=== PATIENT | female | born 1940 | race Caucasian/White ===

== ENCOUNTER 2016-11-02 14:23 | Inpatient (IN) | payer OTHER ==
--- NOTE | 2016-11-02 14:55 | PDOC ---
History of Present Illness - General History Source: Patient Exam Limitations: No Limitations - History of Present Illness Initial Comments: 11/02/16 16:14 The patient is a 76 year old female with a significant past medical history of Migraines, CAD, HTN, mvp, asthma, constipation, diverticulosis, gastritis, GERD , hiatal hernia, irritable bowel disease, peptic ulcer disease, Hypothyroidism, early glaucoma, cervical and lumbar radiculopathy, avascular necrosis of femoral head, who is sent in to the ED with SOB while walking and high blood pressure. Patient states she has had a significant recent history of injury and illness. Patient states she had surgery on October 13 for a fractured humerus of the right arm. She states she also had pneumonia. Patient denies any pain, or any other symptoms. Past Surgical History: Appendectomy, Cataract Removal, Cholecystectomy, Colectomy, Colonoscopy, Oopherectomy, Upper Endoscopy <Evan Winters - Last Filed: 11/02/16 16:14> <Guillermo Dior - Last Filed: 11/02/16 19:33> <Pinky Lewis - Last Filed: 11/03/16 10:03> - General Chief Complaint: Tachycardia Stated Complaint: (PCP SENT) HIGH BP Time Seen by Provider: 11/02/16 14:48 Past History <Evan Winters - Last Filed: 11/02/16 16:14> <Guillermo Dior - Last Filed: 11/02/16 19:33> - Past Medical History Anemia: Yes Asthma: Yes (NO RECENT ATTACK) Cancer: No Cardiac Disorders: Yes (,MITRAL VALVE PROLAPSE) CVA: No COPD: No CHF: No Dementia: No Diabetes: No GI Disorders: Yes (H/O COLON POLYPS, acid reflux) Disorders: No HTN: Yes Hypercholesterolemia: No Liver Disease: Yes (NON ALCOHOLIC FATTY LIVER) Seizures: No Thyroid Disease: Yes - Surgical History Abdominal Surgery: Yes (SX FOR OBSTRUCTIONS AND ADHESIONS) Appendectomy: Yes Cardiac Surgery: No Cholecystectomy: Yes GI Surgery: Yes Lung Surgery: No Neurologic Surgery: No Orthopedic Surgery: No - Psycho/Social/Smoking Cessation Hx Anxiety: No Suicidal Ideation: No Smoking Status: No Smoking History: Never smoked Have you smoked in the past 12 months: No Number of Cigarettes Smoked Daily: 0 Information on smoking cessation initiated: No Hx Alcohol Use: No Drug/Substance Use Hx: No Substance Use Type: None Hx Substance Use Treatment: No <Pinky Lewis - Last Filed: 11/03/16 10:03> - Past Medical History Allergies/Adverse Reactions: Allergies Allergy/AdvReac Type Severity Reaction Status Date / Time metronidazole [From Flagyl] Allergy Intermediate Swelling Verified 11/02/16 14: 29 lactose AdvReac Verified 11/02/16 14:29 fresh fruit Allergy Vomiting Uncoded 11/02/16 14:29 Home Medications: Ambulatory Orders Acetaminophen [Tylenol] 325 mg PO PRN 11/02/16 Alprazolam [Xanax] 2 mg PO DAILY 11/02/16 Ascorbic Acid [C-1000] 1,000 mg PO DAILY 11/02/16 Aspirin [ASA -] 81 mg PO DAILY 11/02/16 Cholecalciferol (Vitamin D3) [Vitamin D3] 2,000 unit PO DAILY 11/02/16 Cyclobenzaprine HCl [Flexeril -] 5 mg PO TID 11/02/16 Dicyclomine HCl [Bentyl -] 10 mg PO ONCE 11/02/16 Diltiazem HCl [Diltiazem 24Hr Cd] 240 mg PO HS 11/02/16 Docusate Sodium [Dok] 100 mg PO ASDIR 11/02/16 Iron Ps Cmplx/Vit B12/FA [Ferrex 150 Forte Capsule] 1 each PO DAILY 11/02/16 Levofloxacin [Levaquin] 500 mg PO DAILY 11/02/16 Levothyroxine [Synthroid -] 25 mcg PO DAILY 11/02/16 Montelukast Na [Singulair -] 10 mg PO DAILY 11/02/16 Naloxegol Oxalate [Movantik] 25 mg PO DAILY 11/02/16 Nitroglycerin [Nitrostat] 0.4 mg SL PRN 11/02/16 Nortriptyline HCl [Pamelor -] 50 mg PO HS 11/02/16 Ondansetron [Zofran Odt -] 4 mg SL TID 11/02/16 Oxycodone HCl [Roxicodone -] 5 mg PO Q4H 11/02/16 Potassium Chloride 10 meq PO DAILY 11/02/16 Quinapril HCl [Accupril] 20 mg PO DAILY 11/02/16 Ranitidine [Zantac -] 150 mg PO HS 11/02/16 Sennosides [Senna] 2 tab PO HS 11/02/16 Sertraline HCl [Zoloft -] 100 mg PO DAILY 11/02/16 Sumatriptan Succinate [Imitrex -] 100 mg PO PRN 11/02/16 Zolpidem Tartrate [Ambien] 10 mg PO HS 11/02/16 Review of Systems - Review of Systems Able to Perform ROS?: Yes Comments:: 11/02/16 16:14 GENERAL/CONSTITUTIONAL: No fever or chills. No weakness. HEAD, EYES, EARS, NOSE AND THROAT: No change in vision. No ear pain or discharge. No sore throat. CARDIOVASCULAR: No chest pain or shortness of breath. RESPIRATORY: + SOB while ambulatory. No cough, wheezing, or hemoptysis. GASTROINTESTINAL: No nausea, vomiting, diarrhea or constipation. GENITOURINARY: No dysuria, frequency, or change in urination. MUSCULOSKELETAL: No joint or muscle swelling or pain. No neck or back pain. SKIN: No rash NEUROLOGIC: No headache, vertigo, loss of consciousness, or change in strength/ sensation. ENDOCRINE: No increased thirst. No abnormal weight change. HEMATOLOGIC/LYMPHATIC: No anemia, easy bleeding, or history of blood clots. ALLERGIC/IMMUNOLOGIC: No hives or skin allergy. <Evan Winters - Last Filed: 11/02/16 16:14> *Physical Exam - Vital Signs Last Vital Signs Temp Pulse Resp BP Pulse Ox 98.3 F 107 H 18 136/71 93 L 11/02/16 14:30 11/02/16 15:00 11/02/16 14:30 11/02/16 15:00 11/02/16 14:30 - Physical Exam Comments: 11/02/16 16:15 GENERAL/CONSTITUTIONAL: No fever, no lethargy HEAD, EYES, EARS, NOSE AND THROAT: No eye discharge. No ear pain or discharge. No sore throat. CARDIOVASCULAR: No chest pain. RESPIRATORY: No cough, no wheezing. GASTROINTESTINAL: No pain, nausea, vomiting, diarrhea or constipation. GENITOURINARY: No dysuria, no change in urine output MUSCULOSKELETAL: No joint pain. No neck or back pain. SKIN: No rash NEUROLOGIC: No headache, loss of consciousness, irritability. ENDOCRINE: No increased thirst. No abnormal weight change. ALLERGIC/IMMUNOLOGIC: No hives or skin allergy. <Evan Winters - Last Filed: 11/02/16 16:14> - Vital Signs Last Vital Signs Temp Pulse Resp BP Pulse Ox 98.3 F 91 H 18 128/71 95 11/02/16 14:30 11/02/16 18:52 11/02/16 18:52 11/02/16 18:52 11/02/16 18:52 <Guillermo Dior - Last Filed: 11/02/16 19:33> - Vital Signs Last Vital Signs Temp Pulse Resp BP Pulse Ox 98.3 F 119 H 18 129/89 93 L 11/02/16 14:30 11/02/16 14:30 11/02/16 14:30 11/02/16 14:30 11/02/16 14:30 <Pinky Lewis - Last Filed: 11/03/16 10:03> ED Treatment Course - LABORATORY CBC & Chemistry Diagram: 11/02/16 15:00 11/02/16 15:00 - ADDITIONAL ORDERS Additional order review: Laboratory Results 11/02/16 15:00 Sodium 140 Potassium 3.7 D Chloride 104 Carbon Dioxide 30 Anion Gap 6 L BUN 9 D Creatinine 0.8 Creat Clearance w eGFR > 60 Random Glucose 105 D Calcium 8.5 Total Bilirubin 0.4 D AST 13 L D ALT 15 Alkaline Phosphatase 113 Creatine Kinase 34 Troponin I < 0.02 Total Protein 6.7 Albumin 3.3 L 11/02/16 15:00 RBC 4.22 MCV 85.0 MCHC 32.1 RDW 20.4 H D MPV 8.3 Neutrophils % 60.7 D Lymphocytes % 26.6 D Monocytes % 9.3 D Eosinophils % 1.8 D Basophils % 1.6 D <Evan Winters - Last Filed: 11/02/16 16:14> - LABORATORY CBC & Chemistry Diagram: 11/02/16 15:00 11/02/16 15:00 - ADDITIONAL ORDERS Additional order review: Laboratory Results 11/02/16 11/02/16 11/02/16 16:00 15:00 15:00 INR 1.13 D-Dimer 825 H Sodium 140 Potassium 3.7 D Chloride 104 Carbon Dioxide 30 Anion Gap 6 L BUN 9 D Creatinine 0.8 Creat Clearance w eGFR > 60 Random Glucose 105 D Calcium 8.5 Total Bilirubin 0.4 D AST 13 L D ALT 15 Alkaline Phosphatase 113 Creatine Kinase 34 Troponin I < 0.02 Total Protein 6.7 Albumin 3.3 L 11/02/16 15:00 RBC 4.22 MCV 85.0 MCHC 32.1 RDW 20.4 H D MPV 8.3 Neutrophils % 60.7 D Lymphocytes % 26.6 D Monocytes % 9.3 D Eosinophils % 1.8 D Basophils % 1.6 D - Medications Given in the ED: ED Medications Discontinued Medications Generic Name Dose Route Start Last Admin Trade Name Freq PRN Reason Stop Dose Admin Sodium Chloride 1,000 mls @ 1,000 mls/hr 11/02/16 17:12 11/02/16 18:09 Normal Saline - IV 11/02/16 18:11 1,000 mls/hr ASDIR STA Administration <Guillermo Dior - Last Filed: 11/02/16 19:33> - LABORATORY CBC & Chemistry Diagram: 11/03/16 08:00 11/03/16 08:00 <Pinky Lewis - Last Filed: 11/03/16 10:03> Medical Decision Making - Medical Decision Making 11/02/16 17:11 CXR and lab findings d/w patient. Will obtain CTA to r/o PE. 11/02/16 19:02 CTA negative for PE, but shows pna. D/w Dr. Sosa, will admit for HCAP. <Pinky Lewis - Last Filed: 11/03/16 10:03> *DC/Admit/Observation/Transfer - Attestations Scribe Attestion: 11/02/16 16:15 Documentation prepared by Evan Winters, acting as biomedical manager for Pinky Lewis MD, . <Evan Winters - Last Filed: 11/02/16 16:14> - Discharge Dispostion Admit: Yes <Guillermo Dior - Last Filed: 11/02/16 19:33> - Discharge Dispostion Admit: Yes <Pinky Lewis - Last Filed: 11/03/16 10:03> Diagnosis at time of Disposition: HCAP (healthcare-associated pneumonia) - Discharge Dispostion Condition at time of disposition: Stable - Referrals
[2016-11-02 15:27] LABS: BASOPHIL 1.6 % (0-2.0); EOSINOPHIL 1.8 % (0-4.5); MCH 27.3 pg (25.7-33.7); MCHC 32.1 g/dl (32.0-36.0); MEAN PLT VOLUME 8.3 fl (7.5-11.1); NEUTROPHILS 60.7 % (42.8-82.8); PLATELET COUNT 293 K/MM3 (134-434); RDW 20.4 % (11.6-15.6); WHITE BLOOD COUNT 3.9 K/mm3 (4.0-10.0)
[2016-11-02 15:35] LABS: ALBUMIN 3.3 g/dl (3.4-5.0); ANION GAP 6 (8-16); BILIRUBIN,TOTAL 0.4 mg/dL (0.2-1.0); CALCIUM 8.5 mg/dL (8.5-10.1); CO2 30 mmol/L (21-32); CREATININE 0.8 mg/dL (0.55-1.02); GLUCOSE,RANDOM 105 mg/dL (74-106); SGOT/AST 13 U/L (15-37); SGPT/ALT 15 U/L (12-78); TOT PROT 6.7 g/dl (6.4-8.2)
[2016-11-02 15:37] LABS: ALK PHOS 113 U/L (45-117); TROPONIN I < 0.02 ng/ml (0.00-0.05)
[2016-11-02 16:03] LABS: INR 1.13 (0.82-1.09); PROTHROMBIN TIME (PATIENT) 12.5 SEC (9.98-11.88)
--- NOTE | 2016-11-02 16:06 | EKG ---
Test Reason : Blood Pressure : / mmHG Vent. Rate : 100 BPM Atrial Rate : 100 BPM P-R Int : 140 ms QRS Dur : 096 ms QT Int : 340 ms P-R-T Axes : 059 -02 041 degrees QTc Int : 438 ms NORMAL SINUS RHYTHM NONSPECIFIC ST AND T WAVE ABNORMALITY ABNORMAL ECG WHEN COMPARED WITH ECG OF 07-OCT-2016 20:28, VENT. RATE HAS INCREASED BY 34 BPM Confirmed by ALEJANDRO ADAIR MD ([id number]) on 11/02/2016 4:06:29 PM Referred By: Confirmed By:ALEJANDRO ADAIR MD
[2016-11-02] MEDS ORDERED: SODIUM CHLORIDE 1,000 ML IV STA (17:12)
[2016-11-02] MEDS ORDERED: CEFEPIME HCL 2 GM VIAL (RESTRICTED TO ID) IVPB ONE (19:02)
[2016-11-02] MEDS ORDERED: VANCOMYCIN 1,000 MG in DEXTROSE 5%-WATER - 250 ML IVPB ONE (19:02)
[2016-11-02] MEDS ORDERED: LEVOFLOXACIN 750 MG IVPB 150 ML IVPB ONE (19:02)
[2016-11-02] MEDS ORDERED: ALPRAZolam 2 MG TABLET PO PRN (20:09)
[2016-11-02] MEDS ORDERED: ONDANSETRON 4 MG/2 ML VIAL IVPB PRN (20:11)
[2016-11-02] MEDS ORDERED: ALBUTEROL SO4 0.083% IH SOL 2.5 MG/3 ML VIAL.NEB. NEB PRN (20:11)
[2016-11-02] MEDS ORDERED: NITROGLYCERIN SUBLINGUAL 1/150 0.4 MG TAB SL PRN (20:15)
[2016-11-02] MEDS ORDERED: CEFEPIME 100 ML IVPB ONE (20:58)
[2016-11-02] MEDS ORDERED: VANCOMYCIN 1 GRAM (PRE-DOCKED) 250 ML IVPB ONE (22:19)
[2016-11-02] MEDS: SENNOSIDES 8.6MG TABLET (FP) PO SCH (23:33)
[2016-11-02] MEDS: RANITIDINE HCL 150 MG TABLET (FP) PO SCH (23:33)
[2016-11-02] MEDS: CYCLOBENZAPRINE HCL 10 MG TABLET (FP) PO SCH (23:33)
[2016-11-02] MEDS: NORTRIPTYLINE HCL 25 MG CAPSULE PO SCH (23:33)
[2016-11-03] MEDS: oxyCODONE HCL 5 MG TABLET PO PRN ×3 (00:21→22:06)
[2016-11-03] MEDS ORDERED: oxyCODONE HCL 5 MG TABLET ONE (00:22)
[2016-11-03] MEDS ORDERED: IPRATROPIUM BR 0.02% 0.5 MG/2.5 ML VIAL.NEB. NEB ONE (00:27)
[2016-11-03] MEDS: IPRATROPIUM BR 0.02% 0.5 MG/2.5 ML VIAL.NEB. NEB SCH ×3 (00:28→17:39)
[2016-11-03 08:09] LABS: BASOPHIL 0.3 % (0-2.0); EOSINOPHIL 4.7 % (0-4.5); MCH 27.1 pg (25.7-33.7); MCHC 31.6 g/dl (32.0-36.0); MEAN CELL VOLUME 85.6 fl (80-96); MEAN PLT VOLUME 7.8 fl (7.5-11.1); NEUTROPHILS 51.7 % (42.8-82.8); PLATELET COUNT 269 K/MM3 (134-434); RDW 20.4 % (11.6-15.6); WHITE BLOOD COUNT 3.9 K/mm3 (4.0-10.0)
[2016-11-03 08:59] LABS: CALCIUM 8.4 mg/dL (8.5-10.1); CREATININE 0.7 mg/dL (0.55-1.02); MAGNESIUM 1.5 mg/dL (1.8-2.4); PHOSPHOROUS 3.7 mg/dL (2.5-4.9)
--- NOTE | 2016-11-03 09:29 | PN ---
Progress Note (short form) - Note Progress Note: ID consult dictated imp/reccd sent to ED with Tachycardia has worsening MCDERMOTT no cough no fevers chest ct reviewed with radiologist bibasilar infiltrates received vanco/levaquin/cefepime in ED HAP multiple recent admissions in the last one month cefepime urinary antigens will follow with you
[2016-11-03] MEDS: ASPIRIN 81 MG CHEWABLE TABLETS PO SCH (09:55)
[2016-11-03] MEDS: MONTELUKAST NA 10 MG TABLET PO SCH (09:56)
[2016-11-03] MEDS: LEVOTHYROXINE NA 25 MCG TABLET (FP) PO SCH (09:57)
[2016-11-03] MEDS: CYCLOBENZAPRINE HCL 10 MG TABLET (FP) PO SCH ×3 (09:57→21:53)
[2016-11-03] MEDS: ASCORBIC ACID 500 MG TABLET (FP) PO SCH (09:57)
[2016-11-03] MEDS ORDERED: ASCORBIC ACID 1000 MG PO SCH (10:00)
[2016-11-03] MEDS ORDERED: POTASSIUM CHLORIDE TABS 10 MEQ TABLET.ER (FP) PO SCH (10:00)
[2016-11-03] MEDS ORDERED: PATIENT'S OWN MEDICATION (NON-FORMULARY) (Potassium Chloride [Potassium Chloride] 10 MEQ) PO SCH (10:00)
[2016-11-03] MEDS ORDERED: PATIENT'S OWN MEDICATION (NON-FORMULARY) (Sertraline Hcl 100 MG) PO SCH (10:00)
[2016-11-03] MEDS ORDERED: PATIENT'S OWN MEDICATION (NON-FORMULARY) (Naloxegol Oxalate [Movantik] 25 MG) PO SCH (10:00)
[2016-11-03] MEDS: CHOLECALCIFEROL (VITAMIN D3) 1,000 UNIT TABLET (FP) PO SCH (10:03)
[2016-11-03] MEDS: ENOXAPARIN NA (PORCINE) 40 MG/0.4 ML DISP.SYRIN SQ SCH (10:04)
[2016-11-03] MEDS: SERTRALINE HCL 50 MG TABLET (FP) PO SCH (10:04)
[2016-11-03] MEDS: ACETAMINOPHEN 325 MG TABLET (FP) PO PRN ×2 (10:06→18:32)
[2016-11-03] MEDS ORDERED: CEFEPIME HCL 1 GM VIAL (RESTRICTED TO ID) IVPB SCH (10:30)
[2016-11-03 11:30] VITALS: BMI 31.0
--- NOTE | 2016-11-03 12:54 | HP ---
Admitting History and Physical - Primary Care Physician PCP: Jong Rodgers - Admission Chief Complaint: Racing heart and some SOB on exertion. History of Present Illness: Patient has recently had surgery on her right shoulder and then twisted her right upper arm getting out of bed causing an unusual fracture of he humerus that had to be treated at [facility]. She was visited by OT and PT at home yesterday and both called my office reporting marked increased resting HR and rate over 125 when walking a few steps. Some SOB but not really coughing a lot. Rec: ER and CAT Scan chest revealed bilateral infiltrates and not PE. patient had not been using her albuterol inhale a great deal recently although she has a hx. of asthma. 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, NAFLD) Renal/: Yes: UTI, Other (chronic UTI's) Reproductive: Yes: Other (2 adopted children) ...: No Psych: Yes: Anxiety Musculoskeletal: Yes: Chronic low back pain, Osteoarthritis, Other (chronic abd pain) Endocrine: Yes: Hypothyroidism - Past Surgical History Past Surgical History: Yes: Appendectomy, Cataract Removal, Cholecystectomy, Colectomy, Colonoscopy, Oopherectomy, Upper Endoscopy - Advance Directives Advance Directives: Yes: Health Care Proxy - Smoking History Smoking history: Never smoked Have you smoked in the past 12 months: No Aproximately how many cigarettes per day: 0 - Alcohol/Substance Use Hx Alcohol Use: No History of Substance Use: reports: None - Social History Usual Living Arrangement: Yes: With Spouse ADL: Independent 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 History of Recent Travel: No Home Medications - Allergies Allergies/Adverse Reactions: Allergies Allergy/AdvReac Type Severity Reaction Status Date / Time metronidazole [From Flagyl] Allergy Intermediate Swelling Verified 11/02/16 14: 29 lactose AdvReac Verified 11/02/16 14:29 fresh fruit Allergy Vomiting Uncoded 11/02/16 14:29 - Home Medications Home Medications: Ambulatory Orders Acetaminophen [Tylenol] 325 mg PO PRN 11/02/16 Alprazolam [Xanax] 2 mg PO DAILY 11/02/16 Ascorbic Acid [C-1000] 1,000 mg PO DAILY 11/02/16 Aspirin [ASA -] 81 mg PO DAILY 11/02/16 Cholecalciferol (Vitamin D3) [Vitamin D3] 2,000 unit PO DAILY 11/02/16 Cyclobenzaprine HCl [Flexeril -] 5 mg PO TID 11/02/16 Dicyclomine HCl [Bentyl -] 10 mg PO ONCE 11/02/16 Diltiazem HCl [Diltiazem 24Hr Cd] 240 mg PO HS 11/02/16 Docusate Sodium [Dok] 100 mg PO ASDIR 11/02/16 Iron Ps Cmplx/Vit B12/FA [Ferrex 150 Forte Capsule] 1 each PO DAILY 11/02/16 Levofloxacin [Levaquin] 500 mg PO DAILY 11/02/16 Levothyroxine [Synthroid -] 25 mcg PO DAILY 11/02/16 Montelukast Na [Singulair -] 10 mg PO DAILY 11/02/16 Naloxegol Oxalate [Movantik] 25 mg PO DAILY 11/02/16 Nitroglycerin [Nitrostat] 0.4 mg SL PRN 11/02/16 Nortriptyline HCl [Pamelor -] 50 mg PO HS 11/02/16 Ondansetron [Zofran Odt -] 4 mg SL TID 11/02/16 Oxycodone HCl [Roxicodone -] 5 mg PO Q4H 11/02/16 Potassium Chloride 10 meq PO DAILY 11/02/16 Quinapril HCl [Accupril] 20 mg PO DAILY 11/02/16 Ranitidine [Zantac -] 150 mg PO HS 11/02/16 Sennosides [Senna] 2 tab PO HS 11/02/16 Sertraline HCl [Zoloft -] 100 mg PO DAILY 11/02/16 Sumatriptan Succinate [Imitrex -] 100 mg PO PRN 11/02/16 Zolpidem Tartrate [Ambien] 10 mg PO HS 11/02/16 Family Disease History - Family Disease History Family Disease History: CA: Father (lung), Mother (breast) Review of Systems - Review of Systems Constitutional: reports: Malaise Eyes: reports: No Symptoms Cardiovascular: reports: Palpitations Respiratory: reports: Exercise Intolerance, SOB on Exertion Gastrointestinal: reports: Nausea Genitourinary: reports: No Symptoms Musculoskeletal: reports: Joint Pain, Muscle Pain (right shoulder and humerus) Neurological: reports: Tremors (occ tremors), Weakness Psychiatric: reports: Anxiety Pain Intensity: 3 Physical Examination Vital Signs: Vital Signs Temperature 98.5 F 11/03/16 11:20 Pulse Rate 88 11/03/16 12:06 Respiratory Rate 20 11/03/16 12:06 Blood Pressure 126/62 11/03/16 12:06 O2 Sat by Pulse Oximetry (%) 93 L 11/03/16 03:01 Constitutional: Yes: Calm, Pallor Neck: Yes: Supple Cardiovascular: Yes: Regular Rate and Rhythm Respiratory: Yes: Diminished (at bases) Gastrointestinal: Yes: Soft, Hypoactive Bowel Sounds Renal/: No: Garcia Present Extremities: Yes: Other (RUE in sling) Edema: LLE: Trace, RLE: Trace Neurological: Yes: Alert, Oriented Labs: CBC, BMP 11/03/16 08:00 11/03/16 08:00 Imaging - Results Cat Scan: Report Reviewed Problem List - Problems (1) Community acquired pneumonia Assessment/Plan: Confirmed on Chest CAt Scan Seen by ID MD; on Rx Code(s): J18.9 - PNEUMONIA, UNSPECIFIED ORGANISM (2) Humeral fracture Assessment/Plan: With recent surgery in addition to recent shoulder surgery Code(s): S42.309A - UNSP FRACTURE OF SHAFT OF HUMERUS, UNSP ARM, INIT Qualifiers: Encounter type: initial encounter Humerus Location: shaft Fracture type: closed Fracture morphology: oblique Fracture alignment: displaced Laterality: right Qualified Code(s): S42.331A - Displaced oblique fracture of shaft of humerus, right arm, initial encounter for closed fracture (3) Asthma Assessment/Plan: No wheezing noted on this admission. Code(s): J45.909 - UNSPECIFIED ASTHMA, UNCOMPLICATED (4) Hypothyroid Assessment/Plan: On Rx Code(s): E03.9 - HYPOTHYROIDISM, UNSPECIFIED (5) Pain Assessment/Plan: On PRN Rx Code(s): R52 - PAIN, UNSPECIFIED
[2016-11-03] MEDS ORDERED: MAGNESIUM SULF 50% (8.12 MEQ/2 ML-1 GM VIAL) IVPB ONE (13:08)
[2016-11-03] MEDS ORDERED: PT OWN MED DRAWER 7, Y5N ONE ×2 (13:19→15:39)
[2016-11-03] MEDS: CEFEPIME 1 GM in DEXTROSE 5%-WATER - 100 ML IVPB SCH ×2 (13:23→21:53)
[2016-11-03] MEDS: QUINAPRIL HCL 20 MG TABLET (FP) PO SCH (15:42)
[2016-11-03] MEDS: FE POLYSAC/CYANOCOBAL/FA COMBO CAPSULE PO SCH (15:43)
--- NOTE | 2016-11-03 16:11 | CON.CARD ---
Consult Consult Specialty:: Cardiology Referred by:: Dr. Rodgers Reason for Consultation:: Cardiac evaluation - History of Present Illness Chief Complaint: Shortness of breath History of Present Illness: Patient is a 76 year old female well know to our service (sees Dr. Decker) with underlying history of MVP, HTN, bronchial asthma and GERD who presents with increase in SOB. She recently had a fracture of right humerus which had to be surgically repaired at [facility]. Post operative course was unremarkable and patient had PT at home. She reported HR over 125 beats when walking few steps and complained of shortness of breath with mild cough. CT of chest did not reveal evidence of PTE, but showed bilateral infiltrates suggestive of pneumonia. She is currently admitted for further treatment. She denies chest pain or palpitations. She denies paroxysmal nocturnal dyspnea or orthopnea. She denies fever or chills. She denies headache or lightheadedness. 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 cervical and lumbar radiculopathy. avascular necrosis of femoral head. 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 History of Recent Travel: No Home Medications - Allergies Allergies/Adverse Reactions: Allergies Allergy/AdvReac Type Severity Reaction Status Date / Time metronidazole [From Flagyl] Allergy Intermediate Swelling Verified 11/02/16 14: 29 lactose AdvReac Verified 11/02/16 14:29 fresh fruit Allergy Vomiting Uncoded 11/02/16 14:29 - Home Medications Home Medications: Ambulatory Orders Acetaminophen [Tylenol] 325 mg PO PRN 11/02/16 Alprazolam [Xanax] 2 mg PO DAILY 11/02/16 Ascorbic Acid [C-1000] 1,000 mg PO DAILY 11/02/16 Aspirin [ASA -] 81 mg PO DAILY 11/02/16 Cholecalciferol (Vitamin D3) [Vitamin D3] 2,000 unit PO DAILY 11/02/16 Cyclobenzaprine HCl [Flexeril -] 5 mg PO TID 11/02/16 Dicyclomine HCl [Bentyl -] 10 mg PO ONCE 11/02/16 Diltiazem HCl [Diltiazem 24Hr Cd] 240 mg PO HS 11/02/16 Docusate Sodium [Dok] 100 mg PO ASDIR 11/02/16 Iron Ps Cmplx/Vit B12/FA [Ferrex 150 Forte Capsule] 1 each PO DAILY 11/02/16 Levofloxacin [Levaquin] 500 mg PO DAILY 11/02/16 Levothyroxine [Synthroid -] 25 mcg PO DAILY 11/02/16 Montelukast Na [Singulair -] 10 mg PO DAILY 11/02/16 Naloxegol Oxalate [Movantik] 25 mg PO DAILY 11/02/16 Nitroglycerin [Nitrostat] 0.4 mg SL PRN 11/02/16 Nortriptyline HCl [Pamelor -] 50 mg PO HS 11/02/16 Ondansetron [Zofran Odt -] 4 mg SL TID 11/02/16 Oxycodone HCl [Roxicodone -] 5 mg PO Q4H 11/02/16 Potassium Chloride 10 meq PO DAILY 11/02/16 Quinapril HCl [Accupril] 20 mg PO DAILY 11/02/16 Ranitidine [Zantac -] 150 mg PO HS 11/02/16 Sennosides [Senna] 2 tab PO HS 11/02/16 Sertraline HCl [Zoloft -] 100 mg PO DAILY 11/02/16 Sumatriptan Succinate [Imitrex -] 100 mg PO PRN 01/23/17 Zolpidem Tartrate [Ambien] 10 mg PO HS 11/02/16 Family Disease History - Family Disease History Family Disease History: CA: Father (lung), Mother (breast) Review of Systems - Review of Systems Constitutional: denies: Chills, Fever Cardiovascular: reports: Shortness of Breath. denies: Chest Pain, Palpitations Respiratory: reports: Cough, SOB, SOB on Exertion. denies: Hemoptysis, Orthopnea, PND Gastrointestinal: reports: Constipation. denies: Abdominal Pain, Diarrhea, Melena, Nausea, Rectal Bleeding, Vomiting Genitourinary: denies: Dysuria Musculoskeletal: reports: Joint Pain Neurological: denies: Dizziness, Headache, Seizure, Syncope Vital Signs: Vital Signs Temperature 98.5 F 11/03/16 11:20 Pulse Rate 86 11/03/16 14:04 Respiratory Rate 20 11/03/16 14:04 Blood Pressure 111/49 11/03/16 14:04 O2 Sat by Pulse Oximetry (%) 93 L 11/03/16 03:01 Neck: Yes: Supple Respiratory: Yes: Diminished Gastrointestinal: Yes: Normal Bowel Sounds, Soft. No: Tenderness Cardiovascular: Yes: Regular Rate and Rhythm JVD: No Carotid Bruit: No PMI: Non-Displaced Heart Sounds: Yes: S1, S2, Clicks Extremities: Yes: Other (Rigt upper extermity support) Edema: No - Other Data Labs, Other Data: CBC, BMP 11/03/16 08:00 11/03/16 08:00 INR, PTT INR 1.13 (0.82-1.09) 11/02/16 15:00 Imaging - Results Chest X-ray: Report Reviewed (Unremarkable) Cat Scan: Report Reviewed (Chest CT - bibasilar consolidation, no PTE) EKG: Report Reviewed Problem List - Problems (1) Community acquired pneumonia Code(s): J18.9 - PNEUMONIA, UNSPECIFIED ORGANISM (2) Humeral fracture Code(s): S42.309A - UNSP FRACTURE OF SHAFT OF HUMERUS, UNSP ARM, INIT Qualifiers: Encounter type: initial encounter Humerus Location: shaft Fracture type: closed Fracture morphology: oblique Fracture alignment: displaced Laterality: right Qualified Code(s): S42.331A - Displaced oblique fracture of shaft of humerus, right arm, initial encounter for closed fracture (3) HTN (hypertension) Code(s): I10 - ESSENTIAL (PRIMARY) HYPERTENSION Qualifiers: Hypertension type: essential hypertension Qualified Code(s): I10 - Essential (primary) hypertension (4) Hypothyroid Code(s): E03.9 - HYPOTHYROIDISM, UNSPECIFIED Qualifiers: Hypothyroidism type: unspecified Qualified Code(s): E03.9 - Hypothyroidism, unspecified (5) Mitral valve prolapse Code(s): I34.1 - NONRHEUMATIC MITRAL (VALVE) PROLAPSE Assessment/Plan 1. Clinical presentation c/w pneumonia 2. History of MVP 3. Recent right humeral fracture - post repair 4. History of HTN PLAN: 1. Antibiotic coverage 2. Bronchodilators, nebulizer,Singulair. 3. Continue Cardizem CD and Quinapril 4. Continue ASA 5. DVT prophylaxis 6. Transthoracic echocardiography Further plans are to follow Seferino Warner MD
[2016-11-03] MEDS: NORTRIPTYLINE HCL 25 MG CAPSULE PO SCH (21:54)
[2016-11-03] MEDS: SENNOSIDES 8.6MG TABLET (FP) PO SCH (21:55)
[2016-11-03] MEDS: RANITIDINE HCL 150 MG TABLET (FP) PO SCH (21:55)
[2016-11-04] MEDS: IPRATROPIUM BR 0.02% 0.5 MG/2.5 ML VIAL.NEB. NEB SCH ×4 (06:00→19:29)
[2016-11-04] MEDS: CYCLOBENZAPRINE HCL 10 MG TABLET (FP) PO SCH ×3 (06:10→21:56)
[2016-11-04] MEDS: LEVOTHYROXINE NA 25 MCG TABLET (FP) PO SCH (06:11)
[2016-11-04 06:59] LABS: BASOPHIL 1.8 % (0-2.0); EOSINOPHIL 5.4 % (0-4.5); MCH 27.2 pg (25.7-33.7); MEAN CELL VOLUME 85.1 fl (80-96); MEAN PLT VOLUME 8.5 fl (7.5-11.1); NEUTROPHILS 42.1 % (42.8-82.8); PLATELET COUNT 253 K/MM3 (134-434); RDW 20.7 % (11.6-15.6); WHITE BLOOD COUNT 3.4 K/mm3 (4.0-10.0)
[2016-11-04 07:36] LABS: CALCIUM 8.1 mg/dL (8.5-10.1); CREATININE 0.7 mg/dL (0.55-1.02); MAGNESIUM 1.9 mg/dL (1.8-2.4)
[2016-11-04 08:21] LABS: ANISOCYTOSIS 2+; HYPOCHROMIA FEW; MICROCYTOSIS 1+; POLYCHROMASIA FEW
--- NOTE | 2016-11-04 08:59 | PN ---
Progress Note, Physician Chief Complaint: feels better; rare cough History of Present Illness: Patient with pulmonary infiltrates on IV antibiotics was noted to have tachycardia above 125/min as outpatient. Seen by Cardiology. Recent admission for humeral Fracture and shoulder surgery right side. Hx chronic pain, migraines and anxiety. - Current Medication List Current Medications: Active Medications Acetaminophen (Tylenol -) 650 mg PO Q4H PRN PRN Reason: FEVER OR PAIN Last Admin: 11/03/16 18:32 Dose: 650 mg Albuterol Sulfate (Ventolin 0.083% Nebulizer Soln -) 1 amp NEB Q6H PRN PRN Reason: SHORT OF BREATH/WHEEZING Alprazolam (Xanax -) 2 mg PO DAILY PRN PRN Reason: ANXIETY Last Admin: 11/03/16 23:41 Dose: 2 mg Ascorbic Acid (Vitamin C -) 1,000 mg PO DAILY [facility] Last Admin: 11/03/16 09:57 Dose: 1,000 mg Aspirin (Asa -) 81 mg PO DAILY [facility] Last Admin: 11/03/16 09:55 Dose: 81 mg B12/Folic Ac/Intrin Fact/Iron/Vit C (Niferex-150 Forte -) 1 each PO DAILY [facility] Last Admin: 11/03/16 15:43 Dose: 1 each Cholecalciferol (Vitamin D3 -) 2,000 unit PO DAILY [facility] Last Admin: 11/03/16 10:03 Dose: 2,000 unit Cyclobenzaprine HCl (Flexeril -) 5 mg PO TID [facility] Last Admin: 11/04/16 06:10 Dose: 5 mg Diltiazem HCl (Cardizem Cd -) 240 mg PO HS [facility] Last Admin: 11/03/16 21:55 Dose: 240 mg Enoxaparin Sodium (Lovenox -) 40 mg SQ DAILY [facility] Last Admin: 11/03/16 10:04 Dose: 40 mg Cefepime HCl 1 gm/ Dextrose 100 mls @ 200 mls/hr IVPB BID [facility] Last Admin: 11/03/16 21:53 Dose: 200 mls/hr Potassium Chloride (Potassium Chloride 10 Meq Premix Ivpb -) 100 mls @ 100 mls/ hr IVPB Q60M [facility] Stop: 11/04/16 09:59 Ipratropium [place] (Atrovent 0.02% Nebulizer -) 1 amp NEB Q6HPO [facility] Last Admin: 11/04/16 06:00 Dose: 1 amp Levothyroxine Sodium (Synthroid -) 25 mcg PO ACBK [facility] Last Admin: 11/04/16 06:11 Dose: 25 mcg Montelukast Sodium (Singulair -) 10 mg PO DAILY [facility] Last Admin: 11/03/16 09:56 Dose: 10 mg Nitroglycerin (Nitrostat -) 0.4 mg SL PRN PRN Non-Formulary Medication (Naloxegol Oxalate [Movantik]) 25 mg PO DAILY [facility] Nortriptyline HCl (Pamelor -) 50 mg PO HS [facility] Last Admin: 11/03/16 21:54 Dose: 50 mg Ondansetron HCl (Zofran Injection) 4 mg IVPB Q6H PRN PRN Reason: NAUSEA Potassium Chloride (K-Dur -) 20 meq PO BID [facility] Quinapril HCl (Accupril -) 20 mg PO DAILY [facility] Last Admin: 11/03/16 15:42 Dose: 20 mg Ranitidine HCl (Zantac -) 150 mg PO [facility] Last Admin: 11/03/16 21:55 Dose: 150 mg Senna (Senna -) 2 tab PO [facility] Last Admin: 11/03/16 21:55 Dose: 2 tab Sertraline HCl (Zoloft -) 100 mg PO DAILY [facility] Last Admin: 11/03/16 10:04 Dose: 100 mg - Objective Vital Signs: Vital Signs Temperature 98.5 F 11/04/16 08:44 Pulse Rate 88 11/04/16 08:44 Respiratory Rate 18 11/04/16 08:44 Blood Pressure 101/48 11/04/16 08:44 O2 Sat by Pulse Oximetry (%) 96 11/04/16 08:44 Constitutional: Yes: Calm, Pallor Eyes: Yes: Conjunctiva Clear Cardiovascular: Yes: Regular Rate and Rhythm Respiratory: Yes: Diminished (No rales heard but copughs after deep inspiration) Gastrointestinal: Yes: Soft, Hypoactive Bowel Sounds Genitourinary: No: Garcia Present Edema: No Neurological: Yes: Alert, Oriented Labs: CBC, BMP 11/04/16 05:20 11/04/16 05:20 INR, PTT INR 1.13 (0.82-1.09) 11/02/16 15:00 Problem List - Problems (1) Community acquired pneumonia Assessment/Plan: On IV antibiotics; await urine antigen studies On Aerosol Rx; to add chest PT Code(s): J18.9 - PNEUMONIA, UNSPECIFIED ORGANISM (2) Humeral fracture Assessment/Plan: Some discomfort on movement. Code(s): S42.309A - UNSP FRACTURE OF SHAFT OF HUMERUS, UNSP ARM, INIT Qualifiers: Encounter type: initial encounter Humerus Location: shaft Fracture type: closed Fracture morphology: oblique Fracture alignment: displaced Laterality: right (3) Asthma Assessment/Plan: On Aerosol Rx Code(s): J45.909 - UNSPECIFIED ASTHMA, UNCOMPLICATED (4) Hypothyroid Assessment/Plan: On Rx Code(s): E03.9 - HYPOTHYROIDISM, UNSPECIFIED Qualifiers: Hypothyroidism type: unspecified Qualified Code(s): E03.9 - Hypothyroidism, unspecified (5) Pain Assessment/Plan: Stable for now. Code(s): R52 - PAIN, UNSPECIFIED (6) Hypokalemia Assessment/Plan: Will Rx with 1 dose IV Rx and increase PO dose KTab Code(s): E87.6 - HYPOKALEMIA
--- NOTE | 2016-11-04 09:02 | PN ---
Progress Note (short form) - Note Progress Note: doing well still SOB when she gets out of bed Vital Signs Period Temp Pulse Resp BP Sys/Ahn Pulse Ox Last 24 Hr 98.2 F-98.5 F 73-89 18-22 92-130/42-63 93-96 cor-rrr lungs crackles both bases abd soft,nt ext no edema arm in sling CBC, BMP 11/04/16 05:20 11/04/16 05:20 Microbiology 11/02/16 19:48 Blood - Peripheral Venous Blood Culture - Preliminary NO GROWTH OBTAINED AFTER 24 HOURS, INCUBATION TO CONTINUE FOR 4 DAYS. 11/02/16 19:48 Blood - Peripheral Venous Blood Culture - Preliminary NO GROWTH OBTAINED AFTER 24 HOURS, INCUBATION TO CONTINUE FOR 4 DAYS. a/p pneumonia s/p fracture and repair left humerus s/p shoulder replacement continue cefepime f/u cultures f/u urinary antigens
--- NOTE | 2016-11-04 09:05 | PN ---
Progress Note, Physician History of Present Illness: Dyspnea improved, denies chest pain, afebrile. - Current Medication List Current Medications: Active Medications Acetaminophen (Tylenol -) 650 mg PO Q4H PRN PRN Reason: FEVER OR PAIN Last Admin: 11/03/16 18:32 Dose: 650 mg Albuterol Sulfate (Ventolin 0.083% Nebulizer Soln -) 1 amp NEB Q6H PRN PRN Reason: SHORT OF BREATH/WHEEZING Alprazolam (Xanax -) 2 mg PO DAILY PRN PRN Reason: ANXIETY Last Admin: 11/03/16 23:41 Dose: 2 mg Ascorbic Acid (Vitamin C -) 1,000 mg PO DAILY [facility] Last Admin: 11/03/16 09:57 Dose: 1,000 mg Aspirin (Asa -) 81 mg PO DAILY [facility] Last Admin: 11/03/16 09:55 Dose: 81 mg B12/Folic Ac/Intrin Fact/Iron/Vit C (Niferex-150 Forte -) 1 each PO DAILY [facility] Last Admin: 11/03/16 15:43 Dose: 1 each Cholecalciferol (Vitamin D3 -) 2,000 unit PO DAILY [facility] Last Admin: 11/03/16 10:03 Dose: 2,000 unit Cyclobenzaprine HCl (Flexeril -) 5 mg PO TID [facility] Last Admin: 11/04/16 06:10 Dose: 5 mg Diltiazem HCl (Cardizem Cd -) 240 mg PO HS [facility] Last Admin: 11/03/16 21:55 Dose: 240 mg Enoxaparin Sodium (Lovenox -) 40 mg SQ DAILY [facility] Last Admin: 11/03/16 10:04 Dose: 40 mg Cefepime HCl 1 gm/ Dextrose 100 mls @ 200 mls/hr IVPB BID [facility] Last Admin: 11/03/16 21:53 Dose: 200 mls/hr Potassium Chloride (Potassium Chloride 10 Meq Premix Ivpb -) 100 mls @ 100 mls/ hr IVPB Q60M [facility] Stop: 11/04/16 09:59 Ipratropium [place] (Atrovent 0.02% Nebulizer -) 1 amp NEB Q6HPO [facility] Last Admin: 11/04/16 06:00 Dose: 1 amp Levothyroxine Sodium (Synthroid -) 25 mcg PO ACBK [facility] Last Admin: 11/04/16 06:11 Dose: 25 mcg Montelukast Sodium (Singulair -) 10 mg PO DAILY [facility] Last Admin: 11/03/16 09:56 Dose: 10 mg Nitroglycerin (Nitrostat -) 0.4 mg SL PRN PRN Non-Formulary Medication (Naloxegol Oxalate [Movantik]) 25 mg PO DAILY [facility] Nortriptyline HCl (Pamelor -) 50 mg PO [facility] Last Admin: 11/03/16 21:54 Dose: 50 mg Ondansetron HCl (Zofran Injection) 4 mg IVPB Q6H PRN PRN Reason: NAUSEA Potassium Chloride (K-Dur -) 20 meq PO BID [facility] Quinapril HCl (Accupril -) 20 mg PO DAILY [facility] Last Admin: 11/03/16 15:42 Dose: 20 mg Ranitidine HCl (Zantac -) 150 mg PO HS [facility] Last Admin: 11/03/16 21:55 Dose: 150 mg Senna (Senna -) 2 tab PO [facility] Last Admin: 11/03/16 21:55 Dose: 2 tab Sertraline HCl (Zoloft -) 100 mg PO DAILY [facility] Last Admin: 11/03/16 10:04 Dose: 100 mg - Objective Vital Signs: Vital Signs Temperature 98.5 F 11/04/16 08:44 Pulse Rate 88 11/04/16 08:44 Respiratory Rate 18 11/04/16 08:44 Blood Pressure 101/48 11/04/16 08:44 O2 Sat by Pulse Oximetry (%) 96 11/04/16 08:44 Constitutional: Yes: No Distress, Calm Neck: Yes: Supple Cardiovascular: Yes: Regular Rate and Rhythm Respiratory: Yes: Regular, Diminished Gastrointestinal: Yes: Normal Bowel Sounds, Soft Edema: No Labs: CBC, BMP 11/04/16 05:20 11/04/16 05:20 INR, PTT INR 1.13 (0.82-1.09) 11/02/16 15:00 - ....Imaging EKG: Report Reviewed (NSR nonspec T changes) Problem List - Problems (1) Community acquired pneumonia Code(s): J18.9 - PNEUMONIA, UNSPECIFIED ORGANISM (2) Hypokalemia Code(s): E87.6 - HYPOKALEMIA (3) Mitral valve prolapse Code(s): I34.1 - NONRHEUMATIC MITRAL (VALVE) PROLAPSE (4) Anemia Code(s): D64.9 - ANEMIA, UNSPECIFIED Qualifiers: Anemia type: unspecified type Qualified Code(s): D64.9 - Anemia, unspecified (5) Humeral fracture Code(s): S42.309A - UNSP FRACTURE OF SHAFT OF HUMERUS, UNSP ARM, INIT Qualifiers: Encounter type: initial encounter Humerus Location: shaft Fracture type: closed Fracture morphology: oblique Fracture alignment: displaced Laterality: right Qualified Code(s): S42.331A - Displaced oblique fracture of shaft of humerus, right arm, initial encounter for closed fracture (6) HTN (hypertension) Code(s): I10 - ESSENTIAL (PRIMARY) HYPERTENSION Qualifiers: Hypertension type: essential hypertension Qualified Code(s): I10 - Essential (primary) hypertension (7) Hypothyroid Code(s): E03.9 - HYPOTHYROIDISM, UNSPECIFIED Qualifiers: Hypothyroidism type: unspecified Qualified Code(s): E03.9 - Hypothyroidism, unspecified Assessment/Plan 1. Community acquired pneumonia 2. History of MVP 3. Recent right humeral fracture - post repair 4. HTN 5. Hypothyroidism 6. Hypokalemia 7. Anemia PLAN: 1. Cefepime course per C&S, replete K 2. Bronchodilators, Singulair, O2 as needed. 3. Continue Cardizem CD 240 qhs, ASA 81 qd and Quinapril 20 qd 5. DVT and GI prophylaxis 6. F/u transthoracic echocardiography, OOB to chair
[2016-11-04] MEDS ORDERED: KCL 10 MEQ IVPB 100 ML IVPB SCH (09:15)
[2016-11-04] MEDS: CEFEPIME 1 GM in DEXTROSE 5%-WATER - 100 ML IVPB SCH ×2 (09:54→22:02)
[2016-11-04] MEDS: QUINAPRIL HCL 20 MG TABLET (FP) PO SCH (09:56)
[2016-11-04] MEDS: MONTELUKAST NA 10 MG TABLET PO SCH (09:56)
[2016-11-04] MEDS: SERTRALINE HCL 50 MG TABLET (FP) PO SCH (09:56)
[2016-11-04] MEDS: POTASSIUM CHLORIDE TABS 20 MEQ TABLET.ER (FP) PO SCH ×2 (09:56→21:57)
[2016-11-04] MEDS: ASPIRIN 81 MG CHEWABLE TABLETS PO SCH (09:56)
[2016-11-04] MEDS: ASCORBIC ACID 500 MG TABLET (FP) PO SCH (09:57)
[2016-11-04] MEDS: ENOXAPARIN NA (PORCINE) 40 MG/0.4 ML DISP.SYRIN SQ SCH (09:57)
[2016-11-04] MEDS: CHOLECALCIFEROL (VITAMIN D3) 1,000 UNIT TABLET (FP) PO SCH (09:57)
[2016-11-04] MEDS: FE POLYSAC/CYANOCOBAL/FA COMBO CAPSULE PO SCH (09:58)
--- NOTE | 2016-11-04 11:29 | EKG ---
Test Reason : Blood Pressure : / mmHG Vent. Rate : 085 BPM Atrial Rate : 085 BPM P-R Int : 148 ms QRS Dur : 096 ms QT Int : 384 ms P-R-T Axes : 064 -05 027 degrees QTc Int : 456 ms NORMAL SINUS RHYTHM NONSPECIFIC T WAVE ABNORMALITY ABNORMAL ECG WHEN COMPARED WITH ECG OF 02-NOV-2016 14:53, NO SIGNIFICANT CHANGE WAS FOUND Confirmed by LELE RODRIGUEZ, DONAVAN ([id number]) on 11/04/2016 11:29:26 AM Referred By: Julian FREEMAN Confirmed By:DONAVAN ROYAL MD
[2016-11-04] MEDS: oxyCODONE HCL 5 MG TABLET PO PRN ×2 (12:10→22:01)
[2016-11-04] MEDS ORDERED: PT OWN MED DRAWER 7, Y5N ONE (17:17)
[2016-11-04] MEDS: NORTRIPTYLINE HCL 25 MG CAPSULE PO SCH (21:57)
[2016-11-04] MEDS: SENNOSIDES 8.6MG TABLET (FP) PO SCH (21:57)
[2016-11-04] MEDS: RANITIDINE HCL 150 MG TABLET (FP) PO SCH (21:57)
[2016-11-04] MEDS: ACETAMINOPHEN 325 MG TABLET (FP) PO PRN (22:00)
[2016-11-04] MEDS ORDERED: ZOLPIDEM TARTRATE 5 MG TABLET PO ONE (22:30)
[2016-11-05] MEDS: IPRATROPIUM BR 0.02% 0.5 MG/2.5 ML VIAL.NEB. NEB SCH ×4 (00:05→23:46)
[2016-11-05] MEDS: CYCLOBENZAPRINE HCL 10 MG TABLET (FP) PO SCH ×3 (06:20→21:19)
[2016-11-05] MEDS: LEVOTHYROXINE NA 25 MCG TABLET (FP) PO SCH (06:20)
[2016-11-05] MEDS: oxyCODONE HCL 5 MG TABLET PO PRN ×3 (06:23→20:25)
[2016-11-05] MEDS: ACETAMINOPHEN 325 MG TABLET (FP) PO PRN ×3 (06:24→20:29)
[2016-11-05 07:45] LABS: BASOPHIL 0.5 % (0-2.0); MCH 27.1 pg (25.7-33.7); MCHC 31.9 g/dl (32.0-36.0); MEAN PLT VOLUME 7.9 fl (7.5-11.1); NEUTROPHILS 54.2 % (42.8-82.8); PLATELET COUNT 204 K/MM3 (134-434); RDW 20.3 % (11.6-15.6); WHITE BLOOD COUNT 3.2 K/mm3 (4.0-10.0)
[2016-11-05] MEDS ORDERED: VANCOMYCIN 1 GRAM (PRE-DOCKED) 1,000 MG/250 ML BAG IVPB ONE ×2 (08:15→08:45)
[2016-11-05 08:16] LABS: CALCIUM 8.2 mg/dL (8.5-10.1); CREATININE 0.6 mg/dL (0.55-1.02)
--- NOTE | 2016-11-05 09:09 | PN ---
Progress Note (short form) - Note Progress Note: Patient admitted with tachycardia thought to due to pulmonary infiltrates seen on CAT Scan. No coughing and she feels improved. However 1 of 2 Blood C/S from ER shows ? staph. Also falling WBC which may be due to antibiotic. She was given a dose of Vancomycin and repeat C/S done. It is of note that she has had 2 procedures for her right shoulder and humerus recently; 1 at [facility]. On Exam: Vital Signs Period Temp Pulse Resp BP Sys/Ahn Pulse Ox Last 24 Hr 98.2 F-99.2 F 84-102 16-20 97-120/42-77 94-95 Alert Cor Reg: no M heard Chest: Decreased breath sounds at bases Ext: No edema Abnormal Lab Results 11/05/16 11/05/16 07:05 07:05 WBC 3.2 L Hgb 10.2 L Hct 32.1 L MCHC 31.9 L RDW 20.3 H Monocytes % 11.7 H Eosinophils % 6.0 H Calcium 8.2 L ImP: Pneumonia + Blood C/S being evaluated Hypertension on RX Leukopenia ? due to antibiotics Recent Right shoulder and Humerus surgery Chronic Pain Plan: F/U ID Heme consult F/U Lab Patient aware of findings Problem List - Problems (1) Community acquired pneumonia Code(s): J18.9 - PNEUMONIA, UNSPECIFIED ORGANISM (2) Humeral fracture Code(s): S42.309A - UNSP FRACTURE OF SHAFT OF HUMERUS, UNSP ARM, INIT Qualifiers: Encounter type: initial encounter Humerus Location: shaft Fracture type: closed Fracture morphology: oblique Fracture alignment: displaced Laterality: right Qualified Code(s): S42.331A - Displaced oblique fracture of shaft of humerus, right arm, initial encounter for closed fracture (3) Asthma Code(s): J45.909 - UNSPECIFIED ASTHMA, UNCOMPLICATED (4) Hypothyroid Code(s): E03.9 - HYPOTHYROIDISM, UNSPECIFIED Qualifiers: Hypothyroidism type: unspecified Qualified Code(s): E03.9 - Hypothyroidism, unspecified (5) Pain Code(s): R52 - PAIN, UNSPECIFIED (6) Hypokalemia Code(s): E87.6 - HYPOKALEMIA
[2016-11-05 09:41] LABS: THYROID STIMULATING HORMONE 2.12 uIU/ml (0.358-3.74)
[2016-11-05] MEDS: QUINAPRIL HCL 20 MG TABLET (FP) PO SCH ×2 (10:30→15:08)
[2016-11-05] MEDS: CHOLECALCIFEROL (VITAMIN D3) 1,000 UNIT TABLET (FP) PO SCH (10:55)
[2016-11-05] MEDS: FE POLYSAC/CYANOCOBAL/FA COMBO CAPSULE PO SCH (10:55)
[2016-11-05] MEDS: ASCORBIC ACID 500 MG TABLET (FP) PO SCH (10:56)
[2016-11-05] MEDS: ENOXAPARIN NA (PORCINE) 40 MG/0.4 ML DISP.SYRIN SQ SCH (10:56)
[2016-11-05] MEDS: SERTRALINE HCL 50 MG TABLET (FP) PO SCH (10:56)
[2016-11-05] MEDS: ASPIRIN 81 MG CHEWABLE TABLETS PO SCH (10:56)
[2016-11-05] MEDS: POTASSIUM CHLORIDE TABS 20 MEQ TABLET.ER (FP) PO SCH ×2 (10:56→22:43)
[2016-11-05] MEDS: CEFEPIME 1 GM in DEXTROSE 5%-WATER - 100 ML IVPB SCH ×2 (14:10→21:21)
--- NOTE | 2016-11-05 14:18 | PN ---
Progress Note, Physician History of Present Illness: Awake in bed No complaints Breathing non labored Denies cough Afebrile Leukopenic BC GPCCL x 1 bottle - Current Medication List Current Medications: Active Medications Acetaminophen (Tylenol -) 650 mg PO Q4H PRN PRN Reason: FEVER OR PAIN Last Admin: 11/05/16 10:37 Dose: 650 mg Albuterol Sulfate (Ventolin 0.083% Nebulizer Soln -) 1 amp NEB Q6H PRN PRN Reason: SHORT OF BREATH/WHEEZING Alprazolam (Xanax -) 2 mg PO DAILY PRN PRN Reason: ANXIETY Last Admin: 11/03/16 23:41 Dose: 2 mg Ascorbic Acid (Vitamin C -) 1,000 mg PO DAILY [facility] Last Admin: 11/05/16 10:56 Dose: 1,000 mg Aspirin (Asa -) 81 mg PO DAILY [facility] Last Admin: 11/05/16 10:56 Dose: 81 mg B12/Folic Ac/Intrin Fact/Iron/Vit C (Niferex-150 Forte -) 1 each PO DAILY [facility] Last Admin: 11/04/16 09:58 Dose: 1 each Cholecalciferol (Vitamin D3 -) 2,000 unit PO DAILY [facility] Last Admin: 11/05/16 10:55 Dose: 2,000 unit Cyclobenzaprine HCl (Flexeril -) 5 mg PO TID [facility] Last Admin: 11/05/16 06:20 Dose: 5 mg Diltiazem HCl (Cardizem Cd -) 240 mg PO HS [facility] Last Admin: 11/04/16 21:56 Dose: 240 mg Enoxaparin Sodium (Lovenox -) 40 mg SQ DAILY [facility] Last Admin: 11/05/16 10:56 Dose: 40 mg Cefepime HCl 1 gm/ Dextrose 100 mls @ 200 mls/hr IVPB BID [facility] Last Admin: 11/05/16 14:10 Dose: 200 mls/hr Ipratropium [place] (Atrovent 0.02% Nebulizer -) 1 amp NEB Q6HPO [facility] Last Admin: 11/05/16 11:24 Dose: 1 amp Levothyroxine Sodium (Synthroid -) 25 mcg PO ACBK [facility] Last Admin: 11/05/16 06:20 Dose: 25 mcg Montelukast Sodium (Singulair -) 10 mg PO DAILY [facility] Last Admin: 11/04/16 09:56 Dose: 10 mg Nitroglycerin (Nitrostat -) 0.4 mg SL PRN PRN Non-Formulary Medication (Naloxegol Oxalate [Movantik]) 25 mg PO DAILY [facility] Nortriptyline HCl (Pamelor -) 50 mg PO HS [facility] Last Admin: 11/04/16 21:57 Dose: 50 mg Ondansetron HCl (Zofran Injection) 4 mg IVPB Q6H PRN PRN Reason: NAUSEA Oxycodone HCl (Roxicodone -) 5 mg PO Q4H PRN PRN Reason: PAIN Last Admin: 11/05/16 10:36 Dose: 5 mg Potassium Chloride (K-Dur -) 20 meq PO BID [facility] Last Admin: 11/05/16 10:56 Dose: 20 meq Quinapril HCl (Accupril -) 20 mg PO DAILY [facility] Last Admin: 11/05/16 10:30 Dose: Not Given Ranitidine HCl (Zantac -) 150 mg PO HS [facility] Last Admin: 11/04/16 21:57 Dose: 150 mg Senna (Senna -) 2 tab PO HS [facility] Last Admin: 11/04/16 21:57 Dose: 2 tab Sertraline HCl (Zoloft -) 100 mg PO DAILY [facility] Last Admin: 11/05/16 10:56 Dose: 100 mg Zolpidem Tartrate (Ambien -) 5 mg PO HS PRN PRN Reason: INSOMNIA - Objective Vital Signs: Vital Signs Temperature 98.2 F 11/05/16 06:00 Pulse Rate 84 11/05/16 06:00 Respiratory Rate 20 11/05/16 06:00 Blood Pressure 100/48 11/05/16 06:00 O2 Sat by Pulse Oximetry (%) 95 11/04/16 22:00 Constitutional: Yes: No Distress, Obese Cardiovascular: Yes: Regular Rate and Rhythm, S1, S2 Respiratory: Yes: Diminished Gastrointestinal: Yes: Normal Bowel Sounds, Soft. No: Tenderness Edema: Yes Labs: CBC, BMP 11/05/16 07:05 11/05/16 07:05 INR, PTT INR 1.13 (0.82-1.09) 11/02/16 15:00 Assessment/Plan + BC GPCCL x 1 bottle unclear significance Pneumonia S/P shoulder repair, humerus fracture Continue cefepime Repeat BC Add vancomycin pending final BC
--- NOTE | 2016-11-05 14:32 | PN ---
Progress Note, Physician History of Present Illness: Dyspnea improved, denies chest pain, afebrile. - Current Medication List Current Medications: Active Medications Acetaminophen (Tylenol -) 650 mg PO Q4H PRN PRN Reason: FEVER OR PAIN Last Admin: 11/05/16 10:37 Dose: 650 mg Albuterol Sulfate (Ventolin 0.083% Nebulizer Soln -) 1 amp NEB Q6H PRN PRN Reason: SHORT OF BREATH/WHEEZING Alprazolam (Xanax -) 2 mg PO DAILY PRN PRN Reason: ANXIETY Last Admin: 11/03/16 23:41 Dose: 2 mg Ascorbic Acid (Vitamin C -) 1,000 mg PO DAILY [facility] Last Admin: 11/05/16 10:56 Dose: 1,000 mg Aspirin (Asa -) 81 mg PO DAILY [facility] Last Admin: 11/05/16 10:56 Dose: 81 mg B12/Folic Ac/Intrin Fact/Iron/Vit C (Niferex-150 Forte -) 1 each PO DAILY [facility] Last Admin: 11/04/16 09:58 Dose: 1 each Cholecalciferol (Vitamin D3 -) 2,000 unit PO DAILY [facility] Last Admin: 11/05/16 10:55 Dose: 2,000 unit Cyclobenzaprine HCl (Flexeril -) 5 mg PO TID [facility] Last Admin: 11/05/16 06:20 Dose: 5 mg Diltiazem HCl (Cardizem Cd -) 240 mg PO HS [facility] Last Admin: 11/04/16 21:56 Dose: 240 mg Enoxaparin Sodium (Lovenox -) 40 mg SQ DAILY [facility] Last Admin: 11/05/16 10:56 Dose: 40 mg Cefepime HCl 1 gm/ Dextrose 100 mls @ 200 mls/hr IVPB BID [facility] Last Admin: 11/05/16 14:10 Dose: 200 mls/hr Vancomycin HCl (Vancomycin (Pre-Docked)) 250 mls @ 166.667 mls/hr IVPB BID@1030 ,2230 [facility] Ipratropium [place] (Atrovent 0.02% Nebulizer -) 1 amp NEB Q6HPO [facility] Last Admin: 11/05/16 11:24 Dose: 1 amp Levothyroxine Sodium (Synthroid -) 25 mcg PO ACBK [facility] Last Admin: 11/05/16 06:20 Dose: 25 mcg Montelukast Sodium (Singulair -) 10 mg PO HS [facility] Nitroglycerin (Nitrostat -) 0.4 mg SL PRN PRN Non-Formulary Medication (Naloxegol Oxalate [Movantik]) 25 mg PO DAILY [facility] Nortriptyline HCl (Pamelor -) 50 mg PO HS [facility] Last Admin: 11/04/16 21:57 Dose: 50 mg Ondansetron HCl (Zofran Injection) 4 mg IVPB Q6H PRN PRN Reason: NAUSEA Oxycodone HCl (Roxicodone -) 5 mg PO Q4H PRN PRN Reason: PAIN Last Admin: 11/05/16 10:36 Dose: 5 mg Potassium Chloride (K-Dur -) 20 meq PO BID [facility] Last Admin: 11/05/16 10:56 Dose: 20 meq Quinapril HCl (Accupril -) 20 mg PO DAILY [facility] Last Admin: 11/05/16 10:30 Dose: Not Given Ranitidine HCl (Zantac -) 150 mg PO [facility] Last Admin: 11/04/16 21:57 Dose: 150 mg Senna (Senna -) 2 tab PO HS [facility] Last Admin: 11/04/16 21:57 Dose: 2 tab Sertraline HCl (Zoloft -) 100 mg PO DAILY [facility] Last Admin: 11/05/16 10:56 Dose: 100 mg Zolpidem Tartrate (Ambien -) 5 mg PO HS PRN PRN Reason: INSOMNIA - Objective Vital Signs: Vital Signs Temperature 98.2 F 11/05/16 06:00 Pulse Rate 84 11/05/16 06:00 Respiratory Rate 20 11/05/16 06:00 Blood Pressure 100/48 11/05/16 06:00 O2 Sat by Pulse Oximetry (%) 95 11/04/16 22:00 Constitutional: Yes: No Distress, Calm Neck: Yes: Supple Cardiovascular: Yes: Regular Rate and Rhythm Respiratory: Yes: Regular, Diminished Gastrointestinal: Yes: Normal Bowel Sounds, Soft Edema: No Labs: CBC, BMP 11/05/16 07:05 11/05/16 07:05 INR, PTT INR 1.13 (0.82-1.09) 11/02/16 15:00 Problem List - Problems (1) Community acquired pneumonia Code(s): J18.9 - PNEUMONIA, UNSPECIFIED ORGANISM (2) Hypokalemia Code(s): E87.6 - HYPOKALEMIA (3) Mitral valve prolapse Code(s): I34.1 - NONRHEUMATIC MITRAL (VALVE) PROLAPSE (4) Anemia Code(s): D64.9 - ANEMIA, UNSPECIFIED Qualifiers: Anemia type: unspecified type Qualified Code(s): D64.9 - Anemia, unspecified (5) Humeral fracture Code(s): S42.309A - UNSP FRACTURE OF SHAFT OF HUMERUS, UNSP ARM, INIT Qualifiers: Encounter type: initial encounter Humerus Location: shaft Fracture type: closed Fracture morphology: oblique Fracture alignment: displaced Laterality: right Qualified Code(s): S42.331A - Displaced oblique fracture of shaft of humerus, right arm, initial encounter for closed fracture (6) HTN (hypertension) Code(s): I10 - ESSENTIAL (PRIMARY) HYPERTENSION Qualifiers: Hypertension type: essential hypertension Qualified Code(s): I10 - Essential (primary) hypertension (7) Hypothyroid Code(s): E03.9 - HYPOTHYROIDISM, UNSPECIFIED Qualifiers: Hypothyroidism type: unspecified Qualified Code(s): E03.9 - Hypothyroidism, unspecified Assessment/Plan 11/04/2016 Echo: Normal LV size and fxn, mod TR 1. Community acquired pneumonia 2. History of MVP 3. Recent right humeral fracture - post repair 4. HTN 5. Hypothyroidism 6. Hypokalemia 7. Anemia PLAN: 1. Cefepime/Vanco course per C&S 2. Bronchodilators, Singulair, O2 as needed. 3. Continue Cardizem CD 240 qhs, ASA 81 qd and Quinapril 20 qd 5. DVT and GI prophylaxis 6. OOB to chair
[2016-11-05] MEDS ORDERED: PT OWN MED DRAWER 7, Y5N ONE (14:35)
[2016-11-05] MEDS: MONTELUKAST NA 10 MG TABLET PO SCH ×2 (14:42→21:19)
--- NOTE | 2016-11-05 20:08 | CONSULT ---
Consult - text type - Consultation Consultation Note: The patient is a 76 year old female with a significant past medical history of Migraines, CAD, HTN, mvp, asthma, constipation, diverticulosis, gastritis, GERD , hiatal hernia, irritable bowel disease, peptic ulcer disease, Hypothyroidism, early glaucoma, cervical and lumbar radiculopathy, avascular necrosis of femoral head, who is sent in to the ED with SOB while walking and high blood pressure. Patient states she had surgery on October 13 for a fractured humerus of the right arm and had rt. shoulder replacement in 09/25. she was noted to have bibasilar consolidation acute vs chronic Patient denies any pain, or any other symptoms. blood cx --GPCCL awaiting final results - Past Medical History Anemia: Yes Asthma: Yes (NO RECENT ATTACK) Cardiac Disorders: Yes (,MITRAL VALVE PROLAPSE) GI Disorders: Yes (H/O COLON POLYPS, acid reflux) HTN: Yes Hypercholesterolemia: No Liver Disease: Yes (NON ALCOHOLIC FATTY LIVER) Thyroid Disease: Yes - Surgical History Abdominal Surgery: Yes (SX FOR OBSTRUCTIONS AND ADHESIONS) Appendectomy: Yes Cholecystectomy: Yes GI Surgery: Yes Rt. shoulder replacement--09/25 Rt. humerus surgery--10/13/16 - Psycho/Social/Smoking Cessation Hx Smoking History: Never smoked - Past Medical History Allergies/Adverse Reactions: Allergies Allergy/AdvReac Type Severity Reaction Status Date / Time metronidazole [From Flagyl] Allergy Intermediate Swelling Verified 11/02/16 14: 29 lactose AdvReac Verified 11/02/16 14:29 fresh fruit Allergy Vomiting Uncoded 11/02/16 14:29 Home Medications: Ambulatory Orders Acetaminophen [Tylenol] 325 mg PO PRN 11/02/16 Alprazolam [Xanax] 2 mg PO DAILY 11/02/16 Ascorbic Acid [C-1000] 1,000 mg PO DAILY 11/02/16 Aspirin [ASA -] 81 mg PO DAILY 11/02/16 Cholecalciferol (Vitamin D3) [Vitamin D3] 2,000 unit PO DAILY 11/02/16 Cyclobenzaprine HCl [Flexeril -] 5 mg PO TID 11/02/16 Dicyclomine HCl [Bentyl -] 10 mg PO ONCE 11/02/16 Diltiazem HCl [Diltiazem 24Hr Cd] 240 mg PO HS 11/02/16 Docusate Sodium [Dok] 100 mg PO ASDIR 11/02/16 Iron Ps Cmplx/Vit B12/FA [Ferrex 150 Forte Capsule] 1 each PO DAILY 11/02/16 Levofloxacin [Levaquin] 500 mg PO DAILY 11/02/16 Levothyroxine [Synthroid -] 25 mcg PO DAILY 11/02/16 Montelukast Na [Singulair -] 10 mg PO DAILY 11/02/16 Naloxegol Oxalate [Movantik] 25 mg PO DAILY 11/02/16 Nitroglycerin [Nitrostat] 0.4 mg SL PRN 11/02/16 Nortriptyline HCl [Pamelor -] 50 mg PO HS 11/02/16 Ondansetron [Zofran Odt -] 4 mg SL TID 11/02/16 Oxycodone HCl [Roxicodone -] 5 mg PO Q4H 11/02/16 Potassium Chloride 10 meq PO DAILY 11/02/16 Quinapril HCl [Accupril] 20 mg PO DAILY 11/02/16 Ranitidine [Zantac -] 150 mg PO HS 11/02/16 Sennosides [Senna] 2 tab PO HS 11/02/16 Sertraline HCl [Zoloft -] 100 mg PO DAILY 11/02/16 Sumatriptan Succinate [Imitrex -] 100 mg PO PRN 11/02/16 Zolpidem Tartrate [Ambien] 10 mg PO HS 11/02/16 Current Medications Acetaminophen (Tylenol -) 650 mg PO Q4H PRN PRN Reason: FEVER OR PAIN Last Admin: 11/05/16 10:37 Dose: 650 mg Albuterol Sulfate (Ventolin 0.083% Nebulizer Soln -) 1 amp NEB Q6H PRN PRN Reason: SHORT OF BREATH/WHEEZING Alprazolam (Xanax -) 2 mg PO DAILY PRN PRN Reason: ANXIETY Last Admin: 11/03/16 23:41 Dose: 2 mg Ascorbic Acid (Vitamin C -) 1,000 mg PO DAILY [facility] Last Admin: 11/05/16 10:56 Dose: 1,000 mg Aspirin (Asa -) 81 mg PO DAILY [facility] Last Admin: 11/05/16 10:56 Dose: 81 mg B12/Folic Ac/Intrin Fact/Iron/Vit C (Niferex-150 Forte -) 1 each PO DAILY [facility] Last Admin: 11/05/16 10:55 Dose: 1 each Cholecalciferol (Vitamin D3 -) 2,000 unit PO DAILY [facility] Last Admin: 11/05/16 10:55 Dose: 2,000 unit Cyclobenzaprine HCl (Flexeril -) 5 mg PO TID [facility] Last Admin: 11/05/16 14:36 Dose: 5 mg Diltiazem HCl (Cardizem Cd -) 240 mg PO HS [facility] Last Admin: 11/04/16 21:56 Dose: 240 mg Enoxaparin Sodium (Lovenox -) 40 mg SQ DAILY [facility] Last Admin: 11/05/16 10:56 Dose: 40 mg Cefepime HCl 1 gm/ Dextrose 100 mls @ 200 mls/hr IVPB BID [facility] Last Admin: 11/05/16 14:10 Dose: 200 mls/hr Vancomycin HCl (Vancomycin (Pre-Docked)) 250 mls @ 166.667 mls/hr IVPB BID@1030 ,2230 [facility] Ipratropium [place] (Atrovent 0.02% Nebulizer -) 1 amp NEB Q6HPO [facility] Last Admin: 11/05/16 11:24 Dose: 1 amp Levothyroxine Sodium (Synthroid -) 25 mcg PO ACBK [facility] Last Admin: 11/05/16 06:20 Dose: 25 mcg Montelukast Sodium (Singulair -) 10 mg PO HS [facility] Nitroglycerin (Nitrostat -) 0.4 mg SL PRN PRN Non-Formulary Medication (Naloxegol Oxalate [Movantik]) 25 mg PO DAILY [facility] Nortriptyline HCl (Pamelor -) 50 mg PO HS [facility] Last Admin: 11/04/16 21:57 Dose: 50 mg Ondansetron HCl (Zofran Injection) 4 mg IVPB Q6H PRN PRN Reason: NAUSEA Oxycodone HCl (Roxicodone -) 5 mg PO Q4H PRN PRN Reason: PAIN Last Admin: 11/05/16 10:36 Dose: 5 mg Potassium Chloride (K-Dur -) 20 meq PO BID [facility] Last Admin: 11/05/16 10:56 Dose: 20 meq Quinapril HCl (Accupril -) 20 mg PO DAILY [facility] Last Admin: 11/05/16 15:08 Dose: 20 mg Ranitidine HCl (Zantac -) 150 mg PO HS [facility] Last Admin: 11/04/16 21:57 Dose: 150 mg Senna (Senna -) 2 tab PO HS [facility] Last Admin: 11/04/16 21:57 Dose: 2 tab Sertraline HCl (Zoloft -) 100 mg PO DAILY [facility] Last Admin: 11/05/16 10:56 Dose: 100 mg Zolpidem Tartrate (Ambien -) 5 mg PO HS PRN PRN Reason: INSOMNIA Last Vital Signs Temp Pulse Resp BP Pulse Ox 98.3 F 107 H 18 136/71 93 L 11/02/16 14:30 11/02/16 15:00 11/02/16 14:30 11/02/16 15:00 11/02/16 14:30 HEENT: AJAY, EOM Intact Cor: RSR, No murmurs, No gallops Lungs: Clear to P&A Abd: Soft, Normal bowel sounds, No organomegaly. Rt. abdominal wall pump Ext:RUE in sling Skin: No rashes, Integument intact Abnormal Lab Results 11/05/16 11/05/16 07:05 07:05 WBC 3.2 L Hgb 10.2 L Hct 32.1 L MCHC 31.9 L RDW 20.3 H Monocytes % 11.7 H Eosinophils % 6.0 H Calcium 8.2 L A/P 76 year old female with a significant past medical history of Migraines, CAD, HTN, mvp, asthma, constipation, diverticulosis, gastritis, GERD, hiatal hernia, irritable bowel disease, peptic ulcer disease, Hypothyroidism, early glaucoma, cervical and lumbar radiculopathy, avascular necrosis of femoral head, who is sent in to the ED with SOB while walking and high blood pressure. Patient states she had surgery on October 13 for a fractured humerus of the right arm at [facility]. She had rt. shoulder replacement 09/25. she was noted to have bibasilar consolidation acute vs chronic blood cx --GPCCL awaiting final results Leukopenia: new onset --leukocytosis in 09/25. Mild increase eosinophils/ monocytes Leukopenia noted since 11/02/15 Suspect due to ongoing bacteremia - GPCCL/ infection --? pneumonia. Awaiting final sensitivities Very low B12 levels noted in 2014 -- repeat B12 levels and red cell folate levels TSH --nl check u/s liver/spleen --? fatty liver playing a role h/o iron deficiency --noted in 01/2016--ferritin 4 -- noncompliant with ferrex/ vit. c at home due to constipation repeat iron studies anemia--anemia of chronic disease vs iron deficiency repeat ESR/CRP/iron studies
[2016-11-05] MEDS: NORTRIPTYLINE HCL 25 MG CAPSULE PO SCH (21:19)
[2016-11-05] MEDS: RANITIDINE HCL 150 MG TABLET (FP) PO SCH (21:19)
[2016-11-05] MEDS: SENNOSIDES 8.6MG TABLET (FP) PO SCH (21:20)
[2016-11-05] MEDS: VANCOMYCIN 1 GRAM (PRE-DOCKED) 250 ML IVPB SCH (22:43)
[2016-11-05] MEDS: ZOLPIDEM TARTRATE 5 MG TABLET PO PRN (22:43)
[2016-11-06] MEDS: CYCLOBENZAPRINE HCL 10 MG TABLET (FP) PO SCH ×3 (06:16→22:38)
[2016-11-06] MEDS: LEVOTHYROXINE NA 25 MCG TABLET (FP) PO SCH (06:16)
[2016-11-06 06:29] LABS: BASOPHIL 0.2 % (0-2.0); EOSINOPHIL 5.6 % (0-4.5); MCHC 31.7 g/dl (32.0-36.0); MEAN CELL VOLUME 85.1 fl (80-96); NEUTROPHILS 46.6 % (42.8-82.8); PLATELET COUNT 235 K/MM3 (134-434); RDW 20.8 % (11.6-15.6); WHITE BLOOD COUNT 2.7 K/mm3 (4.0-10.0)
[2016-11-06 06:57] LABS: CALCIUM 8.2 mg/dL (8.5-10.1)
[2016-11-06 06:59] LABS: CREATININE 0.5 mg/dL (0.55-1.02)
[2016-11-06] MEDS: IPRATROPIUM BR 0.02% 0.5 MG/2.5 ML VIAL.NEB. NEB SCH ×4 (07:07→23:01)
[2016-11-06] MEDS ORDERED: PT OWN MED DRAWER 7, Y5N ONE ×4 (09:36→22:42)
[2016-11-06] MEDS: QUINAPRIL HCL 20 MG TABLET (FP) PO SCH (09:43)
[2016-11-06] MEDS: ASPIRIN 81 MG CHEWABLE TABLETS PO SCH (09:44)
[2016-11-06] MEDS: CEFEPIME 1 GM in DEXTROSE 5%-WATER - 100 ML IVPB SCH ×2 (09:45→22:38)
[2016-11-06] MEDS: ASCORBIC ACID 500 MG TABLET (FP) PO SCH (09:45)
[2016-11-06] MEDS: ENOXAPARIN NA (PORCINE) 40 MG/0.4 ML DISP.SYRIN SQ SCH (09:45)
[2016-11-06] MEDS: POTASSIUM CHLORIDE TABS 20 MEQ TABLET.ER (FP) PO SCH ×2 (09:45→22:38)
[2016-11-06] MEDS: SERTRALINE HCL 50 MG TABLET (FP) PO SCH (09:45)
[2016-11-06] MEDS: CHOLECALCIFEROL (VITAMIN D3) 1,000 UNIT TABLET (FP) PO SCH (09:45)
[2016-11-06] MEDS: FE POLYSAC/CYANOCOBAL/FA COMBO CAPSULE PO SCH (09:46)
[2016-11-06 10:55] LABS: FERRITIN 39.158 ng/ml (6.9-282.5)
[2016-11-06] MEDS: VANCOMYCIN 1 GRAM (PRE-DOCKED) 250 ML IVPB SCH (11:35)
--- NOTE | 2016-11-06 11:41 | PN ---
Progress Note, Physician History of Present Illness: Dyspnea improved, denies chest pain, afebrile. - Current Medication List Current Medications: Active Medications Acetaminophen (Tylenol -) 650 mg PO Q4H PRN PRN Reason: FEVER OR PAIN Last Admin: 11/05/16 20:29 Dose: 650 mg Albuterol Sulfate (Ventolin 0.083% Nebulizer Soln -) 1 amp NEB Q6H PRN PRN Reason: SHORT OF BREATH/WHEEZING Last Admin: 11/06/16 09:35 Dose: 1 amp Alprazolam (Xanax -) 2 mg PO DAILY PRN PRN Reason: ANXIETY Last Admin: 11/03/16 23:41 Dose: 2 mg Ascorbic Acid (Vitamin C -) 1,000 mg PO DAILY [facility] Last Admin: 11/06/16 09:45 Dose: 1,000 mg Aspirin (Asa -) 81 mg PO DAILY [facility] Last Admin: 11/06/16 09:44 Dose: 81 mg B12/Folic Ac/Intrin Fact/Iron/Vit C (Niferex-150 Forte -) 1 each PO DAILY [facility] Last Admin: 11/06/16 09:46 Dose: 1 each Cholecalciferol (Vitamin D3 -) 2,000 unit PO DAILY [facility] Last Admin: 11/06/16 09:45 Dose: 2,000 unit Cyanocobalamin (Vitamin B12 Injection -) 1,000 mcg IM DAILY [facility] Cyclobenzaprine HCl (Flexeril -) 5 mg PO TID [facility] Last Admin: 11/06/16 06:16 Dose: 5 mg Diltiazem HCl (Cardizem Cd -) 240 mg PO HS [facility] Last Admin: 11/05/16 21:19 Dose: 240 mg Enoxaparin Sodium (Lovenox -) 40 mg SQ DAILY [facility] Last Admin: 11/06/16 09:45 Dose: 40 mg Cefepime HCl 1 gm/ Dextrose 100 mls @ 200 mls/hr IVPB BID [facility] Last Admin: 11/06/16 09:45 Dose: 200 mls/hr Vancomycin HCl (Vancomycin (Pre-Docked)) 250 mls @ 166.667 mls/hr IVPB BID@1030 ,2230 [facility] Last Admin: 11/06/16 11:35 Dose: 166.667 mls/hr Ipratropium [place] (Atrovent 0.02% Nebulizer -) 1 amp NEB Q6HPO [facility] Last Admin: 11/06/16 07:07 Dose: 1 amp Levothyroxine Sodium (Synthroid -) 25 mcg PO ACBK [facility] Last Admin: 11/06/16 06:16 Dose: 25 mcg Montelukast Sodium (Singulair -) 10 mg PO HS [facility] Last Admin: 11/05/16 21:19 Dose: 10 mg Nitroglycerin (Nitrostat -) 0.4 mg SL PRN PRN Non-Formulary Medication (Naloxegol Oxalate [Movantik]) 25 mg PO DAILY [facility] Nortriptyline HCl (Pamelor -) [address] [facility] Last Admin: 11/05/16 21:19 Dose: 50 mg Ondansetron HCl (Zofran Injection) 4 mg IVPB Q6H PRN PRN Reason: NAUSEA Oxycodone HCl (Roxicodone -) 5 mg PO Q4H PRN PRN Reason: PAIN Last Admin: 11/05/16 20:25 Dose: 5 mg Potassium Chloride (K-Dur -) 20 meq PO BID [facility] Last Admin: 11/06/16 09:45 Dose: 20 meq Quinapril HCl (Accupril -) 20 mg PO DAILY [facility] Last Admin: 11/06/16 09:43 Dose: 20 mg Ranitidine HCl (Zantac -) [address] [facility] Last Admin: 11/05/16 21:19 Dose: 150 mg Senna (Senna -) [address] [facility] Last Admin: 11/05/16 21:20 Dose: Not Given Sertraline HCl (Zoloft -) 100 mg PO DAILY [facility] Last Admin: 11/06/16 09:45 Dose: 100 mg Zolpidem Tartrate (Ambien -) 5 mg PO HS PRN PRN Reason: INSOMNIA Last Admin: 11/05/16 22:43 Dose: 5 mg - Objective Vital Signs: Vital Signs Temperature 98.6 F 11/06/16 06:00 Pulse Rate 92 H 11/06/16 06:00 Respiratory Rate 20 11/06/16 06:00 Blood Pressure 102/56 11/06/16 06:00 O2 Sat by Pulse Oximetry (%) 94 L 11/05/16 22:00 Constitutional: Yes: No Distress, Calm Neck: Yes: Supple Cardiovascular: Yes: Regular Rate and Rhythm Respiratory: Yes: Regular, Diminished Gastrointestinal: Yes: Normal Bowel Sounds, Soft Edema: No Labs: CBC, BMP 11/06/16 05:15 11/06/16 05:15 INR, PTT INR 1.13 (0.82-1.09) 11/02/16 15:00 Problem List - Problems (1) Community acquired pneumonia Code(s): J18.9 - PNEUMONIA, UNSPECIFIED ORGANISM (2) Mitral valve prolapse Code(s): I34.1 - NONRHEUMATIC MITRAL (VALVE) PROLAPSE (3) Anemia Code(s): D64.9 - ANEMIA, UNSPECIFIED Qualifiers: Anemia type: unspecified type Qualified Code(s): D64.9 - Anemia, unspecified (4) Humeral fracture Code(s): S42.309A - UNSP FRACTURE OF SHAFT OF HUMERUS, UNSP ARM, INIT Qualifiers: Encounter type: initial encounter Humerus Location: shaft Fracture type: closed Fracture morphology: oblique Fracture alignment: displaced Laterality: right Qualified Code(s): S42.331A - Displaced oblique fracture of shaft of humerus, right arm, initial encounter for closed fracture (5) HTN (hypertension) Code(s): I10 - ESSENTIAL (PRIMARY) HYPERTENSION Qualifiers: Hypertension type: essential hypertension Qualified Code(s): I10 - Essential (primary) hypertension (6) Hypothyroid Code(s): E03.9 - HYPOTHYROIDISM, UNSPECIFIED Qualifiers: Hypothyroidism type: unspecified Qualified Code(s): E03.9 - Hypothyroidism, unspecified Assessment/Plan 11/04/2016 Echo: Normal LV size and fxn, mod TR 1. Community acquired pneumonia 2. History of MVP 3. Recent right humeral fracture - post repair 4. HTN 5. Hypothyroidism 6. Hypokalemia resolved 7. Anemia, leukopenia due to bacteremia PLAN: 1. Cefepime/Vanco course per C&S 2. Bronchodilators, Singulair, O2 as needed. 3. Continue Cardizem CD 240 qhs, ASA 81 qd and Quinapril 20 qd 4. DVT and GI prophylaxis 5. OOB to chair
[2016-11-06] MEDS: oxyCODONE HCL 5 MG TABLET PO PRN ×2 (12:36→22:39)
[2016-11-06] MEDS: ACETAMINOPHEN 325 MG TABLET (FP) PO PRN (12:36)
[2016-11-06] MEDS: CYANOCOBALAMIN (VITAMIN B-12) 1000 MCG/1 ML VIAL IM SCH (14:24)
--- NOTE | 2016-11-06 15:10 | PN ---
Progress Note, Physician History of Present Illness: Awake in bed C/O generalized weakness Occasional cough No c/o chest pain/ dyspnea No c/o fever/ chills Blood c/s one bottle [facility] - Current Medication List Current Medications: Active Medications Acetaminophen (Tylenol -) 650 mg PO Q4H PRN PRN Reason: FEVER OR PAIN Last Admin: 11/06/16 12:36 Dose: 650 mg Albuterol Sulfate (Ventolin 0.083% Nebulizer Soln -) 1 amp NEB Q6H PRN PRN Reason: SHORT OF BREATH/WHEEZING Last Admin: 11/06/16 09:35 Dose: 1 amp Alprazolam (Xanax -) 2 mg PO DAILY PRN PRN Reason: ANXIETY Last Admin: 11/03/16 23:41 Dose: 2 mg Ascorbic Acid (Vitamin C -) 1,000 mg PO DAILY [facility] Last Admin: 11/06/16 09:45 Dose: 1,000 mg Aspirin (Asa -) 81 mg PO DAILY [facility] Last Admin: 11/06/16 09:44 Dose: 81 mg B12/Folic Ac/Intrin Fact/Iron/Vit C (Niferex-150 Forte -) 1 each PO DAILY [facility] Last Admin: 11/06/16 09:46 Dose: 1 each Cholecalciferol (Vitamin D3 -) 2,000 unit PO DAILY [facility] Last Admin: 11/06/16 09:45 Dose: 2,000 unit Cyanocobalamin (Vitamin B12 Injection -) 1,000 mcg IM DAILY [facility] Last Admin: 11/06/16 14:24 Dose: 1,000 mcg Cyclobenzaprine HCl (Flexeril -) 5 mg PO TID [facility] Last Admin: 11/06/16 14:24 Dose: 5 mg Diltiazem HCl (Cardizem Cd -) 240 mg PO HS [facility] Last Admin: 11/05/16 21:19 Dose: 240 mg Enoxaparin Sodium (Lovenox -) 40 mg SQ DAILY [facility] Last Admin: 11/06/16 09:45 Dose: 40 mg Cefepime HCl 1 gm/ Dextrose 100 mls @ 200 mls/hr IVPB BID [facility] Last Admin: 11/06/16 09:45 Dose: 200 mls/hr Ipratropium [place] (Atrovent 0.02% Nebulizer -) 1 amp NEB Q6HPO [facility] Last Admin: 11/06/16 11:35 Dose: 1 amp Levothyroxine Sodium (Synthroid -) 25 mcg PO ACBK [facility] Last Admin: 11/06/16 06:16 Dose: 25 mcg Montelukast Sodium (Singulair -) 10 mg PO [facility] Last Admin: 11/05/16 21:19 Dose: 10 mg Nitroglycerin (Nitrostat -) 0.4 mg SL PRN PRN Non-Formulary Medication (Naloxegol Oxalate [Movantik]) 25 mg PO DAILY [facility] Nortriptyline HCl (Pamelor -) 50 mg PO [facility] Last Admin: 11/05/16 21:19 Dose: 50 mg Ondansetron HCl (Zofran Injection) 4 mg IVPB Q6H PRN PRN Reason: NAUSEA Oxycodone HCl (Roxicodone -) 5 mg PO Q4H PRN PRN Reason: PAIN Last Admin: 11/06/16 12:36 Dose: 5 mg Potassium Chloride (K-Dur -) 20 meq PO BID [facility] Last Admin: 11/06/16 09:45 Dose: 20 meq Quinapril HCl (Accupril -) 20 mg PO DAILY [facility] Last Admin: 11/06/16 09:43 Dose: 20 mg Ranitidine HCl (Zantac -) 150 mg PO [facility] Last Admin: 11/05/16 21:19 Dose: 150 mg Senna (Senna -) 2 tab PO [facility] Last Admin: 11/05/16 21:20 Dose: Not Given Sertraline HCl (Zoloft -) 100 mg PO DAILY [facility] Last Admin: 11/06/16 09:45 Dose: 100 mg Zolpidem Tartrate (Ambien -) 5 mg PO HS PRN PRN Reason: INSOMNIA Last Admin: 11/05/16 22:43 Dose: 5 mg - Objective Vital Signs: Vital Signs Temperature 98.9 F 11/06/16 13:33 Pulse Rate 95 H 11/06/16 14:30 Respiratory Rate 17 11/06/16 13:33 Blood Pressure 113/57 11/06/16 14:30 O2 Sat by Pulse Oximetry (%) 94 L 11/05/16 22:00 Constitutional: Yes: No Distress, Obese Eyes: Yes: Conjunctiva Clear Cardiovascular: Yes: Regular Rate and Rhythm, S1, S2 Respiratory: Yes: Diminished Gastrointestinal: Yes: Normal Bowel Sounds, Soft, Abdomen, Obese. No: Tenderness Edema: Yes Labs: CBC, BMP 11/06/16 05:15 11/06/16 05:15 INR, PTT INR 1.13 (0.82-1.09) 11/02/16 15:00 Assessment/Plan + BC GPCCL x 1 bottle - SCN = contaminant S/P shoulder repair, humerus fracture Pneumonia Continue cefepime for pneumonia No treatment for blood isolate
--- NOTE | 2016-11-06 17:53 | PN ---
Progress Note (short form) - Note Progress Note: Patiene seen and examined Anxious to go home Last Vital Signs Temp Pulse Resp BP Pulse Ox 98.9 F 95 H 17 113/57 93 L 11/06/16 13:33 11/06/16 14:30 11/06/16 13:33 11/06/16 14:30 11/06/16 09:00 HEENT: AJAY, EOM Intact Oropharynx: No thrush, No mucositis Cor: RSR, No murmurs, No gallops Lungs: Clear to P&A Abd: Soft, Normal bowel sounds, No organomegaly Ext:RUE in sling Abnormal Lab Results 11/06/16 11/06/16 11/06/16 05:15 05:15 05:15 WBC 2.7 L Hgb 10.3 L MCHC 31.7 L RDW 20.8 H Monocytes % 16.9 H Eosinophils % 5.6 H ESR 35 H Anion Gap 7 L Creatinine 0.5 L Calcium 8.2 L Current Medications Acetaminophen (Tylenol -) 650 mg PO Q4H PRN PRN Reason: FEVER OR PAIN Last Admin: 11/06/16 12:36 Dose: 650 mg Albuterol Sulfate (Ventolin 0.083% Nebulizer Soln -) 1 amp NEB Q6H PRN PRN Reason: SHORT OF BREATH/WHEEZING Last Admin: 11/06/16 09:35 Dose: 1 amp Alprazolam (Xanax -) 2 mg PO DAILY PRN PRN Reason: ANXIETY Last Admin: 11/03/16 23:41 Dose: 2 mg Ascorbic Acid (Vitamin C -) 1,000 mg PO DAILY [facility] Last Admin: 11/06/16 09:45 Dose: 1,000 mg Aspirin (Asa -) 81 mg PO DAILY [facility] Last Admin: 11/06/16 09:44 Dose: 81 mg B12/Folic Ac/Intrin Fact/Iron/Vit C (Niferex-150 Forte -) 1 each PO DAILY [facility] Last Admin: 11/06/16 09:46 Dose: 1 each Cholecalciferol (Vitamin D3 -) 2,000 unit PO DAILY [facility] Last Admin: 11/06/16 09:45 Dose: 2,000 unit Cyanocobalamin (Vitamin B12 Injection -) 1,000 mcg IM DAILY [facility] Last Admin: 11/06/16 14:24 Dose: 1,000 mcg Cyclobenzaprine HCl (Flexeril -) 5 mg PO TID [facility] Last Admin: 11/06/16 14:24 Dose: 5 mg Diltiazem HCl (Cardizem Cd -) 240 mg PO [facility] Last Admin: 11/05/16 21:19 Dose: 240 mg Enoxaparin Sodium (Lovenox -) 40 mg SQ DAILY [facility] Last Admin: 11/06/16 09:45 Dose: 40 mg Cefepime HCl 1 gm/ Dextrose 100 mls @ 200 mls/hr IVPB BID [facility] Last Admin: 11/06/16 09:45 Dose: 200 mls/hr Ipratropium [place] (Atrovent 0.02% Nebulizer -) 1 amp NEB Q6HPO [facility] Last Admin: 11/06/16 11:35 Dose: 1 amp Levothyroxine Sodium (Synthroid -) 25 mcg PO ACBK [facility] Last Admin: 11/06/16 06:16 Dose: 25 mcg Montelukast Sodium (Singulair -) 10 mg PO [facility] Last Admin: 11/05/16 21:19 Dose: 10 mg Nitroglycerin (Nitrostat -) 0.4 mg SL PRN PRN Non-Formulary Medication (Naloxegol Oxalate [Movantik]) 25 mg PO DAILY [facility] Nortriptyline HCl (Pamelor -) 50 mg PO [facility] Last Admin: 11/05/16 21:19 Dose: 50 mg Ondansetron HCl (Zofran Injection) 4 mg IVPB Q6H PRN PRN Reason: NAUSEA Oxycodone HCl (Roxicodone -) 5 mg PO Q4H PRN PRN Reason: PAIN Last Admin: 11/06/16 12:36 Dose: 5 mg Potassium Chloride (K-Dur -) 20 meq PO BID [facility] Last Admin: 11/06/16 09:45 Dose: 20 meq Quinapril HCl (Accupril -) 20 mg PO DAILY [facility] Last Admin: 11/06/16 09:43 Dose: 20 mg Ranitidine HCl (Zantac -) 150 mg PO [facility] Last Admin: 11/05/16 21:19 Dose: 150 mg Senna (Senna -) 2 tab PO [facility] Last Admin: 11/05/16 21:20 Dose: Not Given Sertraline HCl (Zoloft -) 100 mg PO DAILY [facility] Last Admin: 11/06/16 09:45 Dose: 100 mg Zolpidem Tartrate (Ambien -) 5 mg PO HS PRN PRN Reason: INSOMNIA Last Admin: 11/05/16 22:43 Dose: 5 mg A/P 76 year old female with a significant past medical history of Migraines, CAD, HTN, mvp, asthma, constipation, diverticulosis, gastritis, GERD, hiatal hernia, irritable bowel disease, peptic ulcer disease, Hypothyroidism, early glaucoma, cervical and lumbar radiculopathy, avascular necrosis of femoral head, who is sent in to the ED with SOB while walking and high blood pressure. Patient states she had surgery on October 13 for a fractured humerus of the right arm at [facility]. She had rt. shoulder replacement 09/25. she was noted to have bibasilar consolidation acute vs chronic Leukopenia: new onset --leukocytosis in 09/25. Mild increase eosinophils/ monocytes Leukopenia noted since 11/02/15 blood cx--staph coag. neg. ? contaminant suspect leukopenia due to meds ? flow/ FISH pending started B12 injections will discuss with primary team h/o iron deficiency --noted in 01/2016--ferritin 4 -- noncompliant with ferrex/ vit. c at home due to constipation repeat iron studies anemia--anemia of chronic disease vs iron deficiency repeat ESR/CRP/iron studies will discuss with primary team regarding prior gi w/u
--- NOTE | 2016-11-06 19:14 | PN ---
Progress Note, Physician Chief Complaint: some coughing but feels better overall;worried about low white count. History of Present Illness: patient admitted for tachycardia found to have pneumonia. On intravenous antibiotics Was noted over several days to have a falling white count possibly secondary to previous antibiotic. One blood culture from admission revealed staph coagulase negative;so far repeat cultures negative Infectious disease doctors decided to switch her back to her previous antibiotic Followup lab ordered - Current Medication List Current Medications: Active Medications Acetaminophen (Tylenol -) 650 mg PO Q4H PRN PRN Reason: FEVER OR PAIN Last Admin: 11/06/16 12:36 Dose: 650 mg Albuterol Sulfate (Ventolin 0.083% Nebulizer Soln -) 1 amp NEB Q6H PRN PRN Reason: SHORT OF BREATH/WHEEZING Last Admin: 11/06/16 09:35 Dose: 1 amp Alprazolam (Xanax -) 2 mg PO DAILY PRN PRN Reason: ANXIETY Last Admin: 11/03/16 23:41 Dose: 2 mg Ascorbic Acid (Vitamin C -) 1,000 mg PO DAILY [facility] Last Admin: 11/06/16 09:45 Dose: 1,000 mg Aspirin (Asa -) 81 mg PO DAILY [facility] Last Admin: 11/06/16 09:44 Dose: 81 mg B12/Folic Ac/Intrin Fact/Iron/Vit C (Niferex-150 Forte -) 1 each PO DAILY [facility] Last Admin: 11/06/16 09:46 Dose: 1 each Cholecalciferol (Vitamin D3 -) 2,000 unit PO DAILY [facility] Last Admin: 11/06/16 09:45 Dose: 2,000 unit Cyanocobalamin (Vitamin B12 Injection -) 1,000 mcg IM DAILY [facility] Last Admin: 11/06/16 14:24 Dose: 1,000 mcg Cyclobenzaprine HCl (Flexeril -) 5 mg PO TID [facility] Last Admin: 11/06/16 14:24 Dose: 5 mg Diltiazem HCl (Cardizem Cd -) 240 mg PO HS [facility] Last Admin: 11/05/16 21:19 Dose: 240 mg Enoxaparin Sodium (Lovenox -) 40 mg SQ DAILY [facility] Last Admin: 11/06/16 09:45 Dose: 40 mg Cefepime HCl 1 gm/ Dextrose 100 mls @ 200 mls/hr IVPB BID [facility] Last Admin: 11/06/16 09:45 Dose: 200 mls/hr Ipratropium [place] (Atrovent 0.02% Nebulizer -) 1 amp NEB Q6HPO [facility] Last Admin: 11/06/16 18:48 Dose: 1 amp Levothyroxine Sodium (Synthroid -) 25 mcg PO ACBK [facility] Last Admin: 11/06/16 06:16 Dose: 25 mcg Montelukast Sodium (Singulair -) 10 mg PO HS [facility] Last Admin: 11/05/16 21:19 Dose: 10 mg Nitroglycerin (Nitrostat -) 0.4 mg SL PRN PRN Non-Formulary Medication (Naloxegol Oxalate [Movantik]) 25 mg PO DAILY [facility] Nortriptyline HCl (Pamelor -) 50 mg PO [facility] Last Admin: 11/05/16 21:19 Dose: 50 mg Ondansetron HCl (Zofran Injection) 4 mg IVPB Q6H PRN PRN Reason: NAUSEA Oxycodone HCl (Roxicodone -) 5 mg PO Q4H PRN PRN Reason: PAIN Last Admin: 11/06/16 12:36 Dose: 5 mg Potassium Chloride (K-Dur -) 20 meq PO BID [facility] Last Admin: 11/06/16 09:45 Dose: 20 meq Quinapril HCl (Accupril -) 20 mg PO DAILY [facility] Last Admin: 11/06/16 09:43 Dose: 20 mg Ranitidine HCl (Zantac -) 150 mg PO HS [facility] Last Admin: 11/05/16 21:19 Dose: 150 mg Senna (Senna -) 2 tab PO [facility] Last Admin: 11/05/16 21:20 Dose: Not Given Sertraline HCl (Zoloft -) 100 mg PO DAILY [facility] Last Admin: 11/06/16 09:45 Dose: 100 mg Zolpidem Tartrate (Ambien -) 5 mg PO HS PRN PRN Reason: INSOMNIA Last Admin: 11/05/16 22:43 Dose: 5 mg - Objective Vital Signs: Vital Signs Temperature 98.9 F 11/06/16 13:33 Pulse Rate 95 H 11/06/16 14:30 Respiratory Rate 17 11/06/16 13:33 Blood Pressure 113/57 11/06/16 14:30 O2 Sat by Pulse Oximetry (%) 93 L 11/06/16 09:00 Constitutional: Yes: Calm, Pallor Cardiovascular: Yes: Regular Rate and Rhythm Respiratory: Yes: Rales, Rhonchi (this morning she had rales and rhonchi at both bases) Gastrointestinal: Yes: Soft. No: Tenderness (constipated MiraLax ordered) Genitourinary: No: Garcia Present Edema: No Neurological: Yes: Alert, Oriented Labs: CBC, BMP 11/06/16 05:15 11/06/16 05:15 INR, PTT INR 1.13 (0.82-1.09) 11/02/16 15:00 Problem List - Problems (1) Community acquired pneumonia Assessment/Plan: back on IV antibiotics; vancomycin DC'd Code(s): J18.9 - PNEUMONIA, UNSPECIFIED ORGANISM (2) Humeral fracture Assessment/Plan: pain Rx given when necessary Code(s): S42.309A - UNSP FRACTURE OF SHAFT OF HUMERUS, UNSP ARM, INIT Qualifiers: Encounter type: initial encounter Humerus Location: shaft Fracture type: closed Fracture morphology: oblique Fracture alignment: displaced Laterality: right Qualified Code(s): S42.331A - Displaced oblique fracture of shaft of humerus, right arm, initial encounter for closed fracture (3) Asthma Assessment/Plan: more rhonchi and rales today is pneumonia is breaking up No wheezes heard Aerosol when necessary and chest PT ordered Code(s): J45.909 - UNSPECIFIED ASTHMA, UNCOMPLICATED (4) Hypothyroid Assessment/Plan: on Rx Thyroid lab reordered Code(s): E03.9 - HYPOTHYROIDISM, UNSPECIFIED Qualifiers: Hypothyroidism type: unspecified Qualified Code(s): E03.9 - Hypothyroidism, unspecified (5) Pain Assessment/Plan: on appropriate medicine when necessary Code(s): R52 - PAIN, UNSPECIFIED (6) Hypokalemia Assessment/Plan: back to normal at his potassium orally was increased Code(s): E87.6 - HYPOKALEMIA (7) Leukopenia Assessment/Plan: possibly related to antibiotic therapy Will follow Doubt due to overwhelming sepsis B12 ordered for low B12 level of thousand MCG daily IM Code(s): D72.819 - DECREASED WHITE BLOOD CELL COUNT, UNSPECIFIED (8) B12 deficiency Assessment/Plan: Rx ordered Code(s): E53.8 - DEFICIENCY OF OTHER SPECIFIED B GROUP VITAMINS
[2016-11-06] MEDS: NORTRIPTYLINE HCL 25 MG CAPSULE PO SCH (22:38)
[2016-11-06] MEDS: SENNOSIDES 8.6MG TABLET (FP) PO SCH (22:38)
[2016-11-06] MEDS: MONTELUKAST NA 10 MG TABLET PO SCH (22:39)
[2016-11-06] MEDS: RANITIDINE HCL 150 MG TABLET (FP) PO SCH (22:39)
[2016-11-06] MEDS: ZOLPIDEM TARTRATE 5 MG TABLET PO PRN (22:39)
[2016-11-07] MEDS: CYCLOBENZAPRINE HCL 10 MG TABLET (FP) PO SCH ×3 (06:01→21:30)
[2016-11-07] MEDS: oxyCODONE HCL 5 MG TABLET PO PRN ×3 (06:01→22:00)
[2016-11-07] MEDS: LEVOTHYROXINE NA 25 MCG TABLET (FP) PO SCH (06:02)
[2016-11-07] MEDS: IPRATROPIUM BR 0.02% 0.5 MG/2.5 ML VIAL.NEB. NEB SCH ×4 (06:10→23:08)
[2016-11-07 08:18] LABS: BASOPHIL 0.6 % (0-2.0); EOSINOPHIL 8.1 % (0-4.5); MCH 27.6 pg (25.7-33.7); MCHC 32.2 g/dl (32.0-36.0); MEAN CELL VOLUME 85.7 fl (80-96); NEUTROPHILS 32.7 % (42.8-82.8); PLATELET COUNT 202 K/MM3 (134-434); WHITE BLOOD COUNT 2.7 K/mm3 (4.0-10.0)
[2016-11-07] MEDS ORDERED: PT OWN MED DRAWER 7, Y5N ONE ×2 (09:42→20:35)
[2016-11-07] MEDS: ASCORBIC ACID 500 MG TABLET (FP) PO SCH (09:46)
[2016-11-07] MEDS: CHOLECALCIFEROL (VITAMIN D3) 1,000 UNIT TABLET (FP) PO SCH (09:46)
[2016-11-07] MEDS: CEFEPIME 1 GM in DEXTROSE 5%-WATER - 100 ML IVPB SCH ×2 (09:47→21:32)
[2016-11-07] MEDS: ENOXAPARIN NA (PORCINE) 40 MG/0.4 ML DISP.SYRIN SQ SCH (09:47)
[2016-11-07] MEDS: ASPIRIN 81 MG CHEWABLE TABLETS PO SCH (09:47)
[2016-11-07] MEDS: SERTRALINE HCL 50 MG TABLET (FP) PO SCH (09:47)
[2016-11-07] MEDS: QUINAPRIL HCL 20 MG TABLET (FP) PO SCH (09:47)
[2016-11-07] MEDS: CYANOCOBALAMIN (VITAMIN B-12) 1000 MCG/1 ML VIAL IM SCH (09:48)
[2016-11-07] MEDS: POTASSIUM CHLORIDE TABS 20 MEQ TABLET.ER (FP) PO SCH ×2 (09:48→21:32)
[2016-11-07] MEDS: FE POLYSAC/CYANOCOBAL/FA COMBO CAPSULE PO SCH (09:48)
--- NOTE | 2016-11-07 11:36 | PN ---
Progress Note (short form) - Note Progress Note: Patient seen and examined Chart reviewed Currently lying supine in bed. Denies new chest discomfort, palpitations angina or dyspnea. Cough persists, but improved. Labs and biometrics consultant notes reviewed. Microbiology 11/05/16 08:25 Blood - Peripheral Venous Blood Culture - Preliminary NO GROWTH OBTAINED AFTER 48 HOURS, INCUBATION TO CONTINUE FOR 3 DAYS. 11/05/16 08:25 Blood - Peripheral Venous Blood Culture - Preliminary NO GROWTH OBTAINED AFTER 48 HOURS, INCUBATION TO CONTINUE FOR 3 DAYS. 11/02/16 19:48 Blood - Peripheral Venous Blood Culture - Preliminary Staphylococcus Coagulase Neg Selected Entries 11/06/16 11/07/16 21:00 10:00 Temperature 98.8 F Pulse Rate 84 Respiratory 18 Rate Blood Pressure 93/50 O2 Sat by Pulse 96 Oximetry (%) Oxygen Delivery Room Air Method Laboratory Tests 11/02/16 11/05/16 11/06/16 16:00 07:05 05:15 WBC Hgb Hct Plt Count ESR D-Dimer 825 H Sodium 139 Potassium 4.2 Chloride 103 Carbon Dioxide 29 BUN 8 Creatinine 0.5 L Random Glucose 80 Calcium 8.2 L Iron TIBC Iron Saturation Ferritin LD Total C-Reactive Protein Vitamin B12 TSH 2.12 D 11/06/16 11/06/16 11/06/16 05:15 05:15 05:15 WBC Hgb Hct Plt Count ESR D-Dimer Sodium Potassium Chloride Carbon Dioxide BUN Creatinine Random Glucose Calcium Iron 24 L TIBC 312 Iron Saturation 8 L Ferritin 39.158 LD Total 161 C-Reactive Protein < 0.3 Vitamin B12 244 TSH 11/06/16 11/07/16 05:15 06:40 WBC 2.7 L Hgb 10.8 Hct 33.4 Plt Count 202 ESR 35 H D-Dimer Sodium Potassium Chloride Carbon Dioxide BUN Creatinine Random Glucose Calcium Iron TIBC Iron Saturation Ferritin LD Total C-Reactive Protein Vitamin B12 TSH Chest Clear No wheeze or rhonchi Cor RRR Abd Soft obese BS normal Ext No edema No phlebitis RUE in sling Neuro No new focal deficit Assessment and Plan Pneumonitis On Rx Positive blood culture Likely contaminant On cephalosporin for pneumonitis Leukopenia 2.7 W/U as ordered Of note, increased % of lymphocytes vs polys ? viral reaction? Fe deficiency with Anemia 10.8/33.4 Monitor Low B-12 244 Supplement Hypothyroid TSH normal ASHD/HTN/Asthma/Constipation due to narcotic analgesia/gastritis/GERD/IBS/OA/ Right Shoulder replacement f/b right humerus fracture/Acid peptic disease/MVP
--- NOTE | 2016-11-07 12:54 | PN ---
Progress Note (short form) - Note Progress Note: Patient seen and examined Explained to her likely leucopenia is multifactorial - infection, antibiotics, B12 deificiency and can be followed as an outpatient Vital Signs Period Temp Pulse Resp BP Sys/Ahn Pulse Ox Last 24 Hr 97.9 F-98.9 F 84-95 17-20 93-126/50-63 94-96 HEENT: AJAY, EOM Intact Oropharynx: No thrush, No mucositis Cor: RSR, No murmurs, No gallops Lungs: Clear to P&A Abd: Soft, Normal bowel sounds, No organomegaly Ext:RUE in sling CBC, BMP 11/07/16 06:40 11/06/16 05:15 Active Medications Generic Name Dose Route Start Last Admin Trade Name Freq PRN Reason Stop Dose Admin Acetaminophen 650 mg 11/02/16 20:11 11/06/16 12:36 Tylenol - PO 650 mg Q4H PRN Administration FEVER OR PAIN Albuterol Sulfate 1 amp 11/02/16 20:11 11/06/16 09:35 Ventolin 0.083% Nebulizer Soln - NEB 1 amp Q6H PRN Administration SHORT OF BREATH/WHEEZING Alprazolam 2 mg 11/02/16 20:09 11/03/16 23:41 Xanax - PO 2 mg DAILY PRN Administration ANXIETY Ascorbic Acid 1,000 mg 11/03/16 10:00 11/07/16 09:46 Vitamin C - PO 1,000 mg DAILY [facility] Administration Aspirin 81 mg 11/03/16 10:00 11/07/16 09:47 Asa - PO 81 mg DAILY [facility] Administration B12/Folic Ac/Intrin Fact/Iron/Vit C 1 each 11/03/16 10:00 11/07/16 09:48 Niferex-150 Forte - PO 1 each DAILY [facility] Administration Cholecalciferol 2,000 unit 11/03/16 10:00 11/07/16 09:46 Vitamin D3 - PO 2,000 unit DAILY [facility] Administration Cyanocobalamin 1,000 mcg 11/06/16 10:00 11/07/16 09:48 Vitamin B12 Injection - IM 1,000 mcg DAILY [facility] Administration Cyclobenzaprine HCl 5 mg 11/02/16 22:00 11/07/16 06:01 Flexeril - PO 5 mg TID [facility] Administration Diltiazem HCl 240 mg 11/02/16 22:00 11/06/16 22:38 Cardizem Cd - PO 240 mg HS [facility] Administration Enoxaparin Sodium 40 mg 11/03/16 10:00 11/07/16 09:47 Lovenox - SQ 40 mg DAILY [facility] Administration Cefepime HCl 1 gm/ Dextrose 100 mls @ 200 mls/hr 11/03/16 11:45 11/07/16 09:47 IVPB 200 mls/hr BID [facility] Administration Ipratropium [place] 1 amp 11/03/16 00:00 11/07/16 10:00 Atrovent 0.02% Nebulizer - NEB 1 amp Q6HPO [facility] Administration Levothyroxine Sodium 25 mcg 11/03/16 07:00 11/07/16 06:02 Synthroid - PO 25 mcg ACBK [facility] Administration Montelukast Sodium 10 mg 11/05/16 22:00 11/06/16 22:39 Singulair - PO 10 mg HS [facility] Administration Nitroglycerin 0.4 mg 11/02/16 20:15 Nitrostat - SL PRN PRN Non-Formulary Medication 25 mg 11/03/16 10:00 Naloxegol Oxalate [Movantik] PO DAILY [facility] Nortriptyline HCl 50 mg 11/02/16 22:00 11/06/16 22:38 Pamelor - PO 50 mg HS [facility] Administration Ondansetron HCl 4 mg 11/02/16 20:11 Zofran Injection IVPB Q6H PRN NAUSEA Oxycodone HCl 5 mg 11/04/16 11:52 11/07/16 06:01 Roxicodone - PO 5 mg Q4H PRN Administration PAIN Polyethylene Glycol 17 gm 11/07/16 22:00 Miralax (For Daily Use) - PO BID [facility] Potassium Chloride 20 meq 11/04/16 10:00 11/07/16 09:48 K-Dur - PO 20 meq BID [facility] Administration Quinapril HCl 20 mg 11/06/16 10:00 11/07/16 09:47 Accupril - PO Not Given DAILY [facility] Ranitidine HCl 150 mg 11/02/16 22:00 11/06/16 22:39 Zantac - PO 150 mg HS [facility] Administration Senna 2 tab 11/02/16 22:00 11/06/16 22:38 Senna - PO Not Given HS [facility] Sertraline HCl 100 mg 11/03/16 10:00 11/07/16 09:47 Zoloft - PO 100 mg DAILY [facility] Administration Zolpidem Tartrate 5 mg 11/05/16 22:00 11/06/16 22:39 Ambien - PO 5 mg HS PRN Administration INSOMNIA A/P 76 year old female with a significant past medical history of Migraines, CAD, HTN, mvp, asthma, constipation, diverticulosis, gastritis, GERD, hiatal hernia, irritable bowel disease, peptic ulcer disease, Hypothyroidism, early glaucoma, cervical and lumbar radiculopathy, avascular necrosis of femoral head, who is sent in to the ED with SOB while walking and high blood pressure. Patient states she had surgery on October 13 for a fractured humerus of the right arm at [facility]. She had rt. shoulder replacement 09/25. she was noted to have bibasilar consolidation acute vs chronic Leukopenia: new onset --leukocytosis in 09/25. Mild increase eosinophils/ monocytes Leukopenia noted since 11/02/15 blood cx--staph coag. neg. ? contaminant suspect leukopenia due to meds ? flow/ FISH pending started B12 injections h/o iron deficiency --noted in 01/2016--ferritin 4 -- noncompliant with ferrex/ vit. c at home due to constipation a/w repeat iron studies anemia--anemia of iron deficiency needs gi w/u
[2016-11-07] MEDS: ACETAMINOPHEN 325 MG TABLET (FP) PO PRN (16:34)
[2016-11-07] MEDS: POLYETHYLENE GLYCOL 3350 119 GM BTL PO SCH (21:34)
[2016-11-07] MEDS: NORTRIPTYLINE HCL 25 MG CAPSULE PO SCH (21:35)
[2016-11-07] MEDS: SENNOSIDES 8.6MG TABLET (FP) PO SCH (21:36)
[2016-11-07] MEDS: RANITIDINE HCL 150 MG TABLET (FP) PO SCH (21:36)
[2016-11-07] MEDS: MONTELUKAST NA 10 MG TABLET PO SCH (21:36)
[2016-11-07] MEDS: ZOLPIDEM TARTRATE 5 MG TABLET PO PRN (21:37)
[2016-11-08] MEDS: ACETAMINOPHEN 325 MG TABLET (FP) PO PRN ×4 (00:02→22:04)
[2016-11-08] MEDS: CYCLOBENZAPRINE HCL 10 MG TABLET (FP) PO SCH ×3 (06:01→21:58)
[2016-11-08] MEDS: LEVOTHYROXINE NA 25 MCG TABLET (FP) PO SCH (06:02)
[2016-11-08 06:36] LABS: HEMATOCRIT 33.2 % (34.0-46.6)
[2016-11-08] MEDS: IPRATROPIUM BR 0.02% 0.5 MG/2.5 ML VIAL.NEB. NEB SCH ×4 (06:50→23:25)
[2016-11-08 07:11] LABS: BASOPHIL 0.6 % (0-2.0); MCH 27.7 pg (25.7-33.7); MCHC 32.2 g/dl (32.0-36.0); MEAN CELL VOLUME 85.9 fl (80-96); MEAN PLT VOLUME 8.6 fl (7.5-11.1); NEUTROPHILS 48.6 % (42.8-82.8); PLATELET COUNT 206 K/MM3 (134-434); RDW 21.7 % (11.6-15.6); WHITE BLOOD COUNT 3.3 K/mm3 (4.0-10.0)
[2016-11-08 08:27] LABS: ALBUMIN 2.8 g/dl (3.4-5.0); ALK PHOS 109 U/L (45-117); ANION GAP 8 (8-16); BILIRUBIN,TOTAL 0.6 mg/dL (0.2-1.0); CALCIUM 8.7 mg/dL (8.5-10.1); CO2 31 mmol/L (21-32); CREATININE 0.7 mg/dL (0.55-1.02); GLUCOSE,RANDOM 83 mg/dL (74-106); SGOT/AST 14 U/L (15-37); SGPT/ALT 11 U/L (12-78); TOT PROT 6.2 g/dl (6.4-8.2)
[2016-11-08] MEDS: ASPIRIN 81 MG CHEWABLE TABLETS PO SCH (08:59)
[2016-11-08] MEDS: ASCORBIC ACID 500 MG TABLET (FP) PO SCH (08:59)
[2016-11-08] MEDS: SERTRALINE HCL 50 MG TABLET (FP) PO SCH (08:59)
[2016-11-08] MEDS: POTASSIUM CHLORIDE TABS 20 MEQ TABLET.ER (FP) PO SCH ×2 (08:59→22:00)
[2016-11-08] MEDS: CYANOCOBALAMIN (VITAMIN B-12) 1000 MCG/1 ML VIAL IM SCH (09:00)
[2016-11-08] MEDS: CHOLECALCIFEROL (VITAMIN D3) 1,000 UNIT TABLET (FP) PO SCH (09:00)
[2016-11-08] MEDS: ENOXAPARIN NA (PORCINE) 40 MG/0.4 ML DISP.SYRIN SQ SCH (09:00)
[2016-11-08] MEDS: QUINAPRIL HCL 20 MG TABLET (FP) PO SCH (09:01)
[2016-11-08] MEDS: FE POLYSAC/CYANOCOBAL/FA COMBO CAPSULE PO SCH (09:01)
[2016-11-08] MEDS: POLYETHYLENE GLYCOL 3350 119 GM BTL PO SCH ×2 (09:02→22:01)
[2016-11-08] MEDS: CEFEPIME 1 GM in DEXTROSE 5%-WATER - 100 ML IVPB SCH ×2 (09:03→22:01)
[2016-11-08] MEDS: oxyCODONE HCL 5 MG TABLET PO PRN ×3 (09:14→22:03)
--- NOTE | 2016-11-08 10:29 | PN ---
Progress Note (short form) - Note Progress Note: Patient seen and examined Explained to her likely leucopenia is multifactorial - infection, antibiotics, B12 deficiency and can be followed as an outpatient Vital Signs Period Temp Pulse Resp BP Sys/Ahn Pulse Ox Last 24 Hr 97.8 F-98.5 F 83-96 16-20 102-107/44-82 91-94 HEENT: AJAY, EOM Intact Cor: RSR, No murmurs, No gallops Lungs: Clear to P&A Abd: Soft, Normal bowel sounds, No organomegaly Ext:RUE in sling CBC, BMP 11/08/16 05:45 11/08/16 05:45 Active Medications Generic Name Dose Route Start Last Admin Trade Name Freq PRN Reason Stop Dose Admin Acetaminophen 650 mg 11/02/16 20:11 11/08/16 09:15 Tylenol - PO 650 mg Q4H PRN Administration FEVER OR PAIN Albuterol Sulfate 1 amp 11/02/16 20:11 11/06/16 09:35 Ventolin 0.083% Nebulizer Soln - NEB 1 amp Q6H PRN Administration SHORT OF BREATH/WHEEZING Alprazolam 2 mg 11/02/16 20:09 11/03/16 23:41 Xanax - PO 2 mg DAILY PRN Administration ANXIETY Ascorbic Acid 1,000 mg 11/03/16 10:00 11/08/16 08:59 Vitamin C - PO 1,000 mg DAILY [facility] Administration Aspirin 81 mg 11/03/16 10:00 11/08/16 08:59 Asa - PO 81 mg DAILY [facility] Administration B12/Folic Ac/Intrin Fact/Iron/Vit C 1 each 11/03/16 10:00 11/08/16 09:01 Niferex-150 Forte - PO 1 each DAILY [facility] Administration Cholecalciferol 2,000 unit 11/03/16 10:00 11/08/16 09:00 Vitamin D3 - PO 2,000 unit DAILY [facility] Administration Cyanocobalamin 1,000 mcg 11/06/16 10:00 11/08/16 09:00 Vitamin B12 Injection - IM 1,000 mcg DAILY [facility] Administration Cyclobenzaprine HCl 5 mg 11/02/16 22:00 11/08/16 06:01 Flexeril - PO 5 mg TID [facility] Administration Diltiazem HCl 240 mg 11/02/16 22:00 11/07/16 21:29 Cardizem Cd - PO 240 mg HS [facility] Administration Enoxaparin Sodium 40 mg 11/03/16 10:00 11/08/16 09:00 Lovenox - SQ 40 mg DAILY [facility] Administration Cefepime HCl 1 gm/ Dextrose 100 mls @ 200 mls/hr 11/03/16 11:45 11/08/16 09:03 IVPB 200 mls/hr BID [facility] Administration Ipratropium [place] 1 amp 11/03/16 00:00 11/08/16 06:50 Atrovent 0.02% Nebulizer - NEB Not Given Q6HPO [facility] Levothyroxine Sodium 25 mcg 11/03/16 07:00 11/08/16 06:02 Synthroid - PO 25 mcg ACBK [facility] Administration Montelukast Sodium 10 mg 11/05/16 22:00 11/07/16 21:36 Singulair - PO 10 mg HS [facility] Administration Nitroglycerin 0.4 mg 11/02/16 20:15 Nitrostat - SL PRN PRN Non-Formulary Medication 25 mg 11/03/16 10:00 Naloxegol Oxalate [Movantik] PO DAILY [facility] Nortriptyline HCl 50 mg 11/02/16 22:00 11/07/16 21:35 Pamelor - PO 50 mg HS [facility] Administration Ondansetron HCl 4 mg 11/02/16 20:11 Zofran Injection IVPB Q6H PRN NAUSEA Oxycodone HCl 5 mg 11/04/16 11:52 11/08/16 09:14 Roxicodone - PO 5 mg Q4H PRN Administration PAIN Polyethylene Glycol 17 gm 11/07/16 22:00 11/08/16 09:02 Miralax (For Daily Use) - PO 17 grams BID [facility] Administration Potassium Chloride 20 meq 11/04/16 10:00 11/08/16 08:59 K-Dur - PO 20 meq BID [facility] Administration Quinapril HCl 20 mg 11/06/16 10:00 11/08/16 09:01 Accupril - PO 20 mg DAILY [facility] Administration Ranitidine HCl 150 mg 11/02/16 22:00 11/07/16 21:36 Zantac - PO 150 mg HS [facility] Administration Senna 2 tab 11/02/16 22:00 11/07/16 21:36 Senna - PO Not Given HS [facility] Sertraline HCl 100 mg 11/03/16 10:00 11/08/16 08:59 Zoloft - PO 100 mg DAILY [facility] Administration Zolpidem Tartrate 5 mg 11/05/16 22:00 11/07/16 21:37 Ambien - PO 5 mg HS PRN Administration INSOMNIA A/P 76 year old female with a significant past medical history of Migraines, CAD, HTN, mvp, asthma, constipation, diverticulosis, gastritis, GERD, hiatal hernia, irritable bowel disease, peptic ulcer disease, Hypothyroidism, early glaucoma, cervical and lumbar radiculopathy, avascular necrosis of femoral head, who is sent in to the ED with SOB while walking and high blood pressure. Patient states she had surgery on October 13 for a fractured humerus of the right arm at [facility]. She had rt. shoulder replacement 09/25. she was noted to have bibasilar consolidation acute vs chronic Leukopenia: new onset --leukocytosis in 09/25. Mild increase eosinophils/ monocytes Neutrophils better now Even when she came in she had a mild eosinophilia with monocytosis could be a primary BM problem - ? MDS flow/ FISH pending started B12 injections h/o iron deficiency --noted in 01/2016--ferritin 4 -- noncompliant with ferrex/ vit. c at home due to constipation a/w repeat iron studies anemia--anemia of iron deficiency needs gi w/u
--- NOTE | 2016-11-08 11:31 | PN ---
Progress Note (short form) - Note Progress Note: Patient seen and examined Chart reviewed. Currently alert and appropriate, lying supine in bed. Denies new chest discomfort, palpitations angina or dyspnea. Cough persists, but improved. Labs and client insights consultant notes reviewed. Selected Entries 11/08/16 11/08/16 06:27 09:00 Temperature 98.5 F Pulse Rate 86 Respiratory 20 Rate Blood Pressure 102/82 O2 Sat by Pulse 92 L Oximetry (%) Oxygen Delivery Nasal Cannula Method Oxygen Flow 2 Rate Laboratory Tests 11/08/16 11/08/16 05:45 05:45 WBC 3.3 L Hgb 11.1 Hct 34.3 Plt Count 206 Sodium 139 Potassium 4.5 Chloride 100 Carbon Dioxide 31 BUN 10 D Creatinine 0.7 D Creat Clearance w eGFR > 60 Random Glucose 83 Calcium 8.7 Total Bilirubin 0.6 D AST 14 L ALT 11 L D Alkaline Phosphatase 109 Total Protein 6.2 L Albumin 2.8 L Chest Clear No wheeze or rhonchi Cor RRR Abd Soft obese BS normal Ext No edema No phlebitis RUE in sling Neuro No new focal deficit Assessment and Plan Pneumonitis On Rx Positive blood culture Likely contaminant On cephalosporin for pneumonitis Leukopenia 2.7>>3.3 W/U as ordered Of note, increased % of lymphocytes vs polys ?viral reaction? Fe deficiency with Anemia 10.8/33.4 Monitor Low B-12 244 Supplement Hypothyroid TSH normal ASHD/HTN/Asthma/Constipation due to narcotic analgesia/gastritis/GERD/IBS/OA/ Right Shoulder replacement f/b right humerus fracture/Acid peptic disease/MVP/ Migraine headaches
--- NOTE | 2016-11-08 12:11 | PN ---
Progress Note (short form) - Note Progress Note: Chief Complaint: Events noted, notes reviewed, denies any chest pain, reports persistent dyspnea but improved History of Present Illness: Seen and examined. Events noted, notes reviewed, denies any chest pain, reports persistent dyspnea but improved Echocardiography dated 11/04/2016 revealed normal LV size and function, moderate TR - Current Medication List Current Medications Acetaminophen (Tylenol -) 650 mg PO Q4H PRN PRN Reason: FEVER OR PAIN Last Admin: 11/08/16 09:15 Dose: 650 mg Albuterol Sulfate (Ventolin 0.083% Nebulizer Soln -) 1 amp NEB Q6H PRN PRN Reason: SHORT OF BREATH/WHEEZING Last Admin: 11/06/16 09:35 Dose: 1 amp Alprazolam (Xanax -) 2 mg PO DAILY PRN PRN Reason: ANXIETY Last Admin: 11/03/16 23:41 Dose: 2 mg Ascorbic Acid (Vitamin C -) 1,000 mg PO DAILY [facility] Last Admin: 11/08/16 08:59 Dose: 1,000 mg Aspirin (Asa -) 81 mg PO DAILY [facility] Last Admin: 11/08/16 08:59 Dose: 81 mg B12/Folic Ac/Intrin Fact/Iron/Vit C (Niferex-150 Forte -) 1 each PO DAILY [facility] Last Admin: 11/08/16 09:01 Dose: 1 each Cholecalciferol (Vitamin D3 -) 2,000 unit PO DAILY [facility] Last Admin: 11/08/16 09:00 Dose: 2,000 unit Cyanocobalamin (Vitamin B12 Injection -) 1,000 mcg IM DAILY [facility] Last Admin: 11/08/16 09:00 Dose: 1,000 mcg Cyclobenzaprine HCl (Flexeril -) 5 mg PO TID [facility] Last Admin: 11/08/16 06:01 Dose: 5 mg Diltiazem HCl (Cardizem Cd -) 240 mg PO HS [facility] Last Admin: 11/07/16 21:29 Dose: 240 mg Enoxaparin Sodium (Lovenox -) 40 mg SQ DAILY [facility] Last Admin: 11/08/16 09:00 Dose: 40 mg Cefepime HCl 1 gm/ Dextrose 100 mls @ 200 mls/hr IVPB BID [facility] Last Admin: 11/08/16 09:03 Dose: 200 mls/hr Ipratropium [place] (Atrovent 0.02% Nebulizer -) 1 amp NEB Q6HPO [facility] Last Admin: 11/08/16 10:30 Dose: 1 amp Levothyroxine Sodium (Synthroid -) 25 mcg PO ACBK [facility] Last Admin: 11/08/16 06:02 Dose: 25 mcg Montelukast Sodium (Singulair -) 10 mg PO HS [facility] Last Admin: 11/07/16 21:36 Dose: 10 mg Nitroglycerin (Nitrostat -) 0.4 mg SL PRN PRN Non-Formulary Medication (Naloxegol Oxalate [Movantik]) 25 mg PO DAILY [facility] Nortriptyline HCl (Pamelor -) 50 mg PO [facility] Last Admin: 11/07/16 21:35 Dose: 50 mg Ondansetron HCl (Zofran Injection) 4 mg IVPB Q6H PRN PRN Reason: NAUSEA Oxycodone HCl (Roxicodone -) 5 mg PO Q4H PRN PRN Reason: PAIN Last Admin: 11/08/16 09:14 Dose: 5 mg Polyethylene Glycol (Miralax (For Daily Use) -) 17 gm PO BID [facility] Last Admin: 11/08/16 09:02 Dose: 17 grams Potassium Chloride (K-Dur -) 20 meq PO BID [facility] Last Admin: 11/08/16 08:59 Dose: 20 meq Quinapril HCl (Accupril -) 20 mg PO DAILY [facility] Last Admin: 11/08/16 09:01 Dose: 20 mg Ranitidine HCl (Zantac -) 150 mg PO [facility] Last Admin: 11/07/16 21:36 Dose: 150 mg Senna (Senna -) 2 tab PO [facility] Last Admin: 11/07/16 21:36 Dose: Not Given Sertraline HCl (Zoloft -) 100 mg PO DAILY [facility] Last Admin: 11/08/16 08:59 Dose: 100 mg Zolpidem Tartrate (Ambien -) 5 mg PO HS PRN PRN Reason: INSOMNIA Last Admin: 11/07/16 21:37 Dose: 5 mg - Objective Vital Signs: Last Vital Signs Temp Pulse Resp BP Pulse Ox 98.5 F 89 20 104/52 92 L 11/08/16 06:27 11/08/16 11:28 11/08/16 09:00 11/08/16 09:00 11/08/16 11:28 Constitutional: No Distress, Calm Neck: Supple Negative JVD No Bruit Cardiovascular: S1 S2 Regular Rate and Rhythm Respiratory: Diminished Breath Sounds at the Bases Gastrointestinal: Soft Benign Normal Bowel Sounds Ext: No Edema Labs: CBC, BMP 11/08/16 05:45 11/08/16 05:45 Assessment/Plan ASSESSMENT: 1. Community acquired pneumonia, resolving 2. History of MVP 3. HTN 4. Hypothyroidism 5. Recent right humeral fracture - post repair PLAN: 1. Antibiotics as per the primary team 2. Continue Cardizem CD 3. Continue Quinapril 4. Continue ELGIN Miguel MD
[2016-11-08] MEDS ORDERED: PT OWN MED DRAWER 7, Y5N ONE (20:14)
[2016-11-08] MEDS: NORTRIPTYLINE HCL 25 MG CAPSULE PO SCH (22:02)
[2016-11-08] MEDS: SENNOSIDES 8.6MG TABLET (FP) PO SCH (22:03)
[2016-11-08] MEDS: RANITIDINE HCL 150 MG TABLET (FP) PO SCH (22:03)
[2016-11-08] MEDS: MONTELUKAST NA 10 MG TABLET PO SCH (22:03)
[2016-11-08] MEDS: ZOLPIDEM TARTRATE 5 MG TABLET PO PRN (22:05)
[2016-11-09] MEDS: oxyCODONE HCL 5 MG TABLET PO PRN ×3 (04:26→20:19)
[2016-11-09] MEDS: ACETAMINOPHEN 325 MG TABLET (FP) PO PRN ×3 (04:27→20:20)
[2016-11-09] MEDS: LEVOTHYROXINE NA 25 MCG TABLET (FP) PO SCH (06:07)
[2016-11-09] MEDS: CYCLOBENZAPRINE HCL 10 MG TABLET (FP) PO SCH ×3 (06:07→21:37)
[2016-11-09] MEDS: IPRATROPIUM BR 0.02% 0.5 MG/2.5 ML VIAL.NEB. NEB SCH ×3 (06:45→17:10)
[2016-11-09 07:55] LABS: BASOPHIL 0.4 % (0-2.0); EOSINOPHIL 4.4 % (0-4.5); MCH 27.5 pg (25.7-33.7); NEUTROPHILS 41.1 % (42.8-82.8); PLATELET COUNT 197 K/MM3 (134-434); RDW 21.2 % (11.6-15.6); WHITE BLOOD COUNT 3.5 K/mm3 (4.0-10.0)
--- NOTE | 2016-11-09 09:59 | PN ---
Progress Note, Physician Chief Complaint: coughing. History of Present Illness: Patient admitted with pulmonary infiltrates on Chest CAT with no cough has been having loose sputum with increased coughing the last few days as finally the pneumonia is starting to break up. On IV antibiotics and aerosol. Also improved WBC count to 3,5oo. Repeat blood C/S negative so far. - Current Medication List Current Medications: Active Medications Acetaminophen (Tylenol -) 650 mg PO Q4H PRN PRN Reason: FEVER OR PAIN Last Admin: 11/09/16 04:27 Dose: 650 mg Albuterol Sulfate (Ventolin 0.083% Nebulizer Soln -) 1 amp NEB Q6H PRN PRN Reason: SHORT OF BREATH/WHEEZING Last Admin: 11/06/16 09:35 Dose: 1 amp Alprazolam (Xanax -) 2 mg PO DAILY PRN PRN Reason: ANXIETY Last Admin: 11/03/16 23:41 Dose: 2 mg Ascorbic Acid (Vitamin C -) 1,000 mg PO DAILY [facility] Last Admin: 11/08/16 08:59 Dose: 1,000 mg Aspirin (Asa -) 81 mg PO DAILY [facility] Last Admin: 11/08/16 08:59 Dose: 81 mg B12/Folic Ac/Intrin Fact/Iron/Vit C (Niferex-150 Forte -) 1 each PO DAILY [facility] Last Admin: 11/08/16 09:01 Dose: 1 each Cholecalciferol (Vitamin D3 -) 2,000 unit PO DAILY [facility] Last Admin: 11/08/16 09:00 Dose: 2,000 unit Cyanocobalamin (Vitamin B12 Injection -) 1,000 mcg IM DAILY [facility] Last Admin: 11/08/16 09:00 Dose: 1,000 mcg Cyclobenzaprine HCl (Flexeril -) 5 mg PO TID [facility] Last Admin: 11/09/16 06:07 Dose: 5 mg Diltiazem HCl (Cardizem Cd -) 240 mg PO HS [facility] Last Admin: 11/08/16 21:58 Dose: 240 mg Enoxaparin Sodium (Lovenox -) 40 mg SQ DAILY [facility] Last Admin: 11/08/16 09:00 Dose: 40 mg Cefepime HCl 1 gm/ Dextrose 100 mls @ 200 mls/hr IVPB BID [facility] Last Admin: 11/08/16 22:01 Dose: 200 mls/hr Ipratropium [place] (Atrovent 0.02% Nebulizer -) 1 amp NEB Q6HPO [facility] Last Admin: 11/09/16 06:45 Dose: 1 amp Levothyroxine Sodium (Synthroid -) 25 mcg PO ACBK [facility] Last Admin: 11/09/16 06:07 Dose: 25 mcg Montelukast Sodium (Singulair -) 10 mg PO HS [facility] Last Admin: 11/08/16 22:03 Dose: 10 mg Nitroglycerin (Nitrostat -) 0.4 mg SL PRN PRN Non-Formulary Medication (Naloxegol Oxalate [Movantik]) 25 mg PO DAILY [facility] Nortriptyline HCl (Pamelor -) 50 mg PO [facility] Last Admin: 11/08/16 22:02 Dose: 50 mg Ondansetron HCl (Zofran Injection) 4 mg IVPB Q6H PRN PRN Reason: NAUSEA Oxycodone HCl (Roxicodone -) 5 mg PO Q4H PRN PRN Reason: PAIN Last Admin: 11/09/16 04:26 Dose: 5 mg Polyethylene Glycol (Miralax (For Daily Use) -) 17 gm PO BID [facility] Last Admin: 11/08/16 22:01 Dose: 17 grams Potassium Chloride (K-Dur -) 20 meq PO BID [facility] Last Admin: 11/08/16 22:00 Dose: 20 meq Quinapril HCl (Accupril -) 20 mg PO DAILY [facility] Last Admin: 11/08/16 09:01 Dose: 20 mg Ranitidine HCl (Zantac -) 150 mg PO [facility] Last Admin: 11/08/16 22:03 Dose: 150 mg Senna (Senna -) 2 tab PO [facility] Last Admin: 11/08/16 22:03 Dose: Not Given Sertraline HCl (Zoloft -) 100 mg PO DAILY [facility] Last Admin: 11/08/16 08:59 Dose: 100 mg Zolpidem Tartrate (Ambien -) 5 mg PO HS PRN PRN Reason: INSOMNIA Last Admin: 11/08/16 22:05 Dose: 5 mg - Objective Vital Signs: Vital Signs Temperature 98.4 F 11/09/16 06:00 Pulse Rate 90 11/09/16 06:00 Respiratory Rate 20 11/09/16 06:00 Blood Pressure 117/61 11/09/16 06:00 O2 Sat by Pulse Oximetry (%) 92 L 11/08/16 20:54 Constitutional: Yes: Calm Cardiovascular: Yes: Regular Rate and Rhythm Respiratory: Yes: Rhonchi, Wheezes (at bases (wheezes are rare)) Gastrointestinal: Yes: Soft (Had BM) Edema: No Neurological: Yes: Alert, Oriented Labs: CBC, BMP 11/09/16 07:25 11/08/16 05:45 INR, PTT INR 1.13 (0.82-1.09) 11/02/16 15:00 Problem List - Problems (1) Community acquired pneumonia Assessment/Plan: ON IV antibiotics Code(s): J18.9 - PNEUMONIA, UNSPECIFIED ORGANISM (2) Humeral fracture Assessment/Plan: Followed by Ortho . Code(s): S42.309A - UNSP FRACTURE OF SHAFT OF HUMERUS, UNSP ARM, INIT Qualifiers: Encounter type: initial encounter Humerus Location: shaft Fracture type: closed Fracture morphology: oblique Fracture alignment: displaced Laterality: right Qualified Code(s): S42.331A - Displaced oblique fracture of shaft of humerus, right arm, initial encounter for closed fracture (3) Asthma Assessment/Plan: Still some wheezing but no acute change. Code(s): J45.909 - UNSPECIFIED ASTHMA, UNCOMPLICATED (4) Hypothyroid Assessment/Plan: On Rx. Code(s): E03.9 - HYPOTHYROIDISM, UNSPECIFIED Qualifiers: Hypothyroidism type: unspecified Qualified Code(s): E03.9 - Hypothyroidism, unspecified (5) Pain Code(s): R52 - PAIN, UNSPECIFIED (6) Hypokalemia Code(s): E87.6 - HYPOKALEMIA (7) Leukopenia Assessment/Plan: Improved to 3,500. To follow. Code(s): D72.819 - DECREASED WHITE BLOOD CELL COUNT, UNSPECIFIED (8) B12 deficiency Assessment/Plan: On B12 1000 mcg im A DAY Code(s): E53.8 - DEFICIENCY OF OTHER SPECIFIED B GROUP VITAMINS
[2016-11-09] MEDS ORDERED: PT OWN MED DRAWER 7, Y5N ONE ×2 (10:50→21:04)
[2016-11-09] MEDS: CEFEPIME 1 GM in DEXTROSE 5%-WATER - 100 ML IVPB SCH ×2 (10:57→21:35)
[2016-11-09] MEDS: POTASSIUM CHLORIDE TABS 20 MEQ TABLET.ER (FP) PO SCH ×2 (10:58→21:38)
[2016-11-09] MEDS: SERTRALINE HCL 50 MG TABLET (FP) PO SCH (10:58)
[2016-11-09] MEDS: ASCORBIC ACID 500 MG TABLET (FP) PO SCH (10:58)
[2016-11-09] MEDS: ASPIRIN 81 MG CHEWABLE TABLETS PO SCH (10:58)
[2016-11-09] MEDS: ENOXAPARIN NA (PORCINE) 40 MG/0.4 ML DISP.SYRIN SQ SCH (10:58)
[2016-11-09] MEDS: CHOLECALCIFEROL (VITAMIN D3) 1,000 UNIT TABLET (FP) PO SCH (10:58)
[2016-11-09] MEDS: FE POLYSAC/CYANOCOBAL/FA COMBO CAPSULE PO SCH (10:59)
[2016-11-09] MEDS: QUINAPRIL HCL 20 MG TABLET (FP) PO SCH (10:59)
[2016-11-09] MEDS: CYANOCOBALAMIN (VITAMIN B-12) 1000 MCG/1 ML VIAL IM SCH (10:59)
[2016-11-09] MEDS: POLYETHYLENE GLYCOL 3350 119 GM BTL PO SCH ×2 (11:00→21:38)
--- NOTE | 2016-11-09 11:07 | PN ---
Progress Note, Physician History of Present Illness: Awake, alert in bed More energetic Less cough No c/o chest pain/ dyspnea No fever/ chills Remains leukopenic - Current Medication List Current Medications: Active Medications Acetaminophen (Tylenol -) 650 mg PO Q4H PRN PRN Reason: FEVER OR PAIN Last Admin: 11/09/16 10:26 Dose: 650 mg Albuterol Sulfate (Ventolin 0.083% Nebulizer Soln -) 1 amp NEB Q6H PRN PRN Reason: SHORT OF BREATH/WHEEZING Last Admin: 11/06/16 09:35 Dose: 1 amp Alprazolam (Xanax -) 2 mg PO DAILY PRN PRN Reason: ANXIETY Last Admin: 11/03/16 23:41 Dose: 2 mg Ascorbic Acid (Vitamin C -) 1,000 mg PO DAILY [facility] Last Admin: 11/09/16 10:58 Dose: 1,000 mg Aspirin (Asa -) 81 mg PO DAILY [facility] Last Admin: 11/09/16 10:58 Dose: 81 mg B12/Folic Ac/Intrin Fact/Iron/Vit C (Niferex-150 Forte -) 1 each PO DAILY [facility] Last Admin: 11/09/16 10:59 Dose: 1 each Cholecalciferol (Vitamin D3 -) 2,000 unit PO DAILY [facility] Last Admin: 11/09/16 10:58 Dose: 2,000 unit Cyanocobalamin (Vitamin B12 Injection -) 1,000 mcg IM DAILY [facility] Last Admin: 11/09/16 10:59 Dose: 1,000 mcg Cyclobenzaprine HCl (Flexeril -) 5 mg PO TID [facility] Last Admin: 11/09/16 06:07 Dose: 5 mg Diltiazem HCl (Cardizem Cd -) 240 mg PO HS [facility] Last Admin: 11/08/16 21:58 Dose: 240 mg Enoxaparin Sodium (Lovenox -) 40 mg SQ DAILY [facility] Last Admin: 11/09/16 10:58 Dose: 40 mg Cefepime HCl 1 gm/ Dextrose 100 mls @ 200 mls/hr IVPB BID [facility] Last Admin: 11/09/16 10:57 Dose: 200 mls/hr Ipratropium [place] (Atrovent 0.02% Nebulizer -) 1 amp NEB Q6HPO [facility] Last Admin: 11/09/16 06:45 Dose: 1 amp Levothyroxine Sodium (Synthroid -) 25 mcg PO ACBK [facility] Last Admin: 11/09/16 06:07 Dose: 25 mcg Montelukast Sodium (Singulair -) 10 mg PO [facility] Last Admin: 11/08/16 22:03 Dose: 10 mg Nitroglycerin (Nitrostat -) 0.4 mg SL PRN PRN Non-Formulary Medication (Naloxegol Oxalate [Movantik]) 25 mg PO DAILY [facility] Nortriptyline HCl (Pamelor -) 50 mg PO [facility] Last Admin: 11/08/16 22:02 Dose: 50 mg Ondansetron HCl (Zofran Injection) 4 mg IVPB Q6H PRN PRN Reason: NAUSEA Oxycodone HCl (Roxicodone -) 5 mg PO Q4H PRN PRN Reason: PAIN Last Admin: 11/09/16 10:24 Dose: 5 mg Polyethylene Glycol (Miralax (For Daily Use) -) 17 gm PO BID [facility] Last Admin: 11/09/16 11:00 Dose: 17 grams Potassium Chloride (K-Dur -) 20 meq PO BID [facility] Last Admin: 11/09/16 10:58 Dose: 20 meq Quinapril HCl (Accupril -) 20 mg PO DAILY [facility] Last Admin: 11/09/16 10:59 Dose: 20 mg Ranitidine HCl (Zantac -) 150 mg PO [facility] Last Admin: 11/08/16 22:03 Dose: 150 mg Senna (Senna -) 2 tab PO [facility] Last Admin: 11/08/16 22:03 Dose: Not Given Sertraline HCl (Zoloft -) 100 mg PO DAILY [facility] Last Admin: 11/09/16 10:58 Dose: 100 mg Zolpidem Tartrate (Ambien -) 5 mg PO HS PRN PRN Reason: INSOMNIA Last Admin: 11/08/16 22:05 Dose: 5 mg - Objective Vital Signs: Vital Signs Temperature 97.2 F L 11/09/16 10:05 Pulse Rate 100 H 11/09/16 10:05 Respiratory Rate 20 11/09/16 10:05 Blood Pressure 102/65 11/09/16 10:05 O2 Sat by Pulse Oximetry (%) 97 11/09/16 10:05 Constitutional: Yes: No Distress Eyes: Yes: Conjunctiva Clear Cardiovascular: Yes: Regular Rate and Rhythm, S1, S2 Respiratory: Yes: Diminished Gastrointestinal: Yes: Normal Bowel Sounds, Soft, Abdomen, Obese. No: Tenderness Edema: Yes Labs: CBC, BMP 11/09/16 07:25 11/08/16 05:45 INR, PTT INR 1.13 (0.82-1.09) 11/02/16 15:00 Assessment/Plan + BC GPCCL x 1 bottle - SCN = contaminant S/P shoulder repair, humerus fracture Pneumonia improved Day # 7 antibiotics Clinically improved D/C antibiotics, observe off No treatment for SCN in blood
--- NOTE | 2016-11-09 12:26 | PN ---
Progress Note, Physician History of Present Illness: Dyspnea and cough improved, denies chest pain, afebrile. - Current Medication List Current Medications: Active Medications Acetaminophen (Tylenol -) 650 mg PO Q4H PRN PRN Reason: FEVER OR PAIN Last Admin: 11/09/16 10:26 Dose: 650 mg Albuterol Sulfate (Ventolin 0.083% Nebulizer Soln -) 1 amp NEB Q6H PRN PRN Reason: SHORT OF BREATH/WHEEZING Last Admin: 11/06/16 09:35 Dose: 1 amp Alprazolam (Xanax -) 2 mg PO DAILY PRN PRN Reason: ANXIETY Last Admin: 11/03/16 23:41 Dose: 2 mg Ascorbic Acid (Vitamin C -) 1,000 mg PO DAILY [facility] Last Admin: 11/09/16 10:58 Dose: 1,000 mg Aspirin (Asa -) 81 mg PO DAILY [facility] Last Admin: 11/09/16 10:58 Dose: 81 mg B12/Folic Ac/Intrin Fact/Iron/Vit C (Niferex-150 Forte -) 1 each PO DAILY [facility] Last Admin: 11/09/16 10:59 Dose: 1 each Cholecalciferol (Vitamin D3 -) 2,000 unit PO DAILY [facility] Last Admin: 11/09/16 10:58 Dose: 2,000 unit Cyanocobalamin (Vitamin B12 Injection -) 1,000 mcg IM DAILY [facility] Last Admin: 11/09/16 10:59 Dose: 1,000 mcg Cyclobenzaprine HCl (Flexeril -) 5 mg PO TID [facility] Last Admin: 11/09/16 06:07 Dose: 5 mg Diltiazem HCl (Cardizem Cd -) 240 mg PO HS [facility] Last Admin: 11/08/16 21:58 Dose: 240 mg Enoxaparin Sodium (Lovenox -) 40 mg SQ DAILY [facility] Last Admin: 11/09/16 10:58 Dose: 40 mg Cefepime HCl 1 gm/ Dextrose 100 mls @ 200 mls/hr IVPB BID [facility] Last Admin: 11/09/16 10:57 Dose: 200 mls/hr Ipratropium [place] (Atrovent 0.02% Nebulizer -) 1 amp NEB Q6HPO [facility] Last Admin: 11/09/16 06:45 Dose: 1 amp Levothyroxine Sodium (Synthroid -) 25 mcg PO ACBK [facility] Last Admin: 11/09/16 06:07 Dose: 25 mcg Montelukast Sodium (Singulair -) 10 mg PO [facility] Last Admin: 11/08/16 22:03 Dose: 10 mg Nitroglycerin (Nitrostat -) 0.4 mg SL PRN PRN Non-Formulary Medication (Naloxegol Oxalate [Movantik]) 25 mg PO DAILY [facility] Nortriptyline HCl (Pamelor -) 50 mg PO [facility] Last Admin: 11/08/16 22:02 Dose: 50 mg Ondansetron HCl (Zofran Injection) 4 mg IVPB Q6H PRN PRN Reason: NAUSEA Oxycodone HCl (Roxicodone -) 5 mg PO Q4H PRN PRN Reason: PAIN Last Admin: 11/09/16 10:24 Dose: 5 mg Polyethylene Glycol (Miralax (For Daily Use) -) 17 gm PO BID [facility] Last Admin: 11/09/16 11:00 Dose: 17 grams Potassium Chloride (K-Dur -) 20 meq PO BID [facility] Last Admin: 11/09/16 10:58 Dose: 20 meq Quinapril HCl (Accupril -) 20 mg PO DAILY [facility] Last Admin: 11/09/16 10:59 Dose: 20 mg Ranitidine HCl (Zantac -) 150 mg PO [facility] Last Admin: 11/08/16 22:03 Dose: 150 mg Senna (Senna -) 2 tab PO [facility] Last Admin: 11/08/16 22:03 Dose: Not Given Sertraline HCl (Zoloft -) 100 mg PO DAILY [facility] Last Admin: 11/09/16 10:58 Dose: 100 mg Zolpidem Tartrate (Ambien -) 5 mg PO HS PRN PRN Reason: INSOMNIA Last Admin: 11/08/16 22:05 Dose: 5 mg - Objective Vital Signs: Vital Signs Temperature 97.2 F L 11/09/16 10:05 Pulse Rate 100 H 11/09/16 10:05 Respiratory Rate 20 11/09/16 10:05 Blood Pressure 102/65 11/09/16 10:05 O2 Sat by Pulse Oximetry (%) 97 11/09/16 10:05 Constitutional: Yes: No Distress, Calm Neck: Yes: Supple Cardiovascular: Yes: Regular Rate and Rhythm Respiratory: Yes: Regular, Diminished Gastrointestinal: Yes: Normal Bowel Sounds, Soft Edema: No Labs: CBC, BMP 11/09/16 07:25 11/08/16 05:45 INR, PTT INR 1.13 (0.82-1.09) 11/02/16 15:00 Problem List - Problems (1) Community acquired pneumonia Code(s): J18.9 - PNEUMONIA, UNSPECIFIED ORGANISM (2) Mitral valve prolapse Code(s): I34.1 - NONRHEUMATIC MITRAL (VALVE) PROLAPSE (3) Anemia Code(s): D64.9 - ANEMIA, UNSPECIFIED Qualifiers: Anemia type: unspecified type Qualified Code(s): D64.9 - Anemia, unspecified (4) Humeral fracture Code(s): S42.309A - UNSP FRACTURE OF SHAFT OF HUMERUS, UNSP ARM, INIT Qualifiers: Encounter type: initial encounter Humerus Location: shaft Fracture type: closed Fracture morphology: oblique Fracture alignment: displaced Laterality: right Qualified Code(s): S42.331A - Displaced oblique fracture of shaft of humerus, right arm, initial encounter for closed fracture (5) HTN (hypertension) Code(s): I10 - ESSENTIAL (PRIMARY) HYPERTENSION Qualifiers: Hypertension type: essential hypertension Qualified Code(s): I10 - Essential (primary) hypertension (6) Hypothyroid Code(s): E03.9 - HYPOTHYROIDISM, UNSPECIFIED Qualifiers: Hypothyroidism type: unspecified Qualified Code(s): E03.9 - Hypothyroidism, unspecified Assessment/Plan 11/04/2016 Echo: Normal LV size and fxn, mod TR 1. Community acquired pneumonia, resolving 2. History of MVP 3. Recent right humeral fracture - post repair 4. HTN 5. Hypothyroidism 6. Anemia, leukopenia due to bacteremia PLAN: 1. Completed Cefepime/Vanco course per ID recs 2. Bronchodilators, Singulair, O2 as needed. 3. Continue Cardizem CD 240 qhs, ASA 81 qd and Quinapril 20 qd 4. DVT and GI prophylaxis 5. OOB to chair
--- NOTE | 2016-11-09 16:07 | PN ---
Progress Note (short form) - Note Progress Note: Patiene seen and examined Anxious to go home Last Vital Signs Temp Pulse Resp BP Pulse Ox 98.7 F 100 H 22 125/70 97 11/09/16 14:43 11/09/16 14:43 11/09/16 14:43 11/09/16 14:43 11/09/16 10:05 HEENT: AJAY, EOM Intact Oropharynx: No thrush, No mucositis Cor: RSR, No murmurs, No gallops Lungs: Clear to P&A Abd: Soft, Normal bowel sounds, No organomegaly Ext:RUE in sling Abnormal Lab Results 11/09/16 07:25 WBC 3.5 L RDW 21.2 H Neutrophils % 41.1 L Lymphocytes % 41.3 H D Monocytes % 12.8 H Current Medications Acetaminophen (Tylenol -) 650 mg PO Q4H PRN PRN Reason: FEVER OR PAIN Last Admin: 11/09/16 10:26 Dose: 650 mg Albuterol Sulfate (Ventolin 0.083% Nebulizer Soln -) 1 amp NEB Q6H PRN PRN Reason: SHORT OF BREATH/WHEEZING Last Admin: 11/06/16 09:35 Dose: 1 amp Alprazolam (Xanax -) 2 mg PO DAILY PRN PRN Reason: ANXIETY Last Admin: 11/03/16 23:41 Dose: 2 mg Ascorbic Acid (Vitamin C -) 1,000 mg PO DAILY [facility] Last Admin: 11/09/16 10:58 Dose: 1,000 mg Aspirin (Asa -) 81 mg PO DAILY [facility] Last Admin: 11/09/16 10:58 Dose: 81 mg B12/Folic Ac/Intrin Fact/Iron/Vit C (Niferex-150 Forte -) 1 each PO DAILY [facility] Last Admin: 11/09/16 10:59 Dose: 1 each Cholecalciferol (Vitamin D3 -) 2,000 unit PO DAILY [facility] Last Admin: 11/09/16 10:58 Dose: 2,000 unit Cyanocobalamin (Vitamin B12 Injection -) 1,000 mcg IM DAILY [facility] Last Admin: 11/09/16 10:59 Dose: 1,000 mcg Cyclobenzaprine HCl (Flexeril -) 5 mg PO TID [facility] Last Admin: 11/09/16 14:46 Dose: 5 mg Diltiazem HCl (Cardizem Cd -) 240 mg PO HS [facility] Last Admin: 11/08/16 21:58 Dose: 240 mg Enoxaparin Sodium (Lovenox -) 40 mg SQ DAILY [facility] Last Admin: 11/09/16 10:58 Dose: 40 mg Cefepime HCl 1 gm/ Dextrose 100 mls @ 200 mls/hr IVPB BID [facility] Last Admin: 11/09/16 10:57 Dose: 200 mls/hr Ipratropium [place] (Atrovent 0.02% Nebulizer -) 1 amp NEB Q6HPO [facility] Last Admin: 11/09/16 12:00 Dose: 1 amp Levothyroxine Sodium (Synthroid -) 25 mcg PO ACBK [facility] Last Admin: 11/09/16 06:07 Dose: 25 mcg Montelukast Sodium (Singulair -) 10 mg PO HS [facility] Last Admin: 11/08/16 22:03 Dose: 10 mg Nitroglycerin (Nitrostat -) 0.4 mg SL PRN PRN Non-Formulary Medication (Naloxegol Oxalate [Movantik]) 25 mg PO DAILY [facility] Nortriptyline HCl (Pamelor -) 50 mg PO [facility] Last Admin: 11/08/16 22:02 Dose: 50 mg Ondansetron HCl (Zofran Injection) 4 mg IVPB Q6H PRN PRN Reason: NAUSEA Oxycodone HCl (Roxicodone -) 5 mg PO Q4H PRN PRN Reason: PAIN Last Admin: 11/09/16 10:24 Dose: 5 mg Polyethylene Glycol (Miralax (For Daily Use) -) 17 gm PO BID [facility] Last Admin: 11/09/16 11:00 Dose: 17 grams Potassium Chloride (K-Dur -) 20 meq PO BID [facility] Last Admin: 11/09/16 10:58 Dose: 20 meq Quinapril HCl (Accupril -) 20 mg PO DAILY [facility] Last Admin: 11/09/16 10:59 Dose: 20 mg Ranitidine HCl (Zantac -) 150 mg PO [facility] Last Admin: 11/08/16 22:03 Dose: 150 mg Senna (Senna -) 2 tab PO [facility] Last Admin: 11/08/16 22:03 Dose: Not Given Sertraline HCl (Zoloft -) 100 mg PO DAILY [facility] Last Admin: 11/09/16 10:58 Dose: 100 mg Zolpidem Tartrate (Ambien -) 5 mg PO HS PRN PRN Reason: INSOMNIA Last Admin: 11/08/16 22:05 Dose: 5 mg A/P 76 year old female with a significant past medical history of Migraines, CAD, HTN, mvp, asthma, constipation, diverticulosis, gastritis, GERD, hiatal hernia, irritable bowel disease, peptic ulcer disease, Hypothyroidism, early glaucoma, cervical and lumbar radiculopathy, avascular necrosis of femoral head, who is sent in to the ED with SOB while walking and high blood pressure. Patient states she had surgery on October 13 for a fractured humerus of the right arm at [facility]. She had rt. shoulder replacement 09/25. she was noted to have bibasilar consolidation acute vs chronic Leukopenia: new onset --leukocytosis in 09/25. Mild increase eosinophils/ monocytes Leukopenia noted since 11/02/15 blood cx--staph coag. neg. ? contaminant suspect leukopenia due to meds ? flow/ FISH pending started B12 injections will need f/u as outpatient if leukopenia persistent h/o iron deficiency --noted in 01/2016--ferritin 4 -- noncompliant with ferrex/ vit. c at home due to constipation repeat iron studies anemia--anemia of chronic disease vs iron deficiency repeat ESR/CRP/iron studies will discuss with primary team regarding prior gi w/u
--- NOTE | 2016-11-09 16:51 | PATH ---
Surgical Pathology Report Patient Name: GIOVANI MEDINA [facility]. Rec. #: [id number] /Age/Gender: 1940 (Age: 76) / F Account: [id number] Location: [address] [place] [address] Taken: 11/06/2016 Received: 11/06/2016 Reported: 11/09/2016 Physicians: Diane Salmeron M.D. Specimen(s) Received PERIPHERAL BLOOD Clinical History Leukopenia, r/o MDS Final Diagnosis FLOW CYTOMETRY PERFORMED AND INTERPRETED AT [place], [place] ([id number]) SHOWED THE FOLLOWING: INTERPRETATION: In the sample analyzed there is no evidence of B or T-cell proliferative disorders or increased blasts. Phenotype: In the sample analyzed, there is a mixed population of granulocytes, monocytes and lymphoid cells. CD34+ myeloblasts are < 0.1%. Granulocytes are 74% of total cells. Monocytes are 4% of total cells. There is no overt abnormal myeloid antigen expression. The B-cells ( less than 1% of total) appear polytypic. The T-cells (13% of total) show no holder T-cell antigenic deletion. The TLGLs are 1% of total, the NK cells are 2% of total events. MDS FISH STUDIES PERFORMED AND INTERPRETED AT [place], [place] ([id number]) ARE FOLLOWS: INTERPRETATION: No evidence of deletion 5q or monosomy 5 is present. No evidence of deletion 7q or monosomy 7 is present. No evidence of trisomy8(+8) is present. No evidence of deletion 13q14 is present. No evidence of a rearrangement of 11q23. No evidence of a deletion of the p53 (17p13) locus. No evidence of deletion 20q12 is present. Comments: Correlation with pending cytogenetics ([id number]) is recommended. Electronically Signed Thor Wray M.D. Addendum Reported: 11/11/2016 Addendum Diagnosis CYTOGENETIC KARYOTYPE ANALYSIS PERFORMED AND INTERPRETED AT [place], [place] ([id number]) SHOWED THE FOLLOWED: Test Results: Tissue Culture Failure DIAGNOSTIC INTERPRETATION: This stimulated peripheral blood specimen did not produce any mitotic cells and, therefore, chromosome analysis is not possible. Thor Kamala, M.D. Gross Description Received are 2 green top tubes of blood which are sent [facility]. DL11/06/2016 saudi11/06/2016
[2016-11-09] MEDS: MONTELUKAST NA 10 MG TABLET PO SCH (21:37)
[2016-11-09] MEDS: NORTRIPTYLINE HCL 25 MG CAPSULE PO SCH (21:37)
[2016-11-09] MEDS: SENNOSIDES 8.6MG TABLET (FP) PO SCH (21:37)
[2016-11-09] MEDS: ZOLPIDEM TARTRATE 5 MG TABLET PO PRN (21:37)
[2016-11-09] MEDS: RANITIDINE HCL 150 MG TABLET (FP) PO SCH (21:37)
[2016-11-10] MEDS: IPRATROPIUM BR 0.02% 0.5 MG/2.5 ML VIAL.NEB. NEB SCH ×5 (06:00→23:10)
[2016-11-10] MEDS: LEVOTHYROXINE NA 25 MCG TABLET (FP) PO SCH (06:18)
[2016-11-10] MEDS: CYCLOBENZAPRINE HCL 10 MG TABLET (FP) PO SCH ×3 (06:18→22:02)
[2016-11-10] MEDS: ACETAMINOPHEN 325 MG TABLET (FP) PO PRN ×3 (06:22→21:04)
[2016-11-10] MEDS: oxyCODONE HCL 5 MG TABLET PO PRN ×4 (06:23→23:34)
[2016-11-10 07:49] LABS: BASOPHIL 0.6 % (0-2.0); EOSINOPHIL 3.4 % (0-4.5); MCH 27.6 pg (25.7-33.7); MCHC 32.1 g/dl (32.0-36.0); MEAN PLT VOLUME 8.7 fl (7.5-11.1); NEUTROPHILS 38.2 % (42.8-82.8); PLATELET COUNT 196 K/MM3 (134-434); RDW 21.4 % (11.6-15.6); WHITE BLOOD COUNT 3.1 K/mm3 (4.0-10.0)
[2016-11-10] MEDS: CEFEPIME 1 GM in DEXTROSE 5%-WATER - 100 ML IVPB SCH ×2 (10:12→12:12)
[2016-11-10] MEDS: SERTRALINE HCL 50 MG TABLET (FP) PO SCH (10:58)
[2016-11-10] MEDS: POTASSIUM CHLORIDE TABS 20 MEQ TABLET.ER (FP) PO SCH (10:59)
[2016-11-10] MEDS: ASCORBIC ACID 500 MG TABLET (FP) PO SCH (10:59)
[2016-11-10] MEDS: ASPIRIN 81 MG CHEWABLE TABLETS PO SCH (10:59)
[2016-11-10] MEDS: CHOLECALCIFEROL (VITAMIN D3) 1,000 UNIT TABLET (FP) PO SCH (10:59)
[2016-11-10] MEDS: ENOXAPARIN NA (PORCINE) 40 MG/0.4 ML DISP.SYRIN SQ SCH (11:01)
[2016-11-10] MEDS: CYANOCOBALAMIN (VITAMIN B-12) 1000 MCG/1 ML VIAL IM SCH (11:02)
[2016-11-10] MEDS: POLYETHYLENE GLYCOL 3350 119 GM BTL PO SCH ×2 (11:02→22:02)
[2016-11-10] MEDS: QUINAPRIL HCL 20 MG TABLET (FP) PO SCH (11:23)
[2016-11-10] MEDS: FE POLYSAC/CYANOCOBAL/FA COMBO CAPSULE PO SCH (12:13)
[2016-11-10] MEDS ORDERED: ALPRAZolam 2 MG TABLET PO PRN (12:34)
--- NOTE | 2016-11-10 12:47 | PN ---
Progress Note, Physician Chief Complaint: patient still having some coughing. Had O2 Sat done pre and post ambulation; will check results. History of Present Illness: Patient admitted with Tachycardia and found to have pulmonary infiltrates on CAT Chest. On IV antibiotics but Dr. Ritchie has Rec: D/C and observe. I D/Brendan them today. Other significant issue is WBC count which was improving but went from 3,500 Wednesday to 3,100 today. Will follow again. - Current Medication List Current Medications: Active Medications Acetaminophen (Tylenol -) 650 mg PO Q4H PRN PRN Reason: FEVER OR PAIN Last Admin: 11/10/16 10:59 Dose: 650 mg Albuterol Sulfate (Ventolin 0.083% Nebulizer Soln -) 1 amp NEB Q6H PRN PRN Reason: SHORT OF BREATH/WHEEZING Last Admin: 11/06/16 09:35 Dose: 1 amp Alprazolam (Xanax -) 1 mg PO DAILY PRN PRN Reason: ANXIETY Ascorbic Acid (Vitamin C -) 1,000 mg PO DAILY [facility] Last Admin: 11/10/16 10:59 Dose: 1,000 mg Aspirin (Asa -) 81 mg PO DAILY [facility] Last Admin: 11/10/16 10:59 Dose: 81 mg B12/Folic Ac/Intrin Fact/Iron/Vit C (Niferex-150 Forte -) 1 each PO DAILY [facility] Last Admin: 11/10/16 12:13 Dose: 1 each Cholecalciferol (Vitamin D3 -) 2,000 unit PO DAILY [facility] Last Admin: 11/10/16 10:59 Dose: 2,000 unit Cyanocobalamin (Vitamin B12 Injection -) 1,000 mcg IM DAILY [facility] Last Admin: 11/10/16 11:02 Dose: 1,000 mcg Cyclobenzaprine HCl (Flexeril -) 5 mg PO TID [facility] Last Admin: 11/10/16 06:18 Dose: 5 mg Diltiazem HCl (Cardizem Cd -) 240 mg PO HS [facility] Last Admin: 11/09/16 21:36 Dose: 240 mg Enoxaparin Sodium (Lovenox -) 40 mg SQ DAILY [facility] Last Admin: 11/10/16 11:01 Dose: 40 mg Ipratropium [place] (Atrovent 0.02% Nebulizer -) 1 amp NEB Q6HPO [facility] Last Admin: 11/10/16 11:20 Dose: Not Given Levothyroxine Sodium (Synthroid -) 25 mcg PO ACBK [facility] Last Admin: 11/10/16 06:18 Dose: 25 mcg Montelukast Sodium (Singulair -) 10 mg PO [facility] Last Admin: 11/09/16 21:37 Dose: 10 mg Nitroglycerin (Nitrostat -) 0.4 mg SL PRN PRN Non-Formulary Medication (Naloxegol Oxalate [Movantik]) 25 mg PO DAILY [facility] Nortriptyline HCl (Pamelor -) 50 mg PO [facility] Last Admin: 11/09/16 21:37 Dose: 50 mg Ondansetron HCl (Zofran Injection) 4 mg IVPB Q6H PRN PRN Reason: NAUSEA Oxycodone HCl (Roxicodone -) 5 mg PO Q6H PRN PRN Reason: PAIN Polyethylene Glycol (Miralax (For Daily Use) -) 17 gm PO BID [facility] Last Admin: 11/10/16 11:02 Dose: Not Given Potassium Chloride (K-Dur -) 20 meq PO BID [facility] Last Admin: 11/10/16 10:59 Dose: 20 meq Quinapril HCl (Accupril -) 20 mg PO DAILY [facility] Last Admin: 11/10/16 11:23 Dose: Not Given Ranitidine HCl (Zantac -) 150 mg PO [facility] Last Admin: 11/09/16 21:37 Dose: 150 mg Senna (Senna -) 2 tab PO [facility] Last Admin: 11/09/16 21:37 Dose: Not Given Sertraline HCl (Zoloft -) 100 mg PO DAILY [facility] Last Admin: 11/10/16 10:58 Dose: 100 mg Zolpidem Tartrate (Ambien -) 5 mg PO HS PRN PRN Reason: INSOMNIA Last Admin: 11/09/16 21:37 Dose: 5 mg - Objective Vital Signs: Vital Signs Temperature 98.4 F 11/10/16 10:35 Pulse Rate 116 H 11/10/16 11:30 Respiratory Rate 20 11/10/16 10:35 Blood Pressure 121/50 11/10/16 10:35 O2 Sat by Pulse Oximetry (%) 96 11/10/16 11:30 Constitutional: Yes: Calm, Pallor Cardiovascular: Yes: Regular Rate and Rhythm Respiratory: Yes: Rhonchi (both bases no wheezes) Gastrointestinal: Yes: Soft, Distention, Hypoactive Bowel Sounds. No: Tenderness Genitourinary: No: Garcia Present Extremities: Yes: Other (Sling RUE due to humerus Fx and recent shoulder surgery.) Edema: No Neurological: Yes: Alert, Oriented (Had some letargy this AM; will lower amt. of Xanax and decrease oxycodone fro Q4 to Q6H.) Labs: CBC, BMP 11/10/16 06:45 11/08/16 05:45 INR, PTT INR 1.13 (0.82-1.09) 11/02/16 15:00 Problem List - Problems (1) Community acquired pneumonia Assessment/Plan: Last day of IV Rx today. Still some pulmonary congestion. Code(s): J18.9 - PNEUMONIA, UNSPECIFIED ORGANISM (2) Humeral fracture Assessment/Plan: On Pain Rx PRN Code(s): S42.309A - UNSP FRACTURE OF SHAFT OF HUMERUS, UNSP ARM, INIT Qualifiers: Encounter type: initial encounter Humerus Location: shaft Fracture type: closed Fracture morphology: oblique Fracture alignment: displaced Laterality: right Qualified Code(s): S42.331A - Displaced oblique fracture of shaft of humerus, right arm, initial encounter for closed fracture (3) Asthma Assessment/Plan: No wheezing today. Code(s): J45.909 - UNSPECIFIED ASTHMA, UNCOMPLICATED (4) Hypothyroid Assessment/Plan: On Rx. Code(s): E03.9 - HYPOTHYROIDISM, UNSPECIFIED Qualifiers: Hypothyroidism type: unspecified Qualified Code(s): E03.9 - Hypothyroidism, unspecified (5) Pain Assessment/Plan: On PRN pain Rx Code(s): R52 - PAIN, UNSPECIFIED (6) Hypokalemia Assessment/Plan: corrected. Code(s): E87.6 - HYPOKALEMIA (7) Leukopenia Assessment/Plan: Down from 3.500 to 3,100 today. Will follow. Code(s): D72.819 - DECREASED WHITE BLOOD CELL COUNT, UNSPECIFIED (8) B12 deficiency Assessment/Plan: Getting 1000mcg IM daily. Code(s): E53.8 - DEFICIENCY OF OTHER SPECIFIED B GROUP VITAMINS
[2016-11-10] MEDS: POTASSIUM CHLORIDE TABS 10 MEQ TABLET.ER (FP) PO SCH ×2 (16:15→22:02)
[2016-11-10] MEDS: RANITIDINE HCL 150 MG TABLET (FP) PO SCH (22:02)
[2016-11-10] MEDS: NORTRIPTYLINE HCL 25 MG CAPSULE PO SCH (22:02)
[2016-11-10] MEDS: MONTELUKAST NA 10 MG TABLET PO SCH (22:02)
[2016-11-10] MEDS: SENNOSIDES 8.6MG TABLET (FP) PO SCH (22:03)
--- NOTE | 2016-11-10 23:02 | PN ---
Progress Note, Physician Chief Complaint: Not in distress History of Present Illness: Patient was seen and examined. Awake and alert. Chart was reviewed Denies chest pain or SOB Less cough - Current Medication List Current Medications: Active Medications Acetaminophen (Tylenol -) 650 mg PO Q4H PRN PRN Reason: FEVER OR PAIN Last Admin: 11/10/16 21:04 Dose: 650 mg Albuterol Sulfate (Ventolin 0.083% Nebulizer Soln -) 1 amp NEB Q6H PRN PRN Reason: SHORT OF BREATH/WHEEZING Last Admin: 11/06/16 09:35 Dose: 1 amp Alprazolam (Xanax -) 1 mg PO DAILY PRN PRN Reason: ANXIETY Ascorbic Acid (Vitamin C -) 1,000 mg PO DAILY [facility] Last Admin: 11/10/16 10:59 Dose: 1,000 mg Aspirin (Asa -) 81 mg PO DAILY [facility] Last Admin: 11/10/16 10:59 Dose: 81 mg B12/Folic Ac/Intrin Fact/Iron/Vit C (Niferex-150 Forte -) 1 each PO DAILY [facility] Last Admin: 11/10/16 12:13 Dose: 1 each Cholecalciferol (Vitamin D3 -) 2,000 unit PO DAILY [facility] Last Admin: 11/10/16 10:59 Dose: 2,000 unit Cyanocobalamin (Vitamin B12 Injection -) 1,000 mcg IM DAILY [facility] Last Admin: 11/10/16 11:02 Dose: 1,000 mcg Cyclobenzaprine HCl (Flexeril -) 5 mg PO TID [facility] Last Admin: 11/10/16 22:02 Dose: 5 mg Diltiazem HCl (Cardizem Cd -) 240 mg PO HS [facility] Last Admin: 11/10/16 22:02 Dose: 240 mg Enoxaparin Sodium (Lovenox -) 40 mg SQ DAILY [facility] Last Admin: 11/10/16 11:01 Dose: 40 mg Ipratropium [place] (Atrovent 0.02% Nebulizer -) 1 amp NEB Q6HPO [facility] Last Admin: 11/10/16 17:40 Dose: Not Given Levothyroxine Sodium (Synthroid -) 25 mcg PO ACBK [facility] Last Admin: 11/10/16 06:18 Dose: 25 mcg Montelukast Sodium (Singulair -) 10 mg PO HS [facility] Last Admin: 11/10/16 22:02 Dose: 10 mg Nitroglycerin (Nitrostat -) 0.4 mg SL PRN PRN Non-Formulary Medication (Naloxegol Oxalate [Movantik]) 25 mg PO DAILY [facility] Nortriptyline HCl (Pamelor -) 50 mg PO HS [facility] Last Admin: 11/10/16 22:02 Dose: 50 mg Ondansetron HCl (Zofran Injection) 4 mg IVPB Q6H PRN PRN Reason: NAUSEA Oxycodone HCl (Roxicodone -) 5 mg PO Q6H PRN PRN Reason: PAIN Last Admin: 11/10/16 17:40 Dose: 5 mg Polyethylene Glycol (Miralax (For Daily Use) -) 17 gm PO BID [facility] Last Admin: 11/10/16 22:02 Dose: Not Given Potassium Chloride (K-Dur -) 10 meq PO BID [facility] Last Admin: 11/10/16 22:02 Dose: 10 meq Quinapril HCl (Accupril -) 20 mg PO DAILY [facility] Last Admin: 11/10/16 11:23 Dose: Not Given Ranitidine HCl (Zantac -) 150 mg PO HS [facility] Last Admin: 11/10/16 22:02 Dose: 150 mg Senna (Senna -) 2 tab PO HS [facility] Last Admin: 11/10/16 22:03 Dose: Not Given Sertraline HCl (Zoloft -) 100 mg PO DAILY [facility] Last Admin: 11/10/16 10:58 Dose: 100 mg Zolpidem Tartrate (Ambien -) 5 mg PO HS PRN PRN Reason: INSOMNIA Last Admin: 11/09/16 21:37 Dose: 5 mg - Objective Vital Signs: Vital Signs Temperature 97.9 F 11/10/16 18:00 Pulse Rate 102 H 11/10/16 18:00 Respiratory Rate 20 11/10/16 18:00 Blood Pressure 139/62 11/10/16 18:00 O2 Sat by Pulse Oximetry (%) 92 L 11/10/16 11:30 Neck: Yes: Supple Cardiovascular: Yes: Regular Rate and Rhythm, S1, S2 Respiratory: Yes: Diminished Gastrointestinal: Yes: Normal Bowel Sounds, Soft. No: Tenderness Edema: No Labs: CBC, BMP 11/10/16 06:45 Problem List - Problems (1) Community acquired pneumonia Code(s): J18.9 - PNEUMONIA, UNSPECIFIED ORGANISM (2) Humeral fracture Code(s): S42.309A - UNSP FRACTURE OF SHAFT OF HUMERUS, UNSP ARM, INIT Qualifiers: Encounter type: initial encounter Humerus Location: shaft Fracture type: closed Fracture morphology: oblique Fracture alignment: displaced Laterality: right Qualified Code(s): S42.331A - Displaced oblique fracture of shaft of humerus, right arm, initial encounter for closed fracture (3) HTN (hypertension) Code(s): I10 - ESSENTIAL (PRIMARY) HYPERTENSION Qualifiers: Hypertension type: essential hypertension Qualified Code(s): I10 - Essential (primary) hypertension (4) Hypothyroid Code(s): E03.9 - HYPOTHYROIDISM, UNSPECIFIED Qualifiers: Hypothyroidism type: unspecified Qualified Code(s): E03.9 - Hypothyroidism, unspecified (5) Mitral valve prolapse Code(s): I34.1 - NONRHEUMATIC MITRAL (VALVE) PROLAPSE Assessment/Plan 1. Clinical presentation c/w pneumonia 2. History of MVP 3. Recent right humeral fracture - post repair 4. History of HTN PLAN: 1. Antibiotics completed. ID input noted 2. Bronchodilators, nebulizer,Singulair. 3. Continue Cardizem CD and Quinapril 4. Continue ASA 5. DVT prophylaxis Further plans are to follow Seferino Warner MD
[2016-11-10] MEDS: ZOLPIDEM TARTRATE 5 MG TABLET PO PRN (23:33)
[2016-11-11] MEDS: ACETAMINOPHEN 325 MG TABLET (FP) PO PRN ×2 (01:38→06:32)
[2016-11-11] MEDS: LEVOTHYROXINE NA 25 MCG TABLET (FP) PO SCH (06:30)
[2016-11-11] MEDS: CYCLOBENZAPRINE HCL 10 MG TABLET (FP) PO SCH ×2 (06:30→13:14)
[2016-11-11] MEDS: oxyCODONE HCL 5 MG TABLET PO PRN (06:30)
[2016-11-11] MEDS: IPRATROPIUM BR 0.02% 0.5 MG/2.5 ML VIAL.NEB. NEB SCH ×2 (06:45→11:13)
[2016-11-11 06:56] VITALS: TEMP 98.3
[2016-11-11 07:15] LABS: BASOPHIL 0.5 % (0-2.0); EOSINOPHIL 3.3 % (0-4.5); MCH 27.6 pg (25.7-33.7); MCHC 32.2 g/dl (32.0-36.0); MEAN CELL VOLUME 85.9 fl (80-96); MEAN PLT VOLUME 8.4 fl (7.5-11.1); NEUTROPHILS 37.6 % (42.8-82.8); PLATELET COUNT 196 K/MM3 (134-434); RDW 21.5 % (11.6-15.6); WHITE BLOOD COUNT 3.7 K/mm3 (4.0-10.0)
[2016-11-11 07:32] LABS: CALCIUM 8.7 mg/dL (8.5-10.1); CREATININE 0.7 mg/dL (0.55-1.02)
--- NOTE | 2016-11-11 08:59 | DS ---
Physical Examination Vital Signs: Vital Signs Temperature 98.3 F 11/11/16 06:00 Pulse Rate 91 H 11/11/16 06:00 Respiratory Rate 18 11/11/16 06:00 Blood Pressure 134/67 11/11/16 06:00 O2 Sat by Pulse Oximetry (%) 92 L 11/10/16 22:00 Constitutional: Yes: Calm Cardiovascular: Yes: Regular Rate and Rhythm Respiratory: Yes: Rhonchi (few at bases; rare wheeze) Gastrointestinal: Yes: Soft Renal/: No: Garcia Present Edema: No Neurological: Yes: Alert, Oriented Labs: CBC, BMP 11/11/16 06:30 11/11/16 06:30 Discharge Summary Reason For Visit: PNEUMONIA Current Active Problems Community acquired pneumonia (Acute) HCAP (healthcare-associated pneumonia) (Acute) Hypokalemia (Acute) Leukopenia (Acute) Mitral valve prolapse (Acute) B12 deficiency Acute Procedures: Principal: Chest CAT Scan lab and Xrays Other Procedures: IV antibiotics and Pulmonary consultation Hospital Course: Slow to improve due to congestion and followup on leukopenia; improved to 3, 700 this AM. Condition: Improved - Instructions Diet, Activity, Other Instructions: No added salt in diet. Visit Dr. Rodgers within 2 weeks. Buy over the [id number] sublingual 1000 mcg and take 1 daily Recheck platelet count weekly until better. Otherwise you will need to see the Hematology Dr. Referrals: Jong Rodgers MD [Primary Care Provider] - Santo York MD [Staff Physician] - Disposition: VNS/HOME HEALTH CARE - Home Medications Comprehensive Discharge Medication List: Ambulatory Orders Acetaminophen [Tylenol] 325 mg PO PRN 11/02/16 Ascorbic Acid [C-1000] 1,000 mg PO DAILY 11/02/16 Aspirin [ASA -] 81 mg PO DAILY 11/02/16 Cholecalciferol (Vitamin D3) [Vitamin D3] 2,000 unit PO DAILY 11/02/16 Cyclobenzaprine HCl [Flexeril -] 5 mg PO TID 11/02/16 Dicyclomine HCl [Bentyl -] 10 mg PO ONCE 11/02/16 Diltiazem HCl [Diltiazem 24Hr Cd] 240 mg PO HS 11/02/16 Docusate Sodium [Dok] 100 mg PO ASDIR 11/02/16 Iron Ps Cmplx/Vit B12/FA [Ferrex 150 Forte Capsule] 1 each PO DAILY 11/02/16 Levothyroxine [Synthroid -] 25 mcg PO DAILY 11/02/16 Montelukast Na [Singulair -] 10 mg PO DAILY 11/02/16 Naloxegol Oxalate [Movantik] 25 mg PO DAILY 11/02/16 Nitroglycerin [Nitrostat] 0.4 mg SL PRN 11/02/16 Nortriptyline HCl [Pamelor -] 50 mg PO HS 11/02/16 Ondansetron [Zofran Odt -] 4 mg SL TID 11/02/16 Quinapril HCl [Accupril -] 20 mg PO DAILY 11/02/16 Ranitidine [Zantac -] 150 mg PO HS 11/02/16 Sennosides [Senna -] 2 tab PO HS 11/02/16 Sertraline HCl [Zoloft -] 100 mg PO DAILY 11/02/16 Sumatriptan Succinate [Imitrex -] 100 mg PO PRN 11/02/16 Alprazolam [Xanax] 1 mg PO DAILY PRN #0 tablet MDD 1 11/10/16 Oxycodone HCl [Roxicodone -] 5 mg PO TID #0 11/10/16 Polyethylene Glycol 3350 [Miralax 119 gm Btl -] 17 gm PO BID bottle 11/10/16 Potassium Chloride [K-Dur -] 10 meq PO BID tablet.er 11/10/16 Zolpidem Tartrate [Ambien] 5 mg PO HS #0 11/10/16 Prednisone [Deltasone -] 10 mg PO BID tablet 11/11/16
[2016-11-11] MEDS ORDERED: PT OWN MED DRAWER 7, Y5N ONE (09:33)
[2016-11-11] MEDS: ASPIRIN 81 MG CHEWABLE TABLETS PO SCH (09:34)
[2016-11-11] MEDS: ASCORBIC ACID 500 MG TABLET (FP) PO SCH (09:34)
[2016-11-11] MEDS: SERTRALINE HCL 50 MG TABLET (FP) PO SCH (09:34)
[2016-11-11] MEDS: CHOLECALCIFEROL (VITAMIN D3) 1,000 UNIT TABLET (FP) PO SCH (09:35)
[2016-11-11] MEDS: POTASSIUM CHLORIDE TABS 10 MEQ TABLET.ER (FP) PO SCH (09:35)
[2016-11-11] MEDS: FE POLYSAC/CYANOCOBAL/FA COMBO CAPSULE PO SCH (09:36)
[2016-11-11] MEDS: QUINAPRIL HCL 20 MG TABLET (FP) PO SCH (09:36)
[2016-11-11] MEDS: ENOXAPARIN NA (PORCINE) 40 MG/0.4 ML DISP.SYRIN SQ SCH (09:36)
[2016-11-11] MEDS: CYANOCOBALAMIN (VITAMIN B-12) 1000 MCG/1 ML VIAL IM SCH (09:37)
[2016-11-11] MEDS: POLYETHYLENE GLYCOL 3350 119 GM BTL PO SCH (09:38)
[2016-11-11] MEDS ORDERED: predniSONE 10 MG TABLET (UD) PO SCH (10:00)
[2016-11-11 10:28] VITALS: PULSE 90
[2016-11-11 13:29] VITALS: BP 124/70
== END 2016-11-11 13:33 | disposition home health service (06) | DRG 194 ==
LOC: JER 14:23 → JERBED 19:56 → UNDOADMIN 19:56 → JERBED 20:12 → JICU 11-03 09:34 → J5S 11-04 17:35
PROVIDERS: ADMIT Internal Medicine; ATTEND Internal Medicine
DX: J18.9 Pneumonia, unspecified organism (principal); M87.859 Other osteonecrosis, unspecified femur; I25.10 Atherosclerotic heart disease of native coronary artery without angina pectoris; G43.909 Migraine, unspecified, not intractable, without status migrainosus; E87.6 Hypokalemia; I10 Essential (primary) hypertension; J45.909 Unspecified asthma, uncomplicated; K57.90 Diverticulosis of intestine, part unspecified, without perforation or abscess without bleeding; K29.60 Other gastritis without bleeding; K21.9 Gastro-esophageal reflux disease without esophagitis; K44.9 Diaphragmatic hernia without obstruction or gangrene; K27.9 Peptic ulcer, site unspecified, unspecified as acute or chronic, without hemorrhage or perforation; K58.9 Irritable bowel syndrome, unspecified; E03.9 Hypothyroidism, unspecified; H40.9 Unspecified glaucoma; M54.12 Radiculopathy, cervical region; Y95 Nosocomial condition; I34.1 Nonrheumatic mitral (valve) prolapse; D64.9 Anemia, unspecified; E53.8 Deficiency of other specified B group vitamins; D72.819 Decreased white blood cell count, unspecified; D50.9 Iron deficiency anemia, unspecified
CPT/HCPCS: 36415; 71010-TC; 71275-TC; 80048; 80053; 82550; 82607; 82728; 82747; 83540; 83550; 83615; 83735; 84100; 84439; 84443; 84481; 84484; 85014; 85025; 85379; 85610; 85651; 86140; 87040; 87186; 87899; 88300-TC; 93005; 93010; 93306-TC; 94010; 94640; 94667; 94761; 97116-GP; 99285-25

== ENCOUNTER 2016-12-02 12:03 | Observation (INO) | payer OTHER ==
[2016-12-02 12:28] VITALS: BMI 30.1
[2016-12-02] MEDS ORDERED: ASPIRIN 81 MG CHEWABLE TABLETS PO ONE (12:49)
[2016-12-02] MEDS ORDERED: SODIUM CHLORIDE 500 ML IV STA (12:50)
[2016-12-02] MEDS ORDERED: ASPIRIN 81 MG CHEWABLE TABLETS ONE (12:53)
--- NOTE | 2016-12-02 12:53 | PDOC ---
History of Present Illness <TeddyJuanita - Last Filed: 12/02/16 14:49> - General History Source: Patient Exam Limitations: No Limitations - History of Present Illness Initial Comments: 12/02/16 12:53 76y F hx of cad, htn, mvp, asthma, migraines, gastritis, gerd, ibs, pud, presents with dizziness and presyncope since this morning. The pt states that last, when she awoke she felt dizzy/lightheaded, when she walked to the bathroom (~50ft) she endorses feeling like she was about to pass out. The pt did endorse feeling diaphoretic and slightly nauseus during this, she also endorses some L arm pain for about 2 days - denies any sob, cough, vomiting, abd pain, new diarrhea (has chronic diarrhea due to intestinal problems, but nothing new, no melena, bpr), efver/chills, cough, CMDERMOTT, chest pain, neck pain, headache. pt states she took a meclizine for her dizzines today, but states her dizziness is not the same as her prior vertigo, pt denies any current vision changes but did say that her vision was itnermittently darkening yesterday. No associated numbness/tingling/weakness of her extremities. <KatalinaCarrillo - Last Filed: 12/02/16 15:29> - General Chief Complaint: Lightheaded Stated Complaint: DIZZINESS Time Seen by Provider: 12/02/16 12:26 Past History <EspinalJohnJuanita - Last Filed: 12/02/16 14:49> - Past Medical History Anemia: Yes Asthma: Yes (NO RECENT ATTACK) Cancer: No Cardiac Disorders: Yes (,MITRAL VALVE PROLAPSE) CVA: No COPD: No CHF: No Dementia: No Diabetes: No GI Disorders: Yes (H/O COLON POLYPS, acid reflux) Disorders: No HTN: Yes Hypercholesterolemia: No Liver Disease: Yes (NON ALCOHOLIC FATTY LIVER) Seizures: No Thyroid Disease: Yes - Surgical History Abdominal Surgery: Yes (SX FOR OBSTRUCTIONS AND ADHESIONS x 51 times) Appendectomy: Yes Cardiac Surgery: No Cholecystectomy: Yes GI Surgery: Yes Lung Surgery: No Neurologic Surgery: No Orthopedic Surgery: No (r shoulder replacement, then humerus fracture repair) - Immunization History Immunization Up to Date: Yes - Psycho/Social/Smoking Cessation Hx Anxiety: No Suicidal Ideation: No Smoking Status: No Smoking History: Never smoked Have you smoked in the past 12 months: No Number of Cigarettes Smoked Daily: 0 Information on smoking cessation initiated: No Hx Alcohol Use: No Drug/Substance Use Hx: No Substance Use Type: None Hx Substance Use Treatment: No <Carrillo Darden - Last Filed: 12/02/16 15:29> - Past Medical History Allergies/Adverse Reactions: Allergies Allergy/AdvReac Type Severity Reaction Status Date / Time metronidazole [From Flagyl] Allergy Intermediate Swelling Verified 12/02/16 12: 28 lactose AdvReac Verified 12/02/16 12:28 fresh fruit Allergy Vomiting Uncoded 12/02/16 12:28 fresh vegetables Allergy Uncoded 12/02/16 12:28 Home Medications: Ambulatory Orders Acetaminophen [Tylenol] 325 mg PO PRN 11/02/16 Ascorbic Acid [C-1000] 1,000 mg PO DAILY 11/02/16 Aspirin [ASA -] 81 mg PO DAILY 11/02/16 Cholecalciferol (Vitamin D3) [Vitamin D3] 2,000 unit PO DAILY 11/02/16 Cyclobenzaprine HCl [Flexeril -] 5 mg PO TID 11/02/16 Dicyclomine HCl [Bentyl -] 10 mg PO ONCE 11/02/16 Diltiazem HCl [Diltiazem 24Hr Cd] 240 mg PO HS 11/02/16 Docusate Sodium [Dok] 100 mg PO ASDIR 11/02/16 Iron Ps Cmplx/Vit B12/FA [Ferrex 150 Forte Capsule] 1 each PO DAILY 11/02/16 Levothyroxine [Synthroid -] 25 mcg PO DAILY 11/02/16 Montelukast Na [Singulair -] 10 mg PO DAILY 11/02/16 Naloxegol Oxalate [Movantik] 25 mg PO DAILY 11/02/16 Nitroglycerin [Nitrostat] 0.4 mg SL PRN 11/02/16 Nortriptyline HCl [Pamelor -] 50 mg PO HS 11/02/16 Ondansetron [Zofran Odt -] 4 mg SL TID 11/02/16 Quinapril HCl [Accupril -] 20 mg PO DAILY 11/02/16 Ranitidine [Zantac -] 150 mg PO HS 11/02/16 Sennosides [Senna -] 2 tab PO HS 11/02/16 Sertraline HCl [Zoloft -] 100 mg PO DAILY 11/02/16 Sumatriptan Succinate [Imitrex -] 100 mg PO PRN 11/02/16 Alprazolam [Xanax] 1 mg PO DAILY PRN #0 tablet MDD 1 11/10/16 Oxycodone HCl [Roxicodone -] 5 mg PO TID #0 11/10/16 Polyethylene Glycol 3350 [Miralax 119 gm Btl -] 17 gm PO BID bottle 11/10/16 Potassium Chloride [K-Dur -] 10 meq PO BID tablet.er 11/10/16 Zolpidem Tartrate [Ambien] 5 mg PO HS #0 11/10/16 Prednisone [Deltasone -] 10 mg PO BID tablet 11/11/16 Review of Systems - Review of Systems Able to Perform ROS?: Yes Comments:: 12/02/16 12:59 Constitutional - no reported Fever, Chills, weakness, HEENT: no reported vision changes, sore throat Respiratory: no reported cough, sob, hemoptysis Cardiac: +lightheaded/dizzy no reported chest pain, palpitations,leg swelling Abd/GI: + nausea, no reported abd pain, vomiting, blood per rectum, melena, diarrhea : no reported dysuria, frequency, discharge Musculskelatal - no reported back pain, joint swelling skin - no reported bruising, erythema, rash neurological: +vision changes yesterday no reported headache, numbness, focal weakness, tingling, ataxia, weakness hematologic: no reported anemia, easy bruising, easy bleeding <Katalina,Carrillo - Last Filed: 12/02/16 15:29> *Physical Exam - Vital Signs Last Vital Signs Temp Pulse Resp BP Pulse Ox 98.0 F 90 20 91/62 98 12/02/16 12:25 12/02/16 12:25 12/02/16 12:25 12/02/16 12:25 12/02/16 12:25 <Juanita Espinal - Last Filed: 12/02/16 14:49> - Vital Signs Last Vital Signs Temp Pulse Resp BP Pulse Ox 98.0 F 90 20 91/62 98 12/02/16 12:25 12/02/16 12:25 12/02/16 12:25 12/02/16 12:25 12/02/16 12:25 - Physical Exam Comments: 12/02/16 13:00 GENERAL: The patient is awake, alert, and fully oriented, Nontoxic - in no acute distress. HEAD: Normocephalic, atraumatic. EYES: extraocular movements intact, sclera anicteric, conjunctiva clear. ENT: Normal voice, Moist mucous membranes. NECK: Normal range of motion, supple LUNGS: Breath sounds equal, clear to auscultation bilaterally. No wheezes, no rhonchi, no rales. HEART: Regular rate and rhythm, normal S1 and S2 without murmur, rub or gallop. ABDOMEN: +pump in the RLQ, Soft, nontender, normoactive bowel sounds. No guarding, no rebound. . No CVA tenderness EXTREMITIES: Normal range of motion, +RLE edema. No clubbing or cyanosis. No cords, erythema, or tenderness. NEUROLOGICAL: No facial assymetry, Normal speech, PSYCH: Normal mood, normal affect. SKIN: Warm, Dry, normal turgor, General Appearance: Yes: Nourished <Carrillo Darden - Last Filed: 12/02/16 15:29> Heart Score/ECG Review - ECG Impressions Comment:: 12/02/16 13:01 Twelve-lead EKG was performed and reviewed by me. There is normal sinus rhythm with a normal rate. Rate of 103 The axis is normal. The intervals are normal. There is normal R wave progression There are no ST or T wave abnormalities. Impression: Sinus tachycardia <Carrillo Darden - Last Filed: 12/02/16 15:29> ED Treatment Course - LABORATORY CBC & Chemistry Diagram: 12/02/16 12:50 12/02/16 12:50 - ADDITIONAL ORDERS Additional order review: Laboratory Results 12/02/16 12/02/16 12:50 12:50 INR 0.99 Sodium 141 Potassium 4.0 Chloride 101 Carbon Dioxide 31 Anion Gap 9 BUN 9 Creatinine 0.8 Creat Clearance w eGFR > 60 Random Glucose 127 H D Calcium 9.2 Magnesium 1.4 L D Total Bilirubin 0.3 D AST 10 L D ALT 11 L Alkaline Phosphatase 96 Creatine Kinase 27 Troponin I < 0.02 Total Protein 6.9 Albumin 3.7 D 12/02/16 12:50 RBC 4.48 MCV 88.3 MCHC 31.7 L RDW 20.5 H MPV 9.0 Neutrophils % 83.2 H D Lymphocytes % 9.8 D Monocytes % 5.6 Eosinophils % 1.2 Basophils % 0.2 - Medications Given in the ED: ED Medications Discontinued Medications Generic Name Dose Route Start Last Admin Trade Name Alejandra PRN Reason Stop Dose Admin Aspirin 162 mg 12/02/16 12:49 12/02/16 12:55 Asa - PO 12/02/16 12:50 162 mg ONCE ONE Administration Sodium Chloride 500 mls @ 500 mls/hr 12/02/16 12:50 12/02/16 12:55 Normal Saline - IV 12/02/16 13:49 500 mls/hr ASDIR STA Administration <Juanita Espinal - Last Filed: 12/02/16 14:49> - LABORATORY CBC & Chemistry Diagram: 12/02/16 12:50 12/02/16 12:50 - RADIOLOGY Radiology Studies Ordered: Category Date Time Status CHEST PA & LAT [RAD] Stat Radiology 12/02/16 12:49 Ordered <Carrillo Darden - Last Filed: 12/02/16 15:29> Medical Decision Making - Medical Decision Making 12/02/16 14:[address] Darius Sosa. <Juanita Espinal - Last Filed: 12/02/16 14:49> - Medical Decision Making 12/02/16 13:01 76y F hx of multiple medical problems presenting with complaint if dizziness last night and feeling of presyncope associated with diaphoresis, left arm pain as well as intermittent flickering vision. exam unremarkable here and pt states she is feeling improved. the pts HR did go from 100-120 when I sat her up to examine her lung. ?orhostasis? _swelling in the LLE with negative homans - will obtain dvt study differential for the pts symptoms includes possible acs, anemia, metabolic dernagement, cva, arrythmia, dehydration,occult infection (pt treated with levaquin recently and just completed her abx). the pts ekg shows sinus tac with nonspecific changes 12/02/16 13:22 12/02/16 15:04 pts labs reviewed unremarkable cxr shows ?infiltrate on RLL, however she appears to have the same atelectasis like process on her prior cxr and doesnt have sypmtoms consistent with pna including cough, sob, fevers, leukocytosis - and her cxr from previous hospitalization shows a similar atelectatic lesion in the RLL pt states she has had a problem with hypoxia awaiting US to r/o dVT in LLE case d/w dr. sosa agree with admission will admit to tele Case discussed in detail with admitting physician including history, physical exam and ancillary studies. Admitting physician has assumed care for the patient, will follow all pending diagnostics and will complete the evaluation and treatment. <Carrillo Darden - Last Filed: 12/02/16 15:29> *DC/Admit/Observation/Transfer <Juanita Espinal - Last Filed: 12/02/16 14:49> - Discharge Dispostion Admit: Yes <Carrillo Darden - Last Filed: 12/02/16 15:29> Diagnosis at time of Disposition: Weakness, Hypomagnesemia, Pre-syncope - Discharge Dispostion Condition at time of disposition: Guarded - Referrals
[2016-12-02 13:12] LABS: BASOPHIL 0.2 % (0-2.0); EOSINOPHIL 1.2 % (0-4.5); MCHC 31.7 g/dl (32.0-36.0); MEAN CELL VOLUME 88.3 fl (80-96); NEUTROPHILS 83.2 % (42.8-82.8); PLATELET COUNT 212 K/MM3 (134-434); RDW 20.5 % (11.6-15.6); WHITE BLOOD COUNT 7.1 K/mm3 (4.0-10.0)
[2016-12-02 13:54] LABS: ALBUMIN 3.7 g/dl (3.4-5.0); ANION GAP 9 (8-16); BILIRUBIN,TOTAL 0.3 mg/dL (0.2-1.0); CALCIUM 9.2 mg/dL (8.5-10.1); CO2 31 mmol/L (21-32); CREATININE 0.8 mg/dL (0.55-1.02); GLUCOSE,RANDOM 127 mg/dL (74-106); MAGNESIUM 1.4 mg/dL (1.8-2.4); SGOT/AST 10 U/L (15-37); SGPT/ALT 11 U/L (12-78); TOT PROT 6.9 g/dl (6.4-8.2)
[2016-12-02 13:57] LABS: ALK PHOS 96 U/L (45-117); TROPONIN I < 0.02 ng/ml (0.00-0.05)
[2016-12-02] MEDS ORDERED: MAGNESIUM SULF 50% (8.12 MEQ/2 ML-1 GM VIAL) IVPB ONE ×2 (14:03→15:14)
[2016-12-02 14:21] LABS: INR 0.99 (0.82-1.09); PROTHROMBIN TIME (PATIENT) 10.9 SEC (9.98-11.88)
[2016-12-02] MEDS ORDERED: MAGNESIUM SULF 50% (8.12 MEQ/2 ML-1 GM VIAL) ONE (14:57)
[2016-12-02] MEDS ORDERED: NITROGLYCERIN SUBLINGUAL 1/150 0.4 MG TAB SL PRN (15:45)
[2016-12-02] MEDS ORDERED: ACETAMINOPHEN 325 MG TABLET (FP) PO SCH (15:45)
[2016-12-02] MEDS ORDERED: ONDANSETRON 4 MG/2 ML VIAL IVPB PRN (15:48)
[2016-12-02] MEDS ORDERED: ACETAMINOPHEN 325 MG TABLET (FP) PO PRN (15:48)
--- NOTE | 2016-12-02 15:53 | HP ---
Admitting History and Physical - Primary Care Physician PCP: Jong Rodgers - Admission Chief Complaint: I'm dizzy History of Present Illness: Ms Moreland is a very pleasant 76 year old female who comes in after being found to have elevated blood pressure and heart rate by her home PT. She says over the past 3 days she has been feeling dizzy. It's hard to distinguish whether this is vertigo or lightheadedness, as she describes it as both. She does not notice if it is associated with activity. Sometimes she says it won't happen for a day and other times it happens very frequently. She says she was working with PT this morning and she began to feel dizzy. Her vital signs were checked and she was noted to be hypertensive and tachycardic. For this reason she was told to come in. She denies fevers, chills, passing out, chest pain, shortness of breath, nausea, vomiting, diarrhea, constipation, or leg swelling. She says she has pain in her left arm, mainly when she extends it. The pain is located in her bicep and can be reproduced with palpation. Currently she is feeling fine but is concerned that something might be wrong. 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) Renal/: Yes: UTI Psych: Yes: Anxiety Musculoskeletal: Yes: Chronic low back pain, Osteoarthritis Endocrine: Yes: Hypothyroidism - Past Surgical History Past Surgical History: Yes: Appendectomy, Cataract Removal, Cholecystectomy, Colectomy, Colonoscopy, Oopherectomy - Smoking History Smoking history: Never smoked Have you smoked in the past 12 months: No Aproximately how many cigarettes per day: 0 - Alcohol/Substance Use Hx Alcohol Use: No History of Substance Use: reports: None - Social History ADL: Independent 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 History of Recent Travel: No Home Medications - Allergies Allergies/Adverse Reactions: Allergies Allergy/AdvReac Type Severity Reaction Status Date / Time metronidazole [From Flagyl] Allergy Intermediate Swelling Verified 12/02/16 12: 28 lactose AdvReac Verified 12/02/16 12:28 fresh fruit Allergy Vomiting Uncoded 12/02/16 12:28 fresh vegetables Allergy Uncoded 12/02/16 12:28 - Home Medications Home Medications: Ambulatory Orders Acetaminophen [Tylenol] 325 mg PO PRN 11/02/16 Ascorbic Acid [C-1000] 1,000 mg PO DAILY 11/02/16 Aspirin [ASA -] 81 mg PO DAILY 11/02/16 Cholecalciferol (Vitamin D3) [Vitamin D3] 2,000 unit PO DAILY 11/02/16 Cyclobenzaprine HCl [Flexeril -] 5 mg PO TID 11/02/16 Dicyclomine HCl [Bentyl -] 10 mg PO ONCE 11/02/16 Diltiazem HCl [Diltiazem 24Hr Cd] 240 mg PO HS 11/02/16 Docusate Sodium [Dok] 100 mg PO ASDIR 11/02/16 Iron Ps Cmplx/Vit B12/FA [Ferrex 150 Forte Capsule] 1 each PO DAILY 11/02/16 Levothyroxine [Synthroid -] 25 mcg PO DAILY 11/02/16 Montelukast Na [Singulair -] 10 mg PO DAILY 11/02/16 Naloxegol Oxalate [Movantik] 25 mg PO DAILY 11/02/16 Nitroglycerin [Nitrostat] 0.4 mg SL PRN 11/02/16 Nortriptyline HCl [Pamelor -] 50 mg PO HS 11/02/16 Ondansetron [Zofran Odt -] 4 mg SL TID 11/02/16 Quinapril HCl [Accupril -] 20 mg PO DAILY 11/02/16 Ranitidine [Zantac -] 150 mg PO HS 11/02/16 Sennosides [Senna -] 2 tab PO HS 11/02/16 Sertraline HCl [Zoloft -] 100 mg PO DAILY 11/02/16 Sumatriptan Succinate [Imitrex -] 100 mg PO PRN 11/02/16 Alprazolam [Xanax] 1 mg PO DAILY PRN #0 tablet MDD 1 11/10/16 Oxycodone HCl [Roxicodone -] 5 mg PO TID #0 11/10/16 Polyethylene Glycol 3350 [Miralax 119 gm Btl -] 17 gm PO BID bottle 11/10/16 Potassium Chloride [K-Dur -] 10 meq PO BID tablet.er 11/10/16 Zolpidem Tartrate [Ambien] 5 mg PO HS #0 11/10/16 Prednisone [Deltasone -] 10 mg PO BID tablet 11/11/16 Family Disease History - Family Disease History Family Disease History: CA: Father (lung), Mother (breast) Review of Systems Findings/Remarks: Full review of systems obtained, as per HPI and otherwise negative Physical Examination Vital Signs: Vital Signs Temperature 98.0 F 12/02/16 12:25 Pulse Rate 80 12/02/16 15:17 Respiratory Rate 20 12/02/16 15:17 Blood Pressure 104/47 12/02/16 15:17 O2 Sat by Pulse Oximetry (%) 94 L 12/02/16 15:17 Constitutional: Yes: Well Nourished, No Distress, Calm Eyes: Yes: Conjunctiva Clear, EOM Intact HENT: Yes: Atraumatic, Normocephalic Cardiovascular: Yes: Tachycardia (slight). No: Gallop, Murmur, Rub Respiratory: Yes: Regular, CTA Bilaterally. No: Rales, Rhonchi, Wheezes Gastrointestinal: Yes: Normal Bowel Sounds, Soft. No: Distention, Tenderness Extremities: Yes: WNL Edema: Yes Edema: LLE: Trace Labs: Laboratory Results - last 24 hr 12/02/16 12/02/16 12/02/16 12:50 12:50 12:50 WBC 7.1 D RBC 4.48 Hgb 12.5 D Hct 39.5 MCV 88.3 MCHC 31.7 L RDW 20.5 H Plt Count 212 MPV 9.0 Neutrophils % 83.2 H D Lymphocytes % 9.8 D Monocytes % 5.6 Eosinophils % 1.2 Basophils % 0.2 INR 0.99 Sodium 141 Potassium 4.0 Chloride 101 Carbon Dioxide 31 Anion Gap 9 BUN 9 Creatinine 0.8 Creat Clearance w eGFR > 60 Random Glucose 127 H D Calcium 9.2 Magnesium 1.4 L D Total Bilirubin 0.3 D AST 10 L D ALT 11 L Alkaline Phosphatase 96 Creatine Kinase 27 Troponin I < 0.02 Total Protein 6.9 Albumin 3.7 D Imaging - Results Chest X-ray: Report Reviewed, Image Reviewed Cat Scan: Report Reviewed Problem List - Problems (1) Pre-syncope Assessment/Plan: -patient describes symptoms most consistent with pre-syncope -will admit to telemetry under observation -consult cardiology -ortostatics -gentle hydration -PT consult and fall precautions Code(s): R55 - SYNCOPE AND COLLAPSE (2) Asthma Assessment/Plan: -controlled -ER physician noted hypoxia, however my observation patient is saturating well on RA -chest x-ray reviewed and official read noted, however low suspicion for pneumonia and looks unchanged -will continue home regimen -if becomes hypoxic, consult pulmonary Code(s): J45.909 - UNSPECIFIED ASTHMA, UNCOMPLICATED (3) HTN (hypertension) Assessment/Plan: -patient states she was hypertensive at home -however hypotensive here with response to fluid -? dehydration -will continue blood pressure medications with hold parameters Code(s): I10 - ESSENTIAL (PRIMARY) HYPERTENSION Qualifiers: Hypertension type: essential hypertension Qualified Code(s): I10 - Essential (primary) hypertension (4) Hypothyroid Assessment/Plan: -continue synthroid Code(s): E03.9 - HYPOTHYROIDISM, UNSPECIFIED Qualifiers: Hypothyroidism type: unspecified Qualified Code(s): E03.9 - Hypothyroidism, unspecified
[2016-12-02] MEDS ORDERED: SUMAtriptan SUCCINATE 50 MG TABLET PO PRN (16:00)
--- NOTE | 2016-12-02 16:04 | EKG ---
Test Reason : Blood Pressure : / mmHG Vent. Rate : 103 BPM Atrial Rate : 103 BPM P-R Int : 146 ms QRS Dur : 086 ms QT Int : 334 ms P-R-T Axes : 062 007 039 degrees QTc Int : 437 ms SINUS TACHYCARDIA LOW VOLTAGE QRS BORDERLINE ECG WHEN COMPARED WITH ECG OF 04-NOV-2016 09:09, NO SIGNIFICANT CHANGE WAS FOUND Confirmed by KEVIN CLARK MD ([id number]) on 12/02/2016 4:04:19 PM Referred By: Confirmed By:KEVIN CLARK MD
[2016-12-02] MEDS: SODIUM CHLORIDE 1,000 ML IV SCH ×2 (18:21→22:49)
[2016-12-02] MEDS ORDERED: NORTRIPTYLINE HCL 50 MG CAPSULE PO SCH (22:00)
[2016-12-02] MEDS: CYCLOBENZAPRINE HCL 10 MG TABLET (FP) PO SCH (22:08)
[2016-12-02] MEDS: POTASSIUM CHLORIDE TABS 10 MEQ TABLET.ER (FP) PO SCH (22:12)
[2016-12-02] MEDS: POLYETHYLENE GLYCOL 3350 119 GM BTL PO SCH (22:12)
[2016-12-02] MEDS: RANITIDINE HCL 150 MG TABLET (FP) PO SCH (22:13)
[2016-12-02] MEDS: SENNOSIDES 8.6MG TABLET (FP) PO SCH (22:13)
[2016-12-02] MEDS: NORTRIPTYLINE HCL 25 MG CAPSULE PO SCH (22:16)
[2016-12-02] MEDS: ZOLPIDEM TARTRATE 5 MG TABLET PO PRN (22:16)
[2016-12-02 23:28] LABS: TROPONIN I < 0.02 ng/ml (0.00-0.05)
[2016-12-03] MEDS: oxyCODONE HCL 5 MG TABLET PO PRN ×2 (02:49→16:30)
[2016-12-03] MEDS: LEVOTHYROXINE NA 25 MCG TABLET (FP) PO SCH (06:12)
[2016-12-03] MEDS: CYCLOBENZAPRINE HCL 10 MG TABLET (FP) PO SCH ×3 (06:12→21:21)
[2016-12-03 07:31] LABS: BASOPHIL 0.2 % (0-2.0); EOSINOPHIL 6.8 % (0-4.5); MCH 28.2 pg (25.7-33.7); MCHC 32.1 g/dl (32.0-36.0); MEAN PLT VOLUME 8.7 fl (7.5-11.1); NEUTROPHILS 61.3 % (42.8-82.8); PLATELET COUNT 192 K/MM3 (134-434); RDW 20.3 % (11.6-15.6); WHITE BLOOD COUNT 5.3 K/mm3 (4.0-10.0)
[2016-12-03 08:10] LABS: ANION GAP 8 (8-16); CALCIUM 8.8 mg/dL (8.5-10.1); CO2 30 mmol/L (21-32); CREATININE 0.7 mg/dL (0.55-1.02); GLUCOSE,RANDOM 106 mg/dL (74-106); MAGNESIUM 1.7 mg/dL (1.8-2.4); PHOSPHOROUS 3.3 mg/dL (2.5-4.9)
[2016-12-03 08:43] LABS: TROPONIN I < 0.02 ng/ml (0.00-0.05)
--- NOTE | 2016-12-03 08:45 | PN ---
Progress Note, Physician Chief Complaint: Dizzy and weak; ? vertigo; History of Present Illness: patient with recent bilateral pneumonia comes back to ER after a call from Nurse at home Re: Persisting high HR and O2sat 88 after walk and severe dizzyness" always ready ti fall". Issue with ? new infiltrate on CXR and why persisting tachycardia and dizzyness. She cant have MRI due to indwelling pain pump. - Current Medication List Current Medications: Active Medications Acetaminophen (Tylenol -) 650 mg PO Q4H PRN PRN Reason: FEVER OR PAIN Alprazolam (Xanax -) 1 mg PO DAILY PRN PRN Reason: ANXIETY Ascorbic Acid (Vitamin C -) 1,000 mg PO DAILY PENDING SALE TO [facility] Aspirin (Asa -) 81 mg PO DAILY PENDING SALE TO [facility] B12/Folic Ac/Intrin Fact/Iron/Vit C (Niferex-150 Forte -) 1 each PO DAILY PENDING SALE TO [facility] Cholecalciferol (Vitamin D3 -) 2,000 unit PO DAILY PENDING SALE TO [facility] Cyclobenzaprine HCl (Flexeril -) 5 mg PO TID PENDING SALE TO [facility] Last Admin: 12/03/16 06:12 Dose: 5 mg Diltiazem HCl (Cardizem Cd -) 240 mg PO HS PENDING SALE TO [facility] Last Admin: 12/02/16 22:12 Dose: 240 mg Sodium Chloride (Normal Saline -) 1,000 mls @ 42 mls/hr IV ASDIR PENDING SALE TO [facility] Last Admin: 12/02/16 22:49 Dose: 42 mls/hr Levothyroxine Sodium (Synthroid -) 25 mcg PO DAILY@0700 PENDING SALE TO [facility] Last Admin: 12/03/16 06:12 Dose: 25 mcg Montelukast Sodium (Singulair -) 10 mg PO DAILY PENDING SALE TO [facility] Nitroglycerin (Nitrostat -) 0.4 mg SL Q5M PRN PRN Reason: CHEST PAIN Non-Formulary Medication (Naloxegol Oxalate [Movantik]) 25 mg PO DAILY PENDING SALE TO [facility] Nortriptyline HCl (Pamelor -) 50 mg PO HS PENDING SALE TO [facility] Last Admin: 12/02/16 22:16 Dose: 50 mg Ondansetron HCl (Zofran Injection) 4 mg IVPB Q6H PRN PRN Reason: NAUSEA Oxycodone HCl (Roxicodone -) 5 mg PO Q6H PRN PRN Reason: PAIN Last Admin: 12/03/16 02:49 Dose: 5 mg Polyethylene Glycol (Miralax (For Daily Use) -) 17 gm PO BID PENDING SALE TO [facility] Last Admin: 12/02/16 22:12 Dose: Not Given Potassium Chloride (K-Dur -) 10 meq PO BID PENDING SALE TO [facility] Last Admin: 12/02/16 22:12 Dose: 10 meq Quinapril HCl (Accupril -) 20 mg PO DAILY PENDING SALE TO [facility] Ranitidine HCl (Zantac -) 150 mg PO HS PENDING SALE TO [facility] Last Admin: 12/02/16 22:13 Dose: 150 mg Senna (Senna -) 2 tab PO HS PENDING SALE TO [facility] Last Admin: 12/02/16 22:13 Dose: Not Given Sertraline HCl (Zoloft -) 100 mg PO DAILY PENDING SALE TO [facility] Sumatriptan Succinate (Imitrex -) 100 mg PO PRN PRN PRN Reason: MIGRAINE Zolpidem Tartrate (Ambien -) 5 mg PO HS PRN PRN Reason: INSOMNIA Last Admin: 12/02/16 22:16 Dose: 5 mg - Objective Vital Signs: Vital Signs Temperature 98.1 F 12/03/16 05:39 Pulse Rate 96 H 12/03/16 05:39 Respiratory Rate 18 12/03/16 05:39 Blood Pressure 120/59 12/03/16 05:39 O2 Sat by Pulse Oximetry (%) 99 12/03/16 02:00 Constitutional: Yes: Calm, Pallor Cardiovascular: Yes: Tachycardia Respiratory: Yes: Regular. No: Rales, Wheezes Gastrointestinal: Yes: Soft Edema: LLE: Trace, RLE: 1+ Labs: CBC, BMP 12/03/16 05:35 12/03/16 05:35 INR, PTT INR 0.99 (0.82-1.09) 12/02/16 12:50 Problem List - Problems (1) Pre-syncope Assessment/Plan: Vertigo also; to get ENT consult. Code(s): R55 - SYNCOPE AND COLLAPSE (2) Weakness Assessment/Plan: ? due to magnesium; being corrected. Code(s): R53.1 - WEAKNESS (3) Hypomagnesemia Assessment/Plan: Will Rx again Code(s): E83.42 - HYPOMAGNESEMIA (4) Tachycardia Assessment/Plan: still unsure of cause of persisting tachycardia at rest. ? review recent cho; repeat thyroid tests. Code(s): R00.0 - TACHYCARDIA, UNSPECIFIED
[2016-12-03] MEDS ORDERED: MAGNESIUM SULF 50% (8.12 MEQ/2 ML-1 GM VIAL) IVPB ONE (08:46)
[2016-12-03] MEDS ORDERED: PT OWN MED DRAWER 7, Y5N ONE ×3 (09:16→21:02)
[2016-12-03] MEDS ORDERED: QUINAPRIL HCL 20 MG TABLET (FP) PO SCH ×2 (10:00)
[2016-12-03] MEDS ORDERED: PATIENT'S OWN MEDICATION (NON-FORMULARY) (Naloxegol Oxalate [Movantik] 25 MG) PO SCH (10:00)
--- NOTE | 2016-12-03 10:19 | CON.CARD ---
Consult Consult Specialty:: Cardiology Referred by:: Jong Rodgers MD Reason for Consultation:: Dizziness - History of Present Illness Chief Complaint: Dizziness History of Present Illness: Patient is a 76 year old female with underlying history of MVP, HTN, bronchial asthma and GERD who presents with non-exertional palpitations, elevated blood pressure and heart rate by her home PT, reports feeling nonexertional dizziness over last 3 days, recent admission ruled out for PE, and treated for PNA. She denies chest pain, true syncope, palpitations, orthopnea, PND or LE edema, sxs resolved with IVF. 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 cervical and lumbar radiculopathy. avascular necrosis of femoral head. 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 Travel: No Home Medications - Allergies Allergies/Adverse Reactions: Allergies Allergy/AdvReac Type Severity Reaction Status Date / Time metronidazole [From Flagyl] Allergy Intermediate Swelling Verified 12/02/16 12: 28 lactose AdvReac Verified 12/02/16 12:28 fresh fruit Allergy Vomiting Uncoded 12/02/16 12:28 fresh vegetables Allergy Uncoded 12/02/16 12:28 - Home Medications Home Medications: Ambulatory Orders Acetaminophen [Tylenol] 325 mg PO PRN 11/02/16 Ascorbic Acid [C-1000] 1,000 mg PO DAILY 11/02/16 Aspirin [ASA -] 81 mg PO DAILY 11/02/16 Cholecalciferol (Vitamin D3) [Vitamin D3] 2,000 unit PO DAILY 11/02/16 Cyclobenzaprine HCl [Flexeril -] 5 mg PO TID 11/02/16 Dicyclomine HCl [Bentyl -] 10 mg PO ONCE 11/02/16 Diltiazem HCl [Diltiazem 24Hr Cd] 240 mg PO HS 11/02/16 Docusate Sodium [Dok] 100 mg PO ASDIR 11/02/16 Iron Ps Cmplx/Vit B12/FA [Ferrex 150 Forte Capsule] 1 each PO DAILY 11/02/16 Levothyroxine [Synthroid -] 25 mcg PO DAILY 11/02/16 Montelukast Na [Singulair -] 10 mg PO DAILY 11/02/16 Naloxegol Oxalate [Movantik] 25 mg PO DAILY 11/02/16 Nitroglycerin [Nitrostat] 0.4 mg SL PRN 11/02/16 Nortriptyline HCl [Pamelor -] 50 mg PO HS 11/02/16 Ondansetron [Zofran Odt -] 4 mg SL TID 11/02/16 Quinapril HCl [Accupril -] 20 mg PO DAILY 11/02/16 Ranitidine [Zantac -] 150 mg PO HS 11/02/16 Sennosides [Senna -] 2 tab PO HS 11/02/16 Sertraline HCl [Zoloft -] 100 mg PO DAILY 11/02/16 Sumatriptan Succinate [Imitrex -] 100 mg PO PRN 11/02/16 Alprazolam [Xanax] 1 mg PO DAILY PRN #0 tablet MDD 1 11/10/16 Oxycodone HCl [Roxicodone -] 5 mg PO TID #0 11/10/16 Polyethylene Glycol 3350 [Miralax 119 gm Btl -] 17 gm PO BID bottle 11/10/16 Potassium Chloride [K-Dur -] 10 meq PO BID tablet.er 11/10/16 Zolpidem Tartrate [Ambien] 5 mg PO HS #0 11/10/16 Prednisone [Deltasone -] 10 mg PO BID tablet 11/11/16 Family Disease History - Family Disease History Family Disease History: CA: Father (lung), Mother (breast) Review of Systems - Review of Systems Cardiovascular: reports: Palpitations Neurological: reports: Dizziness Vital Signs: Vital Signs Temperature 98.1 F 12/03/16 05:39 Pulse Rate 96 H 12/03/16 05:39 Respiratory Rate 18 12/03/16 05:39 Blood Pressure 120/59 12/03/16 05:39 O2 Sat by Pulse Oximetry (%) 99 12/03/16 02:00 Constitutional: Yes: No Distress, Calm Neck: Yes: Supple Respiratory: Yes: Regular, Diminished Gastrointestinal: Yes: Normal Bowel Sounds, Soft, Abdomen, Obese Cardiovascular: Yes: Regular Rate and Rhythm JVD: No Carotid Bruit: No Heart Sounds: Yes: S1, S2 Edema: No - Other Data Labs, Other Data: CBC, BMP 12/03/16 05:35 12/03/16 05:35 INR, PTT INR 0.99 (0.82-1.09) 12/02/16 12:50 Troponin, BNP 12/02/16 12/03/16 12/03/16 22:00 05:35 05:35 Troponin I < 0.02 < 0.02 Cancelled Troponin, BNP 12/02/16 12/03/16 12/03/16 22:00 05:35 05:35 Troponin I < 0.02 < [address] @ [address]-T changes Echo: Report Reviewed Problem List - Problems (1) Pre-syncope Code(s): R55 - SYNCOPE AND COLLAPSE (2) Tachycardia Code(s): R00.0 - TACHYCARDIA, UNSPECIFIED (3) Mitral valve prolapse Code(s): I34.1 - NONRHEUMATIC MITRAL (VALVE) PROLAPSE (4) HTN (hypertension) Code(s): I10 - ESSENTIAL (PRIMARY) HYPERTENSION Qualifiers: Hypertension type: essential hypertension Qualified Code(s): I10 - Essential (primary) hypertension (5) Hypothyroid Code(s): E03.9 - HYPOTHYROIDISM, UNSPECIFIED Qualifiers: Hypothyroidism type: unspecified Qualified Code(s): E03.9 - Hypothyroidism, unspecified Assessment/Plan 11/04/2016 Echo: Normal LV size and fxn, mod TR 1. Palpitations underlying sinus tachycardia improved 2. Near syncope with history of MVP 3. Recent right humeral fracture - post repair 4. History of HTN 5. Hypothyroidism PLAN: 1. Check orthostasis, ruled out [place] 2. Change Cardizem CD 240 AM and decrease Quinapril 10 PM 3. Continue ASA 81 qd 4. DVT and GI prophylaxis 5. Thank you for consultative opportunity
[2016-12-03] MEDS: ASCORBIC ACID 500 MG TABLET (FP) PO SCH (10:48)
[2016-12-03] MEDS: POTASSIUM CHLORIDE TABS 10 MEQ TABLET.ER (FP) PO SCH ×2 (10:48→21:23)
[2016-12-03] MEDS: CHOLECALCIFEROL (VITAMIN D3) 1,000 UNIT TABLET (FP) PO SCH (10:49)
[2016-12-03] MEDS: ASPIRIN 81 MG CHEWABLE TABLETS PO SCH (10:49)
[2016-12-03] MEDS: SERTRALINE HCL 50 MG TABLET (FP) PO SCH (10:49)
[2016-12-03] MEDS: POLYETHYLENE GLYCOL 3350 119 GM BTL PO SCH ×2 (10:50→21:29)
[2016-12-03] MEDS: MONTELUKAST NA 10 MG TABLET PO SCH (10:51)
--- NOTE | 2016-12-03 13:05 | CON.PULM ---
Consult Consult Specialty:: PULMONARY Referred by:: Dr. Rodgers Reason for Consultation:: hypoxia - History of Present Illness Chief Complaint: near syncope History of Present Illness: 76yo female with h/o HTN, mitral valve prolapse, hypothyroidism, GERD, asthma since childhood who was admitted with dizzy episode. She states that she was starting to walk with her home PT when she suddenly felt lightheaded, dizzy with palpitations. No chest pain but with left arm pain associated with shortness of breath. No cough or wheezing. She has been in her USOH apart from this episode. No cough or wheezing. No dysuria or diarrhea. No nausea or vomiting. She was recently admitted for a pneumonia and had a CTA chest which ruled out VTE. She has been noted to have hypoxic episodes, placed on nasal cannula. She has been told that she is a loud snorer, does wake up multiple times throughout the night. She wakes up with a headache and does not feel rested in the morning. She does experience daytime somnolence. She was diagnosed with asthma as a child, has not been hospitalized specifically for asthma since childhood, maintained at home on nebulizer treatments. She is on prednisone courses about 4 times/year. 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 cervical and lumbar radiculopathy. avascular necrosis of femoral head. 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 Travel: No Home Medications - Allergies Allergies/Adverse Reactions: Allergies Allergy/AdvReac Type Severity Reaction Status Date / Time metronidazole [From Flagyl] Allergy Intermediate Swelling Verified 12/02/16 12: 28 lactose AdvReac Verified 12/02/16 12:28 fresh fruit Allergy Vomiting Uncoded 12/02/16 12:28 fresh vegetables Allergy Uncoded 12/02/16 12:28 - Home Medications Home Medications: Ambulatory Orders Acetaminophen [Tylenol] 325 mg PO PRN 11/02/16 Ascorbic Acid [C-1000] 1,000 mg PO DAILY 11/02/16 Aspirin [ASA -] 81 mg PO DAILY 11/02/16 Cholecalciferol (Vitamin D3) [Vitamin D3] 2,000 unit PO DAILY 11/02/16 Cyclobenzaprine HCl [Flexeril -] 5 mg PO TID 11/02/16 Dicyclomine HCl [Bentyl -] 10 mg PO ONCE 11/02/16 Diltiazem HCl [Diltiazem 24Hr Cd] 240 mg PO HS 11/02/16 Docusate Sodium [Dok] 100 mg PO ASDIR 11/02/16 Iron Ps Cmplx/Vit B12/FA [Ferrex 150 Forte Capsule] 1 each PO DAILY 11/02/16 Levothyroxine [Synthroid -] 25 mcg PO DAILY 11/02/16 Montelukast Na [Singulair -] 10 mg PO DAILY 11/02/16 Naloxegol Oxalate [Movantik] 25 mg PO DAILY 11/02/16 Nitroglycerin [Nitrostat] 0.4 mg SL PRN 11/02/16 Nortriptyline HCl [Pamelor -] 50 mg PO HS 11/02/16 Ondansetron [Zofran Odt -] 4 mg SL TID 11/02/16 Quinapril HCl [Accupril -] 20 mg PO DAILY 11/02/16 Ranitidine [Zantac -] 150 mg PO HS 11/02/16 Sennosides [Senna -] 2 tab PO HS 11/02/16 Sertraline HCl [Zoloft -] 100 mg PO DAILY 11/02/16 Sumatriptan Succinate [Imitrex -] 100 mg PO PRN 11/02/16 Alprazolam [Xanax] 1 mg PO DAILY PRN #0 tablet MDD 1 11/10/16 Oxycodone HCl [Roxicodone -] 5 mg PO TID #0 11/10/16 Polyethylene Glycol 3350 [Miralax 119 gm Btl -] 17 gm PO BID bottle 11/10/16 Potassium Chloride [K-Dur -] 10 meq PO BID tablet.er 11/10/16 Zolpidem Tartrate [Ambien] 5 mg PO HS #0 11/10/16 Prednisone [Deltasone -] 10 mg PO BID tablet 11/11/16 Family Disease History - Family Disease History Family Disease History: CA: Father (lung), Mother (breast) Review of Systems - Review of Systems Constitutional: reports: Weakness. denies: Chills, Fever Eyes: denies: Recent Change in Vision HENT: denies: Nasal Congestion, Throat Pain Neck: denies: Stiffness, Tenderness Cardiovascular: reports: Shortness of Breath. denies: Chest Pain, Palpitations Respiratory: reports: SOB. denies: Cough, Hemoptysis, Wheezing Gastrointestinal: denies: Abdominal Pain, Nausea, Vomiting Genitourinary: denies: Dysuria, Hematuria Neurological: reports: Dizziness. denies: Headache Physical Exam Vital Sings: Vital Signs Temperature 98.1 F 12/03/16 05:39 Pulse Rate 94 H 12/03/16 10:00 Respiratory Rate 18 12/03/16 10:00 Blood Pressure 152/73 12/03/16 10:00 O2 Sat by Pulse Oximetry (%) 97 12/03/16 10:00 Constitutional: Yes: No Distress, Calm Eyes: Yes: Conjunctiva Clear, EOM Intact HENT: Yes: Atraumatic, Normocephalic Neck: Yes: Supple, Trachea Midline Cardiovascular: Yes: Regular Rate and Rhythm Respiratory: Yes: Regular, Diminished (decreased breath sounds at the bases), Rales (bibasilar which clears with coughing) ...Clubbing: No Gastrointestinal: Yes: Normal Bowel Sounds, Soft, Abdomen, Obese. No: Tenderness Edema: Yes (LLE) Labs: CBC, BMP 12/03/16 05:35 12/03/16 05:35 Imaging - Results Chest X-ray: Report Reviewed, Image Reviewed (bibasilar atelectasis) Problem List - Problems (1) Pre-syncope Code(s): R55 - SYNCOPE AND COLLAPSE (2) Mitral valve prolapse Code(s): I34.1 - NONRHEUMATIC MITRAL (VALVE) PROLAPSE (3) Asthma Code(s): J45.909 - UNSPECIFIED ASTHMA, UNCOMPLICATED (4) HTN (hypertension) Code(s): I10 - ESSENTIAL (PRIMARY) HYPERTENSION Qualifiers: Hypertension type: essential hypertension Qualified Code(s): I10 - Essential (primary) hypertension (5) Hypothyroid Code(s): E03.9 - HYPOTHYROIDISM, UNSPECIFIED Qualifiers: Hypothyroidism type: unspecified Qualified Code(s): E03.9 - Hypothyroidism, unspecified (6) Atelectasis Code(s): J98.11 - ATELECTASIS Assessment/Plan Near Syncope Asthma Hypoxia Atelectasis Likely Obstructive Sleep Apnea Likely Obesity Hypoventilation Syndrome - obtained history and performed physical off supplemental oxygen and her oxygen saturations fluctuated between 84% and 97% depending on positioning and deep inspiration - she likely has BRAVO/OHS with bibasilar atelectasis when at rest - will obtain baseline ABG to evaluate for chronic CO2 retention - if her baseline pCO2 is elevated, she may qualify for home PAP support - if her baseline pCO2 is normal, she will need outpt PSG and PFTs - incentive spirometry - outpt f/u - DVT prophylaxis Thank you for this consult Camilo Bolanos MD
[2016-12-03] MEDS: FE POLYSAC/CYANOCOBAL/FA COMBO CAPSULE PO SCH (15:46)
[2016-12-03 15:53] LABS: ARTERIAL BLD GAS O2 SATURATION 95.8 % (90-98.9); ARTERIAL BLOOD GAS BASE EXCESS 3.9 meq/l (-2-2); ARTERIAL BLOOD GAS HCO3 29.1 meq/L (22-26); ARTERIAL BLOOD GAS pH 7.39 (7.35-7.45)
[2016-12-03 15:54] LABS: ALLENS TEST POSITIVE; ART PUNCT SITE RIGHT RADIAL; LPM/O2% 2.5L; PT. ON O2? YES; TYPE OF O2 NASAL
--- NOTE | 2016-12-03 17:57 | CON.ENT ---
Consult Consult Specialty:: ENT Referred by:: laurie Reason for Consultation:: Vertigo - History of Present Illness Chief Complaint: 2 weeks of weakness, and on occ spinning. History of Present Illness: 2 weeks of weakness, brought in with tachycardia and HTN. She has episodes of walking and going to the left and occ 10 min of SPINNING. She denies tinnitus and new hearing changes. She denies head trauma and headaches. - History Source History Provided By: Patient, Medical Record Limitations to Obtaining History: No Limitations - Past Medical History [employer]: Yes: Migraine Cardio/Vascular: Yes: CAD, HTN, Other (MVP) Pulmonary: Yes: Asthma, Bronchitis Gastrointestinal: Yes: Diverticulosis, Gastritis, GERD, Hiatal Hernia, Irritable Bowel Disease, Peptic Ulcer Disease Hepatobiliary: Yes: Other (papillary stenosis @ ER[facility] with Dr mAaro 01/15) Renal/: Yes: UTI Psych: Yes: Anxiety Musculoskeletal: Yes: Chronic low back pain, Osteoarthritis Endocrine: Yes: Hypothyroidism Additional Medical History: early glaucoma. cervical and lumbar radiculopathy. avascular necrosis of femoral head. 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 Travel: No Home Medications - Allergies Allergies/Adverse Reactions: Allergies Allergy/AdvReac Type Severity Reaction Status Date / Time metronidazole [From Flagyl] Allergy Intermediate Swelling Verified 12/02/16 12: 28 lactose AdvReac Verified 12/02/16 12:28 fresh fruit Allergy Vomiting Uncoded 12/02/16 12:28 fresh vegetables Allergy Uncoded 12/02/16 12:28 - Home Medications Home Medications: Ambulatory Orders Acetaminophen [Tylenol] 325 mg PO PRN 11/02/16 Ascorbic Acid [C-1000] 1,000 mg PO DAILY 11/02/16 Aspirin [ASA -] 81 mg PO DAILY 11/02/16 Cholecalciferol (Vitamin D3) [Vitamin D3] 2,000 unit PO DAILY 11/02/16 Cyclobenzaprine HCl [Flexeril -] 5 mg PO TID 11/02/16 Dicyclomine HCl [Bentyl -] 10 mg PO ONCE 11/02/16 Diltiazem HCl [Diltiazem 24Hr Cd] 240 mg PO HS 11/02/16 Docusate Sodium [Dok] 100 mg PO ASDIR 11/02/16 Iron Ps Cmplx/Vit B12/FA [Ferrex 150 Forte Capsule] 1 each PO DAILY 11/02/16 Levothyroxine [Synthroid -] 25 mcg PO DAILY 11/02/16 Montelukast Na [Singulair -] 10 mg PO DAILY 11/02/16 Naloxegol Oxalate [Movantik] 25 mg PO DAILY 11/02/16 Nitroglycerin [Nitrostat] 0.4 mg SL PRN 11/02/16 Nortriptyline HCl [Pamelor -] 50 mg PO HS 11/02/16 Ondansetron [Zofran Odt -] 4 mg SL TID 11/02/16 Quinapril HCl [Accupril -] 20 mg PO DAILY 11/02/16 Ranitidine [Zantac -] 150 mg PO HS 11/02/16 Sennosides [Senna -] 2 tab PO HS 11/02/16 Sertraline HCl [Zoloft -] 100 mg PO DAILY 11/02/16 Sumatriptan Succinate [Imitrex -] 100 mg PO PRN 11/02/16 Alprazolam [Xanax] 1 mg PO DAILY PRN #0 tablet MDD 1 11/10/16 Oxycodone HCl [Roxicodone -] 5 mg PO TID #0 11/10/16 Polyethylene Glycol 3350 [Miralax 119 gm Btl -] 17 gm PO BID bottle 11/10/16 Potassium Chloride [K-Dur -] 10 meq PO BID tablet.er 11/10/16 Zolpidem Tartrate [Ambien] 5 mg PO HS #0 11/10/16 Prednisone [Deltasone -] 10 mg PO BID tablet 11/11/16 Family Disease History - Family Disease History Family Disease History: CA: Father (lung), Mother (breast) Physical Exam-ENT Vital Signs: Vital Signs Temperature 98.3 F 12/03/16 15:35 Pulse Rate 95 H 12/03/16 15:35 Respiratory Rate 22 12/03/16 15:35 Blood Pressure 120/46 12/03/16 15:35 O2 Sat by Pulse Oximetry (%) 97 12/03/16 10:00 Constitutional: Yes: Well Nourished Head: Yes: WNL, Atraumatic Face: Yes: WNL Eyes: Yes: WNL Nose: Yes: WNL Nasal Passage: Yes: WNL Oral/Pharynx: Yes: WNL Outer Ear: Yes: WNL Ear Canal: Yes: WNL Tympanic Membrane: Yes: WNL Neck: Yes: WNL Respiratory: Yes: WNL Neurological: Yes: WNL, Alert, Oriented, Other (Hallpike with left ear down, seconds of subjective vertigo. Minimal/zero nystagmus. Salvador maneuver performed based on intial position of left ear down.) Problem List - Problems (1) Vertigo Assessment/Plan: Vertigo at least partially positional. BPV, Salvador maneuver performed. No lying flat for 72+ hours. Pathology explained to patient. She should f/u in office in 1-2 weeks. Code(s): R42 - DIZZINESS AND GIDDINESS
[2016-12-03] MEDS: NORTRIPTYLINE HCL 25 MG CAPSULE PO SCH (21:21)
[2016-12-03] MEDS: ALPRAZolam 2 MG TABLET PO PRN (21:23)
[2016-12-03] MEDS: RANITIDINE HCL 150 MG TABLET (FP) PO SCH (21:23)
[2016-12-03] MEDS: SENNOSIDES 8.6MG TABLET (FP) PO SCH (21:23)
[2016-12-03] MEDS: ZOLPIDEM TARTRATE 5 MG TABLET PO PRN (22:42)
[2016-12-04] MEDS: CYCLOBENZAPRINE HCL 10 MG TABLET (FP) PO SCH ×3 (06:35→21:19)
[2016-12-04] MEDS: LEVOTHYROXINE NA 25 MCG TABLET (FP) PO SCH (06:35)
[2016-12-04 08:01] LABS: FREE T4 1.07 ng/dl (0.76-1.46); MAGNESIUM 1.7 mg/dL (1.8-2.4); THYROID STIMULATING HORMONE 0.61 uIU/ml (0.358-3.74)
[2016-12-04] MEDS ORDERED: PT OWN MED DRAWER 7, Y5N ONE (09:12)
[2016-12-04] MEDS: SERTRALINE HCL 50 MG TABLET (FP) PO SCH (09:19)
[2016-12-04] MEDS: MONTELUKAST NA 10 MG TABLET PO SCH (09:19)
[2016-12-04] MEDS: ASCORBIC ACID 500 MG TABLET (FP) PO SCH (09:19)
[2016-12-04] MEDS: ASPIRIN 81 MG CHEWABLE TABLETS PO SCH (09:20)
[2016-12-04] MEDS: CHOLECALCIFEROL (VITAMIN D3) 1,000 UNIT TABLET (FP) PO SCH (09:20)
[2016-12-04] MEDS: POLYETHYLENE GLYCOL 3350 119 GM BTL PO SCH ×2 (09:20→21:17)
[2016-12-04] MEDS: FE POLYSAC/CYANOCOBAL/FA COMBO CAPSULE PO SCH (09:20)
[2016-12-04] MEDS: POTASSIUM CHLORIDE TABS 10 MEQ TABLET.ER (FP) PO SCH ×2 (09:20→21:21)
[2016-12-04] MEDS ORDERED: ALBUTEROL SO4 0.083% IH SOL 2.5 MG/3 ML VIAL.NEB. NEB PRN (11:40)
--- NOTE | 2016-12-04 11:40 | PN ---
Progress Note, Physician History of Present Illness: pulmonary alert,feeling better.less dyspneic,-cp, - Current Medication List Current Medications: Active Medications Acetaminophen (Tylenol -) 650 mg PO Q4H PRN PRN Reason: FEVER OR PAIN Alprazolam (Xanax -) 1 mg PO DAILY PRN PRN Reason: ANXIETY Last Admin: 12/03/16 21:23 Dose: 1 mg Ascorbic Acid (Vitamin C -) 1,000 mg PO DAILY [facility] Last Admin: 12/04/16 09:19 Dose: 1,000 mg Aspirin (Asa -) 81 mg PO DAILY [facility] Last Admin: 12/04/16 09:20 Dose: 81 mg B12/Folic Ac/Intrin Fact/Iron/Vit C (Niferex-150 Forte -) 1 each PO DAILY [facility] Last Admin: 12/04/16 09:20 Dose: 1 each Cholecalciferol (Vitamin D3 -) 2,000 unit PO DAILY [facility] Last Admin: 12/04/16 09:20 Dose: 2,000 unit Cyclobenzaprine HCl (Flexeril -) 5 mg PO TID [facility] Last Admin: 12/04/16 06:35 Dose: 5 mg Diltiazem HCl (Cardizem Cd -) 240 mg PO HS [facility] Sodium Chloride (Normal Saline -) 1,000 mls @ 42 mls/hr IV ASDIR [facility] Last Admin: 12/02/16 22:49 Dose: 42 mls/hr Levothyroxine Sodium (Synthroid -) 25 mcg PO DAILY@0700 [facility] Last Admin: 12/04/16 06:35 Dose: 25 mcg Magnesium Sulfate (Magnesium Sulfate) 1 gm IVPB ONCE ONE Stop: 12/04/16 11:32 Montelukast Sodium (Singulair -) 10 mg PO DAILY [facility] Last Admin: 12/04/16 09:19 Dose: 10 mg Nitroglycerin (Nitrostat -) 0.4 mg SL Q5M PRN PRN Reason: CHEST PAIN Non-Formulary Medication (Naloxegol Oxalate [Movantik]) 25 mg PO DAILY [facility] Nortriptyline HCl (Pamelor -) 50 mg PO HS [facility] Last Admin: 12/03/16 21:21 Dose: 50 mg Ondansetron HCl (Zofran Injection) 4 mg IVPB Q6H PRN PRN Reason: NAUSEA Oxycodone HCl (Roxicodone -) 5 mg PO Q6H PRN PRN Reason: PAIN Last Admin: 12/03/16 16:30 Dose: 5 mg Polyethylene Glycol (Miralax (For Daily Use) -) 17 gm PO BID [facility] Last Admin: 12/04/16 09:20 Dose: 17 gm Potassium Chloride (K-Dur -) 10 meq PO BID [facility] Last Admin: 12/04/16 09:20 Dose: 10 meq Quinapril HCl (Accupril -) 10 mg PO DAILY [facility] Ranitidine HCl (Zantac -) 150 mg PO HS [facility] Last Admin: 12/03/16 21:23 Dose: 150 mg Senna (Senna -) 2 tab PO HS [facility] Last Admin: 12/03/16 21:23 Dose: Not Given Sertraline HCl (Zoloft -) 100 mg PO DAILY [facility] Last Admin: 12/04/16 09:19 Dose: 100 mg Sumatriptan Succinate (Imitrex -) 100 mg PO PRN PRN PRN Reason: MIGRAINE - Objective Vital Signs: Vital Signs Temperature 98.1 F 12/04/16 10:00 Pulse Rate 98 H 12/04/16 10:00 Respiratory Rate 18 12/04/16 10:00 Blood Pressure 112/66 12/04/16 10:00 O2 Sat by Pulse Oximetry (%) 95 12/04/16 04:00 Constitutional: Yes: Well Nourished, Calm Eyes: Yes: WNL HENT: Yes: WNL Neck: Yes: WNL Cardiovascular: Yes: Regular Rate and Rhythm, S1, S2 Respiratory: Yes: Wheezes (few wheezes) Gastrointestinal: Yes: Normal Bowel Sounds, Soft Extremities: Yes: WNL Edema: No Labs: Assessment/Plan Problem List - Problems (1) Pre-syncope Code(s): R55 - SYNCOPE AND COLLAPSE (2) Mitral valve prolapse Code(s): I34.1 - NONRHEUMATIC MITRAL (VALVE) PROLAPSE (3) Asthma Code(s): J45.909 - UNSPECIFIED ASTHMA, UNCOMPLICATED (4) HTN (hypertension) Code(s): I10 - ESSENTIAL (PRIMARY) HYPERTENSION Qualifiers: Hypertension type: essential hypertension Qualified Code(s): I10 - Essential (primary) hypertension (5) Hypothyroid Code(s): E03.9 - HYPOTHYROIDISM, UNSPECIFIED Qualifiers: Hypothyroidism type: unspecified Qualified Code(s): E03.9 - Hypothyroidism, unspecified (6) Atelectasis Code(s): J98.11 - ATELECTASIS Assessment/Plan Near Syncope Asthma Hypoxia Atelectasis Likely Obstructive Sleep Apnea Likely Obesity Hypoventilation Syndrome - likely BRAVO/OHS - if her baseline pCO2 is elevated, she may qualify for home PAP support - outpatient PFTs - incentive spirometry - outpt f/u - DVT prophylaxis - inhaled bronchodilators
[2016-12-04] MEDS ORDERED: MAGNESIUM SULF 50% (8.12 MEQ/2 ML-1 GM VIAL) IVPB ONE (11:45)
--- NOTE | 2016-12-04 11:45 | PN ---
Progress Note (short form) - Note Progress Note: Patient had visits from 3 consultants: Cardiology: Decrease Quinapril to 10 HS and ??Change Cardizem CD 240 but he ordered this dose. Await followup. Pulmonary: ? sleep apnea and ABG done and PCO2 is elevated to 49.7. ??PAP at home; this may help her. No Smoking but years of Asthma and Bronchitis. ENT: Salvador maneuver performed for vertigo; it appears to have helped. On Exam: Vital Signs Period Temp Pulse Resp BP Sys/Ahn Pulse Ox Last 24 Hr 97.5 F-98.4 F 82-104 18-22 98-149/41-90 92-95 Alert Pale resting in bed Cor Reg but still near 100 beats/minute Chest: no wheezes Ext: no edema Abnormal Lab Results 12/03/16 12/04/16 15:40 05:35 ABG pCO2 at Pt Temp 49.7 H ABG HCO3 29.1 H ABG O2 Content 14.2 L ABG Base Excess 3.9 H Magnesium 1.7 L Imp: Persistent tachcardia ? related to Rx vs sleep apna-hypoxia CO2 retention Hypertension on Rx. Acute Vertigo Chronic Pain Chronic Anxiety Hx recent right shoulder surgery and Humerus Fx. Hx Migranes. recent pnemonia Hypomagnesemia Plan: Await F/U Cardiology re: Cardizem Rx Await F/U Puulmonary Re : Sleep Apnea; home PAP Magnesium IV and followup lab PT Problem List - Problems (1) Pre-syncope Code(s): R55 - SYNCOPE AND COLLAPSE (2) Weakness Code(s): R53.1 - WEAKNESS (3) Hypomagnesemia Code(s): E83.42 - HYPOMAGNESEMIA (4) Tachycardia Code(s): R00.0 - TACHYCARDIA, UNSPECIFIED
--- NOTE | 2016-12-04 13:09 | PN ---
Progress Note (short form) - Note Progress Note: S: 76 year old female, with history of mitral valve prolapse, hyperthyroidism, hypertension. History of chronic pain syndrome, admitted with recurring fatigue which at times is profound and palpitations. No history of recent chest pain or discomfort, no history of dyspnea reported. No paroxysnal nocturnal dyspnea or orthopnea. Patient remains on multiple opiates. She is receiving morphine via pump and had been on prednisone back in early part of november and also has been on oxycodene back in october. History of depression and has had multipel abdominal surgeries according to the patient she underwent surgery for 51 times. She denies any further pre-syncopal episodes. Active Medications Generic Name Dose Route Start Last Admin Trade Name Freq PRN Reason Stop Dose Admin Acetaminophen 650 mg 12/02/16 15:48 Tylenol - PO Q4H PRN FEVER OR PAIN Albuterol Sulfate 1 amp 12/04/16 11:40 Ventolin 0.083% Nebulizer Soln - NEB Q4H PRN SHORT OF BREATH/WHEEZING Alprazolam 1 mg 12/02/16 15:35 12/03/16 21:23 Xanax - PO 1 mg DAILY PRN Administration ANXIETY Ascorbic Acid 1,000 mg 12/03/16 10:00 12/04/16 09:19 Vitamin C - PO 1,000 mg DAILY [facility] Administration Aspirin 81 mg 12/03/16 10:00 12/04/16 09:20 Asa - PO 81 mg DAILY [facility] Administration B12/Folic Ac/Intrin Fact/Iron/Vit C 1 each 12/03/16 10:00 12/04/16 09:20 Niferex-150 Forte - PO 1 each DAILY [facility] Administration Budesonide/Formoterol Fumarate 2 puff 12/04/16 11:45 Symbicort 160/4.5mcg - IH BID [facility] Cholecalciferol 2,000 unit 12/03/16 10:00 12/04/16 09:20 Vitamin D3 - PO 2,000 unit DAILY [facility] Administration Cyclobenzaprine HCl 5 mg 12/02/16 22:00 12/04/16 06:35 Flexeril - PO 5 mg TID [facility] Administration Diltiazem HCl 240 mg 12/04/16 22:00 Cardizem Cd - PO HS [facility] Sodium Chloride 1,000 mls @ 42 mls/hr 12/02/16 16:00 12/02/16 22:49 Normal Saline - IV 42 mls/hr ASDIR [facility] Administration Levothyroxine Sodium 25 mcg 12/03/16 07:00 12/04/16 06:35 Synthroid - PO 25 mcg DAILY@0700 [facility] Administration Montelukast Sodium 10 mg 12/03/16 10:00 12/04/16 09:19 Singulair - PO 10 mg DAILY [facility] Administration Nitroglycerin 0.4 mg 12/02/16 15:45 Nitrostat - SL Q5M PRN CHEST PAIN Non-Formulary Medication 25 mg 12/03/16 10:00 Naloxegol Oxalate [Movantik] PO DAILY [facility] Nortriptyline HCl 50 mg 12/02/16 22:00 12/03/16 21:21 Pamelor - PO 50 mg HS [facility] Administration Ondansetron HCl 4 mg 12/02/16 15:48 Zofran Injection IVPB Q6H PRN NAUSEA Oxycodone HCl 5 mg 12/02/16 15:48 12/03/16 16:30 Roxicodone - PO 5 mg Q6H PRN Administration PAIN Polyethylene Glycol 17 gm 12/02/16 22:00 12/04/16 09:20 Miralax (For Daily Use) - PO 17 gm BID [facility] Administration Potassium Chloride 10 meq 12/02/16 22:00 12/04/16 09:20 K-Dur - PO 10 meq BID [facility] Administration Quinapril HCl 10 mg 12/04/16 20:00 Accupril - PO DAILY [facility] Ranitidine HCl 150 mg 12/02/16 22:00 12/03/16 21:23 Zantac - PO 150 mg HS [facility] Administration Senna 2 tab 12/02/16 22:00 12/03/16 21:23 Senna - PO Not Given HS [facility] Sertraline HCl 100 mg 12/03/16 10:00 12/04/16 09:19 Zoloft - PO 100 mg DAILY [facility] Administration Sumatriptan Succinate 100 mg 12/02/16 16:00 Imitrex - PO PRN PRN MIGRAINE O: 76 year old female was in no acute distress, no pallor, cyanosis, clubbing, or jaundice. Patient becomes tachycardic with minimal exertion. Last Vital Signs Temp Pulse Resp BP Pulse Ox 98.1 F 120 H 18 112/66 95 12/04/16 10:00 12/04/16 10:00 12/04/16 10:00 12/04/16 10:00 12/04/16 04:00 Neck: Supple, no JVD, negative HJR, carotids were equal and upstrokes were normal, no thyromegaly appreciated. Heart: PMI was in the 5th intercostal space, no heaves or thrills, S1 and S2 were normal, nonejection systolic click along the left sternal border. No murmurs or gallops were appreciated. Lungs: Clear on auscultation bilaterally. Abdomen: Soft, nontender, no hepatosplenomegaly appreciated, and no palpable masses were felt. Multiple well healed surgical scars. Extremities: No calf tenderness, 1+ dependent edema. Pulses are normal. CBC, BMP 12/03/16 05:35 12/03/16 05:35 Laboratory Results - last 24 hr 12/03/16 12/04/16 15:40 05:35 Puncture Site Right radial ABG pH 7.39 ABG pCO2 at Pt Temp 49.7 H ABG pO2 at Pt Temp 83.0 ABG HCO3 29.1 H ABG O2 Sat (Measured) 95.8 ABG O2 Content 14.2 L ABG Base Excess 3.9 H Steven Test Positive O2 Delivery Device Nasal Oxygen Flow Rate 2.5l Magnesium 1.7 L TSH 0.61 D Free T4 1.07 D Impression: (1) Intermittent sinus Tachycardia, etiology to be determined Code(s): R00.0 - TACHYCARDIA, UNSPECIFIED (2) Recurring fatigue, weakness, and history of falls, etiology to determined Code(s): R55 - COLLAPSE (3) Mitral valve prolapse Code(s): I34.1 - NONRHEUMATIC MITRAL (VALVE) PROLAPSE (4) History of hypertension Code(s): I10 - ESSENTIAL (PRIMARY) HYPERTENSION Qualifiers: Hypertension type: essential hypertension Qualified Code(s): I10 - Essential (primary) hypertension (5) Hypothyroidism Code(s): E03.9 - HYPOTHYROIDISM, UNSPECIFIED Qualifiers: Hypothyroidism type: unspecified Qualified Code(s): E03.9 - Hypothyroidism, unspecified (6) Exogenous obesity Code(s): E66.9 - OBESITY, UNSPECIFIED (7) Incomplete right bundle branch block (8) Hypomagnesium Code(s): E83.42 - HYPOMAGNESEMIA (9) Sleep apnea needs to be excluded. Recommendations: 1. Consider checking cortisol levels. 2. Check blood pressure supine and standing. 3. Halter monitor. 4. Correct magnesium levels. 5. ESR C reactive protein. 6. Consider sleep study. Attestation: Documentation prepared by Pierce Mary, acting as director global medical affairs for Michele Decker MD.
[2016-12-04] MEDS: BUDESONIDE/FORMETEROL FUMARATE 160/4.5 mcg INHALER IH SCH ×2 (14:41→21:24)
[2016-12-04] MEDS ORDERED: QUINAPRIL HCL 20 MG TABLET (FP) PO SCH (20:00)
[2016-12-04] MEDS: oxyCODONE HCL 5 MG TABLET PO PRN (20:14)
[2016-12-04] MEDS: SENNOSIDES 8.6MG TABLET (FP) PO SCH (21:17)
[2016-12-04] MEDS: RANITIDINE HCL 150 MG TABLET (FP) PO SCH (21:18)
[2016-12-04] MEDS: ALPRAZolam 2 MG TABLET PO PRN (21:18)
[2016-12-04] MEDS: QUINAPRIL HCL 10 MG TABLET (FP) PO SCH (21:19)
[2016-12-04] MEDS: SODIUM CHLORIDE 1,000 ML IV SCH (21:22)
[2016-12-04] MEDS: NORTRIPTYLINE HCL 25 MG CAPSULE PO SCH (21:22)
[2016-12-04] MEDS: ZOLPIDEM TARTRATE 5 MG TABLET PO PRN (23:32)
[2016-12-05] MEDS: CYCLOBENZAPRINE HCL 10 MG TABLET (FP) PO SCH ×3 (06:22→22:36)
[2016-12-05] MEDS: LEVOTHYROXINE NA 25 MCG TABLET (FP) PO SCH (06:22)
[2016-12-05] MEDS ORDERED: PT OWN MED DRAWER 7, Y5N ONE (09:22)
[2016-12-05] MEDS: SERTRALINE HCL 50 MG TABLET (FP) PO SCH (09:39)
[2016-12-05] MEDS: FE POLYSAC/CYANOCOBAL/FA COMBO CAPSULE PO SCH (09:40)
[2016-12-05] MEDS: MONTELUKAST NA 10 MG TABLET PO SCH (09:40)
[2016-12-05] MEDS: ASCORBIC ACID 500 MG TABLET (FP) PO SCH (09:40)
[2016-12-05] MEDS: POTASSIUM CHLORIDE TABS 10 MEQ TABLET.ER (FP) PO SCH ×2 (09:40→22:37)
[2016-12-05] MEDS: ASPIRIN 81 MG CHEWABLE TABLETS PO SCH (09:40)
[2016-12-05] MEDS: CHOLECALCIFEROL (VITAMIN D3) 1,000 UNIT TABLET (FP) PO SCH (09:40)
[2016-12-05] MEDS: BUDESONIDE/FORMETEROL FUMARATE 160/4.5 mcg INHALER IH SCH ×2 (09:41→22:45)
[2016-12-05] MEDS: QUINAPRIL HCL 10 MG TABLET (FP) PO SCH (09:43)
--- NOTE | 2016-12-05 10:12 | PN ---
Progress Note (short form) - Note Progress Note: PULMONARY Denies shortness of breath, cough or wheezing. Last Vital Signs Temp Pulse Resp BP Pulse Ox 97.8 F 99 H 20 113/60 94 L 12/05/16 05:21 12/05/16 05:21 12/05/16 05:21 12/05/16 05:21 12/05/16 04:00 Gen: NAD at rest Heart: RRR Lung: bibasilar rales Abd: soft, nontender Ext: no edema CBC, BMP 12/03/16 05:35 12/03/16 05:35 Active Medications Acetaminophen (Tylenol -) 650 mg PO Q4H PRN PRN Reason: FEVER OR PAIN Albuterol Sulfate (Ventolin 0.083% Nebulizer Soln -) 1 amp NEB Q4H PRN PRN Reason: SHORT OF BREATH/WHEEZING Alprazolam (Xanax -) 1 mg PO DAILY PRN PRN Reason: ANXIETY Last Admin: 12/04/16 21:18 Dose: 1 mg Ascorbic Acid (Vitamin C -) 1,000 mg PO DAILY [facility] Last Admin: 12/05/16 09:40 Dose: 1,000 mg Aspirin (Asa -) 81 mg PO DAILY [facility] Last Admin: 12/05/16 09:40 Dose: 81 mg B12/Folic Ac/Intrin Fact/Iron/Vit C (Niferex-150 Forte -) 1 each PO DAILY [facility] Last Admin: 12/05/16 09:40 Dose: 1 each Budesonide/Formoterol Fumarate (Symbicort 160/4.5mcg -) 2 puff IH BID [facility] Last Admin: 12/05/16 09:41 Dose: 2 inh Cholecalciferol (Vitamin D3 -) 2,000 unit PO DAILY [facility] Last Admin: 12/05/16 09:40 Dose: 2,000 unit Cyclobenzaprine HCl (Flexeril -) 5 mg PO TID [facility] Last Admin: 12/05/16 06:22 Dose: 5 mg Diltiazem HCl (Cardizem Cd -) 240 mg PO HS [facility] Last Admin: 12/04/16 21:21 Dose: 240 mg Sodium Chloride (Normal Saline -) 1,000 mls @ 42 mls/hr IV ASDIR [facility] Last Admin: 12/04/16 21:22 Dose: 42 mls/hr Levothyroxine Sodium (Synthroid -) 25 mcg PO DAILY@0700 [facility] Last Admin: 12/05/16 06:22 Dose: 25 mcg Montelukast Sodium (Singulair -) 10 mg PO DAILY [facility] Last Admin: 12/05/16 09:40 Dose: 10 mg Nitroglycerin (Nitrostat -) 0.4 mg SL Q5M PRN PRN Reason: CHEST PAIN Non-Formulary Medication (Naloxegol Oxalate [Movantik]) 25 mg PO DAILY [facility] Nortriptyline HCl (Pamelor -) [address] [facility] Last Admin: 12/04/16 21:22 Dose: 50 mg Ondansetron HCl (Zofran Injection) 4 mg IVPB Q6H PRN PRN Reason: NAUSEA Oxycodone HCl (Roxicodone -) 5 mg PO Q6H PRN PRN Reason: PAIN Last Admin: 12/04/16 20:14 Dose: 5 mg Polyethylene Glycol (Miralax (For Daily Use) -) 17 gm PO BID [facility] Last Admin: 12/04/16 21:17 Dose: Not Given Potassium Chloride (K-Dur -) 10 meq PO BID [facility] Last Admin: 12/05/16 09:40 Dose: 10 meq Quinapril HCl (Accupril -) 10 mg PO DAILY [facility] Last Admin: 12/05/16 09:43 Dose: 10 mg Ranitidine HCl (Zantac -) [address] [facility] Last Admin: 12/04/16 21:18 Dose: 150 mg Senna (Senna -) [address] [facility] Last Admin: 12/04/16 21:17 Dose: Not Given Sertraline HCl (Zoloft -) 100 mg PO DAILY [facility] Last Admin: 12/05/16 09:39 Dose: 100 mg Sumatriptan Succinate (Imitrex -) 100 mg PO PRN PRN PRN Reason: MIGRAINE Zolpidem Tartrate (Ambien -) 5 mg PO HS PRN Last Admin: 12/04/16 23:32 Dose: 5 mg A/P Near Syncope Asthma Hypoxia Atelectasis Likely Obstructive Sleep Apnea Likely Obesity Hypoventilation Syndrome - likely has BRAVO/OHS with bibasilar atelectasis when at rest - her ABG does not qualify her for BiPAP placement - she will need outpt PSG and PFTs to get PAP device - incentive spirometry - outpt f/u, no further inpatient pulmonary work up at this time - DVT prophylaxis Problem List - Problems (1) Pre-syncope Code(s): R55 - SYNCOPE AND COLLAPSE (2) Mitral valve prolapse Code(s): I34.1 - NONRHEUMATIC MITRAL (VALVE) PROLAPSE (3) Asthma Code(s): J45.909 - UNSPECIFIED ASTHMA, UNCOMPLICATED (4) HTN (hypertension) Code(s): I10 - ESSENTIAL (PRIMARY) HYPERTENSION Qualifiers: Hypertension type: essential hypertension Qualified Code(s): I10 - Essential (primary) hypertension (5) Hypothyroid Code(s): E03.9 - HYPOTHYROIDISM, UNSPECIFIED Qualifiers: Hypothyroidism type: unspecified Qualified Code(s): E03.9 - Hypothyroidism, unspecified (6) Atelectasis Code(s): J98.11 - ATELECTASIS
[2016-12-05] MEDS: POLYETHYLENE GLYCOL 3350 119 GM BTL PO SCH ×2 (10:42→22:37)
--- NOTE | 2016-12-05 10:49 | PN ---
Progress Note (short form) - Note Progress Note: Patient seen and examined. Chart reviewed. Patient known to me from previous admissions. Medications, labs and information services consultant notes reviewed. Currently sitting up in bed, lethargic , but awake alert and appropriate. Pain persists, but is tolerable. Denies new vertigo chest discomfort dyspnea or pre-syncope Selected Entries 12/05/16 12/05/16 04:00 05:21 Temperature 97.8 F Pulse Rate 99 H Respiratory 20 Rate Blood Pressure 113/60 O2 Sat by Pulse 94 L Oximetry (%) Oxygen Delivery Nasal Cannula Method Oxygen Flow 2 Rate Laboratory Tests 12/03/16 12/04/16 12/04/16 15:40 05:35 05:35 ABG pH 7.39 ABG pCO2 at Pt Temp 49.7 H ABG pO2 at Pt Temp 83.0 O2 Delivery Device Nasal Oxygen Flow Rate 2.5l Magnesium TSH 0.61 D Free T4 1.07 D Free T3 3.0 12/05/16 06:00 ABG pH ABG pCO2 at Pt Temp ABG pO2 at Pt Temp O2 Delivery Device Oxygen Flow Rate Magnesium 1.8 TSH Free T4 Free T3 Chest Clear No wheezing or rhonchi Cor RRR with increased rate Telemetry Sinus rhythm with periods of tachyarrhythmia Abd Soft non-tender No mass noted Ext No phlebitis No pitting edema Neuro No new focal deficit Assessment and Plan Pre-syncope Currently stable Likely multi-factorial based on cardio-pulmonary factors in addition to effects of medication MVP Stable Tachycardia Monitor Cardiology input appreciated COPD/Asthma Chronic stable Possible BRAVO Follow up Elevated pCO2 on ABG noted ?Empiric trial of Bi-PAP while here? HTN Stable Hypothyroid Stable TSH Chronic Pain On Rx Chronic constipation On Movantik Fatigue Multi-factorial Depression On Rx Vertigo Responded to Salvador maneuver Hypomagnesemia Replete as needed Multiple abdominal surgeries Stable Full extensive problem list as per old charts
[2016-12-05] MEDS: oxyCODONE HCL 5 MG TABLET PO PRN (16:03)
[2016-12-05] MEDS: SODIUM CHLORIDE 1,000 ML IV SCH (19:30)
--- NOTE | 2016-12-05 19:45 | PN ---
Progress Note, Physician History of Present Illness: Palpitations and near syncope has resolved, no events on telemetry. - Current Medication List Current Medications: Active Medications Acetaminophen (Tylenol -) 650 mg PO Q4H PRN PRN Reason: FEVER OR PAIN Albuterol Sulfate (Ventolin 0.083% Nebulizer Soln -) 1 amp NEB Q4H PRN PRN Reason: SHORT OF BREATH/WHEEZING Alprazolam (Xanax -) 1 mg PO DAILY PRN PRN Reason: ANXIETY Last Admin: 12/04/16 21:18 Dose: 1 mg Ascorbic Acid (Vitamin C -) 1,000 mg PO DAILY [facility] Last Admin: 12/05/16 09:40 Dose: 1,000 mg Aspirin (Asa -) 81 mg PO DAILY [facility] Last Admin: 12/05/16 09:40 Dose: 81 mg B12/Folic Ac/Intrin Fact/Iron/Vit C (Niferex-150 Forte -) 1 each PO DAILY [facility] Last Admin: 12/05/16 09:40 Dose: 1 each Budesonide/Formoterol Fumarate (Symbicort 160/4.5mcg -) 2 puff IH BID [facility] Last Admin: 12/05/16 09:41 Dose: 2 inh Cholecalciferol (Vitamin D3 -) 2,000 unit PO DAILY [facility] Last Admin: 12/05/16 09:40 Dose: 2,000 unit Cyclobenzaprine HCl (Flexeril -) 5 mg PO TID [facility] Last Admin: 12/05/16 15:42 Dose: 5 mg Diltiazem HCl (Cardizem Cd -) 240 mg PO HS [facility] Last Admin: 12/04/16 21:21 Dose: 240 mg Sodium Chloride (Normal Saline -) 1,000 mls @ 42 mls/hr IV ASDIR [facility] Last Admin: 12/04/16 21:22 Dose: 42 mls/hr Levothyroxine Sodium (Synthroid -) 25 mcg PO DAILY@0700 [facility] Last Admin: 12/05/16 06:22 Dose: 25 mcg Montelukast Sodium (Singulair -) 10 mg PO DAILY [facility] Last Admin: 12/05/16 09:40 Dose: 10 mg Nitroglycerin (Nitrostat -) 0.4 mg SL Q5M PRN PRN Reason: CHEST PAIN Non-Formulary Medication (Naloxegol Oxalate [Movantik]) 25 mg PO DAILY [facility] Nortriptyline HCl (Pamelor -) 50 mg PO HS [facility] Last Admin: 12/04/16 21:22 Dose: 50 mg Ondansetron HCl (Zofran Injection) 4 mg IVPB Q6H PRN PRN Reason: NAUSEA Oxycodone HCl (Roxicodone -) 5 mg PO Q6H PRN PRN Reason: PAIN Last Admin: 12/05/16 16:03 Dose: 5 mg Polyethylene Glycol (Miralax (For Daily Use) -) 17 gm PO BID [facility] Last Admin: 12/05/16 10:42 Dose: 17 gm Potassium Chloride (K-Dur -) 10 meq PO BID [facility] Last Admin: 12/05/16 09:40 Dose: 10 meq Quinapril HCl (Accupril -) 10 mg PO DAILY [facility] Last Admin: 12/05/16 09:43 Dose: 10 mg Ranitidine HCl (Zantac -) 150 mg PO HS [facility] Last Admin: 12/04/16 21:18 Dose: 150 mg Senna (Senna -) 2 tab PO [facility] Last Admin: 12/04/16 21:17 Dose: Not Given Sertraline HCl (Zoloft -) 100 mg PO DAILY [facility] Last Admin: 12/05/16 09:39 Dose: 100 mg Sumatriptan Succinate (Imitrex -) 100 mg PO PRN PRN PRN Reason: MIGRAINE Zolpidem Tartrate (Ambien -) 5 mg PO HS PRN Last Admin: 12/04/16 23:32 Dose: 5 mg - Objective Vital Signs: Vital Signs Temperature 98.2 F 12/05/16 18:00 Pulse Rate 91 H 12/05/16 18:00 Respiratory Rate 19 12/05/16 18:00 Blood Pressure 115/55 12/05/16 18:00 O2 Sat by Pulse Oximetry (%) 94 L 12/05/16 12:00 Constitutional: Yes: No Distress, Calm Neck: Yes: Supple Cardiovascular: Yes: Regular Rate and Rhythm Respiratory: Yes: Regular, Diminished, On Nasal O2 Gastrointestinal: Yes: Normal Bowel Sounds, Soft, Abdomen, Obese Edema: No Labs: CBC, BMP 12/03/16 05:35 12/03/16 05:35 INR, PTT INR 0.99 (0.82-1.09) 12/02/16 12:50 - ....Imaging EKG: Report Reviewed (Tele: No events) Problem List - Problems (1) Pre-syncope Code(s): R55 - SYNCOPE AND COLLAPSE (2) Tachycardia Code(s): R00.0 - TACHYCARDIA, UNSPECIFIED (3) Mitral valve prolapse Code(s): I34.1 - NONRHEUMATIC MITRAL (VALVE) PROLAPSE (4) HTN (hypertension) Code(s): I10 - ESSENTIAL (PRIMARY) HYPERTENSION Qualifiers: Hypertension type: essential hypertension Qualified Code(s): I10 - Essential (primary) hypertension (5) Hypothyroid Code(s): E03.9 - HYPOTHYROIDISM, UNSPECIFIED Qualifiers: Hypothyroidism type: unspecified Qualified Code(s): E03.9 - Hypothyroidism, unspecified Assessment/Plan 11/04/2016 Echo: Normal LV size and fxn, mod TR 1. Palpitations underlying sinus tachycardia improved 2. Near syncope with history of MVP 3. Recent right humeral fracture - post repair 4. History of HTN 5. Hypothyroidism 6. Likely Obstructive Sleep Apnea/Obesity Hypoventilation Syndrome PLAN: 1. Continue Cardizem CD 240 PM, ASA 81 qd and Quinapril 10 AM 2. Continue DVT and GI prophylaxis 3. Encourage ambulation 4. She will need outpt PSG and PFTs to get PAP device
[2016-12-05] MEDS: RANITIDINE HCL 150 MG TABLET (FP) PO SCH (22:38)
[2016-12-05] MEDS: SENNOSIDES 8.6MG TABLET (FP) PO SCH (22:38)
[2016-12-05] MEDS: NORTRIPTYLINE HCL 25 MG CAPSULE PO SCH (22:38)
[2016-12-05] MEDS: ZOLPIDEM TARTRATE 5 MG TABLET PO PRN (22:38)
[2016-12-06] MEDS: LEVOTHYROXINE NA 25 MCG TABLET (FP) PO SCH (06:08)
[2016-12-06] MEDS: CYCLOBENZAPRINE HCL 10 MG TABLET (FP) PO SCH ×3 (06:08→22:09)
[2016-12-06] MEDS: oxyCODONE HCL 5 MG TABLET PO PRN ×2 (06:51→12:02)
[2016-12-06] MEDS: BUDESONIDE/FORMETEROL FUMARATE 160/4.5 mcg INHALER IH SCH ×2 (10:03→22:08)
--- NOTE | 2016-12-06 10:22 | PN ---
Progress Note (short form) - Note Progress Note: Patient seen and examined. Chart reviewed. Patient known to me from previous admissions. Medications, labs and it sales consultant notes reviewed. Currently sitting up in bed, awake alert and appropriate. Pain persists, but is tolerable. Denies new vertigo, chest discomfort, dyspnea or pre-syncope Selected Entries 12/06/16 12/06/16 12/06/16 06:00 07:45 07:49 Temperature 97.7 F Pulse Rate 86 Respiratory 20 Rate Blood Pressure 107/57 O2 Sat by Pulse 97 Oximetry (%) Oxygen Delivery Nasal Cannula Method Oxygen Flow 2 Rate Chest Clear No wheezing or rhonchi Cor RRR with increased rate Telemetry Sinus rhythm with fewer periods of tachycardia Abd Soft non-tender No mass noted Ext No phlebitis No pitting edema Neuro No new focal deficit Assessment and Plan Pre-syncope Currently stable Likely multi-factorial based on cardio-pulmonary factors in addition to effects of medication MVP Stable Tachycardia Monitor Cardiology input appreciated COPD/Asthma Chronic stable Possible BRAVO Follow up Elevated pCO2 on ABG noted ?Empiric trial of Bi-PAP while here? HTN Stable Hypothyroid Stable TSH Chronic Pain On Rx Chronic constipation On Movantik Fatigue Multi-factorial Depression On Rx Vertigo Responded to Salvador maneuver Hypomagnesemia Replete as needed Multiple abdominal surgeries Stable Full extensive problem list as per old charts
--- NOTE | 2016-12-06 10:28 | PN ---
Progress Note, Physician History of Present Illness: Palpitations and near syncope has resolved, no events on telemetry, ambulates without sxs. - Current Medication List Current Medications: Active Medications Acetaminophen (Tylenol -) 650 mg PO Q4H PRN PRN Reason: FEVER OR PAIN Albuterol Sulfate (Ventolin 0.083% Nebulizer Soln -) 1 amp NEB Q4H PRN PRN Reason: SHORT OF BREATH/WHEEZING Alprazolam (Xanax -) 1 mg PO DAILY PRN PRN Reason: ANXIETY Last Admin: 12/04/16 21:18 Dose: 1 mg Ascorbic Acid (Vitamin C -) 1,000 mg PO DAILY [facility] Last Admin: 12/05/16 09:40 Dose: 1,000 mg Aspirin (Asa -) 81 mg PO DAILY [facility] Last Admin: 12/05/16 09:40 Dose: 81 mg B12/Folic Ac/Intrin Fact/Iron/Vit C (Niferex-150 Forte -) 1 each PO DAILY [facility] Last Admin: 12/05/16 09:40 Dose: 1 each Budesonide/Formoterol Fumarate (Symbicort 160/4.5mcg -) 2 puff IH BID [facility] Last Admin: 12/05/16 22:45 Dose: 2 inh Cholecalciferol (Vitamin D3 -) 2,000 unit PO DAILY [facility] Last Admin: 12/05/16 09:40 Dose: 2,000 unit Cyclobenzaprine HCl (Flexeril -) 5 mg PO TID [facility] Last Admin: 12/06/16 06:08 Dose: 5 mg Diltiazem HCl (Cardizem Cd -) 240 mg PO HS [facility] Last Admin: 12/05/16 22:36 Dose: 240 mg Sodium Chloride (Normal Saline -) 1,000 mls @ 42 mls/hr IV ASDIR [facility] Last Admin: 12/05/16 19:30 Dose: 42 mls/hr Levothyroxine Sodium (Synthroid -) 25 mcg PO DAILY@0700 [facility] Last Admin: 12/06/16 06:08 Dose: 25 mcg Montelukast Sodium (Singulair -) 10 mg PO DAILY [facility] Last Admin: 12/05/16 09:40 Dose: 10 mg Nitroglycerin (Nitrostat -) 0.4 mg SL Q5M PRN PRN Reason: CHEST PAIN Non-Formulary Medication (Naloxegol Oxalate [Movantik]) 25 mg PO DAILY [facility] Nortriptyline HCl (Pamelor -) 50 mg PO HS [facility] Last Admin: 12/05/16 22:38 Dose: 50 mg Ondansetron HCl (Zofran Injection) 4 mg IVPB Q6H PRN PRN Reason: NAUSEA Oxycodone HCl (Roxicodone -) 5 mg PO Q6H PRN PRN Reason: PAIN Last Admin: 12/06/16 06:51 Dose: 5 mg Polyethylene Glycol (Miralax (For Daily Use) -) 17 gm PO BID [facility] Last Admin: 12/05/16 22:37 Dose: 17 gm Potassium Chloride (K-Dur -) 10 meq PO BID [facility] Last Admin: 12/05/16 22:37 Dose: 10 meq Quinapril HCl (Accupril -) 10 mg PO DAILY [facility] Last Admin: 12/05/16 09:43 Dose: 10 mg Ranitidine HCl (Zantac -) 150 mg PO [facility] Last Admin: 12/05/16 22:38 Dose: 150 mg Senna (Senna -) 2 tab PO [facility] Last Admin: 12/05/16 22:38 Dose: Not Given Sertraline HCl (Zoloft -) 100 mg PO DAILY [facility] Last Admin: 12/05/16 09:39 Dose: 100 mg Sumatriptan Succinate (Imitrex -) 100 mg PO PRN PRN PRN Reason: MIGRAINE Zolpidem Tartrate (Ambien -) 5 mg PO HS PRN Last Admin: 12/05/16 22:38 Dose: 5 mg - Objective Vital Signs: Vital Signs Temperature 97.7 F 12/06/16 06:00 Pulse Rate 86 12/06/16 07:45 Respiratory Rate 20 12/06/16 07:45 Blood Pressure 107/57 12/06/16 07:45 O2 Sat by Pulse Oximetry (%) 97 12/06/16 07:49 Constitutional: Yes: No Distress, Calm Neck: Yes: Supple Cardiovascular: Yes: Regular Rate and Rhythm Respiratory: Yes: Regular, CTA Bilaterally Gastrointestinal: Yes: Normal Bowel Sounds, Soft Edema: No Labs: CBC, BMP 12/03/16 05:35 12/03/16 05:35 INR, PTT INR 0.99 (0.82-1.09) 12/02/16 12:50 - ....Imaging EKG: Report Reviewed (Tele: SR) Problem List - Problems (1) Pre-syncope Code(s): R55 - SYNCOPE AND COLLAPSE (2) Tachycardia Code(s): R00.0 - TACHYCARDIA, UNSPECIFIED (3) Mitral valve prolapse Code(s): I34.1 - NONRHEUMATIC MITRAL (VALVE) PROLAPSE (4) HTN (hypertension) Code(s): I10 - ESSENTIAL (PRIMARY) HYPERTENSION Qualifiers: Hypertension type: essential hypertension Qualified Code(s): I10 - Essential (primary) hypertension (5) Hypothyroid Code(s): E03.9 - HYPOTHYROIDISM, UNSPECIFIED Qualifiers: Hypothyroidism type: unspecified Qualified Code(s): E03.9 - Hypothyroidism, unspecified Assessment/Plan 11/04/2016 Echo: Normal LV size and fxn, mod TR 1. Palpitations underlying sinus tachycardia improved 2. Near syncope with history of MVP 3. Recent right humeral fracture - post repair 4. History of HTN 5. Hypothyroidism 6. Likely Obstructive Sleep Apnea/Obesity Hypoventilation Syndrome PLAN: 1. Continue Cardizem CD 240 qhs, ASA 81 qd and Quinapril 10 AM 2. Continue DVT and GI prophylaxis 3. Encourage ambulation 4. She will need outpt PSG and PFTs to get PAP device 5. D/c planning
[2016-12-06] MEDS: ASCORBIC ACID 500 MG TABLET (FP) PO SCH (10:34)
[2016-12-06] MEDS: POTASSIUM CHLORIDE TABS 10 MEQ TABLET.ER (FP) PO SCH ×2 (10:34→22:09)
[2016-12-06] MEDS: ASPIRIN 81 MG CHEWABLE TABLETS PO SCH (10:34)
[2016-12-06] MEDS: CHOLECALCIFEROL (VITAMIN D3) 1,000 UNIT TABLET (FP) PO SCH (10:35)
[2016-12-06] MEDS: SERTRALINE HCL 50 MG TABLET (FP) PO SCH (10:36)
--- NOTE | 2016-12-06 11:34 | PN ---
Progress Note (short form) - Note Progress Note: PULMONARY Feels better. Denies shortness of breath, cough or wheezing. Last Vital Signs Temp Pulse Resp BP Pulse Ox 97.7 F 86 20 107/57 97 12/06/16 06:00 12/06/16 07:45 12/06/16 07:45 12/06/16 07:45 12/06/16 07:49 Gen: NAD at rest Heart: RRR Lung: bibasilar rales Abd: soft, nontender Ext: no edema CBC, BMP 12/03/16 05:35 12/03/16 05:35 Active Medications Acetaminophen (Tylenol -) 650 mg PO Q4H PRN PRN Reason: FEVER OR PAIN Albuterol Sulfate (Ventolin 0.083% Nebulizer Soln -) 1 amp NEB Q4H PRN PRN Reason: SHORT OF BREATH/WHEEZING Alprazolam (Xanax -) 1 mg PO DAILY PRN PRN Reason: ANXIETY Last Admin: 12/04/16 21:18 Dose: 1 mg Ascorbic Acid (Vitamin C -) 1,000 mg PO DAILY [facility] Last Admin: 12/06/16 10:34 Dose: 1,000 mg Aspirin (Asa -) 81 mg PO DAILY [facility] Last Admin: 12/06/16 10:34 Dose: 81 mg B12/Folic Ac/Intrin Fact/Iron/Vit C (Niferex-150 Forte -) 1 each PO DAILY [facility] Last Admin: 12/05/16 09:40 Dose: 1 each Budesonide/Formoterol Fumarate (Symbicort 160/4.5mcg -) 2 puff IH BID [facility] Last Admin: 12/05/16 22:45 Dose: 2 inh Cholecalciferol (Vitamin D3 -) 2,000 unit PO DAILY [facility] Last Admin: 12/06/16 10:35 Dose: 2,000 unit Cyclobenzaprine HCl (Flexeril -) 5 mg PO TID [facility] Last Admin: 12/06/16 06:08 Dose: 5 mg Diltiazem HCl (Cardizem Cd -) 240 mg PO HS [facility] Last Admin: 12/05/16 22:36 Dose: 240 mg Sodium Chloride (Normal Saline -) 1,000 mls @ 42 mls/hr IV ASDIR [facility] Last Admin: 12/05/16 19:30 Dose: 42 mls/hr Levothyroxine Sodium (Synthroid -) 25 mcg PO DAILY@0700 [facility] Last Admin: 12/06/16 06:08 Dose: 25 mcg Montelukast Sodium (Singulair -) 10 mg PO DAILY [facility] Last Admin: 12/05/16 09:40 Dose: 10 mg Nitroglycerin (Nitrostat -) 0.4 mg SL Q5M PRN PRN Reason: CHEST PAIN Non-Formulary Medication (Naloxegol Oxalate [Movantik]) 25 mg PO DAILY [facility] Nortriptyline HCl (Pamelor -) 50 mg PO [facility] Last Admin: 12/05/16 22:38 Dose: 50 mg Ondansetron HCl (Zofran Injection) 4 mg IVPB Q6H PRN PRN Reason: NAUSEA Oxycodone HCl (Roxicodone -) 5 mg PO Q6H PRN PRN Reason: PAIN Last Admin: 12/06/16 06:51 Dose: 5 mg Polyethylene Glycol (Miralax (For Daily Use) -) 17 gm PO BID [facility] Last Admin: 12/05/16 22:37 Dose: 17 gm Potassium Chloride (K-Dur -) 10 meq PO BID [facility] Last Admin: 12/06/16 10:34 Dose: 10 meq Quinapril HCl (Accupril -) 10 mg PO DAILY [facility] Last Admin: 12/05/16 09:43 Dose: 10 mg Ranitidine HCl (Zantac -) 150 mg PO HS [facility] Last Admin: 12/05/16 22:38 Dose: 150 mg Senna (Senna -) 2 tab PO [facility] Last Admin: 12/05/16 22:38 Dose: Not Given Sertraline HCl (Zoloft -) 100 mg PO DAILY [facility] Last Admin: 12/06/16 10:36 Dose: 100 mg Sumatriptan Succinate (Imitrex -) 100 mg PO PRN PRN PRN Reason: MIGRAINE Zolpidem Tartrate (Ambien -) 5 mg PO HS PRN Last Admin: 12/05/16 22:38 Dose: 5 mg A/P Near Syncope Asthma Hypoxia Atelectasis Likely Obstructive Sleep Apnea Likely Obesity Hypoventilation Syndrome - likely has BRAVO/OHS with bibasilar atelectasis when at rest - her ABG does not qualify her for BiPAP placement - she will need outpt PSG and PFTs to get PAP device - incentive spirometry - outpt f/u, no further inpatient pulmonary work up at this time - DVT prophylaxis Problem List - Problems (1) Pre-syncope Code(s): R55 - SYNCOPE AND COLLAPSE (2) Mitral valve prolapse Code(s): I34.1 - NONRHEUMATIC MITRAL (VALVE) PROLAPSE (3) Asthma Code(s): J45.909 - UNSPECIFIED ASTHMA, UNCOMPLICATED (4) HTN (hypertension) Code(s): I10 - ESSENTIAL (PRIMARY) HYPERTENSION Qualifiers: Hypertension type: essential hypertension Qualified Code(s): I10 - Essential (primary) hypertension (5) Hypothyroid Code(s): E03.9 - HYPOTHYROIDISM, UNSPECIFIED Qualifiers: Hypothyroidism type: unspecified Qualified Code(s): E03.9 - Hypothyroidism, unspecified (6) Atelectasis Code(s): J98.11 - ATELECTASIS
[2016-12-06] MEDS ORDERED: PT OWN MED DRAWER 7, Y5N ONE ×3 (11:55→22:07)
[2016-12-06] MEDS: MONTELUKAST NA 10 MG TABLET PO SCH (12:00)
[2016-12-06] MEDS: FE POLYSAC/CYANOCOBAL/FA COMBO CAPSULE PO SCH (12:01)
[2016-12-06] MEDS: POLYETHYLENE GLYCOL 3350 119 GM BTL PO SCH ×2 (12:01→22:07)
[2016-12-06] MEDS: QUINAPRIL HCL 10 MG TABLET (FP) PO SCH (12:01)
[2016-12-06] MEDS: SENNOSIDES 8.6MG TABLET (FP) PO SCH (22:08)
[2016-12-06] MEDS: NORTRIPTYLINE HCL 25 MG CAPSULE PO SCH (22:09)
[2016-12-06] MEDS: RANITIDINE HCL 150 MG TABLET (FP) PO SCH (22:09)
[2016-12-06] MEDS: ZOLPIDEM TARTRATE 5 MG TABLET PO PRN (22:40)
[2016-12-07] MEDS: CYCLOBENZAPRINE HCL 10 MG TABLET (FP) PO SCH ×2 (06:08→14:02)
[2016-12-07] MEDS: LEVOTHYROXINE NA 25 MCG TABLET (FP) PO SCH (06:08)
[2016-12-07] MEDS ORDERED: PT OWN MED DRAWER 7, Y5N ONE (09:07)
[2016-12-07] MEDS: CHOLECALCIFEROL (VITAMIN D3) 1,000 UNIT TABLET (FP) PO SCH (09:13)
[2016-12-07] MEDS: MONTELUKAST NA 10 MG TABLET PO SCH (09:13)
[2016-12-07] MEDS: SERTRALINE HCL 50 MG TABLET (FP) PO SCH (09:13)
[2016-12-07] MEDS: ASPIRIN 81 MG CHEWABLE TABLETS PO SCH (09:14)
[2016-12-07] MEDS: QUINAPRIL HCL 10 MG TABLET (FP) PO SCH (09:14)
[2016-12-07] MEDS: POTASSIUM CHLORIDE TABS 10 MEQ TABLET.ER (FP) PO SCH (09:14)
[2016-12-07] MEDS: ASCORBIC ACID 500 MG TABLET (FP) PO SCH (09:14)
[2016-12-07] MEDS: FE POLYSAC/CYANOCOBAL/FA COMBO CAPSULE PO SCH (09:16)
[2016-12-07] MEDS: POLYETHYLENE GLYCOL 3350 119 GM BTL PO SCH (09:21)
[2016-12-07] MEDS: BUDESONIDE/FORMETEROL FUMARATE 160/4.5 mcg INHALER IH SCH (09:21)
--- NOTE | 2016-12-07 10:03 | DS ---
Physical Examination Vital Signs: Vital Signs Temperature 98.2 F 12/07/16 08:00 Pulse Rate 104 H 12/07/16 08:00 Respiratory Rate 16 12/07/16 08:00 Blood Pressure 124/76 12/07/16 08:00 O2 Sat by Pulse Oximetry (%) 94 L 12/07/16 06:00 Constitutional: Yes: Calm, Pallor Cardiovascular: Yes: Regular Rate and Rhythm Respiratory: Yes: Regular, Diminished. No: Rales, Rhonchi Gastrointestinal: Yes: Soft Edema: No Neurological: Yes: Alert, Oriented Labs: CBC, BMP 12/03/16 05:35 12/03/16 05:35 Discharge Summary Reason For Visit: WEAKNESS,HYPOMAGNESEMIA Current Active Problems Acute exacerbation COPD Obstructive sleep apnea (Acute) Exogenous obesity (Acute) Pre-syncope (Acute) Tachycardia (Acute) Vertigo (Acute) Weakness (Acute) Hypomagnesemia (Chronic) Procedures: Principal: Emergency treatment for SOB and Tachycardia Other Procedures: Xrays, Serial troponin ; EKG; IV Magnesium; Cardiology and Pulmonary MD Hospital Course: Gradully imprroing; Sleep Apnea test as outpatient. Condition: Improved - Instructions Diet, Activity, Other Instructions: No added salt. Try to limit sweets and carbs Dr. Rodgers within [address] Bolanos after sleep apnea test is completed. I will arrange for sleep apnea test. Referrals: Cici Miguel MD [Staff Physician] - Jong Rodgers MD [Primary Care Provider] - Camilo Bolanos MD, MD [Staff Physician] - Disposition: VNS/HOME HEALTH CARE - Home Medications Comprehensive Discharge Medication List: Ambulatory Orders Ascorbic Acid [C-1000] 1,000 mg PO DAILY 11/02/16 Aspirin [ASA -] 81 mg PO DAILY 11/02/16 Cholecalciferol (Vitamin D3) [Vitamin D3] 2,000 unit PO DAILY 11/02/16 Diltiazem HCl [Diltiazem 24Hr Cd] 240 mg PO HS 11/02/16 Docusate Sodium [Dok] 100 mg PO ASDIR 11/02/16 Iron Ps Cmplx/Vit B12/FA [Ferrex 150 Forte Capsule] 1 each PO DAILY 11/02/16 Levothyroxine [Synthroid -] 25 mcg PO DAILY 11/02/16 Montelukast Na [Singulair -] 10 mg PO DAILY 11/02/16 Naloxegol Oxalate [Movantik] 25 mg PO DAILY 11/02/16 Nitroglycerin [Nitrostat] 0.4 mg SL PRN 11/02/16 Nortriptyline HCl [Pamelor -] 50 mg PO HS 11/02/16 Ranitidine [Zantac -] 150 mg PO HS 11/02/16 Sennosides [Senna -] 2 tab PO HS 11/02/16 Sertraline HCl [Zoloft -] 100 mg PO DAILY 11/02/16 Sumatriptan Succinate [Imitrex -] 100 mg PO PRN 11/02/16 Alprazolam [Xanax] 1 mg PO DAILY PRN #0 tablet MDD 1 11/10/16 Oxycodone HCl [Roxicodone -] 5 mg PO TID #0 11/10/16 Polyethylene Glycol 3350 [Miralax 119 gm Btl -] 17 gm PO BID bottle 11/10/16 Potassium Chloride [K-Dur -] 10 meq PO BID tablet.er 11/10/16 Acetaminophen [Tylenol .Regular Strength -] 650 mg PO Q4H PRN #0 tablet Albuterol 0.083% Nebulizer Iris [Ventolin 0.083% Nebulizer Soln -] 1 amp NEB Q4H PRN #0 amp 12/07/16 Budesonide/Formeterol Fumarate [SYMBICORT 160/4.5mcg -] 2 puff IH BID #1 inhaler 12/07/16 Quinapril HCl [Accupril -] 10 mg PO DAILY #30 tablet 12/07/16
--- NOTE | 2016-12-07 10:04 | PN ---
Progress Note, Physician Chief Complaint: Not in distress History of Present Illness: Patient was seen and examined. Awake and alert. Chart was reviewed Denies chest pain, SOB or palpitation - Current Medication List Current Medications: Active Medications Acetaminophen (Tylenol -) 650 mg PO Q4H PRN PRN Reason: FEVER OR PAIN Last Admin: 12/07/16 09:20 Dose: 650 mg Albuterol Sulfate (Ventolin 0.083% Nebulizer Soln -) 1 amp NEB Q4H PRN PRN Reason: SHORT OF BREATH/WHEEZING Ascorbic Acid (Vitamin C -) 1,000 mg PO DAILY [facility] Last Admin: 12/07/16 09:14 Dose: 1,000 mg Aspirin (Asa -) 81 mg PO DAILY [facility] Last Admin: 12/07/16 09:14 Dose: 81 mg B12/Folic Ac/Intrin Fact/Iron/Vit C (Niferex-150 Forte -) 1 each PO DAILY [facility] Last Admin: 12/07/16 09:16 Dose: 1 each Budesonide/Formoterol Fumarate (Symbicort 160/4.5mcg -) 2 puff IH BID [facility] Last Admin: 12/07/16 09:21 Dose: 2 inh Cholecalciferol (Vitamin D3 -) 2,000 unit PO DAILY [facility] Last Admin: 12/07/16 09:13 Dose: 2,000 unit Cyclobenzaprine HCl (Flexeril -) 5 mg PO TID [facility] Last Admin: 12/07/16 06:08 Dose: 5 mg Diltiazem HCl (Cardizem Cd -) 240 mg PO [facility] Last Admin: 12/06/16 22:09 Dose: 240 mg Levothyroxine Sodium (Synthroid -) 25 mcg PO DAILY@0700 [facility] Last Admin: 12/07/16 06:08 Dose: 25 mcg Montelukast Sodium (Singulair -) 10 mg PO DAILY [facility] Last Admin: 12/07/16 09:13 Dose: 10 mg Nitroglycerin (Nitrostat -) 0.4 mg SL Q5M PRN PRN Reason: CHEST PAIN Non-Formulary Medication (Naloxegol Oxalate [Movantik]) 25 mg PO DAILY [facility] Nortriptyline HCl (Pamelor -) 50 mg PO [facility] Last Admin: 12/06/16 22:09 Dose: 50 mg Ondansetron HCl (Zofran Injection) 4 mg IVPB Q6H PRN PRN Reason: NAUSEA Polyethylene Glycol (Miralax (For Daily Use) -) 17 gm PO BID [facility] Last Admin: 12/07/16 09:21 Dose: Not Given Potassium Chloride (K-Dur -) 10 meq PO BID [facility] Last Admin: 12/07/16 09:14 Dose: 10 meq Quinapril HCl (Accupril -) 10 mg PO DAILY [facility] Last Admin: 12/07/16 09:14 Dose: 10 mg Ranitidine HCl (Zantac -) 150 mg PO HS [facility] Last Admin: 12/06/16 22:09 Dose: 150 mg Senna (Senna -) 2 tab PO [facility] Last Admin: 12/06/16 22:08 Dose: Not Given Sertraline HCl (Zoloft -) 100 mg PO DAILY [facility] Last Admin: 12/07/16 09:13 Dose: 100 mg Sumatriptan Succinate (Imitrex -) 100 mg PO PRN PRN PRN Reason: MIGRAINE Last Admin: 12/06/16 17:51 Dose: 100 mg - Objective Vital Signs: Vital Signs Temperature 98.2 F 12/07/16 08:00 Pulse Rate 104 H 12/07/16 08:00 Respiratory Rate 16 12/07/16 08:00 Blood Pressure 124/76 12/07/16 08:00 O2 Sat by Pulse Oximetry (%) 94 L 12/07/16 06:00 Neck: Yes: Supple Cardiovascular: Yes: Regular Rate and Rhythm, S1, S2 Respiratory: Yes: CTA Bilaterally Gastrointestinal: Yes: Normal Bowel Sounds, Soft. No: Tenderness Edema: No Problem List - Problems (1) Humeral fracture Code(s): S42.309A - UNSP FRACTURE OF SHAFT OF HUMERUS, UNSP ARM, INIT Qualifiers: Encounter type: initial encounter Humerus Location: shaft Fracture type: closed Fracture morphology: oblique Fracture alignment: displaced Laterality: right Qualified Code(s): S42.331A - Displaced oblique fracture of shaft of humerus, right arm, initial encounter for closed fracture (2) Mitral valve prolapse Code(s): I34.1 - NONRHEUMATIC MITRAL (VALVE) PROLAPSE (3) Pre-syncope Code(s): R55 - SYNCOPE AND COLLAPSE (4) Tachycardia Code(s): R00.0 - TACHYCARDIA, UNSPECIFIED (5) Weakness Code(s): R53.1 - WEAKNESS (6) HTN (hypertension) Code(s): I10 - ESSENTIAL (PRIMARY) HYPERTENSION Qualifiers: Hypertension type: essential hypertension Qualified Code(s): I10 - Essential (primary) hypertension (7) Hypothyroid Code(s): E03.9 - HYPOTHYROIDISM, UNSPECIFIED Qualifiers: Hypothyroidism type: unspecified Qualified Code(s): E03.9 - Hypothyroidism, unspecified Assessment/Plan 1. Palpitations underlying sinus tachycardia 2. Near syncope with history of MVP 3. Recent right humeral fracture - post repair 4. History of HTN 5. Hypothyroidism 6. Likely Obstructive Sleep Apnea/Obesity Hypoventilation Syndrome PLAN: 1. Continue Cardizem CD, ASA and Quinapril 2. Continue DVT and GI prophylaxis 3. Encourage ambulation 4. She will need outpt sleep study and PFTs and further plans are to follow Discharge planning Seferino Warner MD
[2016-12-07 15:27] VITALS: BP 114/82; PULSE 86; TEMP 98
== END 2016-12-07 15:01 | disposition home health service (06) ==
LOC: JER 12:03 → INTOOBSV 15:21 → JERBED 15:21 → J4W 21:43
PROVIDERS: ADMIT Internal Medicine; ATTEND Internal Medicine
DX: R00.0 Tachycardia, unspecified (principal); R55 Syncope and collapse; I10 Essential (primary) hypertension; E03.9 Hypothyroidism, unspecified; K21.9 Gastro-esophageal reflux disease without esophagitis; J45.909 Unspecified asthma, uncomplicated; K58.0 Irritable bowel syndrome with diarrhea; Z87.11 Personal history of peptic ulcer disease; I34.1 Nonrheumatic mitral (valve) prolapse; K76.0 Fatty (change of) liver, not elsewhere classified; G43.909 Migraine, unspecified, not intractable, without status migrainosus; H81.10 Benign paroxysmal vertigo, unspecified ear; I25.10 Atherosclerotic heart disease of native coronary artery without angina pectoris; M47.9 Spondylosis, unspecified; K57.90 Diverticulosis of intestine, part unspecified, without perforation or abscess without bleeding; E83.42 Hypomagnesemia; M54.16 Radiculopathy, lumbar region; M54.12 Radiculopathy, cervical region; J98.11 Atelectasis; G47.33 Obstructive sleep apnea (adult) (pediatric); E66.2 Morbid (severe) obesity with alveolar hypoventilation; Z68.30 Body mass index [BMI] 30.0-30.9, adult; R09.02 Hypoxemia; F32.9 Major depressive disorder, single episode, unspecified
CPT/HCPCS: 36415; 36600; 70450-TC; 71010-TC; 80048; 80053; 82550; 82803; 83735; 84100; 84439; 84443; 84481; 84484; 85025; 85610; 93005; 93010; 93971-TC; 94010; 97116-GP; 97161-GP; 99285-25; G0378

== ENCOUNTER 2017-11-05 13:20 | Inpatient (IN) | payer OTHER ==
--- NOTE | 2017-11-05 13:33 | PDOC ---
History of Present Illness - General History Source: Patient - History of Present Illness Initial Comments: 11/05/17 14:42 The patient is a 76 year old female with a significant past medical history of cad, htn, mvp, asthma, migraines, diverticulitis, gastritis, gerd, ibs, pud, hypothyroidism, anemia (Hx of transfusion, last Hgb was 8). and chronic low back pain (reportedly on at-home morphine pump), who presents to the emergency department via ems for complaint of progressive, weakness, lethargy, dyspnea and abdominal pain for about a week. She states the weakness gets worse when she stands. She states she sees an ENT for vertigo. The patient reportedly had labs drawn at Dr. Benedict office earlier this week. She denies bloody or dark/tarry stools. Denies trauma or falls. She denies chest pain, shortness of breath, headache and dizziness. She denies fever, chills, nausea, vomit, diarrhea and constipation. She denies dysuria, frequency , urgency and hematuria. Allergies: metronidazole, lactose Past surgical history: appendectomy, colectomy, oophorectomy, cholecystectomy PCP: Dr. Rodgers <Mini Keenan - Last Filed: 11/05/17 14:46> <Kaylah Rodriguez - Last Filed: 11/05/17 18:05> - General Stated Complaint: Blood Pressure Problem Time Seen by Provider: 11/05/17 13:33 Past History <Mini Keenan - Last Filed: 11/05/17 14:46> - Past Medical History Anemia: Yes Asthma: Yes (NO RECENT ATTACK) Cancer: No Cardiac Disorders: Yes (,MITRAL VALVE PROLAPSE) CVA: No COPD: No CHF: No Dementia: No Diabetes: No GI Disorders: Yes (H/O COLON POLYPS, acid reflux) Disorders: No HTN: Yes Hypercholesterolemia: No Liver Disease: Yes (NON ALCOHOLIC FATTY LIVER) Seizures: No Thyroid Disease: Yes - Surgical History Abdominal Surgery: Yes (SX FOR OBSTRUCTIONS AND ADHESIONS x 51 times) Appendectomy: Yes Cardiac Surgery: No Cholecystectomy: Yes GI Surgery: Yes Lung Surgery: No Neurologic Surgery: No Orthopedic Surgery: No (r shoulder replacement, then humerus fracture repair) - Immunization History Immunization Up to Date: Yes - Suicide/Smoking/Psychosocial Hx Smoking Status: No Smoking History: Never smoked Have you smoked in the past 12 months: No Number of Cigarettes Smoked Daily: 0 Hx Alcohol Use: No Drug/Substance Use Hx: No Substance Use Type: None Hx Substance Use Treatment: No <Kaylah Rodriguez - Last Filed: 11/05/17 18:05> - Past Medical History Allergies/Adverse Reactions: Allergies Allergy/AdvReac Type Severity Reaction Status Date / Time metronidazole [From Flagyl] Allergy Intermediate Swelling Verified 11/05/17 13: 25 lactose AdvReac Verified 11/05/17 13:25 fresh fruit Allergy Vomiting Uncoded 11/05/17 13:25 fresh vegetables Allergy Uncoded 11/05/17 13:25 Home Medications: Ambulatory Orders Aspirin [ASA -] 81 mg PO DAILY 11/02/16 Cholecalciferol (Vitamin D3) [Vitamin D3] 2,000 unit PO DAILY 11/02/16 Diltiazem HCl [Diltiazem 24Hr Cd] 240 mg PO HS 11/02/16 Levothyroxine [Synthroid -] 25 mcg PO DAILY 11/02/16 Montelukast Na [Singulair -] 10 mg PO DAILY 11/02/16 Nitroglycerin [Nitrostat] 0.4 mg SL PRN 11/02/16 Ranitidine [Zantac -] 150 mg PO HS 11/02/16 Sertraline HCl [Zoloft -] 100 mg PO DAILY 11/02/16 Sumatriptan Succinate [Imitrex -] 100 mg PO PRN 11/02/16 Alprazolam [Xanax] 1 mg PO DAILY PRN #0 tablet MDD 1 11/10/16 Polyethylene Glycol 3350 [Miralax 119 gm Btl -] 17 gm PO BID bottle 11/10/16 Potassium Chloride [K-Dur -] 10 meq PO BID tablet.er 11/10/16 Acetaminophen [Tylenol .Regular Strength -] 650 mg PO Q4H PRN #0 tablet Albuterol 0.083% Nebulizer Iris [Ventolin 0.083% Nebulizer Soln -] 1 amp NEB Q4H PRN #0 amp 12/07/16 Budesonide/Formeterol Fumarate [SYMBICORT 160/4.5mcg -] 2 puff IH BID #1 inhaler 12/07/16 Quinapril HCl [Accupril -] 10 mg PO DAILY #30 tablet 12/07/16 Azithromycin [Zithromax Tri-Edward (3 DAYS) -] 250 mg PO DAILY 11/05/17 Cyclobenzaprine HCl 5 mg PO BID 11/05/17 Dicyclomine HCl [Bentyl] 10 mg PO BID 11/05/17 Meclizine HCl [Antivert -] 25 mg PO TID 11/05/17 Mesalamine [Apriso] 0.375 gm PO BID 11/05/17 Ondansetron HCl [Zofran] 8 mg PO BID PRN 11/05/17 Prednisone 10 mg PO DAILY 11/05/17 Pregabalin [Lyrica] 25 mg PO BID 11/05/17 Review of Systems - Review of Systems Able to Perform ROS?: Yes Comments:: 11/05/17 14:42 GENERAL/CONSTITUTIONAL: No fever or chills. No weakness. HEAD, EYES, EARS, NOSE AND THROAT: No change in vision. No ear pain or discharge. No sore throat. GASTROINTESTINAL: No nausea, vomiting, diarrhea or constipation. GENITOURINARY: No dysuria, frequency, or change in urination. CARDIOVASCULAR: No chest pain or shortness of breath. RESPIRATORY: No cough, wheezing, or hemoptysis. MUSCULOSKELETAL: No joint or muscle swelling or pain. No neck or back pain. SKIN: No rash NEUROLOGIC: No headache, vertigo, loss of consciousness, or change in strength/ sensation. ENDOCRINE: No increased thirst. No abnormal weight change. HEMATOLOGIC/LYMPHATIC: No anemia, easy bleeding, or history of blood clots. ALLERGIC/IMMUNOLOGIC: No hives or skin allergy. <Mini Keenan - Last Filed: 11/05/17 14:46> *Physical Exam - Vital Signs Last Vital Signs Temp Pulse Resp BP Pulse Ox 97.5 F L 68 20 102/84 98 11/05/17 13:35 11/05/17 13:54 11/05/17 13:35 11/05/17 13:35 11/05/17 13:54 - Physical Exam Comments: 11/05/17 14:42 GENERAL: Awake, alert, and fully oriented, in no acute distress. Very pale in appearance. HEAD: No signs of trauma EYES: PERRLA, EOMI, sclera anicteric, conjunctiva clear ENT: Auricles normal inspection, hearing grossly normal, nares patent, oropharynx clear without exudates. Moist mucosa NECK: Normal ROM, supple, no lymphadenopathy, JVD, or masses LUNGS: Breath sounds equal, clear to auscultation bilaterally. No wheezes, and no crackles HEART: Regular rate and rhythm, normal S1 and S2, no murmurs, rubs or gallops ABDOMEN: Soft, nontender, normoactive bowel sounds. No guarding, no rebound. No masses EXTREMITIES: Normal range of motion, no edema. No clubbing or cyanosis. No cords, erythema, or tenderness NEUROLOGICAL: Normal speech, cranial nerves intact, negative pronator drift, 5/ 5 strength in all 4 extremities, normal sensation to light touch in all 4 extremities, normal cerebellar exam, normal gait, normal reflexes and tone SKIN: Warm, Dry, normal turgor, no rashes or lesions noted. <Mini Keenan - Last Filed: 11/05/17 14:46> ED Treatment Course - LABORATORY CBC & Chemistry Diagram: 11/05/17 13:46 11/05/17 13:46 - ADDITIONAL ORDERS Additional order review: Laboratory Results 11/05/17 11/05/17 11/05/17 14:26 13:46 13:46 PT with INR 10.80 INR 0.96 PTT (Actin FS) 23.0 L Sodium 139 Potassium 4.0 Chloride 103 Carbon Dioxide 27 Anion Gap 9 BUN 14 Creatinine 0.7 Creat Clearance w eGFR > 60 Random Glucose 106 Calcium 7.6 L Magnesium 1.5 L Total Bilirubin 0.2 D AST 10 L ALT 11 L Alkaline Phosphatase 104 Troponin I < 0.02 B-Natriuretic Peptide 158.57 Total Protein 5.8 L Albumin 2.5 L Lipase 98 Stool Occult Blood Negative <Mini Keenan - Last Filed: 11/05/17 14:46> - LABORATORY CBC & Chemistry Diagram: 11/05/17 13:46 11/05/17 13:46 <Kaylah Rodriguez - Last Filed: 11/05/17 18:05> Medical Decision Making - Medical Decision Making 11/05/17 14:46 Dr. Rodgers was called at this time and the patient's case was discussed. <Mini Keenan - Last Filed: 11/05/17 14:46> - Medical Decision Making 11/05/17 15:55 77-year-old female with a history of anemia requiring blood transfusion presents to the emergency department with progressive epigastric abdominal pain associated with generalized weakness and dyspnea. Vitals are unremarkable. Exam with epigastric tenderness to palpation and patient is very pale in appearance. Hemoglobin is 3.9, however stool occult is negative with brown stool. 2 units prbc ordered with the first currently running. Pt is HDS. Discussed results with PMD Dr. Rodgers. Case has been discussed with Dr. Stewart from GI and patient has been admitted to Dr. Sosa. Case discussed in detail with admitting physician including history, physical exam and ancillary studies. Admitting physician has assumed care for the patient, will follow all pending diagnostics and will complete the evaluation and treatment. <Kaylah Rodriguez - Last Filed: 11/05/17 18:05> *DC/Admit/Observation/Transfer - Attestations Scribe Attestion: 11/05/17 14:43 Documentation prepared by Mini Keenan, acting as medical practitioners for Kaylah Rodriguez MD, <Mini Keenan - Last Filed: 11/05/17 14:46> - Discharge Dispostion Admit: Yes - Attestations Physician Attestion: 11/05/17 15:59 I, Dr. Kaylah Rodriguez MD, attest that this document has been prepared under my direction and personally reviewed by me in its entirety. I further attest, that it accurately reflects all work, treatment, procedures and medical decision -making performed by me. <Kaylah Rodriguez - Last Filed: 11/05/17 18:05> Diagnosis at time of Disposition: Anemia requiring transfusions - Discharge Dispostion Condition at time of disposition: Stable
[2017-11-05 13:37] VITALS: BMI 29.2
[2017-11-05 13:54] LABS: BASO % 0.4 % (0-2.0); EOS % 0.9 % (0-4.5); HEMATOCRIT 14.4 % (32.4-45.2); MONO % 3.2 % (3.8-10.2); NEUT % 91.5 % (42.8-82.8); PLATELET COUNT 449 K/MM3 (134-434); RBC 2.08 M/mm3 (3.60-5.2); RDW 18.8 % (11.6-15.6); WHITE BLOOD COUNT 13.9 K/mm3 (4.0-10.0)
[2017-11-05 14:20] LABS: INR 0.96 (0.82-1.09); PROTHROMBIN TIME (PATIENT) 10.8 SEC (9.98-11.88)
[2017-11-05 14:24] LABS: ALBUMIN 2.5 g/dl (3.4-5.0); ANION GAP 9 (8-16); BILIRUBIN,TOTAL 0.2 mg/dL (0.2-1.0); BLOOD UREA NITROGEN 14 mg/dL (7-18); CALCIUM 7.6 mg/dL (8.5-10.1); CHLORIDE 103 mmol/L (98-107); CO2 27 mmol/L (21-32); CREATININE 0.7 mg/dL (0.55-1.02); GLUCOSE,RANDOM 106 mg/dL (74-106); LIPASE 98 U/L (73-393); MAGNESIUM 1.5 mg/dL (1.8-2.4); SGOT/AST 10 U/L (15-37); SGPT/ALT 11 U/L (12-78); SODIUM 139 mmol/L (136-145); TOT PROT 5.8 g/dl (6.4-8.2)
[2017-11-05 14:27] LABS: ALK PHOS 104 U/L (45-117); N-TERMINAL BNP 158.57 pg/ml (5-450)
[2017-11-05 14:42] LABS: HEMOGLOBIN 3.9 GM/dL (10.7-15.3); MCH 18.6 pg (25.7-33.7)
[2017-11-05] MEDS ORDERED: PANTOPRAZOLE SODIUM 40 MG VIAL IVPUSH ONE (14:51)
[2017-11-05 15:42] LABS: URINE APPEARANCE CLEAR; URINE BILIRUBIN NEGATIVE (NEGATIVE); URINE BLOOD NEGATIVE (NEGATIVE); URINE COLOR YELLOW; URINE GLUCOSE (UA) NEGATIVE (NEGATIVE); URINE KETONE TRACE (NEGATIVE); URINE LEUK ESTERASE NEGATIVE (NEGATIVE); URINE NITRITE NEGATIVE (NEGATIVE); URINE PROTEIN NEGATIVE (NEGATIVE); URINE UROBILINOGEN NEGATIVE mg/dL (0.2-1.0)
[2017-11-05] MEDS ORDERED: PANTOPRAZOLE SODIUM 40 MG VIAL ONE (15:53)
[2017-11-05] MEDS ORDERED: ALBUTEROL SO4 0.083% IH SOL 2.5 MG/3 ML VIAL.NEB. NEB PRN (16:26)
[2017-11-05] MEDS ORDERED: ONDANSETRON 4 MG/2 ML VIAL IVPUSH PRN (16:28)
[2017-11-05] MEDS ORDERED: NITROGLYCERIN SUBLINGUAL 1/150 0.4 MG TAB SL PRN (16:30)
--- NOTE | 2017-11-05 16:36 | HP ---
Admitting History and Physical - Primary Care Physician PCP: Jong Rodgers - Admission Chief Complaint: I felt weak History of Present Illness: Ms Moreland is a pleasant 77 year old female who comes with weakness and found to be anemic. She says it began around the holiday. She says the weakness started off as minimal and it has been progressive. It progressed to the point where she cannot take more than a few steps without stopping. She notes dyspnea with minimal exertion as well but was attributing this to her asthma. She says when she stands she gets very lightheaded and feels like she is going to pass out, however she has not passed out. She says she has constant abdominal pain with nausea, she says it has been progressive for the same amount of time. It radiates to her back. She says she has been very pale with this as well. She is having chills but not fevers. She denies chest pain, throwing up, diarrhea, constipation, melena, hematochezia, difficulty or pain on urination, blood in her urine, bruising, or edema. 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) Renal/: Yes: UTI Psych: Yes: Anxiety Musculoskeletal: Yes: Chronic low back pain, Osteoarthritis Endocrine: Yes: Hypothyroidism - Past Surgical History Past Surgical History: Yes: Appendectomy, Cataract Removal, Cholecystectomy, Colectomy, Colonoscopy, Oopherectomy - Smoking History Smoking history: Never smoked Have you smoked in the past 12 months: No Aproximately how many cigarettes per day: 0 - Alcohol/Substance Use Hx Alcohol Use: No History of Substance Use: reports: None - Social History ADL: Independent 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 History of Recent Travel: No Home Medications - Allergies Allergies/Adverse Reactions: Allergies Allergy/AdvReac Type Severity Reaction Status Date / Time metronidazole [From Flagyl] Allergy Intermediate Swelling Verified 11/05/17 13: 25 lactose AdvReac Verified 11/05/17 13:25 fresh fruit Allergy Vomiting Uncoded 11/05/17 13:25 fresh vegetables Allergy Uncoded 11/05/17 13:25 - Home Medications Home Medications: Ambulatory Orders Aspirin [ASA -] 81 mg PO DAILY 11/02/16 Cholecalciferol (Vitamin D3) [Vitamin D3] 2,000 unit PO DAILY 11/02/16 Diltiazem HCl [Diltiazem 24Hr Cd] 240 mg PO HS 11/02/16 Levothyroxine [Synthroid -] 25 mcg PO DAILY 11/02/16 Montelukast Na [Singulair -] 10 mg PO DAILY 11/02/16 Nitroglycerin [Nitrostat] 0.4 mg SL PRN 11/02/16 Ranitidine [Zantac -] 150 mg PO HS 11/02/16 Sertraline HCl [Zoloft -] 100 mg PO DAILY 11/02/16 Sumatriptan Succinate [Imitrex -] 100 mg PO PRN 11/02/16 Alprazolam [Xanax] 1 mg PO DAILY PRN #0 tablet MDD 1 11/10/16 Polyethylene Glycol 3350 [Miralax 119 gm Btl -] 17 gm PO BID bottle 11/10/16 Potassium Chloride [K-Dur -] 10 meq PO BID tablet.er 11/10/16 Acetaminophen [Tylenol .Regular Strength -] 650 mg PO Q4H PRN #0 tablet Albuterol 0.083% Nebulizer Iris [Ventolin 0.083% Nebulizer Soln -] 1 amp NEB Q4H PRN #0 amp 12/07/16 Budesonide/Formeterol Fumarate [SYMBICORT 160/4.5mcg -] 2 puff IH BID #1 inhaler 12/07/16 Quinapril HCl [Accupril -] 10 mg PO DAILY #30 tablet 12/07/16 Azithromycin [Zithromax Tri-Edward (3 DAYS) -] 250 mg PO DAILY 11/05/17 Cyclobenzaprine HCl 5 mg PO BID 11/05/17 Dicyclomine HCl [Bentyl] 10 mg PO BID 11/05/17 Meclizine HCl [Antivert -] 25 mg PO TID 11/05/17 Mesalamine [Apriso] 0.375 gm PO BID 11/05/17 Ondansetron HCl [Zofran] 8 mg PO BID PRN 11/05/17 Prednisone 10 mg PO DAILY 11/05/17 Pregabalin [Lyrica] 25 mg PO BID 11/05/17 Family Disease History - Family Disease History Family Disease History: CA: Father (lung), Mother (breast) Review of Systems Findings/Remarks: Full review of systems obtained, as per HPI and otherwise negative Physical Examination Vital Signs: Vital Signs Temperature 36.9 C 11/05/17 16:15 Pulse Rate 83 11/05/17 16:15 Respiratory Rate 16 11/05/17 16:15 Blood Pressure 104/74 11/05/17 16:15 O2 Sat by Pulse Oximetry (%) 96 11/05/17 16:15 Constitutional: Yes: Well Nourished, No Distress, Calm, Pallor Eyes: Yes: Conjunctiva Clear, EOM Intact, PERRL HENT: Yes: Atraumatic, Normocephalic Cardiovascular: Yes: Regular Rate and Rhythm. No: Gallop, Murmur, Rub Respiratory: Yes: Regular, CTA Bilaterally, On Nasal O2. No: Rales, Rhonchi, Wheezes Gastrointestinal: Yes: Normal Bowel Sounds, Soft, Tenderness (epigastric). No: Distention Extremities: Yes: WNL Edema: No Labs: CBC, BMP 11/05/17 13:46 11/05/17 13:46 Imaging - Results Chest X-ray: Report Reviewed, Image Reviewed EKG: Image Reviewed Problem List - Problems (1) Anemia Assessment/Plan: -patient with SEVERE microcytic anemia -states last CBC showing Hgb in the 8 (recorded at this hospital) -admit to telemetry -GI and hematology consult -CT scan abdomen ordered, evaluate for possible retroperitoneal or rectus sheath bleed -transfuse 2 units and recheck -transfuse more as needed -will place on protonix for possible UGIB Code(s): D64.9 - ANEMIA, UNSPECIFIED Qualifiers: Anemia type: unspecified type Qualified Code(s): D64.9 - Anemia, unspecified (2) Asthma Assessment/Plan: -exacerbated by low Hgb -continue home regimen -expect improvement with transfusion Code(s): J45.909 - UNSPECIFIED ASTHMA, UNCOMPLICATED Qualifiers: Asthma severity: moderate (3) HTN (hypertension) Assessment/Plan: -low normal -will continue diltiazem and quinapril but with hold parameters (hold for SBP less than 120) Code(s): I10 - ESSENTIAL (PRIMARY) HYPERTENSION Qualifiers: Hypertension type: essential hypertension Qualified Code(s): I10 - Essential (primary) hypertension (4) Hypomagnesemia Assessment/Plan: -replace -recheck in am -may still be low as blood transfusions take precedence Code(s): E83.42 - HYPOMAGNESEMIA (5) Hypothyroid Assessment/Plan: -continue synthroid Code(s): E03.9 - HYPOTHYROIDISM, UNSPECIFIED Qualifiers: Hypothyroidism type: unspecified Qualified Code(s): E03.9 - Hypothyroidism , unspecified (6) Pre-syncope Assessment/Plan: -secondary to anemia -suspect will improve with transfusion Code(s): R55 - SYNCOPE AND COLLAPSE (7) Vertigo Assessment/Plan: -continue meclizine Code(s): R42 - DIZZINESS AND GIDDINESS (8) Weakness Assessment/Plan: -seconary to anemia -transfuse -PT consult Code(s): R53.1 - WEAKNESS
[2017-11-05] MEDS ORDERED: MAGNESIUM SULFATE IN WATER 2 GM/50 ML IVPB IVPB ONE (16:52)
[2017-11-05] MEDS ORDERED: MAGNESIUM SULF 50% (8.12 MEQ/2 ML-1 GM VIAL) ONE (16:56)
--- NOTE | 2017-11-05 17:19 | CON.GI ---
Consult Consult Specialty:: Gastroenterology Referred by:: Dr Sosa Reason for Consultation:: Hb 3.5 - History of Present Illness Chief Complaint: Weakness History of Present Illness: 77F has been experiencing progressively worsening weakness leading to orthostatic dizziness that caused her to call the ambulance. She has a h /o chronic GI bleeding, pain and narcotic induced constipation with paradoxical diarrhea that resolved with Movantik. Her last colonoscopy on 03/18/16 revealed multiple ulcerations ( ? stercoral) at her perianastomotic stricture which was dilated by the scope. Her last EGD on 12/13/13 revealed erosive gastritis, GERD and retained food indicative of gastroparesis. She denies any overt bleeding. She describes brown BMs. She has epigastric pain. She has been taking NSAIDs but tells me that she has been successfully weaned off the narcotics. She had 6 transfusions over the course of 2016 ad had a right shoulder replacement complicated by a fracture after falling that required extensive hardware repair at [facility]. 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 cervical and lumbar radiculopathy. avascular necrosis of femoral head. 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 Place of : [facility] History of Recent Travel: No Home Medications - Allergies Allergies/Adverse Reactions: Allergies Allergy/AdvReac Type Severity Reaction Status Date / Time metronidazole [From Flagyl] Allergy Intermediate Swelling Verified 11/05/17 13: 25 lactose AdvReac Verified 11/05/17 13:25 fresh fruit Allergy Vomiting Uncoded 11/05/17 13:25 fresh vegetables Allergy Uncoded 11/05/17 13:25 - Home Medications Home Medications: Ambulatory Orders Aspirin [ASA -] 81 mg PO DAILY 11/02/16 Cholecalciferol (Vitamin D3) [Vitamin D3] 2,000 unit PO DAILY 11/02/16 Diltiazem HCl [Diltiazem 24Hr Cd] 240 mg PO HS 11/02/16 Levothyroxine [Synthroid -] 25 mcg PO DAILY 11/02/16 Montelukast Na [Singulair -] 10 mg PO DAILY 11/02/16 Nitroglycerin [Nitrostat] 0.4 mg SL PRN 11/02/16 Ranitidine [Zantac -] 150 mg PO HS 11/02/16 Sertraline HCl [Zoloft -] 100 mg PO DAILY 11/02/16 Sumatriptan Succinate [Imitrex -] 100 mg PO PRN 11/02/16 Alprazolam [Xanax] 1 mg PO DAILY PRN #0 tablet MDD 1 11/10/16 Polyethylene Glycol 3350 [Miralax 119 gm Btl -] 17 gm PO BID bottle 11/10/16 Potassium Chloride [K-Dur -] 10 meq PO BID tablet.er 11/10/16 Acetaminophen [Tylenol .Regular Strength -] 650 mg PO Q4H PRN #0 tablet Albuterol 0.083% Nebulizer Iris [Ventolin 0.083% Nebulizer Soln -] 1 amp NEB Q4H PRN #0 amp 12/07/16 Budesonide/Formeterol Fumarate [SYMBICORT 160/4.5mcg -] 2 puff IH BID #1 inhaler 12/07/16 Quinapril HCl [Accupril -] 10 mg PO DAILY #30 tablet 12/07/16 Azithromycin [Zithromax Tri-Edward (3 DAYS) -] 250 mg PO DAILY 11/05/17 Cyclobenzaprine HCl 5 mg PO BID 11/05/17 Dicyclomine HCl [Bentyl] 10 mg PO BID 11/05/17 Meclizine HCl [Antivert -] 25 mg PO TID 11/05/17 Mesalamine [Apriso] 0.375 gm PO BID 11/05/17 Ondansetron HCl [Zofran] 8 mg PO BID PRN 11/05/17 Prednisone 10 mg PO DAILY 11/05/17 Pregabalin [Lyrica] 25 mg PO BID 11/05/17 Family Disease History - Family Disease History Family Disease History: CA: Father (lung), Mother (breast) Review of Systems - Review of Systems Constitutional: reports: Lethargy, Weakness Eyes: reports: No Symptoms Neck: reports: No Symptoms Cardiovascular: reports: No Symptoms Respiratory: reports: Exercise Intolerance, SOB on Exertion Gastrointestinal: reports: Abdominal Pain Musculoskeletal: reports: Back Pain Physical Exam-GI Vital Signs: Vital Signs Temperature 98.4 F 11/05/17 16:15 Pulse Rate 92 H 11/05/17 17:09 Respiratory Rate 16 11/05/17 17:09 Blood Pressure 108/57 11/05/17 17:09 O2 Sat by Pulse Oximetry (%) 100 11/05/17 17:09 CBC,CMP WBC 13.9 K/mm3 (4.0-10.0) H 11/05/17 13:46 RBC 2.08 M/mm3 (3.60-5.2) L D 11/05/17 13:46 Hgb 3.9 GM/dL (10.7-15.3) L* D 11/05/17 13:46 Hct 14.4 % (32.4-45.2) L 11/05/17 13:46 MCV 69.0 fl (80-96) L D 11/05/17 13:46 MCH 18.6 pg (25.7-33.7) L 11/05/17 13:46 MCHC 27.0 g/dl (32.0-36.0) L 11/05/17 13:46 RDW 18.8 % (11.6-15.6) H D 11/05/17 13:46 Plt Count 449 K/MM3 (134-434) H D 11/05/17 13:46 MPV 8.0 fl (7.5-11.1) 11/05/17 13:46 Neutrophils % 91.5 % (42.8-82.8) H D 11/05/17 13:46 Lymphocytes % 4.0 % (8-40) L D 11/05/17 13:46 Monocytes % 3.2 % (3.8-10.2) L 11/05/17 13:46 Eosinophils % 0.9 % (0-4.5) D 11/05/17 13:46 Basophils % 0.4 % (0-2.0) 11/05/17 13:46 Sodium 139 mmol/L (136-145) 11/05/17 13:46 Potassium 4.0 mmol/L (3.5-5.1) 11/05/17 13:46 Chloride 103 mmol/L (98-107) 11/05/17 13:46 Carbon Dioxide 27 mmol/L (21-32) 11/05/17 13:46 Anion Gap 9 (8-16) 11/05/17 13:46 BUN 14 mg/dL (7-18) 11/05/17 13:46 Creatinine 0.7 mg/dL (0.55-1.02) 11/05/17 13:46 Creat Clearance w eGFR > 60 (>60) 11/05/17 13:46 Random Glucose 106 mg/dL (74-106) 11/05/17 13:46 Lactic Acid 2.8 mmol/L (0.0-2.0) H* 11/05/17 14:00 Calcium 7.6 mg/dL (8.5-10.1) L 11/05/17 13:46 Magnesium 1.5 mg/dL (1.8-2.4) L 11/05/17 13:46 Total Bilirubin 0.2 mg/dL (0.2-1.0) D 11/05/17 13:46 AST 10 U/L (15-37) L 11/05/17 13:46 ALT 11 U/L (12-78) L 11/05/17 13:46 Alkaline Phosphatase 104 U/L (45-117) 11/05/17 13:46 Troponin I < 0.02 ng/ml (0.00-0.05) 11/05/17 13:46 B-Natriuretic Peptide 158.57 pg/ml (5-450) 11/05/17 13:46 Total Protein 5.8 g/dl (6.4-8.2) L 11/05/17 13:46 Albumin 2.5 g/dl (3.4-5.0) L 11/05/17 13:46 Lipase 98 U/L (73-393) 11/05/17 13:46 Current Medications Generic Name Dose Route Start Last Admin Trade Name Freq PRN Reason Stop Dose Admin Acetaminophen 650 mg 11/05/17 16:28 Tylenol - PO Q4H PRN PAIN OR FEVER Albuterol Sulfate 1 amp 11/05/17 16:26 Ventolin 0.083% Nebulizer Soln - NEB Q4H PRN SHORT OF BREATH/WHEEZING Alprazolam 1 mg 11/05/17 16:26 Xanax - PO DAILY PRN ANXIETY Budesonide/Formoterol Fumarate 2 puff 11/05/17 22:00 Symbicort 160/4.5mcg - IH BID [facility] Cholecalciferol 2,000 unit 11/06/17 10:00 Vitamin D3 - PO DAILY TANA Cyclobenzaprine HCl 5 mg 11/05/17 22:00 Cyclobenzaprine Hcl PO BID TANA Dicyclomine HCl 10 mg 11/05/17 22:00 Bentyl - PO BID TANA Diltiazem HCl 240 mg 11/05/17 22:00 Cardizem Cd - PO HS TANA MAGNESIUM SULFATE IN WATER 2 gm in 50 mls @ 50 mls/hr 11/05/17 16:52 17:02 Magnesium Sulf 2 G/50 Ml Bag IVPB 11/05/17 17:51 50 mls/hr ONCE ONE Administration Levothyroxine Sodium 25 mcg 11/06/17 07:00 Synthroid - PO DAILY@0700 TANA Meclizine HCl 25 mg 11/05/17 22:00 Antivert - PO TID TANA Montelukast Sodium 10 mg 11/06/17 10:00 Singulair - PO DAILY TANA Nitroglycerin 0.4 mg 11/05/17 16:30 Nitrostat - SL Q5M PRN CHEST PAIN Non-Formulary Medication 0.375 gm 11/05/17 22:00 Mesalamine [Apriso] PO BID [facility] Ondansetron HCl 4 mg 11/05/17 16:28 Zofran Injection IVPUSH Q6H PRN NAUSEA Pantoprazole Sodium 40 mg 11/05/17 22:00 Protonix Iv IVPUSH BID [facility] Polyethylene Glycol 17 gm 11/05/17 22:00 Miralax (For Daily Use) - PO BID [facility] Prednisone 10 mg 11/06/17 10:00 Deltasone - PO DAILY TA[facility] Pregabalin 25 mg 11/05/17 22:00 Lyrica - PO BID [facility] Quinapril HCl 10 mg 11/06/17 10:00 Accupril - PO DAILY TANA Sertraline HCl 100 mg 11/06/17 10:00 Zoloft - PO DAILY TANA Constitutional: Yes: Calm, Pallor, Other (Pale) Eyes: Yes: Conjunctiva Clear HENT: Yes: Atraumatic Neck: Yes: Supple Cardiovascular: Yes: Regular Rate and Rhythm Respiratory: Yes: CTA Bilaterally Gastrointestinal Inspection: Yes: Scars (oblique RUQ, long midline and right oaramidline and transverse incisions) ...Auscultate: Yes: Normoactive Bowel Sounds ...Palpate: Yes: Mass (right paraumbilical pump), Tenderness, Epigastium (mild epigastric tenderness) ...Percussion: Yes: Tympanitic ...Rectal Exam: Yes: Guaiac Positive Labs: CBC, BMP 11/05/17 13:46 11/05/17 13:46 INR, PTT INR 0.96 (0.82-1.09) 11/05/17 13:46 Problem List - Problems (1) Diverticulosis Code(s): K57.90 - DVRTCLOS OF INTEST, PART UNSP, W/O PERF OR ABSCESS W/O BLEED (2) Stercoral ulcer of large intestine Code(s): K63.3 - ULCER OF INTESTINE (3) Stricture intestinal Code(s): K56.699 - OTHER INTESTNL OBST UNSP TO PARTIAL VERSUS COMPLETE OBST (4) GI bleed Assessment/Plan: Suspect recurrent bleeding from stercoral ulceration at her anastomotic stricture but cannot exclude an NSAID related bleed, bleeding from vascular ectasias, ischemic colitis, diverticuli, GERD or an ulcer among other possibilities. She may need a repeat colonoscopy and EGD but for now needs blood resuscitation. Will check retic count to exclude bone marrow failure give the lack of impressive bleeding. Code(s): K92.2 - GASTROINTESTINAL HEMORRHAGE, UNSPECIFIED Qualifiers: GI bleed type/associated pathology: melena Qualified Code(s): K92.1 - Melena
[2017-11-05] MEDS ORDERED: CYCLOBENZAPRINE HCL 5 MG TABLET PO SCH (22:00)
[2017-11-05] MEDS ORDERED: PATIENT'S OWN MEDICATION (NON-FORMULARY) (Mesalamine [Apriso] 0.375 GM) PO SCH (22:00)
[2017-11-05] MEDS ORDERED: ONDANSETRON 4 MG/2 ML VIAL ONE (22:10)
[2017-11-05] MEDS: POLYETHYLENE GLYCOL 3350 119 GM BTL PO SCH (22:21)
[2017-11-05] MEDS: MECLIZINE HCL 25 MG TABLET (FP) PO SCH (22:21)
[2017-11-05] MEDS: DICYCLOMINE HCL 10 MG CAPSULE PO SCH (22:21)
[2017-11-05] MEDS: PREGABALIN 25 MG CAPSULE PO SCH (22:21)
[2017-11-05] MEDS: PANTOPRAZOLE SODIUM 40 MG VIAL IVPUSH SCH (22:22)
[2017-11-05] MEDS: BUDESONIDE/FORMETEROL FUMARATE 160/4.5 mcg INHALER IH SCH (22:22)
[2017-11-05] MEDS ORDERED: CYCLOBENZAPRINE HCL 10 MG TABLET (FP) ONE (22:23)
[2017-11-05] MEDS ORDERED: PREGABALIN 25 MG CAPSULE ONE (22:23)
[2017-11-05] MEDS: ACETAMINOPHEN 325 MG TABLET (FP) PO PRN (23:38)
[2017-11-05] MEDS: ALPRAZolam 2 MG TABLET PO PRN (23:39)
[2017-11-06] MEDS: MECLIZINE HCL 25 MG TABLET (FP) PO SCH ×3 (06:06→21:41)
[2017-11-06] MEDS: LEVOTHYROXINE NA 25 MCG TABLET (FP) PO SCH (06:06)
[2017-11-06 07:59] LABS: BASO % 0.4 % (0-2.0); EOS % 7.8 % (0-4.5); HEMATOCRIT 20.2 % (32.4-45.2); LYMPH % 16.2 % (8-40); MCH 23.5 pg (25.7-33.7); MCHC 31.3 g/dl (32.0-36.0); MEAN CELL VOLUME 75.3 fl (80-96); MEAN PLT VOLUME 8.4 fl (7.5-11.1); MONO % 6.1 % (3.8-10.2); NEUT % 69.5 % (42.8-82.8); PLATELET COUNT 328 K/MM3 (134-434); RBC 2.68 M/mm3 (3.60-5.2); WHITE BLOOD COUNT 9.2 K/mm3 (4.0-10.0)
[2017-11-06 08:12] LABS: ALBUMIN 2.2 g/dl (3.4-5.0); ANION GAP 8 (8-16); BLOOD UREA NITROGEN 12 mg/dL (7-18); CHLORIDE 104 mmol/L (98-107); CO2 29 mmol/L (21-32); GLUCOSE,RANDOM 72 mg/dL (74-106); MAGNESIUM 2.2 mg/dL (1.8-2.4); SODIUM 141 mmol/L (136-145)
[2017-11-06 08:19] LABS: ALK PHOS 102 U/L (45-117); BILIRUBIN,TOTAL 0.7 mg/dL (0.2-1.0); CREATININE 0.7 mg/dL (0.55-1.02); PHOSPHOROUS 2.8 mg/dL (2.5-4.9); SGOT/AST 9 U/L (15-37); SGPT/ALT 11 U/L (12-78); TOT PROT 5.2 g/dl (6.4-8.2)
[2017-11-06 08:29] LABS: HEMOGLOBIN 6.3 GM/dL (10.7-15.3)
[2017-11-06] MEDS ORDERED: PATIENT'S OWN MEDICATION (NON-FORMULARY) (Sertraline Hcl [Zoloft -] 100 MG) PO SCH (10:00)
[2017-11-06] MEDS: POLYETHYLENE GLYCOL 3350 119 GM BTL PO SCH ×2 (10:33→21:42)
[2017-11-06] MEDS ORDERED: PT OWN MED DRAWER 7, Y5N ONE (10:37)
[2017-11-06] MEDS: SERTRALINE HCL 50 MG TABLET (FP) PO SCH (10:43)
[2017-11-06] MEDS: CYCLOBENZAPRINE HCL 10 MG TABLET (FP) PO SCH ×2 (10:44→21:41)
[2017-11-06] MEDS: PANTOPRAZOLE SODIUM 40 MG VIAL IVPUSH SCH ×2 (10:45→21:44)
[2017-11-06] MEDS: PREGABALIN 25 MG CAPSULE PO SCH ×2 (10:45→21:42)
[2017-11-06] MEDS: DICYCLOMINE HCL 10 MG CAPSULE PO SCH ×2 (10:45→21:41)
[2017-11-06] MEDS: predniSONE 10 MG TABLET (UD) PO SCH (10:45)
[2017-11-06] MEDS: CHOLECALCIFEROL (VITAMIN D3) 1,000 UNIT TABLET (FP) PO SCH (10:45)
[2017-11-06] MEDS: MONTELUKAST NA 10 MG TABLET PO SCH (10:45)
--- NOTE | 2017-11-06 12:21 | EKG ---
Test Reason : Blood Pressure : / mmHG Vent. Rate : 078 BPM Atrial Rate : 078 BPM P-R Int : 140 ms QRS Dur : 086 ms QT Int : 382 ms P-R-T Axes : 064 024 036 degrees QTc Int : 435 ms NORMAL SINUS RHYTHM NORMAL ECG WHEN COMPARED WITH ECG OF 02-DEC-2016 12:21, NO SIGNIFICANT CHANGE WAS FOUND Confirmed by MD RADHAMES, MANUEL ([id number]) on 11/06/2017 12:20:30 PM Referred By: Confirmed By:MANUEL RICCI MD
--- NOTE | 2017-11-06 12:38 | PN ---
Progress Note, Physician History of Present Illness: Patient still feeling weak, but slightly improved after blood transfusion yesterday. Set to get 2 more units today. No particular abd pain, does have chronic back pain, but tolerable. - Current Medication List Current Medications: Active Medications Acetaminophen (Tylenol -) 650 mg PO Q4H PRN PRN Reason: PAIN OR FEVER Last Admin: 11/05/17 23:38 Dose: 650 mg Albuterol Sulfate (Ventolin 0.083% Nebulizer Soln -) 1 amp NEB Q4H PRN PRN Reason: SHORT OF BREATH/WHEEZING Alprazolam (Xanax -) 1 mg PO DAILY PRN PRN Reason: ANXIETY Last Admin: 11/05/17 23:39 Dose: 1 mg Budesonide/Formoterol Fumarate (Symbicort 160/4.5mcg -) 2 puff IH BID [facility] Last Admin: 11/05/17 22:22 Dose: 2 puff Cholecalciferol (Vitamin D3 -) 2,000 unit PO DAILY [facility] Last Admin: 11/06/17 10:45 Dose: 2,000 unit Cyclobenzaprine HCl (Flexeril -) 5 mg PO BID [facility] Last Admin: 11/06/17 10:44 Dose: 5 mg Dicyclomine HCl (Bentyl -) 10 mg PO BID [facility] Last Admin: 11/06/17 10:45 Dose: 10 mg Diltiazem HCl (Cardizem Cd -) 240 mg PO HS [facility] Last Admin: 11/05/17 22:21 Dose: 240 mg Levothyroxine Sodium (Synthroid -) 25 mcg PO DAILY@0700 [facility] Last Admin: 11/06/17 06:06 Dose: 25 mcg Meclizine HCl (Antivert -) 25 mg PO TID [facility] Last Admin: 11/06/17 06:06 Dose: 25 mg Montelukast Sodium (Singulair -) 10 mg PO DAILY [facility] Last Admin: 11/06/17 10:45 Dose: 10 mg Nitroglycerin (Nitrostat -) 0.4 mg SL Q5M PRN PRN Reason: CHEST PAIN Non-Formulary Medication (Mesalamine [Apriso]) 0.375 gm PO BID [facility] Ondansetron HCl (Zofran Injection) 4 mg IVPUSH Q6H PRN PRN Reason: NAUSEA Pantoprazole Sodium (Protonix Iv) 40 mg IVPUSH BID [facility] Last Admin: 11/06/17 10:45 Dose: 40 mg Polyethylene Glycol (Miralax (For Daily Use) -) 17 gm PO BID [facility] Last Admin: 11/05/17 22:21 Dose: 17 gm Prednisone (Deltasone -) 10 mg PO DAILY [facility] Last Admin: 11/06/17 10:45 Dose: 10 mg Pregabalin (Lyrica -) 25 mg PO BID [facility] Last Admin: 11/06/17 10:45 Dose: 25 mg Quinapril HCl (Accupril -) 10 mg PO DAILY [facility] Sertraline HCl (Zoloft -) 100 mg PO DAILY [facility] Last Admin: 11/06/17 10:43 Dose: 100 mg Sumatriptan Succinate (Imitrex -) 100 mg PO DAILY PRN PRN Reason: HEADACHE - Objective Vital Signs: Vital Signs Temperature 99.1 F 11/06/17 09:00 Pulse Rate 85 11/06/17 09:00 Respiratory Rate 18 11/06/17 09:00 Blood Pressure 109/57 11/06/17 09:00 O2 Sat by Pulse Oximetry (%) 100 11/06/17 06:11 Constitutional: Yes: No Distress, Calm Neck: Yes: Supple, Trachea Midline Cardiovascular: Yes: Regular Rate and Rhythm, S1, S2. No: Murmur Respiratory: Yes: Regular, CTA Bilaterally. No: Rales, Rhonchi, Wheezes Gastrointestinal: Yes: Normal Bowel Sounds, Soft. No: Distention, Tenderness Edema: No Neurological: Yes: Alert, Oriented Labs: CBC, BMP 11/06/17 05:05 11/06/17 05:05 INR, PTT INR 0.96 (0.82-1.09) 11/05/17 13:46 Assessment/Plan Current Active Problems Anemia requiring transfusions (Acute) Diverticulosis (Acute) Stercoral ulcer of large intestine (Acute) Stricture intestinal (Acute) Chronic back pain CAD HTN Gastritis GERD HH IBD Hypothyroid -continue blood transfusions -GI following -anticipate egd/colonoscopy once bood counts improved
--- NOTE | 2017-11-06 12:39 | CONSULT ---
Consult Consult Specialty:: hematology/oncology Reason for Consultation:: Severe anemia, GI bleed - History of Present Illness Chief Complaint: weakness, sob History of Present Illness: is a 77 y/o female with a past medical Hx of asthma, borderline DM, chronic GI bleeding who presented with progressive weakness leading to orthostatic dizziness.On presentation in the ED, she endorsed having brown BM's , stool guiac was noted to be positive, her Hgb was noted to be 3.9 g/dl , MCV of 69 with other labs noted to be normal. On speaking with patient today, she states that she has had GI bleeding in the past, but has not taking iron supplementation. In 2017 she had shoulder replacement and a forearm fracture and increased NSAID use during this time. She was also transfused 6 units pRBC during this hospitalization. Per GI note patients " Her last colonoscopy on 03/18/16 revealed multiple ulcerations ( ? stercoral) at her perianastomotic stricture which was dilated by the scope. 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 cervical and lumbar radiculopathy. avascular necrosis of femoral head. 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 History of Recent Travel: No Home Medications - Allergies Allergies/Adverse Reactions: Allergies Allergy/AdvReac Type Severity Reaction Status Date / Time metronidazole [From Flagyl] Allergy Intermediate Swelling Verified 11/05/17 13: 25 lactose AdvReac Verified 11/05/17 13:25 fresh fruit Allergy Vomiting Uncoded 11/05/17 13:25 fresh vegetables Allergy Uncoded 11/05/17 13:25 - Home Medications Home Medications: Ambulatory Orders Aspirin [ASA -] 81 mg PO DAILY 11/02/16 Cholecalciferol (Vitamin D3) [Vitamin D3] 2,000 unit PO DAILY 11/02/16 Diltiazem HCl [Diltiazem 24Hr Cd] 240 mg PO HS 11/02/16 Levothyroxine [Synthroid -] 25 mcg PO DAILY 11/02/16 Montelukast Na [Singulair -] 10 mg PO DAILY 11/02/16 Nitroglycerin [Nitrostat] 0.4 mg SL PRN 11/02/16 Ranitidine [Zantac -] 150 mg PO HS 11/02/16 Sertraline HCl [Zoloft -] 100 mg PO DAILY 11/02/16 Sumatriptan Succinate [Imitrex -] 100 mg PO PRN 11/02/16 Alprazolam [Xanax] 1 mg PO DAILY PRN #0 tablet MDD 1 11/10/16 Polyethylene Glycol 3350 [Miralax 119 gm Btl -] 17 gm PO BID bottle 11/10/16 Potassium Chloride [K-Dur -] 10 meq PO BID tablet.er 11/10/16 Acetaminophen [Tylenol .Regular Strength -] 650 mg PO Q4H PRN #0 tablet Albuterol 0.083% Nebulizer Iris [Ventolin 0.083% Nebulizer Soln -] 1 amp NEB Q4H PRN #0 amp 12/07/16 Budesonide/Formeterol Fumarate [SYMBICORT 160/4.5mcg -] 2 puff IH BID #1 inhaler 12/07/16 Quinapril HCl [Accupril -] 10 mg PO DAILY #30 tablet 12/07/16 Azithromycin [Zithromax Tri-Edward (3 DAYS) -] 250 mg PO DAILY 11/05/17 Cyclobenzaprine HCl 5 mg PO BID 11/05/17 Dicyclomine HCl [Bentyl] 10 mg PO BID 11/05/17 Meclizine HCl [Antivert -] 25 mg PO TID 11/05/17 Mesalamine [Apriso] 0.375 gm PO BID 11/05/17 Ondansetron HCl [Zofran] 8 mg PO BID PRN 11/05/17 Prednisone 10 mg PO DAILY 11/05/17 Pregabalin [Lyrica] 25 mg PO BID 11/05/17 Family Disease History - Family Disease History Family Disease History: CA: Father (lung), Mother (breast) Review of Systems - Review of Systems Constitutional: reports: Weakness Eyes: reports: No Symptoms HENT: reports: No Symptoms Neck: reports: No Symptoms Cardiovascular: reports: No Symptoms Respiratory: reports: No Symptoms Gastrointestinal: reports: No Symptoms Genitourinary: reports: No Symptoms Breasts: reports: No Symptoms Reported Musculoskeletal: reports: No Symptoms Integumentary: reports: No Symptoms Neurological: reports: No Symptoms Endocrine: reports: No Symptoms Hematology/Lymphatic: reports: No Symptoms Psychiatric: reports: No Symptoms Physical Exam Vital Signs: Vital Signs Temperature 99.1 F 11/06/17 09:00 Pulse Rate 85 11/06/17 09:00 Respiratory Rate 18 11/06/17 09:00 Blood Pressure 109/57 11/06/17 09:00 O2 Sat by Pulse Oximetry (%) 100 11/06/17 06:11 Constitutional: Yes: Well Nourished Eyes: Yes: WNL HENT: Yes: WNL Neck: Yes: WNL Cardiovascular: Yes: WNL Respiratory: Yes: WNL Gastrointestinal: Yes: WNL, Normal Bowel Sounds ...Rectal Exam: Yes: WNL, Deferred Renal/: Yes: WNL Musculoskeletal: Yes: WNL Extremities: Yes: WNL Integumentary: Yes: WNL Neurological: Yes: WNL ...Motor Strength: WNL Psychiatric: Yes: WNL Labs: CBC, BMP 11/06/17 05:05 11/06/17 05:05 Imaging - Results Cat Scan: Report Reviewed (Does not show any indira bleeding or RP hemorrhage) Assessment/Plan 77 y/o female with Hx of chronic GI bleeding and noted to have GI junction ulcerations in the past now admitted with severe anemia requiring transfusions and concern for repeat GI bleed - would recommend transfusing patient upto a Hgb of 8 -retic count - 3.05 shows an increase from baseline and the bone marrow appears to be trying to compensate for the blood loss. This in addition to normal WBC and plt counts goes against patient having a bone marrow failure syndrome. -had a low MCV of 69 at presentation, please check iron studies- ferritin, serum iron, transferrin and TIBC -agree with repeat GI work-up with EGD and colonoscopy once counts are stabilized -hold off NSAIDS, Consider using just IV prn pain meds -CT scan does not show any indira GI bleed or RP bleed -will continue to follow closely
[2017-11-06] MEDS: SUMAtriptan SUCCINATE 50 MG TABLET PO PRN (13:32)
[2017-11-06] MEDS: QUINAPRIL HCL 10 MG TABLET (FP) PO SCH (13:32)
[2017-11-06] MEDS: BUDESONIDE/FORMETEROL FUMARATE 160/4.5 mcg INHALER IH SCH ×2 (13:33→21:44)
--- NOTE | 2017-11-06 17:34 | PN ---
GI Progress Note Subjective: GI NOte: No bleeding, in fact no BM. No pain today. Ferritin 6. Will need parenteral iron in the future. - Objective Vital Signs: Vital Signs Temperature 98.5 F 11/06/17 14:00 Pulse Rate 76 11/06/17 14:00 Respiratory Rate 20 11/06/17 14:00 Blood Pressure 119/53 11/06/17 14:00 O2 Sat by Pulse Oximetry (%) 100 11/06/17 06:11 Constitutional: Calm ...Auscultate: Yes: Normoactive Bowel Sounds ...Palpate: Yes: Soft, Other (nontender) Labs: CBC, BMP 11/06/17 05:05 11/06/17 05:05 INR, PTT INR 0.96 (0.82-1.09) 11/05/17 13:46 Laboratory Tests 11/05/17 11/06/17 11/06/17 13:46 05:05 05:05 Hgb 3.9 L* D 6.3 L* D BUN 12 Creatinine 0.7 Ferritin 6.211 L Total Bilirubin 0.7 D AST 9 L ALT 11 L Alkaline Phosphatase 102 Albumin 2.2 L Problem List - Problems (1) Diverticulosis Code(s): K57.90 - DVRTCLOS OF INTEST, PART UNSP, W/O PERF OR ABSCESS W/O BLEED (2) Stercoral ulcer of large intestine Code(s): K63.3 - ULCER OF INTESTINE (3) Stricture intestinal Code(s): K56.699 - OTHER INTESTNL OBST UNSP TO PARTIAL VERSUS COMPLETE OBST (4) GI bleed Assessment/Plan: No active bleeding observed. Suspect indolent bleeding from stercoral ulceration at her anastomotic stricture. Needs parenteral iron. retic 3%, Code(s): K92.2 - GASTROINTESTINAL HEMORRHAGE, UNSPECIFIED Qualifiers: GI bleed type/associated pathology: melena Qualified Code(s): K92.1 - Melena
[2017-11-06] MEDS: ACETAMINOPHEN 325 MG TABLET (FP) PO PRN (21:58)
[2017-11-06] MEDS: ALPRAZolam 2 MG TABLET PO PRN (22:47)
[2017-11-07] MEDS: LEVOTHYROXINE NA 25 MCG TABLET (FP) PO SCH (06:09)
[2017-11-07] MEDS: MECLIZINE HCL 25 MG TABLET (FP) PO SCH ×3 (06:09→21:20)
[2017-11-07 06:47] LABS: SERUM IRON SATURATION 95 % (15-55); TOTAL IRON BINDING CAPACITY 360 ug/dL (250-450); UIBC 17 ug/dL (118-369)
[2017-11-07 07:08] LABS: BASO % 0.3 % (0-2.0); EOS % 5.1 % (0-4.5); HEMOGLOBIN 9.1 GM/dL (10.7-15.3); LYMPH % 18.8 % (8-40); MCH 24.5 pg (25.7-33.7); MCHC 31.6 g/dl (32.0-36.0); MEAN CELL VOLUME 77.6 fl (80-96); MEAN PLT VOLUME 8.3 fl (7.5-11.1); MONO % 6.7 % (3.8-10.2); NEUT % 69.1 % (42.8-82.8); PLATELET COUNT 308 K/MM3 (134-434); RBC 3.73 M/mm3 (3.60-5.2); RDW 20.5 % (11.6-15.6); WHITE BLOOD COUNT 8.4 K/mm3 (4.0-10.0)
[2017-11-07 07:21] LABS: ALBUMIN 2.3 g/dl (3.4-5.0); ALK PHOS 97 U/L (45-117); ANION GAP 6 (8-16); BILIRUBIN,TOTAL 0.4 mg/dL (0.2-1.0); BLOOD UREA NITROGEN 6 mg/dL (7-18); CALCIUM 7.3 mg/dL (8.5-10.1); CHLORIDE 104 mmol/L (98-107); CO2 32 mmol/L (21-32); CREATININE 0.7 mg/dL (0.55-1.02); GLUCOSE,RANDOM 68 mg/dL (74-106); POTASSIUM 3.6 mmol/L (3.5-5.1); SGOT/AST 9 U/L (15-37); SGPT/ALT 11 U/L (12-78); SODIUM 142 mmol/L (136-145); TOT PROT 5.1 g/dl (6.4-8.2)
[2017-11-07] MEDS ORDERED: PT OWN MED DRAWER 7, Y5N ONE (08:56)
[2017-11-07] MEDS ORDERED: guaiFENesin 200 MG/10 ML 10 ML UNIT-DOSE CUPS PO PRN (09:26)
[2017-11-07] MEDS: DICYCLOMINE HCL 10 MG CAPSULE PO SCH ×2 (09:57→21:21)
[2017-11-07] MEDS: SERTRALINE HCL 50 MG TABLET (FP) PO SCH (09:57)
[2017-11-07] MEDS: CHOLECALCIFEROL (VITAMIN D3) 1,000 UNIT TABLET (FP) PO SCH (09:57)
[2017-11-07] MEDS: CYCLOBENZAPRINE HCL 10 MG TABLET (FP) PO SCH ×2 (09:57→21:22)
[2017-11-07] MEDS: MONTELUKAST NA 10 MG TABLET PO SCH (09:57)
[2017-11-07] MEDS: predniSONE 10 MG TABLET (UD) PO SCH (09:57)
[2017-11-07] MEDS: PANTOPRAZOLE SODIUM 40 MG VIAL IVPUSH SCH (09:58)
[2017-11-07] MEDS: BUDESONIDE/FORMETEROL FUMARATE 160/4.5 mcg INHALER IH SCH ×2 (10:01→21:23)
[2017-11-07] MEDS: POLYETHYLENE GLYCOL 3350 119 GM BTL PO SCH ×2 (10:50→21:22)
[2017-11-07] MEDS: QUINAPRIL HCL 10 MG TABLET (FP) PO SCH (10:51)
[2017-11-07] MEDS: SUMAtriptan SUCCINATE 50 MG TABLET PO PRN (10:51)
[2017-11-07] MEDS: PREGABALIN 25 MG CAPSULE PO SCH ×2 (10:51→21:22)
--- NOTE | 2017-11-07 11:57 | PN ---
Progress Note, Physician History of Present Illness: Patient with coughing, some congestion in chest, still feeling weak. Hgb improved after blood transfusion (6th unit held) - Current Medication List Current Medications: Active Medications Acetaminophen (Tylenol -) 650 mg PO Q4H PRN PRN Reason: PAIN OR FEVER Last Admin: 11/06/17 21:58 Dose: 650 mg Albuterol Sulfate (Ventolin 0.083% Nebulizer Soln -) 1 amp NEB Q4H PRN PRN Reason: SHORT OF BREATH/WHEEZING Alprazolam (Xanax -) 1 mg PO DAILY PRN PRN Reason: ANXIETY Last Admin: 11/06/17 22:47 Dose: 1 mg Budesonide/Formoterol Fumarate (Symbicort 160/4.5mcg -) 2 puff IH BID [facility] Last Admin: 11/07/17 10:01 Dose: 2 puff Cholecalciferol (Vitamin D3 -) 2,000 unit PO DAILY [facility] Last Admin: 11/07/17 09:57 Dose: 2,000 unit Cyclobenzaprine HCl (Flexeril -) 5 mg PO BID [facility] Last Admin: 11/07/17 09:57 Dose: 5 mg Dicyclomine HCl (Bentyl -) 10 mg PO BID [facility] Last Admin: 11/07/17 09:57 Dose: 10 mg Diltiazem HCl (Cardizem Cd -) 240 mg PO HS [facility] Last Admin: 11/06/17 21:42 Dose: 240 mg Guaifenesin (Robitussin -) 10 ml PO Q4H PRN PRN Reason: COUGH Levothyroxine Sodium (Synthroid -) 25 mcg PO DAILY@0700 [facility] Last Admin: 11/07/17 06:09 Dose: 25 mcg Meclizine HCl (Antivert -) 25 mg PO TID [facility] Last Admin: 11/07/17 06:09 Dose: 25 mg Montelukast Sodium (Singulair -) 10 mg PO DAILY [facility] Last Admin: 11/07/17 09:57 Dose: 10 mg Nitroglycerin (Nitrostat -) 0.4 mg SL Q5M PRN PRN Reason: CHEST PAIN Non-Formulary Medication (Mesalamine [Apriso]) 0.375 gm PO BID [facility] Ondansetron HCl (Zofran Injection) 4 mg IVPUSH Q6H PRN PRN Reason: NAUSEA Pantoprazole Sodium (Protonix Iv) 40 mg IVPUSH BID [facility] Last Admin: 11/07/17 09:58 Dose: 40 mg Polyethylene Glycol (Miralax (For Daily Use) -) 17 gm PO BID [facility] Last Admin: 11/07/17 10:50 Dose: 17 gm Prednisone (Deltasone -) 10 mg PO DAILY [facility] Last Admin: 11/07/17 09:57 Dose: 10 mg Pregabalin (Lyrica -) 25 mg PO BID [facility] Last Admin: 11/07/17 10:51 Dose: 25 mg Quinapril HCl (Accupril -) 10 mg PO DAILY [facility] Last Admin: 11/07/17 10:51 Dose: 10 mg Sertraline HCl (Zoloft -) 100 mg PO DAILY [facility] Last Admin: 11/07/17 09:57 Dose: 100 mg Sumatriptan Succinate (Imitrex -) 100 mg PO DAILY PRN PRN Reason: HEADACHE Last Admin: 11/07/17 10:51 Dose: 100 mg - Objective Vital Signs: Vital Signs Temperature 98.2 F 11/07/17 08:01 Pulse Rate 79 11/07/17 08:01 Respiratory Rate 20 11/07/17 08:04 Blood Pressure 110/52 11/07/17 08:01 O2 Sat by Pulse Oximetry (%) 95 11/07/17 08:04 Constitutional: Yes: No Distress, Calm Neck: Yes: Supple, Trachea Midline Cardiovascular: Yes: Regular Rate and Rhythm, S1, S2. No: Murmur Respiratory: Yes: Rhonchi (in upper airways) Gastrointestinal: Yes: Normal Bowel Sounds, Soft, Abdomen, Obese. No: Distention, Tenderness Edema: No Neurological: Yes: Alert, Oriented Labs: CBC, BMP 11/07/17 05:05 11/07/17 05:05 INR, PTT INR 0.96 (0.82-1.09) 11/05/17 13:46 Assessment/Plan Current Active Problems Anemia requiring transfusions (Acute) Diverticulosis (Acute) Stercoral ulcer of large intestine (Acute) Stricture intestinal (Acute) Chronic back pain CAD HTN Gastritis GERD HH IBD Hypothyroid -follow CBC -hematology/ GI following -ferritin low, iron high, but lab taken after received blood transfusion, so likely artificially high currently
--- NOTE | 2017-11-07 12:18 | PN ---
Progress Note (short form) - Note Progress Note: Hematology/Oncology follow-up note S: Patient feeling a little SOB when visited today, she has O2 via NC on 3L. Last Vital Signs Temp Pulse Resp BP Pulse Ox 98.2 F 79 20 110/52 95 11/07/17 08:01 11/07/17 08:01 11/07/17 08:04 11/07/17 08:01 11/07/17 08:04 Physical Exam : AOx3, Pleasant PERRLA, EOMI S1S2 wnl, no crackles, ronchi appreciated No c/c/e nonfocal neuro exam CBC, BMP 11/07/17 05:05 11/07/17 05:05 Current Medications Generic Name Dose Route Start Last Admin Trade Name Freq PRN Reason Stop Dose Admin Acetaminophen 650 mg 11/05/17 16:28 11/06/17 21:58 Tylenol - PO 650 mg Q4H PRN Administration PAIN OR FEVER Albuterol Sulfate 1 amp 11/05/17 16:26 Ventolin 0.083% Nebulizer Soln - NEB Q4H PRN SHORT OF BREATH/WHEEZING Alprazolam 1 mg 11/05/17 16:26 11/06/17 22:47 Xanax - PO 1 mg DAILY PRN Administration ANXIETY Budesonide/Formoterol Fumarate 2 puff 11/05/17 22:00 11/07/17 10:01 Symbicort 160/4.5mcg - IH 2 puff BID TANA Administration Cholecalciferol 2,000 unit 11/06/17 10:00 11/07/17 09:57 Vitamin D3 - PO 2,000 unit DAILY [facility] Administration Cyclobenzaprine HCl 5 mg 11/06/17 10:00 11/07/17 09:57 Flexeril - PO 5 mg BID [facility] Administration Dicyclomine HCl 10 mg 11/05/17 22:00 11/07/17 09:57 Bentyl - PO 10 mg BID [facility] Administration Diltiazem HCl 240 mg 11/05/17 22:00 11/06/17 21:42 Cardizem Cd - PO 240 mg HS [facility] Administration Guaifenesin 10 ml 11/07/17 09:26 Robitussin - PO Q4H PRN COUGH Levothyroxine Sodium 25 mcg 11/06/17 07:00 11/07/17 06:09 Synthroid - PO 25 mcg DAILY@0700 [facility] Administration Meclizine HCl 25 mg 11/05/17 22:00 11/07/17 06:09 Antivert - PO 25 mg TID [facility] Administration Montelukast Sodium 10 mg 11/06/17 10:00 11/07/17 09:57 Singulair - PO 10 mg DAILY [facility] Administration Nitroglycerin 0.4 mg 11/05/17 16:30 Nitrostat - SL Q5M PRN CHEST PAIN Non-Formulary Medication 0.375 gm 11/05/17 22:00 Mesalamine [Apriso] PO BID [facility] Ondansetron HCl 4 mg 11/05/17 16:28 Zofran Injection IVPUSH Q6H PRN NAUSEA Pantoprazole Sodium 40 mg 11/05/17 22:00 11/07/17 09:58 Protonix Iv IVPUSH 40 mg BID [facility] Administration Polyethylene Glycol 17 gm 11/05/17 22:00 11/07/17 10:50 Miralax (For Daily Use) - PO 17 gm BID [facility] Administration Prednisone 10 mg 11/06/17 10:00 11/07/17 09:57 Deltasone - PO 10 mg DAILY [facility] Administration Pregabalin 25 mg 11/05/17 22:00 11/07/17 10:51 Lyrica - PO 25 mg BID [facility] Administration Quinapril HCl 10 mg 11/06/17 10:00 11/07/17 10:51 Accupril - PO 10 mg DAILY [facility] Administration Sertraline HCl 100 mg 11/06/17 10:00 11/07/17 09:57 Zoloft - PO 100 mg DAILY [facility] Administration Sumatriptan Succinate 100 mg 11/06/17 11:51 11/07/17 10:51 Imitrex - PO 100 mg DAILY PRN Administration HEADACHE 77 y/o female with Hx of chronic GI bleeding and noted to have GI junction ulcerations in the past now admitted with severe anemia requiring transfusions and concern for repeat GI bleed - pt transfused now to goal of 8, can stop pRBC transfusions -can administer 20-40 mg IV lasix X 1 as possible SOB is from fluid overload due to multiple back to back transfusions -retic count - 3.05 shows an increase from baseline and the bone marrow appears to be trying to compensate for the blood loss. This in addition to normal WBC and plt counts goes against patient having a bone marrow failure syndrome. -had a low MCV of 69 at presentation, please check iron studies- ferritin, serum iron, transferrin and TIBC -agree with repeat GI work-up with EGD and colonoscopy, awaiting further GI recs -hold off NSAIDS, Consider using just IV prn pain meds -CT scan does not show any indira GI bleed or RP bleed
[2017-11-07] MEDS ORDERED: IRON SUCROSE INJECTION 100 MG in SODIUM CHLORIDE 95 ML IVPB ONE (13:28)
--- NOTE | 2017-11-07 13:38 | PN ---
GI Progress Note Subjective: GI Note: Hb up to 9. No overt bleeding. Schedule does not allow for elective endoscopy early in the week so will give Venofer infusion ( ferritin 6) in anticipation of discharge in AM. Patient can followup in our office to arrange repeat endoscopies. She actually last had EGD and colonoscopy on 03/16/16. Please see the reports on the front of her chart. - Objective Vital Signs: Vital Signs Temperature 98.2 F 11/07/17 08:01 Pulse Rate 79 11/07/17 08:01 Respiratory Rate 20 11/07/17 08:04 Blood Pressure 110/52 11/07/17 08:01 O2 Sat by Pulse Oximetry (%) 95 11/07/17 08:04 Constitutional: No Distress ...Auscultate: Yes: Normoactive Bowel Sounds ...Palpate: Yes: Soft, Other (nontender) Labs: CBC, BMP 11/07/17 05:05 11/07/17 05:05 INR, PTT INR 0.96 (0.82-1.09) 11/05/17 13:46 Problem List - Problems (1) Diverticulosis Code(s): K57.90 - DVRTCLOS OF INTEST, PART UNSP, W/O PERF OR ABSCESS W/O BLEED (2) Stercoral ulcer of large intestine Code(s): K63.3 - ULCER OF INTESTINE (3) Stricture intestinal Code(s): K56.699 - OTHER INTESTNL OBST UNSP TO PARTIAL VERSUS COMPLETE OBST (4) GI bleed Assessment/Plan: No active bleeding observed. Suspect indolent bleeding from stercoral ulceration at her anastomotic stricture. Parenteral iron ordered. If stable can D/C in AM Code(s): K92.2 - GASTROINTESTINAL HEMORRHAGE, UNSPECIFIED Qualifiers: GI bleed type/associated pathology: melena Qualified Code(s): K92.1 - Melena
[2017-11-07] MEDS: PANTOPRAZOLE 40 MG TABLET (FP) PO SCH (21:22)
[2017-11-08] MEDS: ACETAMINOPHEN 325 MG TABLET (FP) PO PRN ×2 (00:31→17:59)
[2017-11-08] MEDS: LEVOTHYROXINE NA 25 MCG TABLET (FP) PO SCH (06:27)
[2017-11-08] MEDS: MECLIZINE HCL 25 MG TABLET (FP) PO SCH ×3 (06:27→22:05)
[2017-11-08 06:52] LABS: BASO % 0.3 % (0-2.0); EOS % 2.9 % (0-4.5); HEMATOCRIT 30.2 % (32.4-45.2); HEMOGLOBIN 9.4 GM/dL (10.7-15.3); MCH 24.8 pg (25.7-33.7); MCHC 31.2 g/dl (32.0-36.0); MEAN CELL VOLUME 79.6 fl (80-96); MEAN PLT VOLUME 8.5 fl (7.5-11.1); MONO % 6.9 % (3.8-10.2); NEUT % 71.9 % (42.8-82.8); PLATELET COUNT 316 K/MM3 (134-434); RBC 3.79 M/mm3 (3.60-5.2); RDW 21.3 % (11.6-15.6); WHITE BLOOD COUNT 10.1 K/mm3 (4.0-10.0)
[2017-11-08 07:24] LABS: ALBUMIN 2.3 g/dl (3.4-5.0); ANION GAP 9 (8-16); BILIRUBIN,TOTAL 0.3 mg/dL (0.2-1.0); BLOOD UREA NITROGEN 7 mg/dL (7-18); CHLORIDE 105 mmol/L (98-107); CO2 30 mmol/L (21-32); CREATININE 0.8 mg/dL (0.55-1.02); GLUCOSE,RANDOM 97 mg/dL (74-106); POTASSIUM 3.4 mmol/L (3.5-5.1); SGOT/AST 6 U/L (15-37); SGPT/ALT 11 U/L (12-78); SODIUM 144 mmol/L (136-145); TOT PROT 5.4 g/dl (6.4-8.2)
[2017-11-08 07:25] LABS: ALK PHOS 118 U/L (45-117)
[2017-11-08] MEDS: PANTOPRAZOLE 40 MG TABLET (FP) PO SCH ×2 (09:36→22:04)
[2017-11-08] MEDS: PREGABALIN 25 MG CAPSULE PO SCH ×2 (09:36→22:05)
[2017-11-08] MEDS: SERTRALINE HCL 50 MG TABLET (FP) PO SCH (09:36)
[2017-11-08] MEDS: CHOLECALCIFEROL (VITAMIN D3) 1,000 UNIT TABLET (FP) PO SCH (09:36)
[2017-11-08] MEDS: DICYCLOMINE HCL 10 MG CAPSULE PO SCH ×2 (09:36→22:04)
[2017-11-08] MEDS: MONTELUKAST NA 10 MG TABLET PO SCH (09:36)
[2017-11-08] MEDS: predniSONE 10 MG TABLET (UD) PO SCH (09:36)
[2017-11-08] MEDS: CYCLOBENZAPRINE HCL 10 MG TABLET (FP) PO SCH ×2 (09:37→22:04)
[2017-11-08] MEDS: QUINAPRIL HCL 10 MG TABLET (FP) PO SCH (09:37)
[2017-11-08] MEDS: SUMAtriptan SUCCINATE 50 MG TABLET PO PRN (09:44)
[2017-11-08] MEDS: BUDESONIDE/FORMETEROL FUMARATE 160/4.5 mcg INHALER IH SCH ×2 (09:44→22:07)
[2017-11-08] MEDS: POLYETHYLENE GLYCOL 3350 119 GM BTL PO SCH ×2 (09:48→22:07)
--- NOTE | 2017-11-08 09:52 | PN ---
Progress Note (short form) - Note Progress Note: Patient admitted with Hb 3.9GM has now been corrected to a level of 9.4GM after 4 units of packed cells. Admission iron was elevated but Feritin was low. Stool Guiac reported as negative but GI MD noted + Stool Guiac. Patient feels tired. SOB noted Slight cough Some difficulty with AM swallowing Increased nocturia On Exam: Vital Signs Temp 97.9 F 11/08/17 06:00 Pulse 93 H 11/08/17 06:00 Resp 20 11/08/17 06:00 BP 118/54 11/08/17 06:00 Pulse Ox 95 11/07/17 21:00 Intake & Output 11/07/17 11/07/17 11/08/17 11:59 23:59 11:59 Intake Total 200 290 270 Balance 200 290 270 Intake: IV 40 20 SALINE LOCK 10 10 SL 30 10 Oral 200 250 250 Other: Voiding Method Bedpan Bedpan Bedpan # Unmeasured Voids Void 1 2 2 Bowel Movement No No No Alert less pale Chest: Bilateral rhonchi and a few wheezes Abd: Mild epigastric tenderness Ext: No edema Abnormal Lab Results 11/08/17 11/08/17 06:35 06:35 WBC 10.1 H Hgb 9.4 L Hct 30.2 L MCV 79.6 L MCH 24.8 L MCHC 31.2 L RDW 21.3 H Potassium 3.4 L Calcium 8.0 L AST 6 L ALT 11 L Alkaline Phosphatase 118 H Total Protein 5.4 L Albumin 2.3 L IMP: Severe anemia ? source SOB with Hx asthma R/O some fluid overload after 4 u pc with no lasix Acute UTI Chronic Pain DJD Hx: Hemicolectomy Chronic anxiety Hypokalemia Plan: Trial IV Lasix X1 Potassium replacement Antibiotics for Acute UTI Continue low dose steroids GI MD unable to do endoscopy on this admission ? Home Wednesday.
[2017-11-08] MEDS ORDERED: FUROSEMIDE 40 MG/4 ML INJECTABLE VIAL IVPUSH ONE (10:00)
[2017-11-08] MEDS: POTASSIUM CHLORIDE TABS 10 MEQ TABLET.ER (FP) PO SCH ×2 (11:06→22:05)
[2017-11-08] MEDS: ALPRAZolam 2 MG TABLET PO PRN (22:06)
[2017-11-09] MEDS: SUMAtriptan SUCCINATE 50 MG TABLET PO PRN (00:49)
[2017-11-09] MEDS: LEVOTHYROXINE NA 25 MCG TABLET (FP) PO SCH (06:10)
[2017-11-09] MEDS: MECLIZINE HCL 25 MG TABLET (FP) PO SCH ×2 (06:10→15:58)
[2017-11-09 06:56] LABS: ANION GAP 8 (8-16); BLOOD UREA NITROGEN 12 mg/dL (7-18); CALCIUM 8.1 mg/dL (8.5-10.1); CHLORIDE 100 mmol/L (98-107); CO2 32 mmol/L (21-32); CREATININE 0.7 mg/dL (0.55-1.02); GLUCOSE,RANDOM 72 mg/dL (74-106); MAGNESIUM 1.6 mg/dL (1.8-2.4); POTASSIUM 3.8 mmol/L (3.5-5.1); SODIUM 140 mmol/L (136-145)
[2017-11-09 07:47] LABS: HEMATOCRIT 33.4 % (32.4-45.2); HEMOGLOBIN 10.2 GM/dL (10.7-15.3); MCH 24.7 pg (25.7-33.7); MCHC 30.5 g/dl (32.0-36.0); MEAN CELL VOLUME 81.1 fl (80-96); MEAN PLT VOLUME 8.7 fl (7.5-11.1); PLATELET COUNT 325 K/MM3 (134-434); RBC 4.12 M/mm3 (3.60-5.2); RDW 22.5 % (11.6-15.6); WHITE BLOOD COUNT 12.5 K/mm3 (4.0-10.0)
[2017-11-09] MEDS ORDERED: PT OWN MED DRAWER 7, Y5N ONE ×2 (10:15→11:12)
[2017-11-09] MEDS: QUINAPRIL HCL 10 MG TABLET (FP) PO SCH (10:18)
[2017-11-09] MEDS: CYCLOBENZAPRINE HCL 10 MG TABLET (FP) PO SCH (10:19)
[2017-11-09] MEDS: predniSONE 10 MG TABLET (UD) PO SCH (10:21)
[2017-11-09] MEDS: PREGABALIN 25 MG CAPSULE PO SCH (10:22)
[2017-11-09] MEDS: PANTOPRAZOLE 40 MG TABLET (FP) PO SCH (10:22)
[2017-11-09] MEDS: POTASSIUM CHLORIDE TABS 10 MEQ TABLET.ER (FP) PO SCH (10:22)
[2017-11-09] MEDS: MONTELUKAST NA 10 MG TABLET PO SCH (10:22)
[2017-11-09] MEDS: BUDESONIDE/FORMETEROL FUMARATE 160/4.5 mcg INHALER IH SCH (10:23)
[2017-11-09] MEDS: SERTRALINE HCL 50 MG TABLET (FP) PO SCH (10:23)
[2017-11-09] MEDS: CHOLECALCIFEROL (VITAMIN D3) 1,000 UNIT TABLET (FP) PO SCH (10:23)
[2017-11-09] MEDS: DICYCLOMINE HCL 10 MG CAPSULE PO SCH (10:24)
[2017-11-09] MEDS: POLYETHYLENE GLYCOL 3350 119 GM BTL PO SCH (10:25)
--- NOTE | 2017-11-09 10:56 | PN ---
Progress Note (short form) - Note Progress Note: Patient seen and examined. Note to follow.
[2017-11-09] MEDS ORDERED: MAGNESIUM SULF 50% (8.12 MEQ/2 ML-1 GM VIAL) IVPB ONE (11:00)
[2017-11-09] MEDS ORDERED: SUMAtriptan SUCCINATE 50 MG TABLET PO ONE (11:00)
--- NOTE | 2017-11-09 14:32 | DS ---
Physical Examination Vital Signs: Vital Signs Temperature 98.1 F 11/09/17 10:00 Pulse Rate 85 11/09/17 10:00 Respiratory Rate 18 11/09/17 10:00 Blood Pressure 110/54 11/09/17 10:00 O2 Sat by Pulse Oximetry (%) 95 11/09/17 06:00 Constitutional: Yes: Calm, Pallor HENT: Yes: Atraumatic Cardiovascular: Yes: Regular Rate and Rhythm Respiratory: Yes: Rhonchi, Wheezes (rare wheeze and a few rhonchi at the bases.) Gastrointestinal: Yes: Soft, Hypoactive Bowel Sounds, Tenderness, Epigastrium ( mild) Edema: No Neurological: Yes: Alert, Oriented Labs: CBC, BMP 11/09/17 05:05 11/09/17 05:05 Discharge Summary Reason For Visit: TRASFUSION DEPENDENT ANEMIA Current Active Problems Anemia requiring transfusions (Acute) Diverticulosis (Acute) Stercoral ulcer of large intestine (Acute) Stricture intestinal (Acute) Chronic anxiety Hx hemicolectomy Chronic and acute pain Acute migraine Procedures: Principal: 4 blood transfusions. Daily cbc's Other Procedures: IV Rx; consults with GI MD and Heme MD. Anemia workup Hospital Course: Fairly rapid improvement with Hb over 10GM on discharge Will followup with GI MD after discharge re: timing of endoscopy Condition: Stable - Instructions Diet, Activity, Other Instructions: No added salt No aspirin or motrin for pain until GI workup. Call Dr. Stewart's office re: scheduling upper and lower endoscopy See Dr. Rodgers within 2 weeks of discharge if able. Referrals: Jong Rodgers MD [Primary Care Provider] - Savannah Stewart MD [Staff Physician] - Disposition: HOME - Home Medications Comprehensive Discharge Medication List: Ambulatory Orders Cholecalciferol (Vitamin D3) [Vitamin D3] 2,000 unit PO DAILY 11/02/16 Diltiazem HCl [Diltiazem 24Hr Cd] 240 mg PO HS 11/02/16 Levothyroxine [Synthroid -] 25 mcg PO DAILY 11/02/16 Montelukast Na [Singulair -] 10 mg PO DAILY 11/02/16 Nitroglycerin [Nitrostat] 0.4 mg SL PRN 11/02/16 Sertraline HCl [Zoloft -] 100 mg PO DAILY 11/02/16 Sumatriptan Succinate [Imitrex -] 100 mg PO PRN 11/02/16 Alprazolam [Xanax] 1 mg PO DAILY PRN #0 tablet MDD 1 11/10/16 Polyethylene Glycol 3350 [Miralax 119 gm Btl -] 17 gm PO BID bottle 11/10/16 Potassium Chloride [K-Dur -] 10 meq PO BID tablet.er 11/10/16 Acetaminophen [Tylenol .Regular Strength -] 650 mg PO Q4H PRN #0 tablet Albuterol 0.083% Nebulizer Iris [Ventolin 0.083% Nebulizer Soln -] 1 amp NEB Q4H PRN #0 amp 12/07/16 Budesonide/Formeterol Fumarate [SYMBICORT 160/4.5mcg -] 2 puff IH BID #1 inhaler 12/07/16 Quinapril HCl [Accupril -] 10 mg PO DAILY #30 tablet 12/07/16 Cyclobenzaprine HCl 5 mg PO BID 11/05/17 Dicyclomine HCl [Bentyl] 10 mg PO BID 11/05/17 Meclizine HCl [Antivert -] 25 mg PO TID 11/05/17 Mesalamine [Apriso] 0.375 gm PO BID 11/05/17 Ondansetron HCl [Zofran] 8 mg PO BID PRN 11/05/17 Prednisone 10 mg PO DAILY 11/05/17 Pregabalin [Lyrica] 25 mg PO BID 11/05/17 Acetaminophen [Tylenol .Regular Strength -] 650 mg PO Q4H PRN tablet 11/09/17 Guaifenesin [Robitussin -] 10 ml PO Q4H PRN cup 11/09/17 Levofloxacin [Levaquin -] 500 mg PO DAILY@0600 7 Days #7 tablet 11/09/17 Pantoprazole Sodium [Protonix -] 40 mg PO BID 30 Days #60 tablet.ec 11/09/17
[2017-11-09 15:57] VITALS: BP 110/56; PULSE 95; TEMP 98.2
== END 2017-11-09 16:41 | disposition home or self-care (01) | DRG 394 ==
LOC: JER 13:20 → JERBED 15:59 → J4W 23:26
PROVIDERS: ADMIT Internal Medicine; ATTEND Internal Medicine
PROC: 30233N1 Transfusion of Nonautologous Red Blood Cells into Peripheral Vein, Percutaneous Approach (ICD-10-PCS; principal; 2017-11-05)
DX: K63.3 Ulcer of intestine (principal); J45.901 Unspecified asthma with (acute) exacerbation; N39.0 Urinary tract infection, site not specified; D50.9 Iron deficiency anemia, unspecified; I10 Essential (primary) hypertension; E83.42 Hypomagnesemia; E03.9 Hypothyroidism, unspecified; R55 Syncope and collapse; R42 Dizziness and giddiness; R53.1 Weakness; K57.90 Diverticulosis of intestine, part unspecified, without perforation or abscess without bleeding; G43.909 Migraine, unspecified, not intractable, without status migrainosus; I25.10 Atherosclerotic heart disease of native coronary artery without angina pectoris; E87.6 Hypokalemia; F41.9 Anxiety disorder, unspecified; G89.29 Other chronic pain; M19.90 Unspecified osteoarthritis, unspecified site; E87.70 Fluid overload, unspecified; K21.9 Gastro-esophageal reflux disease without esophagitis
CPT/HCPCS: 36415; 36430; 71045-TC; 74177-TC; 80048; 80053; 81003; 82272; 82728; 83540; 83550; 83605; 83690; 83735; 83880; 84100; 84484; 85025; 85027; 85044; 85610; 85730; 86850; 86900; 86901; 86922; 87086; 87186; 93005; 93010; 97116-GP; 97161-GP; 99285-25; J1756; P9038; P9058

== ENCOUNTER 2017-12-03 07:54 | Day surgery (SDC) | payer OTHER ==
[2017-12-02 10:54] VITALS: BMI 31.5
[2017-12-03] MEDS ORDERED: PROPOFOL 20 ML ONE ×2 (08:53)
[2017-12-03] MEDS ORDERED: LIDOCAINE HCL/PF 2% SDV 5ML VIAL ONE (08:54)
[2017-12-03 09:45] VITALS: TEMP 98.4
[2017-12-03] MEDS ORDERED: ETOMIDATE 20 MG/10 ML AMPUL IVPUSH ONE (09:56)
[2017-12-03 11:58] VITALS: BP 108/61; PULSE 108
--- NOTE | 2017-12-06 17:16 | PATH ---
Surgical Pathology Report Patient Name: GIOVANI MEDINA [facility] Rec. #: [id number] /Age/Gender: 1940 (Age: 77) / F Account: [id number] Location: [facility]-ENDOSCOPY Taken: 12/03/2017 Received: 12/03/2017 Reported: 12/06/2017 Physicians: Savannah Stewart M.D. Specimen(s) Received A: BX DUODENUM B: BX ANTRUM C: BX FUNDUS D: BX ANASTOMOSIS STRICTURE (COLON) E: BX TERMINAL ILEUM F: BX ANASTOMOSIS ULCER (COLON) G: BX RECTAL POLYP Clinical History Preoperative diagnosis: Anemia, GERD Postoperative diagnosis: Gastritis, anastomosis stricture ulcer, ava-anastomosis ulcer, rectal polyp Final Diagnosis A. DUODENUM, SECOND PORTION/BULB, BIOPSY: DUODENAL MUCOSA WITHOUT SIGNIFICANT PATHOLOGIC FINDINGS. B. STOMACH, ANTRUM, BIOPSY: GASTRIC ANTRAL MUCOSA WITH MILD CHRONIC GASTRITIS. IMMUNOHISTOCHEMICAL STAIN FOR H. PYLORI IS NEGATIVE. C. STOMACH, FUNDUS, BIOPSY: GASTRIC OXYNTIC MUCOSA WITH MILD CHRONIC GASTRITIS. IMMUNOHISTOCHEMICAL STAIN FOR H. PYLORI IS NEGATIVE. D. COLON, ANASTOMOSIS STRICTURE, BIOPSY: GRANULATION TISSUE WITH ULCERATION CONSISTENT WITH ULCER BASE. SMALL BOWEL AND COLONIC MUCOSA WITHOUT SIGNIFICANT PATHOLOGIC FINDINGS. E. TERMINAL ILEUM, BIOPSY: ILEAL MUCOSA WITH MODERATE ACUTE ILEITIS. NO GRANULOMA, ARCHITECTURAL DISTORTION, OR DYSPLASIA IDENTIFIED. F. COLON, ANASTOMOSIS ULCER, BIOPSY: GRANULATION TISSUE WITH ULCERATION CONSISTENT WITH ULCER BASE. COLONIC MUCOSA WITH FOCAL SUPERFICIAL HYPERPLASTIC FEATURES. G. RECTUM, POLYP, BIOPSY: POLYPOID COLONIC MUCOSA WITH PROMINENT LYMPHOID AGGREGATE AND SUPERFICIAL HYPERPLASTIC FEATURES. Electronically Signed Sol Estrada M.D. Gross Description A. Received in formalin, labeled "biopsy second portion of duodenum/bulb" are 7 stanley, irregular portions of soft tissue ranging from 0.2-0.4 cm. in greatest dimension. The specimens are submitted in toto in one cassette. B. Received in formalin, labeled "biopsy antrum" is a stanley, irregular portion of soft tissue measuring 0.5 cm. in greatest dimension. The specimen is submitted in toto in one cassette. C. Received in formalin, labeled "biopsy fundus" are 2 stanley, irregular portions of soft tissue measuring 0.2 and 0.5 cm. in greatest dimension. The specimens are submitted in toto in one cassette. D. Received in formalin, labeled "biopsy anastomosis stricture" are 2 stanley, irregular portions of soft tissue measuring 0.3 and 0.4 cm. in greatest dimension. The specimens are submitted in toto in one cassette. E. Received in formalin, labeled "biopsy terminal ileum" are 2 stanley, irregular portions of soft tissue averaging 0.4 cm. in greatest dimension. The specimens are submitted in toto in one cassette. F. Received in formalin, labeled "biopsy anastomosis ulcer " are 3 stanley, irregular portions of soft tissue ranging from 0.2-0.4 cm. in greatest dimension. The specimens are submitted in toto in one cassette. G. Received in formalin, labeled "biopsy rectal polyp" are 2 stanley, irregular portions of soft tissue measuring 0.3 and 0.4 cm. in greatest dimension. The specimens are submitted in toto in one cassette. 12/03/2017 [facility]12/03/2017
== END 2017-12-03 12:00 | disposition home or self-care (01) ==
LOC: JASU-ENDO 07:54
PROVIDERS: ATTEND Internal Medicine Gastroenterology
PROC: 0DB68ZX Excision of Stomach, Via Natural or Artificial Opening Endoscopic, Diagnostic (ICD-10-PCS; 2017-12-03)
PROC: 0DBP8ZX Excision of Rectum, Via Natural or Artificial Opening Endoscopic, Diagnostic (ICD-10-PCS; 2017-12-03)
PROC: 0DBL8ZX Excision of Transverse Colon, Via Natural or Artificial Opening Endoscopic, Diagnostic (ICD-10-PCS; 2017-12-03)
PROC: 0D7L8ZZ Dilation of Transverse Colon, Via Natural or Artificial Opening Endoscopic (ICD-10-PCS; 2017-12-03)
PROC: 0DB98ZX Excision of Duodenum, Via Natural or Artificial Opening Endoscopic, Diagnostic (ICD-10-PCS; principal; 2017-12-03 09:00)
DX: D50.0 Iron deficiency anemia secondary to blood loss (chronic) (principal); K29.50 Unspecified chronic gastritis without bleeding; K62.1 Rectal polyp; Z98.0 Intestinal bypass and anastomosis status; K52.9 Noninfective gastroenteritis and colitis, unspecified; K63.3 Ulcer of intestine; I10 Essential (primary) hypertension; E03.9 Hypothyroidism, unspecified; I25.10 Atherosclerotic heart disease of native coronary artery without angina pectoris; I34.1 Nonrheumatic mitral (valve) prolapse
CPT/HCPCS: 88305-TC; 88342-TC

== ENCOUNTER 2017-12-14 13:49 | Day surgery (SDC) | payer OTHER ==
[2017-12-14] MEDS ORDERED: ACETAMINOPHEN 325 MG TABLET (FP) PO PRN (14:55)
[2017-12-14] MEDS ORDERED: FUROSEMIDE 40 MG/4 ML INJECTABLE VIAL IVPUSH ONE ×2 (14:55)
[2017-12-14] MEDS ORDERED: DOCUSATE SODIUM 100 MG CAPSULE (FP) PO PRN (14:55)
--- NOTE | 2017-12-14 15:03 | PN ---
Progress Note (short form) - Note Progress Note: Patient had recent admission for severe anemia with HB 3.9 GM. Was given 4 u packed cells. Called yesterday saying she was weak again and Hb fell to 7.7GM and [facility] 2 u packed cells. Cause is still unclear and she was hesitant to do have a camera endoscopy and just recently had upper and lower endoscopy. Past history multiple abdominal surgeries, hypertension, migraine, diabetes mellitus, risk, hypothyroidism, vitamin B12 deficiency, gastritis, shoulder surgery, pneumonia, asthmatic bronchitis and polyneuropathy. She also has chronic pain and anxiety. On exam: Vital Signs Temp 98.4 F 12/14/17 14:13 Pulse 100 H 12/14/17 14:13 Resp 20 12/14/17 14:13 BP 119/54 12/14/17 14:13 Pulse Ox Intake & Output 12/13/17 12/14/17 12/14/17 23:59 11:59 23:59 Weight 170 lb Other: Weight Measurement Method Estimated by Patient alert Pale. No significant abdominal tenderness. Pain pump right lower quadrant Extremities no pedal edema. Respirations regular. Abnormal Lab Results 12/14/17 14:45 Crossmatch See Detail hemoglobin 7.7 gm on 12/13/2017 Impression: Acute and chronic blood loss anemia. Iron deficiency anemia. Chronic pain and anxiety. Multiple abdominal procedures. Diverticulosis. Hemicolectomy. Hypertension. Migraine headaches. Risk of diabetes Hypothyroidism B12 deficiency. Gastritis or 9, right shoulder surgery. Humerus fracture right arm. History of pneumonia asthmatic bronchitis plan: 2 units packed cells. Lasix 40 mg IV in between each unit. Patient will not have to stay in the hospital after the second unit of packed cells. CBC will be done before discharge
[2017-12-14] MEDS ORDERED: SUMAtriptan SUCCINATE 50 MG TABLET PO ONE (15:15)
[2017-12-14] MEDS: QUINAPRIL HCL 10 MG TABLET (FP) PO SCH (15:29)
[2017-12-14] MEDS: SERTRALINE HCL 50 MG TABLET (FP) PO SCH ×2 (15:35→15:36)
[2017-12-14] MEDS: CYCLOBENZAPRINE HCL 10 MG TABLET (FP) PO SCH ×2 (15:35→21:26)
[2017-12-14] MEDS: RANITIDINE HCL 150 MG TABLET (FP) PO SCH (15:35)
[2017-12-14 16:19] LABS: BASO % 0.2 % (0-2.0); EOS % 3.3 % (0-4.5); HEMATOCRIT 21.4 % (32.4-45.2); MCH 24.4 pg (25.7-33.7); MCHC 30.9 g/dl (32.0-36.0); MEAN CELL VOLUME 79.2 fl (80-96); MEAN PLT VOLUME 8.6 fl (7.5-11.1); MONO % 6.7 % (3.8-10.2); NEUT % 71.8 % (42.8-82.8); PLATELET COUNT 342 K/MM3 (134-434); RBC 2.71 M/mm3 (3.60-5.2); RDW 21.2 % (11.6-15.6); WHITE BLOOD COUNT 6.4 K/mm3 (4.0-10.0)
[2017-12-14 16:47] LABS: HEMOGLOBIN 6.6 GM/dL (10.7-15.3)
[2017-12-14 16:50] LABS: ANION GAP 9 (8-16); BLOOD UREA NITROGEN 13 mg/dL (7-18); CALCIUM 8.2 mg/dL (8.5-10.1); CHLORIDE 104 mmol/L (98-107); CO2 28 mmol/L (21-32); CREATININE 0.8 mg/dL (0.55-1.02); GLUCOSE,RANDOM 102 mg/dL (74-106); POTASSIUM 3.9 mmol/L (3.5-5.1); SODIUM 141 mmol/L (136-145)
--- NOTE | 2017-12-14 19:41 | CON.GI ---
Consult Consult Specialty:: Gastroenterology Referred by:: Dr Rodgers Reason for Consultation:: Progressive anemia - History of Present Illness Chief Complaint: Weakness History of Present Illness: 77F returns with a Hb of 6.6. She presented on 11/05 with Hb 3.9 and discharged with Hb 10 on 11/10/17. She denies any bleeding or usage of NSAIDs since her discharge. She has not been taking iron and an infusion was planned. She had an EGD and a colonoscopy with md on 12/03/17 when a mild erosive gastritis was seen. Colonoscopy revealed a tight anastomotic stricture which I dilated open with the scope as well as a perianastomotic ulcer felt to be related to NSAIDs. She cannot have a capsule endoscopy as it would likely get stuck at the anastomotic stricture. She has been moving her bowels regularly since the dilatation with the help of Miralax. She required 7 transfusions in 2017. - History Source History Provided By: Patient, Medical Record Limitations to Obtaining History: No Limitations - Past Medical History HR ADVISOR: Yes: Migraine Cardio/Vascular: Yes: CAD, HTN, Other (MVP) Pulmonary: Yes: Asthma, Bronchitis Gastrointestinal: Yes: Constipation, Diverticulosis, Gastritis, GERD, Hiatal Hernia, Irritable Bowel Disease, Peptic Ulcer Disease, Other (recurrent SBO, anastomotic stricture dilated 12/03/17, perianastomotic ulcer) Hepatobiliary: Yes: Other (papillary stenosis @ ERCP with Dr Amaro 01/15) Renal/: Yes: UTI Heme/Onc: Yes: Anemia Psych: Yes: Anxiety Musculoskeletal: Yes: Chronic low back pain, Osteoarthritis Endocrine: Yes: Hypothyroidism Additional Medical History: early glaucoma. cervical and lumbar radiculopathy. avascular necrosis of femoral head. 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 History of Recent Travel: No Home Medications - Allergies Allergies/Adverse Reactions: Allergies Allergy/AdvReac Type Severity Reaction Status Date / Time metronidazole [From Flagyl] Allergy Intermediate Swelling Verified 11/05/17 13: 25 lactose AdvReac Verified 11/05/17 13:25 fresh fruit Allergy Vomiting Uncoded 11/05/17 13:25 fresh vegetables Allergy Uncoded 11/05/17 13:25 - Home Medications Home Medications: Ambulatory Orders Cholecalciferol (Vitamin D3) [Vitamin D3] 2,000 unit PO DAILY 11/02/16 Diltiazem HCl [Diltiazem 24Hr Cd] 240 mg PO HS 11/02/16 Levothyroxine [Synthroid -] 25 mcg PO DAILY 11/02/16 Montelukast Na [Singulair -] 10 mg PO DAILY 11/02/16 Nitroglycerin [Nitrostat] 0.4 mg SL PRN PRN 11/02/16 Sertraline HCl [Zoloft -] 100 mg PO DAILY 11/02/16 Sumatriptan Succinate [Imitrex -] 100 mg PO PRN 11/02/16 Alprazolam [Xanax] 1 mg PO DAILY PRN #0 tablet MDD 1 11/10/16 Polyethylene Glycol 3350 [Miralax 119 gm Btl -] 17 gm PO BID bottle 11/10/16 Acetaminophen [Tylenol .Regular Strength -] 650 mg PO Q4H PRN #0 tablet Albuterol 0.083% Nebulizer Iris [Ventolin 0.083% Nebulizer Soln -] 1 amp NEB Q4H PRN #0 amp 12/07/16 Budesonide/Formeterol Fumarate [SYMBICORT 160/4.5mcg -] 2 puff IH BID #1 inhaler 12/07/16 Quinapril HCl [Accupril -] 10 mg PO DAILY #30 tablet 12/07/16 Dicyclomine HCl [Bentyl] 10 mg PO BID PRN 11/05/17 Meclizine HCl [Antivert -] 25 mg PO TID PRN 11/05/17 Ondansetron HCl [Zofran] 8 mg PO BID PRN 11/05/17 Pregabalin [Lyrica] 25 mg PO BID 11/05/17 levoFLOXacin [Levaquin -] 500 mg PO DAILY@0600 7 Days #7 tablet 11/09/17 Potassium Chloride [K-Dur -] 10 meq PO DAILY 12/02/17 Ranitidine HCl 150 mg PO HS 12/02/17 Vitamin E 1,000 unit PO DAILY 12/02/17 Mag Carb/Aluminum Hydrox/Algin [Gaviscon Liquid] 30 ml PO Q6H PRN #355 oz Morphine Sulfate Drip- [Morphine Sulfate Drip -] 10 mg IV ASDIR PRN 12/03/17 Pantoprazole Sodium [Protonix -] 40 mg PO BID 30 Days #60 tablet.ec 12/03/17 Family Disease History - Family Disease History Family Disease History: CA: Father (lung), Mother (breast) Review of Systems - Review of Systems Constitutional: reports: Lethargy, Weakness Respiratory: reports: Exercise Intolerance Physical Exam-GI Vital Signs: Vital Signs Temperature 98.6 F 12/14/17 18:49 Pulse Rate 98 H 12/14/17 18:49 Respiratory Rate 20 12/14/17 18:49 Blood Pressure 106/74 12/14/17 18:49 O2 Sat by Pulse Oximetry (%) CBC,CMP WBC 6.4 K/mm3 (4.0-10.0) 12/14/17 14:45 RBC 2.71 M/mm3 (3.60-5.2) L 12/14/17 14:45 Hgb 6.6 GM/dL (10.7-15.3) L* D 12/14/17 14:45 Hct 21.4 % (32.4-45.2) L 12/14/17 14:45 MCV 79.2 fl (80-96) L 12/14/17 14:45 MCH 24.4 pg (25.7-33.7) L 12/14/17 14:45 MCHC 30.9 g/dl (32.0-36.0) L 12/14/17 14:45 RDW 21.2 % (11.6-15.6) H 12/14/17 14:45 Plt Count 342 K/MM3 (134-434) 12/14/17 14:45 MPV 8.6 fl (7.5-11.1) 12/14/17 14:45 Neutrophils % 71.8 % (42.8-82.8) 12/14/17 14:45 Lymphocytes % 18.0 % (8-40) 12/14/17 14:45 Monocytes % 6.7 % (3.8-10.2) 12/14/17 14:45 Eosinophils % 3.3 % (0-4.5) 12/14/17 14:45 Basophils % 0.2 % (0-2.0) 12/14/17 14:45 Sodium 141 mmol/L (136-145) 12/14/17 14:45 Potassium 3.9 mmol/L (3.5-5.1) 12/14/17 14:45 Chloride 104 mmol/L (98-107) 12/14/17 14:45 Carbon Dioxide 28 mmol/L (21-32) 12/14/17 14:45 Anion Gap 9 (8-16) 12/14/17 14:45 BUN 13 mg/dL (7-18) 12/14/17 14:45 Creatinine 0.8 mg/dL (0.55-1.02) 12/14/17 14:45 Random Glucose 102 mg/dL (74-106) 12/14/17 14:45 Calcium 8.2 mg/dL (8.5-10.1) L 12/14/17 14:45 Current Medications Generic Name Dose Route Start Last Admin Trade Name Freq PRN Reason Stop Dose Admin Acetaminophen 650 mg 12/14/17 14:55 Tylenol - PO Q4H PRN PAIN LEVEL 4 - 6 Alprazolam 0.25 mg 12/14/17 15:00 Xanax - PO Q8H PRN ANXIETY Cyclobenzaprine HCl 5 mg 12/14/17 15:00 12/14/17 15:35 Flexeril - PO 5 mg TID TANA Administration Diltiazem HCl 240 mg 12/14/17 15:00 12/14/17 15:35 Cardizem Cd - PO 240 mg DAILY TANA Administration Docusate Sodium 100 mg 12/14/17 14:55 Colace - PO BID PRN CONSTIPATION Montelukast Sodium 10 mg 12/14/17 22:00 Singulair - PO HS TANA Potassium Chloride 10 meq 12/14/17 22:00 K-Dur - PO BID TANA Quinapril HCl 10 mg 12/14/17 15:00 12/14/17 15:29 Accupril - PO Not Given DAILY TANA Ranitidine HCl 150 mg 12/14/17 15:00 12/14/17 15:35 Zantac - PO 150 mg DAILY TANA Administration Sertraline HCl 100 mg 12/14/17 15:00 12/14/17 15:36 Zoloft - PO Not Given DAILY TANA Constitutional: Yes: Anxious, Other (Pale) Eyes: Yes: Conjunctiva Clear HENT: Yes: Atraumatic Neck: Yes: Supple Cardiovascular: Yes: Regular Rate and Rhythm Respiratory: Yes: CTA Bilaterally Gastrointestinal Inspection: Yes: Scars (multiple including oblique RUQ, long vertical midline, right oaramedian and transverse incisions), Other (right abdomen analgesic pump) ...Auscultate: Yes: Normoactive Bowel Sounds ...Palpate: Yes: Soft, Other (nontender) ...Rectal Exam: Yes: Guaiac Positive, Hemorrhoids/External, Sphincter Tone Normal (soft brown but guaiac positive stool) Labs: CBC, BMP 12/14/17 14:45 12/14/17 14:45 Problem List - Problems (1) Colonic ulcer Assessment/Plan: I suspect that the perianastomotic ulcer and perhaps the dilated anastomosis to be the source of occult bleeding however find it difficult to attribute such rapidly progressive anemia to these findings. Given that a capsule will likely get stuck and culminate in the need for surgery I will need to refer her for small bowel enteroscopy at a tertiary care center after discharge. Other etiologies for anemia should be evaluated. Will also order iron infusion. Code(s): K63.3 - ULCER OF INTESTINE (2) Anastomotic stricture of small intestine Code(s): K91.89 - OTH POSTPROCEDURAL COMPLICATIONS AND DISORDERS OF DGSTV SYS (3) Gastritis Code(s): K29.70 - GASTRITIS, UNSPECIFIED, WITHOUT BLEEDING (4) GERD (gastroesophageal reflux disease) Code(s): K21.9 - GASTRO-ESOPHAGEAL REFLUX DISEASE WITHOUT ESOPHAGITIS
[2017-12-14] MEDS: POTASSIUM CHLORIDE TABS 10 MEQ TABLET.ER (FP) PO SCH (21:26)
[2017-12-14] MEDS: ALPRAZolam 0.25 MG TABLET PO PRN (21:27)
[2017-12-14] MEDS: PREGABALIN 25 MG CAPSULE PO SCH (21:41)
[2017-12-14] MEDS ORDERED: MONTELUKAST NA 10 MG TABLET PO SCH (22:00)
[2017-12-14] MEDS ORDERED: FUROSEMIDE 40 MG/4 ML INJECTABLE VIAL ONE (22:28)
[2017-12-15] MEDS: CYCLOBENZAPRINE HCL 10 MG TABLET (FP) PO SCH (06:06)
[2017-12-15] MEDS ORDERED: ONDANSETRON 4 MG/2 ML VIAL IVPUSH ONE (06:32)
[2017-12-15] MEDS ORDERED: IRON SUCROSE INJECTION 200 MG in SODIUM CHLORIDE 90 ML IVPB ONE (08:00)
[2017-12-15 08:06] LABS: BASO % 0.4 % (0-2.0); EOS % 5.7 % (0-4.5); HEMOGLOBIN 10.2 GM/dL (10.7-15.3); LYMPH % 21.5 % (8-40); MCH 26.7 pg (25.7-33.7); MEAN CELL VOLUME 80.8 fl (80-96); MEAN PLT VOLUME 8.7 fl (7.5-11.1); MONO % 8.5 % (3.8-10.2); NEUT % 63.9 % (42.8-82.8); PLATELET COUNT 355 K/MM3 (134-434); RBC 3.84 M/mm3 (3.60-5.2); RDW 19.8 % (11.6-15.6); WHITE BLOOD COUNT 6.5 K/mm3 (4.0-10.0)
[2017-12-15 08:22] LABS: CALCIUM 8.2 mg/dL (8.5-10.1); CHLORIDE 100 mmol/L (98-107); POTASSIUM 3.6 mmol/L (3.5-5.1); SGOT/AST 7 U/L (15-37); SODIUM 139 mmol/L (136-145)
[2017-12-15 08:30] LABS: ALK PHOS 102 U/L (45-117); ANION GAP 6 (8-16); BILIRUBIN,TOTAL 0.8 mg/dL (0.2-1.0); BLOOD UREA NITROGEN 13 mg/dL (7-18); CO2 33 mmol/L (21-32); CREATININE 0.9 mg/dL (0.55-1.02); GLUCOSE,RANDOM 88 mg/dL (74-106); LDH 197 U/L (84-246); SGPT/ALT 8 U/L (12-78)
--- NOTE | 2017-12-15 08:58 | PN ---
Progress Note (short form) - Note Progress Note: Patient seen and examined. Not short of breath Had Lasix in between her blood transfusions last evening. Hb 10.2 today. the patient is pale. Somewhat anxious. Was worried because she said the GI doctor wanted her to stay another day possibly for more testing as the cause of her anemia is still not clearly defined. On exam Alert and aware. no abdominal pain. No pedal edema Vital Signs Temp 98.0 F 12/15/17 09:03 Pulse 100 H 12/15/17 09:03 Resp 20 12/15/17 09:03 BP 156/78 12/15/17 09:03 Pulse Ox Hepatic Panel Total Bilirubin 0.8 mg/dL (0.2-1.0) D 12/15/17 06:00 AST 7 U/L (15-37) L 12/15/17 06:00 ALT 8 U/L (12-78) L 12/15/17 06:00 Alkaline Phosphatase 102 U/L (45-117) 12/15/17 06:00 Albumin 3.0 g/dl (3.4-5.0) L 12/15/17 06:00 impression: 1 acute blood loss, iron deficiency Questionable GI cause. Multiple surgical procedures. Anxiety Hypertension History of rotator cuff surgery Migraine headaches Plan: Follow with outpatient
[2017-12-15 09:03] VITALS: BP 156/78; PULSE 100; TEMP 98
[2017-12-15] MEDS: SERTRALINE HCL 50 MG TABLET (FP) PO SCH (09:10)
[2017-12-15] MEDS: PREGABALIN 25 MG CAPSULE PO SCH (09:10)
[2017-12-15] MEDS: POTASSIUM CHLORIDE TABS 10 MEQ TABLET.ER (FP) PO SCH (09:10)
[2017-12-15] MEDS: RANITIDINE HCL 150 MG TABLET (FP) PO SCH (09:10)
[2017-12-15] MEDS: ALPRAZolam 0.25 MG TABLET PO PRN (09:11)
[2017-12-15] MEDS: QUINAPRIL HCL 10 MG TABLET (FP) PO SCH (09:11)
[2017-12-17 06:06] LABS: SERUM IRON SATURATION 85 % (15-55); TOTAL IRON BINDING CAPACITY 389 ug/dL (250-450); UIBC 59 ug/dL (118-369)
== END 2017-12-15 12:53 | disposition home or self-care (01) ==
LOC: JBLOOD 13:49 → J7W 13:51 → JBLOOD 12-15 12:53
PROVIDERS: ATTEND Internal Medicine
PROC: 30233N1 Transfusion of Nonautologous Red Blood Cells into Peripheral Vein, Percutaneous Approach (ICD-10-PCS; principal; 2017-12-14)
DX: D50.9 Iron deficiency anemia, unspecified (principal); Z98.0 Intestinal bypass and anastomosis status; E11.9 Type 2 diabetes mellitus without complications; E03.9 Hypothyroidism, unspecified; J45.998 Other asthma
CPT/HCPCS: 36415; 36430; 80048; 80053; 82728; 83010; 83540; 83550; 83615; 85025; 85044; 86671; 86850; 86900; 86901; 86922; J1756; P9038; P9058

== ENCOUNTER 2018-01-04 09:21 | Day surgery (SDC) | payer OTHER ==
[2018-01-04] MEDS ORDERED: IRON SUCROSE INJECTION 100 MG in SODIUM CHLORIDE 100 ML IVPB ONE ×2 (12:00→13:00)
[2018-01-04 14:25] VITALS: BP 113/67; PULSE 64; TEMP 98.2
== END 2018-01-04 13:45 | disposition home or self-care (01) ==
LOC: JONCNONCHE 09:21 → J7W 12:45 → JONCNONCHE 13:45
PROVIDERS: ATTEND Internal Medicine Hematology & Oncology
PROC: 3E033GC Introduction of Other Therapeutic Substance into Peripheral Vein, Percutaneous Approach (ICD-10-PCS; principal; 2018-01-04)
DX: D50.9 Iron deficiency anemia, unspecified (principal); Z98.0 Intestinal bypass and anastomosis status; E03.9 Hypothyroidism, unspecified; E11.9 Type 2 diabetes mellitus without complications
CPT/HCPCS: 96365; J1756

== ENCOUNTER 2018-01-11 07:29 | Day surgery (SDC) | payer OTHER ==
[2018-01-11] MEDS ORDERED: IRON SUCROSE INJECTION 100 MG in SODIUM CHLORIDE 100 ML IVPB ONE (13:00)
[2018-01-11 18:35] VITALS: BP 108/60; PULSE 99; TEMP 98.4
== END 2018-01-11 14:20 | disposition home or self-care (01) ==
LOC: JONCCHEMO 07:29 → JONCNONCHE 07:29 → J7W 13:41 → JONCNONCHE 14:20
PROVIDERS: ATTEND Internal Medicine Hematology & Oncology
PROC: 3E033GC Introduction of Other Therapeutic Substance into Peripheral Vein, Percutaneous Approach (ICD-10-PCS; principal; 2018-01-11)
DX: D50.9 Iron deficiency anemia, unspecified (principal)
CPT/HCPCS: 96365; J1756

== ENCOUNTER 2018-01-21 07:33 | Day surgery (SDC) | payer OTHER ==
[2018-01-21] MEDS ORDERED: IRON SUCROSE INJECTION 100 MG in SODIUM CHLORIDE 100 ML IVPB ONE (13:00)
[2018-01-21 20:00] VITALS: BP 126/70; PULSE 98; TEMP 98
== END 2018-01-21 16:00 | disposition home or self-care (01) ==
LOC: JONCNONCHE 07:33 → J7W 14:03 → JONCNONCHE 16:00
PROVIDERS: ATTEND Internal Medicine Hematology & Oncology
PROC: 3E033GC Introduction of Other Therapeutic Substance into Peripheral Vein, Percutaneous Approach (ICD-10-PCS; principal; 2018-01-21)
DX: D50.9 Iron deficiency anemia, unspecified (principal)
CPT/HCPCS: J1756

== ENCOUNTER 2018-02-12 10:54 | Inpatient (IN) | payer OTHER ==
[2018-02-12 10:59] VITALS: BMI 30.1
--- NOTE | 2018-02-12 11:10 | PDOC ---
History of Present Illness <Ximena Monroy - Last Filed: 02/12/18 15:15> - General History Source: Patient Exam Limitations: No Limitations - History of Present Illness Initial Comments: 02/12/18 11:49 Pt is a 77 yo F with a signif PMHx of CAD, HTN, MVP, asthma, migraines, diverticulitis, gastritis, GERD, IBS, PUD, previous SBO, hypothyroidism, anemia (12/14/17-Hx of transfusion). and chronic low back pain (on at-home morphine pump ) now presenting with a 2 day hx of lower abdominal abdominal pain. Pt has a 10/ 10 lower abdominal pain worse with movement, not relieved with morphine. Patient has associated loose stools, last episode this am of brownish, non bloody stool. No dysuria, no hematuria, no fevers, no chest pain, no cough. Pt has noted reduced intake with nausea, but no vomiting. 02/12/18 12:02 02/12/18 14:31 Timing/Duration: getting worse Severity: moderate Modifying Factors: improves with: rest Associated Symptoms: reports: loss of appetite, nausea/vomiting (nausea no vomiting). denies: chest pain, cough, diaphoresis, fever/chills, headaches, malaise, rash <Claire Aviles I - Last Filed: 02/12/18 15:33> - General Chief Complaint: Pain Stated Complaint: ABD PAIN, DIARRHEA Time Seen by Provider: 02/12/18 11:09 Past History <Ximena Monroy - Last Filed: 02/12/18 15:15> - Past Medical History Anemia: Yes Asthma: Yes (NO RECENT ATTACK) Cancer: No Cardiac Disorders: Yes (MITRAL VALVE PROLAPSE,ASHD) CVA: No COPD: Yes CHF: No Dementia: No Diabetes: No GI Disorders: Yes (H/O COLON POLYPS,GERD,HIATAL HERNIA,PEPTIC ULCERS) Disorders: Yes (UTI'S) HTN: Yes Hypercholesterolemia: No Liver Disease: Yes (NON ALCOHOLIC FATTY LIVER) Seizures: No Thyroid Disease: Yes (HYPOTYHROIDISM) - Surgical History Abdominal Surgery: Yes (SX FOR BOWEL OBSTRUCTIONS AND ADHESIONS x 51 times) Appendectomy: Yes Cardiac Surgery: No Cholecystectomy: Yes (OPEN) GI Surgery: Yes Lung Surgery: No Neurologic Surgery: No Orthopedic Surgery: Yes (r shoulder replacement, then humerus fracture repair) - Immunization History Immunization Up to Date: Yes - Suicide/Smoking/Psychosocial Hx Smoking Status: No Smoking History: Never smoked Have you smoked in the past 12 months: No Number of Cigarettes Smoked Daily: 0 Information on smoking cessation initiated: No Hx Alcohol Use: No Drug/Substance Use Hx: No Substance Use Type: None Hx Substance Use Treatment: No <Agaba,Comfort I - Last Filed: 02/12/18 15:33> - Past Medical History Allergies/Adverse Reactions: Allergies Allergy/AdvReac Type Severity Reaction Status Date / Time metronidazole [From Flagyl] Allergy Intermediate Swelling Verified 02/12/18 10: 58 lactose AdvReac Verified 02/12/18 10:58 fresh fruit Allergy Vomiting Uncoded 02/12/18 10:58 fresh vegetables Allergy Uncoded 02/12/18 10:58 Home Medications: Ambulatory Orders Cholecalciferol (Vitamin D3) [Vitamin D3] 2,000 unit PO DAILY 11/02/16 Diltiazem HCl [Diltiazem 24Hr Cd] 240 mg PO HS 11/02/16 Levothyroxine [Synthroid -] 25 mcg PO DAILY 11/02/16 Montelukast Na [Singulair -] 10 mg PO DAILY 11/02/16 Nitroglycerin [Nitrostat] 0.4 mg SL PRN PRN 11/02/16 Sertraline HCl [Zoloft -] 100 mg PO DAILY 11/02/16 Sumatriptan Succinate [Imitrex -] 100 mg PO PRN 11/02/16 Polyethylene Glycol 3350 [Miralax 119 gm Btl -] 17 gm PO BID bottle 11/10/16 Acetaminophen [Tylenol .Regular Strength -] 650 mg PO Q4H PRN #0 tablet Albuterol 0.083% Nebulizer Iris [Ventolin 0.083% Nebulizer Soln -] 1 amp NEB Q4H PRN #0 amp 12/07/16 Budesonide/Formeterol Fumarate [SYMBICORT 160/4.5mcg -] 2 puff IH BID #1 inhaler 12/07/16 Quinapril HCl [Accupril -] 10 mg PO DAILY #30 tablet 12/07/16 Dicyclomine HCl [Bentyl] 10 mg PO BID PRN 11/05/17 Meclizine HCl [Antivert -] 25 mg PO TID PRN 11/05/17 Ondansetron HCl [Zofran] 8 mg PO BID PRN 11/05/17 Pregabalin [Lyrica] 25 mg PO BID 11/05/17 Potassium Chloride [K-Dur -] 10 meq PO DAILY 12/02/17 Ranitidine HCl 150 mg PO HS 12/02/17 Vitamin E 1,000 unit PO DAILY 12/02/17 Mag Carb/Aluminum Hydrox/Algin [Gaviscon Liquid] 30 ml PO Q6H PRN #355 oz Pantoprazole Sodium [Protonix -] 40 mg PO BID 30 Days #60 tablet.ec 12/03/17 Review of Systems - Review of Systems Constitutional: Yes: Loss of Appetite. No: Chills, Diaphoresis, Fever, Night Sweats HEENTM: No: Nose Congestion Respiratory: No: Cough, Orthopnea, Shortness of Breath Cardiac (ROS): No: Chest Pain, Edema ABD/GI: Yes: Abd. Pain w/ defecation, Diarrhea, Poor Fluid Intake. No: Abdominal Distended, Blood Streaked Bowels, Constipated, Difficulty Swallowing, Vomiting : No: Burning, Dysuria, Discharge, Hematuria Musculoskeletal: No: Back Pain Neurological: No: Headache, Numbness, Paresthesia, Seizure, Unsteady Gait Hematologic/Lymphatic: Yes: Anemia. No: Blood Clots, Easy Bleeding, Easy Bruising <Agaba,Comfort I - Last Filed: 02/12/18 15:33> *Physical Exam - Vital Signs Last Vital Signs Temp Pulse Resp BP Pulse Ox 97.9 F 106 H 20 103/45 94 L 02/12/18 14:49 02/12/18 10:56 02/12/18 14:49 02/12/18 14:49 02/12/18 14:49 <Ximena Monroy - Last Filed: 02/12/18 15:15> - Vital Signs Last Vital Signs Temp Pulse Resp BP Pulse Ox 98.4 F 106 H 18 107/66 92 L 02/12/18 10:56 02/12/18 10:56 02/12/18 10:56 02/12/18 10:56 02/12/18 10:56 - Physical Exam General Appearance: Yes: Mild Distress HEENT: positive: Other (dry mucus membrane). negative: Pharyngeal Erythema Neck: positive: Supple. negative: Tender Respiratory/Chest: positive: Lungs Clear, Normal Breath Sounds. negative: Chest Tender, Respiratory Distress Cardiovascular: positive: S1, S2, Tachycardia <Agaba,Comfort I - Last Filed: 02/12/18 15:33> Heart Score/ECG Review - ECG Impressions Comment:: 02/12/18 12:29 Normal sinus rhythm, ventricular rate 82bpm Nonspecific T wave abnormality abnormal EKG QT/QTc-398/464 <Agaba,Comfort I - Last Filed: 02/12/18 15:33> ED Treatment Course - LABORATORY CBC & Chemistry Diagram: 02/12/18 11:30 02/12/18 11:30 - ADDITIONAL ORDERS Additional order review: Laboratory Results 02/12/18 02/12/18 02/12/18 14:24 11:40 11:35 PT with INR INR PTT (Actin FS) Sodium Potassium Chloride Carbon Dioxide Anion Gap BUN Creatinine Creat Clearance w eGFR Random Glucose Calcium Magnesium Total Bilirubin AST ALT Alkaline Phosphatase Troponin I < 0.02 Total Protein Albumin Lipase Urine Color Yellow Urine Appearance Clear Urine pH 6.0 Ur Specific [place] 1.038 H Urine Protein Negative Urine Glucose (UA) Negative Urine Ketones Negative Urine Blood Negative Urine Nitrite Positive Urine Bilirubin Negative Urine Urobilinogen Negative Ur Leukocyte Esterase Trace Urine WBC (Auto) 4 Urine RBC (Auto) 2 Ur Epithelial Cells Rare Urine Bacteria Many Urine Mucus Rare Stool Occult Blood Positive Blood Type Antibody Screen 02/12/18 02/12/18 02/12/18 11:30 11:30 11:30 PT with INR INR PTT (Actin FS) Sodium Potassium Chloride Carbon Dioxide Anion Gap BUN Creatinine Creat Clearance w eGFR Random Glucose Calcium Magnesium 1.3 L Total Bilirubin AST ALT Alkaline Phosphatase Troponin I Total Protein Albumin Lipase 52 L Urine Color Urine Appearance Urine pH Ur Specific [place] Urine Protein Urine Glucose (UA) Urine Ketones Urine Blood Urine Nitrite Urine Bilirubin Urine Urobilinogen Ur Leukocyte Esterase Urine WBC (Auto) Urine RBC (Auto) Ur Epithelial Cells Urine Bacteria Urine Mucus Stool Occult Blood Blood Type O NEGATIVE Antibody Screen Negative 02/12/18 02/12/18 11:30 11:30 PT with INR 10.90 INR 0.96 PTT (Actin FS) 26.9 Sodium 142 Potassium 3.6 Chloride 104 Carbon Dioxide 29 Anion Gap 9 BUN 13 Creatinine 1.0 Creat Clearance w eGFR 54.05 Random Glucose 138 H Calcium 8.7 Magnesium Total Bilirubin 0.3 D AST 11 L ALT 9 L Alkaline Phosphatase 106 Troponin I Total Protein 6.4 Albumin 3.3 L Lipase Urine Color Urine Appearance Urine pH Ur Specific [facility] Urine Protein Urine Glucose (UA) Urine Ketones Urine Blood Urine Nitrite Urine Bilirubin Urine Urobilinogen Ur Leukocyte Esterase Urine WBC (Auto) Urine RBC (Auto) Ur Epithelial Cells Urine Bacteria Urine Mucus Stool Occult Blood Blood Type Antibody Screen 02/12/18 11:30 RBC 3.86 MCV 85.1 MCHC 31.6 L RDW 19.7 H D MPV 7.8 Neutrophils % 85.9 H D Lymphocytes % 5.8 L D Monocytes % 4.9 Eosinophils % 3.2 Basophils % 0.2 - RADIOLOGY Radiology Studies Ordered: Category Date Time Status CHEST X-RAY PORTABLE* [RAD] Stat Radiology 02/12/18 11:58 Completed - Medications Given in the ED: ED Medications Discontinued Medications Generic Name Dose Route Start Last Admin Trade Name Alejandra PRN Reason Stop Dose Admin Fentanyl 50 mcg 02/12/18 11:59 02/12/18 12:00 Sublimaze Injection - IVPUSH 02/12/18 12:00 50 mcg ONCE ONE Administration Hydromorphone HCl 1 mg 02/12/18 11:31 02/12/18 12:49 Dilaudid Injection - IVPB 02/12/18 11:32 Not Given ONCE ONE Magnesium Sulfate/Dextrose 2 200 mls @ 100 mls/hr 02/12/18 12:17 02/12/18 13: 22 gm/ Miscellaneous IVPB 02/12/18 14:16 100 mls/hr ONCE ONE Administration Metoclopramide HCl 10 mg 02/12/18 11:55 02/12/18 12:20 Reglan Injection - IVPUSH 02/12/18 11:56 10 mg ONCE ONE Administration Sodium Chloride 1,000 ml 02/12/18 11:55 02/12/18 12:00 Normal Saline - IV 02/12/18 11:56 1,000 ml ONCE ONE Administration <Ximena Monroy - Last Filed: 02/12/18 15:15> - LABORATORY CBC & Chemistry Diagram: 02/12/18 11:30 02/12/18 11:30 <Agaba,Comfort I - Last Filed: 02/12/18 15:33> Medical Decision Making - Medical Decision Making 02/12/18 12:12 CBC, CMP, UA, EKG, Mg, PT/PTT, Lipase, fecal occult, CXR, trops 02/12/18 12:19 Fecal occult positive Hgb-10.4 same as previous 10.4 Mg 1.3-2g ivpb 02/12/18 13:39 Patient feels better, pain is improved since iv fentanyl Pending CT abd/pelvis- CT abdomen shows partial SBO D/W Dr Garcia- conservative mx- NGT, NPO D/W Dr Nowak - to admit under Dr Sosa Patient declined the NGT- said she can talk with the surgeon and Dr Rodgers about it, but has had it in the past and does not want it 02/12/18 15:26 Will maintain her on iv 75ml/hr iv fentanyl 50mg stat Patient accepted for admission in Med Surg 02/12/18 15:33 <Claire Aviles I - Last Filed: 02/12/18 15:33> *DC/Admit/Observation/Transfer - Discharge Dispostion Admit: Yes Decision to Admit order Date/Time: Decision to Admit Order Category Date Time Status Decision to Admit to Hospital Routine Admission 02/12/18 15:14 Ordered <Ximena Monroy - Last Filed: 02/12/18 15:15> <Claire Aviles I - Last Filed: 02/12/18 15:33> Diagnosis at time of Disposition: Partial small bowel obstruction - Referrals Referrals: Jong Rodgers MD [Primary Care Provider] - - Patient Instructions - Post Discharge Activity
[2018-02-12] MEDS ORDERED: HYDROmorphone HCL CARPU-JECT 1 MG/1 ML DISP.SYRIN IVPB ONE (11:31)
[2018-02-12 11:45] LABS: BASO % 0.2 % (0-2.0); EOS % 3.2 % (0-4.5); HEMATOCRIT 32.8 % (32.4-45.2); HEMOGLOBIN 10.4 GM/dL (10.7-15.3); LYMPH % 5.8 % (8-40); MCH 26.9 pg (25.7-33.7); MCHC 31.6 g/dl (32.0-36.0); MEAN CELL VOLUME 85.1 fl (80-96); MEAN PLT VOLUME 7.8 fl (7.5-11.1); MONO % 4.9 % (3.8-10.2); NEUT % 85.9 % (42.8-82.8); PLATELET COUNT 311 K/MM3 (134-434); RBC 3.86 M/mm3 (3.60-5.2); RDW 19.7 % (11.6-15.6)
[2018-02-12] MEDS ORDERED: SODIUM CHLORIDE 0.9% 1000 ML INFUS.BAG IV ONE (11:55)
[2018-02-12] MEDS ORDERED: METOCLOPRAMIDE HCL INJECTION 10 MG/2 ML VIAL IVPUSH ONE (11:55)
[2018-02-12 11:57] LABS: INR 0.96 (0.82-1.09); PROTHROMBIN TIME (PATIENT) 10.9 SEC (9.7-13.0)
--- NOTE | 2018-02-12 11:58 | PDOC ---
Attending Attestation - Resident Resident Name: Claire Aviles I - ED Attending Attestation I have performed the following: I have examined & evaluated the patient, The case was reviewed & discussed with the resident, I agree w/resident's findings & plan, Exceptions are as noted - Medical Decision Making 02/12/18 11:58 I, Dr. Ximena Monroy, DO, attest that this document has been prepared under my direction and personally reviewed by me in its entirety. I further attest, that it accurately reflects all work, treatment, procedures and medical decision -making performed by me. 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 Garcia who recommends NGT at this time Dr. Rodgers is covered by dr. Nowak today <Ximena Monroy - Last Filed: 02/12/18 15:12> - HPI HPI: 02/12/18 12:13 The patient is a 77-year-old female, with a significant past medical history of CAD, HTN, MVP, asthma, migraines, diverticulitis, gastritis, GERD, IBS, PUD, previous SBO, hypothyroidism, anemia (Hx of transfusion), and chronic low back pain (on at-home morphine pump), who presents to the ED with 2 days of lower abdominal pain. The patient describes her pain as 10/10 in severity and worsened with movement. The morphine does not alleviate the pain. She reports having diarrhea; last episode this morning. Stool was brown in color and nonbloody. She reports loss of appetite due to nausea. The patient denies any fever, chills, or vomiting. She denies any hematuria. She denies any chest pain or shortness of breath. PCP: Dr. Rodgers - Physicial Exam PE: 02/12/18 12:14 GENERAL: Awake, alert, and fully oriented, in no acute distress HEAD: No signs of trauma EYES: PERRLA, EOMI, sclera anicteric, conjunctiva clear ENT: Auricles normal inspection, hearing grossly normal, nares patent, oropharynx clear without exudates. Moist mucosa NECK: Normal ROM, supple, no lymphadenopathy, JVD, or masses LUNGS: (+)Lungs are clear but diminished at bases. No wheezes, and no crackles HEART: (+)Tachy. Normal S1 and S2, no murmurs, rubs or gallops ABDOMEN: (+)Tenderness in the LLQ, suprapubic region, and RLQ; Morphine pump in the RLQ. Soft, normoactive bowel sounds. No guarding, no rebound. No masses EXTREMITIES: Normal range of motion, no edema. No clubbing or cyanosis. No cords, erythema, or tenderness NEUROLOGICAL: Cranial nerves II through XII grossly intact. Normal speech, normal gait SKIN: Warm, Dry, normal turgor, no rashes or lesions noted <Rianna Srinivasan - Last Filed: 02/12/18 15:13> Heart Score/ECG Review - ECG Intrepretation Comment:: 02/12/18 14:05 sinus at 82, nl axis, nl nterval, t wave inversions septally, t wave flattening inferior leads, no acute st changes <Ximena Monroy - Last Filed: 02/12/18 15:12> Attestations - Attestations 02/12/18 12:18 Documentation prepared by Rianna Srinivasan, acting as director of medical review for Ximena Monroy DO. <Rianna Srinivasan - Last Filed: 02/12/18 15:13>
[2018-02-12 12:00] LABS: ACTIVATED PTT 26.9 SECONDS (26.9-34.4)
[2018-02-12] MEDS ORDERED: METOCLOPRAMIDE HCL INJECTION 10 MG/2 ML VIAL ONE (12:01)
[2018-02-12 12:42] LABS: ALBUMIN 3.3 g/dl (3.4-5.0); ALK PHOS 106 U/L (45-117); ANION GAP 9 (8-16); BILIRUBIN,TOTAL 0.3 mg/dL (0.2-1.0); BLOOD UREA NITROGEN 13 mg/dL (7-18); CALCIUM 8.7 mg/dL (8.5-10.1); CHLORIDE 104 mmol/L (98-107); CO2 29 mmol/L (21-32); GLUCOSE,RANDOM 138 mg/dL (74-106); POTASSIUM 3.6 mmol/L (3.5-5.1); SGOT/AST 11 U/L (15-37); SGPT/ALT 9 U/L (12-78); SODIUM 142 mmol/L (136-145); TOT PROT 6.4 g/dl (6.4-8.2)
[2018-02-12] MEDS ORDERED: MAGNESIUM SULF 50% (8.12 MEQ/2 ML-1 GM VIAL) ONE (13:16)
[2018-02-12 15:05] LABS: URINE COLOR YELLOW
[2018-02-12 15:06] LABS: URINE APPEARANCE CLEAR; URINE BILIRUBIN NEGATIVE (<2.0 mg/dL); URINE GLUCOSE (UA) NEGATIVE (NEGATIVE); URINE KETONE NEGATIVE (NEGATIVE); URINE LEUK ESTERASE TRACE (NEGATIVE); URINE NITRITE POSITIVE (NEGATIVE); URINE PROTEIN NEGATIVE (NEGATIVE); URINE UROBILINOGEN NEGATIVE mg/dL (0.2-1.0)
[2018-02-12 15:08] LABS: EPI CELLS RARE /HPF (FEW); URINE MUCUS RARE
[2018-02-12 15:09] LABS: URINE BACTERIA MANY /hpf (NONE SEEN)
[2018-02-12] MEDS ORDERED: ALBUTEROL SO4 0.083% IH SOL 2.5 MG/3 ML VIAL.NEB. NEB PRN (15:15)
[2018-02-12] MEDS ORDERED: HYDROmorphone HCL CARPU-JECT 1 MG/1 ML DISP.SYRIN IVPB PRN (15:17)
[2018-02-12] MEDS ORDERED: NITROGLYCERIN SUBLINGUAL 1/150 0.4 MG TAB SL PRN (15:18)
[2018-02-12] MEDS: SODIUM CHLORIDE 1,000 ML IV SCH (15:30)
[2018-02-12] MEDS ORDERED: PANTOPRAZOLE SODIUM 40 MG VIAL ONE (15:31)
[2018-02-12] MEDS: PANTOPRAZOLE SODIUM 40 MG VIAL IVPUSH SCH (15:43)
[2018-02-12] MEDS: D5-1/2NS+10 MEQ KCL - 10 MEQ/1,000 ML INFUS.BAG IV SCH (16:20)
--- NOTE | 2018-02-12 16:52 | HP ---
Admitting History and Physical - Primary Care Physician PCP: f - Admission Chief Complaint: abd pain History of Present Illness: 77 yrs old F multiple Co-morbidities H/O HTN, Migraine,Irritable colon, Diverticulitis recurrent SBO present with c/o Diarrhea with nausea and mild abdominal pain and distention, feeling denies any fever, able to pass flatus last BM was in am in the Ed W/U SHOWs partial SBO admitted for further management, Patient last colonoscopy vwas on 12/03/17 revealed a stenotic end to side anastamosis in the prox. transverse colon that underwent balloon dilation at her perianastomotic stricture which was dilated by the scope. Her last EGD on 12/03/17 revealed gastritis. She has a morphine pump implanted in her abdominal wall which she says is still active? CT scan revealed changes c/ w a partial small bowel obstruction. couldn't tolerate NG Tube. 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 with Dr Amaro 01/15) Renal/: Yes: UTI Heme/Onc: Yes: Anemia Psych: Yes: Anxiety Musculoskeletal: Yes: Chronic low back pain, Osteoarthritis Endocrine: Yes: Hypothyroidism - Past Surgical History Past Surgical History: Yes: Appendectomy, Cataract Removal, Cholecystectomy, Colectomy (right hemicolectomy), Colonoscopy, Joint Replacement (right shoulder 2017), Oopherectomy (right side), Upper Endoscopy - Smoking History Smoking history: Never smoked Have you smoked in the past 12 months: No Aproximately how many cigarettes per day: 0 - Alcohol/Substance Use Hx Alcohol Use: No History of Substance Use: reports: None - Social History ADL: Independent 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 History of Recent Travel: No Home Medications - Allergies Allergies/Adverse Reactions: Allergies Allergy/AdvReac Type Severity Reaction Status Date / Time metronidazole [From Flagyl] Allergy Intermediate Swelling Verified 02/12/18 10: 58 lactose AdvReac Verified 02/12/18 10:58 fresh fruit Allergy Vomiting Uncoded 02/12/18 10:58 fresh vegetables Allergy Uncoded 02/12/18 10:58 - Home Medications Home Medications: Ambulatory Orders Cholecalciferol (Vitamin D3) [Vitamin D3] 2,000 unit PO DAILY 11/02/16 Diltiazem HCl [Diltiazem 24Hr Cd] 240 mg PO HS 11/02/16 Levothyroxine [Synthroid -] 25 mcg PO DAILY 11/02/16 Montelukast Na [Singulair -] 10 mg PO DAILY 11/02/16 Nitroglycerin [Nitrostat] 0.4 mg SL PRN PRN 11/02/16 Sertraline HCl [Zoloft -] 100 mg PO DAILY 11/02/16 Sumatriptan Succinate [Imitrex -] 100 mg PO PRN 11/02/16 Polyethylene Glycol 3350 [Miralax 119 gm Btl -] 17 gm PO BID bottle 11/10/16 Acetaminophen [Tylenol .Regular Strength -] 650 mg PO Q4H PRN #0 tablet Albuterol 0.083% Nebulizer Iris [Ventolin 0.083% Nebulizer Soln -] 1 amp NEB Q4H PRN #0 amp 12/07/16 Budesonide/Formeterol Fumarate [SYMBICORT 160/4.5mcg -] 2 puff IH BID #1 inhaler 12/07/16 Quinapril HCl [Accupril -] 10 mg PO DAILY #30 tablet 12/07/16 Dicyclomine HCl [Bentyl] 10 mg PO BID PRN 11/05/17 Meclizine HCl [Antivert -] 25 mg PO TID PRN 11/05/17 Ondansetron HCl [Zofran] 8 mg PO BID PRN 11/05/17 Pregabalin [Lyrica] 25 mg PO BID 11/05/17 Potassium Chloride [K-Dur -] 10 meq PO DAILY 12/02/17 Ranitidine HCl 150 mg PO HS 12/02/17 Vitamin E 1,000 unit PO DAILY 12/02/17 Mag Carb/Aluminum Hydrox/Algin [Gaviscon Liquid] 30 ml PO Q6H PRN #355 oz Pantoprazole Sodium [Protonix -] 40 mg PO BID 30 Days #60 tablet.ec 02/23/18 Family Disease History - Family Disease History Family Disease History: CA: Father (lung), Mother (breast) Review of Systems - Review of Systems Constitutional: reports: Diaphoresis. denies: Fever HENT: denies: Difficult Swallowing, Ear Discharge Neck: denies: Decreased ROM, Lumps, Pain on Movement Cardiovascular: denies: Chest Pain, Edema, Palpitations, Shortness of Breath Respiratory: denies: Cough, Exercise Intolerance Gastrointestinal: reports: Abdominal Pain, Bloating, Diarrhea, Vomiting. denies : Rectal Bleeding Musculoskeletal: reports: Crepitus. denies: Back Pain Neurological: denies: Change in LOC, Change in Speech Endocrine: denies: Excessive Sweating, Flushing Pain Intensity: 4 Physical Examination Vital Signs: Vital Signs Temperature 97.9 F 02/12/18 15:34 Pulse Rate 87 02/12/18 15:34 Respiratory Rate 20 02/12/18 15:34 Blood Pressure 103/45 02/12/18 15:34 O2 Sat by Pulse Oximetry (%) 94 L 02/12/18 15:34 Elderly F comfortable c/o mild abd pain HEENT: Mm moist, no anemia NECK: No JVd No Bruit CHEST: CTA B/L CVS: S1S2 R no m/g/ ABD: Palpable morphine pump in RTLQ Mild Distention diffuse tenderness BS + EXT: Trace edema feet, Pulses + LAUNCH OPERATOR: AOX3 non focal Labs: CBC, BMP 02/12/18 11:30 02/12/18 11:30 Imaging - Results Chest X-ray: Report Reviewed (Normal) Cat Scan: Report Reviewed (ABD: Partial SBO) EKG: Report Reviewed (No acute St T changes) Problem List - Problems (1) Partial small bowel obstruction Assessment/Plan: NPO , refused NG Tacos will observe NPO cont PO Meds IV Hydration., GI and Surgery consult Code(s): K56.600 - PARTIAL INTESTINAL OBSTRUCTION, UNSPECIFIED TO CAUSE (2) HTN (hypertension) Assessment/Plan: Well controlled cont all home meds Code(s): I10 - ESSENTIAL (PRIMARY) HYPERTENSION Qualifiers: Hypertension type: essential hypertension Qualified Code(s): I10 - Essential (primary) hypertension (3) GERD (gastroesophageal reflux disease) Assessment/Plan: On PPI Code(s): K21.9 - GASTRO-ESOPHAGEAL REFLUX DISEASE WITHOUT ESOPHAGITIS (4) B12 deficiency Assessment/Plan: On Vutamin B12 Code(s): E53.8 - DEFICIENCY OF OTHER SPECIFIED B GROUP VITAMINS (5) Asthma Assessment/Plan: Cont all home meds Code(s): J45.909 - UNSPECIFIED ASTHMA, UNCOMPLICATED (6) Vertigo Assessment/Plan: Cont Meclizine Code(s): R42 - DIZZINESS AND GIDDINESS (7) Anastomotic stricture of small intestine Assessment/Plan: S/P Dilatation i Nov 2017 Code(s): K91.89 - OTH POSTPROCEDURAL COMPLICATIONS AND DISORDERS OF DGSTV SYS (8) Mitral valve prolapse Assessment/Plan: No active issue Code(s): I34.1 - NONRHEUMATIC MITRAL (VALVE) PROLAPSE
--- NOTE | 2018-02-12 17:00 | CONSULT ---
Consult Consult Specialty:: general surgery Referred by:: jeyson Reason for Consultation:: SBO - History of Present Illness Chief Complaint: nausea/ hx of SBO History of Present Illness: 77 yo female PMH diverticular disease, chronic abdominal pain, morphine pump, colitis, gastrointestinal bleed, diarrhea presented to the emergency department reporting abdominal pain that started 1 week ago. She has had many previous episodes, no vomiting only nausea. She took zofran, used morphine pump without relief. She has a know stenotic surgical anastomosis multiple history of hospital admissions for small bowel obstruction. previously successfully managed with NGT decompression. extensive history of abdominal surgery. She had loose BM whichis her baseline and flatus. CT scan showeed and obstructive pattern and we were asked to assess. 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 cervical and lumbar radiculopathy. avascular necrosis of femoral head. 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 Travel: No Home Medications - Allergies Allergies/Adverse Reactions: Allergies Allergy/AdvReac Type Severity Reaction Status Date / Time metronidazole [From Flagyl] Allergy Intermediate Swelling Verified 02/12/18 10: 58 lactose AdvReac Verified 02/12/18 10:58 fresh fruit Allergy Vomiting Uncoded 02/12/18 10:58 fresh vegetables Allergy Uncoded 02/12/18 10:58 - Home Medications Home Medications: Ambulatory Orders Cholecalciferol (Vitamin D3) [Vitamin D3] 2,000 unit PO DAILY 11/02/16 Diltiazem HCl [Diltiazem 24Hr Cd] 240 mg PO HS 11/02/16 Levothyroxine [Synthroid -] 25 mcg PO DAILY 11/02/16 Montelukast Na [Singulair -] 10 mg PO DAILY 11/02/16 Nitroglycerin [Nitrostat] 0.4 mg SL PRN PRN 11/02/16 Sertraline HCl [Zoloft -] 100 mg PO DAILY 11/02/16 Sumatriptan Succinate [Imitrex -] 100 mg PO PRN 11/02/16 Polyethylene Glycol 3350 [Miralax 119 gm Btl -] 17 gm PO BID bottle 11/10/16 Acetaminophen [Tylenol .Regular Strength -] 650 mg PO Q4H PRN #0 tablet Albuterol 0.083% Nebulizer Iris [Ventolin 0.083% Nebulizer Soln -] 1 amp NEB Q4H PRN #0 amp 12/07/16 Budesonide/Formeterol Fumarate [SYMBICORT 160/4.5mcg -] 2 puff IH BID #1 inhaler 12/07/16 Quinapril HCl [Accupril -] 10 mg PO DAILY #30 tablet 12/07/16 Dicyclomine HCl [Bentyl] 10 mg PO BID PRN 11/05/17 Meclizine HCl [Antivert -] 25 mg PO TID PRN 11/05/17 Ondansetron HCl [Zofran] 8 mg PO BID PRN 11/05/17 Pregabalin [Lyrica] 25 mg PO BID 11/05/17 Potassium Chloride [K-Dur -] 10 meq PO DAILY 12/02/17 Ranitidine HCl 150 mg PO HS 12/02/17 Vitamin E 1,000 unit PO DAILY 12/02/17 Mag Carb/Aluminum Hydrox/Algin [Gaviscon Liquid] 30 ml PO Q6H PRN #355 oz Pantoprazole Sodium [Protonix -] 40 mg PO BID 30 Days #60 tablet.ec 12/03/17 Family Disease History - Family Disease History Family Disease History: CA: Father (lung), Mother (breast) Review of Systems - Review of Systems Constitutional: denies: Chills, Fever, Unintentional Wgt. Loss Eyes: denies: Blurred Vision, Recent Change in Vision HENT: denies: Difficult Swallowing, Throat Pain Neck: denies: Pain on Movement, Tenderness Cardiovascular: denies: Chest Pain, Palpitations Respiratory: denies: Cough, SOB Gastrointestinal: reports: Abdominal Pain, Bloating, Diarrhea, Nausea. denies: Vomiting Genitourinary: denies: Burning, Discharge, Dysuria, Flank Pain Breasts: reports: No Symptoms Reported. denies: Pain Musculoskeletal: denies: Muscle Pain, Muscle Weakness Integumentary: denies: Lesions, Rash Neurological: denies: Change in LOC, Change in Speech Endocrine: denies: Unexplained Weight Gain, Unexplained Weight Loss Hematology/Lymphatic: denies: Easily Bruised, Excessive Bleeding Psychiatric: denies: Anxiety, Depression Physical Exam Vital Signs: Vital Signs Temperature 97.9 F 02/12/18 15:34 Pulse Rate 87 02/12/18 15:34 Respiratory Rate 20 02/12/18 15:34 Blood Pressure 103/45 02/12/18 15:34 O2 Sat by Pulse Oximetry (%) 94 L 02/12/18 15:34 Constitutional: Yes: No Distress, Calm, Obese Eyes: Yes: Conjunctiva Clear, EOM Intact HENT: Yes: Atraumatic, Normocephalic Neck: Yes: Supple, Trachea Midline Cardiovascular: Yes: Regular Rate and Rhythm, S1, S2 Respiratory: Yes: Regular, CTA Bilaterally Gastrointestinal: Yes: Normal Bowel Sounds, Soft, Distention. No: Palpable Mass , Tenderness ...Rectal Exam: Yes: Deferred Renal/: No: CVA Tenderness - Left, CVA Tenderness - Right Extremities: No: Cool, Cyanosis Edema: No Peripheral Pulses WNL: Yes Integumentary: No: Jaundice Wound/Incision: Yes: Clean/Dry, Well Approximated Neurological: Yes: Alert, Oriented Psychiatric: Yes: Alert, Oriented Labs: CBC, BMP 02/12/18 11:30 02/12/18 11:30 Imaging - Results Cat Scan: Report Reviewed, Image Reviewed (partial SBO patern RLQ abdomnal wall object and multiple bowel anastmois) Problem List - Problems (1) Partial small bowel obstruction Assessment/Plan: 77yo female MMP with partial SBO, No acute surgical intervention is indicated. Passing BM and flatus now. NPO and IVF hydration NGT was suggested and refused by patient Adequate analgesia will follow for serial exams Thank you for the opportunity to participate in the care of this patient. Code(s): K56.600 - PARTIAL INTESTINAL OBSTRUCTION, UNSPECIFIED TO CAUSE (2) Anastomotic stricture of small intestine Code(s): K91.89 - OTH POSTPROCEDURAL COMPLICATIONS AND DISORDERS OF DGSTV SYS (3) Anemia Code(s): D64.9 - ANEMIA, UNSPECIFIED Qualifiers: Anemia type: unspecified type Qualified Code(s): D64.9 - Anemia, unspecified (4) Colonic ulcer Code(s): K63.3 - ULCER OF INTESTINE (5) Community acquired pneumonia Code(s): J18.9 - PNEUMONIA, UNSPECIFIED ORGANISM (6) Diverticulosis Code(s): K57.90 - DVRTCLOS OF INTEST, PART UNSP, W/O PERF OR ABSCESS W/O BLEED (7) Leukopenia Code(s): D72.819 - DECREASED WHITE BLOOD CELL COUNT, UNSPECIFIED (8) Asthma Code(s): J45.909 - UNSPECIFIED ASTHMA, UNCOMPLICATED Qualifiers: Asthma severity: moderate (9) HTN (hypertension) Code(s): I10 - ESSENTIAL (PRIMARY) HYPERTENSION Qualifiers: Hypertension type: essential hypertension Qualified Code(s): I10 - Essential (primary) hypertension (10) Hypothyroid Code(s): E03.9 - HYPOTHYROIDISM, UNSPECIFIED Qualifiers: Hypothyroidism type: unspecified Qualified Code(s): E03.9 - Hypothyroidism , unspecified
[2018-02-12] MEDS ORDERED: PT OWN MED DRAWER 7, Y5N ONE (21:18)
[2018-02-12] MEDS: SUMAtriptan SUCCINATE 50 MG TABLET PO PRN (21:50)
[2018-02-12] MEDS: PREGABALIN 25 MG CAPSULE PO SCH (21:51)
[2018-02-12] MEDS: morphine SULFATE 4 MG/ML VIAL IVPB PRN (21:51)
[2018-02-12] MEDS: BUDESONIDE/FORMETEROL FUMARATE 160/4.5 mcg INHALER IH SCH (22:35)
[2018-02-12] MEDS ORDERED: ONDANSETRON 4 MG/2 ML VIAL IVPUSH PRN (23:22)
[2018-02-12] MEDS ORDERED: MECLIZINE HCL 25 MG TABLET (FP) PO PRN (23:22)
[2018-02-13] MEDS: morphine SULFATE 4 MG/ML VIAL IVPB PRN ×4 (03:55→21:51)
[2018-02-13] MEDS: D5-1/2NS+10 MEQ KCL - 10 MEQ/1,000 ML INFUS.BAG IV SCH ×2 (05:13→15:30)
[2018-02-13] MEDS: LEVOTHYROXINE NA 25 MCG TABLET (FP) PO SCH (06:29)
[2018-02-13 07:50] LABS: BASO % 0.1 % (0-2.0); EOS % 8.2 % (0-4.5); HEMATOCRIT 27.6 % (32.4-45.2); HEMOGLOBIN 8.8 GM/dL (10.7-15.3); LYMPH % 16.4 % (8-40); MCH 26.9 pg (25.7-33.7); MCHC 31.7 g/dl (32.0-36.0); MEAN CELL VOLUME 84.9 fl (80-96); MEAN PLT VOLUME 8.4 fl (7.5-11.1); MONO % 8.3 % (3.8-10.2); PLATELET COUNT 276 K/MM3 (134-434); RBC 3.25 M/mm3 (3.60-5.2); RDW 19.7 % (11.6-15.6); WHITE BLOOD COUNT 6.2 K/mm3 (4.0-10.0)
[2018-02-13 08:18] LABS: ALBUMIN 2.6 g/dl (3.4-5.0); ANION GAP 4 (8-16); BILIRUBIN,TOTAL 0.3 mg/dL (0.2-1.0); BLOOD UREA NITROGEN 6 mg/dL (7-18); CALCIUM 7.8 mg/dL (8.5-10.1); CHLORIDE 108 mmol/L (98-107); CO2 32 mmol/L (21-32); CREATININE 0.8 mg/dL (0.55-1.02); GLUCOSE,RANDOM 103 mg/dL (74-106); POTASSIUM 3.6 mmol/L (3.5-5.1); SGOT/AST 8 U/L (15-37); SGPT/ALT 8 U/L (12-78); SODIUM 144 mmol/L (136-145); TOT PROT 5.2 g/dl (6.4-8.2)
[2018-02-13 08:26] LABS: ALK PHOS 85 U/L (45-117)
[2018-02-13] MEDS ORDERED: PT OWN MED DRAWER 7, Y5N ONE ×2 (09:52→21:31)
[2018-02-13] MEDS: BUDESONIDE/FORMETEROL FUMARATE 160/4.5 mcg INHALER IH SCH ×2 (09:57→22:39)
[2018-02-13] MEDS: PANTOPRAZOLE SODIUM 40 MG VIAL IVPUSH SCH (09:57)
[2018-02-13] MEDS: PREGABALIN 25 MG CAPSULE PO SCH ×2 (09:58→21:51)
[2018-02-13] MEDS: SERTRALINE HCL 50 MG TABLET (FP) PO SCH (09:58)
[2018-02-13] MEDS ORDERED: PATIENT'S OWN MEDICATION (NON-FORMULARY) (Sertraline Hcl [Zoloft -] 100 MG) PO SCH (10:00)
--- NOTE | 2018-02-13 10:01 | CON.GI ---
Consult Consult Specialty:: GI: Dr. Kincaid covering for Dr. Stewart Referred by:: Dr. Sosa Reason for Consultation:: SBO - History of Present Illness Chief Complaint: Abdominal pain History of Present Illness: 77F has been experiencing progressively worsening abdominal pain over the last week along with liquid bowel movements. This is a pattern that she describes whenever she has had intermittent small bowel obstructions. She has a h/o chronic GI bleeding, pain and narcotic induced constipation with paradoxical diarrhea that resolved with Movantik. She has also had a history of small bowel obstructions as well. Her last colonoscopy on 12/03/17 revealed a stenotic end to side anastamosis in the prox. transverse colon that underwent balloon dilation at her perianastomotic stricture which was dilated by the scope. Her last EGD on revealed gastritis. She has a morphine pump implanted in her abdominal wall which she says is still active? CT scan revealed changes c/w a partial small bowel obstruction. NGT was attempted however Ms. Moreland refused. 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 cervical and lumbar radiculopathy. avascular necrosis of femoral head. 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 Travel: No Home Medications - Allergies Allergies/Adverse Reactions: Allergies Allergy/AdvReac Type Severity Reaction Status Date / Time metronidazole [From Flagyl] Allergy Intermediate Swelling Verified 02/12/18 10: 58 lactose AdvReac Verified 02/12/18 10:58 fresh fruit Allergy Vomiting Uncoded 02/12/18 10:58 fresh vegetables Allergy Uncoded 02/12/18 10:58 - Home Medications Home Medications: Ambulatory Orders Cholecalciferol (Vitamin D3) [Vitamin D3] 2,000 unit PO DAILY 11/02/16 Diltiazem HCl [Diltiazem 24Hr Cd] 240 mg PO HS 11/02/16 Levothyroxine [Synthroid -] 25 mcg PO DAILY 11/02/16 Montelukast Na [Singulair -] 10 mg PO DAILY 11/02/16 Nitroglycerin [Nitrostat] 0.4 mg SL PRN PRN 11/02/16 Sertraline HCl [Zoloft -] 100 mg PO DAILY 11/02/16 Sumatriptan Succinate [Imitrex -] 100 mg PO PRN 11/02/16 Polyethylene Glycol 3350 [Miralax 119 gm Btl -] 17 gm PO BID bottle 11/10/16 Acetaminophen [Tylenol .Regular Strength -] 650 mg PO Q4H PRN #0 tablet Albuterol 0.083% Nebulizer Iris [Ventolin 0.083% Nebulizer Soln -] 1 amp NEB Q4H PRN #0 amp 12/07/16 Budesonide/Formeterol Fumarate [SYMBICORT 160/4.5mcg -] 2 puff IH BID #1 inhaler 12/07/16 Quinapril HCl [Accupril -] 10 mg PO DAILY #30 tablet 12/07/16 Dicyclomine HCl [Bentyl] 10 mg PO BID PRN 11/05/17 Meclizine HCl [Antivert -] 25 mg PO TID PRN 11/05/17 Ondansetron HCl [Zofran] 8 mg PO BID PRN 11/05/17 Pregabalin [Lyrica] 25 mg PO BID 11/05/17 Potassium Chloride [K-Dur -] 10 meq PO DAILY 12/02/17 Ranitidine HCl 150 mg PO HS 12/02/17 Vitamin E 1,000 unit PO DAILY 12/02/17 Mag Carb/Aluminum Hydrox/Algin [Gaviscon Liquid] 30 ml PO Q6H PRN #355 oz Pantoprazole Sodium [Protonix -] 40 mg PO BID 30 Days #60 tablet.ec 12/03/17 Family Disease History - Family Disease History Family Disease History: CA: Father (lung), Mother (breast) Review of Systems - Review of Systems Constitutional: denies: Chills Cardiovascular: denies: Chest Pain Respiratory: denies: SOB Gastrointestinal: reports: Abdominal Pain, Diarrhea. denies: Melena, Rectal Bleeding, Vomiting Physical Exam-GI Vital Signs: Vital Signs Temperature 98.3 F 02/13/18 07:39 Pulse Rate 88 02/13/18 07:39 Respiratory Rate 18 02/13/18 07:39 Blood Pressure 100/52 02/13/18 07:39 O2 Sat by Pulse Oximetry (%) 95 02/13/18 08:28 Constitutional: Yes: Calm Eyes: No: Sclera Icterus Cardiovascular: Yes: Regular Rate and Rhythm, Murmur (systolic at the LSB) Respiratory: Yes: CTA Bilaterally Gastrointestinal Inspection: Yes: Scars (multiple surgical scars). No: Distention, Hernia ...Auscultate: Yes: Normoactive Bowel Sounds ...Palpate: Yes: Soft, Tenderness (TTP mid abdomen, no guarding/rebound) ...Percussion: Yes: Tympanitic Edema: No (No LE edema) Neurological: Yes: Alert, Oriented Labs: CBC, BMP 02/13/18 07:00 02/13/18 07:00 INR, PTT INR 0.96 (0.82-1.09) 02/12/18 11:30 Hepatic Panel Total Bilirubin 0.3 mg/dL (0.2-1.0) 02/13/18 07:00 AST 8 U/L (15-37) L 02/13/18 07:00 ALT 8 U/L (12-78) L 02/13/18 07:00 Alkaline Phosphatase 85 U/L (45-117) 02/13/18 07:00 Albumin 2.6 g/dl (3.4-5.0) L 02/13/18 07:00 Imaging - Results Cat Scan: Report Reviewed, Image Reviewed Problem List - Problems (1) Partial small bowel obstruction Assessment/Plan: Given significant abdominal surgical history, a bowel obstruction from adhesions would need to be considered. Unclear if this is related to the previously noted anastamotic enterocolonic stricture noted on recent colonoscopy. I called Dr. Baez to review the CT scan and await call back. Foor now: Surgery is consulted NPO IV hydration Avoid opiate analgesia Correct lytes Code(s): K56.600 - PARTIAL INTESTINAL OBSTRUCTION, UNSPECIFIED TO CAUSE
--- NOTE | 2018-02-13 11:45 | PN ---
Progress Note, Physician - Current Medication List Current Medications: Active Medications Albuterol Sulfate (Ventolin 0.083% Nebulizer Soln -) 1 amp NEB Q4H PRN PRN Reason: SHORT OF BREATH/WHEEZING Budesonide/Formoterol Fumarate (Symbicort 160/4.5mcg -) 2 puff IH BID [facility] Last Admin: 02/13/18 09:57 Dose: 2 puff Diltiazem HCl (Cardizem Cd -) 240 mg PO HS [facility] Last Admin: 02/12/18 21:51 Dose: 240 mg Sodium Chloride (Normal Saline -) 1,000 mls @ 75 mls/hr IV ASDIR [facility] Last Admin: 02/12/18 15:30 Dose: 75 mls/hr Potassium Chloride/Dextrose/Sod Cl (D5-1/2ns+10 Meq Kcl -) 10 meq in 1,000 mls @ 100 mls/hr IV ASDIR [facility] Last Admin: 02/13/18 05:13 Dose: 100 mls/hr Levothyroxine Sodium (Synthroid -) 25 mcg PO ACBK [facility] Last Admin: 02/13/18 06:29 Dose: 25 mcg Meclizine HCl (Antivert -) 25 mg PO Q8H PRN PRN Reason: VERTIGO Morphine Sulfate (Morphine Sulfate) 2 mg IVPB Q4H PRN PRN Reason: PAIN Last Admin: 02/13/18 09:58 Dose: 2 mg Nitroglycerin (Nitrostat -) 0.4 mg SL PRN PRN PRN Reason: CHEST PAIN Ondansetron HCl (Zofran Injection) 4 mg IVPUSH Q4H PRN PRN Reason: NAUSEA AND/OR VOMITING Pantoprazole Sodium (Protonix Iv) 40 mg IVPUSH DAILY [facility] Last Admin: 02/13/18 09:57 Dose: 40 mg Pregabalin (Lyrica -) 25 mg PO BID [facility] Last Admin: 02/13/18 09:58 Dose: 25 mg Quinapril HCl (Accupril -) 10 mg PO DAILY [facility] Sertraline HCl (Zoloft -) 100 mg PO DAILY [facility] Last Admin: 02/13/18 09:58 Dose: 100 mg Sumatriptan Succinate (Imitrex -) 100 mg PO DAILY PRN PRN Reason: MIGRANE Last Admin: 02/12/18 21:50 Dose: 100 mg - Objective Vital Signs: Vital Signs Temperature 98.3 F 02/13/18 07:39 Pulse Rate 88 02/13/18 07:39 Respiratory Rate 18 02/13/18 07:39 Blood Pressure 100/52 02/13/18 07:39 O2 Sat by Pulse Oximetry (%) 95 02/13/18 08:28 Elderly F comfortable c/o mild abd pain HEENT: Mm moist, no anemia NECK: No JVd No Bruit CHEST: CTA B/L CVS: S1S2 R no m/g/ ABD: Mild Distention diffuse tenderness BS + EXT: Trace edema feet 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 Labs: CBC, BMP 02/13/18 07:00 02/13/18 07:00 INR, PTT INR 0.96 (0.82-1.09) 02/12/18 11:30 Problem List - Problems (1) Partial small bowel obstruction Assessment/Plan: NPO , refused NG Rube will observe NPO cont PO Meds IV Hydration., GI and Surgery consult Code(s): K56.600 - PARTIAL INTESTINAL OBSTRUCTION, UNSPECIFIED TO CAUSE (2) HTN (hypertension) Assessment/Plan: Well controlled cont all home meds Code(s): I10 - ESSENTIAL (PRIMARY) HYPERTENSION Qualifiers: Hypertension type: essential hypertension Qualified Code(s): I10 - Essential (primary) hypertension (3) GERD (gastroesophageal reflux disease) Assessment/Plan: On PPI Code(s): K21.9 - GASTRO-ESOPHAGEAL REFLUX DISEASE WITHOUT ESOPHAGITIS (4) B12 deficiency Assessment/Plan: On Vutamin B12 Code(s): E53.8 - DEFICIENCY OF OTHER SPECIFIED B GROUP VITAMINS (5) Asthma Assessment/Plan: Cont all home meds Code(s): J45.909 - UNSPECIFIED ASTHMA, UNCOMPLICATED (6) Vertigo Assessment/Plan: Cont Meclizine Code(s): R42 - DIZZINESS AND GIDDINESS (7) Anastomotic stricture of small intestine Assessment/Plan: S/P Dilatation i Nov 2017 Code(s): K91.89 - OTH POSTPROCEDURAL COMPLICATIONS AND DISORDERS OF DGSTV SYS (8) Hypothyroid Assessment/Plan: Cont Levothyroxine Code(s): E03.9 - HYPOTHYROIDISM, UNSPECIFIED Qualifiers: Hypothyroidism type: unspecified Qualified Code(s): E03.9 - Hypothyroidism , unspecified (9) Mitral valve prolapse Assessment/Plan: No active issue Code(s): I34.1 - NONRHEUMATIC MITRAL (VALVE) PROLAPSE
[2018-02-13] MEDS: QUINAPRIL HCL 10 MG TABLET (FP) PO SCH (11:46)
--- NOTE | 2018-02-13 14:32 | EKG ---
Test Reason : Blood Pressure : / mmHG Vent. Rate : 082 BPM Atrial Rate : 082 BPM P-R Int : 154 ms QRS Dur : 090 ms QT Int : 398 ms P-R-T Axes : 064 017 040 degrees QTc Int : 464 ms NORMAL SINUS RHYTHM INCOMPLETE RIGHT BUNDLE BRANCH BLOCK NONSPECIFIC T WAVE ABNORMALITY ABNORMAL ECG WHEN COMPARED WITH ECG OF 05-NOV-2017 13:39, NO SIGNIFICANT CHANGE WAS FOUND Confirmed by MD Jordan, Rehan ([id number]) on 02/13/2018 2:32:22 PM Referred By: Confirmed By:Rehan Ortega MD
[2018-02-13] MEDS: SODIUM CHLORIDE 1,000 ML IV SCH (15:52)
[2018-02-13] MEDS: SUMAtriptan SUCCINATE 50 MG TABLET PO PRN (21:51)
[2018-02-14] MEDS: LEVOTHYROXINE NA 25 MCG TABLET (FP) PO SCH (06:43)
[2018-02-14 08:00] LABS: BASO % 0.4 % (0-2.0); EOS % 8.9 % (0-4.5); HEMATOCRIT 29.2 % (32.4-45.2); HEMOGLOBIN 9.3 GM/dL (10.7-15.3); LYMPH % 26.4 % (8-40); MCH 27.1 pg (25.7-33.7); MCHC 31.9 g/dl (32.0-36.0); MEAN CELL VOLUME 85.1 fl (80-96); MEAN PLT VOLUME 8.5 fl (7.5-11.1); MONO % 8.3 % (3.8-10.2); PLATELET COUNT 279 K/MM3 (134-434); RBC 3.43 M/mm3 (3.60-5.2); RDW 19.9 % (11.6-15.6); WHITE BLOOD COUNT 5.2 K/mm3 (4.0-10.0)
[2018-02-14] MEDS: morphine SULFATE 4 MG/ML VIAL IVPB PRN (08:01)
[2018-02-14 08:33] LABS: CALCIUM 8.8 mg/dL (8.5-10.1); CHLORIDE 106 mmol/L (98-107); POTASSIUM 3.5 mmol/L (3.5-5.1); SODIUM 145 mmol/L (136-145)
[2018-02-14 08:37] LABS: ANION GAP 8 (8-16); BLOOD UREA NITROGEN 5 mg/dL (7-18); CO2 31 mmol/L (21-32); CREATININE 0.8 mg/dL (0.55-1.02); GLUCOSE,RANDOM 87 mg/dL (74-106)
[2018-02-14] MEDS ORDERED: PT OWN MED DRAWER 7, Y5N ONE ×2 (09:02→21:07)
[2018-02-14] MEDS: SERTRALINE HCL 50 MG TABLET (FP) PO SCH (09:07)
[2018-02-14] MEDS: SUMAtriptan SUCCINATE 50 MG TABLET PO PRN (09:07)
[2018-02-14] MEDS: PANTOPRAZOLE SODIUM 40 MG VIAL IVPUSH SCH (09:08)
[2018-02-14] MEDS: BUDESONIDE/FORMETEROL FUMARATE 160/4.5 mcg INHALER IH SCH ×2 (09:08→21:21)
[2018-02-14] MEDS: QUINAPRIL HCL 10 MG TABLET (FP) PO SCH (09:09)
[2018-02-14] MEDS: PREGABALIN 25 MG CAPSULE PO SCH ×2 (09:09→21:21)
--- NOTE | 2018-02-14 10:03 | PN ---
Progress Note (short form) - Note Progress Note: Dr. Andres/ZACARIAS Andres to document today.
[2018-02-14] MEDS ORDERED: POTASSIUM CHLORIDE TABS 20 MEQ TABLET.ER (FP) PO ONE (10:46)
--- NOTE | 2018-02-14 10:59 | PN ---
Progress Note, Physician Chief Complaint: Pt lying in bed in no acute distress. reports tolerating clears, denies N/V/D. reports she gets iron transfusion weekly with . - Current Medication List Current Medications: Active Medications Albuterol Sulfate (Ventolin 0.083% Nebulizer Soln -) 1 amp NEB Q4H PRN PRN Reason: SHORT OF BREATH/WHEEZING Budesonide/Formoterol Fumarate (Symbicort 160/4.5mcg -) 2 puff IH BID [facility] Last Admin: 02/14/18 09:08 Dose: 2 puff Diltiazem HCl (Cardizem Cd -) 240 mg PO HS [facility] Last Admin: 02/13/18 21:51 Dose: 240 mg Potassium Chloride/Dextrose/Sod Cl (D5-1/2ns+10 Meq Kcl -) 10 meq in 1,000 mls @ 100 mls/hr IV ASDIR [facility] Last Admin: 02/13/18 15:30 Dose: Not Given Levothyroxine Sodium (Synthroid -) 25 mcg PO ACBK [facility] Last Admin: 02/14/18 06:43 Dose: 25 mcg Meclizine HCl (Antivert -) 25 mg PO Q8H PRN PRN Reason: VERTIGO Nitroglycerin (Nitrostat -) 0.4 mg SL PRN PRN PRN Reason: CHEST PAIN Ondansetron HCl (Zofran Injection) 4 mg IVPUSH Q4H PRN PRN Reason: NAUSEA AND/OR VOMITING Last Admin: 02/13/18 23:50 Dose: 4 mg Pantoprazole Sodium (Protonix Iv) 40 mg IVPUSH DAILY [facility] Last Admin: 02/14/18 09:08 Dose: 40 mg Potassium Chloride (K-Dur -) 40 meq PO ONCE ONE Stop: 02/14/18 10:47 Pregabalin (Lyrica -) 25 mg PO BID [facility] Last Admin: 02/14/18 09:09 Dose: 25 mg Quinapril HCl (Accupril -) 10 mg PO DAILY [facility] Last Admin: 02/14/18 09:09 Dose: 10 mg Sertraline HCl (Zoloft -) 100 mg PO DAILY [facility] Last Admin: 02/14/18 09:07 Dose: 100 mg Sumatriptan Succinate (Imitrex -) 100 mg PO DAILY PRN PRN Reason: MIGRANE Last Admin: 02/14/18 09:07 Dose: 100 mg - Objective Vital Signs: Vital Signs Temperature 98.3 F 02/14/18 06:00 Pulse Rate 92 H 02/14/18 06:00 Respiratory Rate 18 02/14/18 06:00 Blood Pressure 135/60 02/14/18 06:00 O2 Sat by Pulse Oximetry (%) 95 02/13/18 21:00 Constitutional: Yes: Well Nourished, No Distress Cardiovascular: Yes: Regular Rate and Rhythm, Murmur (lsb) Respiratory: Yes: WNL, Regular, CTA Bilaterally. No: SOB Gastrointestinal: Yes: WNL, Normal Bowel Sounds, Soft, Abdomen, Obese, Other ( morphine pump palpated in ruq) Edema: Yes Edema: LLE: Trace, RLE: Trace Neurological: Yes: WNL, Alert, Oriented Psychiatric: Yes: WNL, Alert, Oriented Labs: CBC, BMP 02/14/18 06:25 02/14/18 07:00 INR, PTT INR 0.96 (0.82-1.09) 02/12/18 11:30 Problem List - Problems (1) Partial small bowel obstruction Assessment/Plan: improving, conservative management +BS, +BM,+Flatus tolerating clears, advance to fulls today surgery consult appreciated GI following will monitor Code(s): K56.600 - PARTIAL INTESTINAL OBSTRUCTION, UNSPECIFIED TO CAUSE (2) HTN (hypertension) Assessment/Plan: controlled continue cardizem, quinapril Code(s): I10 - ESSENTIAL (PRIMARY) HYPERTENSION Qualifiers: Hypertension type: essential hypertension Qualified Code(s): I10 - Essential (primary) hypertension (3) Hypothyroid Assessment/Plan: tsh wnl continue levothyroxine Code(s): E03.9 - HYPOTHYROIDISM, UNSPECIFIED Qualifiers: Hypothyroidism type: unspecified Qualified Code(s): E03.9 - Hypothyroidism , unspecified (4) Asthma Assessment/Plan: stable, continue current management Code(s): J45.909 - UNSPECIFIED ASTHMA, UNCOMPLICATED (5) Vertigo Assessment/Plan: stable continue meclizine Code(s): R42 - DIZZINESS AND GIDDINESS (6) GERD (gastroesophageal reflux disease) Assessment/Plan: EGD on 12/03/17 revealed gastritis continue protonix Code(s): K21.9 - GASTRO-ESOPHAGEAL REFLUX DISEASE WITHOUT ESOPHAGITIS (7) Anastomotic stricture of small intestine Assessment/Plan: s/p balloon dilation,perianastomotic stricture, 11/2017 Code(s): K91.89 - OTH POSTPROCEDURAL COMPLICATIONS AND DISORDERS OF DGSTV SYS (8) Anemia Assessment/Plan: stable, baseline hg around 10 mild trend down , asymptomatic received outpt iron transfusion weekly hematology consulted to assess inpt transfusion Code(s): D64.9 - ANEMIA, UNSPECIFIED Qualifiers: Anemia type: iron deficiency (9) Chronic bilateral low back pain Assessment/Plan: controlled, followed by neurologist [facility] implanted morphine pump in ruq Code(s): M54.5 - LOW BACK PAIN; G89.29 - OTHER CHRONIC PAIN (10) Chronic pain Assessment/Plan: as above Code(s): G89.29 - OTHER CHRONIC PAIN (11) Hypokalemia Assessment/Plan: K3.6 PO potassium 40meq x 1 monitor bmp Code(s): E87.6 - HYPOKALEMIA
[2018-02-14 11:22] LABS: MAGNESIUM 1.5 mg/dL (1.8-2.4)
[2018-02-14] MEDS ORDERED: MAGNESIUM OXIDE 400 MG TABLET (FP) PO ONE (11:28)
--- NOTE | 2018-02-14 12:07 | PN ---
Progress Note, Physician Chief Complaint: partial SBO History of Present Illness: 77 yo female PMH diverticular disease, chronic abdominal pain, morphine pump, colitis, gastrointestinal bleed, diarrhea presented to the emergency department reporting abdominal pain that started 1 week ago. She has not had and episode of emesis since admission. She has no complaints - Current Medication List Current Medications: Active Medications Albuterol Sulfate (Ventolin 0.083% Nebulizer Soln -) 1 amp NEB Q4H PRN PRN Reason: SHORT OF BREATH/WHEEZING Budesonide/Formoterol Fumarate (Symbicort 160/4.5mcg -) 2 puff IH BID [facility] Last Admin: 02/14/18 09:08 Dose: 2 puff Diltiazem HCl (Cardizem Cd -) 240 mg PO HS [facility] Last Admin: 02/13/18 21:51 Dose: 240 mg Levothyroxine Sodium (Synthroid -) 25 mcg PO ACBK [facility] Last Admin: 02/14/18 06:43 Dose: 25 mcg Meclizine HCl (Antivert -) 25 mg PO Q8H PRN PRN Reason: VERTIGO Nitroglycerin (Nitrostat -) 0.4 mg SL PRN PRN PRN Reason: CHEST PAIN Ondansetron HCl (Zofran Injection) 4 mg IVPUSH Q4H PRN PRN Reason: NAUSEA AND/OR VOMITING Last Admin: 02/13/18 23:50 Dose: 4 mg Pantoprazole Sodium (Protonix -) 40 mg PO DAILY [facility] Pregabalin (Lyrica -) 25 mg PO BID [facility] Last Admin: 02/14/18 09:09 Dose: 25 mg Quinapril HCl (Accupril -) 10 mg PO DAILY [facility] Last Admin: 02/14/18 09:09 Dose: 10 mg Sertraline HCl (Zoloft -) 100 mg PO DAILY [facility] Last Admin: 02/14/18 09:07 Dose: 100 mg Sumatriptan Succinate (Imitrex -) 100 mg PO DAILY PRN PRN Reason: MIGRANE Last Admin: 02/14/18 09:07 Dose: 100 mg - Objective Vital Signs: Vital Signs Temperature 98.3 F 02/14/18 06:00 Pulse Rate 92 H 02/14/18 06:00 Respiratory Rate 18 02/14/18 06:00 Blood Pressure 135/60 02/14/18 06:00 O2 Sat by Pulse Oximetry (%) 95 02/13/18 21:00 Vital Signs Period Temp Pulse Resp BP Sys/Ahn Pulse Ox Last 24 Hr 98.3 F-98.4 F 91-93 118-141/51-60 95 Intake & Output 02/13/18 02/14/18 02/14/18 23:59 07:59 15:59 Intake Total 750 Balance 750 Intake: IV 750 D5-1/2NS+10 MEQ KCL - 10 750 meq In 1,000 ml @ 100 mls /hr IV ASDIR [facility] Rx#: [id number] Other: Voiding Method Bedside Commode # Unmeasured Voids Void 2 1 Bowel Movement Yes: liquid stool No # Bowel Movements 2 Constitutional: Yes: Well Nourished, No Distress, Calm Eyes: Yes: Conjunctiva Clear HENT: Yes: Atraumatic, Normocephalic Neck: Yes: Supple, Trachea Midline Cardiovascular: Yes: Regular Rate and Rhythm, S1, S2 Respiratory: Yes: Regular, CTA Bilaterally Gastrointestinal: Yes: Normal Bowel Sounds, Soft, Abdomen, Obese, Other (RLQ morphine pump,). No: Tenderness, Tenderness, Epigastrium ...Rectal Exam: Yes: Deferred Genitourinary: No: CVA Tenderness - Left, CVA Tenderness - Right Extremities: No: Cool, Cyanosis Wound/Incision: Yes: Clean/Dry, Well Approximated Neurological: Yes: Alert, Oriented Psychiatric: Yes: Alert, Oriented Labs: CBC, BMP 02/14/18 06:25 02/14/18 07:00 INR, PTT INR 0.96 (0.82-1.09) 02/12/18 11:30 - ....Imaging X-ray: Pending Problem List - Problems (1) Partial small bowel obstruction Assessment/Plan: 77yo female MMP with partial SBO, No acute surgical intervention is indicated. Passing BM and flatus now. Persistent SBO pattern on xray NPO and IVF hydration NGT was suggested and refused by patient Adequate analgesia will follow for serial exams Code(s): K56.600 - PARTIAL INTESTINAL OBSTRUCTION, UNSPECIFIED TO CAUSE (2) Anastomotic stricture of small intestine Code(s): K91.89 - OTH POSTPROCEDURAL COMPLICATIONS AND DISORDERS OF DGSTV SYS (3) Anemia Code(s): D64.9 - ANEMIA, UNSPECIFIED Qualifiers: Anemia type: iron deficiency (4) Colonic ulcer Code(s): K63.3 - ULCER OF INTESTINE (5) Community acquired pneumonia Code(s): J18.9 - PNEUMONIA, UNSPECIFIED ORGANISM (6) Diverticulosis Code(s): K57.90 - DVRTCLOS OF INTEST, PART UNSP, W/O PERF OR ABSCESS W/O BLEED (7) Leukopenia Code(s): D72.819 - DECREASED WHITE BLOOD CELL COUNT, UNSPECIFIED (8) Asthma Code(s): J45.909 - UNSPECIFIED ASTHMA, UNCOMPLICATED Qualifiers: Asthma severity: moderate (9) HTN (hypertension) Code(s): I10 - ESSENTIAL (PRIMARY) HYPERTENSION Qualifiers: Hypertension type: essential hypertension Qualified Code(s): I10 - Essential (primary) hypertension (10) Hypothyroid Code(s): E03.9 - HYPOTHYROIDISM, UNSPECIFIED Qualifiers: Hypothyroidism type: unspecified Qualified Code(s): E03.9 - Hypothyroidism , unspecified
[2018-02-14] MEDS: oxyCODONE HCL 5 MG TABLET PO PRN ×2 (14:17→21:21)
--- NOTE | 2018-02-14 23:10 | PN ---
Progress Note (short form) - Note Progress Note: 77 y/o F has been experiencing progressively worsening abdominal pain with diarrhea. This is a pattern that she describes whenever she has had intermittent small bowel obstructions. She has a h/o chronic GI bleeding, pain and narcotic induced constipation with paradoxical diarrhea. She has also had a history of small bowel obstructions as well. She has a morphine pump implanted in her abdominal wall which she says is still active? 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 cervical and lumbar radiculopathy. avascular necrosis of femoral head. 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 Home Medications - Allergies Allergies/Adverse Reactions: Allergies Allergy/AdvReac Type Severity Reaction Status Date / Time metronidazole [From Flagyl] Allergy Intermediate Swelling Verified 02/12/18 10: 58 lactose AdvReac Verified 02/12/18 10:58 fresh fruit Allergy Vomiting Uncoded 02/12/18 10:58 fresh vegetables Allergy Uncoded 02/12/18 10:58 - Home Medications Home Medications: Ambulatory Orders Cholecalciferol (Vitamin D3) [Vitamin D3] 2,000 unit PO DAILY 11/02/16 Diltiazem HCl [Diltiazem 24Hr Cd] 240 mg PO HS 11/02/16 Levothyroxine [Synthroid -] 25 mcg PO DAILY 11/02/16 Montelukast Na [Singulair -] 10 mg PO DAILY 11/02/16 Nitroglycerin [Nitrostat] 0.4 mg SL PRN PRN 11/02/16 Sertraline HCl [Zoloft -] 100 mg PO DAILY 11/02/16 Sumatriptan Succinate [Imitrex -] 100 mg PO PRN 11/02/16 Polyethylene Glycol 3350 [Miralax 119 gm Btl -] 17 gm PO BID bottle 11/10/16 Acetaminophen [Tylenol .Regular Strength -] 650 mg PO Q4H PRN #0 tablet Albuterol 0.083% Nebulizer Iris [Ventolin 0.083% Nebulizer Soln -] 1 amp NEB Q4H PRN #0 amp 12/07/16 Budesonide/Formeterol Fumarate [SYMBICORT 160/4.5mcg -] 2 puff IH BID #1 inhaler 12/07/16 Quinapril HCl [Accupril -] 10 mg PO DAILY #30 tablet 12/07/16 Dicyclomine HCl [Bentyl] 10 mg PO BID PRN 11/05/17 Meclizine HCl [Antivert -] 25 mg PO TID PRN 11/05/17 Ondansetron HCl [Zofran] 8 mg PO BID PRN 11/05/17 Pregabalin [Lyrica] 25 mg PO BID 11/05/17 Potassium Chloride [K-Dur -] 10 meq PO DAILY 12/02/17 Ranitidine HCl 150 mg PO HS 12/02/17 Vitamin E 1,000 unit PO DAILY 12/02/17 Mag Carb/Aluminum Hydrox/Algin [Gaviscon Liquid] 30 ml PO Q6H PRN #355 oz Pantoprazole Sodium [Protonix -] 40 mg PO BID 30 Days #60 tablet.ec 12/03/17 Family Disease History - Family Disease History Family Disease History: CA: Father (lung), Mother (breast) Vital Signs: AFVSS Constitutional: Yes: Calm Cardiovascular: Yes: Regular Rate and Rhythm, Murmur (systolic at the LSB) Respiratory: Yes: CTA Bilaterally Gastrointestinal Inspection: Yes: Scars (multiple surgical scars). ...Palpate: Yes: Soft, Tenderness (TTP mid abdomen, no guarding/rebound) Neurological: Yes: Alert, Oriented Labs/MEds reviewed A/P 77 y/o F has been experiencing progressively worsening abdominal pain with diarrhea. This is a pattern that she describes whenever she has had intermittent small bowel obstructions. She has a h/o chronic GI bleeding, pain and narcotic induced constipation with paradoxical diarrhea. She has also had a history of small bowel obstructions as well. She has a morphine pump implanted in her abdominal wall which she says is still active Clinically improving IRon deficiency anemia -- for venofer infusion 100mg
[2018-02-15] MEDS: oxyCODONE HCL 5 MG TABLET PO PRN ×2 (04:06→19:53)
[2018-02-15] MEDS: LEVOTHYROXINE NA 25 MCG TABLET (FP) PO SCH (06:07)
[2018-02-15 08:02] LABS: BASO % 0.4 % (0-2.0); EOS % 6.2 % (0-4.5); HEMATOCRIT 28.7 % (32.4-45.2); HEMOGLOBIN 9.2 GM/dL (10.7-15.3); LYMPH % 26.2 % (8-40); MCH 27.4 pg (25.7-33.7); MCHC 32.1 g/dl (32.0-36.0); MEAN CELL VOLUME 85.4 fl (80-96); MEAN PLT VOLUME 8.3 fl (7.5-11.1); MONO % 7.6 % (3.8-10.2); NEUT % 59.6 % (42.8-82.8); PLATELET COUNT 282 K/MM3 (134-434); RBC 3.36 M/mm3 (3.60-5.2); RDW 19.8 % (11.6-15.6); WHITE BLOOD COUNT 5.5 K/mm3 (4.0-10.0)
[2018-02-15 08:30] LABS: CHLORIDE 107 mmol/L (98-107); POTASSIUM 3.9 mmol/L (3.5-5.1); SODIUM 145 mmol/L (136-145)
[2018-02-15 08:42] LABS: ANION GAP 6 (8-16); BLOOD UREA NITROGEN 6 mg/dL (7-18); CALCIUM 8.7 mg/dL (8.5-10.1); CO2 32 mmol/L (21-32); CREATININE 0.7 mg/dL (0.55-1.02); GLUCOSE,RANDOM 83 mg/dL (74-106); MAGNESIUM 1.7 mg/dL (1.8-2.4); PHOSPHOROUS 4.4 mg/dL (2.5-4.9)
[2018-02-15] MEDS ORDERED: IRON SUCROSE INJECTION 100 MG in SODIUM CHLORIDE 95 ML IVPB ONE (10:00)
--- NOTE | 2018-02-15 10:18 | PN ---
Progress Note, Physician Chief Complaint: partial SBO History of Present Illness: 77 yo female PMH diverticular disease, chronic abdominal pain, morphine pump, colitis, gastrointestinal bleed, diarrhea presented to the emergency department reporting abdominal pain that started 1 week ago. She has not had and episode of emesis since admission. She has no complaints - Current Medication List Current Medications: Active Medications Albuterol Sulfate (Ventolin 0.083% Nebulizer Soln -) 1 amp NEB Q4H PRN PRN Reason: SHORT OF BREATH/WHEEZING Budesonide/Formoterol Fumarate (Symbicort 160/4.5mcg -) 2 puff IH BID [facility] Last Admin: 02/14/18 21:21 Dose: 2 puff Diltiazem HCl (Cardizem Cd -) 240 mg PO HS [facility] Last Admin: 02/14/18 21:20 Dose: 240 mg Iron Sucrose 100 mg/ Sodium (Chloride) 100 mls @ 200 mls/hr IVPB ONCE ONE Stop: 02/15/18 10:29 Levothyroxine Sodium (Synthroid -) 25 mcg PO ACBK [facility] Last Admin: 02/15/18 06:07 Dose: 25 mcg Meclizine HCl (Antivert -) 25 mg PO Q8H PRN PRN Reason: VERTIGO Nitroglycerin (Nitrostat -) 0.4 mg SL PRN PRN PRN Reason: CHEST PAIN Ondansetron HCl (Zofran Injection) 4 mg IVPUSH Q4H PRN PRN Reason: NAUSEA AND/OR VOMITING Last Admin: 02/13/18 23:50 Dose: 4 mg Oxycodone HCl (Roxicodone -) 5 mg PO Q6H PRN PRN Reason: PAIN LEVEL 6-10 Last Admin: 02/15/18 04:06 Dose: 5 mg Pantoprazole Sodium (Protonix -) 40 mg PO DAILY [facility] Pregabalin (Lyrica -) 25 mg PO BID [facility] Last Admin: 02/14/18 21:21 Dose: 25 mg Quinapril HCl (Accupril -) 10 mg PO DAILY [facility] Last Admin: 02/14/18 09:09 Dose: 10 mg Sertraline HCl (Zoloft -) 100 mg PO DAILY [facility] Last Admin: 02/14/18 09:07 Dose: 100 mg Sumatriptan Succinate (Imitrex -) 100 mg PO DAILY PRN PRN Reason: MIGRANE Last Admin: 02/14/18 09:07 Dose: 100 mg - Objective Vital Signs: Vital Signs Temperature 98.1 F 02/15/18 06:00 Pulse Rate 83 02/15/18 06:00 Respiratory Rate 18 02/15/18 06:00 Blood Pressure 112/58 02/15/18 06:00 O2 Sat by Pulse Oximetry (%) 96 02/14/18 22:00 Vital Signs Period Temp Pulse Resp BP Sys/Ahn Pulse Ox Last 24 Hr 98.1 F-98.4 F 78-86 18-20 111-125/51-64 96 Intake & Output 02/14/18 02/15/18 02/15/18 23:59 07:59 15:59 Other: Voiding Method Bedside Commode # Unmeasured Voids Void 1 Constitutional: Yes: No Distress, Calm, Obese Eyes: Yes: Conjunctiva Clear, EOM Intact HENT: Yes: Atraumatic, Normocephalic Neck: Yes: Supple, Trachea Midline Cardiovascular: Yes: Regular Rate and Rhythm, S1, S2 Respiratory: Yes: Regular, CTA Bilaterally Gastrointestinal: Yes: Normal Bowel Sounds, Soft, Abdomen, Obese. No: Distention, Tenderness Genitourinary: No: CVA Tenderness - Left, CVA Tenderness - Right Extremities: No: Cool, Cyanosis Neurological: Yes: Alert, Oriented Psychiatric: Yes: Alert, Oriented Labs: CBC, BMP 02/15/18 07:00 02/15/18 07:30 INR, PTT INR 0.96 (0.82-1.09) 02/12/18 11:30 Problem List - Problems (1) Partial small bowel obstruction Assessment/Plan: 77yo female MMP with partial SBO, No acute surgical intervention is indicated. Passing BM and flatus now. Persistent SBO pattern on xray NPO and IVF hydration NGT was suggested and refused by patient Adequate analgesia will follow for serial exams Code(s): K56.600 - PARTIAL INTESTINAL OBSTRUCTION, UNSPECIFIED TO CAUSE (2) Anastomotic stricture of small intestine Code(s): K91.89 - OTH POSTPROCEDURAL COMPLICATIONS AND DISORDERS OF DGSTV SYS (3) Anemia Code(s): D64.9 - ANEMIA, UNSPECIFIED Qualifiers: Anemia type: iron deficiency (4) Colonic ulcer Code(s): K63.3 - ULCER OF INTESTINE (5) Community acquired pneumonia Code(s): J18.9 - PNEUMONIA, UNSPECIFIED ORGANISM (6) Diverticulosis Code(s): K57.90 - DVRTCLOS OF INTEST, PART UNSP, W/O PERF OR ABSCESS W/O BLEED (7) Leukopenia Code(s): D72.819 - DECREASED WHITE BLOOD CELL COUNT, UNSPECIFIED (8) Asthma Code(s): J45.909 - UNSPECIFIED ASTHMA, UNCOMPLICATED Qualifiers: Asthma severity: moderate (9) HTN (hypertension) Code(s): I10 - ESSENTIAL (PRIMARY) HYPERTENSION Qualifiers: Hypertension type: essential hypertension Qualified Code(s): I10 - Essential (primary) hypertension (10) Hypothyroid Code(s): E03.9 - HYPOTHYROIDISM, UNSPECIFIED Qualifiers: Hypothyroidism type: unspecified Qualified Code(s): E03.9 - Hypothyroidism , unspecified
[2018-02-15] MEDS ORDERED: PT OWN MED DRAWER 7, Y5N ONE ×2 (11:08→21:46)
[2018-02-15] MEDS: BUDESONIDE/FORMETEROL FUMARATE 160/4.5 mcg INHALER IH SCH ×2 (11:11→21:49)
[2018-02-15] MEDS: PANTOPRAZOLE 40 MG TABLET (FP) PO SCH (11:12)
[2018-02-15] MEDS: PREGABALIN 25 MG CAPSULE PO SCH ×2 (11:12→21:49)
[2018-02-15] MEDS: SERTRALINE HCL 50 MG TABLET (FP) PO SCH (11:12)
[2018-02-15] MEDS: QUINAPRIL HCL 10 MG TABLET (FP) PO SCH (11:13)
--- NOTE | 2018-02-15 12:48 | PN ---
Progress Note, Physician Chief Complaint: Pt lying in bed in no acute distress. reports tolerating full liquids, denies N/ V/D. - Current Medication List Current Medications: Active Medications Albuterol Sulfate (Ventolin 0.083% Nebulizer Soln -) 1 amp NEB Q4H PRN PRN Reason: SHORT OF BREATH/WHEEZING Budesonide/Formoterol Fumarate (Symbicort 160/4.5mcg -) 2 puff IH BID [facility] Last Admin: 02/15/18 11:11 Dose: 2 puff Diltiazem HCl (Cardizem Cd -) 240 mg PO HS [facility] Last Admin: 02/14/18 21:20 Dose: 240 mg Levothyroxine Sodium (Synthroid -) 25 mcg PO ACBK [facility] Last Admin: 02/15/18 06:07 Dose: 25 mcg Meclizine HCl (Antivert -) 25 mg PO Q8H PRN PRN Reason: VERTIGO Nitroglycerin (Nitrostat -) 0.4 mg SL PRN PRN PRN Reason: CHEST PAIN Ondansetron HCl (Zofran Injection) 4 mg IVPUSH Q4H PRN PRN Reason: NAUSEA AND/OR VOMITING Last Admin: 02/13/18 23:50 Dose: 4 mg Oxycodone HCl (Roxicodone -) 5 mg PO Q6H PRN PRN Reason: PAIN LEVEL 6-10 Last Admin: 02/15/18 04:06 Dose: 5 mg Pantoprazole Sodium (Protonix -) 40 mg PO DAILY [facility] Last Admin: 02/15/18 11:12 Dose: 40 mg Pregabalin (Lyrica -) 25 mg PO BID [facility] Last Admin: 02/15/18 11:12 Dose: 25 mg Quinapril HCl (Accupril -) 10 mg PO DAILY [facility] Last Admin: 02/15/18 11:13 Dose: 10 mg Sertraline HCl (Zoloft -) 100 mg PO DAILY [facility] Last Admin: 02/15/18 11:12 Dose: 100 mg Sumatriptan Succinate (Imitrex -) 100 mg PO DAILY PRN PRN Reason: MIGRANE Last Admin: 02/14/18 09:07 Dose: 100 mg - Objective Vital Signs: Vital Signs Temperature 98.1 F 02/15/18 06:00 Pulse Rate 83 02/15/18 06:00 Respiratory Rate 18 05/08/18 06:00 Blood Pressure 112/58 02/15/18 06:00 O2 Sat by Pulse Oximetry (%) 96 02/14/18 22:00 Constitutional: Yes: Well Nourished, No Distress Cardiovascular: Yes: Regular Rate and Rhythm, Murmur (lsb) Respiratory: Yes: WNL, Regular, CTA Bilaterally. No: Accessory Muscle Use, SOB , Tachypnea Gastrointestinal: Yes: WNL, Normal Bowel Sounds, Soft, Abdomen, Obese. No: Distention, Tenderness Genitourinary: Yes: WNL Edema: No Neurological: Yes: WNL, Alert, Oriented Psychiatric: Yes: WNL, Alert, Oriented Labs: CBC, BMP 02/15/18 07:00 02/15/18 07:30 INR, PTT INR 0.96 (0.82-1.09) 02/12/18 11:30 - ....Imaging X-ray: Report Reviewed Problem List - Problems (1) Partial small bowel obstruction Code(s): K56.600 - PARTIAL INTESTINAL OBSTRUCTION, UNSPECIFIED TO CAUSE (2) HTN (hypertension) Code(s): I10 - ESSENTIAL (PRIMARY) HYPERTENSION Qualifiers: Hypertension type: essential hypertension Qualified Code(s): I10 - Essential (primary) hypertension (3) Hypothyroid Code(s): E03.9 - HYPOTHYROIDISM, UNSPECIFIED Qualifiers: Hypothyroidism type: unspecified Qualified Code(s): E03.9 - Hypothyroidism , unspecified (4) Asthma Code(s): J45.909 - UNSPECIFIED ASTHMA, UNCOMPLICATED (5) Vertigo Code(s): R42 - DIZZINESS AND GIDDINESS (6) GERD (gastroesophageal reflux disease) Code(s): K21.9 - GASTRO-ESOPHAGEAL REFLUX DISEASE WITHOUT ESOPHAGITIS (7) Anastomotic stricture of small intestine Code(s): K91.89 - OTH POSTPROCEDURAL COMPLICATIONS AND DISORDERS OF DGSTV SYS (8) Anemia Code(s): D64.9 - ANEMIA, UNSPECIFIED Qualifiers: Anemia type: iron deficiency (9) Chronic bilateral low back pain Code(s): M54.5 - LOW BACK PAIN; G89.29 - OTHER CHRONIC PAIN (10) Chronic pain Code(s): G89.29 - OTHER CHRONIC PAIN (11) Hypokalemia Code(s): E87.6 - HYPOKALEMIA Assessment/Plan (1) Partial small bowel obstruction Assessment/Plan: improving, conservative management +BS, +BM,+Flatus tolerating fulls, advance to regular food today surgery consult appreciated GI following will monitor Code(s): K56.600 - PARTIAL INTESTINAL OBSTRUCTION, UNSPECIFIED TO CAUSE (2) HTN (hypertension) Assessment/Plan: controlled continue cardizem, quinapril Code(s): I10 - ESSENTIAL (PRIMARY) HYPERTENSION Qualifiers: Hypertension type: essential hypertension Qualified Code(s): I10 - Essential (primary) hypertension (3) Hypothyroid Assessment/Plan: tsh wnl continue levothyroxine Code(s): E03.9 - HYPOTHYROIDISM, UNSPECIFIED Qualifiers: Hypothyroidism type: unspecified Qualified Code(s): E03.9 - Hypothyroidism , unspecified (4) Asthma Assessment/Plan: stable, continue current management Code(s): J45.909 - UNSPECIFIED ASTHMA, UNCOMPLICATED (5) Vertigo Assessment/Plan: stable continue meclizine Code(s): R42 - DIZZINESS AND GIDDINESS (6) GERD (gastroesophageal reflux disease) Assessment/Plan: EGD on 12/03/17 revealed gastritis continue protonix Code(s): K21.9 - GASTRO-ESOPHAGEAL REFLUX DISEASE WITHOUT ESOPHAGITIS (7) Anastomotic stricture of small intestine Assessment/Plan: s/p balloon dilation,perianastomotic stricture, 11/2017 Code(s): K91.89 - OTH POSTPROCEDURAL COMPLICATIONS AND DISORDERS OF DGSTV SYS (8) Anemia Assessment/Plan: stable, baseline hg around 10 mild trend down , asymptomatic iron transfusion today hematology following Code(s): D64.9 - ANEMIA, UNSPECIFIED Qualifiers: Anemia type: iron deficiency (9) Chronic bilateral low back pain Assessment/Plan: controlled, followed by neurologist [facility] [place] implanted morphine pump in ruq, active Code(s): M54.5 - LOW BACK PAIN; G89.29 - OTHER CHRONIC PAIN (10) Chronic pain Assessment/Plan: as above Code(s): G89.29 - OTHER CHRONIC PAIN (11) Hypokalemia Assessment/Plan: K3.9 PO potassium 20meq x 1 monitor bmp Code(s): E87.6 - HYPOKALEMIA Dispo: Home tomorrow am if tolerating regular diet
[2018-02-15] MEDS ORDERED: MAGNESIUM OXIDE 400 MG TABLET (FP) PO ONE (13:15)
[2018-02-15] MEDS ORDERED: POTASSIUM CHLORIDE TABS 20 MEQ TABLET.ER (FP) PO ONE (13:15)
--- NOTE | 2018-02-15 21:14 | PN ---
GI Progress Note Subjective: GI Note: FUA reveals no obstruction. Tolerating solids. No nausea or vomiting, Pain free - Objective Vital Signs: Vital Signs Temperature 98.7 F 02/15/18 14:00 Pulse Rate 82 02/15/18 14:00 Respiratory Rate 20 02/15/18 14:00 Blood Pressure 131/46 02/15/18 14:00 O2 Sat by Pulse Oximetry (%) 96 02/15/18 09:00 CBC,CMP WBC 5.5 K/mm3 (4.0-10.0) 02/15/18 07:00 RBC 3.36 M/mm3 (3.60-5.2) L 02/15/18 07:00 Hgb 9.2 GM/dL (10.7-15.3) L 02/15/18 07:00 Hct 28.7 % (32.4-45.2) L 02/15/18 07:00 MCV 85.4 fl (80-96) 02/15/18 07:00 MCH 27.4 pg (25.7-33.7) 02/15/18 07:00 MCHC 32.1 g/dl (32.0-36.0) 02/15/18 07:00 RDW 19.8 % (11.6-15.6) H 02/15/18 07:00 Plt Count 282 K/MM3 (134-434) 02/15/18 07:00 MPV 8.3 fl (7.5-11.1) 02/15/18 07:00 Neutrophils % 59.6 % (42.8-82.8) 02/15/18 07:00 Lymphocytes % 26.2 % (8-40) 02/15/18 07:00 Monocytes % 7.6 % (3.8-10.2) 02/15/18 07:00 Eosinophils % 6.2 % (0-4.5) H 02/15/18 07:00 Basophils % 0.4 % (0-2.0) 02/15/18 07:00 Sodium 145 mmol/L (136-145) 02/15/18 07:30 Potassium 3.9 mmol/L (3.5-5.1) 02/15/18 07:30 Chloride 107 mmol/L (98-107) 02/15/18 07:30 Carbon Dioxide 32 mmol/L (21-32) 02/15/18 07:30 Anion Gap 6 (8-16) L 02/15/18 07:30 BUN 6 mg/dL (7-18) L 02/15/18 07:30 Creatinine 0.7 mg/dL (0.55-1.02) 02/15/18 07:30 Creat Clearance w eGFR > 60 (>60) 02/13/18 07:00 Random Glucose 83 mg/dL (74-106) 02/15/18 07:30 Hemoglobin A1c % 5.7 % (4.8-6.0) 02/13/18 07:00 Calcium 8.7 mg/dL (8.5-10.1) 02/15/18 07:30 Phosphorus 4.4 mg/dL (2.5-4.9) 02/15/18 07:30 Magnesium 1.7 mg/dL (1.8-2.4) L 02/15/18 07:30 Ferritin 19.050 ng/ml (6.9-282.5) 02/15/18 07:30 Total Bilirubin 0.3 mg/dL (0.2-1.0) 02/13/18 07:00 AST 8 U/L (15-37) L 02/13/18 07:00 ALT 8 U/L (12-78) L 02/13/18 07:00 Alkaline Phosphatase 85 U/L (45-117) 02/13/18 07:00 Troponin I < 0.02 ng/ml (0.00-0.05) 02/12/18 11:35 Total Protein 5.2 g/dl (6.4-8.2) L 02/13/18 07:00 Albumin 2.6 g/dl (3.4-5.0) L 02/13/18 07:00 Lipase 52 U/L (73-393) L 02/12/18 11:30 TSH 1.23 uIU/ml (0.358-3.74) 02/13/18 07:00 Current Medications Generic Name Dose Route Start Last Admin Trade Name Freq PRN Reason Stop Dose Admin Albuterol Sulfate 1 amp 02/12/18 15:15 Ventolin 0.083% Nebulizer Soln - NEB Q4H PRN SHORT OF BREATH/WHEEZING Budesonide/Formoterol Fumarate 2 puff 02/12/18 22:00 02/15/18 11:11 Symbicort 160/4.5mcg - IH 2 puff BID TANA Administration Diltiazem HCl 240 mg 02/12/18 22:00 02/14/18 21:20 Cardizem Cd - PO 240 mg HS TANA Administration Levothyroxine Sodium 25 mcg 02/13/18 07:00 02/15/18 06:07 Synthroid - PO 25 mcg ACBK TANA Administration Meclizine HCl 25 mg 02/12/18 23:22 Antivert - PO Q8H PRN VERTIGO Nitroglycerin 0.4 mg 02/12/18 15:18 Nitrostat - SL PRN PRN CHEST PAIN Ondansetron HCl 4 mg 02/12/18 23:22 02/13/18 23:50 Zofran Injection IVPUSH 4 mg Q4H PRN Administration NAUSEA AND/OR VOMITING Oxycodone HCl 5 mg 02/14/18 13:57 02/15/18 19:53 Roxicodone - PO 5 mg Q6H PRN Administration PAIN LEVEL 6-10 Pantoprazole Sodium 40 mg 02/15/18 10:00 02/15/18 11:12 Protonix - PO 40 mg DAILY TANA Administration Pregabalin 25 mg 02/12/18 22:00 02/15/18 11:12 Lyrica - PO 25 mg BID TANA Administration Quinapril HCl 10 mg 02/13/18 10:00 02/15/18 11:13 Accupril - PO 10 mg DAILY TANA Administration Sertraline HCl 100 mg 02/13/18 10:00 02/15/18 11:12 Zoloft - PO 100 mg DAILY TANA Administration Sumatriptan Succinate 100 mg 02/12/18 15:26 02/14/18 09:07 Imitrex - PO 100 mg DAILY PRN Administration MIGRANE Constitutional: No Distress ...Auscultate: Yes: Normoactive Bowel Sounds ...Palpate: Yes: Soft, Other (nontender) Labs: CBC, BMP 02/15/18 07:00 02/15/18 07:30 INR, PTT INR 0.96 (0.82-1.09) 02/12/18 11:30 Assessment/Plan Resolved SBO due to adhesions vs narcotic bowel resolved. No GI objections to discharge. If problems persist may need to resume [employer].
[2018-02-16] MEDS: LEVOTHYROXINE NA 25 MCG TABLET (FP) PO SCH (06:07)
[2018-02-16 08:08] LABS: SERUM IRON SATURATION 8 % (15-55); TOTAL IRON BINDING CAPACITY 288 ug/dL (250-450); UIBC 265 ug/dL (118-369)
--- NOTE | 2018-02-16 08:49 | PN ---
Progress Note (short form) - Note Progress Note: /ZACARIAS Andres to document today Had IV Iron; + stool guaiac ; Probable for D/C
[2018-02-16 09:09] LABS: BASO % 0.3 % (0-2.0); EOS % 5.1 % (0-4.5); HEMATOCRIT 29.9 % (32.4-45.2); HEMOGLOBIN 9.5 GM/dL (10.7-15.3); LYMPH % 28.3 % (8-40); MCHC 31.7 g/dl (32.0-36.0); MEAN CELL VOLUME 85.2 fl (80-96); MEAN PLT VOLUME 8.7 fl (7.5-11.1); MONO % 7.4 % (3.8-10.2); NEUT % 58.9 % (42.8-82.8); PLATELET COUNT 298 K/MM3 (134-434); RBC 3.51 M/mm3 (3.60-5.2); RDW 20.3 % (11.6-15.6); WHITE BLOOD COUNT 5.4 K/mm3 (4.0-10.0)
--- NOTE | 2018-02-16 09:18 | PN ---
Progress Note, Physician Chief Complaint: partial SBO History of Present Illness: 77 yo female PMH diverticular disease, chronic abdominal pain, morphine pump, colitis, gastrointestinal bleed, diarrhea presented to the emergency department reporting abdominal pain that started 1 week ago. She has not had and episode of emesis since admission. She has no complaints, tolerating diet some liquid stool (baseline), being discharged home today - Current Medication List Current Medications: Active Medications Albuterol Sulfate (Ventolin 0.083% Nebulizer Soln -) 1 amp NEB Q4H PRN PRN Reason: SHORT OF BREATH/WHEEZING Budesonide/Formoterol Fumarate (Symbicort 160/4.5mcg -) 2 puff IH BID [facility] Last Admin: 02/15/18 21:49 Dose: 2 puff Diltiazem HCl (Cardizem Cd -) 240 mg PO HS [facility] Last Admin: 02/15/18 21:49 Dose: 240 mg Levothyroxine Sodium (Synthroid -) 25 mcg PO ACBK [facility] Last Admin: 02/16/18 06:07 Dose: 25 mcg Meclizine HCl (Antivert -) 25 mg PO Q8H PRN PRN Reason: VERTIGO Nitroglycerin (Nitrostat -) 0.4 mg SL PRN PRN PRN Reason: CHEST PAIN Ondansetron HCl (Zofran Injection) 4 mg IVPUSH Q4H PRN PRN Reason: NAUSEA AND/OR VOMITING Last Admin: 02/13/18 23:50 Dose: 4 mg Oxycodone HCl (Roxicodone -) 5 mg PO Q6H PRN PRN Reason: PAIN LEVEL 6-10 Last Admin: 02/15/18 19:53 Dose: 5 mg Pantoprazole Sodium (Protonix -) 40 mg PO DAILY [facility] Last Admin: 02/15/18 11:12 Dose: 40 mg Pregabalin (Lyrica -) 25 mg PO BID [facility] Last Admin: 02/15/18 21:49 Dose: 25 mg Quinapril HCl (Accupril -) 10 mg PO DAILY [facility] Last Admin: 02/15/18 11:13 Dose: 10 mg Sertraline HCl (Zoloft -) 100 mg PO DAILY [facility] Last Admin: 02/15/18 11:12 Dose: 100 mg Sumatriptan Succinate (Imitrex -) 100 mg PO DAILY PRN PRN Reason: MIGRANE Last Admin: 02/14/18 09:07 Dose: 100 mg - Objective Vital Signs: Vital Signs Temperature 98.1 F 02/16/18 05:40 Pulse Rate 82 02/16/18 05:40 Respiratory Rate 20 02/16/18 05:40 Blood Pressure 120/54 02/16/18 05:40 O2 Sat by Pulse Oximetry (%) 96 02/15/18 22:00 Constitutional: Yes: No Distress, Calm, Obese Eyes: Yes: Conjunctiva Clear, EOM Intact HENT: Yes: Atraumatic, Normocephalic Neck: Yes: Supple, Trachea Midline Cardiovascular: Yes: Regular Rate and Rhythm, S1, S2 Respiratory: Yes: Regular, CTA Bilaterally Gastrointestinal: Yes: Normal Bowel Sounds, Soft, Abdomen, Obese. No: Distention, Tenderness ...Rectal Exam: Yes: Deferred Genitourinary: No: CVA Tenderness - Left, CVA Tenderness - Right Extremities: No: Cool, Cyanosis Edema: No Peripheral Pulses WNL: Yes Peripheral Pulses: Left Doralis Pedis: 2+, Right Dorsalis Pedis: 2+ Neurological: Yes: Alert, Oriented Psychiatric: Yes: Alert, Oriented Labs: CBC, BMP 02/16/18 07:45 INR, PTT INR 0.96 (0.82-1.09) 02/12/18 11:30 Problem List - Problems (1) Partial small bowel obstruction Assessment/Plan: 77yo female MMP with partial SBO, No acute surgical intervention is indicated. Passing BM and flatus now. Persistent SBO pattern on xray NPO and IVF hydration NGT was suggested and refused by patient Adequate analgesia will follow for serial exams Code(s): K56.600 - PARTIAL INTESTINAL OBSTRUCTION, UNSPECIFIED TO CAUSE (2) Anastomotic stricture of small intestine Code(s): K91.89 - OTH POSTPROCEDURAL COMPLICATIONS AND DISORDERS OF DGSTV SYS (3) Anemia Code(s): D64.9 - ANEMIA, UNSPECIFIED Qualifiers: Anemia type: iron deficiency (4) Colonic ulcer Code(s): K63.3 - ULCER OF INTESTINE (5) Community acquired pneumonia Code(s): J18.9 - PNEUMONIA, UNSPECIFIED ORGANISM (6) Diverticulosis Code(s): K57.90 - DVRTCLOS OF INTEST, PART UNSP, W/O PERF OR ABSCESS W/O BLEED (7) Leukopenia Code(s): D72.819 - DECREASED WHITE BLOOD CELL COUNT, UNSPECIFIED (8) Asthma Code(s): J45.909 - UNSPECIFIED ASTHMA, UNCOMPLICATED Qualifiers: Asthma severity: moderate (9) HTN (hypertension) Code(s): I10 - ESSENTIAL (PRIMARY) HYPERTENSION Qualifiers: Hypertension type: essential hypertension Qualified Code(s): I10 - Essential (primary) hypertension (10) Hypothyroid Code(s): E03.9 - HYPOTHYROIDISM, UNSPECIFIED Qualifiers: Hypothyroidism type: unspecified Qualified Code(s): E03.9 - Hypothyroidism , unspecified
[2018-02-16] MEDS ORDERED: PT OWN MED DRAWER 7, Y5N ONE ×2 (09:43→11:27)
[2018-02-16] MEDS: SERTRALINE HCL 50 MG TABLET (FP) PO SCH (09:51)
[2018-02-16] MEDS: PANTOPRAZOLE 40 MG TABLET (FP) PO SCH (09:51)
[2018-02-16] MEDS: PREGABALIN 25 MG CAPSULE PO SCH (09:52)
[2018-02-16] MEDS: QUINAPRIL HCL 10 MG TABLET (FP) PO SCH (09:52)
[2018-02-16] MEDS: BUDESONIDE/FORMETEROL FUMARATE 160/4.5 mcg INHALER IH SCH (09:52)
[2018-02-16] MEDS: SUMAtriptan SUCCINATE 50 MG TABLET PO PRN (09:57)
[2018-02-16 10:36] VITALS: PULSE 89; TEMP 98.8
[2018-02-16 10:41] VITALS: BP 121/61
--- NOTE | 2018-02-16 10:42 | DS ---
Physical Examination Vital Signs: Vital Signs Temperature 98.8 F 02/16/18 09:00 Pulse Rate 89 02/16/18 10:41 Respiratory Rate 20 02/16/18 10:41 Blood Pressure 121/61 02/16/18 10:41 O2 Sat by Pulse Oximetry (%) 96 02/15/18 22:00 Constitutional: Yes: Well Nourished, No Distress, Calm Cardiovascular: Yes: Regular Rate and Rhythm, Murmur. No: Tachycardia Gastrointestinal: Yes: WNL, Normal Bowel Sounds, Soft, Abdomen, Obese. No: Distention, Tenderness Renal/: Yes: WNL Extremities: Yes: WNL Edema: No Neurological: Yes: WNL, Alert, Oriented Psychiatric: Yes: WNL, Alert, Oriented Labs: CBC, BMP 02/16/18 07:45 Discharge Summary Reason For Visit: PARTIAL BOWEL OBSTRUCTION Current Active Problems Asthma (Acute) Chronic bilateral low back pain (Acute) Partial small bowel obstruction (Acute) UTI (urinary tract infection) (Acute) Vertigo (Acute) Hospital Course: is a pleasant 77 year old female who was admitted with pSBO. Conservative managed. GI/surgery consult appreciated. She is tolerating regular diet without any nausea/vomiting. Has +bs,+flatus,+bm. Abd xray shows resolution of obstruction. Hx of multiple abdominal surgeries in the past, could be related to adhesions or narcotic induced. Pt had mild diarrhea, cdiff neg. She also received iron transfusion by hematology for her chronic anemia. Otherwise, pt doing well today, medically cleared for discharge from hospital. f /u as directed Condition: Good - Instructions Diet, Activity, Other Instructions: resume prev meds, activity regular diet as tolerated f/u as directed Referrals: Jong Rodgers MD [Primary Care Provider] - 1 Week Savannah Stewart MD [Staff Physician] - 2 Weeks (as needed) Carrillo Esposito MD [Staff Physician] - 1 Week Disposition: HOME - Home Medications Comprehensive Discharge Medication List: Ambulatory Orders Cholecalciferol (Vitamin D3) [Vitamin D3] 2,000 unit PO DAILY 11/02/16 Diltiazem HCl [Diltiazem 24Hr Cd] 240 mg PO HS 11/02/16 Levothyroxine [Synthroid -] 25 mcg PO DAILY 11/02/16 Montelukast Na [Singulair -] 10 mg PO DAILY 11/02/16 Nitroglycerin [Nitrostat] 0.4 mg SL PRN PRN 11/02/16 Sertraline HCl [Zoloft -] 100 mg PO DAILY 11/02/16 Sumatriptan Succinate [Imitrex -] 100 mg PO PRN 11/02/16 Polyethylene Glycol 3350 [Miralax 119 gm Btl -] 17 gm PO BID bottle 11/10/16 Acetaminophen [Tylenol .Regular Strength -] 650 mg PO Q4H PRN #0 tablet Albuterol 0.083% Nebulizer Iris [Ventolin 0.083% Nebulizer Soln -] 1 amp NEB Q4H PRN #0 amp 12/07/16 Budesonide/Formeterol Fumarate [SYMBICORT 160/4.5mcg -] 2 puff IH BID #1 inhaler 12/07/16 Quinapril HCl [Accupril -] 10 mg PO DAILY #30 tablet 12/07/16 Dicyclomine HCl [Bentyl] 10 mg PO BID PRN 11/05/17 Meclizine HCl [Antivert -] 25 mg PO TID PRN 11/05/17 Ondansetron HCl [Zofran] 8 mg PO BID PRN 11/05/17 Pregabalin [Lyrica] 25 mg PO BID 11/05/17 Potassium Chloride [K-Dur -] 10 meq PO DAILY 12/02/17 Ranitidine HCl 150 mg PO HS 12/02/17 Vitamin E 1,000 unit PO DAILY 12/02/17 Mag Carb/Aluminum Hydrox/Algin [Gaviscon Liquid] 30 ml PO Q6H PRN #355 oz Pantoprazole Sodium [Protonix -] 40 mg PO BID 30 Days #60 tablet.ec 12/03/17 Dicyclomine HCl 10 mg PO BID #60 capsule 02/16/18
[2018-02-17 11:56] LABS: ANION GAP 6 (8-16); BLOOD UREA NITROGEN 7 mg/dL (7-18); CALCIUM 8.3 mg/dL (8.5-10.1); CHLORIDE 105 mmol/L (98-107); CO2 33 mmol/L (21-32); CREATININE 0.8 mg/dL (0.55-1.02); GLUCOSE,RANDOM 82 mg/dL (74-106); MAGNESIUM 1.9 mg/dL (1.8-2.4); POTASSIUM 3.8 mmol/L (3.5-5.1); SODIUM 144 mmol/L (136-145)
== END 2018-02-16 14:50 | disposition home or self-care (01) | DRG 389 ==
LOC: JER 10:54 → JERBED 15:14 → J6S 18:26
PROVIDERS: ADMIT Internal Medicine; ATTEND Internal Medicine
DX: K56.600 Partial intestinal obstruction, unspecified as to cause (principal); N39.0 Urinary tract infection, site not specified; I10 Essential (primary) hypertension; K21.9 Gastro-esophageal reflux disease without esophagitis; E53.8 Deficiency of other specified B group vitamins; J45.909 Unspecified asthma, uncomplicated; R42 Dizziness and giddiness; I34.1 Nonrheumatic mitral (valve) prolapse; E03.9 Hypothyroidism, unspecified; M54.5 Low back pain; E87.6 Hypokalemia; G89.29 Other chronic pain; D50.9 Iron deficiency anemia, unspecified
CPT/HCPCS: 36415; 71045-TC-FY; 74019-TC-FY; 74177-TC; 80048; 80053; 81003; 81015; 82272; 82728; 83036; 83540; 83550; 83690; 83735; 84100; 84443; 84484; 85025; 85610; 85730; 86850; 86900; 86901; 87324; 87449; 93005; 93010; 97116-GP; 97161-GP; 99285-25; J1756; J7030

== ENCOUNTER 2018-02-25 07:09 | Day surgery (SDC) | payer OTHER ==
[~2018-02-25 07:09] MED LIST: IRON SUCROSE INJECTION 100 MG in SODIUM CHLORIDE 100 ML IVPB ONE
[2018-02-25] MEDS ORDERED: IRON SUCROSE INJECTION 100 MG in SODIUM CHLORIDE 100 ML IVPB ONE (11:00)
[2018-02-25 13:19] VITALS: TEMP 98.1
[2018-02-25 15:56] VITALS: BP 121/48; PULSE 86
== END 2018-02-25 14:10 | disposition home or self-care (01) ==
LOC: JONCNONCHE 07:09 → J7W 13:17 → JONCNONCHE 14:10
PROVIDERS: ATTEND Internal Medicine Hematology & Oncology
PROC: 3E033GC Introduction of Other Therapeutic Substance into Peripheral Vein, Percutaneous Approach (ICD-10-PCS; principal; 2018-02-25)
DX: D50.9 Iron deficiency anemia, unspecified (principal)
CPT/HCPCS: J1756

== ENCOUNTER 2018-03-04 07:33 | Day surgery (SDC) | payer OTHER ==
[2018-03-04] MEDS ORDERED: IRON SUCROSE INJECTION 100 MG in SODIUM CHLORIDE 100 ML IVPB ONE (13:00)
[2018-03-04 17:35] VITALS: TEMP 97.9
[2018-03-04 17:38] VITALS: BP 123/64; PULSE 94
== END 2018-03-04 14:15 | disposition home or self-care (01) ==
LOC: JONCNONCHE 07:33 → J7W 12:41 → JONCNONCHE 14:15
PROVIDERS: ATTEND Internal Medicine Hematology & Oncology
PROC: 3E033GC Introduction of Other Therapeutic Substance into Peripheral Vein, Percutaneous Approach (ICD-10-PCS; principal; 2018-03-04)
DX: D50.9 Iron deficiency anemia, unspecified (principal)
CPT/HCPCS: 96365; J1756

== ENCOUNTER 2018-03-11 07:31 | Day surgery (SDC) | payer OTHER ==
[2018-03-11] MEDS ORDERED: IRON SUCROSE INJECTION 100 MG in SODIUM CHLORIDE 100 ML IVPB ONE (13:00)
[2018-03-11 17:48] VITALS: BP 102/58; PULSE 89; TEMP 98.2
== END 2018-03-11 14:15 | disposition home or self-care (01) ==
LOC: JONCNONCHE 07:31 → J7W 12:41 → JONCNONCHE 14:15
PROVIDERS: ATTEND Internal Medicine Hematology & Oncology
PROC: 3E033GC Introduction of Other Therapeutic Substance into Peripheral Vein, Percutaneous Approach (ICD-10-PCS; principal; 2018-03-11)
DX: D50.9 Iron deficiency anemia, unspecified (principal)
CPT/HCPCS: 96365; J1756

== ENCOUNTER 2018-03-18 07:31 | Day surgery (SDC) | payer OTHER ==
[2018-03-18] MEDS ORDERED: IRON SUCROSE INJECTION 100 MG in SODIUM CHLORIDE 100 ML IVPB ONE (12:00)
[2018-03-18 18:34] VITALS: TEMP 99.3
[2018-03-18 18:38] VITALS: BP 145/75; PULSE 94
== END 2018-03-18 14:30 | disposition home or self-care (01) ==
LOC: JONCCHEMO 07:31 → JONCNONCHE 07:31 → J7W 13:01 → JONCNONCHE 14:30
PROVIDERS: ATTEND Internal Medicine Hematology & Oncology
PROC: 3E033GC Introduction of Other Therapeutic Substance into Peripheral Vein, Percutaneous Approach (ICD-10-PCS; principal; 2018-03-18)
DX: D50.9 Iron deficiency anemia, unspecified (principal)
CPT/HCPCS: 96365; J1756

== ENCOUNTER 2018-04-29 07:26 | Day surgery (SDC) | payer OTHER ==
[2018-04-29] MEDS ORDERED: IRON SUCROSE INJECTION 100 MG in SODIUM CHLORIDE 100 ML IVPB ONE (13:00)
[2018-04-29 18:09] VITALS: TEMP 98.1
[2018-04-29 18:24] VITALS: BP 120/62; PULSE 95
== END 2018-04-29 14:15 | disposition home or self-care (01) ==
LOC: JONCNONCHE 07:26 → J7W 12:52 → JONCNONCHE 14:15
PROVIDERS: ATTEND Internal Medicine Hematology & Oncology
PROC: 3E033GC Introduction of Other Therapeutic Substance into Peripheral Vein, Percutaneous Approach (ICD-10-PCS; principal; 2018-04-29)
DX: D50.9 Iron deficiency anemia, unspecified (principal)
CPT/HCPCS: 96365; J1756

== ENCOUNTER 2018-05-13 07:26 | Day surgery (SDC) | payer OTHER ==
[2018-05-13] MEDS ORDERED: IRON SUCROSE INJECTION 100 MG in SODIUM CHLORIDE 100 ML IVPB ONE (13:00)
[2018-05-13 13:49] VITALS: BP 110/64; PULSE 80; TEMP 97.6
== END 2018-05-13 13:50 | disposition home or self-care (01) ==
LOC: JONCNONCHE 07:26 → J7W 12:54 → JONCNONCHE 13:50
PROVIDERS: ATTEND Internal Medicine Hematology & Oncology
PROC: 3E033GC Introduction of Other Therapeutic Substance into Peripheral Vein, Percutaneous Approach (ICD-10-PCS; principal; 2018-05-13)
DX: D50.9 Iron deficiency anemia, unspecified (principal)
CPT/HCPCS: 96365; J1756

== ENCOUNTER 2018-05-30 11:54 | Emergency (ER) | payer OTHER ==
[2018-05-30 11:59] VITALS: TEMP 98.3; BMI 31.9
[2018-05-30] MEDS ORDERED: ONDANSETRON 4 MG/2 ML VIAL IVPUSH ONE (12:36)
[2018-05-30] MEDS ORDERED: ACETAMINOPHEN 1000 MG/100 ML VIAL (NON FORMULARY) IVPB ONE (12:36)
--- NOTE | 2018-05-30 12:53 | PDOC ---
Attending Attestation - Resident Resident Name: Jong Mitchell - ED Attending Attestation I have performed the following: I have examined & evaluated the patient, The case was reviewed & discussed with the resident, I agree w/resident's findings & plan, Exceptions are as noted
[2018-05-30] MEDS ORDERED: ONDANSETRON *ODT* 4 MG TABLET SL ONE (13:16)
[2018-05-30] MEDS ORDERED: ACETAMINOPHEN INJECTION 100 ML IVPB ONE (13:32)
[2018-05-30] MEDS ORDERED: ONDANSETRON *ODT* 4 MG TABLET ONE (13:32)
--- NOTE | 2018-05-30 13:47 | PDOC ---
History of Present Illness - General Chief Complaint: Lightheaded Stated Complaint: DIZZY AND CONFUSED Time Seen by Provider: 05/30/18 12:25 History Source: Patient Exam Limitations: No Limitations - History of Present Illness Initial Comments: 05/30/18 13:40 Patient is a 78F with extensive medical history, including anemia, HTN, diverticulitis, CAD, MVP, gastritis, hiatal hernia, PUD, s/p appy/jamar/ colectomy/oopherectomy here today complaining of feeling diaphoretic, weak and lightheaded at her heme Dr Esposito. Denies chest pain and shortness of breath. Endorses nausea, denies vomiting. Patient denies history of diabetes. Patient has history of anemia requiring multiple transfusions in the past, and was due to get iron transfusion on Wednesday which she was unable to get due to difficulty getting IV access. Fingerstick was 165. Past History - Past Medical History Allergies/Adverse Reactions: Allergies Allergy/AdvReac Type Severity Reaction Status Date / Time metronidazole [From Flagyl] Allergy Intermediate Swelling Verified 05/30/18 11: 56 lactose AdvReac Verified 05/30/18 11:56 fresh fruit Allergy Vomiting Uncoded 05/30/18 11:56 fresh vegetables Allergy Uncoded 05/30/18 11:56 Home Medications: Ambulatory Orders Cholecalciferol (Vitamin D3) [Vitamin D3] 2,000 unit PO DAILY 11/02/16 Diltiazem HCl [Diltiazem 24Hr Cd] 240 mg PO HS 11/02/16 Levothyroxine [Synthroid -] 25 mcg PO DAILY 11/02/16 Montelukast Na [Singulair -] 10 mg PO DAILY 11/02/16 Nitroglycerin [Nitrostat] 0.4 mg SL PRN PRN 11/02/16 Sertraline HCl [Zoloft -] 100 mg PO DAILY 11/02/16 Sumatriptan Succinate [Imitrex -] 100 mg PO PRN 11/02/16 Polyethylene Glycol 3350 [Miralax 119 gm Btl -] 17 gm PO BID bottle 11/10/16 Acetaminophen [Tylenol .Regular Strength -] 650 mg PO Q4H PRN #0 tablet Budesonide/Formeterol Fumarate [SYMBICORT 160/4.5mcg -] 2 puff IH BID #1 inhaler 12/07/16 Quinapril HCl [Accupril -] 10 mg PO DAILY #30 tablet 12/07/16 Dicyclomine HCl [Bentyl] 10 mg PO BID PRN 11/05/17 Meclizine HCl [Antivert -] 25 mg PO TID PRN 11/05/17 Ondansetron HCl [Zofran] 8 mg PO BID PRN 11/05/17 Pregabalin [Lyrica] 25 mg PO BID 11/05/17 Potassium Chloride [K-Dur -] 10 meq PO DAILY 12/02/17 Ranitidine HCl 150 mg PO HS 12/02/17 Vitamin E 1,000 unit PO DAILY 12/02/17 Mag Carb/Aluminum Hydrox/Algin [Gaviscon Liquid] 30 ml PO Q6H PRN #355 oz Pantoprazole Sodium [Protonix -] 40 mg PO BID 30 Days #60 tablet.ec 12/03/17 Alprazolam [Xanax] 1 mg PO DAILY 05/30/18 Ciprofloxacin HCl [Cipro] 500 mg PO BID 05/30/18 Anemia: Yes Asthma: Yes (NO RECENT ATTACK) Cancer: No Cardiac Disorders: Yes (MITRAL VALVE PROLAPSE,ASHD) CVA: No COPD: Yes CHF: No DVT: No Dementia: No Diabetes: No GI Disorders: Yes (H/O COLON POLYPS,GERD,HIATAL HERNIA,PEPTIC ULCERS) Disorders: Yes (UTI'S) HTN: Yes Hypercholesterolemia: No Liver Disease: Yes (NON ALCOHOLIC FATTY LIVER) Seizures: No Thyroid Disease: Yes (HYPOTYHROIDISM) - Surgical History Abdominal Surgery: Yes (SX FOR BOWEL OBSTRUCTIONS AND ADHESIONS x 51 times) Appendectomy: Yes Cardiac Surgery: No Cholecystectomy: Yes (OPEN) GI Surgery: Yes Lung Surgery: No Neurologic Surgery: No Orthopedic Surgery: Yes (r shoulder replacement, then humerus fracture repair) - Immunization History Immunization Up to Date: Yes - Suicide/Smoking/Psychosocial Hx Smoking Status: No Smoking History: Never smoked Have you smoked in the past 12 months: No Number of Cigarettes Smoked Daily: 0 Information on smoking cessation initiated: No Hx Alcohol Use: No Drug/Substance Use Hx: No Substance Use Type: None Hx Substance Use Treatment: No Review of Systems - Review of Systems Comments:: 05/30/18 13:49 GENERAL/CONSTITUTIONAL: No fever or chills. No weakness. HEAD, EYES, EARS, NOSE AND THROAT: No change in vision. No sore throat. CARDIOVASCULAR: No chest pain or shortness of breath RESPIRATORY: No cough, wheezing, or hemoptysis. GASTROINTESTINAL: +nausea. No vomiting, diarrhea or constipation. GENITOURINARY: No dysuria, frequency, or change in urination. MUSCULOSKELETAL: +diffuse joint pain in arms and legs. +neck +back pain. SKIN: No rash NEUROLOGIC: No headache, vertigo, loss of consciousness, or change in strength/ sensation. ENDOCRINE: No increased thirst. No abnormal weight change HEMATOLOGIC/LYMPHATIC: +anemia. No easy bleeding, or history of blood clots. ALLERGIC/IMMUNOLOGIC: No hives or skin allergy. *Physical Exam - Vital Signs Last Vital Signs Temp Pulse Resp BP Pulse Ox 98.3 F 100 H 18 115/69 100 05/30/18 11:56 05/30/18 11:56 05/30/18 11:56 05/30/18 11:56 05/30/18 11:56 - Physical Exam Comments: 05/30/18 13:50 GENERAL: Awake, alert, and fully oriented, in no acute distress HEAD: No signs of trauma, normocephalic, atraumatic EYES: PERRLA, EOMI, sclera anicteric, conjunctiva clear ENT: Auricles normal inspection, hearing grossly normal, nares patent, oropharynx clear without exudates. Moist mucosa NECK: Normal ROM, supple, no lymphadenopathy, JVD, or masses LUNGS: No distress, speaks full sentences, clear to auscultation bilaterally HEART: Regular rate and rhythm, normal S1 and S2, no murmurs, rubs or gallops, peripheral pulses normal and equal bilaterally. ABDOMEN: Soft, nontender, normoactive bowel sounds. No guarding, no rebound. Mass in R upper quadrant (morphine delivery device per pt) EXTREMITIES: Normal inspection, Normal range of motion, no edema. No clubbing or cyanosis. NEUROLOGICAL: Cranial nerves II through XII grossly intact. Normal speech, no focal sensorimotor deficits SKIN: Warm, Dry, normal turgor, no rashes or lesions noted. ED Treatment Course - LABORATORY CBC & Chemistry Diagram: 05/30/18 13:45 05/30/18 13:45 Medical Decision Making - Medical Decision Making 05/30/18 13:51 Patient is 78F with extensive medical history, including anemia, HTN, diverticulitis, CAD, MVP, gastritis, hiatal hernia, PUD, s/p appy/jamar/ colectomy/oopherectomy, here today with lightheadedness. Vital signs notable for tachycardia. DDx includes, but is not limited to: anemia, ACS arrhythmia. Patient complains of diffuse abdominal pain, back pain, and extremity pain, but states that this is at her baseline. 05/30/18 15:53 Laboratory Tests 05/30/18 05/30/18 05/30/18 13:45 13:45 13:45 WBC 7.0 Hgb 11.4 Plt Count 253 BUN 15 Creatinine 0.9 Troponin I < 0.02 Urine Nitrite Ur Leukocyte Esterase 05/30/18 14:35 WBC Hgb Plt Count BUN Creatinine Troponin I Urine Nitrite Negative Ur Leukocyte Esterase Negative CBC normal, no signs of anemia. CMP reassuring. Troponin undetectable. UA negative. Patient reassessed, says that she's feeling better. Still complains of abdominal pain, but says that it is her same chronic pain. States that she wants to go home and will call her PCP today. *DC/Admit/Observation/Transfer Diagnosis at time of Disposition: Dizziness - Discharge Dispostion Disposition: HOME Condition at time of disposition: Good Decision to Admit order: No - Referrals - Patient Instructions Printed Discharge Instructions: DI for Dizziness-Nonvertigo Additional Instructions: Please follow up with your primary care physician today. Please return if you have any new, worsening or concerning symptoms. - Post Discharge Activity
[2018-05-30 14:15] LABS: BASO % 0.3 % (0-2.0); HEMATOCRIT 35.6 % (32.4-45.2); HEMOGLOBIN 11.4 GM/dL (10.7-15.3); LYMPH % 14.8 % (8-40); MCH 28.2 pg (25.7-33.7); MCHC 31.9 g/dl (32.0-36.0); MEAN CELL VOLUME 88.5 fl (80-96); MEAN PLT VOLUME 8.5 fl (7.5-11.1); MONO % 7.1 % (3.8-10.2); NEUT % 76.8 % (42.8-82.8); PLATELET COUNT 253 K/MM3 (134-434); RBC 4.02 M/mm3 (3.60-5.2); RDW 18.2 % (11.6-15.6)
[2018-05-30 14:27] LABS: INR 0.98 (0.83-1.09); PROTHROMBIN TIME (PATIENT) 11.1 SEC (9.7-13.0)
[2018-05-30 14:35] LABS: ALBUMIN 3.6 g/dl (3.4-5.0); ALK PHOS 97 U/L (45-117); ANION GAP 8 (8-16); BILIRUBIN,TOTAL 0.2 mg/dL (0.2-1.0); BLOOD UREA NITROGEN 15 mg/dL (7-18); CALCIUM 9.4 mg/dL (8.5-10.1); CHLORIDE 100 mmol/L (98-107); CO2 30 mmol/L (21-32); CREATININE 0.9 mg/dL (0.55-1.02); GLUCOSE,RANDOM 115 mg/dL (74-106); LIPASE 101 U/L (73-393); POTASSIUM 3.9 mmol/L (3.5-5.1); SGOT/AST 15 U/L (15-37); SGPT/ALT 19 U/L (12-78); SODIUM 138 mmol/L (136-145); TOT PROT 6.7 g/dl (6.4-8.2)
[2018-05-30 14:38] LABS: MAGNESIUM 1.5 mg/dL (1.8-2.4); PHOSPHOROUS 3.9 mg/dL (2.5-4.9)
[2018-05-30 14:53] LABS: URINE APPEARANCE CLEAR; URINE BILIRUBIN NEGATIVE (<2.0 mg/dL); URINE COLOR LTYELLOW; URINE GLUCOSE (UA) NEGATIVE (NEGATIVE); URINE KETONE NEGATIVE (NEGATIVE); URINE LEUK ESTERASE NEGATIVE (NEGATIVE); URINE NITRITE NEGATIVE (NEGATIVE); URINE PROTEIN NEGATIVE (NEGATIVE); URINE UROBILINOGEN NEGATIVE mg/dL (0.2-1.0)
[2018-05-30 16:22] VITALS: BP 150/100; PULSE 105
--- NOTE | 2018-05-31 13:14 | EKG ---
Test Reason : Blood Pressure : / mmHG Vent. Rate : 105 BPM Atrial Rate : 105 BPM P-R Int : 136 ms QRS Dur : 080 ms QT Int : 338 ms P-R-T Axes : 046 002 015 degrees QTc Int : 446 ms SINUS TACHYCARDIA WITH PREMATURE SUPRAVENTRICULAR COMPLEXES CANNOT RULE OUT ANTERIOR INFARCT , AGE UNDETERMINED ABNORMAL ECG Confirmed by Hubert Hill MD ([id number]) on 05/31/2018 1:14:30 PM Referred By: Confirmed By:Hubert Hill MD
== END 2018-05-30 16:22 | disposition home or self-care (01) ==
LOC: JER 11:54
PROC: 3E033NZ Introduction of Analgesics, Hypnotics, Sedatives into Peripheral Vein, Percutaneous Approach (ICD-10-PCS; principal; 2018-05-30)
PROC: 3E033GC Introduction of Other Therapeutic Substance into Peripheral Vein, Percutaneous Approach (ICD-10-PCS; 2018-05-30)
DX: R42 Dizziness and giddiness (principal); D50.9 Iron deficiency anemia, unspecified; I25.10 Atherosclerotic heart disease of native coronary artery without angina pectoris; I10 Essential (primary) hypertension; Z87.19 Personal history of other diseases of the digestive system; Z90.49 Acquired absence of other specified parts of digestive tract; J45.909 Unspecified asthma, uncomplicated; E03.9 Hypothyroidism, unspecified; K76.0 Fatty (change of) liver, not elsewhere classified; Z87.440 Personal history of urinary (tract) infections
CPT/HCPCS: 36415; 80053; 81003; 82550; 82962; 83690; 83735; 84100; 84484; 85025; 85610; 86850; 86900; 86901; 93005; 93010; 96374; 96375; 99284-25; J0131; Q0162

== ENCOUNTER 2018-06-22 07:41 | Day surgery (SDC) | payer OTHER ==
[2018-06-21 12:50] VITALS: BMI 31.6
[2018-06-22 08:59] LABS: BASO % 0.5 % (0-2.0); EOS % 4.2 % (0-4.5); HEMATOCRIT 38.6 % (32.4-45.2); HEMOGLOBIN 12.1 GM/dL (10.7-15.3); LYMPH % 23.5 % (8-40); MCHC 31.2 g/dl (32.0-36.0); MEAN CELL VOLUME 89.7 fl (80-96); MEAN PLT VOLUME 8.5 fl (7.5-11.1); NEUT % 66.8 % (42.8-82.8); PLATELET COUNT 288 K/MM3 (134-434); RBC 4.31 M/mm3 (3.60-5.2); RDW 17.9 % (11.6-15.6); WHITE BLOOD COUNT 9.9 K/mm3 (4.0-10.0)
[2018-06-22 09:14] LABS: INR 0.91 (0.83-1.09); PROTHROMBIN TIME (PATIENT) 10.3 SEC (9.7-13.0)
[2018-06-22] MEDS ORDERED: MIDAZOLAM HCL 2 MG/2 ML SINGLE DOSE VIAL ONE (09:45)
[2018-06-22] MEDS ORDERED: IRON SUCROSE INJECTION 200 MG in SODIUM CHLORIDE 100 ML IVPB ONE (10:00)
[2018-06-22 17:46] VITALS: BP 112/75; PULSE 109; TEMP 98.1
[2018-06-22] MEDS ORDERED: PORTA CATH FLUSH 10 ML IVPUSH ONE (17:48)
== END 2018-06-22 13:35 | disposition home or self-care (01) ==
LOC: JRADIR 07:41 → J7W 12:48 → JRADIR 13:35
PROVIDERS: ATTEND Internal Medicine Hematology & Oncology
PROC: 3E043GC Introduction of Other Therapeutic Substance into Central Vein, Percutaneous Approach (ICD-10-PCS; principal; 2018-06-22)
PROC: 02HV33Z Insertion of Infusion Device into Superior Vena Cava, Percutaneous Approach (ICD-10-PCS; 2018-06-22)
PROC: B518ZZA Fluoroscopy of Superior Vena Cava, Guidance (ICD-10-PCS; 2018-06-22)
DX: D50.9 Iron deficiency anemia, unspecified (principal)
CPT/HCPCS: 36561; 77001; 96365; C1751; 36415; 85025; 85610; C1788; J1756

== ENCOUNTER 2018-07-01 08:48 | Day surgery (SDC) | payer OTHER ==
[2018-07-01] MEDS ORDERED: IRON SUCROSE INJECTION 200 MG in SODIUM CHLORIDE 100 ML IVPB ONE (13:30)
[2018-07-01 18:41] VITALS: BP 127/48; PULSE 76; TEMP 97.9
[2018-07-01] MEDS ORDERED: PORTA CATH FLUSH 10 ML IVPUSH ONE (18:41)
== END 2018-07-01 13:35 | disposition home or self-care (01) ==
LOC: JONCNONCHE 08:48 → J7W 13:14 → JONCNONCHE 13:35
PROVIDERS: ATTEND Internal Medicine Hematology & Oncology
PROC: 3E033GC Introduction of Other Therapeutic Substance into Peripheral Vein, Percutaneous Approach (ICD-10-PCS; principal; 2018-07-01)
DX: D50.9 Iron deficiency anemia, unspecified (principal)
CPT/HCPCS: 96365; J1756

== ENCOUNTER 2018-07-08 07:40 | Day surgery (SDC) | payer OTHER ==
[2018-07-08] MEDS ORDERED: IRON SUCROSE INJECTION 200 MG in SODIUM CHLORIDE 100 ML IVPB ONE (10:00)
[2018-07-08 17:43] VITALS: TEMP 98.5
[2018-07-08 17:45] VITALS: BP 114/61; PULSE 99
[2018-07-08] MEDS ORDERED: PORTA CATH FLUSH 10 ML IVPUSH ONE (17:45)
== END 2018-07-08 13:50 | disposition home or self-care (01) ==
LOC: JONCNONCHE 07:40 → J7W 13:05 → JONCNONCHE 13:50
PROVIDERS: ATTEND Internal Medicine Hematology & Oncology
PROC: 3E043GC Introduction of Other Therapeutic Substance into Central Vein, Percutaneous Approach (ICD-10-PCS; principal; 2018-07-08)
DX: D50.9 Iron deficiency anemia, unspecified (principal)
CPT/HCPCS: 96365; J1756

== ENCOUNTER 2018-08-15 13:02 | Inpatient (IN) | payer OTHER ==
[2018-08-15] MEDS ORDERED: morphine CARPU-JECT 2 MG/1 ML DISP.SYRIN IVPUSH ONE ×2 (14:24→20:42)
[2018-08-15] MEDS ORDERED: SODIUM CHLORIDE 1,000 ML IV STA (14:24)
[2018-08-15] MEDS ORDERED: morphine SULFATE 4 MG/ML VIAL ONE (14:48)
[2018-08-15 14:52] LABS: BASO % 0.2 % (0-2.0); EOS % 2.8 % (0-4.5); HEMATOCRIT 38.8 % (32.4-45.2); LYMPH % 12.4 % (8-40); MCH 30.8 pg (25.7-33.7); MCHC 33.4 g/dl (32.0-36.0); MEAN CELL VOLUME 92.4 fl (80-96); MEAN PLT VOLUME 9.8 fl (7.5-11.1); MONO % 6.7 % (3.8-10.2); NEUT % 77.9 % (42.8-82.8); PLATELET COUNT 297 K/MM3 (134-434); WHITE BLOOD COUNT 5.8 K/mm3 (4.0-10.0)
[2018-08-15 15:03] LABS: INR 0.97 (0.83-1.09); PROTHROMBIN TIME (PATIENT) 11.4 SEC (9.7-13.0)
[2018-08-15 15:06] LABS: ACTIVATED PTT 29.8 SECONDS (25.2-36.5)
[2018-08-15 15:14] LABS: ALBUMIN 3.1 g/dl (3.4-5.0); ALK PHOS 90 U/L (45-117); ANION GAP 8 MMOL/L (8-16); BILIRUBIN,TOTAL 0.4 mg/dL (0.2-1); BLOOD UREA NITROGEN 15 mg/dL (7-18); CALCIUM 8.4 mg/dL (8.5-10.1); CHLORIDE 99 mmol/L (98-107); CO2 31 mmol/L (21-32); CREATININE 0.9 mg/dL (0.55-1.3); GLUCOSE,RANDOM 117 mg/dL (74-106); LIPASE 68 U/L (73-393); POTASSIUM 3.9 mmol/L (3.5-5.1); SGOT/AST 13 U/L (15-37); SGPT/ALT 13 U/L (13-61); SODIUM 137 mmol/L (136-145)
--- NOTE | 2018-08-15 15:30 | PDOC ---
History of Present Illness - General Chief Complaint: Palpitations Stated Complaint: abdominal pain Time Seen by Provider: 08/15/18 13:42 History Source: Patient Exam Limitations: No Limitations - History of Present Illness Travel History: No Initial Comments: 08/15/18 15:31 78-year-old female presents to the ED with complaints of intermittent diarrhea for the past month now with nausea vomiting and generalized weakness. Patient states has not been able to drink enough fluids secondary to nausea. Patient does have history of multiple abdominal surgeries with obstruction in the past now with a morphine pump secondary to chronic abdominal pain. Patient also states has right Port-A-Cath secondary to poor IV access. Patient states he is followed by Dr. Vishal Stewart for GI. Timing/Duration: reports: getting worse, intermittent Quality: reports: moderate, cramping Abdominal Pain Onset Location: reports: RLQ, LLQ Pain Radiation: reports: no radiation Activities at Onset: reports: none Aggravating Factors: improves with: None Alleviating Factors: improves with: None Past History - Travel Traveled outside of the country in the last 30 days: No Close contact w/someone who was outside of country & ill: No - Past Medical History Allergies/Adverse Reactions: Allergies Allergy/AdvReac Type Severity Reaction Status Date / Time metronidazole [From Flagyl] Allergy Intermediate Swelling Verified 08/15/18 13: 05 amoxicillin Allergy Verified 08/15/18 13:05 lactose AdvReac Verified 08/15/18 13:05 fresh fruit Allergy Vomiting Uncoded 08/15/18 13:05 fresh vegetables Allergy Uncoded 08/15/18 13:05 Home Medications: Ambulatory Orders Cholecalciferol (Vitamin D3) [Vitamin D3] 2,000 unit PO DAILY 11/02/16 Diltiazem HCl [Diltiazem 24Hr Cd] 240 mg PO HS 11/02/16 Levothyroxine [Synthroid -] 25 mcg PO DAILY 11/02/16 Montelukast Na [Singulair -] 10 mg PO HS 11/02/16 Nitroglycerin [Nitrostat] 0.4 mg SL PRN PRN 11/02/16 Sertraline HCl [Zoloft -] 100 mg PO DAILY 11/02/16 Sumatriptan Succinate [Imitrex -] 100 mg PO PRN 11/02/16 Polyethylene Glycol 3350 [Miralax 119 gm Btl -] 17 gm PO BID bottle 11/10/16 Acetaminophen [Tylenol .Regular Strength -] 650 mg PO Q4H PRN #0 tablet Quinapril HCl [Accupril -] 10 mg PO DAILY #30 tablet 12/07/16 Meclizine HCl [Antivert -] 25 mg PO TID PRN 11/05/17 Pregabalin [Lyrica] 25 mg PO TID 11/05/17 Potassium Chloride [K-Dur -] 10 meq PO DAILY 12/02/17 Ranitidine HCl 150 mg PO HS 12/02/17 Vitamin E 1,000 unit PO DAILY 12/02/17 Budesonide/Formeterol Fumarate [SYMBICORT 160/4.5mcg -] 2 puff IH PRN PRN Pantoprazole Sodium [Protonix -] 40 mg PO BID 06/21/18 Pantoprazole Sodium [Protonix -] 40 mg PO BID #60 tablet.ec 08/21/18 Anemia: Yes (IRON DEFICIENCY ANEMIA) Asthma: Yes (NO RECENT ATTACK) Cancer: No Cardiac Disorders: Yes (MITRAL VALVE PROLAPSE,ASHD) CVA: No COPD: No CHF: No DVT: No Dementia: No Diabetes: No GI Disorders: Yes (H/O COLON POLYPS,GERD,HIATAL HERNIA,PEPTIC ULCERS) Disorders: Yes (UTI'S) HTN: Yes Hypercholesterolemia: No Liver Disease: Yes (NON ALCOHOLIC FATTY LIVER) Seizures: No Thyroid Disease: Yes (HYPOTYHROIDISM) - Surgical History Abdominal Surgery: Yes (SX FOR BOWEL OBSTRUCTIONS AND ADHESIONS x 51 times) Appendectomy: Yes Cardiac Surgery: No Cholecystectomy: Yes (OPEN) GI Surgery: Yes Lung Surgery: No Neurologic Surgery: No Orthopedic Surgery: Yes (r shoulder replacement, then humerus fracture repair) - Immunization History Immunization Up to Date: Yes - Suicide/Smoking/Psychosocial Hx Smoking Status: No Smoking History: Never smoked Have you smoked in the past 12 months: No Number of Cigarettes Smoked Daily: 0 Hx Alcohol Use: No Drug/Substance Use Hx: No Substance Use Type: None Hx Substance Use Treatment: No Patient Lives Alone: No Lives with/in: spouse/SO Abd/GI Specific PMHX - Complaint Specific PMHX GERD: No GI Ulcer Disease: No Review of Systems - Review of Systems Able to Perform ROS?: Yes Constitutional: Yes: Weakness. No: Fever HEENTM: No: Symptoms Reported Respiratory: No: Symptoms reported Cardiac (ROS): No: Symptoms Reported ABD/GI: Yes: Diarrhea, Nausea, Poor Appetite, Poor Fluid Intake, Vomiting, Abdominal cramping : No: Symptoms Reported Musculoskeletal: No: Symptoms Reported Integumentary: No: Symptoms Reported Neurological: Yes: Weakness. No: Headache, Dizziness Endocrine: No: Symptoms Reported *Physical Exam - Vital Signs Last Vital Signs Temp Pulse Resp BP Pulse Ox 97.9 F 120 H 18 155/74 94 L 08/15/18 13:07 08/15/18 13:07 08/15/18 13:07 08/15/18 13:07 08/15/18 13:30 - Physical Exam General Appearance: Yes: Nourished, Appropriately Dressed. No: Apparent Distress HEENT: positive: EOMI, VASHTI, TMs Normal, Pharynx Normal (dry mucus membranes) Neck: positive: Supple Respiratory/Chest: positive: Lungs Clear, Normal Breath Sounds. negative: Respiratory Distress, Accessory Muscle Use Cardiovascular: positive: Regular Rhythm, Tachycardia. negative: Murmur Gastrointestinal/Abdominal: positive: Soft, Tenderness (llq, lower periimbilical , rlq), Other (palpable device to rlq) Extremity: positive: Normal Capillary Refill. negative: Pedal Edema Integumentary: positive: Normal Color, Warm, Moist Neurologic: positive: Normal Mood/Affect, Motor Strength 5/5 Heart Score/ECG Review - ECG Intrepretation Rhythm: Regular Rhythm (rate 110, planno st elevation or depression) ED Treatment Course - LABORATORY CBC & Chemistry Diagram: 08/20/18 07:45 08/20/18 07:45 - ADDITIONAL ORDERS Additional order review: Laboratory Results 08/15/18 08/15/18 14:30 14:30 PT with INR 11.40 INR 0.97 PTT (Actin FS) 29.8 Lactic Acid 1.6 08/15/18 14:30 RBC 4.20 MCV 92.4 MCHC 33.4 RDW 15.0 D MPV 9.8 D Neutrophils % 77.9 Lymphocytes % 12.4 D Monocytes % 6.7 Eosinophils % 2.8 Basophils % 0.2 - RADIOLOGY Radiology Studies Ordered: Category Date Time Status CHEST X-RAY PORTABLE* [RAD] Stat Radiology 08/15/18 14:23 Taken - Medications Given in the ED: ED Medications Discontinued Medications Generic Name Dose Route Start Last Admin Trade Name Alejandra PRN Reason Stop Dose Admin Morphine Sulfate 2 mg 08/15/18 14:24 08/15/18 14:56 Morphine Injection - IVPUSH 08/15/18 14:25 2 mg ONCE ONE Administration Medical Decision Making - Medical Decision Making 08/15/18 15:43 Complaint: lower abdominal pain with nausea vomiting and generalized weakness exam: Left lower periumbilical right lower quadrant pain. Tachycardic and appears dry on exam Plan: Labs, antiemetics, urine and will order a CT once labs are resulted 08/15/18 15:46 Laboratory Tests 08/15/18 08/15/18 08/15/18 14:30 14:30 14:30 WBC 5.8 Hgb 13.0 Hct 38.8 Absolute Neuts (auto) 4.5 Neutrophils % 77.9 PT with INR 11.40 INR 0.97 PTT (Actin FS) 29.8 Sodium 137 Potassium 3.9 Chloride 99 Carbon Dioxide 31 Anion Gap 8 BUN 15 Creatinine 0.9 Random Glucose 117 H Lactic Acid Calcium 8.4 L Total Bilirubin 0.4 AST 13 L ALT 13 Alkaline Phosphatase 90 Albumin 3.1 L Lipase 68 L 08/15/18 14:30 WBC Hgb Hct Absolute Neuts (auto) Neutrophils % PT with INR INR PTT (Actin FS) Sodium Potassium Chloride Carbon Dioxide Anion Gap BUN Creatinine Random Glucose Lactic Acid 1.6 Calcium Total Bilirubin AST ALT Alkaline Phosphatase Albumin Lipase abd pelvic ct with iv and po contrast *DC/Admit/Observation/Transfer Diagnosis at time of Disposition: SBO (small bowel obstruction) - Discharge Dispostion Disposition: HOME Condition at time of disposition: Stable - Prescriptions - Referrals - Patient Instructions - Post Discharge Activity
--- NOTE | 2018-08-15 20:01 | PDOC ---
*Physical Exam - Vital Signs Last Vital Signs Temp Pulse Resp BP Pulse Ox 97.9 F 104 H 19 134/58 L 95 08/15/18 13:07 08/15/18 19:16 08/15/18 19:16 08/15/18 19:16 08/15/18 19:16 ED Treatment Course - LABORATORY CBC & Chemistry Diagram: 08/15/18 14:30 08/15/18 14:30 - ADDITIONAL ORDERS Additional order review: Laboratory Results 08/15/18 08/15/18 08/15/18 14:30 14:30 14:30 PT with INR 11.40 INR 0.97 PTT (Actin FS) 29.8 Sodium 137 Potassium 3.9 Chloride 99 Carbon Dioxide 31 Anion Gap 8 BUN 15 Creatinine 0.9 Creat Clearance w eGFR > 60 Random Glucose 117 H Lactic Acid 1.6 Calcium 8.4 L Total Bilirubin 0.4 AST 13 L ALT 13 Alkaline Phosphatase 90 Troponin I < 0.02 Total Protein 6.0 L Albumin 3.1 L Lipase 68 L 08/15/18 14:30 RBC 4.20 MCV 92.4 MCHC 33.4 RDW 15.0 D MPV 9.8 D Neutrophils % 77.9 Lymphocytes % 12.4 D Monocytes % 6.7 Eosinophils % 2.8 Basophils % 0.2 - RADIOLOGY Radiograph Interpretation: 08/15/18 20:04 CAT scan abdomen and pelvis with by mouth and IV contrast status post right hemicolectomy. Moderate to marked dilatation of the small bowel loops in the entire abdomen measuring up to 6 cm with air-fluid levels and without gross wall thickening consistent with distal small bowel obstruction. Site of obstruction is not clear on this examination. Dilated small bowel loops could not be traced to the site of anastomosis with the colon. Status post right hemicolectomy with surgical sutures seen at the site of anastomosis: - Medications Given in the ED: ED Medications Discontinued Medications Generic Name Dose Route Start Last Admin Trade Name Freq PRN Reason Stop Dose Admin Sodium Chloride 1,000 mls @ 1,000 mls/hr 08/15/18 14:24 08/15/18 15:25 Normal Saline - IV 08/15/18 15:23 1,000 mls/hr ASDIR STA Administration Morphine Sulfate 2 mg 08/15/18 14:24 08/15/18 14:56 Morphine Injection - IVPUSH 08/15/18 14:25 2 mg ONCE ONE Administration Progress Note - Progress Note Progress Note: 2003hrs: Pt's pmd is Dr. Wesley....Dr. Sosa covering...Hospitalist covering for Dr. Sosa Spoke to Dr. Aviles/hospitalist, Admit 2007hrs: Called Dr. Stewart/pt's Gi physician 2010hrsL Called Dr Ashlyn Garcia/surgeon who last consulted with pt. 2026hrs: Spoke to Dr. Garcia/will consult in the am..NG tube *DC/Admit/Observation/Transfer Diagnosis at time of Disposition: SBO (small bowel obstruction) - Discharge Dispostion Condition at time of disposition: Guarded Decision to Admit order: Yes - Referrals Referrals: Jong Rodgers MD [Primary Care Provider] - - Patient Instructions - Post Discharge Activity
--- NOTE | 2018-08-15 20:17 | PN ---
Teaching Attending Note Name of Resident: Ramón Echevarria ATTENDING PHYSICIAN STATEMENT I saw and evaluated the patient. I reviewed the resident's note and discussed the case with the resident. I agree with the resident's findings and plan as documented. SUBJECTIVE: Patient is a 78 year old woman with history of mutiple abdominal surgeries, boderline DM, right shoulder replacement, anemia, HTN, diverticulitis, CAD, MVP , gastritis, hiatal hernia, PUD, s/p appendectomy/cholecystectomy/colectomy and oopherectomy who presents to the ER with complaints of intermittent diarrhea for the past month now with nausea, vomiting and generalized weakness. Patient states has not been able to drink enough fluids secondary to nausea. Patient does have history of multiple abdominal surgeries with obstruction in the past now with a morphine pump secondary to chronic abdominal pain. Patient also states has right Port-A-Cath secondary to poor IV access. OBJECTIVE: Alert Vital Signs Period Temp Pulse Resp BP Sys/Ahn Pulse Ox Last 24 Hr 97.9 F 88-120 14-19 111-155/51-74 94-96 HEENT: No Jaundice, eye redness or discharge, PERRLA, EOMI. Normocephalic, atraumatic. External ears are normal and hearing is grossly intact. No nasal discharge. Neck: Supple, nontender. No palpable adenopathy or thyromegaly. No JVD Chest: Good effort. Clear to auscultation and percussion. Heart: Regular. No S3, rub or murmur Abdomen: Not distended, soft, diffuse lower abdominal tenderness and no HSM. No rebound or guarding. Normoactive bowel sounds. Ext: Peripheral pulses intact. No leg edema. Skin: Warm and dry. No petechiae, rash or ecchymosis. Neuro: Alert. Oriented x3. CN 2-12 grossly intact. Sensation grossly intact in all four extremities and DTR are symmetric. Home Medications Medication Instructions Recorded Cholecalciferol (Vitamin D3) 2,000 unit PO DAILY 11/02/16 [Vitamin D3] Diltiazem HCl [Diltiazem 24Hr Cd] 240 mg PO HS 11/02/16 Levothyroxine [Synthroid -] 25 mcg PO DAILY 11/02/16 Montelukast Na [Singulair -] 10 mg PO HS 01/23/17 Nitroglycerin [Nitrostat] 0.4 mg SL PRN PRN 11/02/16 Sertraline HCl [Zoloft -] 100 mg PO DAILY 11/02/16 Sumatriptan Succinate [Imitrex -] 100 mg PO PRN 11/02/16 Polyethylene Glycol 3350 [Miralax 17 gm PO BID bottle 11/10/16 119 gm Btl -] Acetaminophen [Tylenol .Regular 650 mg PO Q4H PRN #0 tablet 12/07/16 Strength -] Quinapril HCl [Accupril -] 10 mg PO DAILY #30 tablet 12/07/16 Meclizine HCl [Antivert -] 25 mg PO TID PRN 11/05/17 Ondansetron HCl [Zofran] 8 mg PO BID PRN 11/05/17 Pregabalin [Lyrica] 25 mg PO TID 11/05/17 Potassium Chloride [K-Dur -] 10 meq PO DAILY 12/02/17 Ranitidine HCl 150 mg PO HS 12/02/17 Vitamin E 1,000 unit PO DAILY 12/02/17 Budesonide/Formeterol Fumarate 2 puff IH PRN PRN 06/21/18 [SYMBICORT 160/4.5mcg -] Pantoprazole Sodium [Protonix -] 40 mg PO DAILY 06/21/18 Dicyclomine HCl [Bentyl -] 10 mg PO BID PRN 08/15/18 Abnormal Lab Results 08/15/18 14:30 Random Glucose 117 H Calcium 8.4 L AST 13 L Total Protein 6.0 L Albumin 3.1 L Lipase 68 L ASSESSMENT AND PLAN: 1. SBO - CT scan of the abdomen suggests SBO but no transition point noted. Not actively vomiting. Will monitor closely in view of frequent loose bowel movements. Send stool for analysis if she has any more loose bowel movements. Continue analgesics, monitor electrolytes, keep NPO and give IV NS at 75 ml/ hour. Surgery consulted. 2. DVT prophylaxis - Heparin 5000u sq tid. 3. Advance directives - Full code
[2018-08-15] MEDS ORDERED: ONDANSETRON 4 MG/2 ML VIAL IVPUSH ONE (20:42)
[2018-08-15] MEDS ORDERED: MORPHINE SULFATE 2 MG/ML VIAL ONE (21:02)
[2018-08-15] MEDS ORDERED: ONDANSETRON 4 MG/2 ML VIAL ONE (21:03)
[2018-08-15] MEDS: SODIUM CHLORIDE 1,000 ML IV SCH (22:14)
--- NOTE | 2018-08-15 22:42 | HP ---
CHIEF COMPLAINT: abdominal pain, vomiting, diarrhea PCP: Dr. Rodgers HISTORY OF PRESENT ILLNESS: Patient is a 78 year old female with history of small bowel obstruction in the past, hiatal hernia, diverticulosis, gastritis, iron deficiency anemia receiving iron infusions, mitral valve prolapse, presents with complaint of abdominal pain, nausea, vomiting, diarrhea for past week. Pain has been progressively worsening, described as sharp, constant, localized to right lower abdominal quadrant. Pain is not received with eating, or bowel movement. Denies clear provocative features. Abdominal pain is associated with 6 episodes of liquid brown diarrhea today. She admits passing flatus. Denies melena, hematochezia. Patient also endorses nausea, and two episodes of bilious vomiting this morning approx. 9am. Patient states that she has not been able to tolerate oral intake for the past three days. She endorses chills, without subjective fevers. Last seen in 02/2018 for partial small bowel obstruction that was managed conservatively, without surgical intervention. Last colonoscopy on 11/2017 showing anastomotic stricture at proximal transverse colon that was dilated. Perianastomotic ulcer noted likely secondary to NSAID use. Last EGD on 11/2017 showed mild erosive erythematous gastritis within gastric antrum. Pathology was negative for H/ pylori. Duodenal mucosal atrophy noted within second portion duodenum. ER course was notable for: (1) CT abdomen pelvis: marked to moderate dilation of small bowel loops to 6cm, with air fluid levels, consistent with small bowel obstruction. (2) EKG: sinus tachycardia at 110bpm without ischemic changes (3) IV morphine 4mg + 2mg, In normal saline 1L bolus PAST MEDICAL HISTORY: small bowel obstruction, hiatal hernia, diverticulosis, gastritis, iron deficiency anemia, mitral valve prolapse PAST SURGICAL HISTORY: Right shoulder repair with subsequent right humerus repair last year, open cholecystectomy, appendectomy, right hemicolectomy, oopherectomy. Social History: Smoking: denies Alcohol: denies Drugs: denies Family History: Mother: Breast cancer, s/p bilateral mastectomy. Esophageal cancer. at 60 y/o Father: Lung cancer. at 54 y/o Allergies: Reports lips, and tongue swelling, with difficulty breathing with fresh fruits and fresh vegetables. metronidazole [From Flagyl] Allergy (Intermediate, Verified 08/15/18 13:05) Swelling amoxicillin Allergy (Verified 08/15/18 13:05) lactose Adverse Reaction (Verified 08/15/18 13:05) fresh fruit Allergy (Uncoded 08/15/18 13:05) Vomiting fresh vegetables Allergy (Uncoded 08/15/18 13:05) HOME MEDICATIONS: Home Medications Medication Instructions Recorded Cholecalciferol (Vitamin D3) 2,000 unit PO DAILY 11/02/16 [Vitamin D3] Diltiazem HCl [Diltiazem 24Hr Cd] 240 mg PO HS 11/02/16 Levothyroxine [Synthroid -] 25 mcg PO DAILY 11/02/16 Montelukast Na [Singulair -] 10 mg PO HS 11/02/16 Nitroglycerin [Nitrostat] 0.4 mg SL PRN PRN 11/02/16 Sertraline HCl [Zoloft -] 100 mg PO DAILY 11/02/16 Sumatriptan Succinate [Imitrex -] 100 mg PO PRN 11/02/16 Polyethylene Glycol 3350 [Miralax 17 gm PO BID bottle 11/10/16 119 gm Btl -] Acetaminophen [Tylenol .Regular 650 mg PO Q4H PRN #0 tablet 12/07/16 Strength -] Quinapril HCl [Accupril -] 10 mg PO DAILY #30 tablet 12/07/16 Meclizine HCl [Antivert -] 25 mg PO TID PRN 11/05/17 Ondansetron HCl [Zofran] 8 mg PO BID PRN 11/05/17 Pregabalin [Lyrica] 25 mg PO TID 11/05/17 Potassium Chloride [K-Dur -] 10 meq PO DAILY 12/02/17 Ranitidine HCl 150 mg PO HS 12/02/17 Vitamin E 1,000 unit PO DAILY 12/02/17 Budesonide/Formeterol Fumarate 2 puff IH PRN PRN 06/21/18 [SYMBICORT 160/4.5mcg -] Pantoprazole Sodium [Protonix -] 40 mg PO DAILY 06/21/18 Dicyclomine HCl [Bentyl -] 10 mg PO BID PRN 08/15/18 REVIEW OF SYSTEMS CONSTITUTIONAL: Admits: chills, generalized weakness. Absent: fever, diaphoresis, malaise, loss of appetite, weight change HEENT: Absent: rhinorrhea, nasal congestion, throat pain, throat swelling, difficulty swallowing, mouth swelling, ear pain, eye pain, visual changes CARDIOVASCULAR: Absent: chest pain, syncope, palpitations, irregular heart rate, lightheadedness , peripheral edema RESPIRATORY: Absent: cough, shortness of breath, dyspnea with exertion, orthopnea, wheezing, stridor, hemoptysis GASTROINTESTINAL: Admits: abdominal pain, nausea, vomiting, diarrhea. Absent: abdominal distension , constipation, melena, hematochezia. GENITOURINARY: Absent: dysuria, frequency, urgency, hesitancy, hematuria, flank pain, genital pain MUSCULOSKELETAL: Absent: myalgia, arthralgia, joint swelling, back pain, neck pain SKIN: Absent: rash, itching, pallor HEMATOLOGIC/IMMUNOLOGIC: Absent: easy bleeding, easy bruising, lymphadenopathy, frequent infections ENDOCRINE: Absent: unexplained weight gain, unexplained weight loss, heat intolerance, cold intolerance NEUROLOGIC: Absent: headache, focal weakness or paresthesias, dizziness, unsteady gait, seizure, mental status changes, bladder or bowel incontinence PSYCHIATRIC: Absent: anxiety, depression, suicidal or homicidal ideation, hallucinations. PHYSICAL EXAMINATION Vital Signs - 24 hr 08/15/18 08/15/18 08/15/18 13:07 13:30 14:30 Temperature 97.9 F Pulse Rate 120 H Pulse Rate [ 97 H Apical] Respiratory 18 17 Rate Blood Pressure 155/74 Blood Pressure 113/56 L [Left Arm] O2 Sat by Pulse 94 L 94 L 95 Oximetry (%) 08/15/18 08/15/18 08/15/18 15:00 15:30 16:00 Temperature Pulse Rate Pulse Rate [ 93 H 88 93 H Apical] Respiratory 14 14 14 Rate Blood Pressure Blood Pressure 111/72 111/57 L 112/51 L [Left Arm] O2 Sat by Pulse 95 95 96 Oximetry (%) 08/15/18 19:16 Temperature Pulse Rate Pulse Rate [ 104 H Apical] Respiratory 19 Rate Blood Pressure Blood Pressure 134/58 L [Left Arm] O2 Sat by Pulse 95 Oximetry (%) GENERAL: Obese, female appears states age. Awake, alert, and fully oriented, in no acute distress. HEAD: Normal with no signs of trauma. EYES: Pupils equal, round and reactive to light, extraocular movements intact without nystagmus. Sclera anicteric, conjunctiva clear without ocular pallor. EARS, NOSE, THROAT: Ears normal, nares patent, oropharynx clear without exudates. Moist mucous membranes. NECK: Normal range of motion, supple without lymphadenopathy, JVD, or masses. LUNGS: Breath sounds equal, clear to auscultation bilaterally. No wheezes, and no crackles. No accessory muscle use. CHEST: Right sided upper chest catheter (tunneled port catheter) noted clean without erythema, swelling, bleeding, or discharge. HEART: Regular rate and rhythm, normal S1 and S2 without murmur, rub or gallop. ABDOMEN: Obese. Soft, not distended. Tenderness to palpation at epigastrium, right upper and lower abdominal quadrants. Normoactive bowel sounds auscultated X4 quadrants. No guarding, no rebound tenderness. Hepatomegaly palpated and percussed 2cm below costal margin. Implanted morphine pump palpated within RLQ. RECTAL: Patient refused rectal exam upon my encounter. MUSCULOSKELETAL: Normal range of motion at all joints. No bony deformities or tenderness. No CVA tenderness. UPPER EXTREMITIES: 2+ radial pulses b/l, warm, well-perfused. Strength 5/5 b/l upper extremities. LOWER EXTREMITIES: 2+ dorsalis pedis pulses b/l, warm, well-perfused. No calf tenderness. 1+ peripheral edema b/l. Strength 5/5 b/l lower extremities. NEUROLOGICAL: Cranial nerves II-XII intact. Normal speech. PSYCHIATRIC: Cooperative. Good eye contact. Appropriate mood and affect upon my encounter today. SKIN: Warm, dry. Numerous abdominal scars from prior surgeries noted clean, dry , well healed. Laboratory Results - last 24 hr 08/15/18 08/15/18 08/15/18 14:30 14:30 14:30 WBC 5.8 RBC 4.20 Hgb 13.0 Hct 38.8 MCV 92.4 MCH 30.8 MCHC 33.4 RDW 15.0 D Plt Count 297 MPV 9.8 D Absolute Neuts (auto) 4.5 Neutrophils % 77.9 Lymphocytes % 12.4 D Monocytes % 6.7 Eosinophils % 2.8 Basophils % 0.2 Nucleated RBC % 0 PT with INR 11.40 INR 0.97 PTT (Actin FS) 29.8 Sodium 137 Potassium 3.9 Chloride 99 Carbon Dioxide 31 Anion Gap 8 BUN 15 Creatinine 0.9 Creat Clearance w eGFR > 60 Random Glucose 117 H Lactic Acid Calcium 8.4 L Total Bilirubin 0.4 AST 13 L ALT 13 Alkaline Phosphatase 90 Troponin I < 0.02 Total Protein 6.0 L Albumin 3.1 L Lipase 68 L 08/15/18 14:30 WBC RBC Hgb Hct MCV MCH MCHC RDW Plt Count MPV Absolute Neuts (auto) Neutrophils % Lymphocytes % Monocytes % Eosinophils % Basophils % Nucleated RBC % PT with INR INR PTT (Actin FS) Sodium Potassium Chloride Carbon Dioxide Anion Gap BUN Creatinine Creat Clearance w eGFR Random Glucose Lactic Acid 1.6 Calcium Total Bilirubin AST ALT Alkaline Phosphatase Troponin I Total Protein Albumin Lipase ASSESSMENT/PLAN: Patient is a 78 year old female with history of small bowel obstruction in the past, hiatal hernia, diverticulosis, gastritis, iron deficiency anemia receiving iron infusions, mitral valve prolapse, presents with complaint of abdominal pain, nausea, vomiting, diarrhea for past week. Small bowel obstruction -Etiology likely secondary to adhesions from numerous abdominal surgeries in the past. Less likely secondary to bowel necrosis as patient does not have white count, or fevers.. -CT abdomen pelvis preliminary reading shows marked to moderate dilation of small bowel loops to 6cm, with air fluid levels, consistent with small bowel obstruction. Will follow official reading. -Lactic acid 1.6 -> 1.5 -NPO -Patient refused NG tube placement -IV normal saline at 75mL/ hour -Pain control with Ofirmev 1000mg Q6H PRN. Patient endorses that her Morphine pump is continuously active at 1mg/ 24 hours -Protonix 40mg IV BID -F/U general surgery consult (Dr. Garcia) -F/U GI consult (Dr. Stewart) Hypertension -BP currently stable and patient not hypertensive at time of admission. -Will hold oral antihypertensives, and monitor vital signs closely. Iron deficiency anemia -Patient will continue outpatient follow-up with Dr. Esposito Asthma -Continue Symbicort -Continue Albuterol rescue inhaler PRN FEN -IV normal saline at 75mL/ hour -No electrolyte abnormalities. Follow CMP -Strict NPO Prophylaxis -Heparin 5000u subq TID -Protonix 40mg IV BID Disposition -Admit to medical surgical floor Visit type - Emergency Visit Emergency Visit: Yes ED Registration Date: 08/15/18 Care time: The patient presented to the Emergency Department on the above date and was hospitalized for further evaluation of their emergent condition. - New Patient This patient is new to me today: Yes Date on this admission: 08/16/18 - Critical Care Critical Care patient: No
[2018-08-15 23:19] LABS: URINE APPEARANCE CLEAR; URINE BILIRUBIN NEGATIVE (<2.0 mg/dL); URINE COLOR YELLOW; URINE GLUCOSE (UA) NEGATIVE (NEGATIVE); URINE KETONE NEGATIVE (NEGATIVE); URINE LEUK ESTERASE 2+ (NEGATIVE); URINE NITRITE POSITIVE (NEGATIVE); URINE PROTEIN NEGATIVE (NEGATIVE); URINE UROBILINOGEN NEGATIVE mg/dL (0.2-1.0)
[2018-08-15 23:26] LABS: EPI CELLS RARE /HPF (FEW); URINE MUCUS RARE
[2018-08-16 00:59] VITALS: BMI 34.0
[2018-08-16] MEDS ORDERED: KETOROLAC TROMETHAMINE 15 MG/ML VIAL IM ONE (01:05)
[2018-08-16] MEDS: MELATONIN 5 MG TABLETS PO SCH ×2 (01:16→22:11)
[2018-08-16] MEDS: HEPARIN NA (PORCINE) 5,000 UNITS/ML 1ML VIAL SQ SCH ×4 (01:17→22:13)
[2018-08-16] MEDS ORDERED: ALBUTEROL SO4 0.083% IH SOL 2.5 MG/3 ML VIAL.NEB. NEB PRN (06:34)
[2018-08-16 08:17] LABS: HEMATOCRIT 34.1 % (32.4-45.2); HEMOGLOBIN 10.8 GM/dL (10.7-15.3); MCH 29.4 pg (25.7-33.7); MCHC 31.7 g/dl (32.0-36.0); MEAN CELL VOLUME 92.5 fl (80-96); MEAN PLT VOLUME 9.5 fl (7.5-11.1); PLATELET COUNT 253 K/MM3 (134-434); RBC 3.68 M/mm3 (3.60-5.2); WHITE BLOOD COUNT 5.6 K/mm3 (4.0-10.0)
--- NOTE | 2018-08-16 08:50 | CONSULT ---
Consult Consult Specialty:: General Surgery Reason for Consultation:: SBO - History of Present Illness Chief Complaint: nausea and vomiting History of Present Illness: 77 yo female PMH diverticular disease, chronic abdominal pain, morphine pump, colitis, gastrointestinal bleed, diarrhea presented to the emergency department reporting abdominal pain that started 1 week ago. She has had many previous episodes, no vomiting only nausea. She took zofran, used morphine pump without relief. She has a know stenotic surgical anastomosis multiple history of hospital admissions for small bowel obstruction. previously successfully managed with NGT decompression. extensive history of abdominal surgery. She was on the toiled when I cam to assess her she was having liquid stool and flatus which is her baseline. She was admitted with a similar presentation in February 2018 during which she refused NGT and surgery. Most recent CTscan abdomen and pelvis showed and obstructive pattern and the same anastomotic stricture and we were asked to assess again. 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 cervical and lumbar radiculopathy. avascular necrosis of femoral head. 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 Travel: No Home Medications - Allergies Allergies/Adverse Reactions: Allergies Allergy/AdvReac Type Severity Reaction Status Date / Time metronidazole [From Flagyl] Allergy Intermediate Swelling Verified 08/15/18 13: 05 amoxicillin Allergy Verified 08/15/18 13:05 lactose AdvReac Verified 08/15/18 13:05 fresh fruit Allergy Vomiting Uncoded 08/15/18 13:05 fresh vegetables Allergy Uncoded 08/15/18 13:05 - Home Medications Home Medications: Ambulatory Orders Cholecalciferol (Vitamin D3) [Vitamin D3] 2,000 unit PO DAILY 11/02/16 Diltiazem HCl [Diltiazem 24Hr Cd] 240 mg PO HS 11/02/16 Levothyroxine [Synthroid -] 25 mcg PO DAILY 11/02/16 Montelukast Na [Singulair -] 10 mg PO HS 11/02/16 Nitroglycerin [Nitrostat] 0.4 mg SL PRN PRN 11/02/16 Sertraline HCl [Zoloft -] 100 mg PO DAILY 11/02/16 Sumatriptan Succinate [Imitrex -] 100 mg PO PRN 11/02/16 Polyethylene Glycol 3350 [Miralax 119 gm Btl -] 17 gm PO BID bottle 11/10/16 Acetaminophen [Tylenol .Regular Strength -] 650 mg PO Q4H PRN #0 tablet Quinapril HCl [Accupril -] 10 mg PO DAILY #30 tablet 12/07/16 Meclizine HCl [Antivert -] 25 mg PO TID PRN 11/05/17 Ondansetron HCl [Zofran] 8 mg PO ONCE PRN 11/05/17 Pregabalin [Lyrica] 25 mg PO TID 11/05/17 Potassium Chloride [K-Dur -] 10 meq PO DAILY 12/02/17 Ranitidine HCl 150 mg PO HS 12/02/17 Vitamin E 1,000 unit PO DAILY 12/02/17 Budesonide/Formeterol Fumarate [SYMBICORT 160/4.5mcg -] 2 puff IH PRN PRN Pantoprazole Sodium [Protonix -] 40 mg PO BID 06/21/18 Dicyclomine HCl [Bentyl -] 10 mg PO BID PRN 08/15/18 Family Disease History - Family Disease History Family Disease History: CA: Father (lung), Mother (breast) Review of Systems - Review of Systems Constitutional: denies: Chills, Fever, Unintentional Wgt. Loss Eyes: denies: Double Vision, Recent Change in Vision HENT: denies: Difficult Swallowing, Throat Pain Neck: denies: Decreased ROM, Pain on Movement, Tenderness Cardiovascular: denies: Chest Pain, Palpitations Respiratory: denies: Cough, SOB Gastrointestinal: reports: Bloating, Constipation, Diarrhea, Vomiting. denies: Abdominal Pain, Melena, Nausea, Rectal Bleeding, Vomiting Blood Genitourinary: denies: Discharge, Dysuria, Flank Pain Breasts: reports: No Symptoms Reported. denies: Pain Musculoskeletal: denies: Muscle Cramps, Muscle Weakness Integumentary: denies: Bruising, Pruritis, Rash Neurological: denies: Seizure, Syncope Endocrine: denies: Unexplained Weight Gain, Unexplained Weight Loss Hematology/Lymphatic: denies: Easily Bruised, Excessive Bleeding Psychiatric: denies: Anxiety, Depression Physical Exam Vital Signs: Vital Signs Temperature 98.7 F 08/16/18 05:55 Pulse Rate 98 H 08/16/18 05:55 Respiratory Rate 20 08/16/18 05:55 Blood Pressure 123/70 08/16/18 05:55 O2 Sat by Pulse Oximetry (%) 98 08/16/18 02:00 Vital Signs Period Temp Pulse Resp BP Sys/Ahn Pulse Ox Last 24 Hr 97.9 F-99.6 F 88-120 14-20 111-155/51-95 94-100 Constitutional: Yes: Well Nourished, No Distress, Calm, Obese Eyes: Yes: Conjunctiva Clear, EOM Intact HENT: Yes: Atraumatic, Normocephalic Neck: Yes: Supple, Trachea Midline Cardiovascular: Yes: Regular Rate and Rhythm, S1, S2 Respiratory: Yes: Regular, CTA Bilaterally Gastrointestinal: Yes: Normal Bowel Sounds, Soft, Abdomen, Obese, Distention. No: Tenderness, Tenderness, Epigastrium, Tenderness, Rebound ...Rectal Exam: Yes: Sphincter Tone Normal. No: Guaiac Positive, Hemorrhoids/ External, Mass Renal/: No: CVA Tenderness - Left, CVA Tenderness - Right Extremities: No: Cool, Cyanosis Edema: No Peripheral Pulses WNL: Yes Integumentary: No: Jaundice, Rash Neurological: Yes: Alert, Oriented Psychiatric: Yes: Alert, Oriented Labs: CBC, BMP 08/16/18 07:10 Imaging - Results X-ray: Pending Cat Scan: Report Reviewed, Image Reviewed (SBO pattern small bowel loop in the pelvis 5cm, anastomotic stricture upper abdomen) Problem List - Problems (1) Partial small bowel obstruction Assessment/Plan: 77yo female MMP with recurrent partial SBO, No acute surgical intervention is indicated. Passing BM and flatus now. NPO and IVF hydration NGT was suggested and refused by patient Treat UTI antiemetic therapy Adequate analgesia serial abdominal xrays will follow for serial exams Thank you for the opportunity to participate in the care of this patient. Code(s): K56.600 - PARTIAL INTESTINAL OBSTRUCTION, UNSPECIFIED TO CAUSE (2) Anastomotic stricture of small intestine Code(s): K91.89 - OTH POSTPROCEDURAL COMPLICATIONS AND DISORDERS OF DGSTV SYS (3) Chronic bilateral low back pain Code(s): M54.5 - LOW BACK PAIN; G89.29 - OTHER CHRONIC PAIN Qualifiers: Sciatica presence: without sciatica Qualified Code(s): M54.5 - Low back pain; G89.29 - Other chronic pain (4) Diverticulosis Code(s): K57.90 - DVRTCLOS OF INTEST, PART UNSP, W/O PERF OR ABSCESS W/O BLEED Qualifiers: Diverticulosis site: diverticulosis of large intestine Diverticulosis bleeding: diverticulosis without bleeding Qualified Code(s): K57.30 - Diverticulosis of large intestine without perforation or abscess without bleeding (5) Stricture intestinal Code(s): K56.699 - OTHER INTESTNL OBST UNSP TO PARTIAL VERSUS COMPLETE OBST (6) Asthma Code(s): J45.909 - UNSPECIFIED ASTHMA, UNCOMPLICATED Qualifiers: Asthma severity: moderate Asthma persistence: persistent Asthma complication type: uncomplicated Qualified Code(s): J45.40 - Moderate persistent asthma, uncomplicated (7) Chronic pain Code(s): G89.29 - OTHER CHRONIC PAIN Qualifiers: Chronic pain type: chronic pain syndrome Qualified Code(s): G89.4 - Chronic pain syndrome (8) HTN (hypertension) Code(s): I10 - ESSENTIAL (PRIMARY) HYPERTENSION Qualifiers: Hypertension type: essential hypertension Qualified Code(s): I10 - Essential (primary) hypertension (9) Hypothyroid Code(s): E03.9 - HYPOTHYROIDISM, UNSPECIFIED Qualifiers: Hypothyroidism type: unspecified Qualified Code(s): E03.9 - Hypothyroidism , unspecified
[2018-08-16 08:59] LABS: ALBUMIN 2.5 g/dl (3.4-5.0); ALK PHOS 73 U/L (45-117); ANION GAP 7 MMOL/L (8-16); BILIRUBIN,TOTAL 0.2 mg/dL (0.2-1); BLOOD UREA NITROGEN 12 mg/dL (7-18); CALCIUM 7.5 mg/dL (8.5-10.1); CHLORIDE 105 mmol/L (98-107); CO2 28 mmol/L (21-32); CREATININE 0.8 mg/dL (0.55-1.3); GLUCOSE,RANDOM 80 mg/dL (74-106); MAGNESIUM 1.3 mg/dL (1.8-2.4); PHOSPHOROUS 4.2 mg/dL (2.5-4.9); POTASSIUM 3.6 mmol/L (3.5-5.1); SGOT/AST 14 U/L (15-37); SGPT/ALT 12 U/L (13-61); SODIUM 140 mmol/L (136-145); TOT PROT 4.9 g/dl (6.4-8.2)
[2018-08-16] MEDS: PANTOPRAZOLE SODIUM 40 MG VIAL IVPUSH SCH ×2 (09:49→22:13)
[2018-08-16] MEDS: SODIUM CHLORIDE 1,000 ML IV SCH ×2 (09:51→22:11)
[2018-08-16] MEDS: BUDESONIDE/FORMETEROL FUMARATE 160/4.5 mcg INHALER IH SCH ×3 (09:51→22:13)
[2018-08-16] MEDS ORDERED: FLU VACCINE QUAD 60 MCG/0.5 ML (MDV 18-19) IM ONE (10:00)
[2018-08-16] MEDS: ACETAMINOPHEN 1000 MG/100 ML VIAL (NON FORMULARY) IVPB PRN ×2 (10:31→17:03)
[2018-08-16] MEDS ORDERED: KCL 10 MEQ IVPB 10 MEQ/100 ML INFUS.BAG IVPB SCH (11:00)
[2018-08-16] MEDS ORDERED: MAGNESIUM SULF 50% (8.12 MEQ/2 ML-1 GM VIAL) IVPB ONE ×2 (11:00→15:00)
--- NOTE | 2018-08-16 11:08 | PN ---
Progress Note, Physician Chief Complaint: Pt lying in bed in no acute distress. reports abd pain, no flatus now. Denies any chest pain, sob, n/v - Current Medication List Current Medications: Active Medications Acetaminophen (Ofirmev Injection -) 1,000 mg IVPB Q6H PRN PRN Reason: PAIN LEVEL 1-5 Last Admin: 08/16/18 10:31 Dose: 1,000 mg Albuterol Sulfate (Ventolin 0.083% Nebulizer Soln -) 1 amp NEB Q6H PRN PRN Reason: SHORT OF BREATH/WHEEZING Budesonide/Formoterol Fumarate (Symbicort 160/4.5mcg -) 2 puff IH BID [facility] Last Admin: 08/16/18 10:38 Dose: Not Given Heparin Sodium (Porcine) (Heparin -) 5,000 unit SQ TID [facility] Last Admin: 08/16/18 06:42 Dose: 5,000 unit Sodium Chloride (Normal Saline -) 1,000 mls @ 75 mls/hr IV ASDIR [facility] Last Admin: 08/16/18 09:51 Dose: 75 mls/hr Potassium Chloride (Potassium Chloride 10 Meq Premix Ivpb -) 10 meq in 100 mls @ 100 mls/hr IVPB Q60M [facility] Stop: 08/16/18 11:59 Melatonin (Melatonin) 10 mg PO HS [facility] Last Admin: 08/16/18 01:16 Dose: 10 mg Ondansetron HCl (Zofran Injection) 4 mg IVPUSH Q6H PRN PRN Reason: NAUSEA AND/OR VOMITING Pantoprazole Sodium (Protonix Iv) 40 mg IVPUSH BID [facility] Last Admin: 08/16/18 09:49 Dose: 40 mg - Objective Vital Signs: Vital Signs Temperature 98.7 F 08/16/18 05:55 Pulse Rate 98 H 08/16/18 05:55 Respiratory Rate 20 08/16/18 05:55 Blood Pressure 123/70 08/16/18 05:55 O2 Sat by Pulse Oximetry (%) 98 08/16/18 02:00 Constitutional: Yes: Well Nourished, No Distress, Calm Cardiovascular: Yes: WNL, Regular Rate and Rhythm. No: Murmur Respiratory: Yes: WNL, Regular, CTA Bilaterally. No: Accessory Muscle Use, Rhonchi, SOB, Tachypnea, Wheezes Gastrointestinal: Yes: Soft, Abdomen, Obese, Distention, Hypoactive Bowel Sounds , Tenderness (generalized). No: Tenderness, Rebound, Vomiting Genitourinary: Yes: WNL Extremities: Yes: WNL Edema: No Neurological: Yes: WNL, Alert, Oriented Psychiatric: Yes: WNL, Alert, Oriented Labs: CBC, BMP 08/16/18 07:10 08/16/18 07:10 INR, PTT INR 0.97 (0.83-1.09) 08/15/18 14:30 Assessment/Plan (1) SBO (small bowel obstruction) Assessment/Plan: conservative management kub this am- sbo remains abd soft, mildly tender, hypoactive bs, - flatus NGT to LCWS NPO, IVF ambulate as tolerated surgery following Code(s): K56.609 - UNSP INTESTNL OBST, UNSP TO PARTIAL VERSUS COMPLETE OBST (2) UTI (urinary tract infection) Assessment/Plan: UA+, UC pending Levaquin day 1 Code(s): N39.0 - URINARY TRACT INFECTION, SITE NOT SPECIFIED Qualifiers: Urinary tract infection type: acute cystitis Hematuria presence: with hematuria Qualified Code(s): N30.01 - Acute cystitis with hematuria (3) HTN (hypertension) Assessment/Plan: controlled cardizem, quinapril Code(s): I10 - ESSENTIAL (PRIMARY) HYPERTENSION Qualifiers: Hypertension type: essential hypertension Qualified Code(s): I10 - Essential (primary) hypertension (4) Hypothyroid Assessment/Plan: stable continue levothyroxine Code(s): E03.9 - HYPOTHYROIDISM, UNSPECIFIED Qualifiers: Hypothyroidism type: unspecified Qualified Code(s): E03.9 - Hypothyroidism , unspecified (5) Asthma Assessment/Plan: stable, continue current management Code(s): J45.909 - UNSPECIFIED ASTHMA, UNCOMPLICATED (6) Vertigo Assessment/Plan: stable continue meclizine prn Code(s): R42 - DIZZINESS AND GIDDINESS (7) GERD (gastroesophageal reflux disease) Assessment/Plan: EGD on 12/03/17 revealed gastritis continue protonix Code(s): K21.9 - GASTRO-ESOPHAGEAL REFLUX DISEASE WITHOUT ESOPHAGITIS (8) Anastomotic stricture of small intestine Assessment/Plan: s/p balloon dilation,perianastomotic stricture, 11/2017 Code(s): K91.89 - OTH POSTPROCEDURAL COMPLICATIONS AND DISORDERS OF DGSTV SYS (9) Anemia Assessment/Plan: stable, baseline hg around 10 Code(s): D64.9 - ANEMIA, UNSPECIFIED Qualifiers: Anemia type: iron deficiency (10) Chronic bilateral low back pain Assessment/Plan: controlled, followed by neurologist [facility] implanted morphine pump in ruq, active Code(s): M54.5 - LOW BACK PAIN; G89.29 - OTHER CHRONIC PAIN (11) Chronic pain Assessment/Plan: as above Code(s): G89.29 - OTHER CHRONIC PAIN (12) Hypokalemia Assessment/Plan: K3.6 kcl iv 20meq x 1 Code(s): E87.6 - HYPOKALEMIA (13) Hypomagnesemia Assessment/Plan: Mg 1.3 Mg iv 2g x 2 monitor bmp Code(s): E83.42 - HYPOMAGNESEMIA
[2018-08-16] MEDS ORDERED: QUINAPRIL HCL 10 MG TABLET (FP) PO SCH (11:45)
--- NOTE | 2018-08-16 12:08 | EKG ---
Test Reason : Blood Pressure : / mmHG Vent. Rate : 091 BPM Atrial Rate : 091 BPM P-R Int : 144 ms QRS Dur : 094 ms QT Int : 394 ms P-R-T Axes : 068 028 052 degrees QTc Int : 484 ms SINUS RHYTHM WITH PREMATURE ATRIAL COMPLEXES POSSIBLE INFERIOR INFARCT (CITED ON OR BEFORE 15-AUG-2018) T WAVE ABNORMALITY, CONSIDER ANTERIOR ISCHEMIA ABNORMAL ECG Confirmed by MD RADHAMES, MANUEL ([id number]) on 08/16/2018 12:08:18 PM Referred By: Confirmed By:MANUEL RICCI MD
[2018-08-16] MEDS: MORPHINE SULFATE 2 MG/ML VIAL IVPUSH PRN ×2 (13:38→22:13)
--- NOTE | 2018-08-16 13:45 | PN ---
Progress Note (short form) - Note Progress Note: NG tube placed and draining copious secretions to Low Goo. Followup Flat Plate for position of tube ordered. EKG change noted; referral to Cardiology; ? electrolyte cause
[2018-08-16] MEDS: PREGABALIN 25 MG CAPSULE PO SCH ×2 (13:51→22:11)
[2018-08-16] MEDS ORDERED: MECLIZINE HCL 25 MG TABLET (FP) PO PRN (14:05)
--- NOTE | 2018-08-16 15:49 | CON.CARD ---
Consult Consult Specialty:: cardio - History of Present Illness Chief Complaint: abd pain History of Present Illness: 78 F here with SBO, being managed conservatively by surgery team. EKG changes noted, we were asked to consult. 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 cervical and lumbar radiculopathy. avascular necrosis of femoral head. 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 Travel: No Home Medications - Allergies Allergies/Adverse Reactions: Allergies Allergy/AdvReac Type Severity Reaction Status Date / Time metronidazole [From Flagyl] Allergy Intermediate Swelling Verified 08/15/18 13: 05 amoxicillin Allergy Verified 08/15/18 13:05 lactose AdvReac Verified 08/15/18 13:05 fresh fruit Allergy Vomiting Uncoded 08/15/18 13:05 fresh vegetables Allergy Uncoded 08/15/18 13:05 - Home Medications Home Medications: Ambulatory Orders Cholecalciferol (Vitamin D3) [Vitamin D3] 2,000 unit PO DAILY 11/02/16 Diltiazem HCl [Diltiazem 24Hr Cd] 240 mg PO HS 11/02/16 Levothyroxine [Synthroid -] 25 mcg PO DAILY 11/02/16 Montelukast Na [Singulair -] 10 mg PO HS 11/02/16 Nitroglycerin [Nitrostat] 0.4 mg SL PRN PRN 11/02/16 Sertraline HCl [Zoloft -] 100 mg PO DAILY 11/02/16 Sumatriptan Succinate [Imitrex -] 100 mg PO PRN 11/02/16 Polyethylene Glycol 3350 [Miralax 119 gm Btl -] 17 gm PO BID bottle 11/10/16 Acetaminophen [Tylenol .Regular Strength -] 650 mg PO Q4H PRN #0 tablet Quinapril HCl [Accupril -] 10 mg PO DAILY #30 tablet 12/07/16 Meclizine HCl [Antivert -] 25 mg PO TID PRN 11/05/17 Ondansetron HCl [Zofran] 8 mg PO ONCE PRN 11/05/17 Pregabalin [Lyrica] 25 mg PO TID 11/05/17 Potassium Chloride [K-Dur -] 10 meq PO DAILY 12/02/17 Ranitidine HCl 150 mg PO HS 12/02/17 Vitamin E 1,000 unit PO DAILY 12/02/17 Budesonide/Formeterol Fumarate [SYMBICORT 160/4.5mcg -] 2 puff IH PRN PRN Pantoprazole Sodium [Protonix -] 40 mg PO BID 06/21/18 Dicyclomine HCl [Bentyl -] 10 mg PO BID PRN 08/15/18 Family Disease History - Family Disease History Family Disease History: CA: Father (lung), Mother (breast) Vital Signs: Vital Signs Temperature 98.2 F 08/16/18 11:17 Pulse Rate 102 H 08/16/18 11:17 Respiratory Rate 18 08/16/18 11:17 Blood Pressure 123/70 08/16/18 05:55 O2 Sat by Pulse Oximetry (%) 95 08/16/18 11:33 - Other Data Labs, Other Data: CBC, BMP 08/16/18 07:10 08/16/18 07:10 INR, PTT INR 0.97 (0.83-1.09) 08/15/18 14:30 Laboratory Tests 08/15/18 08/16/18 08/16/18 14:30 07:10 07:10 WBC 5.6 Hgb 10.8 Plt Count 253 Sodium 140 Potassium 3.6 Carbon Dioxide 28 BUN 12 Creatinine 0.8 AST 14 L ALT 12 L Troponin I < 0.02 Albumin 2.5 L Assessment/Plan ECG 08/15/18: NSR with APCs; early R/S transition with associated TWIs septal leads--? old posterior wall HI. (non-pathologic Q waves in inferior leads). -- vs 02/12/18 and 10/12/17 priors, this ECG is not signif changed (q waves slightly more prominent in inferior leads) SBO: -no plans for surgery at present -per director surgical HTN: -BP controlled -cont home meds -note: if ileus suspected (vs stricture related), would strongly consider decreasing CCB to lowest dose that will effectively control pt's BP, vs possibly substituting an alternative agent if no prior issues with med intolerance--will defer to dr sullivan who knows pt well ECG abnormalities: -no signif changes vs priors. troponin neg. -likely normal variant, doubt true prior silent posterior wall HI (>>> inferior wall) but pt diabetic, with risk for SIHD -check echo for wall motion. if LV normal, and no angina sx's, no indication for stress testing here (including if going for SBO surgical repair later on). DM: -per hospitalist
--- NOTE | 2018-08-16 19:01 | CON.GI ---
Consult Consult Specialty:: Gastroenterology Referred by:: Dr. Nieves Reason for Consultation:: Abdominal pain and vomiting - History of Present Illness Chief Complaint: Abdominal pain and vomiting for 3-4 days History of Present Illness: 78F has had abdominal pain, vomiting and diarrhea for the past 3-4 days. She has been taking Peptol bismol and describes the stools as loose and black. She has a longstanding h/ o recurrent SBOs and over 50 surgeries. Her last SBO was managed conservatively in 03/28. She tells me that she now has a right chest port that was placed to allow for weekly iron infusions. Her diarrhea has been found to be paradoxical and due to narcotic induced fecal impactions which responded well to Movantik. At her last visit with me on 04/28/18 she told me that she stopped the Movantik and was having well formed bowel movements in response to a decrease in her narcotic dosing. She has an indwelling narcotic infusion pump. She has also required multiple blood transfusions. She underwent both an EGD and a colonoscopy with me on 12/03/17. EGD revealed antral gastritis but no bleeding. 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 The stricture revealed ulcerations. Biopsies revealed only granulation tissue. She has told me that she will not allow another colonoscopy at this time. Bleeding from small bowel vascular ectasias has been suspected but her adhesions and the anastomotic stricture have precluded capsule endoscopy. 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: Migraine Cardio/Vascular: Yes: CAD, HTN, Other (MVP) Pulmonary: Yes: Asthma, Bronchitis Gastrointestinal: Yes: Constipation, Diverticulosis, Gastritis, GERD, Hiatal Hernia, Irritable Bowel Disease, Peptic Ulcer Disease, Other (colon polyps) Hepatobiliary: Yes: Other (NAFLD, papillary stenosis @ ERCP with Dr Amaro ) Renal/: Yes: UTI Heme/Onc: Yes: Anemia (requiring port for iron infusions, s/p multiple transfusions) Psych: Yes: Addictions (narcotic dependence, has spinal narcotic infusion pump) , Anxiety Musculoskeletal: Yes: Chronic low back pain (cervical and lumbar radiculopathy) , Osteoarthritis Rheumatology: Yes: Other (avascular necrosis of femoral head) Endocrine: Yes: Hypothyroidism Additional Medical History: early glaucoma. cervical and lumbar radiculopathy. avascular necrosis of femoral head. 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 over 50 surgeries for HA. 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 Place of : [facility] History of Recent Travel: No Home Medications - Allergies Allergies/Adverse Reactions: Allergies Allergy/AdvReac Type Severity Reaction Status Date / Time metronidazole [From Flagyl] Allergy Intermediate Swelling Verified 08/15/18 13: 05 amoxicillin Allergy Verified 08/15/18 13:05 lactose AdvReac Verified 08/15/18 13:05 fresh fruit Allergy Vomiting Uncoded 08/15/18 13:05 fresh vegetables Allergy Uncoded 08/15/18 13:05 - Home Medications Home Medications: Ambulatory Orders Cholecalciferol (Vitamin D3) [Vitamin D3] 2,000 unit PO DAILY 11/02/16 Diltiazem HCl [Diltiazem 24Hr Cd] 240 mg PO HS 11/02/16 Levothyroxine [Synthroid -] 25 mcg PO DAILY 11/02/16 Montelukast Na [Singulair -] 10 mg PO HS 11/02/16 Nitroglycerin [Nitrostat] 0.4 mg SL PRN PRN 11/02/16 Sertraline HCl [Zoloft -] 100 mg PO DAILY 11/02/16 Sumatriptan Succinate [Imitrex -] 100 mg PO PRN 11/02/16 Polyethylene Glycol 3350 [Miralax 119 gm Btl -] 17 gm PO BID bottle 11/10/16 Acetaminophen [Tylenol .Regular Strength -] 650 mg PO Q4H PRN #0 tablet Quinapril HCl [Accupril -] 10 mg PO DAILY #30 tablet 12/07/16 Meclizine HCl [Antivert -] 25 mg PO TID PRN 11/05/17 Ondansetron HCl [Zofran] 8 mg PO ONCE PRN 11/05/17 Pregabalin [Lyrica] 25 mg PO TID 11/05/17 Potassium Chloride [K-Dur -] 10 meq PO DAILY 12/02/17 Ranitidine HCl 150 mg PO HS 12/02/17 Vitamin E 1,000 unit PO DAILY 12/02/17 Budesonide/Formeterol Fumarate [SYMBICORT 160/4.5mcg -] 2 puff IH PRN PRN Pantoprazole Sodium [Protonix -] 40 mg PO BID 06/21/18 Dicyclomine HCl [Bentyl -] 10 mg PO BID PRN 08/15/18 Family Disease History - Family Disease History Family Disease History: CA: Father (lung), Mother (breast) Review of Systems - Review of Systems Constitutional: reports: Lethargy, Loss of Appetite, Weakness Eyes: reports: No Symptoms HENT: reports: No Symptoms Neck: reports: No Symptoms Cardiovascular: reports: No Symptoms Respiratory: reports: Cough, Wheezing Gastrointestinal: reports: Abdominal Pain, Diarrhea, Vomiting Musculoskeletal: reports: Back Pain, Joint Pain Physical Exam-GI Vital Signs: Vital Signs Temperature 98.2 F 08/16/18 11:17 Pulse Rate 102 H 08/16/18 11:17 Respiratory Rate 18 08/16/18 11:17 Blood Pressure 123/70 08/16/18 05:55 O2 Sat by Pulse Oximetry (%) 95 08/16/18 11:33 CBC,CMP WBC 5.6 K/mm3 (4.0-10.0) 08/16/18 07:10 RBC 3.68 M/mm3 (3.60-5.2) 08/16/18 07:10 Hgb 10.8 GM/dL (10.7-15.3) 08/16/18 07:10 Hct 34.1 % (32.4-45.2) 08/16/18 07:10 MCV 92.5 fl (80-96) 08/16/18 07:10 MCH 29.4 pg (25.7-33.7) 08/16/18 07:10 MCHC 31.7 g/dl (32.0-36.0) L 08/16/18 07:10 RDW 15.0 % (11.6-15.6) 08/16/18 07:10 Plt Count 253 K/MM3 (134-434) 08/16/18 07:10 MPV 9.5 fl (7.5-11.1) 08/16/18 07:10 Absolute Neuts (auto) 4.5 K/mm3 (1.5-8.0) 08/15/18 14:30 Neutrophils % 77.9 % (42.8-82.8) 08/15/18 14:30 Lymphocytes % 12.4 % (8-40) D 08/15/18 14:30 Monocytes % 6.7 % (3.8-10.2) 08/15/18 14:30 Eosinophils % 2.8 % (0-4.5) 08/15/18 14:30 Basophils % 0.2 % (0-2.0) 08/15/18 14:30 Nucleated RBC % 0 % (0-0) 08/15/18 14:30 Sodium 140 mmol/L (136-145) 08/16/18 07:10 Potassium 3.6 mmol/L (3.5-5.1) 08/16/18 07:10 Chloride 105 mmol/L (98-107) 08/16/18 07:10 Carbon Dioxide 28 mmol/L (21-32) 08/16/18 07:10 Anion Gap 7 MMOL/L (8-16) L 08/16/18 07:10 BUN 12 mg/dL (7-18) 08/16/18 07:10 Creatinine 0.8 mg/dL (0.55-1.3) 08/16/18 07:10 Creat Clearance w eGFR > 60 (>60) 08/16/18 07:10 Random Glucose 80 mg/dL (74-106) 08/16/18 07:10 Lactic Acid 1.5 mmol/L (0.4-2.0) 08/15/18 22:40 Calcium 7.5 mg/dL (8.5-10.1) L 08/16/18 07:10 Phosphorus 4.2 mg/dL (2.5-4.9) 08/16/18 07:10 Magnesium 1.3 mg/dL (1.8-2.4) L 08/16/18 07:10 Total Bilirubin 0.2 mg/dL (0.2-1) 08/16/18 07:10 AST 14 U/L (15-37) L 08/16/18 07:10 ALT 12 U/L (13-61) L 08/16/18 07:10 Alkaline Phosphatase 73 U/L (45-117) 08/16/18 07:10 Troponin I < 0.02 ng/ml (0.00-0.05) 08/15/18 14:30 Total Protein 4.9 g/dl (6.4-8.2) L 08/16/18 07:10 Albumin 2.5 g/dl (3.4-5.0) L 08/16/18 07:10 Lipase 68 U/L (73-393) L 08/15/18 14:30 Current Medications Generic Name Dose Route Start Last Admin Trade Name Freq PRN Reason Stop Dose Admin Acetaminophen 1,000 mg 08/15/18 21:58 08/16/18 17:03 Ofirmev Injection - IVPB 1,000 mg Q6H PRN Administration PAIN LEVEL 1-5 Albuterol Sulfate 1 amp 08/16/18 06:34 Ventolin 0.083% Nebulizer Soln - NEB Q6H PRN SHORT OF BREATH/WHEEZING Budesonide/Formoterol Fumarate 2 puff 08/16/18 10:00 08/16/18 10:38 Symbicort 160/4.5mcg - IH Not Given BID TANA Diltiazem HCl 240 mg 08/16/18 22:00 Cardizem Cd - PO HS TANA Heparin Sodium (Porcine) 5,000 unit 08/15/18 22:45 08/16/18 13:38 Heparin - SQ 5,000 unit TID TANA Administration Sodium Chloride 1,000 mls @ 75 mls/hr 08/15/18 22:00 08/16/18 09:51 Normal Saline - IV 75 mls/hr ASDIR TANA Administration Levofloxacin 250 mg in 50 mls @ 50 mls/hr 08/16/18 11:45 08/16/18 13:38 Levaquin 250 Mg Premixed Ivpb - IVPB 08/19/18 11:44 50 mls/hr DAILY TANA Administration Protocol Levothyroxine Sodium 25 mcg 08/17/18 07:00 Synthroid - PO ACBK TANA Meclizine HCl 25 mg 08/16/18 14:05 Antivert - PO TID PRN DIZZINESS Melatonin 10 mg 08/16/18 01:15 08/16/18 01:16 Melatonin PO 10 mg HS TANA Administration Morphine Sulfate 2 mg 08/16/18 11:33 08/16/18 13:38 Morphine Sulfate IVPUSH 2 mg Q6H PRN Administration PAIN LEVEL 6-10 Ondansetron HCl 4 mg 08/16/18 09:10 Zofran Injection IVPUSH Q6H PRN NAUSEA AND/OR VOMITING Pantoprazole Sodium 40 mg 08/16/18 10:00 08/16/18 09:49 Protonix Iv IVPUSH 40 mg BID TANA Administration Pregabalin 25 mg 08/16/18 14:00 08/16/18 13:51 Lyrica - PO Not Given TID TANA Quinapril HCl 10 mg 08/16/18 11:45 08/16/18 13:47 Accupril - PO Not Given DAILY TANA Sertraline HCl 100 mg 08/17/18 10:00 Zoloft - PO DAILY TANA Constitutional: Yes: Anxious Eyes: Yes: Conjunctiva Clear HENT: Yes: Normocephalic Neck: Yes: Supple Cardiovascular: Yes: Regular Rate and Rhythm, Other (right chest port) Respiratory: Yes: CTA Bilaterally Gastrointestinal Inspection: Yes: Distention, Scars (obliqure RUQ, long midline and right paramedian vertical and RLQ transverse incisions), Other (RLQ pump) ...Auscultate: Yes: Hypoactive Bowel Sounds ...Palpate: Yes: Soft, Other (nontender) ...Percussion: Yes: Tympanitic ...Rectal Exam: Yes: Guaiac Positive (smudge of brown guaiac positve stool, no impaction) Edema: No Labs: CBC, BMP 08/16/18 07:10 08/16/18 07:10 INR, PTT INR 0.97 (0.83-1.09) 08/15/18 14:30 Imaging - Results Cat Scan: Report Reviewed (Vicki Carmen Name: [facility] DEPARTMENT OF RADIOLOGY Phys: Rosalia Britt NP : 1940 Age: 78 Sex: F [facility] Acct: [id number] Loc: [facility] Exam Date: 08/15/18 Status: ANTHONY Borges Unit Number: [id number] EXAM#: TYPE/EXAM: RESULT: [id number] CT/ABDOMEN PELVIS CT WITH CONTR Abdominal pain. History of small bowel obstruction. Rule out small bowel obstruction. CT scan of the abdomen and pelvis following oral and intravenous contrast. Coronal and sagittal reformatted images were obtained 100 cc of Omnipaque 350 was intravenously injected Comparison: 02/12/2018 There are mild bibasal atelectatic changes. The heart is within normal limits in size. There is mild pericardial thickening and questionable trace of pericardial effusion which is nonspecific. Status post cholecystectomy. Evaluation of the liver, spleen and pancreas appear unremarkable. Both adrenal glands and both kidneys remain unremarkable. The stomach is moderately distended with air-fluid level. There is moderate distention of the duodenum. Moderate to marked dilatation of the small bowel loops in the abdomen and pelvis measuring up to 6 cm in diameter. Normal size small bowel loops are present in the right flank. Patient is status post right hemicolectomy. Site of surgical sutures again identified without gross wall thickening. The remainder of the colon is collapsed without wall thickening. Normal size uterus with an approximately 1 cm calcified density suggestive of a calcified fibroid. No free air or free fluid in the abdomen and pelvis Visualized osseous structures appear intact with moderate to marked degenerative disc disease at L4 -L5 and L5-S1 level and mild to moderate chronic compression of L1 superior endplate again seen Impression: Status post right hemicolectomy. Moderate to marked dilatation of the small bowel loops in the entire abdomen measuring up to 6 cm with air-fluid levels and without gross wall thickening consistent with distal small bowel obstruction. Site of obstruction is not clear on this examination. Dilated small bowel loops could not be traced to the site of anastomosis with the colon. Status post right hemicolectomy with surgical sutures seen at the site of anastomosis. Reported By: Reshma Alcala MD 08/15/181920 Rosalia Britt Technologist: Liberty Solorio Transcribed Date/Time: 08/15/181920 Data Keyer: Reshma Alcala Printed Date/Time: By: Signed by: Reshma Alcala Signed on: 15-Aug-2018 19:21) Problem List - Problems (1) Anemia requiring transfusions Assessment/Plan: Suspect bleeding from small bowel vascular ectasias as a contributor. Given that a capsule endoscopy is not an option she can be referred for a double balloon enteroscopy ( Dr Kedar Gamboa at [facility]) after discharge Code(s): D64.9 - ANEMIA, UNSPECIFIED (2) SBO (small bowel obstruction) Assessment/Plan: Suspect SBO due to adhesions but cannot exclude obstruction at the level of anastomotic stricture. Given that she does not want a colonoscopy I have advised a gastrograffin enema when she clears the CT contrast dye. Code(s): K56.609 - UNSP INTESTNL OBST, UNSP TO PARTIAL VERSUS COMPLETE OBST (3) History of colon polyps Code(s): Z86.010 - PERSONAL HISTORY OF COLONIC POLYPS (4) Avascular necrosis of femoral head Code(s): M87.059 - IDIOPATHIC ASEPTIC NECROSIS OF UNSPECIFIED FEMUR (5) Incomplete fixation of cecum Code(s): Q43.3 - CONGENITAL MALFORMATIONS OF INTESTINAL FIXATION (6) History of right hemicolectomy Code(s): Z90.49 - ACQUIRED ABSENCE OF OTHER SPECIFIED PARTS OF DIGESTIVE TRACT (7) Status post appendectomy Code(s): Z90.49 - ACQUIRED ABSENCE OF OTHER SPECIFIED PARTS OF DIGESTIVE TRACT (8) History of cholecystectomy Code(s): Z90.49 - ACQUIRED ABSENCE OF OTHER SPECIFIED PARTS OF DIGESTIVE TRACT (9) Anastomotic stricture of small intestine Code(s): K91.89 - OTH POSTPROCEDURAL COMPLICATIONS AND DISORDERS OF DGSTV SYS (10) Colonic ulcer Code(s): K63.3 - ULCER OF INTESTINE (11) Diverticulosis Code(s): K57.90 - DVRTCLOS OF INTEST, PART UNSP, W/O PERF OR ABSCESS W/O BLEED Qualifiers: Diverticulosis site: diverticulosis of large intestine Diverticulosis bleeding: diverticulosis without bleeding Qualified Code(s): K57.30 - Diverticulosis of large intestine without perforation or abscess without bleeding (12) GERD (gastroesophageal reflux disease) Code(s): K21.9 - GASTRO-ESOPHAGEAL REFLUX DISEASE WITHOUT ESOPHAGITIS (13) GI bleed Code(s): K92.2 - GASTROINTESTINAL HEMORRHAGE, UNSPECIFIED Qualifiers: GI bleed type/associated pathology: melena Qualified Code(s): K92.1 - Melena (14) Non-alcoholic fatty liver disease Assessment/Plan: Will order Fibrosure Code(s): K76.0 - FATTY (CHANGE OF) LIVER, NOT ELSEWHERE CLASSIFIED Assessment/Plan Continue NG suctioning Daily FUA IV fluids Gastrograffin enema when contrast clears Enteroscopy at [facility] after discharge
[2018-08-17] MEDS: PREGABALIN 25 MG CAPSULE PO SCH ×3 (05:19→21:55)
[2018-08-17] MEDS: HEPARIN NA (PORCINE) 5,000 UNITS/ML 1ML VIAL SQ SCH ×3 (05:19→21:56)
[2018-08-17] MEDS: ACETAMINOPHEN 1000 MG/100 ML VIAL (NON FORMULARY) IVPB PRN ×2 (05:45→17:44)
[2018-08-17] MEDS ORDERED: LEVOTHYROXINE NA 25 MCG TABLET (FP) PO SCH (07:00)
[2018-08-17 07:59] LABS: BASO % 0.2 % (0-2.0); EOS % 3.3 % (0-4.5); HEMATOCRIT 34.8 % (32.4-45.2); HEMOGLOBIN 11.1 GM/dL (10.7-15.3); LYMPH % 9.8 % (8-40); MCH 29.4 pg (25.7-33.7); MCHC 31.9 g/dl (32.0-36.0); MEAN CELL VOLUME 92.1 fl (80-96); MEAN PLT VOLUME 8.8 fl (7.5-11.1); MONO % 3.6 % (3.8-10.2); NEUT % 83.1 % (42.8-82.8); PLATELET COUNT 244 K/MM3 (134-434); RBC 3.78 M/mm3 (3.60-5.2); RDW 14.8 % (11.6-15.6); WHITE BLOOD COUNT 5.4 K/mm3 (4.0-10.0)
--- NOTE | 2018-08-17 08:44 | PN ---
Progress Note (short form) - Note Progress Note: Dr. Sosa/ZACARIAS Andres will document today. Looks pale but Hb. stable. Over 1200cc NG output overnite; Lytes and Magnesium not available yet. Dr. Stewart's note seen. Await Dr. Vazquez's review of EKG.
[2018-08-17 09:08] LABS: ALBUMIN 2.6 g/dl (3.4-5.0); ALK PHOS 80 U/L (45-117); ANION GAP 9 MMOL/L (8-16); BILIRUBIN,TOTAL 0.3 mg/dL (0.2-1); BLOOD UREA NITROGEN 6 mg/dL (7-18); CALCIUM 7.7 mg/dL (8.5-10.1); CHLORIDE 102 mmol/L (98-107); CO2 28 mmol/L (21-32); CREATININE 0.6 mg/dL (0.55-1.3); GLUCOSE,RANDOM 71 mg/dL (74-106); POTASSIUM 3.7 mmol/L (3.5-5.1); SGOT/AST 14 U/L (15-37); SGPT/ALT 12 U/L (13-61); SODIUM 139 mmol/L (136-145); TOT PROT 5.2 g/dl (6.4-8.2)
[2018-08-17] MEDS ORDERED: SERTRALINE HCL 50 MG TABLET (FP) PO SCH (10:00)
[2018-08-17] MEDS ORDERED: KCL 10 MEQ IVPB 10 MEQ/100 ML INFUS.BAG IVPB SCH (10:15)
--- NOTE | 2018-08-17 10:19 | CON.CARD ---
Consult Consult Specialty:: cardiology Referred by:: Dr. Rodgers Reason for Consultation:: palpitations - History of Present Illness Chief Complaint: Vomiting History of Present Illness: HPI: 78 year old white female with longstanding history of hypertension, CAD, angina pectoris, hypothyroidism, chronic anemia due to GI blood loss, bronchial asthma, history of migraines and borderline diabetes mellitus. History of recurring intestinal obstruction due to adhesions. Patient was admitted with recurring episodes of vomiting, accompanied by abdominal pain and diarrhea and she also experienced palpitations starting last Wednesday described as rapid heart beat persisting for approximately 10 minutes and continued all day and night until Wednesday morning. Denies having associated chest pain or discomfort, no dyspnea, PND or orthopnea reported. No history of cough or expectoration. PAST HISTORY: 1. As mentioned in the history of present illness. 2. Peptic ulcer disease. 3. Hiatus hernia. 4. Osteoarthritis. 5. Status post pneumonia. 6. History of microscopic GI bleed. SURGICAL HISTORY: 1. Patient states that she has had abdominal surgery 51 times. 2. Status post replacement of right shoulder for a traumatic injury/fracture. 3. Status post internal fixation of the right humerus for traumatic fracture. 4. Status post bilateral cateract extraction. 5. Status post cholecystectomy. 6. Status post appendectomy. SOCIAL HISTORY: , never smoked or drank alcohol. Occasional cup of tea. Has adopted a son and a daughter. FAMILY HISTORY: Father at age 54 due to carcinoma of the lung, was a heavy smoker. Mother at age 60 due to complications of carcinoma of the breast. Has one brother and is not in communication with him for over 20 years. Active Medications Albuterol Sulfate (Ventolin 0.083% Nebulizer Soln -) 1 amp NEB Q6H PRN PRN Reason: SHORT OF BREATH/WHEEZING Budesonide/Formoterol Fumarate (Symbicort 160/4.5mcg -) 2 puff IH BID [facility] Last Admin: 08/16/18 22:13 Dose: Not Given Diltiazem HCl (Cardizem Cd -) 240 mg PO HS [facility] Heparin Sodium (Porcine) (Heparin -) 5,000 unit SQ TID [facility] Last Admin: 08/17/18 05:19 Dose: 5,000 unit Sodium Chloride (Normal Saline -) 1,000 mls @ 75 mls/hr IV ASDIR [facility] Last Admin: 08/16/18 22:11 Dose: 75 mls/hr Levofloxacin (Levaquin 250 Mg Premixed Ivpb -) 250 mg in 50 mls @ 50 mls/hr IVPB DAILY [facility]; Protocol Stop: 08/19/18 11:44 Last Admin: 08/16/18 13:38 Dose: 50 mls/hr Potassium Chloride (Potassium Chloride 10 Meq Premix Ivpb -) 10 meq in 100 mls @ 100 mls/hr IVPB Q60M [facility] Stop: 08/17/18 11:14 Levothyroxine Sodium (Synthroid -) 25 mcg PO ACBK [facility] Meclizine HCl (Antivert -) 25 mg PO TID PRN PRN Reason: DIZZINESS Melatonin (Melatonin) 10 mg PO HS [facility] Last Admin: 08/16/18 22:11 Dose: Not Given Morphine Sulfate (Morphine Sulfate) 2 mg IVPUSH Q6H PRN PRN Reason: PAIN LEVEL 6-10 Last Admin: 08/16/18 22:13 Dose: 2 mg Ondansetron HCl (Zofran Injection) 4 mg IVPUSH Q6H PRN PRN Reason: NAUSEA AND/OR VOMITING Pantoprazole Sodium (Protonix Iv) 40 mg IVPUSH BID [facility] Last Admin: 08/16/18 22:13 Dose: 40 mg Pregabalin (Lyrica -) 25 mg PO TID [facility] Quinapril HCl (Accupril -) 10 mg PO DAILY [facility] Sertraline HCl (Zoloft -) 100 mg PO DAILY [facility] Home Medications included: 1. Imitrex 100 mg PRN 2. Nitrostat 0.4 mg PRN for chest pain. 3. Zantac 150 mg PO Hs. 4. Bentyl 10 mg PO PRN. 5. Tylenol 650 mg 2 tablets Q4h PRN. 6. Miralax 17 grams BID. 7. Vitamin D3 2000 IUs 8. Xanax 1 mg PO PRN. 9. Morphine via intrabdominal pump 10 mg per day (placed and being followed at [facility]) . REVIEW OF SYSTEMS: Constitutional: History of occasional chills. No history of fever or night sweats reported. No history of unintentional weight loss. HEENT: History of migraine headaches and vertigo. No history of diplopia, blurred vision. No history of epistaxis, hoarseness. 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 Cardiovascular: See HPI. Episode of chest pain relieved promptly by sublingual nitroglycerin one week ago. Respiratory: See history of present illness. No recent exacerbation of asthma. No history of cough, expectoration or hemoptysis. No history of recent shortness of breath. Gastrointestinal: See HPI. Chronic diarrhea. Neurological: No history of seizures, syncope, focal weakness. No history of lightheadedness or dizziness. No history of paresthesias. Endocrine: See HPI. Musculoskeletal: History of arthralgias, no history of myalgias. Hematological: History of recurring anemias, requiring iron infusions. Lymphatics: No history of lymphadenopathy or masses. PE: Last Vital Signs Temp Pulse Resp BP Pulse Ox 98.1 F 104 H 18 143/75 97 08/17/18 05:48 08/17/18 05:48 08/17/18 05:48 08/17/18 05:48 08/16/18 22:00 NECK: Supple, no JVD, negative HJR, carotids were equal and upstrokes were normal, no thyromegaly appreciated. HEART: PMI was in the 5th intercostal space, no heaves or thrills, S1 and S2 were normal. No murmurs or gallops were appreciated. LUNGS: Clear on auscultation bilaterally. CHEST: Normal AP diameter, expansion was symmetrical, a port was present in the right upper anterior chest. ABDOMEN: Soft, hard mass in the right quadrant (morphine pump), multiple well healed surgical scars, no hepatosplenomegaly appreciated. Bowel sounds were present, no bruits heard. EXTREMITIES: No calf tenderness or dependent edema. Pulses are normal. EKG IMPRESSION: Sinus rhythm with occasional single supraventricular premature beats, non-diagnostic Q waves in leads II/III/AVF with early transition in V1 and V2, possibility of infro-posterior myocardial infarction of indeterminate age cannot be excluded. ST and T wave abnormalities involving the right precardial leads. No previous ECG was available for comparison. Laboratory Results - last 24 hr 08/17/18 08/17/18 08/17/18 07:15 07:15 07:15 WBC 5.4 RBC 3.78 Hgb 11.1 Hct 34.8 MCV 92.1 MCH 29.4 MCHC 31.9 L RDW 14.8 Plt Count 244 MPV 8.8 Absolute Neuts (auto) 4.5 Neutrophils % 83.1 H Lymphocytes % 9.8 D Monocytes % 3.6 L Eosinophils % 3.3 Basophils % 0.2 Nucleated RBC % 0 Sodium 139 Potassium 3.7 Chloride 102 Carbon Dioxide 28 Anion Gap 9 BUN 6 L Creatinine 0.6 Creat Clearance w eGFR > 60 Random Glucose 71 L Calcium 7.7 L Magnesium 2.0 Ferritin 74.8 Total Bilirubin 0.3 AST 14 L ALT 12 L Alkaline Phosphatase 80 C-Reactive Protein < 0.3 Total Protein 5.2 L Albumin 2.6 L Chest X-ray: As reviewed by Dr. Alcala reports interval insertion of the right internal jugular central line with its tip in the right superior vena cava. No pneumothorax or acute lung disease present. ASSESSMENT/PLAN Impression: 1. Palpitations, etiology: a. Secondary to arrhythmias, type to be determined. 2. Acute intestinal obstruction. 3. Hypertension, currently normotensive. 4. Hypothyroidism, on replacement therapy. 5. Bronchial asthma. 6. Chronic migraines. 7. History of borderline diabetes mellitus. 8. History of iron deficiency anemia, presently corrected. 9. Coronary artery disease, angina pectoris, presently stable. 10. Hypercholesterolemia. Recommendations: 1. Holter monitor. 2. Echocardiogram for evaluation of valvular morphology and LV function. 3. If patient has recurrence of chest pains, consider topical nitroglycerin. 4. Follow up ECG. Prognosis: Guarded. Documentation prepared by Nicol Patel, acting as a medical doctor nuclear medicine for Michele Decker MD. - Past Medical History DENTAL ASSISTANT MEDICAL ASSISTANT: Yes: Migraine Cardio/Vascular: Yes: CAD, HTN, Other (MVP) Pulmonary: Yes: Asthma, Bronchitis Gastrointestinal: Yes: Constipation, Diverticulosis, Gastritis, GERD, Hiatal Hernia, Irritable Bowel Disease, Peptic Ulcer Disease, Other (colon polyps) Hepatobiliary: Yes: Other (NAFLD, papillary stenosis @ ERCP with Dr Amaro ) Renal/: Yes: UTI Psych: Yes: Addictions (narcotic dependence, has spinal narcotic infusion pump) , Anxiety Musculoskeletal: Yes: Chronic low back pain (cervical and lumbar radiculopathy) , Osteoarthritis Rheumatology: Yes: Other (avascular necrosis of femoral head) Endocrine: Yes: Hypothyroidism Additional Medical History: early glaucoma. cervical and lumbar radiculopathy. avascular necrosis of femoral head. 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 over 50 surgeries for HA. 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 History of Recent Travel: No Home Medications - Allergies Allergies/Adverse Reactions: Allergies Allergy/AdvReac Type Severity Reaction Status Date / Time metronidazole [From Flagyl] Allergy Intermediate Swelling Verified 08/15/18 13: 05 amoxicillin Allergy Verified 08/15/18 13:05 lactose AdvReac Verified 08/15/18 13:05 fresh fruit Allergy Vomiting Uncoded 08/15/18 13:05 fresh vegetables Allergy Uncoded 08/15/18 13:05 - Home Medications Home Medications: Ambulatory Orders Cholecalciferol (Vitamin D3) [Vitamin D3] 2,000 unit PO DAILY 11/02/16 Diltiazem HCl [Diltiazem 24Hr Cd] 240 mg PO HS 11/02/16 Levothyroxine [Synthroid -] 25 mcg PO DAILY 11/02/16 Montelukast Na [Singulair -] 10 mg PO HS 11/02/16 Nitroglycerin [Nitrostat] 0.4 mg SL PRN PRN 11/02/16 Sertraline HCl [Zoloft -] 100 mg PO DAILY 11/02/16 Sumatriptan Succinate [Imitrex -] 100 mg PO PRN 11/02/16 Polyethylene Glycol 3350 [Miralax 119 gm Btl -] 17 gm PO BID bottle 11/10/16 Acetaminophen [Tylenol .Regular Strength -] 650 mg PO Q4H PRN #0 tablet Quinapril HCl [Accupril -] 10 mg PO DAILY #30 tablet 12/07/16 Meclizine HCl [Antivert -] 25 mg PO TID PRN 11/05/17 Ondansetron HCl [Zofran] 8 mg PO ONCE PRN 11/05/17 Pregabalin [Lyrica] 25 mg PO TID 11/05/17 Potassium Chloride [K-Dur -] 10 meq PO DAILY 12/02/17 Ranitidine HCl 150 mg PO HS 12/02/17 Vitamin E 1,000 unit PO DAILY 12/02/17 Budesonide/Formeterol Fumarate [SYMBICORT 160/4.5mcg -] 2 puff IH PRN PRN Pantoprazole Sodium [Protonix -] 40 mg PO BID 06/21/18 Dicyclomine HCl [Bentyl -] 10 mg PO BID PRN 08/15/18 Family Disease History - Family Disease History Family Disease History: CA: Father (lung), Mother (breast) Vital Signs: Vital Signs Temperature 98.1 F 08/17/18 05:48 Pulse Rate 104 H 08/17/18 05:48 Respiratory Rate 18 08/17/18 05:48 Blood Pressure 143/75 08/17/18 05:48 O2 Sat by Pulse Oximetry (%) 97 08/16/18 22:00 - Other Data Labs, Other Data: CBC, BMP 08/17/18 07:15 08/17/18 07:15 INR, PTT INR 0.97 (0.83-1.09) 08/15/18 14:30 Problem List - Problems (1) Hyperlipidemia Code(s): E78.5 - HYPERLIPIDEMIA, UNSPECIFIED (2) Angina at rest Code(s): I20.8 - OTHER FORMS OF ANGINA PECTORIS (3) HTN (hypertension) Code(s): I10 - ESSENTIAL (PRIMARY) HYPERTENSION Qualifiers: Hypertension type: essential hypertension Qualified Code(s): I10 - Essential (primary) hypertension (4) Hypothyroid Code(s): E03.9 - HYPOTHYROIDISM, UNSPECIFIED Qualifiers: Hypothyroidism type: unspecified Qualified Code(s): E03.9 - Hypothyroidism , unspecified
--- NOTE | 2018-08-17 10:22 | PN ---
Progress Note, Physician Chief Complaint: Pt lying in bed in no acute distress. reports feeling better after ngt. Denies any chest pain, sob, n/v - Current Medication List Current Medications: Active Medications Albuterol Sulfate (Ventolin 0.083% Nebulizer Soln -) 1 amp NEB Q6H PRN PRN Reason: SHORT OF BREATH/WHEEZING Budesonide/Formoterol Fumarate (Symbicort 160/4.5mcg -) 2 puff IH BID [facility] Last Admin: 08/16/18 22:13 Dose: Not Given Diltiazem HCl (Cardizem Cd -) 240 mg PO [facility] Heparin Sodium (Porcine) (Heparin -) 5,000 unit SQ TID [facility] Last Admin: 08/17/18 05:19 Dose: 5,000 unit Sodium Chloride (Normal Saline -) 1,000 mls @ 75 mls/hr IV ASDIR [facility] Last Admin: 08/16/18 22:11 Dose: 75 mls/hr Levofloxacin (Levaquin 250 Mg Premixed Ivpb -) 250 mg in 50 mls @ 50 mls/hr IVPB DAILY [facility]; Protocol Stop: 08/19/18 11:44 Last Admin: 08/16/18 13:38 Dose: 50 mls/hr Potassium Chloride (Potassium Chloride 10 Meq Premix Ivpb -) 10 meq in 100 mls @ 100 mls/hr IVPB Q60M [facility] Stop: 08/17/18 11:14 Levothyroxine Sodium (Synthroid -) 25 mcg PO ACBK [facility] Meclizine HCl (Antivert -) 25 mg PO TID PRN PRN Reason: DIZZINESS Melatonin (Melatonin) 10 mg PO [facility] Last Admin: 08/16/18 22:11 Dose: Not Given Morphine Sulfate (Morphine Sulfate) 2 mg IVPUSH Q6H PRN PRN Reason: PAIN LEVEL 6-10 Last Admin: 08/16/18 22:13 Dose: 2 mg Ondansetron HCl (Zofran Injection) 4 mg IVPUSH Q6H PRN PRN Reason: NAUSEA AND/OR VOMITING Pantoprazole Sodium (Protonix Iv) 40 mg IVPUSH BID [facility] Last Admin: 08/16/18 22:13 Dose: 40 mg Pregabalin (Lyrica -) 25 mg PO TID [facility] Quinapril HCl (Accupril -) 10 mg PO DAILY [facility] Sertraline HCl (Zoloft -) 100 mg PO DAILY [facility] - Objective Vital Signs: Vital Signs Temperature 98.1 F 08/17/18 05:48 Pulse Rate 104 H 08/17/18 05:48 Respiratory Rate 18 08/17/18 05:48 Blood Pressure 143/75 08/17/18 05:48 O2 Sat by Pulse Oximetry (%) 97 08/16/18 22:00 Constitutional: Yes: Well Nourished, No Distress, Calm Cardiovascular: Yes: WNL, Regular Rate and Rhythm Respiratory: Yes: WNL, Regular, CTA Bilaterally. No: Accessory Muscle Use, Tachypnea, Wheezes Gastrointestinal: Yes: Soft, Abdomen, Obese, Hypoactive Bowel Sounds, Other ( NGT to LCWS). No: Distention, Tenderness, Vomiting Genitourinary: Yes: WNL Musculoskeletal: Yes: WNL Extremities: Yes: WNL Edema: No Neurological: Yes: WNL, Alert, Oriented Psychiatric: Yes: WNL, Alert, Oriented Labs: CBC, BMP 08/17/18 07:15 08/17/18 07:15 INR, PTT INR 0.97 (0.83-1.09) 08/15/18 14:30 Assessment/Plan (1) SBO (small bowel obstruction) Assessment/Plan: conservative management kub this am- improving obstruction NGT to LCWS- copious output NPO, IVF ambulate as tolerated surgery following Code(s): K56.609 - UNSP INTESTNL OBST, UNSP TO PARTIAL VERSUS COMPLETE OBST (2) UTI (urinary tract infection) Assessment/Plan: UA+, UC pending Levaquin day 2 Code(s): N39.0 - URINARY TRACT INFECTION, SITE NOT SPECIFIED Qualifiers: Urinary tract infection type: acute cystitis Hematuria presence: with hematuria Qualified Code(s): N30.01 - Acute cystitis with hematuria (3) HTN (hypertension) Assessment/Plan: controlled cardizem, quinapril Code(s): I10 - ESSENTIAL (PRIMARY) HYPERTENSION Qualifiers: Hypertension type: essential hypertension Qualified Code(s): I10 - Essential (primary) hypertension (4) Hypothyroid Assessment/Plan: stable continue levothyroxine Code(s): E03.9 - HYPOTHYROIDISM, UNSPECIFIED Qualifiers: Hypothyroidism type: unspecified Qualified Code(s): E03.9 - Hypothyroidism , unspecified (5) Asthma Assessment/Plan: stable, continue current management Code(s): J45.909 - UNSPECIFIED ASTHMA, UNCOMPLICATED (6) Vertigo Assessment/Plan: stable continue meclizine prn Code(s): R42 - DIZZINESS AND GIDDINESS (7) GERD (gastroesophageal reflux disease) Assessment/Plan: EGD on 12/03/17 revealed gastritis continue protonix Code(s): K21.9 - GASTRO-ESOPHAGEAL REFLUX DISEASE WITHOUT ESOPHAGITIS (8) Anastomotic stricture of small intestine Assessment/Plan: s/p balloon dilation,perianastomotic stricture, 11/2017 Code(s): K91.89 - OTH POSTPROCEDURAL COMPLICATIONS AND DISORDERS OF DGSTV SYS (9) Anemia Assessment/Plan: stable, baseline hg around 10 GI consult appreciated- suspect bleeding from small bowel vascular ectasias, plan for double balloon enteroscopy at [facility] [place] [facility] upon d/c Code(s): D64.9 - ANEMIA, UNSPECIFIED Qualifiers: Anemia type: iron deficiency (10) Chronic bilateral low back pain Assessment/Plan: controlled, followed by neurologist [facility] implanted morphine pump in ruq, active Code(s): M54.5 - LOW BACK PAIN; G89.29 - OTHER CHRONIC PAIN (11) Chronic pain Assessment/Plan: as above Code(s): G89.29 - OTHER CHRONIC PAIN (12) Hypokalemia Assessment/Plan: K3.7 kcl iv 10meq x 1 Code(s): E87.6 - HYPOKALEMIA (13) Hypomagnesemia Assessment/Plan: improved Code(s): E83.42 - HYPOMAGNESEMIA
--- NOTE | 2018-08-17 11:27 | PN ---
Progress Note, Physician History of Present Illness: 77 yo female PMH diverticular disease, chronic abdominal pain, morphine pump, colitis, gastrointestinal bleed, diarrhea presented to the emergency department reporting abdominal pain that started 1 week ago. passing gas and stool. - Current Medication List Current Medications: Active Medications Albuterol Sulfate (Ventolin 0.083% Nebulizer Soln -) 1 amp NEB Q6H PRN PRN Reason: SHORT OF BREATH/WHEEZING Budesonide/Formoterol Fumarate (Symbicort 160/4.5mcg -) 2 puff IH BID [facility] Last Admin: 08/16/18 22:13 Dose: Not Given Diltiazem HCl (Cardizem Cd -) 240 mg PO HS [facility] Heparin Sodium (Porcine) (Heparin -) 5,000 unit SQ TID [facility] Last Admin: 08/17/18 05:19 Dose: 5,000 unit Sodium Chloride (Normal Saline -) 1,000 mls @ 75 mls/hr IV ASDIR [facility] Last Admin: 08/16/18 22:11 Dose: 75 mls/hr Levofloxacin (Levaquin 250 Mg Premixed Ivpb -) 250 mg in 50 mls @ 50 mls/hr IVPB DAILY [facility]; Protocol Stop: 08/19/18 11:44 Last Admin: 08/16/18 13:38 Dose: 50 mls/hr Levothyroxine Sodium (Synthroid -) 25 mcg PO ACBK [facility] Meclizine HCl (Antivert -) 25 mg PO TID PRN PRN Reason: DIZZINESS Melatonin (Melatonin) 10 mg PO HS [facility] Last Admin: 08/16/18 22:11 Dose: Not Given Morphine Sulfate (Morphine Sulfate) 2 mg IVPUSH Q6H PRN PRN Reason: PAIN LEVEL 6-10 Last Admin: 08/16/18 22:13 Dose: 2 mg Ondansetron HCl (Zofran Injection) 4 mg IVPUSH Q6H PRN PRN Reason: NAUSEA AND/OR VOMITING Pantoprazole Sodium (Protonix Iv) 40 mg IVPUSH BID [facility] Last Admin: 08/16/18 22:13 Dose: 40 mg Pregabalin (Lyrica -) 25 mg PO TID [facility] Quinapril HCl (Accupril -) 10 mg PO DAILY [facility] Sertraline HCl (Zoloft -) 100 mg PO DAILY [facility] - Objective Vital Signs: Vital Signs Temperature 98.1 F 08/17/18 05:48 Pulse Rate 104 H 08/17/18 05:48 Respiratory Rate 18 08/17/18 05:48 Blood Pressure 143/75 08/17/18 05:48 O2 Sat by Pulse Oximetry (%) 97 08/16/18 22:00 Intake & Output 08/17/18 08/18/18 08/18/18 23:59 07:59 15:59 Intake Total 0 1000 Output Total 200 400 Balance -200 600 Weight 192 lb Intake: IV 900 Normal Saline - 1,000 ml 900 @ 75 mls/hr IV ASDIR [facility] Rx#:[id number] IVPB 100 Oral 0 Output: Gastric Drainage 200 400 Other: Voiding Method Bedside Commode Bowel Movement No Height 5 ft 3 in Body Mass Index (BMI) 34.0 Constitutional: Yes: Well Nourished, No Distress, Calm, Obese Eyes: Yes: Conjunctiva Clear, EOM Intact HENT: Yes: Atraumatic, Normocephalic, Other (NGT in place and draingaing) Cardiovascular: Yes: Regular Rate and Rhythm, S1, S2 Respiratory: Yes: Regular, CTA Bilaterally Gastrointestinal: Yes: Normal Bowel Sounds, Soft, Abdomen, Obese, Distention. No: Tenderness ...Rectal Exam: Yes: Deferred Genitourinary: No: CVA Tenderness - Left, CVA Tenderness - Right Musculoskeletal: No: Muscle Pain, Muscle Weakness Extremities: No: Cyanosis, Deformity Edema: No Peripheral Pulses WNL: Yes Peripheral Pulses: Left Radial: 2+, Right Radial: 2+, Left Doralis Pedis: 2+, Right Dorsalis Pedis: 2+ Neurological: Yes: Alert, Oriented Psychiatric: Yes: Alert, Oriented Labs: CBC, BMP 08/17/18 07:15 08/17/18 07:15 INR, PTT INR 0.97 (0.83-1.09) 08/15/18 14:30 Problem List - Problems (1) Partial small bowel obstruction Assessment/Plan: 77yo female MMP with recurrent partial SBO, No acute surgical intervention is indicated. Passing BM and flatus now. NGT minimal drainage 600 total in 2 days. Passin BM and soft stool NPO and IVF hydration NGT decompression antiemetic therapy Adequate analgesia serial abdominal xrays will follow for serial exams Code(s): K56.600 - PARTIAL INTESTINAL OBSTRUCTION, UNSPECIFIED TO CAUSE (2) Anastomotic stricture of small intestine Code(s): K91.89 - OTH POSTPROCEDURAL COMPLICATIONS AND DISORDERS OF DGSTV SYS (3) Chronic bilateral low back pain Code(s): M54.5 - LOW BACK PAIN; G89.29 - OTHER CHRONIC PAIN Qualifiers: Sciatica presence: without sciatica Qualified Code(s): M54.5 - Low back pain; G89.29 - Other chronic pain (4) Diverticulosis Code(s): K57.90 - DVRTCLOS OF INTEST, PART UNSP, W/O PERF OR ABSCESS W/O BLEED Qualifiers: Diverticulosis site: diverticulosis of large intestine Diverticulosis bleeding: diverticulosis without bleeding Qualified Code(s): K57.30 - Diverticulosis of large intestine without perforation or abscess without bleeding (5) Stricture intestinal Code(s): K56.699 - OTHER INTESTNL OBST UNSP TO PARTIAL VERSUS COMPLETE OBST (6) Asthma Code(s): J45.909 - UNSPECIFIED ASTHMA, UNCOMPLICATED Qualifiers: Asthma severity: moderate Asthma persistence: persistent Asthma complication type: uncomplicated Qualified Code(s): J45.40 - Moderate persistent asthma, uncomplicated (7) Chronic pain Code(s): G89.29 - OTHER CHRONIC PAIN Qualifiers: Chronic pain type: chronic pain syndrome Qualified Code(s): G89.4 - Chronic pain syndrome (8) HTN (hypertension) Code(s): I10 - ESSENTIAL (PRIMARY) HYPERTENSION Qualifiers: Hypertension type: essential hypertension Qualified Code(s): I10 - Essential (primary) hypertension (9) Hypothyroid Code(s): E03.9 - HYPOTHYROIDISM, UNSPECIFIED Qualifiers: Hypothyroidism type: unspecified Qualified Code(s): E03.9 - Hypothyroidism , unspecified
[2018-08-17] MEDS ORDERED: PT OWN MED DRAWER 7, Y5N ONE ×3 (11:44→21:01)
[2018-08-17] MEDS: QUINAPRIL HCL 10 MG TABLET (FP) PO SCH (12:06)
[2018-08-17] MEDS: PANTOPRAZOLE SODIUM 40 MG VIAL IVPUSH SCH ×2 (12:08→21:56)
[2018-08-17] MEDS: BUDESONIDE/FORMETEROL FUMARATE 160/4.5 mcg INHALER IH SCH ×2 (12:09→21:59)
[2018-08-17] MEDS: SERTRALINE HCL 50 MG TABLET (FP) PO SCH (12:10)
[2018-08-17] MEDS: ONDANSETRON 4 MG/2 ML VIAL IVPUSH PRN ×2 (12:55→20:23)
[2018-08-17] MEDS: MORPHINE SULFATE 2 MG/ML VIAL IVPUSH PRN (12:55)
--- NOTE | 2018-08-17 13:28 | ECHO ---
Name: GIOVANI MEDINA Exam:Adult Echocardiogram Study Date: 08/17/2018 11:19 AM Age: 78 yrs Reason For Study: Abnormal Ekg Height: 63 in Weight: 192 lb BSA: 1.9 m2 MMode/2D Measurements & Calculations IVSd: 0.88 cm LA dimension: 3.8 cm LVIDd: 4.6 cm LVIDs: 3.3 cm LVPWd: 0.86 cm EDV(Teich): 96.1 ml ESV(Teich): 44.5 ml Doppler Measurements & Calculations MV E max gigi: 48.6 cm/sec Med Peak E' Gigi: 16.7 cm/sec MV A max gigi: 109.5 cm/sec Med E/e': 2.9 MV E/A: 0.44 Lat Peak E' Gigi: 14.1 cm/sec Lat E/e': 3.4 Procedure The study was technically difficult with many images being suboptimal in quality. Left Ventricle The left ventricular size, thickness and function are normal. The left ventricular ejection fraction is normal. Regional wall motion abnormalities cannot be excluded due to limited visualization. Right Ventricle The right ventricle is normal in size and function. Atria Normal left and right atrial size and function. Mitral Valve The mitral valve is not well visualized. There is no mitral valve stenosis. There is trace to mild mi tral regurgitation. Tricuspid Valve The tricuspid valve is not well visualized. There is no tricuspid stenosis. There was insufficient TR detected to calculate RV systolic pressure. Aortic Valve The aortic valve is not well visualized. No hemodynamically significant valvular aortic stenosis. No aortic regurgitation is present. Pulmonic Valve The pulmonic valve is not well visualized. Great Vessels The aortic root is not well visualized. Pericardium/Pleura There is no pericardial effusion. Interpretation Summary The left ventricular ejection fraction is normal. The left ventricular size, thickness and function are normal Regional wall motion abnormalities cannot be excluded due to limited visualization. There is trace to mild mitral regurgitation. There was insufficient TR detected to calculate RV systolic pressure. The study was technically difficult with many images being suboptimal in quality. MD Bossman Francis 08/17/2018 01:27 PM
[2018-08-17] MEDS ORDERED: ACETAMINOPHEN 325 MG TABLET (FP) PO PRN (16:53)
[2018-08-17] MEDS: MELATONIN 5 MG TABLETS PO SCH (21:55)
[2018-08-18] MEDS: ACETAMINOPHEN 1000 MG/100 ML VIAL (NON FORMULARY) IVPB PRN ×3 (00:30→17:43)
[2018-08-18] MEDS: SODIUM CHLORIDE 1,000 ML IV SCH (04:00)
[2018-08-18] MEDS: HEPARIN NA (PORCINE) 5,000 UNITS/ML 1ML VIAL SQ SCH ×3 (06:23→22:03)
[2018-08-18] MEDS: PREGABALIN 25 MG CAPSULE PO SCH ×3 (06:23→22:03)
[2018-08-18] MEDS: LEVOTHYROXINE NA 25 MCG TABLET (FP) PO SCH (06:26)
[2018-08-18] MEDS: ONDANSETRON 4 MG/2 ML VIAL IVPUSH PRN (07:41)
[2018-08-18 08:01] LABS: BASO % 0.3 % (0-2.0); EOS % 6.4 % (0-4.5); HEMATOCRIT 34.9 % (32.4-45.2); HEMOGLOBIN 10.9 GM/dL (10.7-15.3); LYMPH % 20.2 % (8-40); MCH 29.1 pg (25.7-33.7); MCHC 31.2 g/dl (32.0-36.0); MEAN CELL VOLUME 93.3 fl (80-96); MEAN PLT VOLUME 8.9 fl (7.5-11.1); MONO % 6.4 % (3.8-10.2); NEUT % 66.7 % (42.8-82.8); PLATELET COUNT 264 K/MM3 (134-434); RBC 3.74 M/mm3 (3.60-5.2); RDW 14.8 % (11.6-15.6); WHITE BLOOD COUNT 5.9 K/mm3 (4.0-10.0)
--- NOTE | 2018-08-18 08:32 | PN ---
Progress Note (short form) - Note Progress Note: Dr. Sosa/[employer] Dmitry to document today. Surprisingly some nausea and wretching. For repeat Abdominal Xray. Await C/S for Urine C/S.
--- NOTE | 2018-08-18 08:32 | PN ---
Progress Note, Physician Chief Complaint: abdominal pain and vomiting History of Present Illness: 77 yo female PMH diverticular disease, chronic abdominal pain, morphine pump, colitis, gastrointestinal bleed, diarrhea presented to the emergency department reporting abdominal pain that started 1 week ago. passing gas and stool. - Current Medication List Current Medications: Active Medications Acetaminophen (Ofirmev Injection -) 1,000 mg IVPB Q6H PRN PRN Reason: PAIN LEVEL 1-5 Last Admin: 08/18/18 00:30 Dose: 1,000 mg Albuterol Sulfate (Ventolin 0.083% Nebulizer Soln -) 1 amp NEB Q6H PRN PRN Reason: SHORT OF BREATH/WHEEZING Budesonide/Formoterol Fumarate (Symbicort 160/4.5mcg -) 2 puff IH BID [facility] Last Admin: 08/17/18 21:59 Dose: Not Given Diltiazem HCl (Cardizem Cd -) 240 mg PO HS [facility] Last Admin: 08/17/18 21:56 Dose: 240 mg Heparin Sodium (Porcine) (Heparin -) 5,000 unit SQ TID [facility] Last Admin: 08/18/18 06:23 Dose: 5,000 unit Sodium Chloride (Normal Saline -) 1,000 mls @ 75 mls/hr IV ASDIR [facility] Last Admin: 08/18/18 04:00 Dose: 75 mls/hr Levofloxacin (Levaquin 250 Mg Premixed Ivpb -) 250 mg in 50 mls @ 50 mls/hr IVPB DAILY [facility]; Protocol Stop: 08/19/18 11:44 Last Admin: 08/17/18 12:06 Dose: 50 mls/hr Levothyroxine Sodium (Synthroid -) 25 mcg PO ACBK [facility] Last Admin: 08/18/18 06:26 Dose: 25 mcg Meclizine HCl (Antivert -) 25 mg PO TID PRN PRN Reason: DIZZINESS Melatonin (Melatonin) 10 mg PO HS [facility] Last Admin: 08/17/18 21:55 Dose: 10 mg Morphine Sulfate (Morphine Sulfate) 2 mg IVPUSH Q6H PRN PRN Reason: PAIN LEVEL 6-10 Last Admin: 08/17/18 12:55 Dose: 2 mg Ondansetron HCl (Zofran Injection) 4 mg IVPUSH Q6H PRN PRN Reason: NAUSEA AND/OR VOMITING Last Admin: 08/18/18 07:41 Dose: 4 mg Pantoprazole Sodium (Protonix Iv) 40 mg IVPUSH BID [facility] Last Admin: 08/17/18 21:56 Dose: 40 mg Pregabalin (Lyrica -) 25 mg PO TID [facility] Last Admin: 08/18/18 06:23 Dose: 25 mg Quinapril HCl (Accupril -) 10 mg PO DAILY [facility] Last Admin: 08/17/18 12:06 Dose: 10 mg Sertraline HCl (Zoloft -) 100 mg PO DAILY [facility] Last Admin: 08/17/18 12:10 Dose: 100 mg - Objective Vital Signs: Vital Signs Temperature 97.6 F 08/18/18 08:31 Pulse Rate 102 H 08/18/18 08:31 Respiratory Rate 20 08/18/18 08:31 Blood Pressure 129/63 08/18/18 08:31 O2 Sat by Pulse Oximetry (%) 94 L 08/17/18 22:00 Vital Signs Period Temp Pulse Resp BP Sys/Ahn Pulse Ox Last 24 Hr 97.6 F-98.3 F 100-109 18-20 125-136/60-68 94-96 Intake & Output 08/17/18 08/18/18 08/18/18 23:59 07:59 15:59 Intake Total 0 1000 Output Total 200 400 Balance -200 600 Weight 192 lb Intake: IV 900 Normal Saline - 1,000 ml 900 @ 75 mls/hr IV ASDIR [facility] Rx#:[id number] IVPB 100 Oral 0 Output: Gastric Drainage 200 400 Other: Voiding Method Bedside Commode Bowel Movement No Height 5 ft 3 in Body Mass Index (BMI) 34.0 Constitutional: Yes: Well Nourished, No Distress, Calm, Obese Eyes: Yes: Conjunctiva Clear, EOM Intact HENT: Yes: Atraumatic, Normocephalic Neck: Yes: Supple, Trachea Midline Cardiovascular: Yes: Regular Rate and Rhythm, S1, S2 Respiratory: Yes: Regular, CTA Bilaterally Gastrointestinal: Yes: Normal Bowel Sounds, Soft, Abdomen, Obese, Distention. No: Tenderness Genitourinary: No: CVA Tenderness - Left, CVA Tenderness - Right Extremities: No: Cool, Cyanosis Edema: No Peripheral Pulses WNL: Yes Peripheral Pulses: Left Radial: 2+, Right Radial: 2+, Left Doralis Pedis: 2+, Right Dorsalis Pedis: 2+ Integumentary: No: Jaundice, Pressure Ulcer, Rash Neurological: Yes: Alert, Oriented Psychiatric: Yes: Alert, Oriented Labs: CBC, BMP 08/18/18 07:00 INR, PTT INR 0.97 (0.83-1.09) 08/15/18 14:30 Problem List - Problems (1) Partial small bowel obstruction Assessment/Plan: 77yo female MMP with recurrent partial SBO, No acute surgical intervention is indicated. Passing BM and flatus now. NGT minimal drainage 600 total in 2 days. Passin BM and soft stool NPO and IVF hydration NGT decompression antiemetic therapy Adequate analgesia serial abdominal xrays will follow for serial exams Code(s): K56.600 - PARTIAL INTESTINAL OBSTRUCTION, UNSPECIFIED TO CAUSE (2) Anastomotic stricture of small intestine Code(s): K91.89 - OTH POSTPROCEDURAL COMPLICATIONS AND DISORDERS OF DGSTV SYS (3) Chronic bilateral low back pain Code(s): M54.5 - LOW BACK PAIN; G89.29 - OTHER CHRONIC PAIN Qualifiers: Sciatica presence: without sciatica Qualified Code(s): M54.5 - Low back pain; G89.29 - Other chronic pain (4) Diverticulosis Code(s): K57.90 - DVRTCLOS OF INTEST, PART UNSP, W/O PERF OR ABSCESS W/O BLEED Qualifiers: Diverticulosis site: diverticulosis of large intestine Diverticulosis bleeding: diverticulosis without bleeding Qualified Code(s): K57.30 - Diverticulosis of large intestine without perforation or abscess without bleeding (5) Stricture intestinal Code(s): K56.699 - OTHER INTESTNL OBST UNSP TO PARTIAL VERSUS COMPLETE OBST (6) Asthma Code(s): J45.909 - UNSPECIFIED ASTHMA, UNCOMPLICATED Qualifiers: Asthma severity: moderate Asthma persistence: persistent Asthma complication type: uncomplicated Qualified Code(s): J45.40 - Moderate persistent asthma, uncomplicated (7) Chronic pain Code(s): G89.29 - OTHER CHRONIC PAIN Qualifiers: Chronic pain type: chronic pain syndrome Qualified Code(s): G89.4 - Chronic pain syndrome (8) HTN (hypertension) Code(s): I10 - ESSENTIAL (PRIMARY) HYPERTENSION Qualifiers: Hypertension type: essential hypertension Qualified Code(s): I10 - Essential (primary) hypertension (9) Hypothyroid Code(s): E03.9 - HYPOTHYROIDISM, UNSPECIFIED Qualifiers: Hypothyroidism type: unspecified Qualified Code(s): E03.9 - Hypothyroidism , unspecified
[2018-08-18 08:33] LABS: ANION GAP 16 MMOL/L (8-16); BLOOD UREA NITROGEN 7 mg/dL (7-18); CHLORIDE 101 mmol/L (98-107); CO2 20 mmol/L (21-32); CREATININE 0.5 mg/dL (0.55-1.3); GLUCOSE,RANDOM 50 mg/dL (74-106); MAGNESIUM 1.5 mg/dL (1.8-2.4); PHOSPHOROUS 3.4 mg/dL (2.5-4.9); POTASSIUM 3.6 mmol/L (3.5-5.1); SODIUM 138 mmol/L (136-145)
[2018-08-18] MEDS: PANTOPRAZOLE SODIUM 40 MG VIAL IVPUSH SCH ×2 (09:08→22:04)
[2018-08-18] MEDS: QUINAPRIL HCL 10 MG TABLET (FP) PO SCH (09:09)
[2018-08-18] MEDS: SERTRALINE HCL 50 MG TABLET (FP) PO SCH (09:09)
[2018-08-18] MEDS: BUDESONIDE/FORMETEROL FUMARATE 160/4.5 mcg INHALER IH SCH ×2 (09:24→22:05)
--- NOTE | 2018-08-18 11:08 | EKG ---
Test Reason : Blood Pressure : / mmHG Vent. Rate : 094 BPM Atrial Rate : 094 BPM P-R Int : 148 ms QRS Dur : 098 ms QT Int : 378 ms P-R-T Axes : 055 001 017 degrees QTc Int : 472 ms NORMAL SINUS RHYTHM LOW VOLTAGE QRS POSSIBLE LATERAL INFARCT , AGE UNDETERMINED CANNOT RULE OUT INFERIOR INFARCT (CITED ON OR BEFORE 15-AUG-2018) ABNORMAL ECG WHEN COMPARED WITH ECG OF 15-AUG-2018 20:11, PREMATURE ATRIAL COMPLEXES ARE NO LONGER PRESENT Confirmed by WOJCIECH VALENCIA MD ([id number]) on 08/18/2018 11:07:30 AM Referred By: ELIZA SANABRIA Confirmed By:WOJCIECH VALENCIA MD
[2018-08-18] MEDS ORDERED: KCL 10 MEQ IVPB 10 MEQ/100 ML INFUS.BAG IVPB SCH (11:15)
--- NOTE | 2018-08-18 11:15 | PN ---
Progress Note, Physician Chief Complaint: Pt lying in bed in no acute distress. reports feeling very weak. also c/o nausea today. Denies any chest pain, sob, n/v - Current Medication List Current Medications: Active Medications Acetaminophen (Ofirmev Injection -) 1,000 mg IVPB Q6H PRN PRN Reason: PAIN LEVEL 1-5 Last Admin: 08/18/18 09:09 Dose: 1,000 mg Albuterol Sulfate (Ventolin 0.083% Nebulizer Soln -) 1 amp NEB Q6H PRN PRN Reason: SHORT OF BREATH/WHEEZING Budesonide/Formoterol Fumarate (Symbicort 160/4.5mcg -) 2 puff IH BID [facility] Last Admin: 08/18/18 09:24 Dose: Not Given Diltiazem HCl (Cardizem Cd -) 240 mg PO HS [facility] Last Admin: 08/17/18 21:56 Dose: 240 mg Heparin Sodium (Porcine) (Heparin -) 5,000 unit SQ TID [facility] Last Admin: 08/18/18 06:23 Dose: 5,000 unit Sodium Chloride (Normal Saline -) 1,000 mls @ 75 mls/hr IV ASDIR [facility] Last Admin: 08/18/18 04:00 Dose: 75 mls/hr Levofloxacin (Levaquin 250 Mg Premixed Ivpb -) 250 mg in 50 mls @ 50 mls/hr IVPB DAILY [facility]; Protocol Stop: 08/19/18 11:44 Last Admin: 08/18/18 09:09 Dose: 50 mls/hr Potassium Chloride (Potassium Chloride 10 Meq Premix Ivpb -) 10 meq in 100 mls @ 100 mls/hr IVPB Q60M [facility] Stop: 08/18/18 12:14 Levothyroxine Sodium (Synthroid -) 25 mcg PO ACBK [facility] Last Admin: 08/18/18 06:26 Dose: 25 mcg Magnesium Sulfate (Magnesium Sulfate) 2 gm IVPB ONCE ONE Stop: 08/18/18 11:11 Meclizine HCl (Antivert -) 25 mg PO TID PRN PRN Reason: DIZZINESS Melatonin (Melatonin) 10 mg PO HS [facility] Last Admin: 08/17/18 21:55 Dose: 10 mg Morphine Sulfate (Morphine Sulfate) 2 mg IVPUSH Q6H PRN PRN Reason: PAIN LEVEL 6-10 Last Admin: 08/17/18 12:55 Dose: 2 mg Ondansetron HCl (Zofran Injection) 4 mg IVPUSH Q6H PRN PRN Reason: NAUSEA AND/OR VOMITING Last Admin: 08/18/18 07:41 Dose: 4 mg Pantoprazole Sodium (Protonix Iv) 40 mg IVPUSH BID [facility] Last Admin: 08/18/18 09:08 Dose: 40 mg Pregabalin (Lyrica -) 25 mg PO TID [facility] Last Admin: 08/18/18 06:23 Dose: 25 mg Quinapril HCl (Accupril -) 10 mg PO DAILY [facility] Last Admin: 08/18/18 09:09 Dose: 10 mg Sertraline HCl (Zoloft -) 100 mg PO DAILY [facility] Last Admin: 08/18/18 09:09 Dose: 100 mg - Objective Vital Signs: Vital Signs Temperature 97.6 F 08/18/18 08:31 Pulse Rate 102 H 08/18/18 08:31 Respiratory Rate 20 08/18/18 08:31 Blood Pressure 129/63 08/18/18 08:31 O2 Sat by Pulse Oximetry (%) 94 L 08/17/18 22:00 Constitutional: Yes: Well Nourished, No Distress, Calm Cardiovascular: Yes: WNL, Regular Rate and Rhythm Respiratory: Yes: WNL, Regular, CTA Bilaterally. No: Accessory Muscle Use, Tachypnea, Wheezes Gastrointestinal: Yes: Soft, Abdomen, Obese, Hypoactive Bowel Sounds, Other (NGT ). No: Distention, Tenderness, Vomiting Genitourinary: Yes: WNL Musculoskeletal: Yes: WNL Edema: No Neurological: Yes: WNL, Alert, Oriented Psychiatric: Yes: WNL, Alert, Oriented Labs: CBC, BMP 08/18/18 07:00 08/18/18 07:00 INR, PTT INR 0.97 (0.83-1.09) 08/15/18 14:30 Assessment/Plan (1) SBO (small bowel obstruction) Assessment/Plan: conservative management kub this am- improving NGT to LCWS NPO, IVF Zofran prn clinimix started to promote nutrition ambulate as tolerated surgery following Code(s): K56.609 - UNSP INTESTNL OBST, UNSP TO PARTIAL VERSUS COMPLETE OBST (2) UTI (urinary tract infection) Assessment/Plan: UA+, UC w/ecoli esbl Levaquin day 3- d/c ID consulted Code(s): N39.0 - URINARY TRACT INFECTION, SITE NOT SPECIFIED Qualifiers: Urinary tract infection type: acute cystitis Hematuria presence: with hematuria Qualified Code(s): N30.01 - Acute cystitis with hematuria (3) HTN (hypertension) Assessment/Plan: controlled cardizem, quinapril Code(s): I10 - ESSENTIAL (PRIMARY) HYPERTENSION Qualifiers: Hypertension type: essential hypertension Qualified Code(s): I10 - Essential (primary) hypertension (4) Hypothyroid Assessment/Plan: stable continue levothyroxine Code(s): E03.9 - HYPOTHYROIDISM, UNSPECIFIED Qualifiers: Hypothyroidism type: unspecified Qualified Code(s): E03.9 - Hypothyroidism , unspecified (5) Asthma Assessment/Plan: stable, continue current management Code(s): J45.909 - UNSPECIFIED ASTHMA, UNCOMPLICATED (6) Vertigo Assessment/Plan: stable continue meclizine prn Code(s): R42 - DIZZINESS AND GIDDINESS (7) GERD (gastroesophageal reflux disease) Assessment/Plan: EGD on 12/03/17 revealed gastritis continue protonix Code(s): K21.9 - GASTRO-ESOPHAGEAL REFLUX DISEASE WITHOUT ESOPHAGITIS (8) Anastomotic stricture of small intestine Assessment/Plan: s/p balloon dilation,perianastomotic stricture, 11/2017 Code(s): K91.89 - OTH POSTPROCEDURAL COMPLICATIONS AND DISORDERS OF DGSTV SYS (9) Anemia Assessment/Plan: stable, baseline hg around 10 GI consult appreciated- suspect bleeding from small bowel vascular ectasias, plan for double balloon enteroscopy at [facility] upon d/c Code(s): D64.9 - ANEMIA, UNSPECIFIED Qualifiers: Anemia type: iron deficiency (10) Chronic bilateral low back pain Assessment/Plan: controlled, followed by neurologist [facility] implanted morphine pump in ruq, active Code(s): M54.5 - LOW BACK PAIN; G89.29 - OTHER CHRONIC PAIN (11) Chronic pain Assessment/Plan: as above Code(s): G89.29 - OTHER CHRONIC PAIN (12) Hypokalemia Assessment/Plan: K3.6 kcl iv 10meq x 1 monitor bmp Code(s): E87.6 - HYPOKALEMIA (13) Hypomagnesemia Assessment/Plan: Mg 1.5 Mg iv 2g x 2 Code(s): E83.42 - HYPOMAGNESEMIA
[2018-08-18] MEDS ORDERED: ONDANSETRON 4 MG/2 ML VIAL IVPUSH ONE (11:30)
[2018-08-18] MEDS ORDERED: MAGNESIUM SULF 50% (8.12 MEQ/2 ML-1 GM VIAL) IVPB ONE (11:30)
[2018-08-18] MEDS ORDERED: ONDANSETRON 4 MG/2 ML VIAL ONE (11:50)
[2018-08-18] MEDS: D5-1/2NS+20 MEQ KCL - 20 MEQ/1,000 ML INFUS.BAG IV SCH (11:51)
[2018-08-18] MEDS: MORPHINE SULFATE 2 MG/ML VIAL IVPUSH PRN ×2 (13:37→23:17)
[2018-08-18] MEDS: ONDANSETRON 4 MG/2 ML VIAL IVPUSH SCH ×2 (13:55→19:36)
--- NOTE | 2018-08-18 15:19 | CON.ID ---
Consult Consult Specialty:: infectious disease Referred by:: hospitalist Reason for Consultation:: positive urine culture - History of Present Illness Chief Complaint: 78 yo female. admitted 08/15 with intermittent diarrhea. 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: Migraine Cardio/Vascular: Yes: CAD, HTN, Other (MVP) Pulmonary: Yes: Asthma, Bronchitis Gastrointestinal: Yes: Constipation, Diverticulosis, Gastritis, GERD, Hiatal Hernia, Irritable Bowel Disease, Peptic Ulcer Disease, Other (colon polyps) Hepatobiliary: Yes: Other (NAFLD, papillary stenosis @ ERCP with Dr Amaro ) Renal/: Yes: UTI Psych: Yes: Addictions (narcotic dependence, has spinal narcotic infusion pump) , Anxiety Musculoskeletal: Yes: Chronic low back pain (cervical and lumbar radiculopathy) , Osteoarthritis Rheumatology: Yes: Other (avascular necrosis of femoral head) Endocrine: Yes: Hypothyroidism Additional Medical History: early glaucoma. cervical and lumbar radiculopathy. avascular necrosis of femoral head. 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 over 50 surgeries for HA. 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 History of Recent Travel: No Home Medications - Allergies Allergies/Adverse Reactions: Allergies Allergy/AdvReac Type Severity Reaction Status Date / Time metronidazole [From Flagyl] Allergy Intermediate Swelling Verified 08/15/18 13: 05 amoxicillin Allergy Verified 08/15/18 13:05 lactose AdvReac Verified 08/15/18 13:05 fresh fruit Allergy Vomiting Uncoded 08/15/18 13:05 fresh vegetables Allergy Uncoded 08/15/18 13:05 - Home Medications Home Medications: Ambulatory Orders Cholecalciferol (Vitamin D3) [Vitamin D3] 2,000 unit PO DAILY 11/02/16 Diltiazem HCl [Diltiazem 24Hr Cd] 240 mg PO HS 11/02/16 Levothyroxine [Synthroid -] 25 mcg PO DAILY 11/02/16 Montelukast Na [Singulair -] 10 mg PO HS 11/02/16 Nitroglycerin [Nitrostat] 0.4 mg SL PRN PRN 11/02/16 Sertraline HCl [Zoloft -] 100 mg PO DAILY 11/02/16 Sumatriptan Succinate [Imitrex -] 100 mg PO PRN 11/02/16 Polyethylene Glycol 3350 [Miralax 119 gm Btl -] 17 gm PO BID bottle 11/10/16 Acetaminophen [Tylenol .Regular Strength -] 650 mg PO Q4H PRN #0 tablet Quinapril HCl [Accupril -] 10 mg PO DAILY #30 tablet 12/07/16 Meclizine HCl [Antivert -] 25 mg PO TID PRN 11/05/17 Ondansetron HCl [Zofran] 8 mg PO ONCE PRN 11/05/17 Pregabalin [Lyrica] 25 mg PO TID 11/05/17 Potassium Chloride [K-Dur -] 10 meq PO DAILY 12/02/17 Ranitidine HCl 150 mg PO HS 12/02/17 Vitamin E 1,000 unit PO DAILY 12/02/17 Budesonide/Formeterol Fumarate [SYMBICORT 160/4.5mcg -] 2 puff IH PRN PRN Pantoprazole Sodium [Protonix -] 40 mg PO BID 06/21/18 Dicyclomine HCl [Bentyl -] 10 mg PO BID PRN 08/15/18 Family Disease History - Family Disease History Family Disease History: CA: Father (lung), Mother (breast) Review of Systems - Review of Systems Constitutional: reports: No Symptoms. denies: Chills, Fever, Night Sweats Eyes: reports: No Symptoms HENT: reports: No Symptoms Neck: reports: No Symptoms Cardiovascular: reports: No Symptoms. denies: Chest Pain Gastrointestinal: reports: Diarrhea, Vomiting Genitourinary: reports: No Symptoms Physical Exam Vital Signs: Vital Signs Temperature 98.5 F 08/18/18 13:59 Pulse Rate 99 H 08/18/18 13:59 Respiratory Rate 18 08/18/18 13:59 Blood Pressure 123/63 08/18/18 13:59 O2 Sat by Pulse Oximetry (%) 94 L 08/17/18 22:00 Constitutional: Yes: Well Nourished, No Distress, Calm, Other (+NGT) Eyes: Yes: Conjunctiva Clear, EOM Intact HENT: Yes: Atraumatic, Normocephalic Neck: Yes: Supple Cardiovascular: Yes: Regular Rate and Rhythm Respiratory: Yes: Regular, CTA Bilaterally Gastrointestinal: Yes: Soft. No: Tenderness ...Rectal Exam: Yes: Deferred Renal/: Yes: Other (no suprapubic pain). No: Bladder Distention, CVA Tenderness - Left, CVA Tenderness - Right Musculoskeletal: Yes: WNL Extremities: Yes: WNL Edema: No Psychiatric: Yes: Alert, Oriented Labs: CBC, BMP 08/18/18 07:00 08/18/18 07:00 Microbiology 08/15/18 14:30 Blood - Peripheral Venous Blood Culture - Preliminary NO GROWTH OBTAINED AFTER 72 HOURS, INCUBATION TO CONTINUE FOR 2 DAYS. 08/15/18 14:30 Blood - Peripheral Venous Blood Culture - Preliminary NO GROWTH OBTAINED AFTER 72 HOURS, INCUBATION TO CONTINUE FOR 2 DAYS. 08/15/18 23:00 Urine - Urine Clean Catch Urine Culture - Preliminary Escherichia Coli Esbl Benefits Assistant Group D Strep Or Entero Coccus Imaging - Results Chest X-ray: Report Reviewed Cat Scan: Report Reviewed Problem List - Problems (1) SBO (small bowel obstruction) Code(s): K56.609 - UNSP INTESTNL OBST, UNSP TO PARTIAL VERSUS COMPLETE OBST (2) ESBL E. coli carrier Code(s): Z22.39 - CARRIER OF OTHER SPECIFIED BACTERIAL DISEASES (3) Asymptomatic bacteriuria Code(s): R82.71 - BACTERIURIA (4) Allergy to multiple antibiotics Code(s): Z88.1 - ALLERGY STATUS TO OTHER ANTIBIOTIC AGENTS STATUS Assessment/Plan resolving SBO doubt UTI-polymicrobial culture (clean catch) c/w asymptomatic bacteriuria never symptomatic contact isolation for MDRO no need to treat at this time
[2018-08-18] MEDS: AMINO ACIDS 4.25%/D5W 1,000 ML IV SCH (17:10)
--- NOTE | 2018-08-18 20:43 | PN ---
GI Progress Note Subjective: GI NOte: FUA much improved. NG is out. ? UTI. Aman tells me that she has had multiple UTIs this year - Objective Vital Signs: Vital Signs Temperature 98.5 F 08/18/18 13:59 Pulse Rate 99 H 08/18/18 13:59 Respiratory Rate 18 08/18/18 13:59 Blood Pressure 123/63 08/18/18 13:59 O2 Sat by Pulse Oximetry (%) 95 08/18/18 09:00 Laboratory Tests 11/05/17 11/06/17 11/07/17 13:46 05:05 05:05 WBC Hgb 3.9 L* D 9.1 L D Hct 29.0 L D Retic Count 3.05 H D 11/09/17 12/13/17 12/14/17 05:05 10:00 14:45 WBC Hgb 10.2 L 7.7 L D 6.6 L* D Hct Retic Count 08/18/18 07:00 WBC 5.9 Hgb 10.9 Hct Retic Count Constitutional: Calm ...Auscultate: Yes: Normoactive Bowel Sounds ...Palpate: Yes: Soft, Other (nontender) Labs: CBC, BMP 08/18/18 07:00 08/18/18 07:00 INR, PTT INR 0.97 (0.83-1.09) 08/15/18 14:30 Assessment/Plan SBO appears ot be resolved Will order Gastrograffin enema to exclude obstruction at her anastomosis and a colovesical fistula Enteroscopy at [facility] after discharge Problem List - Problems (1) Anemia requiring transfusions Code(s): D64.9 - ANEMIA, UNSPECIFIED (2) SBO (small bowel obstruction) Code(s): K56.609 - UNSP INTESTNL OBST, UNSP TO PARTIAL VERSUS COMPLETE OBST (3) History of colon polyps Code(s): Z86.010 - PERSONAL HISTORY OF COLONIC POLYPS (4) Avascular necrosis of femoral head Code(s): M87.059 - IDIOPATHIC ASEPTIC NECROSIS OF UNSPECIFIED FEMUR (5) Incomplete fixation of cecum Code(s): Q43.3 - CONGENITAL MALFORMATIONS OF INTESTINAL FIXATION (6) History of right hemicolectomy Code(s): Z90.49 - ACQUIRED ABSENCE OF OTHER SPECIFIED PARTS OF DIGESTIVE TRACT (7) Status post appendectomy Code(s): Z90.49 - ACQUIRED ABSENCE OF OTHER SPECIFIED PARTS OF DIGESTIVE TRACT (8) History of cholecystectomy Code(s): Z90.49 - ACQUIRED ABSENCE OF OTHER SPECIFIED PARTS OF DIGESTIVE TRACT (9) Anastomotic stricture of small intestine Code(s): K91.89 - OTH POSTPROCEDURAL COMPLICATIONS AND DISORDERS OF DGSTV SYS (10) Colonic ulcer Code(s): K63.3 - ULCER OF INTESTINE (11) Diverticulosis Code(s): K57.90 - DVRTCLOS OF INTEST, PART UNSP, W/O PERF OR ABSCESS W/O BLEED Qualifiers: Diverticulosis site: diverticulosis of large intestine Diverticulosis bleeding: diverticulosis without bleeding Qualified Code(s): K57.30 - Diverticulosis of large intestine without perforation or abscess without bleeding (12) GERD (gastroesophageal reflux disease) Code(s): K21.9 - GASTRO-ESOPHAGEAL REFLUX DISEASE WITHOUT ESOPHAGITIS (13) GI bleed Code(s): K92.2 - GASTROINTESTINAL HEMORRHAGE, UNSPECIFIED Qualifiers: GI bleed type/associated pathology: melena Qualified Code(s): K92.1 - Melena (14) Non-alcoholic fatty liver disease Code(s): K76.0 - FATTY (CHANGE OF) LIVER, NOT ELSEWHERE CLASSIFIED
[2018-08-18] MEDS: MELATONIN 5 MG TABLETS PO SCH (22:02)
--- NOTE | 2018-08-18 23:39 | PN ---
Progress Note (short form) - Note Progress Note: Patient admitted with recurring intestinal obstruction, known case of CAD, angina, hypertension and anemia. No chest pain or discomfort. no SOB. Was sitting in chair, NG tube in place. Active Medications Albuterol Sulfate (Ventolin 0.083% Nebulizer Soln -) 1 amp NEB Q6H PRN PRN Reason: SHORT OF BREATH/WHEEZING Budesonide/Formoterol Fumarate (Symbicort 160/4.5mcg -) 2 puff IH BID [facility] Last Admin: 08/18/18 22:05 Dose: Not Given Diltiazem HCl (Cardizem Cd -) 240 mg PO [facility] Last Admin: 08/18/18 22:03 Dose: 240 mg Heparin Sodium (Porcine) (Heparin -) 5,000 unit SQ TID [facility] Last Admin: 08/18/18 22:03 Dose: 5,000 unit Amino Acids (Clinimix -) 1,000 mls @ 42 mls/hr IV Q24H [facility] Last Admin: 08/18/18 17:10 Dose: 42 mls/hr Potassium Chloride/Dextrose/Sod Cl (D5-1/2ns+20 Meq Kcl -) 20 meq in 1,000 mls @ 50 mls/hr IV ASDIR [facility] Last Admin: 08/18/18 11:51 Dose: 50 mls/hr Levothyroxine Sodium (Synthroid -) 25 mcg PO ACBK [facility] Last Admin: 08/18/18 06:26 Dose: 25 mcg Meclizine HCl (Antivert -) 25 mg PO TID PRN PRN Reason: DIZZINESS Melatonin (Melatonin) 10 mg PO [facility] Last Admin: 08/18/18 22:02 Dose: 10 mg Morphine Sulfate (Morphine Sulfate) 2 mg IVPUSH Q6H PRN PRN Reason: PAIN LEVEL 6-10 Last Admin: 08/18/18 23:17 Dose: 2 mg Ondansetron HCl (Zofran Injection) 8 mg IVPUSH Q8H [facility] Last Admin: 08/18/18 19:36 Dose: 8 mg Pantoprazole Sodium (Protonix Iv) 40 mg IVPUSH BID [facility] Last Admin: 08/18/18 22:04 Dose: 40 mg Pregabalin (Lyrica -) 25 mg PO TID [facility] Last Admin: 08/18/18 22:03 Dose: 25 mg Quinapril HCl (Accupril -) 10 mg PO DAILY [facility] Last Admin: 08/18/18 09:09 Dose: 10 mg Sertraline HCl (Zoloft -) 100 mg PO DAILY [facility] Last Admin: 08/18/18 09:09 Dose: 100 m Last Vital Signs Temp Pulse Resp BP Pulse Ox 98.5 F 91 H 18 129/56 L 95 08/18/18 13:59 08/18/18 22:00 08/18/18 13:59 08/18/18 22:00 08/18/18 20:40 NECK: Supple, no JVD, carotids 2+, no bruits. HEART: PMI in the 5th ICS, S1 and S2 are normal, no murmur or gallops heard. LUNGS: Clear on auscultation ABDOMEN: Soft, notenderness, no organomegaly. Rt. lower quadrant firm mass ( morphine) pump. EXTREMITIES: No calf tenderness or dependent edema. CBC, BMP 08/18/18 07:00 08/18/18 07:00 IMPRESSION: 1. Problem List - Problems (1) Hyperlipidemia Code(s): E78.5 - HYPERLIPIDEMIA, UNSPECIFIED (2) Angina at rest Code(s): I20.8 - OTHER FORMS OF ANGINA PECTORIS (3) HTN (hypertension) Code(s): I10 - ESSENTIAL (PRIMARY) HYPERTENSION Qualifiers: Hypertension type: essential hypertension Qualified Code(s): I10 - Essential (primary) hypertension (4) Hypothyroid Code(s): E03.9 - HYPOTHYROIDISM, UNSPECIFIED Qualifiers: Hypothyroidism type: unspecified Qualified Code(s): E03.9 - Hypothyroidism , unspecified
[2018-08-19] MEDS: ONDANSETRON 4 MG/2 ML VIAL IVPUSH SCH ×3 (02:38→20:44)
[2018-08-19] MEDS: PREGABALIN 25 MG CAPSULE PO SCH ×3 (06:08→21:33)
[2018-08-19] MEDS: HEPARIN NA (PORCINE) 5,000 UNITS/ML 1ML VIAL SQ SCH ×3 (06:08→21:33)
[2018-08-19] MEDS: LEVOTHYROXINE NA 25 MCG TABLET (FP) PO SCH (06:08)
[2018-08-19] MEDS: D5-1/2NS+20 MEQ KCL - 20 MEQ/1,000 ML INFUS.BAG IV SCH (06:22)
[2018-08-19] MEDS ORDERED: PT OWN MED DRAWER 7, Y5N ONE ×2 (06:44→12:14)
[2018-08-19 07:45] LABS: BASO % 0.4 % (0-2.0); EOS % 9.1 % (0-4.5); HEMOGLOBIN 11.3 GM/dL (10.7-15.3); LYMPH % 19.5 % (8-40); MCH 29.8 pg (25.7-33.7); MCHC 32.3 g/dl (32.0-36.0); MEAN CELL VOLUME 92.1 fl (80-96); MEAN PLT VOLUME 9.1 fl (7.5-11.1); MONO % 5.1 % (3.8-10.2); NEUT % 65.9 % (42.8-82.8); PLATELET COUNT 250 K/MM3 (134-434); RDW 14.8 % (11.6-15.6); WHITE BLOOD COUNT 5.6 K/mm3 (4.0-10.0)
[2018-08-19 07:47] LABS: ANION GAP 10 MMOL/L (8-16); BLOOD UREA NITROGEN 5 mg/dL (7-18); CALCIUM 8.3 mg/dL (8.5-10.1); CHLORIDE 104 mmol/L (98-107); CO2 28 mmol/L (21-32); CREATININE 0.6 mg/dL (0.55-1.3); GLUCOSE,RANDOM 73 mg/dL (74-106); MAGNESIUM 1.6 mg/dL (1.8-2.4); PHOSPHOROUS 2.2 mg/dL (2.5-4.9); POTASSIUM 4.1 mmol/L (3.5-5.1); SODIUM 142 mmol/L (136-145)
[2018-08-19 08:06] LABS: SERUM IRON SATURATION 16 % (15-55); TOTAL IRON BINDING CAPACITY 252 ug/dL (250-450); UIBC 211 ug/dL (118-369)
--- NOTE | 2018-08-19 09:36 | PN ---
Progress Note (short form) - Note Progress Note: /[employer] Dmitry to document today. She feels better with NG tube out; for Gastrograffin study to R/O severe colon stricture or Colovesicular fistula. ID note on ESBL Urine C/S noted.
[2018-08-19] MEDS ORDERED: MAGNESIUM SULF 50% (8.12 MEQ/2 ML-1 GM VIAL) IVPB ONE (09:47)
--- NOTE | 2018-08-19 09:50 | PN ---
Progress Note, Physician Chief Complaint: Pt lying in bed in no acute distress. tolerating clears. Denies any chest pain, sob, n/v - Current Medication List Current Medications: Active Medications Albuterol Sulfate (Ventolin 0.083% Nebulizer Soln -) 1 amp NEB Q6H PRN PRN Reason: SHORT OF BREATH/WHEEZING Budesonide/Formoterol Fumarate (Symbicort 160/4.5mcg -) 2 puff IH BID [facility] Last Admin: 08/18/18 22:05 Dose: Not Given Diltiazem HCl (Cardizem Cd -) [address] [facility] Last Admin: 08/18/18 22:03 Dose: 240 mg Heparin Sodium (Porcine) (Heparin -) 5,000 unit SQ TID [facility] Last Admin: 08/19/18 06:08 Dose: 5,000 unit Amino Acids (Clinimix -) 1,000 mls @ 42 mls/hr IV Q24H [facility] Last Admin: 08/18/18 17:10 Dose: 42 mls/hr Levothyroxine Sodium (Synthroid -) 25 mcg PO ACBK [facility] Last Admin: 08/19/18 06:08 Dose: 25 mcg Magnesium Sulfate (Magnesium Sulfate) 2 gm IVPB ONCE ONE Stop: 08/19/18 09:48 Meclizine HCl (Antivert -) 25 mg PO TID PRN PRN Reason: DIZZINESS Melatonin (Melatonin) [address] [facility] Last Admin: 08/18/18 22:02 Dose: 10 mg Morphine Sulfate (Morphine Sulfate) 2 mg IVPUSH Q6H PRN PRN Reason: PAIN LEVEL 6-10 Last Admin: 08/18/18 23:17 Dose: 2 mg Ondansetron HCl (Zofran Injection) 8 mg IVPUSH Q8H [facility] Last Admin: 08/19/18 02:38 Dose: 8 mg Pantoprazole Sodium (Protonix Iv) 40 mg IVPUSH BID [facility] Last Admin: 08/18/18 22:04 Dose: 40 mg Potassium Phos/Sodium Phos (Phos-Nak Packet -) 1 packet PO BID [facility] Pregabalin (Lyrica -) 25 mg PO TID [facility] Last Admin: 08/19/18 06:08 Dose: 25 mg Quinapril HCl (Accupril -) 10 mg PO DAILY [facility] Last Admin: 08/18/18 09:09 Dose: 10 mg Sertraline HCl (Zoloft -) 100 mg PO DAILY [facility] Last Admin: 08/18/18 09:09 Dose: 100 mg - Objective Vital Signs: Vital Signs Temperature 98.5 F 08/19/18 05:48 Pulse Rate 93 H 08/19/18 05:48 Respiratory Rate 20 08/19/18 05:48 Blood Pressure 126/61 08/19/18 05:48 O2 Sat by Pulse Oximetry (%) 95 08/18/18 20:40 Constitutional: Yes: Well Nourished, No Distress, Calm Cardiovascular: Yes: WNL, Regular Rate and Rhythm Respiratory: Yes: WNL, Regular, CTA Bilaterally. No: Accessory Muscle Use, SOB , Tachypnea, Wheezes Gastrointestinal: Yes: Normal Bowel Sounds, Soft, Abdomen, Obese. No: Distention, Tenderness Genitourinary: Yes: WNL Extremities: Yes: WNL Edema: No Neurological: Yes: WNL, Alert, Oriented Psychiatric: Yes: WNL, Alert, Oriented Labs: CBC, BMP 08/19/18 06:00 08/19/18 06:00 INR, PTT INR 0.97 (0.83-1.09) 08/15/18 14:30 Assessment/Plan (1) SBO (small bowel obstruction) Assessment/Plan: improved w/ conservative management ngt removed tolerating clear liquids Zofran prn clinimix ambulate as tolerated surgery following Code(s): K56.609 - UNSP INTESTNL OBST, UNSP TO PARTIAL VERSUS COMPLETE OBST (2) UTI (urinary tract infection) Assessment/Plan: UA+, UC w/ecoli esbl ID consult appreciated Code(s): N39.0 - URINARY TRACT INFECTION, SITE NOT SPECIFIED Qualifiers: Urinary tract infection type: acute cystitis Hematuria presence: with hematuria Qualified Code(s): N30.01 - Acute cystitis with hematuria (3) HTN (hypertension) Assessment/Plan: controlled cardizem, quinapril Code(s): I10 - ESSENTIAL (PRIMARY) HYPERTENSION Qualifiers: Hypertension type: essential hypertension Qualified Code(s): I10 - Essential (primary) hypertension (4) Hypothyroid Assessment/Plan: stable continue levothyroxine Code(s): E03.9 - HYPOTHYROIDISM, UNSPECIFIED Qualifiers: Hypothyroidism type: unspecified Qualified Code(s): E03.9 - Hypothyroidism , unspecified (5) Asthma Assessment/Plan: stable, continue current management Code(s): J45.909 - UNSPECIFIED ASTHMA, UNCOMPLICATED (6) Vertigo Assessment/Plan: stable continue meclizine prn Code(s): R42 - DIZZINESS AND GIDDINESS (7) GERD (gastroesophageal reflux disease) Assessment/Plan: EGD on 12/03/17 revealed gastritis continue protonix Code(s): K21.9 - GASTRO-ESOPHAGEAL REFLUX DISEASE WITHOUT ESOPHAGITIS (8) Anastomotic stricture of small intestine Assessment/Plan: s/p balloon dilation,perianastomotic stricture, 11/2017 barium enema today without colonic lesions/stricture Code(s): K91.89 - OTH POSTPROCEDURAL COMPLICATIONS AND DISORDERS OF DGSTV SYS (9) Anemia Assessment/Plan: stable, baseline hg around 10 GI consult appreciated- suspect bleeding from small bowel vascular ectasias, plan for double balloon enteroscopy at [facility] upon d/c Code(s): D64.9 - ANEMIA, UNSPECIFIED Qualifiers: Anemia type: iron deficiency (10) Chronic bilateral low back pain Assessment/Plan: controlled, followed by neurologist [facility] implanted morphine pump in ruq, active Code(s): M54.5 - LOW BACK PAIN; G89.29 - OTHER CHRONIC PAIN (11) Chronic pain Assessment/Plan: as above Code(s): G89.29 - OTHER CHRONIC PAIN (12) Hypokalemia Assessment/Plan: improved Code(s): E87.6 - HYPOKALEMIA (13) Hypomagnesemia Assessment/Plan: Mg 1.6 Mg iv 2g x 1 Code(s): E83.42 - HYPOMAGNESEMIA (14) Hypophosphatemia Assessment/Plan: phosnak ordered monitor phosphorus level Code(s): E83.39 - OTHER DISORDERS OF PHOSPHORUS METABOLISM Dispo: Home
[2018-08-19 12:12] LABS: ANISOCYTOSIS 1+; MACROCYTOSIS 1+; PLATELET ESTIMATE NORMAL
[2018-08-19] MEDS: SERTRALINE HCL 50 MG TABLET (FP) PO SCH (12:22)
[2018-08-19] MEDS: PANTOPRAZOLE 40 MG TABLET (FP) PO SCH ×2 (12:22→21:33)
[2018-08-19] MEDS: NAPH,MB-DB/K PH,MBDB POWDER PACKET PO SCH ×2 (12:23→21:33)
[2018-08-19] MEDS: QUINAPRIL HCL 10 MG TABLET (FP) PO SCH (12:24)
[2018-08-19] MEDS: BUDESONIDE/FORMETEROL FUMARATE 160/4.5 mcg INHALER IH SCH ×2 (12:24→21:34)
[2018-08-19] MEDS: AMINO ACIDS 4.25%/D5W 1,000 ML IV SCH (12:25)
--- NOTE | 2018-08-19 13:57 | EKG ---
Test Reason : Blood Pressure : / mmHG Vent. Rate : 110 BPM Atrial Rate : 110 BPM P-R Int : 138 ms QRS Dur : 090 ms QT Int : 340 ms P-R-T Axes : 055 009 042 degrees QTc Int : 460 ms SINUS TACHYCARDIA POSSIBLE INFERIOR INFARCT , AGE UNDETERMINED ABNORMAL ECG WHEN COMPARED WITH ECG OF 30-MAY-2018 12:02, PREMATURE SUPRAVENTRICULAR COMPLEXES ARE NO LONGER PRESENT Confirmed by KELBY JOLLEY MD ([id number]) on 08/19/2018 1:57:05 PM Referred By: Confirmed By:KELBY JOLLEY MD
[2018-08-19] MEDS: MORPHINE SULFATE 2 MG/ML VIAL IVPUSH PRN ×2 (15:13→23:29)
--- NOTE | 2018-08-19 17:43 | PN ---
Progress Note, Physician Chief Complaint: abdominal pain and vomiting History of Present Illness: 77 yo female PMH diverticular disease, chronic abdominal pain, morphine pump, colitis, gastrointestinal bleed, diarrhea presented to the emergency department reporting abdominal pain that started 1 week ago. passing gas and stool. Tolerating diet with minor complaints of nausea. - Current Medication List Current Medications: Active Medications Albuterol Sulfate (Ventolin 0.083% Nebulizer Soln -) 1 amp NEB Q6H PRN PRN Reason: SHORT OF BREATH/WHEEZING Budesonide/Formoterol Fumarate (Symbicort 160/4.5mcg -) 2 puff IH BID [facility] Last Admin: 08/19/18 12:24 Dose: 2 puff Diltiazem HCl (Cardizem Cd -) [address] [facility] Last Admin: 08/18/18 22:03 Dose: 240 mg Heparin Sodium (Porcine) (Heparin -) 5,000 unit SQ TID [facility] Last Admin: 08/19/18 14:10 Dose: 5,000 unit Amino Acids (Clinimix -) 1,000 mls @ 42 mls/hr IV Q24H [facility] Last Admin: 08/19/18 12:25 Dose: 42 mls/hr Levothyroxine Sodium (Synthroid -) 25 mcg PO ACBK [facility] Last Admin: 08/19/18 06:08 Dose: 25 mcg Meclizine HCl (Antivert -) 25 mg PO TID PRN PRN Reason: DIZZINESS Melatonin (Melatonin) [address] [facility] Last Admin: 08/18/18 22:02 Dose: 10 mg Morphine Sulfate (Morphine Sulfate) 2 mg IVPUSH Q6H PRN PRN Reason: PAIN LEVEL 6-10 Last Admin: 08/19/18 15:13 Dose: 2 mg Ondansetron HCl (Zofran Injection) 8 mg IVPUSH Q8H [facility] Last Admin: 08/19/18 11:25 Dose: Not Given Pantoprazole Sodium (Protonix -) 40 mg PO BID [facility] Last Admin: 08/19/18 12:22 Dose: 40 mg Potassium Phos/Sodium Phos (Phos-Nak Packet -) 1 packet PO BID [facility] Last Admin: 08/19/18 12:23 Dose: 1 packet Pregabalin (Lyrica -) 25 mg PO TID [facility] Last Admin: 08/19/18 14:05 Dose: 25 mg Quinapril HCl (Accupril -) 10 mg PO DAILY [facility] Last Admin: 08/19/18 12:24 Dose: 10 mg Sertraline HCl (Zoloft -) 100 mg PO DAILY [facility] Last Admin: 08/19/18 12:22 Dose: 100 mg - Objective Vital Signs: Vital Signs Temperature 98.4 F 08/19/18 14:00 Pulse Rate 100 H 08/19/18 14:00 Respiratory Rate 20 08/19/18 14:00 Blood Pressure 128/54 L 08/19/18 14:00 O2 Sat by Pulse Oximetry (%) 97 08/19/18 12:30 Constitutional: Yes: Well Nourished, No Distress, Calm, Obese Eyes: Yes: Conjunctiva Clear, EOM Intact HENT: Yes: Atraumatic, Normocephalic Neck: Yes: Supple, Trachea Midline Cardiovascular: Yes: Regular Rate and Rhythm, S1, S2 Respiratory: Yes: Regular, CTA Bilaterally Gastrointestinal: Yes: Normal Bowel Sounds, Soft, Abdomen, Obese. No: Distention, Tenderness, Tenderness, Epigastrium, Tenderness, Rebound ...Rectal Exam: Yes: Deferred Genitourinary: No: CVA Tenderness - Left, CVA Tenderness - Right Musculoskeletal: No: Muscle Pain, Muscle Weakness Extremities: No: Cool, Cyanosis Edema: No Peripheral Pulses WNL: Yes Peripheral Pulses: Left Radial: 2+, Right Radial: 2+, Left Doralis Pedis: 2+, Right Dorsalis Pedis: 2+ Integumentary: No: Jaundice, Rash, Venous Stasis Changes Neurological: Yes: Alert, Oriented Psychiatric: Yes: Alert, Oriented Labs: CBC, BMP 08/19/18 06:00 08/19/18 06:00 INR, PTT INR 0.97 (0.83-1.09) 08/15/18 14:30 Problem List - Problems (1) Partial small bowel obstruction Assessment/Plan: 77yo female MMP with recurrent partial SBO, No acute surgical intervention is indicated. Passing BM and flatus now. Tolerating diet. Cleared of luminal pathlogy with BE. Will follow at [facility] for additional gastrointestinal screening. Provided with contact information if considering surgery. Diet as tolerated Antiemetic therapy Adequate analgesia will follow for serial exams May be discharged Code(s): K56.600 - PARTIAL INTESTINAL OBSTRUCTION, UNSPECIFIED TO CAUSE (2) Anastomotic stricture of small intestine Code(s): K91.89 - OTH POSTPROCEDURAL COMPLICATIONS AND DISORDERS OF DGSTV SYS (3) Chronic bilateral low back pain Code(s): M54.5 - LOW BACK PAIN; G89.29 - OTHER CHRONIC PAIN Qualifiers: Sciatica presence: without sciatica Qualified Code(s): M54.5 - Low back pain; G89.29 - Other chronic pain (4) Diverticulosis Code(s): K57.90 - DVRTCLOS OF INTEST, PART UNSP, W/O PERF OR ABSCESS W/O BLEED Qualifiers: Diverticulosis site: diverticulosis of large intestine Diverticulosis bleeding: diverticulosis without bleeding Qualified Code(s): K57.30 - Diverticulosis of large intestine without perforation or abscess without bleeding (5) Stricture intestinal Code(s): K56.699 - OTHER INTESTNL OBST UNSP TO PARTIAL VERSUS COMPLETE OBST (6) Asthma Code(s): J45.909 - UNSPECIFIED ASTHMA, UNCOMPLICATED Qualifiers: Asthma severity: moderate Asthma persistence: persistent Asthma complication type: uncomplicated Qualified Code(s): J45.40 - Moderate persistent asthma, uncomplicated (7) Chronic pain Code(s): G89.29 - OTHER CHRONIC PAIN Qualifiers: Chronic pain type: chronic pain syndrome Qualified Code(s): G89.4 - Chronic pain syndrome (8) HTN (hypertension) Code(s): I10 - ESSENTIAL (PRIMARY) HYPERTENSION Qualifiers: Hypertension type: essential hypertension Qualified Code(s): I10 - Essential (primary) hypertension (9) Hypothyroid Code(s): E03.9 - HYPOTHYROIDISM, UNSPECIFIED Qualifiers: Hypothyroidism type: unspecified Qualified Code(s): E03.9 - Hypothyroidism , unspecified
--- NOTE | 2018-08-19 18:05 | PN ---
GI Progress Note Subjective: GI NOte: GGE reveals no obstruction or fistulae. Tolerating liquids. Wants to eat - Objective Vital Signs: Vital Signs Temperature 98.4 F 08/19/18 14:00 Pulse Rate 100 H 08/19/18 14:00 Respiratory Rate 20 08/19/18 14:00 Blood Pressure 128/54 L 08/19/18 14:00 O2 Sat by Pulse Oximetry (%) 97 08/19/18 12:30 Constitutional: Calm ...Auscultate: Yes: Normoactive Bowel Sounds ...Palpate: Yes: Soft, Other (nontender) Labs: CBC, BMP 08/19/18 06:00 08/19/18 06:00 INR, PTT INR 0.97 (0.83-1.09) 08/15/18 14:30 Assessment/Plan SBO resolved trial of solids in AM. 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 (6) History of right hemicolectomy Code(s): Z90.49 - ACQUIRED ABSENCE OF OTHER SPECIFIED PARTS OF DIGESTIVE TRACT (7) Status post appendectomy Code(s): Z90.49 - ACQUIRED ABSENCE OF OTHER SPECIFIED PARTS OF DIGESTIVE TRACT (8) History of cholecystectomy Code(s): Z90.49 - ACQUIRED ABSENCE OF OTHER SPECIFIED PARTS OF DIGESTIVE TRACT (9) Anastomotic stricture of small intestine Code(s): K91.89 - OTH POSTPROCEDURAL COMPLICATIONS AND DISORDERS OF DGSTV SYS (10) Colonic ulcer Code(s): K63.3 - ULCER OF INTESTINE (11) Diverticulosis Code(s): K57.90 - DVRTCLOS OF INTEST, PART UNSP, W/O PERF OR ABSCESS W/O BLEED Qualifiers: Diverticulosis site: diverticulosis of large intestine Diverticulosis bleeding: diverticulosis without bleeding Qualified Code(s): K57.30 - Diverticulosis of large intestine without perforation or abscess without bleeding (12) GERD (gastroesophageal reflux disease) Code(s): K21.9 - GASTRO-ESOPHAGEAL REFLUX DISEASE WITHOUT ESOPHAGITIS (13) GI bleed Code(s): K92.2 - GASTROINTESTINAL HEMORRHAGE, UNSPECIFIED Qualifiers: GI bleed type/associated pathology: melena Qualified Code(s): K92.1 - Melena (14) Non-alcoholic fatty liver disease Code(s): K76.0 - FATTY (CHANGE OF) LIVER, NOT ELSEWHERE CLASSIFIED
[2018-08-19] MEDS: MELATONIN 5 MG TABLETS PO SCH (21:33)
[2018-08-20 00:08] LABS: ATYPICAL pANCA <1:20 titer (Neg:<1:20); C-ANCA <1:20 titer (Neg:<1:20); P-ANCA <1:20 titer (Neg:<1:20)
[2018-08-20] MEDS: ONDANSETRON 4 MG/2 ML VIAL IVPUSH SCH ×2 (04:44→12:22)
[2018-08-20] MEDS: PREGABALIN 25 MG CAPSULE PO SCH ×3 (05:25→22:00)
[2018-08-20] MEDS: HEPARIN NA (PORCINE) 5,000 UNITS/ML 1ML VIAL SQ SCH ×3 (05:25→22:00)
[2018-08-20] MEDS: LEVOTHYROXINE NA 25 MCG TABLET (FP) PO SCH (06:03)
[2018-08-20 09:04] LABS: BASO % 0.5 % (0-2.0); HEMATOCRIT 39.1 % (32.4-45.2); HEMOGLOBIN 12.5 GM/dL (10.7-15.3); LYMPH % 13.4 % (8-40); MCH 29.2 pg (25.7-33.7); MCHC 31.9 g/dl (32.0-36.0); MEAN CELL VOLUME 91.7 fl (80-96); MEAN PLT VOLUME 8.8 fl (7.5-11.1); MONO % 5.6 % (3.8-10.2); NEUT % 72.5 % (42.8-82.8); PLATELET COUNT 288 K/MM3 (134-434); RBC 4.27 M/mm3 (3.60-5.2); RDW 15.7 % (11.6-15.6); WHITE BLOOD COUNT 7.5 K/mm3 (4.0-10.0)
[2018-08-20 09:30] LABS: ANION GAP 9 MMOL/L (8-16); BLOOD UREA NITROGEN 5 mg/dL (7-18); CALCIUM 8.9 mg/dL (8.5-10.1); CHLORIDE 103 mmol/L (98-107); CO2 29 mmol/L (21-32); CREATININE 0.7 mg/dL (0.55-1.3); GLUCOSE,RANDOM 142 mg/dL (74-106); MAGNESIUM 1.6 mg/dL (1.8-2.4); PHOSPHOROUS 3.1 mg/dL (2.5-4.9); POTASSIUM 3.2 mmol/L (3.5-5.1); SODIUM 141 mmol/L (136-145)
[2018-08-20] MEDS ORDERED: PT OWN MED DRAWER 7, Y5N ONE (10:19)
[2018-08-20] MEDS: SERTRALINE HCL 50 MG TABLET (FP) PO SCH (10:21)
[2018-08-20] MEDS: BUDESONIDE/FORMETEROL FUMARATE 160/4.5 mcg INHALER IH SCH ×2 (10:21→22:01)
[2018-08-20] MEDS: PANTOPRAZOLE 40 MG TABLET (FP) PO SCH ×2 (10:21→21:59)
[2018-08-20] MEDS: NAPH,MB-DB/K PH,MBDB POWDER PACKET PO SCH ×2 (10:21→21:56)
[2018-08-20] MEDS: QUINAPRIL HCL 10 MG TABLET (FP) PO SCH (10:22)
[2018-08-20] MEDS: MORPHINE SULFATE 2 MG/ML VIAL IVPUSH PRN ×2 (10:38→22:10)
--- NOTE | 2018-08-20 11:27 | PN ---
Progress Note, Physician Chief Complaint: Ms Moreland says syrup with her salv[place] toast this morning caused abdominal pain, says this happened in the past. Still hungry, having bm and flatus. Currently denies cp, sob, n/v. - Current Medication List Current Medications: Active Medications Albuterol Sulfate (Ventolin 0.083% Nebulizer Soln -) 1 amp NEB Q6H PRN PRN Reason: SHORT OF BREATH/WHEEZING Budesonide/Formoterol Fumarate (Symbicort 160/4.5mcg -) 2 puff IH BID [facility] Last Admin: 08/20/18 10:21 Dose: 2 puff Diltiazem HCl (Cardizem Cd -) 240 mg PO HS [facility] Last Admin: 08/19/18 21:34 Dose: 240 mg Heparin Sodium (Porcine) (Heparin -) 5,000 unit SQ TID [facility] Last Admin: 08/20/18 05:25 Dose: 5,000 unit Potassium Chloride (Potassium Chloride 10 Meq Premix Ivpb -) 10 meq in 100 mls @ 100 mls/hr IVPB Q60M [facility] Stop: 08/20/18 13:29 Levothyroxine Sodium (Synthroid -) 25 mcg PO ACBK [facility] Last Admin: 08/20/18 06:03 Dose: 25 mcg Meclizine HCl (Antivert -) 25 mg PO TID PRN PRN Reason: DIZZINESS Melatonin (Melatonin) 10 mg PO HS [facility] Last Admin: 08/19/18 21:33 Dose: 10 mg Morphine Sulfate (Morphine Sulfate) 2 mg IVPUSH Q6H PRN PRN Reason: PAIN LEVEL 6-10 Last Admin: 08/20/18 10:38 Dose: 2 mg Ondansetron HCl (Zofran Injection) 8 mg IVPUSH Q8H [facility] Last Admin: 08/20/18 04:44 Dose: Not Given Pantoprazole Sodium (Protonix -) 40 mg PO BID [facility] Last Admin: 08/20/18 10:21 Dose: 40 mg Potassium Phos/Sodium Phos (Phos-Nak Packet -) 1 packet PO BID [facility] Last Admin: 08/20/18 10:21 Dose: 1 packet Pregabalin (Lyrica -) 25 mg PO TID [facility] Last Admin: 08/20/18 05:25 Dose: 25 mg Quinapril HCl (Accupril -) 10 mg PO DAILY [facility] Last Admin: 08/20/18 10:22 Dose: 10 mg Sertraline HCl (Zoloft -) 100 mg PO DAILY [facility] Last Admin: 08/20/18 10:21 Dose: 100 mg - Objective Vital Signs: Vital Signs Temperature 36.7 C 08/20/18 09:35 Pulse Rate 99 H 08/20/18 09:35 Respiratory Rate 15 08/20/18 09:35 Blood Pressure 126/63 08/20/18 09:35 O2 Sat by Pulse Oximetry (%) 97 08/19/18 22:00 Constitutional: Yes: No Distress, Calm, Obese Cardiovascular: Yes: Regular Rate and Rhythm. No: Gallop, Murmur, Rub Respiratory: Yes: Regular, CTA Bilaterally. No: Rales, Rhonchi, Wheezes Gastrointestinal: Yes: Normal Bowel Sounds, Soft. No: Distention, Tenderness Extremities: Yes: WNL Edema: No Labs: CBC, BMP 08/20/18 07:45 08/20/18 07:45 INR, PTT INR 0.97 (0.83-1.09) 08/15/18 14:30 Assessment/Plan (1) SBO (small bowel obstruction) Code(s): K56.609 - UNSP INTESTNL OBST, UNSP TO PARTIAL VERSUS COMPLETE OBST (2) UTI (urinary tract infection) Code(s): N39.0 - URINARY TRACT INFECTION, SITE NOT SPECIFIED Qualifiers: Urinary tract infection type: acute cystitis Hematuria presence: with hematuria Qualified Code(s): N30.01 - Acute cystitis with hematuria (3) HTN (hypertension) Code(s): I10 - ESSENTIAL (PRIMARY) HYPERTENSION Qualifiers: Hypertension type: essential hypertension Qualified Code(s): I10 - Essential (primary) hypertension (4) Hypothyroid Code(s): E03.9 - HYPOTHYROIDISM, UNSPECIFIED Qualifiers: Hypothyroidism type: unspecified Qualified Code(s): E03.9 - Hypothyroidism , unspecified (5) Asthma Code(s): J45.909 - UNSPECIFIED ASTHMA, UNCOMPLICATED (6) Vertigo Code(s): R42 - DIZZINESS AND GIDDINESS (7) GERD (gastroesophageal reflux disease) Code(s): K21.9 - GASTRO-ESOPHAGEAL REFLUX DISEASE WITHOUT ESOPHAGITIS (8) Anastomotic stricture of small intestine Code(s): K91.89 - OTH POSTPROCEDURAL COMPLICATIONS AND DISORDERS OF DGSTV SYS (9) Anemia Code(s): D64.9 - ANEMIA, UNSPECIFIED Qualifiers: Anemia type: iron deficiency (10) Chronic bilateral low back pain Code(s): M54.5 - LOW BACK PAIN; G89.29 - OTHER CHRONIC PAIN (11) Chronic pain Code(s): G89.29 - OTHER CHRONIC PAIN (12) Hypokalemia Code(s): E87.6 - HYPOKALEMIA (13) Hypomagnesemia Code(s): E83.42 - HYPOMAGNESEMIA (14) Hypophosphatemia Code(s): E83.39 - OTHER DISORDERS OF PHOSPHORUS METABOLISM (15) Hypokalemia Plan -monitor, patient tolerated breakfast poorly -may be secondary to syrup but will make sure tolerating diet today -stop clinimix -replete potassium -otherwise continue current management -if no more abdominal pain with food, possible discharge tomorrow
[2018-08-20] MEDS: KCL 10 MEQ IVPB 10 MEQ/100 ML INFUS.BAG IVPB SCH ×3 (11:50→14:52)
[2018-08-20] MEDS: ONDANSETRON 4 MG/2 ML VIAL IVPB SCH ×2 (12:04→18:01)
--- NOTE | 2018-08-20 15:04 | PN ---
Progress Note, Physician Chief Complaint: abdominal pain and vomiting History of Present Illness: 77 yo female PMH diverticular disease, chronic abdominal pain, morphine pump, colitis, gastrointestinal bleed, diarrhea presented to the emergency department reporting abdominal pain that started 1 week ago. passing gas and stool. Tolerating diet with minor complaints of nausea. - Current Medication List Current Medications: Active Medications Albuterol Sulfate (Ventolin 0.083% Nebulizer Soln -) 1 amp NEB Q6H PRN PRN Reason: SHORT OF BREATH/WHEEZING Budesonide/Formoterol Fumarate (Symbicort 160/4.5mcg -) 2 puff IH BID [facility] Last Admin: 08/20/18 10:21 Dose: 2 puff Diltiazem HCl (Cardizem Cd -) 240 mg PO HS [facility] Last Admin: 08/19/18 21:34 Dose: 240 mg Heparin Sodium (Porcine) (Heparin -) 5,000 unit SQ TID [facility] Last Admin: 08/20/18 14:04 Dose: 5,000 unit Levothyroxine Sodium (Synthroid -) 25 mcg PO ACBK [facility] Last Admin: 08/20/18 06:03 Dose: 25 mcg Meclizine HCl (Antivert -) 25 mg PO TID PRN PRN Reason: DIZZINESS Melatonin (Melatonin) 10 mg PO HS [facility] Last Admin: 08/19/18 21:33 Dose: 10 mg Morphine Sulfate (Morphine Sulfate) 2 mg IVPUSH Q6H PRN PRN Reason: PAIN LEVEL 6-10 Last Admin: 08/20/18 10:38 Dose: 2 mg Ondansetron HCl (Zofran Injection) 8 mg IVPB Q8H-IV [facility] Last Admin: 08/20/18 12:04 Dose: 8 mg Pantoprazole Sodium (Protonix -) 40 mg PO BID [facility] Last Admin: 08/20/18 10:21 Dose: 40 mg Potassium Phos/Sodium Phos (Phos-Nak Packet -) 1 packet PO BID [facility] Last Admin: 08/20/18 10:21 Dose: 1 packet Pregabalin (Lyrica -) 25 mg PO TID [facility] Last Admin: 08/20/18 14:04 Dose: 25 mg Quinapril HCl (Accupril -) 10 mg PO DAILY [facility] Last Admin: 08/20/18 10:22 Dose: 10 mg Sertraline HCl (Zoloft -) 100 mg PO DAILY [facility] Last Admin: 08/20/18 10:21 Dose: 100 mg - Objective Vital Signs: Vital Signs Temperature 98.5 F 08/20/18 14:29 Pulse Rate 85 08/20/18 14:29 Respiratory Rate 18 08/20/18 14:29 Blood Pressure 108/48 L 08/20/18 14:29 O2 Sat by Pulse Oximetry (%) 97 08/19/18 22:00 Vital Signs Period Temp Pulse Resp BP Sys/Ahn Pulse Ox Last 24 Hr 98.1 F-98.8 F 85-99 15-20 108-138/48-66 97 Intake & Output 08/19/18 08/20/18 08/20/18 23:59 07:59 15:59 Intake Total 800 504 400 Balance 800 504 400 Intake: IV 504 Clinimix @ 42ml/hr 504 Oral 800 400 Other: Voiding Method Toilet Bedside Commode # Unmeasured Voids Void 3 2 2 Bowel Movement No Yes # Bowel Movements 1 Body Mass Index (BMI) 34.0 Constitutional: Yes: Well Nourished, No Distress, Calm Eyes: Yes: Conjunctiva Clear, EOM Intact HENT: Yes: Atraumatic, Normocephalic Neck: Yes: Supple, Trachea Midline Cardiovascular: Yes: Regular Rate and Rhythm, S1, S2 Respiratory: Yes: Regular, CTA Bilaterally Gastrointestinal: Yes: Normal Bowel Sounds, Soft, Abdomen, Obese. No: Tenderness ...Rectal Exam: Yes: Deferred Genitourinary: No: CVA Tenderness - Left, CVA Tenderness - Right Musculoskeletal: No: Muscle Pain, Muscle Weakness Extremities: No: Cool, Cyanosis Edema: No Peripheral Pulses WNL: Yes Peripheral Pulses: Left Radial: 2+, Right Radial: 2+, Left Doralis Pedis: 2+, Right Dorsalis Pedis: 2+ Integumentary: No: Erythema, Jaundice, Rash Neurological: Yes: Alert, Oriented Psychiatric: Yes: Alert, Oriented Labs: CBC, BMP 08/20/18 07:45 08/20/18 07:45 INR, PTT INR 0.97 (0.83-1.09) 08/15/18 14:30 Problem List - Problems (1) Partial small bowel obstruction Assessment/Plan: 77yo female MMP with recurrent partial SBO, No acute surgical intervention is indicated. Passing BM and flatus now. Tolerating diet. Cleared of luminal pathlogy with BE. Will follow at [facility] for additional gastrointestinal screening. Provided with contact information if considering surgery. Diet as tolerated Antiemetic therapy Adequate analgesia will follow for serial exams May be discharged Code(s): K56.600 - PARTIAL INTESTINAL OBSTRUCTION, UNSPECIFIED TO CAUSE (2) Anastomotic stricture of small intestine Code(s): K91.89 - OTH POSTPROCEDURAL COMPLICATIONS AND DISORDERS OF DGSTV SYS (3) Chronic bilateral low back pain Code(s): M54.5 - LOW BACK PAIN; G89.29 - OTHER CHRONIC PAIN Qualifiers: Sciatica presence: without sciatica Qualified Code(s): M54.5 - Low back pain; G89.29 - Other chronic pain (4) Diverticulosis Code(s): K57.90 - DVRTCLOS OF INTEST, PART UNSP, W/O PERF OR ABSCESS W/O BLEED Qualifiers: Diverticulosis site: diverticulosis of large intestine Diverticulosis bleeding: diverticulosis without bleeding Qualified Code(s): K57.30 - Diverticulosis of large intestine without perforation or abscess without bleeding (5) Stricture intestinal Code(s): K56.699 - OTHER INTESTNL OBST UNSP TO PARTIAL VERSUS COMPLETE OBST (6) Asthma Code(s): J45.909 - UNSPECIFIED ASTHMA, UNCOMPLICATED Qualifiers: Asthma severity: moderate Asthma persistence: persistent Asthma complication type: uncomplicated Qualified Code(s): J45.40 - Moderate persistent asthma, uncomplicated (7) Chronic pain Code(s): G89.29 - OTHER CHRONIC PAIN Qualifiers: Chronic pain type: chronic pain syndrome Qualified Code(s): G89.4 - Chronic pain syndrome (8) HTN (hypertension) Code(s): I10 - ESSENTIAL (PRIMARY) HYPERTENSION Qualifiers: Hypertension type: essential hypertension Qualified Code(s): I10 - Essential (primary) hypertension (9) Hypothyroid Code(s): E03.9 - HYPOTHYROIDISM, UNSPECIFIED Qualifiers: Hypothyroidism type: unspecified Qualified Code(s): E03.9 - Hypothyroidism , unspecified
[2018-08-20] MEDS: MELATONIN 5 MG TABLETS PO SCH (21:56)
[2018-08-21] MEDS: ONDANSETRON 4 MG/2 ML VIAL IVPB SCH ×2 (03:05→09:16)
[2018-08-21] MEDS ORDERED: PT OWN MED DRAWER 7, Y5N ONE ×2 (05:25→09:08)
[2018-08-21 05:27] VITALS: BP 138/75; PULSE 90; TEMP 97.9
[2018-08-21] MEDS: HEPARIN NA (PORCINE) 5,000 UNITS/ML 1ML VIAL SQ SCH (05:37)
[2018-08-21] MEDS: PREGABALIN 25 MG CAPSULE PO SCH (05:37)
[2018-08-21] MEDS: LEVOTHYROXINE NA 25 MCG TABLET (FP) PO SCH (06:25)
[2018-08-21] MEDS: PANTOPRAZOLE 40 MG TABLET (FP) PO SCH (09:16)
[2018-08-21] MEDS: SERTRALINE HCL 50 MG TABLET (FP) PO SCH (09:16)
[2018-08-21] MEDS: QUINAPRIL HCL 10 MG TABLET (FP) PO SCH (09:17)
[2018-08-21] MEDS: NAPH,MB-DB/K PH,MBDB POWDER PACKET PO SCH (09:17)
[2018-08-21] MEDS: BUDESONIDE/FORMETEROL FUMARATE 160/4.5 mcg INHALER IH SCH (09:18)
--- NOTE | 2018-08-21 11:23 | DS ---
Physical Examination Vital Signs: Vital Signs Temperature 36.6 C 08/21/18 05:26 Pulse Rate 90 08/21/18 05:26 Respiratory Rate 20 08/21/18 05:26 Blood Pressure 138/75 08/21/18 05:26 O2 Sat by Pulse Oximetry (%) 98 08/20/18 21:00 Constitutional: Yes: No Distress, Calm, Obese Cardiovascular: Yes: Regular Rate and Rhythm. No: Gallop, Murmur, Rub Respiratory: Yes: Regular, CTA Bilaterally. No: Rales, Rhonchi, Wheezes Gastrointestinal: Yes: Normal Bowel Sounds, Soft. No: Distention, Tenderness Extremities: Yes: WNL Edema: No Labs: CBC, BMP 08/20/18 07:45 08/20/18 07:45 Discharge Summary Reason For Visit: SMALL BOWEL OBSTRUCTION Current Active Problems Allergy to multiple antibiotics (Acute) Angina at rest (Acute) Asymptomatic bacteriuria (Acute) Avascular necrosis of femoral head (Acute) ESBL E. coli carrier (Acute) History of cholecystectomy (Acute) History of colon polyps (Acute) History of right hemicolectomy (Acute) Hyperlipidemia (Acute) Hypomagnesemia (Acute) Hypophosphatemia (Acute) Incomplete fixation of cecum (Acute) Non-alcoholic fatty liver disease (Acute) Nutrition deficiency due to insufficient food (Acute) SBO (small bowel obstruction) (Acute) Status post appendectomy (Acute) UTI (urinary tract infection) (Acute) Hospital Course: (1) SBO (small bowel obstruction) Code(s): K56.609 - UNSP INTESTNL OBST, UNSP TO PARTIAL VERSUS COMPLETE OBST (2) UTI (urinary tract infection) Code(s): N39.0 - URINARY TRACT INFECTION, SITE NOT SPECIFIED Qualifiers: Urinary tract infection type: acute cystitis Hematuria presence: with hematuria Qualified Code(s): N30.01 - Acute cystitis with hematuria (3) HTN (hypertension) Code(s): I10 - ESSENTIAL (PRIMARY) HYPERTENSION Qualifiers: Hypertension type: essential hypertension Qualified Code(s): I10 - Essential (primary) hypertension (4) Hypothyroid Code(s): E03.9 - HYPOTHYROIDISM, UNSPECIFIED Qualifiers: Hypothyroidism type: unspecified Qualified Code(s): E03.9 - Hypothyroidism , unspecified (5) Asthma Code(s): J45.909 - UNSPECIFIED ASTHMA, UNCOMPLICATED (6) Vertigo Code(s): R42 - DIZZINESS AND GIDDINESS (7) GERD (gastroesophageal reflux disease) Code(s): K21.9 - GASTRO-ESOPHAGEAL REFLUX DISEASE WITHOUT ESOPHAGITIS (8) Anastomotic stricture of small intestine Code(s): K91.89 - OTH POSTPROCEDURAL COMPLICATIONS AND DISORDERS OF DGSTV SYS (9) Anemia Code(s): D64.9 - ANEMIA, UNSPECIFIED Qualifiers: Anemia type: iron deficiency (10) Chronic bilateral low back pain Code(s): M54.5 - LOW BACK PAIN; G89.29 - OTHER CHRONIC PAIN (11) Chronic pain Code(s): G89.29 - OTHER CHRONIC PAIN (12) Hypokalemia Code(s): E87.6 - HYPOKALEMIA (13) Hypomagnesemia Code(s): E83.42 - HYPOMAGNESEMIA (14) Hypophosphatemia Code(s): E83.39 - OTHER DISORDERS OF PHOSPHORUS METABOLISM (15) Hypokalemia Ms Moreland is a very pleasant 78 year old female who comes in with SBO. This was secondary to multiple abdominal surgeries in the past. She was seen by GI and surgery and decided on conservative management. She had an NGT placed with drained a significant amount of bilious fluid. This was followed until drainage stopped and she felt improved. She was kept npo during this time and maintained on clinimix while npo. When NGT was removed her diet was advanced and she tolerated this as well. She was seen by ID and did not have a UTI but colonization, empiric antibiotics were discontinued at that time. Currently she is doing well and has tolerated a diet for the past 24 hours. She is safe for discharge home. 32 minutes spent in preparation of this discharge Condition: Stable - Instructions Diet, Activity, Other Instructions: resume previous diet and activity Referrals: Jong Rodgers MD [Primary Care Provider] - Savannah Stewart MD [Staff Physician] - Disposition: HOME - Home Medications Comprehensive Discharge Medication List: Ambulatory Orders Cholecalciferol (Vitamin D3) [Vitamin D3] 2,000 unit PO DAILY 11/02/16 Diltiazem HCl [Diltiazem 24Hr Cd] 240 mg PO HS 11/02/16 Levothyroxine [Synthroid -] 25 mcg PO DAILY 11/02/16 Montelukast Na [Singulair -] 10 mg PO HS 11/02/16 Nitroglycerin [Nitrostat] 0.4 mg SL PRN PRN 11/02/16 Sertraline HCl [Zoloft -] 100 mg PO DAILY 11/02/16 Sumatriptan Succinate [Imitrex -] 100 mg PO PRN 11/02/16 Polyethylene Glycol 3350 [Miralax 119 gm Btl -] 17 gm PO BID bottle 11/10/16 Acetaminophen [Tylenol .Regular Strength -] 650 mg PO Q4H PRN #0 tablet Quinapril HCl [Accupril -] 10 mg PO DAILY #30 tablet 12/07/16 Meclizine HCl [Antivert -] 25 mg PO TID PRN 11/05/17 Pregabalin [Lyrica] 25 mg PO TID 11/05/17 Potassium Chloride [K-Dur -] 10 meq PO DAILY 12/02/17 Ranitidine HCl 150 mg PO HS 12/02/17 Vitamin E 1,000 unit PO DAILY 12/02/17 Budesonide/Formeterol Fumarate [SYMBICORT 160/4.5mcg -] 2 puff IH PRN PRN Pantoprazole Sodium [Protonix -] 40 mg PO BID 06/21/18 Pantoprazole Sodium [Protonix -] 40 mg PO BID #60 tablet.ec 08/21/18
[2018-08-23 10:15] LABS: ALPHA 2 MACROGLOBULINS,QN 203 mg/dL (110-276); ALT(SGPT)P5P 10 IU/L (0-40); CHOLESTEROL TOTAL 89 mg/dL (100-199); FIBROSIS SCORE 0.12 (0.00-0.21); GGT= 14 IU/L (0-60); GLUCOSE SERUM 74 mg/dL (65-99); HEIGHT 63 in (.); WEIGHT- 192 LBS (.)
== END 2018-08-21 14:21 | disposition home or self-care (01) | DRG 389 ==
LOC: JER 13:02 → JERBED 20:29 → J6S 23:55
PROVIDERS: ADMIT Internal Medicine; ATTEND Internal Medicine
PROC: 0D9670Z Drainage of Stomach with Drainage Device, Via Natural or Artificial Opening (ICD-10-PCS; principal; 2018-08-16)
DX: K56.600 Partial intestinal obstruction, unspecified as to cause (principal); N39.0 Urinary tract infection, site not specified; M87.859 Other osteonecrosis, unspecified femur; D64.9 Anemia, unspecified; I10 Essential (primary) hypertension; I25.10 Atherosclerotic heart disease of native coronary artery without angina pectoris; K29.60 Other gastritis without bleeding; K27.9 Peptic ulcer, site unspecified, unspecified as acute or chronic, without hemorrhage or perforation; K44.9 Diaphragmatic hernia without obstruction or gangrene; D50.9 Iron deficiency anemia, unspecified; I34.1 Nonrheumatic mitral (valve) prolapse; E66.9 Obesity, unspecified; Z68.34 Body mass index [BMI] 34.0-34.9, adult; G89.29 Other chronic pain; E03.9 Hypothyroidism, unspecified; J45.909 Unspecified asthma, uncomplicated; K21.9 Gastro-esophageal reflux disease without esophagitis; M54.5 Low back pain; E87.6 Hypokalemia; E83.42 Hypomagnesemia; K76.0 Fatty (change of) liver, not elsewhere classified; G43.909 Migraine, unspecified, not intractable, without status migrainosus; R73.03 Prediabetes; E83.39 Other disorders of phosphorus metabolism
CPT/HCPCS: 36415; 71045-TC-FY; 74018-TC-FY; 74019-TC-FY; 74021-TC-FY; 74177-TC; 74270-TC-FY; 80048; 80053; 81003; 81015; 82172; 82247; 82272; 82465; 82728; 82947; 82977; 83010; 83520; 83540; 83550; 83605; 83690; 83735; 83883; 84100; 84450; 84460; 84478; 84484; 85025; 85027; 85610; 85730; 86140; 86256; 86671; 87040; 87086; 87186; 90688; 93005; 93010; 93306-TC; 97116-GP; 97161-GP; 99285-25; G0008; J0131; J1644; J7030

== ENCOUNTER 2018-09-16 07:32 | Day surgery (SDC) | payer OTHER ==
[2018-09-16] MEDS ORDERED: IRON SUCROSE INJECTION 200 MG in SODIUM CHLORIDE 100 ML IVPB ONE (10:00)
[2018-09-16] MEDS ORDERED: PORTA CATH FLUSH 10 ML IVPUSH ONE (16:33)
[2018-09-16 16:34] VITALS: BP 148/83; PULSE 106; TEMP 98
== END 2018-09-16 13:45 | disposition home or self-care (01) ==
LOC: JONCCHEMO 07:32 → J7W 13:01 → JONCCHEMO 13:45
PROVIDERS: ATTEND Internal Medicine Hematology & Oncology
PROC: 3E033GC Introduction of Other Therapeutic Substance into Peripheral Vein, Percutaneous Approach (ICD-10-PCS; principal; 2018-09-16)
DX: D50.9 Iron deficiency anemia, unspecified (principal)
CPT/HCPCS: 96365; J1756

== ENCOUNTER 2018-09-23 05:35 | Day surgery (SDC) | payer OTHER ==
[2018-09-23] MEDS ORDERED: IRON SUCROSE INJECTION 200 MG in SODIUM CHLORIDE 100 ML IVPB ONE (10:00)
[2018-09-23 17:16] VITALS: TEMP 98.1
[2018-09-23 17:22] VITALS: BP 131/76; PULSE 75
== END 2018-09-23 13:15 | disposition home or self-care (01) ==
LOC: JONCNONCHE 05:35 → J7W 12:30 → JONCNONCHE 13:15
PROVIDERS: ATTEND Internal Medicine Hematology & Oncology
PROC: 3E033GC Introduction of Other Therapeutic Substance into Peripheral Vein, Percutaneous Approach (ICD-10-PCS; principal; 2018-09-23)
DX: D50.9 Iron deficiency anemia, unspecified (principal)
CPT/HCPCS: 96365; J1756

== ENCOUNTER 2018-10-14 05:32 | Day surgery (SDC) | payer OTHER ==
[2018-10-14] MEDS ORDERED: IRON SUCROSE INJECTION 200 MG in SODIUM CHLORIDE 100 ML IVPB ONE (12:00)
[2018-10-14 17:16] VITALS: BP 142/61; PULSE 105; TEMP 98.1
[2018-10-14] MEDS ORDERED: PORTA CATH FLUSH 10 ML IVPUSH ONE (17:16)
== END 2018-10-14 14:25 | disposition home or self-care (01) ==
LOC: JONCNONCHE 05:32 → J7W 13:11 → JONCNONCHE 14:25
PROVIDERS: ATTEND Internal Medicine Hematology & Oncology
PROC: 3E033GC Introduction of Other Therapeutic Substance into Peripheral Vein, Percutaneous Approach (ICD-10-PCS; principal; 2018-10-14)
DX: D50.9 Iron deficiency anemia, unspecified (principal)
CPT/HCPCS: 96365; J1756

== ENCOUNTER 2018-10-21 05:39 | Day surgery (SDC) | payer OTHER ==
[2018-10-21] MEDS ORDERED: IRON SUCROSE INJECTION 200 MG in SODIUM CHLORIDE 100 ML IVPB ONE (12:00)
[2018-10-21 13:56] VITALS: TEMP 98.2
[2018-10-21] MEDS ORDERED: PORTA CATH FLUSH 10 ML IVPUSH ONE (13:58)
[2018-10-21 13:59] VITALS: BP 137/62; PULSE 98
== END 2018-10-21 13:40 | disposition home or self-care (01) ==
LOC: JONCNONCHE 05:39 → J7W 12:37 → JONCNONCHE 13:40
PROVIDERS: ATTEND Internal Medicine Hematology & Oncology
PROC: 3E033GC Introduction of Other Therapeutic Substance into Peripheral Vein, Percutaneous Approach (ICD-10-PCS; principal; 2018-10-21)
DX: D50.9 Iron deficiency anemia, unspecified (principal)
CPT/HCPCS: 96365; J1756

== ENCOUNTER 2018-10-28 06:47 | Day surgery (SDC) | payer OTHER ==
[2018-10-28] MEDS ORDERED: IRON SUCROSE INJECTION 200 MG in SODIUM CHLORIDE 100 ML IVPB ONE (12:00)
[2018-10-28 14:34] LABS: BASO % 0.3 % (0-2.0); EOS % 4.2 % (0-4.5); HEMATOCRIT 36.5 % (32.4-45.2); HEMOGLOBIN 11.9 GM/dL (10.7-15.3); LYMPH % 17.4 % (8-40); MCH 30.7 pg (25.7-33.7); MCHC 32.5 g/dl (32.0-36.0); MEAN CELL VOLUME 94.4 fl (80-96); MEAN PLT VOLUME 9.7 fl (7.5-11.1); MONO % 4.5 % (3.8-10.2); NEUT % 73.6 % (42.8-82.8); PLATELET COUNT 232 K/MM3 (134-434); RBC 3.87 M/mm3 (3.60-5.2); RDW 15.4 % (11.6-15.6)
[2018-10-28 15:47] LABS: ALBUMIN 3.5 g/dl (3.4-5.0); ALK PHOS 118 U/L (45-117); AMYLASE 22 U/L (25-115); ANION GAP 8 MMOL/L (8-16); BILIRUBIN,TOTAL 0.2 mg/dL (0.2-1); BLOOD UREA NITROGEN 16 mg/dL (7-18); CALCIUM 8.4 mg/dL (8.5-10.1); CHLORIDE 104 mmol/L (98-107); CO2 30 mmol/L (21-32); CREATININE 0.9 mg/dL (0.55-1.3); GLUCOSE,RANDOM 103 mg/dL (74-106); LIPASE 70 U/L (73-393); MAGNESIUM 1.1 mg/dL (1.8-2.4); POTASSIUM 3.7 mmol/L (3.5-5.1); SGOT/AST 14 U/L (15-37); SGPT/ALT 17 U/L (13-61); SODIUM 142 mmol/L (136-145); TOT PROT 6.1 g/dl (6.4-8.2)
[2018-10-28 16:01] LABS: ERYTHROCYTE SEDIMENTATION RATE 2 mm/hr (0-30)
[2018-10-28 16:19] VITALS: TEMP 98.6
[2018-10-28] MEDS ORDERED: PORTA CATH FLUSH 10 ML IVPUSH ONE (17:05)
[2018-10-28 17:06] VITALS: BP 113/47; PULSE 87
== END 2018-10-28 14:15 | disposition home or self-care (01) ==
LOC: JONCNONCHE 06:47 → JONCCHEMO 06:47 → J7W 12:56 → JONCNONCHE 14:15
PROVIDERS: ATTEND Internal Medicine Hematology & Oncology
DX: D50.9 Iron deficiency anemia, unspecified (principal)
CPT/HCPCS: 36415; 80053; 82150; 82607; 82728; 82746; 83540; 83550; 83690; 83735; 84439; 84443; 85025; 85651; 96365; J1756

== ENCOUNTER 2018-10-28 17:11 | Inpatient (IN) | payer OTHER ==
--- NOTE | 2018-10-28 17:18 | PDOC ---
Rapid Medical Evaluation Chief Complaint: Pain, Acute Medical Evaluation: Allergies Allergy/AdvReac Type Severity Reaction Status Date / Time metronidazole [From Flagyl] Allergy Intermediate Swelling Verified 10/28/18 17: 16 amoxicillin Allergy Verified 10/28/18 17:16 lactose AdvReac Verified 10/28/18 17:16 fresh fruit Allergy Vomiting Uncoded 10/28/18 17:16 fresh vegetables Allergy Uncoded 10/28/18 17:16 10/28/18 17:18 I have performed a brief in-person evaluation of this patient. The patient presents with a chief complaint of: abd pain x 1 week w/ 1 e/o n/v w / ? SBO on XR today, sent to ED by Dr Esposito for CT scan. Pt w/ h/o multiple abd surgeries, SBO, diverticulitis, HTN, borderline DM, anemia currently beign tx w / IV iron. pt also reports dysuria x several ays, and states Dr Rodgers is planing on staring her on abx today. No flank pain, f/c Pertinent physical exam findings:Stable and in NAD I have ordered the following:labs The patient will proceed to the ED for further evaluation. 10/28/18 17:22 Discharge Disposition - Diagnosis Abdominal pain Qualifiers: Abdominal location: unspecified location Qualified Code(s): R10.9 - Unspecified abdominal pain - Referrals - Patient Instructions - Post Discharge Activity
[2018-10-28] MEDS ORDERED: MAGNESIUM SULF 50% (8.12 MEQ/2 ML-1 GM VIAL) IVPB ONE (18:00)
--- NOTE | 2018-10-28 18:09 | PDOC ---
Attending Attestation - Resident Resident Name: Rehan Shah - ED Attending Attestation I have performed the following: I have examined & evaluated the patient, The case was reviewed & discussed with the resident, I agree w/resident's findings & plan, Exceptions are as noted - HPI HPI: 10/28/18 18:43 The patient is a 78 year old female, with a significant PMH of severe anemia of unknown etiology on IV iron treatment, hypertension, diverticulitis, coronary artery disease, mitral valve prolapse, gastritis, hiatal hernia, PUD, 51 prior abdominal surgeries c/b SBO, s/p appy/jamar/colectomy/oophorectomy, who presents to the emergency department sent in by Dr Esposito with generalized abdominal pain for CT scan. The patient states she has a morphine pump in place , however, she states her abdominal pain has been worse than usual for the past week. The patient states the abdominal pain is rated 8/10 in intensity. The patient also endorses 4-5 episodes of nausea with emesis (non bloody, non bilious) and chronic diarrhea (non bloody). Pt reports very small watery Bm this morning. The patient also endorses 3 days of dysuria and reports history of frequent UTI. The patient denies chest pain, shortness of breath, headache and dizziness. Denies fever, chills, and constipation. Denies frequency, urgency and hematuria. Allergies: metronidazole, amoxicillin, lactose, [fresh fruit], [fresh vegetables ] - Physicial Exam PE: 10/28/18 18:46 GENERAL: Awake, alert, and fully oriented, in no acute distress EYES: PERRLA, EOMI, sclera anicteric, conjunctiva clear ENT: Oropharynx clear without exudates. Moist mucosa LUNGS: Breath sounds equal, clear to auscultation bilaterally. No wheezes, and no crackles HEART: Regular rate and rhythm, normal S1 and S2, no murmurs, rubs or gallops ABDOMEN: +distention, diffuse ttp. No rebound or guarding. Diminished BS. No CVAT. EXTREMITIES: Normal range of motion, no edema. No clubbing or cyanosis. No cords, erythema, or tenderness NEUROLOGICAL: Normal speech, cranial nerves intact, equal strength and sensation b/l SKIN: Warm, Dry, normal turgor, no rashes or lesions noted. - Medical Decision Making 10/28/18 18:48 78yo F with MMP including frequent SBO and UTI presents to the ED with diffuse abd pain, distended bowel loops on outpt AXR and dysuria. C/f recurrent SBO, will plan for CTAP with PO contrast given >50 reported abd surgeries. Plan to check UA as well to eval for UTI. Labs from earlier today reviewed. Case has been discussed with Dr. Proctor by Dr. Shah. UA/CTAP pending, case has been signed out to oncoming attending for further mgmt /dispo.
--- NOTE | 2018-10-28 18:29 | PDOC ---
History of Present Illness - General Chief Complaint: Pain, Acute Stated Complaint: PCP SENT/CATSCAN Time Seen by Provider: 10/28/18 17:21 History Source: Patient, Spouse Exam Limitations: No Limitations - History of Present Illness Initial Comments: Patient is a 78 y/o F w/ PMHx 51 prior abdominal Sx including right hemicolectomy w/ ileo-transverse colon anastomosis and s/p CCY, adhesions, SBO, diverticulitis, HTN, migraines, angina on PRN nitroglycerin, CAD, unspecified arrhythmia on diltiazem, borderline DM, severe anemia of unknown etiology on IV iron Tx, chronic diarrhea, urinary tract colonization with E coli and numerous UTIs, lives in constant abdominal pain w/ morphine pump installed, p/w 1 week worsening abdominal pain throughout all quadrants most focally in lower quadrants a/w 4-5 episodes of NBNB vomiting and several days dysuria with severe burning on urination. She is currently passing flatus and having minimal volume watery bowel movements. Denies CP, SOB, PCP is Dr. Rodgers and was to begin ABx for presumed UTI today. Presented on outpatient basis for IV iron infusion, underwent AXR with complaint of pain which revealed significant small bowel distention. Labs were performed earlier today which were unremarkable apart from hypomagnesemia; H/H stable. 10/28/18 18:19 Past History - Travel Traveled outside of the country in the last 30 days: No Close contact w/someone who was outside of country & ill: No - Past Medical History Allergies/Adverse Reactions: Allergies Allergy/AdvReac Type Severity Reaction Status Date / Time metronidazole [From Flagyl] Allergy Intermediate Swelling Verified 10/28/18 17: 16 amoxicillin Allergy Verified 10/28/18 17:16 lactose AdvReac Verified 10/28/18 17:16 fresh fruit Allergy Vomiting Uncoded 10/28/18 17:16 fresh vegetables Allergy Uncoded 10/28/18 17:16 Home Medications: Ambulatory Orders Cholecalciferol (Vitamin D3) [Vitamin D3] 2,000 unit PO DAILY 11/02/16 Diltiazem HCl [Diltiazem 24Hr Cd] 240 mg PO HS 11/02/16 Levothyroxine [Synthroid -] 25 mcg PO DAILY 11/02/16 Montelukast Na [Singulair -] 10 mg PO HS 11/02/16 Nitroglycerin [Nitrostat] 0.4 mg SL PRN PRN 11/02/16 Sertraline HCl [Zoloft -] 100 mg PO DAILY 11/02/16 Sumatriptan Succinate [Imitrex -] 100 mg PO PRN 11/02/16 Polyethylene Glycol 3350 [Miralax 119 gm Btl -] 17 gm PO BID bottle 11/10/16 Acetaminophen [Tylenol .Regular Strength -] 650 mg PO Q4H PRN #0 tablet Quinapril HCl [Accupril -] 10 mg PO DAILY #30 tablet 12/07/16 Meclizine HCl [Antivert -] 25 mg PO TID PRN 11/05/17 Pregabalin [Lyrica] 25 mg PO TID 11/05/17 Potassium Chloride [K-Dur -] 10 meq PO DAILY 12/02/17 Ranitidine HCl 150 mg PO HS 12/02/17 Vitamin E 1,000 unit PO DAILY 12/02/17 Budesonide/Formeterol Fumarate [SYMBICORT 160/4.5mcg -] 2 puff IH PRN PRN Pantoprazole Sodium [Protonix -] 40 mg PO BID 06/21/18 Pantoprazole Sodium [Protonix -] 40 mg PO BID #60 tablet.ec 08/21/18 Anemia: Yes (IRON DEFICIENCY ANEMIA) Asthma: Yes (NO RECENT ATTACK) Cancer: No Cardiac Disorders: Yes (MITRAL VALVE PROLAPSE,ASHD) CVA: No COPD: No CHF: No DVT: No Dementia: No Diabetes: No GI Disorders: Yes (H/O COLON POLYPS,GERD,HIATAL HERNIA,PEPTIC ULCERS) Disorders: Yes (UTI'S) HTN: Yes Hypercholesterolemia: No Liver Disease: Yes (NON ALCOHOLIC FATTY LIVER) Seizures: No Thyroid Disease: Yes (HYPOTYHROIDISM) - Surgical History Abdominal Surgery: Yes (SX FOR BOWEL OBSTRUCTIONS AND ADHESIONS x 51 times) Appendectomy: Yes Cardiac Surgery: No Cholecystectomy: Yes (OPEN) GI Surgery: Yes Lung Surgery: No Neurologic Surgery: No Orthopedic Surgery: Yes (r shoulder replacement, then humerus fracture repair) - Immunization History Immunization Up to Date: Yes - Suicide/Smoking/Psychosocial Hx Smoking Status: No Smoking History: Unknown if ever smoked Have you smoked in the past 12 months: No Number of Cigarettes Smoked Daily: 0 Hx Alcohol Use: No Drug/Substance Use Hx: No Substance Use Type: None Hx Substance Use Treatment: No Abd/GI Specific PMHX - Complaint Specific PMHX Diverticulitis: Yes Gall Bladder Disease: Yes (s/p CCY) GERD: No GI Ulcer Disease: No Review of Systems - Review of Systems Comments:: As per HPI 10/28/18 18:32 *Physical Exam - Vital Signs Last Vital Signs Temp Pulse Resp BP Pulse Ox 98.2 F 93 H 18 138/68 96 10/28/18 17:16 10/28/18 17:16 10/28/18 17:16 10/28/18 17:16 10/28/18 17:16 - Physical Exam Comments: Gen: A&Ox3, in mild distress HEENT: NC/AT, s/p b/l cataract Sx, EOMI, MMM Neck: supple, no JVD, no LAD CV: RRR no m/r/g Resp: CTA b/l Abd: high-pitched hyperactive bowel sounds most pronounced in lower quadrants, diffusely tender most significantly over lower quadrants, firm and distended, no rebound tenderness, multiple surgical scars observed Extremities: 2+ pulses, wwp, no edema, no calf tenderness Neuro: grain grader, motor, sensory systems w/o focal deficit Psych: normal mood, normal affect Skin: warm, dry, normal turgor 10/28/18 18:32 Moderate Sedation - Procedure Monitoring Vital Signs: Procedure Monitoring Vital Signs Temperature 98.2 F 10/28/18 17:16 Pulse Rate 93 H 10/28/18 17:16 Respiratory Rate 18 10/28/18 17:16 Blood Pressure 138/68 10/28/18 17:16 O2 Sat by Pulse Oximetry (%) 96 10/28/18 17:16 ED Treatment Course - RADIOLOGY Radiology Studies Ordered: Category Date Time Status ABDOMEN & PELVIS CT WITH CONTR [CT] Stat CT Scan 10/28/18 18:03 Ordered Medical Decision Making - Medical Decision Making Additional blood studies unnecessary as they were drawn earlier today. Will treat hypomagnesemia. Will attempt to collect urine for UA/UCx. CT a/p w/ contrast ordered. Consults placed to surgery and hematology. Treating nausea and pain with Zofran/Morphine. 10/28/18 18:40 Treating UTI empirically w/ 1 dose meropenem 10/28/18 18:46 UA is positive 10/28/18 20:19 *DC/Admit/Observation/Transfer Diagnosis at time of Disposition: SBO (small bowel obstruction) - Discharge Dispostion Decision to Admit order: Yes - Referrals Referrals: Jong Rodgers MD [Primary Care Provider] - - Patient Instructions - Post Discharge Activity
[2018-10-28] MEDS ORDERED: morphine CARPU-JECT 4 MG/1 ML DISP.SYRIN IVPUSH ONE (18:35)
[2018-10-28] MEDS ORDERED: ONDANSETRON 4 MG/2 ML VIAL IVPUSH ONE (18:35)
[2018-10-28] MEDS ORDERED: MEROPENEM 1 GM in DEXTROSE 5%-WATER 100 ML IVPB ONE (18:45)
[2018-10-28] MEDS ORDERED: MAGNESIUM 1GM/D5W - 2 GM/200 ML IVPB IVPB ONE (19:17)
[2018-10-28] MEDS ORDERED: morphine SULFATE 4 MG/ML VIAL ONE (19:17)
[2018-10-28] MEDS ORDERED: ONDANSETRON 4 MG/2 ML VIAL ONE (19:17)
--- NOTE | 2018-10-28 19:43 | PDOC ---
*Physical Exam - Vital Signs Last Vital Signs Temp Pulse Resp BP Pulse Ox 98.2 F 93 H 18 138/68 99 10/28/18 17:16 10/28/18 17:16 10/28/18 17:16 10/28/18 17:16 10/28/18 19:24 ED Treatment Course - Medications Given in the ED: ED Medications Discontinued Medications Generic Name Dose Route Start Last Admin Trade Name Alejandra PRN Reason Stop Dose Admin Magnesium Sulfate 2 gm 10/28/18 18:00 10/28/18 19:37 Magnesium Sulfate IVPB 10/28/18 18:01 2 gm ONCE ONE Administration Morphine Sulfate 4 mg 10/28/18 18:35 10/28/18 19:27 Morphine Injection - IVPUSH 10/28/18 18:36 4 mg ONCE ONE Administration Ondansetron HCl 4 mg 10/28/18 18:35 10/28/18 19:27 Zofran Injection IVPUSH 10/28/18 18:36 4 mg ONCE ONE Administration Medical Decision Making - Medical Decision Making 10/28/18 19:42 I received pt on signout and she has a hx sig for 50+ abdominal surgeries and multiple adhesions. She is back as she was found to have dilated loops of bowel at her doc's office , so she was sent for eval. *DC/Admit/Observation/Transfer Diagnosis at time of Disposition: Abdominal pain Qualifiers: Abdominal location: unspecified location Qualified Code(s): R10.9 - Unspecified abdominal pain - Referrals Referrals: Jong Rodgers MD [Primary Care Provider] - - Patient Instructions - Post Discharge Activity
[2018-10-28 19:59] LABS: URINE APPEARANCE SLCLOUDY; URINE BILIRUBIN NEGATIVE (<2.0 mg/dL); URINE COLOR YELLOW; URINE GLUCOSE (UA) NEGATIVE (NEGATIVE); URINE KETONE NEGATIVE (NEGATIVE); URINE LEUK ESTERASE 3+ (NEGATIVE); URINE NITRITE NEGATIVE (NEGATIVE); URINE PROTEIN NEGATIVE (NEGATIVE); URINE UROBILINOGEN NEGATIVE mg/dL (0.2-1.0)
[2018-10-28 20:08] LABS: EPI CELLS RARE /HPF (FEW); URINE BACTERIA RARE /hpf (NONE SEEN); URINE MUCUS RARE
[2018-10-29] MEDS ORDERED: MORPHINE SULFATE 2 MG/ML VIAL IVPUSH ONE ×2 (00:19→06:25)
[2018-10-29] MEDS ORDERED: NITROGLYCERIN SUBLINGUAL 1/150 0.4 MG TAB SL PRN (00:24)
[2018-10-29] MEDS ORDERED: MECLIZINE HCL 25 MG TABLET (FP) PO PRN (00:24)
[2018-10-29] MEDS ORDERED: ACETAMINOPHEN 325 MG TABLET (FP) PO PRN (00:24)
[2018-10-29] MEDS ORDERED: LACTATED RINGERS SOLUTION 1,000 ML IV SCH (00:30)
--- NOTE | 2018-10-29 00:35 | HP ---
CHIEF COMPLAINT: abdominal pain PCP: Dr. Rodgers HISTORY OF PRESENT ILLNESS: 78 year old female with a past medical history of 51 prior abdominal surgeries ( hemicolectomy, ileotransverse anastamosis, last surgery around 25 years ago), adhesions, SBOs, diverticulitis, hypertension, angina, CAD, arrhythmias, chronic anemia, and frequent urinary tract infections with multiple drug resistant organisms presents to the hospital for a 2 week history of abdominal pain. Patient describes the pain as sharp, 7/10, and non-radiating, located in the suprapubic region, RLQ and RUQ for two weeks. Reports intermittent non- bloody, non-bilious nausea and vomiting since 2 weeks ago, reporting 4-5 episodes. States that her last BM was 3-4 days ago, but she is passing gas. States that whenever she goes to use the restroom, the stool "explodes" out of her and is liquid in nature. Patient states that she saw Dr. Esposito today for an iron infusion, who afterwards instructed her to get an X-ray of her abdomen that showed distended intestines. Currently denies chest pain, shortness of breath, fevers, chills, nausea, vomiting, dysuria or urinary frequency. She had her last colonoscopy 8-9 months ago. ER course was notable for: (1) UA + for WBC 148 adn LE 3+ (2) CT abd/pelvis showed dilated small bowel loops in right of abdomen/pelvis suggestive of partial SBO, diffuse hepatic steatosis, mild biliary duct dilatation, s/p cholecystectomy, bilateral femoral head avascular necrosis (3) Recent Travel: denies PAST MEDICAL HISTORY: as stated above PAST SURGICAL HISTORY: 51 abdominal surgeries Social History: Smoking: never Alcohol: never Drugs: never Family History: mother (breast CA), father (lung CA) Allergies metronidazole [From Flagyl] Allergy (Intermediate, Verified 10/28/18 17:16) Swelling amoxicillin Allergy (Verified 10/28/18 17:16) lactose Adverse Reaction (Verified 10/28/18 17:16) fresh fruit Allergy (Uncoded 10/28/18 17:16) Vomiting fresh vegetables Allergy (Uncoded 10/28/18 17:16) HOME MEDICATIONS: Home Medications Medication Instructions Recorded Cholecalciferol (Vitamin D3) 2,000 unit PO DAILY 11/02/16 [Vitamin D3] Diltiazem HCl [Diltiazem 24Hr Cd] 240 mg PO HS 11/02/16 Levothyroxine [Synthroid -] 25 mcg PO DAILY 11/02/16 Montelukast Na [Singulair -] 10 mg PO HS 11/02/16 Nitroglycerin [Nitrostat] 0.4 mg SL PRN PRN 11/02/16 Sertraline HCl [Zoloft -] 100 mg PO DAILY 11/02/16 Sumatriptan Succinate [Imitrex -] 100 mg PO PRN 11/02/16 Polyethylene Glycol 3350 [Miralax 17 gm PO BID bottle 11/10/16 119 gm Btl -] Acetaminophen [Tylenol .Regular 650 mg PO Q4H PRN #0 tablet 12/07/16 Strength -] Quinapril HCl [Accupril -] 10 mg PO DAILY #30 tablet 12/07/16 Meclizine HCl [Antivert -] 25 mg PO TID PRN 11/05/17 Pregabalin [Lyrica] 25 mg PO TID 11/05/17 Potassium Chloride [K-Dur -] 10 meq PO DAILY 12/02/17 Ranitidine HCl 150 mg PO HS 12/02/17 Vitamin E 1,000 unit PO DAILY 12/02/17 Budesonide/Formeterol Fumarate 2 puff IH PRN PRN 06/21/18 [SYMBICORT 160/4.5mcg -] Pantoprazole Sodium [Protonix -] 40 mg PO BID 06/21/18 Pantoprazole Sodium [Protonix -] 40 mg PO BID #60 tablet.ec 08/21/18 REVIEW OF SYSTEMS CONSTITUTIONAL: Absent: fever, chills, diaphoresis, generalized weakness, malaise, loss of appetite, weight change HEENT: Absent: rhinorrhea, nasal congestion, throat pain, throat swelling, difficulty swallowing, mouth swelling, ear pain, eye pain, visual changes CARDIOVASCULAR: Absent: chest pain, syncope, palpitations, irregular heart rate, lightheadedness , peripheral edema RESPIRATORY: Absent: cough, shortness of breath, dyspnea with exertion, orthopnea, wheezing, stridor, hemoptysis GASTROINTESTINAL:abdominal pain, abdominal distension, nausea, vomiting Absent: diarrhea, constipation, melena, hematochezia GENITOURINARY: Absent: dysuria, frequency, urgency, hesitancy, hematuria, flank pain, genital pain MUSCULOSKELETAL: Absent: myalgia, arthralgia, joint swelling, back pain, neck pain SKIN: Absent: rash, itching, pallor HEMATOLOGIC/IMMUNOLOGIC: Absent: easy bleeding, easy bruising, lymphadenopathy, frequent infections ENDOCRINE: Absent: unexplained weight gain, unexplained weight loss, heat intolerance, cold intolerance NEUROLOGIC: Absent: headache, focal weakness or paresthesias, dizziness, unsteady gait, seizure, mental status changes, bladder or bowel incontinence PSYCHIATRIC: Absent: anxiety, depression, suicidal or homicidal ideation, hallucinations. PHYSICAL EXAMINATION Vital Signs - 24 hr 10/28/18 10/28/18 10/28/18 17:16 19:24 23:40 Temperature 98.2 F 98.3 F Pulse Rate 93 H Pulse Rate [ 94 H Apical] Respiratory 18 18 Rate Blood Pressure 138/68 Blood Pressure 136/63 [Left Arm] O2 Sat by Pulse 96 99 95 Oximetry (%) 10/28/18 23:48 Temperature Pulse Rate Pulse Rate [ Apical] Respiratory Rate Blood Pressure Blood Pressure [Left Arm] O2 Sat by Pulse 99 Oximetry (%) GENERAL: A&Ox3, no acute distress EYES: PERRLA, EOMI ENT: Moist mucus membranes NECK: No JVD LUNGS: CTA, no wheezes HEART: RRR, mild 2/6 systolic murmur appreciated on exam, R sided port identified on chest ABDOMEN: Multiple healed abdominal incision scars noted, belly is soft, BS present but diminished, tender to palpation in the RLQ, suprapubic region, and RUQ, morphine pump is palpated in the RLQ MUSCULOSKELETAL: No CVA Tenderness EXTREMITIES: 2+ pulses, no edema. NEUROLOGICAL: Cranial nerves II-XII intact. Laboratory Results - last 24 hr 10/28/18 19:33 Urine Color Yellow Urine Appearance Slcloudy Urine pH 7.0 Ur Specific [place] 1.031 Urine Protein Negative Urine Glucose (UA) Negative Urine Ketones Negative Urine Blood Negative Urine Nitrite Negative Urine Bilirubin Negative Urine Urobilinogen Negative Ur Leukocyte Esterase 3+ H Urine WBC (Auto) 148 Urine RBC (Auto) 10 Ur Epithelial Cells Rare Urine Bacteria Rare Urine Mucus Rare ASSESSMENT/PLAN: 78 year old female with a history of 51 prior abdominal surgeries (hemicolectomy , ileotransverse anastamosis, last surgery around 25 years ago), adhesions, SBOs , diverticulitis, hypertension, angina, CAD, arrhythmias, chronic anemia, and frequent urinary tract infections with multiple drug resistant organisms presents for abdominal pain, nausea, vomiting, was found to have partial SBO #Abdominal Pain: likely 2/2 partial small bowel obstruction vs urinary tract infection -CT abd/pelvis showed dilated small bowel loops in right of abdomen/pelvis suggestive of partial SBO, diffuse hepatic steatosis, mild biliary duct dilatation, s/p cholecystectomy, bilateral femoral head avascular necrosis -keep on CLD for now -lactated ringers @ 83cc/hr -continue protonix for now -surgery consulted, not urgent surgical emergency -GI Dr. Stewart consulted for additional recommendations as patient reports he is outpatient GI physician -morphine 1mg given now for pain, observe -meclizine if patient becomes dizzy #Urinary Tract Infection: patient has a history of multiple UTIs with resistant organisms, could possibly be colonization as well. Given symptoms of suprapubic pain, will initiate treatment -start ertapenem abx -ID consult Dr. Ruvalcaba #Anemia: patient's hgb is stable at 11.9, received iron infusion earlier in the day -consult Dr. Esposito -monitor H&H in AM #Arrhythmia: per chart, patient has had previous unknown arrhythmia for which she is on diltiazem -continue diltiazem 240mg PO HS #Hypertension: patient normotensive at present -continue quinapril 10mg PO daily #Asthma: chronic -continue symbicort, montelukast #CAD: stable angina -continue nitroglycerin PRN #Hypothyroidism: chronic -continue levothyroxine #FEN -LR @ 83cc/hr -lytes normal, check in AM -CLD for now #Prophylaxis -lovenox prophelaxis #Disposition -admit obs Visit type - Emergency Visit Emergency Visit: Yes ED Registration Date: 10/28/18 Care time: The patient presented to the Emergency Department on the above date and was hospitalized for further evaluation of their emergent condition. - New Patient This patient is new to me today: Yes Date on this admission: 10/29/18 - Critical Care Critical Care patient: No
[2018-10-29 01:16] VITALS: BMI 32.1
--- NOTE | 2018-10-29 04:39 | PN ---
Teaching Attending Note Name of Resident: Sukhwinder Kirkpatrick ATTENDING PHYSICIAN STATEMENT I saw and evaluated the patient. I reviewed the resident's note and discussed the case with the resident. I agree with the resident's findings and plan as documented. SUBJECTIVE: OBJECTIVE: patient is doing well the pump is in her abdomen complaining of vague abdominal pain s1 and s2 RRR lungs CTA good air entry no edema ASSESSMENT AND PLAN: 78 year old female with a history of 51 prior abdominal surgeries (hemicolectomy , ileotransverse anastamosis, last surgery around 25 years ago), adhesions, SBOs , diverticulitis, hypertension, angina, CAD, arrhythmias, chronic anemia, and frequent urinary tract infections with multiple drug resistant organisms presents for abdominal pain, nausea, vomiting, was found to have partial SBO #Abdominal Pain: likely 2/2 partial small bowel obstruction vs urinary tract infection -keep on CLD for now -lactated ringers @ 83cc/hr -surgery consulted, not urgent surgical emergency -GI Dr. Stewart consulted for additional recommendations as patient reports he is outpatient GI physician -morphine 1mg given now for pain, observe -meclizine if patient becomes dizzy #Urinary Tract Infection: patient has a history of multiple drug resistant organisms UTI in the past -start ertapenem abx -ID consult Dr. Ruvalcaba #Anemia: patient's hgb is stable at 11.9, received iron infusion earlier in the day -consult Dr. Esposito -monitor H&H in AM #Arrhythmia: per chart, patient has had previous unknown arrhythmia for which she is on diltiazem -continue diltiazem 240mg PO HS #Hypertension: patient normotensive at present -continue quinapril 10mg PO daily #Asthma: chronic -continue home medication #CAD: stable angina -continue nitroglycerin PRN #Hypothyroidism: chronic -continue levothyroxine
[2018-10-29] MEDS: LEVOTHYROXINE NA 25 MCG TABLET (FP) PO SCH (06:03)
[2018-10-29] MEDS: PREGABALIN 25 MG CAPSULE PO SCH ×3 (06:03→23:02)
[2018-10-29 07:44] LABS: HEMATOCRIT 31.9 % (32.4-45.2); HEMOGLOBIN 10.6 GM/dL (10.7-15.3); MCH 31.2 pg (25.7-33.7); MCHC 33.3 g/dl (32.0-36.0); MEAN CELL VOLUME 93.7 fl (80-96); MEAN PLT VOLUME 9.3 fl (7.5-11.1); PLATELET COUNT 204 K/MM3 (134-434); RBC 3.41 M/mm3 (3.60-5.2); RDW 15.3 % (11.6-15.6); WHITE BLOOD COUNT 5.4 K/mm3 (4.0-10.0)
[2018-10-29] MEDS ORDERED: DEXTROSE 5%-LACTATED RINGERS 1,000 ML IV SCH (07:45)
[2018-10-29 08:08] LABS: ANION GAP 7 MMOL/L (8-16); BLOOD UREA NITROGEN 9 mg/dL (7-18); CALCIUM 8.3 mg/dL (8.5-10.1); CHLORIDE 103 mmol/L (98-107); CO2 32 mmol/L (21-32); CREATININE 0.7 mg/dL (0.55-1.3); GLUCOSE,RANDOM 81 mg/dL (74-106); MAGNESIUM 1.8 mg/dL (1.8-2.4); PHOSPHOROUS 3.6 mg/dL (2.5-4.9); POTASSIUM 3.4 mmol/L (3.5-5.1); SODIUM 142 mmol/L (136-145)
[2018-10-29] MEDS ORDERED: D5-LR+20 MEQ KCL - 20 MEQ/1,000 ML INFUS.BAG IV SCH (08:30)
[2018-10-29] MEDS ORDERED: KCL 10 MEQ IVPB 10 MEQ/100 ML INFUS.BAG IVPB SCH (08:30)
[2018-10-29] MEDS ORDERED: PT OWN MED DRAWER 7, Y5N ONE ×2 (08:52→14:12)
[2018-10-29] MEDS ORDERED: DEXTROSE 5%-LACTATED RINGERS 1,000 ML with POTASSIUM CHLORIDE 20 MEQ IVPB SCH (09:15)
[2018-10-29] MEDS: ENOXAPARIN NA (PORCINE) 40 MG/0.4 ML DISP.SYRIN SQ SCH (09:16)
[2018-10-29] MEDS: PANTOPRAZOLE 40 MG TABLET (FP) PO SCH ×2 (09:16→23:02)
[2018-10-29] MEDS: SERTRALINE HCL 50 MG TABLET (FP) PO SCH (09:16)
[2018-10-29] MEDS: CHOLECALCIFEROL (VITAMIN D3) 1,000 UNIT TABLET (FP) PO SCH (09:16)
[2018-10-29] MEDS: POTASSIUM CHLORIDE TABS 10 MEQ TABLET.ER (FP) PO SCH (09:16)
[2018-10-29] MEDS: KCL 10 MEQ IVPB 10 MEQ/100 ML INFUS.BAG IVPB SCH ×2 (09:16→12:10)
[2018-10-29] MEDS: QUINAPRIL HCL 10 MG TABLET (FP) PO SCH (09:17)
[2018-10-29] MEDS ORDERED: POLYETHYLENE GLYCOL 3350 119 GM BTL PO SCH (10:00)
[2018-10-29] MEDS ORDERED: ERTAPENEM SODIUM 1 GM/50 ML PRE-DOCKED IVPB SCH ×2 (10:00)
[2018-10-29] MEDS ORDERED: ERTAPENEM SODIUM 1 GM in SODIUM CHLORIDE 50 ML IVPB SCH (10:00)
[2018-10-29] MEDS: POTASSIUM CHLORIDE 20 MEQ in DEXTROSE 5%-LACTATED RINGERS 1,000 ML IVPB SCH ×2 (10:33→23:01)
[2018-10-29] MEDS: BUDESONIDE/FORMETEROL FUMARATE 160/4.5 mcg INHALER IH SCH ×2 (10:34→23:03)
[2018-10-29 12:43] LABS: LIPASE 56 U/L (73-393)
[2018-10-29] MEDS ORDERED: SUMAtriptan SUCCINATE 50 MG TABLET PO ONE ×2 (14:00→16:00)
--- NOTE | 2018-10-29 14:15 | PN ---
Progress Note (short form) - Note Progress Note: ID CONSULT DICTATED RECURRENT UTI HX ESBL PCN ALLERGY ? ILEUS SECONDARY TO UTI AWAIT C/S EMPIRIC ERTAPENEM
--- NOTE | 2018-10-29 14:33 | PN ---
Physical Exam: SUBJECTIVE: Patient seen and examined, abdominal pain improved. Had some clears this AM, no further nausea/vomiting. Passing gas but no BM yet as discussed OBJECTIVE: Vital Signs Period Temp Pulse Resp BP Sys/Ahn Pulse Ox Last 24 Hr 98.1 F-98.7 F 93-106 18-18 104-138/50-71 94-99 GENERAL: The patient is awake, alert, and fully oriented, in no acute distress. HEAD: Normal with no signs of trauma. EYES: PERRL, extraocular movements intact, sclera anicteric, conjunctiva clear. No ptosis. ENT: Ears normal, nares patent, oropharynx clear without exudates, moist mucous membranes. NECK: Trachea midline, full range of motion, supple. LUNGS: Breath sounds equal, clear to auscultation bilaterally, no wheezes, no crackles, no accessory muscle use. HEART: Regular rate and rhythm, S1, S2 ABDOMEN: soft, mild tenderness right and left ava-umbilical region and suprapubic region, positive normoactive bowel sounds, no voluntary or involuntary guarding or rigidity, positive bowel sounds, RLQ morphine pump palpated under the skin EXTREMITIES: 2+ pulses, warm, well-perfused, no edema. NEUROLOGICAL: Cranial nerves II through XII grossly intact. Normal speech, gait not observed. PSYCH: Normal mood, normal affect. SKIN: Warm, dry, normal turgor, no rashes or lesions noted Laboratory Results - last 24 hr 10/28/18 10/29/18 10/29/18 19:33 06:45 06:45 WBC 5.4 RBC 3.41 L Hgb 10.6 L Hct 31.9 L MCV 93.7 MCH 31.2 MCHC 33.3 RDW 15.3 Plt Count 204 MPV 9.3 Sodium 142 Potassium 3.4 L Chloride 103 Carbon Dioxide 32 Anion Gap 7 L BUN 9 Creatinine 0.7 Creat Clearance w eGFR > 60 Random Glucose 81 Calcium 8.3 L Phosphorus 3.6 Magnesium 1.8 Lipase 56 L Urine Color Yellow Urine Appearance Slcloudy Urine pH 7.0 Ur Specific [place] 1.031 Urine Protein Negative Urine Glucose (UA) Negative Urine Ketones Negative Urine Blood Negative Urine Nitrite Negative Urine Bilirubin Negative Urine Urobilinogen Negative Ur Leukocyte Esterase 3+ H Urine WBC (Auto) 148 Urine RBC (Auto) 10 Ur Epithelial Cells Rare Urine Bacteria Rare Urine Mucus Rare Active Medications Generic Name Dose Route Start Last Admin Trade Name Freq PRN Reason Stop Dose Admin Acetaminophen 650 mg 10/29/18 00:24 Tylenol - PO Q4H PRN FEVER Budesonide/Formoterol Fumarate 2 puff 10/29/18 10:00 10/29/18 10:34 Symbicort 160/4.5mcg - IH 2 puff BID TANA Administration Cholecalciferol 2,000 unit 10/29/18 10:00 10/29/18 09:16 Vitamin D3 - PO 2,000 unit DAILY TANA Administration Diltiazem HCl 240 mg 10/29/18 22:00 Cardizem Cd - PO HS [facility] Enoxaparin Sodium 40 mg 10/29/18 10:00 10/29/18 09:16 Lovenox - SQ 40 mg DAILY [facility] Administration Potassium Chloride 20 meq/ 1,010 mls @ 83 mls/hr 10/29/18 09:15 10/29/18 10: 33 Dextrose/Lactated Ringer's IVPB 83 mls/hr Q12H TANA Administration Ertapenem 1 gm/ Sodium 50 mls @ 50 mls/hr 10/30/18 10:00 Chloride IVPB DAILY [facility] Protocol Levothyroxine Sodium 25 mcg 10/29/18 07:00 10/29/18 06:03 Synthroid - PO 25 mcg DAILY@0700 [facility] Administration Meclizine HCl 25 mg 10/29/18 00:24 Antivert - PO TID PRN DIZZINESS Montelukast Sodium 10 mg 10/29/18 22:00 Singulair - PO HS [facility] Morphine Sulfate 1 mg 10/29/18 14:25 Morphine Sulfate IVPUSH Q12H PRN PAIN LEVEL 7 - 10 Nitroglycerin 0.4 mg 10/29/18 00:24 Nitrostat - SL Q5M PRN CHEST PAIN Pantoprazole Sodium 40 mg 10/29/18 10:00 10/29/18 09:16 Protonix - PO 40 mg BID [facility] Administration Polyethylene Glycol 17 gm 10/29/18 10:00 Miralax (For Daily Use) - PO BID [facility] Potassium Chloride 10 meq 10/29/18 10:00 10/29/18 09:16 K-Dur - PO 10 meq DAILY [facility] Administration Pregabalin 25 mg 10/29/18 06:00 10/29/18 14:14 Lyrica - PO 25 mg TID [facility] Administration Quinapril HCl 10 mg 10/29/18 10:00 10/29/18 09:17 Accupril - PO 10 mg DAILY [facility] Administration Ranitidine HCl 150 mg 10/29/18 22:00 Zantac - PO HS [facility]NA Sertraline HCl 100 mg 10/29/18 10:00 10/29/18 09:16 Zoloft - PO 100 mg DAILY [facility] Administration Sumatriptan Succinate 50 mg 10/29/18 16:00 Imitrex - PO 10/29/18 16:[address] A/P results reviewed Abdomen Xray results reviewed ASSESSMENT/PLAN: 78 yof with PMhx of multiple abdominal surgeries (51 per patient), prior admissions with SBO managed conservatively, last in 08/2018, chronic abdominal pain on morphine pump, chronic anemia suspected from chronic GI losses from ava -anastomotic ulcer on weekly iron infusion via Portacath,CAD, angina, migraine admitted with abdominal pain, partial SBO and urinary symptoms. -Partial SBO -Lower uncomplicated UTI (h/o ESBL in urine) -Hypokalemia -Chronic abdominal pain on morphine pump (reports gets 1 mg daily with occasional breakthrough 1 m dose) -H/o Ava-anastomotic ulcer with stricture s/p dilatation -Chronic anemia on weekly Iron infusions via Jason-cath -CAD/angina pectoris -Migraine Plan: Had clears this AM, no concerns but no BM yet, good bowel sounds Repeat abdominal xray noted, contrast in colon. ?Partial vs resolving SBO. NPO for now given ongoing pain, no further BM. IVF, GI/surgery input. Stool studies if recurrent diarrhea. Caution with morphine Replete K, add K to IVF. Ertapenem, ID input noted, follow up urine cultures. Imitrex x1 for migrain headaches. Diltiazem DVTPPX lovenox dispo pending clinical improvement. Plan discussed with patient and nursing, hematology, all questions answered. Visit type - Emergency Visit Emergency Visit: Yes ED Registration Date: 10/29/18 Care time: The patient presented to the Emergency Department on the above date and was hospitalized for further evaluation of their emergent condition. - New Patient This patient is new to me today: Yes Date on this admission: 10/29/18 - Critical Care Critical Care patient: No - Discharge Referral Referred to [facility] Med [facility] No
--- NOTE | 2018-10-29 15:52 | PN ---
Progress Note (short form) - Note Progress Note: Patient seen in follow up. No new complaints. No significant events overnight. Presently on clear liquid diet. Denies vomiting. Inpatient Meds reviewed. Current Medications Generic Name Dose Route Start Last Admin Trade Name Freq PRN Reason Stop Dose Admin Acetaminophen 650 mg 10/29/18 00:24 Tylenol - PO Q4H PRN FEVER Budesonide/Formoterol Fumarate 2 puff 10/29/18 10:00 10/29/18 10:34 Symbicort 160/4.5mcg - IH 2 puff BID [facility] Administration Cholecalciferol 2,000 unit 10/29/18 10:00 10/29/18 09:16 Vitamin D3 - PO 2,000 unit DAILY [facility] Administration Diltiazem HCl 240 mg 10/29/18 22:00 Cardizem Cd - PO HS [facility] Enoxaparin Sodium 40 mg 10/29/18 10:00 10/29/18 09:16 Lovenox - SQ 40 mg DAILY [facility] Administration Potassium Chloride 20 meq/ 1,010 mls @ 83 mls/hr 10/29/18 09:15 10/29/18 10: 33 Dextrose/Lactated Ringer's IVPB 83 mls/hr Q12H [facility] Administration Ertapenem 1 gm/ Sodium 50 mls @ 50 mls/hr 10/30/18 10:00 Chloride IVPB DAILY [facility] Protocol Levothyroxine Sodium 25 mcg 10/29/18 07:00 10/29/18 06:03 Synthroid - PO 25 mcg DAILY@0700 [facility] Administration Meclizine HCl 25 mg 10/29/18 00:24 Antivert - PO TID PRN DIZZINESS Montelukast Sodium 10 mg 10/29/18 22:00 Singulair - PO HS [facility] Morphine Sulfate 1 mg 10/29/18 14:25 Morphine Sulfate IVPUSH Q12H PRN PAIN LEVEL 7 - 10 Nitroglycerin 0.4 mg 10/29/18 00:24 Nitrostat - SL Q5M PRN CHEST PAIN Pantoprazole Sodium 40 mg 10/29/18 10:00 10/29/18 09:16 Protonix - PO 40 mg BID [facility] Administration Polyethylene Glycol 17 gm 10/29/18 10:00 Miralax (For Daily Use) - PO BID [facility] Potassium Chloride 10 meq 10/29/18 10:00 10/29/18 09:16 K-Dur - PO 10 meq DAILY [facility] Administration Pregabalin 25 mg 10/29/18 06:00 10/29/18 14:14 Lyrica - PO 25 mg TID [facility] Administration Quinapril HCl 10 mg 10/29/18 10:00 10/29/18 09:17 Accupril - PO 10 mg DAILY [facility] Administration Ranitidine HCl 150 mg 10/29/18 22:00 Zantac - PO HS [facility] Sertraline HCl 100 mg 10/29/18 10:00 10/29/18 09:16 Zoloft - PO 100 mg DAILY [facility] Administration Sumatriptan Succinate 50 mg 10/29/18 16:00 Imitrex - PO 10/29/18 16:01 ONCE ONE On Examination: Last Vital Signs Temp Pulse Resp BP Pulse Ox 98.1 F 96 H 18 126/61 94 L 10/29/18 14:59 10/29/18 14:59 10/29/18 14:59 10/29/18 14:59 10/29/18 08:20 General: In no acute distress, lying comfortably in bed. Extremities: No pallor or icterus. No pedal edema. No palpable lymphadenopathy. CVS: S1, S2, regular, no gallop or murmur. Chest: good air entry bilaterally, clear Abdomen: Non-distended, non-tender, no palpable organomegaly, diminished bowel sounds. Neuro: Alert, oriented, non-focal. Labs: CBC, BMP 10/29/18 06:45 10/29/18 06:45 Assessment. Patient known to Dr Esposito/Diane, seen for frequent scheduled iron infusion, had complained of some episodes of vomiting (not constipated, occasional bursts diarrhea) and referred to ED for further imaging, concern for bowel obstruction , with history of multiple prior abdominal surgeries. Noted to have pyuria - started on Abics. Presently conservative treatment - clear liquids. CT yesterday reveals dilated loops small bowel suggestive of partial obstruction. Plain X ray today shows contrast entering into large bowel. No active hematology/oncology issues. Will defer management to surgery/GI/ID.
--- NOTE | 2018-10-29 15:56 | CONS ---
GASTROINTESTINAL CONSULTATION DATE OF CONSULTATION: DATE OF DICTATION: 10/29/2018 HISTORY OF PRESENT ILLNESS: The patient is a 78-year-old female. Past medical history of multiple abdominal surgeries, hemicolectomy, ileal-transverse anastomosis, last surgery 25 years ago, multiple bouts of small-bowel obstruction complicated by adhesions, diverticulitis, hypertension, CAD, chronic anemia, as well as frequent urinary tract infections. She states for the past couple of weeks, she has been having intermittent, watery, loose bowel movements which is not new for her. However, this time, she also experienced nausea and vomiting. She was seen by Dr. Esposito earlier for an iron infusion who instructed her to have an abdominal x-ray to follow, which then revealed distended colon. She was therefore instructed to come to the emergency room for further evaluation. Currently, she states, her abdominal pain has improved. She denies nausea, vomiting, melena, hematochezia, weight loss, fever or chills. She has not been on antibiotics as an outpatient. She has not traveled and there are no sick contacts. PAST MEDICAL AND SURGICAL HISTORY: As listed in the HPI. ALLERGIES: METRONIDAZOLE; AMOXICILLIN; LACTOSE; FRESH VEGETABLES. SOCIAL HISTORY: Does not smoke, drink or use drugs. FAMILY HISTORY: Mother with breast cancer. Father with lung cancer. REVIEW OF SYSTEMS: Negative, except for pertinent positives in the HPI. HOME MEDICATIONS: Were reviewed. PHYSICAL EXAMINATION: Vital Signs: Temperature 98, pulse 100, blood pressure 123/71, pulse oximetry 94% on room air, respiratory rate 18. General: In no acute distress. Pleasant female. HEENT: Anicteric sclera. Cardiovascular: S1, S2. Regular rate and rhythm. Lungs: Bilaterally clear to auscultation. Abdomen: Soft. Nontender. She does have a narcotic pump. Extremities: Some edema noted. IMAGING: CT scan performed last night in the emergency room revealed dilated small bowel loops are seen within the right abdomen and pelvis suggestive of partial small-bowel obstruction. Oral contrast was noted to traverse the length of the small bowel and partially opacify the colon. Dilation has improved since August 2018. The remainder of the exam has no obvious interval changes. She is status post right hemicolectomy. She had an abdominal x-ray performed this morning which revealed distended bowel centrally and in the right abdomen with contrast in the large bowel into the rectum; the contrast from the CT scan performed on the . At that time, a partial small-bowel obstruction was felt to be present. The fact contrast passed into the colon may indicate there is a partial small-bowel obstruction or a resolving small-bowel obstruction. Correlation was recommended. IMPRESSION: Resolving small-bowel obstruction, in the setting of multiple abdominal surgeries with likely adhesions. She may have a dynamic small-bowel obstruction. RECOMMENDATIONS: Advance to clear liquid diet and can advance as tolerated to a low-residue, lactose-free diet. Would also obtain stool culture, ova, parasite, leukocytes, C difficile PCR to exclude an infectious etiology. Pepcid 20 mg IV daily for symptomatic relief of her dyspepsia. Gentle hydration. Monitor abdominal exams. Surgery evaluation. Will follow. DO JERMAINE [id number]
--- NOTE | 2018-10-29 16:45 | CONS ---
DATE OF CONSULTATION: 10/29/2018 HISTORY OF PRESENT ILLNESS: The patient is a 78-year-old female evaluated for recurrent urinary tract infection. The patient was admitted to the hospital with complaints of worsening abdominal pain for approximately one week prior to admission. She was referred to the emergency room for evaluation and CT scan. A CT scan of her abdomen and pelvis was performed and showed evidence of dilated small bowel loops suggestive of partial small bowel obstruction. In addition to the abdominal pain, the patient complained of dysuria and urinary frequency. A urinalysis showed many white cells. She was empirically treated with ertepenem. She has a history of ESBL in a previous urine culture. The patient reports a history of recurrent urinary tract infections. She denies any suprapubic or flank pain, no fever or chills. PAST MEDICAL HISTORY: Positive for many abdominal surgeries, recurrent small bowel obstruction, frequent urinary tract infections, diverticulitis, hypertension, diabetes mellitus, chronic anemia, coronary artery disease. PAST SURGICAL HISTORY: Status post many abdominal surgeries, port placement and morphine pump placement, appendectomy, cholecystectomy, right hemicolectomy, right shoulder surgery. ALLERGIES: 1. AMOXICILLIN. She has tolerated low doses of AMOXICILLIN in the past. 2. FLAGYL. 3. The patient reports having itching of the throat and some swelling with high doses of AUGMENTIN. CURRENT MEDICATIONS: Symbicort, Tylenol, Accupril, Lovenox, Lyrica, Zoloft, Antivert, Cardizem, Zantac, Singulair, Protonix and Synthroid. SOCIAL HISTORY: She lives at home with her significant other. She is a nonsmoker, nondrinker. REVIEW OF SYSTEMS: Neurologic: No loss of consciousness, seizure activity or focal weakness. Cardiac: Negative for chest pain or palpitations. Respiratory: Negative for cough or sputum production. Gastrointestinal: As per HPI. Genitourinary: As per HPI. LABORATORY DATA: White count 5.4, hematocrit 31.9, platelet count 204, creatinine 0.7. Cultures pending. PHYSICAL EXAMINATION: General: She is awake and alert, in no acute distress. Vital Signs: Temperature 98.7, pulse 106 and regular, blood pressure 123/71, respiratory rate 18 per minute. HEENT: Sclerae anicteric. Heart: Heart sounds S1, S2. Lungs: Clear. A port is present in the right upper chest. No erythema or tenderness . Abdomen: Soft, obese. No tenderness elicited. No masses, rebound or rigidity. No suprapubic tenderness. Extremities: Negative for edema. IMPRESSION: 1. Recurrent urinary tract infection. 2. History of extended spectrum beta-lactamase in the urine. 3. PENICILLIN ALLERGY. 4. Possible ileus secondary to urinary tract infection vs. small bowel obstruction. PLAN: 1. Await culture results. 2. Continue ertepenem 1 gram IV piggyback every 24 hours. 3. Further recommendations pending cultures. 4. Contact precautions. 5. Surgical evaluation. Thank you for the kind referral. KELBY SANCHEZ M.D. [id number]
[2018-10-29] MEDS: MORPHINE SULFATE 2 MG/ML VIAL IVPUSH PRN (18:04)
--- NOTE | 2018-10-29 19:16 | CONSULT ---
Consult Consult Specialty:: General Surgery Referred by:: Dr. Shah Reason for Consultation:: pSBO - History of Present Illness Chief Complaint: dysuria, abdominal pain, vomiting History of Present Illness: 78yoF with multiple medical problems and extensive abdominal surgical history ( 51 surgeries, most recent intrathecal morphine pump implant about 8 years ago, last ~25 years ago before that), with h/o recurrent UTI's, recurrent SBO's, and chronic loose stool/diarrhea. She was seen for her planned iron infusion a couple days ago, and c/o lower abdominal pain and some upper right pain to Dr. Esposito, along with some recent vomiting episodes, and he sent her for AXR. She was called back when it showed distended SB for ER evaluation and CT. CT showed distended SB but less than in 08/28, and enteral contrast throughout SB and into colon. She was admitted to medicine, and has had no N/V since, nor passed a BM yet. She is passing gas. Denies f/c. She has had pain and burning with urination the last few days and thinks a UTI has contributed to her abdominal symptoms. She states she get frequent UTIs, especially after having diarrhea. The last one before this was in September. Surgery was asked to evaluate. She is seen and examined in bed, resting comfortably and awake. She reports no N /V in the hospital, and feeling better with regard to urinary symptoms since being on antibiotics. Her abdominal pain has improved as well. She has been tolerating clear liquids today. AXR today showed oral contrast in colon and rectum, though there are still gas-filled SB loops centrally and in right abdomen. - History Source History Provided By: Patient Limitations to Obtaining History: No Limitations - Past Medical History [employer]: Yes: Migraine Cardio/Vascular: Yes: CAD, HTN, Other (MVP) Pulmonary: Yes: Asthma, Bronchitis Gastrointestinal: Yes: Constipation (with chronic diarrhea as well), Diverticulosis, Gastritis, GERD, Hiatal Hernia, Irritable Bowel Disease, Peptic Ulcer Disease, Other (colon polyps) Hepatobiliary: Yes: Other (NAFLD, papillary stenosis @ ERCP with Dr Amaro ) Renal/: Yes: UTI (recurrent) Reproductive: Yes: Postmenopausal ...: No Heme/Onc: Yes: Anemia Infectious Disease: Yes: Other (ESBL E coli) Psych: Yes: Addictions (narcotic dependence, has spinal narcotic infusion pump) , Anxiety Musculoskeletal: Yes: Chronic low back pain (cervical and lumbar radiculopathy) , Osteoarthritis Rheumatology: Yes: Other (avascular necrosis of femoral head) Endocrine: Yes: Hypothyroidism Additional Medical History: early glaucoma. cervical and lumbar radiculopathy. avascular necrosis of femoral head. 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 - Past Surgical History Past Surgical History: Yes: Appendectomy, Cataract Removal, Cholecystectomy, Colectomy (right hemicolectomy and small bowel resections for adhesions), Colonoscopy, Joint Replacement (right shoulder 2016), Oopherectomy (right side) , Upper Endoscopy Additional Surgical History: intrathecal morphine pump ~2009, port in right chest - Alcohol/Substance Use Hx Alcohol Use: No History of Substance Use: reports: None - Smoking History Smoking history: Never smoked Have you smoked in the past 12 months: No - Social History Usual Living Arrangement: With Spouse ADL: Independent 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 History of Recent Travel: No Home Medications - Allergies Allergies/Adverse Reactions: Allergies Allergy/AdvReac Type Severity Reaction Status Date / Time metronidazole [From Flagyl] Allergy Intermediate Swelling Verified 10/28/18 17: 16 amoxicillin Allergy Verified 10/28/18 17:16 lactose AdvReac Verified 10/28/18 17:16 fresh fruit Allergy Vomiting Uncoded 10/28/18 17:16 fresh vegetables Allergy Uncoded 10/28/18 17:16 - Home Medications Home Medications: Ambulatory Orders Cholecalciferol (Vitamin D3) [Vitamin D3] 2,000 unit PO DAILY 11/02/16 Diltiazem HCl [Diltiazem 24Hr Cd] 240 mg PO HS 11/02/16 Levothyroxine [Synthroid -] 25 mcg PO DAILY 11/02/16 Montelukast Na [Singulair -] 10 mg PO HS 11/02/16 Nitroglycerin [Nitrostat] 0.4 mg SL PRN PRN 11/02/16 Sertraline HCl [Zoloft -] 100 mg PO DAILY 11/02/16 Sumatriptan Succinate [Imitrex -] 100 mg PO PRN 11/02/16 Polyethylene Glycol 3350 [Miralax 119 gm Btl -] 17 gm PO BID bottle 11/10/16 Acetaminophen [Tylenol .Regular Strength -] 650 mg PO Q4H PRN #0 tablet Quinapril HCl [Accupril -] 10 mg PO DAILY #30 tablet 12/07/16 Meclizine HCl [Antivert -] 25 mg PO TID PRN 11/05/17 Pregabalin [Lyrica] 25 mg PO TID 11/05/17 Potassium Chloride [K-Dur -] 10 meq PO DAILY 12/02/17 Ranitidine HCl 150 mg PO HS 12/02/17 Vitamin E 1,000 unit PO DAILY 12/02/17 Budesonide/Formeterol Fumarate [SYMBICORT 160/4.5mcg -] 2 puff IH PRN PRN Pantoprazole Sodium [Protonix -] 40 mg PO BID 06/21/18 Pantoprazole Sodium [Protonix -] 40 mg PO BID #60 tablet.ec 08/21/18 Home Medications (free text): pt states can take amoxicillin but had oral swelling/itching reaction to augmentin Family Disease History - Family Disease History Family Disease History: CA: Father (lung), Mother (breast) Other Family History: has adopted son and daughter Review of Systems - Review of Systems Constitutional: denies: Chills, Fever Eyes: denies: Blurred Vision, Recent Change in Vision HENT: denies: Difficult Swallowing, Throat Pain Neck: denies: Swollen Glands, Tenderness Cardiovascular: denies: Chest Pain, Palpitations Respiratory: denies: Cough, SOB Gastrointestinal: reports: Abdominal Pain (with hpi), Bloating (mild), Constipation (chronic, opioid related), Diarrhea (chronic, normal for her but not in last few days), Nausea (with hpi), Vomiting (with hpi) Genitourinary: reports: Burning, Dysuria Musculoskeletal: reports: Back Pain (chronic). denies: Muscle Pain Integumentary: denies: Change in Color, Rash Neurological: denies: Dizziness, Headache Physical Exam Vital Signs: Vital Signs Temperature 98.1 F 10/29/18 14:59 Pulse Rate 96 H 10/29/18 14:59 Respiratory Rate 18 10/29/18 14:59 Blood Pressure 126/61 10/29/18 14:59 O2 Sat by Pulse Oximetry (%) 94 L 10/29/18 08:20 Constitutional: Yes: Well Nourished, No Distress, Calm Eyes: Yes: Conjunctiva Clear, EOM Intact HENT: Yes: Atraumatic, Normocephalic Neck: Yes: Supple, Trachea Midline Cardiovascular: Yes: Regular Rate and Rhythm Respiratory: Yes: Regular, CTA Bilaterally Gastrointestinal: Yes: Normal Bowel Sounds, Soft, Abdomen, Obese, Distention ( mild, some tympany), Palpable Mass (RLQ morphine pump palpable), Tenderness ( mild RUQ/LUQ, no fred or guarding), Other (multiple well-healed scars). No: Tenderness, Epigastrium, Vomiting ...Rectal Exam: Yes: Deferred Renal/: No: CVA Tenderness - Left, CVA Tenderness - Right Musculoskeletal: No: Joint Stiffness, Joint Swelling Extremities: No: Cool, Cyanosis Edema: No Peripheral Pulses WNL: Yes Integumentary: No: Jaundice, Rash Neurological: Yes: Alert, Oriented Psychiatric: Yes: Alert, Oriented Labs: CBC, BMP 10/29/18 06:45 10/29/18 06:45 CMP Sodium 142 mmol/L (136-145) 10/29/18 06:45 Potassium 3.4 mmol/L (3.5-5.1) L 10/29/18 06:45 Chloride 103 mmol/L (98-107) 10/29/18 06:45 Carbon Dioxide 32 mmol/L (21-32) 10/29/18 06:45 Anion Gap 7 MMOL/L (8-16) L 10/29/18 06:45 BUN 9 mg/dL (7-18) 10/29/18 06:45 Creatinine 0.7 mg/dL (0.55-1.3) 10/29/18 06:45 Creat Clearance w eGFR > 60 (>60) 10/29/18 06:45 Random Glucose 81 mg/dL (74-106) 10/29/18 06:45 Calcium 8.3 mg/dL (8.5-10.1) L 10/29/18 06:45 Phosphorus 3.6 mg/dL (2.5-4.9) 10/29/18 06:45 Magnesium 1.8 mg/dL (1.8-2.4) 10/29/18 06:45 Lipase 56 U/L (73-393) L 10/29/18 06:45 Urine Test Results Urine Color Yellow 10/28/18 19:33 Urine Appearance Slcloudy 10/28/18 19:33 Urine pH 7.0 (5.0-8.0) 10/28/18 19:33 Ur Specific Milo 1.031 (1.010-1.035) 10/28/18 19:33 Urine Protein Negative (NEGATIVE) 10/28/18 19:33 Urine Glucose (UA) Negative (NEGATIVE) 10/28/18 19:33 Urine Ketones Negative (NEGATIVE) 10/28/18 19: Urine Blood Negative (NEGATIVE) 10/28/18 19: Urine Nitrite Negative (NEGATIVE) 10/28/18 19: Urine Bilirubin Negative (<2.0 mg/dL) 10/28/18 19:33 Ur Leukocyte Esterase 3+ (NEGATIVE) H 10/28/18 19:33 Ur Epithelial Cells Rare /HPF (FEW) 10/28/18 19: Urine Bacteria Rare /hpf (NONE SEEN) 10/28/18 19: Urine Mucus Rare 10/28/18: urine culture pending Imaging - Results X-ray: Report Reviewed, Image Reviewed (image reviewed - dilated central SB with gas, contrast in colon and rectum from CT) Cat Scan: Report Reviewed, Image Reviewed (images reviewed, dilated SB but less than in August, contrast traverses SB to colon, s/p multiple bowel resections including R hemicolectomy) Problem List - Problems (1) Intestinal adhesions with partial obstruction Assessment/Plan: pt with partial SBO, likely resolving, also likely chronic component tolerating clear liquids without n/v no BM in last few days, no contrast evacuated yet AXR with contrast to rectum, moving distally continue clears until + bowel function would hold home Miralax for now until contrast evacuating f/u with AXR tomorrow Thank you for the opportunity to participate in the care of this patient. 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 f/u cx results Code(s): N39.0 - URINARY TRACT INFECTION, SITE NOT SPECIFIED Qualifiers: Urinary tract infection type: acute cystitis Hematuria presence: without hematuria Qualified Code(s): N30.00 - Acute cystitis without hematuria (3) History of right hemicolectomy Code(s): Z90.49 - ACQUIRED ABSENCE OF OTHER SPECIFIED PARTS OF DIGESTIVE TRACT (4) HTN (hypertension) Code(s): I10 - ESSENTIAL (PRIMARY) HYPERTENSION Qualifiers: Hypertension type: essential hypertension Qualified Code(s): I10 - Essential (primary) hypertension (5) Anemia Code(s): D64.9 - ANEMIA, UNSPECIFIED Qualifiers: Anemia type: iron deficiency Iron deficiency anemia type: other iron deficiency Qualified Code(s): D50.8 - Other iron deficiency anemias (6) GERD (gastroesophageal reflux disease) Code(s): K21.9 - GASTRO-ESOPHAGEAL REFLUX DISEASE WITHOUT ESOPHAGITIS Qualifiers: Esophagitis presence: without esophagitis Qualified Code(s): K21.9 - Gastro -esophageal reflux disease without esophagitis (7) Chronic pain Code(s): G89.29 - OTHER CHRONIC PAIN Qualifiers: Chronic pain type: chronic pain syndrome Qualified Code(s): G89.4 - Chronic pain syndrome
[2018-10-29] MEDS ORDERED: RANITIDINE HCL 150 MG TABLET (FP) PO SCH (22:00)
[2018-10-29] MEDS: MONTELUKAST NA 10 MG TABLET PO SCH (23:02)
[2018-10-29] MEDS: MELATONIN 5 MG TABLETS PO PRN (23:02)
[2018-10-30] MEDS: ACETAMINOPHEN 325 MG TABLET (FP) PO PRN ×2 (01:53→16:18)
[2018-10-30] MEDS: PREGABALIN 25 MG CAPSULE PO SCH ×3 (05:54→21:07)
[2018-10-30] MEDS: LEVOTHYROXINE NA 25 MCG TABLET (FP) PO SCH (06:03)
[2018-10-30 06:57] LABS: BASO % 0.4 % (0-2.0); EOS % 16.2 % (0-4.5); HEMATOCRIT 36.2 % (32.4-45.2); HEMOGLOBIN 11.8 GM/dL (10.7-15.3); LYMPH % 28.5 % (8-40); MCH 30.8 pg (25.7-33.7); MCHC 32.5 g/dl (32.0-36.0); MEAN CELL VOLUME 94.9 fl (80-96); MEAN PLT VOLUME 9.4 fl (7.5-11.1); MONO % 8.3 % (3.8-10.2); NEUT % 46.6 % (42.8-82.8); PLATELET COUNT 234 K/MM3 (134-434); RBC 3.82 M/mm3 (3.60-5.2); RDW 15.6 % (11.6-15.6); WHITE BLOOD COUNT 4.5 K/mm3 (4.0-10.0)
--- NOTE | 2018-10-30 07:25 | PN ---
Progress Note, Physician History of Present Illness: COMPLAINS OF NAUSEA THIS MORNING WELL DYSURIA ; NO ABDOMINAL PAIN ; +BM X3 - Current Medication List Current Medications: Active Medications Acetaminophen (Tylenol -) 650 mg PO Q4H PRN PRN Reason: PAIN LEVEL 1-5 OR FEVER Last Admin: 10/30/18 01:53 Dose: 650 mg Budesonide/Formoterol Fumarate (Symbicort 160/4.5mcg -) 2 puff IH BID [facility] Last Admin: 10/29/18 23:03 Dose: 2 puff Cholecalciferol (Vitamin D3 -) 2,000 unit PO DAILY [facility] Last Admin: 10/29/18 09:16 Dose: 2,000 unit Diltiazem HCl (Cardizem Cd -) 240 mg PO HS [facility] Last Admin: 10/29/18 23:02 Dose: 240 mg Enoxaparin Sodium (Lovenox -) 40 mg SQ DAILY [facility] Last Admin: 10/29/18 09:16 Dose: 40 mg Potassium Chloride 20 meq/ (Dextrose/Lactated Ringer's) 1,010 mls @ 83 mls/hr IVPB Q12H [facility] Last Admin: 10/29/18 23:01 Dose: 83 mls/hr Ertapenem 1 gm/ Sodium (Chloride) 50 mls @ 50 mls/hr IVPB DAILY [facility]; Protocol Levothyroxine Sodium (Synthroid -) 25 mcg PO DAILY@0700 [facility] Last Admin: 10/30/18 06:03 Dose: 25 mcg Meclizine HCl (Antivert -) 25 mg PO TID PRN PRN Reason: DIZZINESS Melatonin (Melatonin) 5 mg PO HS PRN PRN Reason: INSOMNIA Last Admin: 10/29/18 23:02 Dose: 5 mg Montelukast Sodium (Singulair -) 10 mg PO HS [facility] Last Admin: 10/29/18 23:02 Dose: 10 mg Morphine Sulfate (Morphine Sulfate) 1 mg IVPUSH Q12H PRN PRN Reason: PAIN LEVEL 7 - 10 Last Admin: 10/29/18 18:04 Dose: 1 mg Nitroglycerin (Nitrostat -) 0.4 mg SL Q5M PRN PRN Reason: CHEST PAIN Pantoprazole Sodium (Protonix -) 40 mg PO BID [facility] Last Admin: 10/29/18 23:02 Dose: 40 mg Potassium Chloride (K-Dur -) 10 meq PO DAILY [facility] Last Admin: 10/29/18 09:16 Dose: 10 meq Pregabalin (Lyrica -) 25 mg PO TID [facility] Last Admin: 10/30/18 05:54 Dose: 25 mg Quinapril HCl (Accupril -) 10 mg PO DAILY [facility] Last Admin: 10/29/18 09:17 Dose: 10 mg Ranitidine HCl (Zantac -) 150 mg PO HS [facility] Last Admin: 10/29/18 23:02 Dose: 150 mg Sertraline HCl (Zoloft -) 100 mg PO DAILY [facility] Last Admin: 10/29/18 09:16 Dose: 100 mg - Objective Vital Signs: Vital Signs Temperature 97.7 F 10/30/18 05:53 Pulse Rate 73 10/30/18 05:53 Respiratory Rate 20 10/30/18 05:53 Blood Pressure 108/45 L 10/30/18 05:53 O2 Sat by Pulse Oximetry (%) 96 10/29/18 22:00 Constitutional: Yes: Well Nourished, No Distress, Calm Eyes: Yes: WNL HENT: Yes: WNL Neck: Yes: WNL Cardiovascular: Yes: WNL Respiratory: Yes: WNL Gastrointestinal: Yes: WNL, Normal Bowel Sounds, Soft Musculoskeletal: Yes: WNL Extremities: Yes: WNL Edema: No Labs: CBC, BMP 10/30/18 06:30 Problem List - Problems (1) Intestinal adhesions with partial obstruction Assessment/Plan: DYSPEPSIA MOST LIKELY SECONDARY TO UNDERLYING INFECTIOUS PROCESS. AXR ORDERED FOR COMPLETENESS ZOFRAN PRN CLEAR LIQUID DIET ' PEPCID IV BID ORDERED FOR SYMPTOMATIC RELIEF. Code(s): K56.51 - INTESTINAL ADHESIONS [BANDS], WITH PARTIAL OBSTRUCTION (2) SBO (small bowel obstruction) Code(s): K56.609 - UNSP INTESTNL OBST, UNSP TO PARTIAL VERSUS COMPLETE OBST
[2018-10-30 08:10] LABS: ALBUMIN 3.3 g/dl (3.4-5.0); ALK PHOS 99 U/L (45-117); ANION GAP 7 MMOL/L (8-16); BILIRUBIN,TOTAL 0.3 mg/dL (0.2-1); BLOOD UREA NITROGEN 3 mg/dL (7-18); CALCIUM 8.9 mg/dL (8.5-10.1); CHLORIDE 103 mmol/L (98-107); CO2 34 mmol/L (21-32); CREATININE 0.6 mg/dL (0.55-1.3); GLUCOSE,RANDOM 102 mg/dL (74-106); MAGNESIUM 1.7 mg/dL (1.8-2.4); PHOSPHOROUS 3.9 mg/dL (2.5-4.9); POTASSIUM 3.9 mmol/L (3.5-5.1); SGOT/AST 17 U/L (15-37); SGPT/ALT 16 U/L (13-61); SODIUM 144 mmol/L (136-145); TOT PROT 5.9 g/dl (6.4-8.2)
[2018-10-30] MEDS: MORPHINE SULFATE 2 MG/ML VIAL IVPUSH PRN (09:22)
[2018-10-30] MEDS: POTASSIUM CHLORIDE TABS 10 MEQ TABLET.ER (FP) PO SCH (09:23)
[2018-10-30] MEDS: CHOLECALCIFEROL (VITAMIN D3) 1,000 UNIT TABLET (FP) PO SCH (09:23)
[2018-10-30] MEDS: PANTOPRAZOLE 40 MG TABLET (FP) PO SCH ×2 (09:23→21:07)
[2018-10-30] MEDS: ENOXAPARIN NA (PORCINE) 40 MG/0.4 ML DISP.SYRIN SQ SCH (09:23)
[2018-10-30] MEDS: POTASSIUM CHLORIDE 20 MEQ in DEXTROSE 5%-LACTATED RINGERS 1,000 ML IVPB SCH ×2 (09:24→21:08)
[2018-10-30] MEDS ORDERED: PT OWN MED DRAWER 7, Y5N ONE (10:25)
[2018-10-30] MEDS: QUINAPRIL HCL 10 MG TABLET (FP) PO SCH (11:01)
[2018-10-30] MEDS: ERTAPENEM SODIUM 1 GM in SODIUM CHLORIDE 50 ML IVPB SCH (11:01)
[2018-10-30] MEDS ORDERED: MAGNESIUM SULF 50% (8.12 MEQ/2 ML-1 GM VIAL) IVPB ONE (11:44)
--- NOTE | 2018-10-30 11:48 | PN ---
Physical Exam: SUBJECTIVE: Patient seen and examined, tolerating liquids, 3 BM yesterday. Abdominal symptoms improved, no nausea, vomiting, fevers chills. Still with some urinary burning and suprapubic discomfort. OBJECTIVE: Vital Signs Period Temp Pulse Resp BP Sys/Ahn Pulse Ox Last 24 Hr 8.5 F-98.3 F 73-96 18-20 108-138/45-88 96 GENERAL: The patient is awake, alert, and fully oriented, in no acute distress. HEAD: Normal with no signs of trauma. EYES: PERRL, extraocular movements intact, sclera anicteric, conjunctiva clear. No ptosis. ENT: Ears normal, nares patent, oropharynx clear without exudates, moist mucous membranes. NECK: Trachea midline, full range of motion, supple. LUNGS: Breath sounds equal, clear to auscultation bilaterally, no wheezes, no crackles, no accessory muscle use. HEART: Regular rate and rhythm, S1, S2 ABDOMEN: Soft, non distended, unchanged scars, normoactive bowel sounds, intraumbilical/suprapubic tenderness, non tender otherwise, no voluntary or involuntary guarding or rigidity EXTREMITIES: 2+ pulses, warm, well-perfused, no edema. PSYCH: Normal mood, normal affect. SKIN: Warm, dry, normal turgor, no rashes or lesions noted Laboratory Results - last 24 hr 10/29/18 10/30/18 10/30/18 06:45 06:30 06:30 WBC 4.5 RBC 3.82 Hgb 11.8 Hct 36.2 MCV 94.9 MCH 30.8 MCHC 32.5 RDW 15.6 Plt Count 234 MPV 9.4 Absolute Neuts (auto) 2.1 Neutrophils % 46.6 D Lymphocytes % 28.5 D Monocytes % 8.3 D Eosinophils % 16.2 H D Basophils % 0.4 Nucleated RBC % 0 Sodium 142 144 Potassium 3.4 L 3.9 Chloride 103 103 Carbon Dioxide 32 34 H Anion Gap 7 L 7 L BUN 9 3 L Creatinine 0.7 0.6 Creat Clearance w eGFR > 60 > 60 Random Glucose 81 102 Calcium 8.3 L 8.9 Phosphorus 3.6 3.9 Magnesium 1.8 1.7 L Total Bilirubin 0.3 AST 17 ALT 16 Alkaline Phosphatase 99 Total Protein 5.9 L Albumin 3.3 L Lipase 56 L Active Medications Generic Name Dose Route Start Last Admin Trade Name Freq PRN Reason Stop Dose Admin Acetaminophen 650 mg 10/30/18 01:45 10/30/18 01:53 Tylenol - PO 650 mg Q4H PRN Administration PAIN LEVEL 1-5 OR FEVER Budesonide/Formoterol Fumarate 2 puff 10/29/18 10:00 10/29/18 23:03 Symbicort 160/4.5mcg - IH 2 puff BID TANA Administration Cholecalciferol 2,000 unit 10/29/18 10:00 10/30/18 09:23 Vitamin D3 - PO 2,000 unit DAILY TANA Administration Diltiazem HCl 240 mg 10/29/18 22:00 10/29/18 23:02 Cardizem Cd - PO 240 mg HS TANA Administration Enoxaparin Sodium 40 mg 10/29/18 10:00 10/30/18 09:23 Lovenox - SQ 40 mg DAILY TANA Administration Potassium Chloride 20 meq/ 1,010 mls @ 83 mls/hr 10/29/18 09:15 10/30/18 09: 24 Dextrose/Lactated Ringer's IVPB 83 mls/hr Q12H TANA Administration Ertapenem 1 gm/ Sodium 50 mls @ 50 mls/hr 10/30/18 10:00 10/30/18 11:01 Chloride IVPB 50 mls/hr DAILY TANA Administration Protocol Levothyroxine Sodium 25 mcg 10/29/18 07:00 10/30/18 06:03 Synthroid - PO 25 mcg DAILY@0700 TANA Administration Magnesium Sulfate 2 gm 10/30/18 11:44 Magnesium Sulfate IVPB 10/30/18 11:45 ONCE ONE Meclizine HCl 25 mg 10/29/18 00:24 Antivert - PO TID PRN DIZZINESS Melatonin 5 mg 10/29/18 21:25 10/29/18 23:02 Melatonin PO 5 mg HS PRN Administration INSOMNIA Montelukast Sodium 10 mg 10/29/18 22:00 10/29/18 23:02 Singulair - PO 10 mg HS TANA Administration Nitroglycerin 0.4 mg 10/29/18 00:24 Nitrostat - SL Q5M PRN CHEST PAIN Pantoprazole Sodium 40 mg 10/29/18 10:00 10/30/18 09:23 Protonix - PO 40 mg BID TANA Administration Potassium Chloride 10 meq 10/29/18 10:00 10/30/18 09:23 K-Dur - PO 10 meq DAILY TANA Administration Pregabalin 25 mg 10/29/18 06:00 10/30/18 05:54 Lyrica - PO 25 mg TID TANA Administration Quinapril HCl 10 mg 10/29/18 10:00 10/30/18 11:01 Accupril - PO 10 mg DAILY TANA Administration Ranitidine HCl 150 mg 10/29/18 22:00 10/29/18 23:02 Zantac - PO 150 mg HS TANA Administration Sertraline HCl 100 mg 10/29/18 10:00 10/29/18 09:16 Zoloft - PO 100 mg DAILY TANA Administration ASSESSMENT/PLAN: 78 yof with PMhx of multiple abdominal surgeries (51 per patient), prior admissions with SBO managed conservatively, last in 08/2018, chronic abdominal pain on morphine pump, chronic anemia suspected from chronic GI losses from ava -anastomotic ulcer on weekly iron infusion via Portacath,CAD, angina, migraine admitted with abdominal pain, partial SBO and urinary symptoms. -Partial SBO -Lower uncomplicated UTI (h/o ESBL in urine) -Hypokalemia -Acute Chronic abdominal pain on morphine pump (reports gets 1 mg daily with occasional breakthrough 1 m dose), suspect cystitis given tenderness in suprapubic region, rather than related to her SBO. -H/o Ava-anastomotic ulcer with stricture s/p dilatation -Chronic anemia on weekly Iron infusions via Jason-cath -CAD/angina pectoris -Migraine headaches, s/p imitrex, resolved Plan: Tolerating clears, 3 BM overnight. Advance to solid food, monitor. Ertapenem day 2, follow up urine cx. GI/surgeyr input noted. Stool studies if recurrent diarrhea or concerns. . D/c morphine. Patient on morphine pump (reportedly gets 1 mg IV daily) d/c IVF once tolerating PO well, change to NS. Imitrex x1 for migraine headaches. Diltiazem [id number] lovenox dispo in 24 hours pending urine cx and plan for abx. Plan discussed with patient, nursing and CM, all questions answered. Visit type - Emergency Visit Emergency Visit: Yes ED Registration Date: 10/29/18 Care time: The patient presented to the Emergency Department on the above date and was hospitalized for further evaluation of their emergent condition. - New Patient This patient is new to me today: No - Critical Care Critical Care patient: No - Discharge Referral Referred to [facility] No
[2018-10-30] MEDS: SERTRALINE HCL 50 MG TABLET (FP) PO SCH (12:49)
[2018-10-30] MEDS: BUDESONIDE/FORMETEROL FUMARATE 160/4.5 mcg INHALER IH SCH ×2 (12:49→21:08)
[2018-10-30] MEDS: ONDANSETRON 4 MG TABLET PO PRN (13:32)
[2018-10-30] MEDS: FAMOTIDINE 20 MG/50 ML IVPB 20 MG/50 ML MG IVPB SCH ×2 (15:05→21:07)
--- NOTE | 2018-10-30 16:25 | PN ---
Progress Note, Physician History of Present Illness: 78yoF with multiple medical problems and extensive abdominal surgical history ( 51 surgeries, most recent intrathecal morphine pump implant about 8 years ago, last ~25 years ago before that), with h/o recurrent UTI's, recurrent SBO's, and chronic loose stool/diarrhea. She was seen for her planned iron infusion a couple days ago, and c/o lower abdominal pain and some upper right pain to Dr. Esposito, along with some recent vomiting episodes, and he sent her for AXR. She was called back when it showed distended SB for ER evaluation and CT. CT showed distended SB but less than in 08/28, and enteral contrast throughout SB and into colon. She was admitted to medicine, and has had no N/V since. She is passing gas. She had pain and burning with urination the last few days and thinks a UTI has contributed to her abdominal symptoms. She states she get frequent UTIs, especially after having diarrhea. The last one before this was in September. She is on abx per ID for UTI. She is seen and examined in bed, comfortable and awake. She reports feeling much better and feels she is back to baseline. She has been tolerating diet today. AXR today showed oral contrast all evacuated from colon, though there are still some gas-filled SB loops centrally. She has had multiple BMs, collections professional than usual, liquidy. Had a little nausea earlier, but not now. Pain is significantly improved. Urinary symptoms also improved. UCx is growing GNB but not id'd yet. - Current Medication List Current Medications: Active Medications Acetaminophen (Tylenol -) 650 mg PO Q4H PRN PRN Reason: PAIN LEVEL 1-5 OR FEVER Last Admin: 10/30/18 01:53 Dose: 650 mg Budesonide/Formoterol Fumarate (Symbicort 160/4.5mcg -) 2 puff IH BID [facility] Last Admin: 10/30/18 12:49 Dose: Not Given Cholecalciferol (Vitamin D3 -) 2,000 unit PO DAILY [facility] Last Admin: 10/30/18 09:23 Dose: 2,000 unit Diltiazem HCl (Cardizem Cd -) 240 mg PO HS [facility] Last Admin: 10/29/18 23:02 Dose: 240 mg Enoxaparin Sodium (Lovenox -) 40 mg SQ DAILY [facility] Last Admin: 10/30/18 09:23 Dose: 40 mg Potassium Chloride 20 meq/ (Dextrose/Lactated Ringer's) 1,010 mls @ 83 mls/hr IVPB Q12H [facility] Last Admin: 10/30/18 09:24 Dose: 83 mls/hr Ertapenem 1 gm/ Sodium (Chloride) 50 mls @ 50 mls/hr IVPB DAILY [facility]; Protocol Last Admin: 10/30/18 11:01 Dose: 50 mls/hr Famotidine/Sodium Chloride (Pepcid 20 Mg Premixed Ivpb -) 20 mg in 50 mls @ 100 mls/hr IVPB BID [facility] Last Admin: 10/30/18 15:05 Dose: Not Given Levothyroxine Sodium (Synthroid -) 25 mcg PO DAILY@0700 [facility] Last Admin: 10/30/18 06:03 Dose: 25 mcg Meclizine HCl (Antivert -) 25 mg PO TID PRN PRN Reason: DIZZINESS Melatonin (Melatonin) 5 mg PO HS PRN PRN Reason: INSOMNIA Last Admin: 10/29/18 23:02 Dose: 5 mg Montelukast Sodium (Singulair -) 10 mg PO HS [facility] Last Admin: 10/29/18 23:02 Dose: 10 mg Nitroglycerin (Nitrostat -) 0.4 mg SL Q5M PRN PRN Reason: CHEST PAIN Ondansetron HCl (Zofran -) 8 mg PO Q8H PRN PRN Reason: NAUSEA Last Admin: 10/30/18 13:32 Dose: 8 mg Pantoprazole Sodium (Protonix -) 40 mg PO BID [facility] Last Admin: 10/30/18 09:23 Dose: 40 mg Potassium Chloride (K-Dur -) 10 meq PO DAILY [facility] Last Admin: 10/30/18 09:23 Dose: 10 meq Pregabalin (Lyrica -) 25 mg PO TID [facility] Last Admin: 10/30/18 13:32 Dose: 25 mg Quinapril HCl (Accupril -) 10 mg PO DAILY [facility] Last Admin: 10/30/18 11:01 Dose: 10 mg Sertraline HCl (Zoloft -) 100 mg PO DAILY [facility] Last Admin: 10/30/18 12:49 Dose: 100 mg - Objective Vital Signs: Vital Signs Temperature 97.7 F 10/30/18 15:11 Pulse Rate 86 01/20/19 15:11 Respiratory Rate 20 10/30/18 15:11 Blood Pressure 126/55 L 10/30/18 15:11 O2 Sat by Pulse Oximetry (%) 96 10/30/18 16:00 Constitutional: Yes: Well Nourished, No Distress, Calm Eyes: Yes: Conjunctiva Clear, EOM Intact HENT: Yes: Atraumatic, Normocephalic Gastrointestinal: Yes: Soft, Distention (mild, some tympany), Palpable Mass ( RLQ morphine pump), Other (multiple healed scars). No: Tenderness, Tenderness, Epigastrium ...Rectal Exam: Yes: Deferred Extremities: No: Cool, Cyanosis Integumentary: No: Jaundice, Rash Neurological: Yes: Alert, Oriented Labs: CBC, BMP 10/30/18 06:30 10/30/18 06:30 - ....Imaging X-ray: Report Reviewed, Image Reviewed (AXR reviewed - central gas-filled SB loops, similar to prior, but all contrast in colon has been evacuated) Problem List - Problems (1) Intestinal adhesions with partial obstruction Assessment/Plan: pt with partial SBO, resolved to baseline, likely chronic component tolerating diet + BM, all contrast out AXR reflects above per pt, she is not using Miralax at home, as she has more diarrhea than not her only opiate use is the morphine pump at 1mg/day and tylenol for her back would not resume and let her discuss with PMD as needed no surgical intervention indicated will sign off please call with further questions 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 f/u cx results - GNB growing Code(s): N39.0 - URINARY TRACT INFECTION, SITE NOT SPECIFIED Qualifiers: Urinary tract infection type: acute cystitis Hematuria presence: without hematuria Qualified Code(s): N30.00 - Acute cystitis without hematuria (3) History of right hemicolectomy Code(s): Z90.49 - ACQUIRED ABSENCE OF OTHER SPECIFIED PARTS OF DIGESTIVE TRACT (4) HTN (hypertension) Code(s): I10 - ESSENTIAL (PRIMARY) HYPERTENSION Qualifiers: Hypertension type: essential hypertension Qualified Code(s): I10 - Essential (primary) hypertension (5) Anemia Code(s): D64.9 - ANEMIA, UNSPECIFIED Qualifiers: Anemia type: iron deficiency Iron deficiency anemia type: other iron deficiency Qualified Code(s): D50.8 - Other iron deficiency anemias (6) GERD (gastroesophageal reflux disease) Code(s): K21.9 - GASTRO-ESOPHAGEAL REFLUX DISEASE WITHOUT ESOPHAGITIS Qualifiers: Esophagitis presence: without esophagitis Qualified Code(s): K21.9 - Gastro -esophageal reflux disease without esophagitis (7) Chronic pain Code(s): G89.29 - OTHER CHRONIC PAIN Qualifiers: Chronic pain type: chronic pain syndrome Qualified Code(s): G89.4 - Chronic pain syndrome
--- NOTE | 2018-10-30 16:25 | PN ---
Progress Note (short form) - Note Progress Note: Patient seen in follow up. No new complaints. No significant events overnight. Presently on clear liquid diet. Reports several bowel movements. States that prior dysuria experienced is improved Inpatient Meds reviewed. Current Medications Acetaminophen (Tylenol -) 650 mg PO Q4H PRN PRN Reason: PAIN LEVEL 1-5 OR FEVER Last Admin: 10/30/18 16:18 Dose: 650 mg Budesonide/Formoterol Fumarate (Symbicort 160/4.5mcg -) 2 puff IH BID [facility] Last Admin: 10/30/18 12:49 Dose: Not Given Cholecalciferol (Vitamin D3 -) 2,000 unit PO DAILY [facility] Last Admin: 10/30/18 09:23 Dose: 2,000 unit Diltiazem HCl (Cardizem Cd -) 240 mg PO HS [facility] Last Admin: 10/29/18 23:02 Dose: 240 mg Enoxaparin Sodium (Lovenox -) 40 mg SQ DAILY [facility] Last Admin: 10/30/18 09:23 Dose: 40 mg Potassium Chloride 20 meq/ (Dextrose/Lactated Ringer's) 1,010 mls @ 83 mls/hr IVPB Q12H [facility] Last Admin: 10/30/18 09:24 Dose: 83 mls/hr Ertapenem 1 gm/ Sodium (Chloride) 50 mls @ 50 mls/hr IVPB DAILY [facility]; Protocol Last Admin: 10/30/18 11:01 Dose: 50 mls/hr Famotidine/Sodium Chloride (Pepcid 20 Mg Premixed Ivpb -) 20 mg in 50 mls @ 100 mls/hr IVPB BID [facility] Last Admin: 10/30/18 15:05 Dose: Not Given Levothyroxine Sodium (Synthroid -) 25 mcg PO DAILY@0700 [facility] Last Admin: 10/30/18 06:03 Dose: 25 mcg Meclizine HCl (Antivert -) 25 mg PO TID PRN PRN Reason: DIZZINESS Melatonin (Melatonin) 5 mg PO HS PRN PRN Reason: INSOMNIA Last Admin: 10/29/18 23:02 Dose: 5 mg Montelukast Sodium (Singulair -) 10 mg PO HS [facility] Last Admin: 10/29/18 23:02 Dose: 10 mg Nitroglycerin (Nitrostat -) 0.4 mg SL Q5M PRN PRN Reason: CHEST PAIN Ondansetron HCl (Zofran -) 8 mg PO Q8H PRN PRN Reason: NAUSEA Last Admin: 10/30/18 13:32 Dose: 8 mg Pantoprazole Sodium (Protonix -) 40 mg PO BID [facility] Last Admin: 10/30/18 09:23 Dose: 40 mg Potassium Chloride (K-Dur -) 10 meq PO DAILY [facility] Last Admin: 10/30/18 09:23 Dose: 10 meq Pregabalin (Lyrica -) 25 mg PO TID [facility] Last Admin: 10/30/18 13:32 Dose: 25 mg Quinapril HCl (Accupril -) 10 mg PO DAILY [facility] Last Admin: 10/30/18 11:01 Dose: 10 mg Sertraline HCl (Zoloft -) 100 mg PO DAILY [facility] Last Admin: 10/30/18 12:49 Dose: 100 mg On Examination: Last Vital Signs Temp Pulse Resp BP Pulse Ox 97.7 F 86 20 126/55 L 96 10/30/18 15:11 10/30/18 15:11 10/30/18 15:11 10/30/18 15:11 10/30/18 16:00 General: In no acute distress. Neuro: Alert, oriented, non-focal. Labs: CBC, BMP 10/30/18 06:30 10/30/18 06:30 Assessment. Patient known to Dr Esposito/Diane, seen for frequent scheduled iron infusion, had complained of some episodes of vomiting (not constipated, occasional bursts diarrhea) and referred to ED for further imaging, concern for bowel obstruction , with history of multiple prior abdominal surgeries. Noted to have pyuria - started on Abics. CT yesterday reveals dilated loops small bowel suggestive of partial obstruction. Plain X ray today shows contrast entering into large bowel. Clinically not obstructed. No active hematology/oncology issues. Will defer ongoing management to surgery/ GI/ID.
--- NOTE | 2018-10-30 19:28 | EKG ---
Test Reason : Blood Pressure : / mmHG Vent. Rate : 077 BPM Atrial Rate : 077 BPM P-R Int : 160 ms QRS Dur : 094 ms QT Int : 406 ms P-R-T Axes : 059 018 034 degrees QTc Int : 459 ms NORMAL SINUS RHYTHM NONSPECIFIC T WAVE ABNORMALITY WHEN COMPARED WITH ECG OF 18-AUG-2018 10:09, T WAVE VARIATION Confirmed by ALEJANDRO ADAIR MD ([id number]) on 10/30/2018 7:28:23 PM Referred By: Confirmed By:ALEJANDRO ADAIR MD
[2018-10-30] MEDS ORDERED: SUMAtriptan SUCCINATE 50 MG TABLET PO ONE (20:45)
[2018-10-30] MEDS ORDERED: SUMAtriptan SUCCINATE 25 MG TABLET PO ONE (20:45)
[2018-10-30] MEDS: MONTELUKAST NA 10 MG TABLET PO SCH (21:06)
[2018-10-30] MEDS ORDERED: ONDANSETRON 4 MG/2 ML VIAL IVPUSH ONE (22:30)
[2018-10-30] MEDS: MELATONIN 5 MG TABLETS PO PRN (23:51)
[2018-10-31] MEDS ORDERED: MORPHINE SULFATE 2 MG/ML VIAL IVPUSH ONE (04:56)
[2018-10-31] MEDS: PREGABALIN 25 MG CAPSULE PO SCH ×2 (05:57→13:16)
[2018-10-31] MEDS: LEVOTHYROXINE NA 25 MCG TABLET (FP) PO SCH (06:07)
[2018-10-31 07:50] LABS: BASO % 0.3 % (0-2.0); EOS % 8.9 % (0-4.5); HEMATOCRIT 32.8 % (32.4-45.2); HEMOGLOBIN 10.8 GM/dL (10.7-15.3); LYMPH % 27.5 % (8-40); MCH 30.8 pg (25.7-33.7); MCHC 32.8 g/dl (32.0-36.0); MEAN PLT VOLUME 9.5 fl (7.5-11.1); MONO % 7.1 % (3.8-10.2); NEUT % 56.2 % (42.8-82.8); PLATELET COUNT 195 K/MM3 (134-434); RBC 3.49 M/mm3 (3.60-5.2); RDW 15.5 % (11.6-15.6)
[2018-10-31 08:29] LABS: ANION GAP 5 MMOL/L (8-16); BLOOD UREA NITROGEN 5 mg/dL (7-18); CALCIUM 8.8 mg/dL (8.5-10.1); CHLORIDE 102 mmol/L (98-107); CO2 36 mmol/L (21-32); CREATININE 0.7 mg/dL (0.55-1.3); GLUCOSE,RANDOM 99 mg/dL (74-106); MAGNESIUM 1.8 mg/dL (1.8-2.4); PHOSPHOROUS 3.8 mg/dL (2.5-4.9); POTASSIUM 4.1 mmol/L (3.5-5.1); SODIUM 143 mmol/L (136-145)
[2018-10-31] MEDS ORDERED: PT OWN MED DRAWER 7, Y5N ONE (08:53)
[2018-10-31] MEDS: ERTAPENEM SODIUM 1 GM in SODIUM CHLORIDE 50 ML IVPB SCH (09:41)
[2018-10-31] MEDS: POTASSIUM CHLORIDE 20 MEQ in DEXTROSE 5%-LACTATED RINGERS 1,000 ML IVPB SCH (09:41)
[2018-10-31] MEDS: FAMOTIDINE 20 MG/50 ML IVPB 20 MG/50 ML MG IVPB SCH (09:42)
[2018-10-31] MEDS: SERTRALINE HCL 50 MG TABLET (FP) PO SCH (09:42)
[2018-10-31] MEDS: POTASSIUM CHLORIDE TABS 10 MEQ TABLET.ER (FP) PO SCH (09:42)
[2018-10-31] MEDS: CHOLECALCIFEROL (VITAMIN D3) 1,000 UNIT TABLET (FP) PO SCH (09:42)
[2018-10-31] MEDS: QUINAPRIL HCL 10 MG TABLET (FP) PO SCH (09:42)
[2018-10-31] MEDS: ENOXAPARIN NA (PORCINE) 40 MG/0.4 ML DISP.SYRIN SQ SCH (09:43)
[2018-10-31] MEDS: BUDESONIDE/FORMETEROL FUMARATE 160/4.5 mcg INHALER IH SCH (09:43)
[2018-10-31] MEDS: PANTOPRAZOLE 40 MG TABLET (FP) PO SCH (09:43)
[2018-10-31] MEDS: ONDANSETRON 4 MG TABLET PO PRN (09:52)
--- NOTE | 2018-10-31 11:58 | PN ---
Progress Note (short form) - Note Progress Note: Hospitalist to document today. So far tolerating meals. UTI noted. ? D/C Wednesday.
--- NOTE | 2018-10-31 12:06 | PN ---
GI Progress Note Subjective: GI Note: Having BMs, No nausea or vomiting. Tolerating solids - Objective Vital Signs: Vital Signs Temperature 98.0 F 10/31/18 09:00 Pulse Rate 76 10/31/18 09:00 Respiratory Rate 20 10/31/18 09:00 Blood Pressure 132/65 10/31/18 09:00 O2 Sat by Pulse Oximetry (%) 95 10/31/18 08:00 Constitutional: Anxious ...Auscultate: Yes: Hypoactive Bowel Sounds ...Palpate: Yes: Soft, Other (nontender) Labs: CBC, BMP 10/31/18 07:00 10/31/18 07:00 Problem List - Problems (1) Intestinal adhesions with partial obstruction Assessment/Plan: Resolved SBO. Tolerating diet. Discouraged from using Kaopectate. Encouraged to seek weaning off narcotics. 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
--- NOTE | 2018-10-31 13:04 | PN ---
Teaching Attending Note Name of Resident: Vicki Cohen ATTENDING PHYSICIAN STATEMENT I saw and evaluated the patient. I reviewed the resident's note and discussed the case with the resident. I agree with the resident's findings and plan as documented with exceptions below. SUBJECTIVE: Patient seen and examined. An episode of vomiting last night, reports has had before, related to her migraine headaches and headache resolved after the vomiting, which is usually how her migraine presents. OBJECTIVE: ASSESSMENT AND PLAN:
--- NOTE | 2018-10-31 13:07 | DS ---
Physical Exam: SUBJECTIVE: Patient seen and examined, an episode of vomiting last night that resolved her migraine headache, which is usual for how her headaches usually present. Tolerating diet well, few more BMs noted. Suprapubic discomfort improved, urinary symptoms better, no fevers/chills or new concerns. OBJECTIVE: Vital Signs Period Temp Pulse Resp BP Sys/Ahn Pulse Ox Last 24 Hr 97.7 F-98.0 F 76-88 20-20 115-132/55-83 95-97 Intake & Output 10/28/18 10/29/18 10/30/18 10/31/18 23:59 23:59 23:59 23:59 Intake Total 832 1713 600 Balance 832 1713 600 Weight 179 lb 5.537 oz 181 lb 4 oz PHYSICAL EXAM GENERAL: The patient is awake, alert, and fully oriented, in no acute distress. HEAD: Normal with no signs of trauma. EYES: PERRL, extraocular movements intact, sclera anicteric, conjunctiva clear. No ptosis. ENT: Ears normal, nares patent, oropharynx clear without exudates, moist mucous membranes. NECK: Trachea midline, full range of motion, supple. LUNGS: Breath sounds equal, clear to auscultation bilaterally, no wheezes, no crackles, no accessory muscle use. HEART: Regular rate and rhythm, S1, S2 ABDOMEN: Soft, non distended, unchanged scars, normoactive bowel sounds, mild suprapubic tenderness, improved exam, non tender otherwise, no voluntary or involuntary guarding or rigidity, no CVA tenderness EXTREMITIES: 2+ pulses, warm, well-perfused, no edema. PSYCH: Normal mood, normal affect. SKIN: Warm, dry, normal turgor, no rashes or lesions noted LABS Laboratory Results - last 24 hr 10/31/18 10/31/18 07:00 07:00 WBC 4.0 RBC 3.49 L Hgb 10.8 Hct 32.8 MCV 94.0 MCH 30.8 MCHC 32.8 RDW 15.5 Plt Count 195 MPV 9.5 Absolute Neuts (auto) 2.2 Neutrophils % 56.2 D Lymphocytes % 27.5 Monocytes % 7.1 Eosinophils % 8.9 H Basophils % 0.3 Nucleated RBC % 0 Sodium 143 Potassium 4.1 Chloride 102 Carbon Dioxide 36 H Anion Gap 5 L BUN 5 L Creatinine 0.7 Creat Clearance w eGFR > 60 Random Glucose 99 Calcium 8.8 Phosphorus 3.8 Magnesium 1.8 Microbiology 10/28/18 19:33 Urine - Urine Clean Catch Urine Culture - Final Proteus Mirabilis CT A/P: Clinical information given: SBO Multiplanar imaging was performed utilizing intravenous as well as oral contrast. No evidence of pneumoperitoneum , abscess or free intraperitoneal fluid. Administered oral contrast is noted to traverse the small bowel and partially opacify the colon to the level of the rectum. Status post right hemicolectomy as on a previous CT study of 08/15/2018. Several dilated small bowel loops are seen within the right abdomen with a 5.4 cm maximum diameter. Overall the degree of small bowel distention appears improved in comparison to the prior CT study. The remainder of the exam demonstrates no definite interval change. Diffuse hepatic steatosis. No discrete hepatic mass lesion is seen. Status post cholecystectomy. Mild stable common bile duct dilatation. No gross intraductal calculus is identified. The spleen, pancreas, adrenal glands and kidneys demonstrate no discrete abnormality. No definite lymphadenopathy is identified on the basis of CT size criteria Moderate to marked left iliopsoas muscle atrophy. An epidural infusion catheter is seen in place with a right anterior pelvic subcutaneous reservoir/ device. Moderate stable chronic L1 vertebral body compression fracture without bony retropulsion. Marked multilevel lower lumbar degenerative disc changes. Bilateral femoral head avascular necrosis without associated femoral head deformity. IMPRESSION: Dilated small bowel loops are seen within the right abdomen/pelvis suggestive of partial small bowel obstruction. Administered oral contrast is noted to traverse the length of the small bowel and partially opacify the colon. Overall the degree of small bowel dilatation has improved in comparison to a previous CT study of 08/15/2018. The remainder of the exam demonstrates no obvious interval change. Status post right hemicolectomy. Diffuse hepatic steatosis. Status post cholecystectomy. Mild stable common bile duct dilatation. Moderate to marked left iliopsoas muscle atrophy. Lumbar spine epidural infusion catheter in place. Moderate chronic L1 vertebral body compression fracture. Bilateral femoral head avascular necrosis. Reported By: John Rowley MD 10/28/18 [id number] HOSPITAL COURSE: Date of Admission:10/29/18 Date of Discharge: 10/31/18 Minutes to complete discharge: 40 Discharge Summary Reason For Visit: SMALL BOWEL OBSTRUCTION Current Active Problems Intestinal adhesions with partial obstruction (Acute) Narcotic dependence (Acute) SBO (small bowel obstruction) (Acute) Hospital Course: 78 yof with PMhx of multiple abdominal surgeries (51 per patient), prior admissions with SBO managed conservatively, last in 08/2018, chronic abdominal pain on morphine pump (gets 1 mg IV daily per patient), chronic anemia suspected from chronic GI losses from ava-anastomotic ulcer on weekly iron infusion via Portacath,CAD, angina, migraine admitted with abdominal pain, partial SBO and urinary symptoms. She had a CT A/p on admission that was concerning for partial small bowel obstruction. She was seen by GI and surgery. She never had an NG tube. Her symptoms rapidly improved and her diet was advanced which she tolerated well. She has been moving her bowels with no concerns. Her follow up Abdominal xray showed contrast upto colon. She is advied to avoid kaopectate and taper narcotics outpatient by gastroenterology. She was noted with suprapubic discomfort and urinary symptoms and urinalysis suggestive of UTI. She was started on ertapenem given her H/o ESBL UTI, and infectious disease was consulted, Her symptoms improved. Her urine culture grew Proteus only resistant to macrobid. She reported allergy to amoxicillin (Throat closing on doses higher than 500 bid reportedly), she will be transitioned to levaquin for 1 week course. Her SBO could have been precipitated by her UTI. She also had episodes of migrainous headaches, which resolved with imitrex. She was also seen by hematology, given on weekly iron infusions via Jason-cath with no additional recommendations. her hemoglobin was stable during her stay. Condition: Good - Instructions Diet, Activity, Other Instructions: MEDICATIONS: Levaquin 500 mg daily for additional 4 days starting tomorrow 11/01/2018. Lactobacillus while on antibiotics. DIET: cardiac as tolerated. Take small bites and sips. Avoid nuts/seeds or large pieces of food till seen by your doctor. FOLLOW UP: Primary care doctor in 1 week in 1-2 weeks. If you notice any residual urinary symptoms at the end of your antibiotic course , please call your doctor for further directions and if longer days warranted. You are advised by Dr. Stewart to avoid using kaopectate and to wean off narcotics to avoid future similar concerns. Please discuss with your doctor in this regard. If you notice any new fevers, chills, worsening belly pain, nausea/vomiting, inability to eat, worsening urinary symptoms or new concerns, please call 911 or come to ED. Referrals: Jong Rodgers MD [Primary Care Provider] - Savannah Stewart MD [Staff Physician] - Marcin Garcia MD [Staff Physician] - Disposition: HOME - Home Medications Comprehensive Discharge Medication List: Ambulatory Orders Cholecalciferol (Vitamin D3) [Vitamin D3] 2,000 unit PO DAILY 11/02/16 Diltiazem HCl [Diltiazem 24Hr Cd] 240 mg PO HS 11/02/16 Levothyroxine [Synthroid -] 25 mcg PO DAILY 11/02/16 Montelukast Na [Singulair -] 10 mg PO HS 11/02/16 Nitroglycerin [Nitrostat] 0.4 mg SL PRN PRN 11/02/16 Sertraline HCl [Zoloft -] 100 mg PO DAILY 11/02/16 Sumatriptan Succinate [Imitrex -] 100 mg PO PRN 11/02/16 Polyethylene Glycol 3350 [Miralax 119 gm Btl -] 17 gm PO BID bottle 11/10/16 Acetaminophen [Tylenol .Regular Strength -] 650 mg PO Q4H PRN #0 tablet Quinapril HCl [Accupril -] 10 mg PO DAILY #30 tablet 12/07/16 Meclizine HCl [Antivert -] 25 mg PO TID PRN 11/05/17 Pregabalin [Lyrica] 25 mg PO TID 11/05/17 Potassium Chloride [K-Dur -] 10 meq PO DAILY 12/02/17 Ranitidine HCl 150 mg PO HS 12/02/17 Vitamin E 1,000 unit PO DAILY 12/02/17 Budesonide/Formeterol Fumarate [SYMBICORT 160/4.5mcg -] 2 puff IH PRN PRN Pantoprazole Sodium [Protonix -] 40 mg PO BID 06/21/18 Pantoprazole Sodium [Protonix -] 40 mg PO BID #60 tablet.ec 08/21/18 L. Acidophilus/L.bulgaricus [Lactobacillus Tablet] 1 each PO DAILY 4 Days #4 tablet 10/31/18 levoFLOXacin [Levaquin -] 500 mg PO DAILY 4 Days #4 tablet 10/31/18 This patient is new to me today: No Emergency Visit: Yes ED Registration Date: 10/29/18 Care time: The patient presented to the Emergency Department on the above date and was hospitalized for further evaluation of their emergent condition. Critical Care patient: No - Discharge Referral Referred to [facility] No
[2018-10-31 13:56] VITALS: BP 125/62; PULSE 84; TEMP 98
== END 2018-10-31 15:57 | disposition home or self-care (01) | DRG 389 ==
LOC: SUPCPDRO 17:11 → JER 17:11 → JERBED 22:59 → J7W 10-29 00:22 → OBSVTOIN 10-29 07:41
PROVIDERS: ADMIT Internal Medicine; ATTEND Hospitalist
DX: K56.51 Intestinal adhesions [bands], with partial obstruction (principal); N39.0 Urinary tract infection, site not specified; G43.909 Migraine, unspecified, not intractable, without status migrainosus; I10 Essential (primary) hypertension; K21.9 Gastro-esophageal reflux disease without esophagitis; E87.6 Hypokalemia; I25.119 Atherosclerotic heart disease of native coronary artery with unspecified angina pectoris; D64.9 Anemia, unspecified; E03.9 Hypothyroidism, unspecified
CPT/HCPCS: 36415; 74018-TC-FY; 74019-TC-FY; 74177-TC; 80048; 80053; 81003; 81015; 83690; 83735; 84100; 85025; 85027; 87086; 87177; 87186; 87209; 93005; 93010; 99283-25; G0378; Q9967

== ENCOUNTER 2018-11-09 07:19 | Day surgery (SDC) | payer OTHER ==
[2018-11-09] MEDS ORDERED: IRON SUCROSE INJECTION 200 MG in SODIUM CHLORIDE 100 ML IVPB ONE (10:00)
[2018-11-09 17:23] VITALS: TEMP 98.1
[2018-11-09 17:25] VITALS: BP 130/70; PULSE 98
== END 2018-11-09 14:00 | disposition home or self-care (01) ==
LOC: JONCNONCHE 07:19 → J7W 12:55 → JONCNONCHE 14:00
PROVIDERS: ATTEND Internal Medicine Hematology & Oncology
PROC: 3E033GC Introduction of Other Therapeutic Substance into Peripheral Vein, Percutaneous Approach (ICD-10-PCS; principal; 2018-11-09)
DX: D50.9 Iron deficiency anemia, unspecified (principal)
CPT/HCPCS: 96365; J1756

== ENCOUNTER 2018-11-16 07:07 | Day surgery (SDC) | payer OTHER ==
[2018-11-16] MEDS ORDERED: IRON SUCROSE INJECTION 200 MG in SODIUM CHLORIDE 100 ML IVPB ONE (10:00)
[2018-11-16 15:52] VITALS: BP 104/63; TEMP 98.4
[2018-11-16 15:57] VITALS: PULSE 93
[2018-11-16] MEDS ORDERED: PORTA CATH FLUSH 10 ML IVPUSH ONE (16:00)
== END 2018-11-16 14:30 | disposition home or self-care (01) ==
LOC: JONCCHEMO 07:07 → J7W 13:06 → JONCCHEMO 14:30
PROVIDERS: ATTEND Internal Medicine Hematology & Oncology
PROC: 3E033GC Introduction of Other Therapeutic Substance into Peripheral Vein, Percutaneous Approach (ICD-10-PCS; principal; 2018-11-16)
DX: D50.9 Iron deficiency anemia, unspecified (principal)
CPT/HCPCS: 96365; J1756

== ENCOUNTER 2018-11-25 07:06 | Day surgery (SDC) | payer OTHER ==
[2018-11-25] MEDS ORDERED: IRON SUCROSE INJECTION 200 MG in SODIUM CHLORIDE 100 ML IVPB ONE (10:00)
[2018-11-25 19:30] VITALS: BP 137/65; PULSE 91; TEMP 97.8
== END 2018-11-25 13:35 | disposition home or self-care (01) ==
LOC: JONCCHEMO 07:06 → JONCNONCHE 07:06 → J7W 12:40 → JONCNONCHE 13:35
PROVIDERS: ATTEND Internal Medicine Hematology & Oncology
PROC: 3E033GC Introduction of Other Therapeutic Substance into Peripheral Vein, Percutaneous Approach (ICD-10-PCS; principal; 2018-11-25)
DX: D50.9 Iron deficiency anemia, unspecified (principal)
CPT/HCPCS: 96365; J1756

== ENCOUNTER 2018-12-02 07:10 | Day surgery (SDC) | payer OTHER ==
[2018-12-02] MEDS ORDERED: IRON SUCROSE INJECTION 200 MG in SODIUM CHLORIDE 100 ML IVPB ONE (12:00)
[2018-12-02 13:31] VITALS: BP 136/67; PULSE 103; TEMP 98.4
== END 2018-12-02 13:37 | disposition home or self-care (01) ==
LOC: JONCNONCHE 07:10 → J7W 12:43 → JONCNONCHE 13:37
PROVIDERS: ATTEND Internal Medicine Hematology & Oncology
PROC: 3E033GC Introduction of Other Therapeutic Substance into Peripheral Vein, Percutaneous Approach (ICD-10-PCS; principal; 2018-12-02)
DX: D50.9 Iron deficiency anemia, unspecified (principal)
CPT/HCPCS: 96365; J1756

== ENCOUNTER 2018-12-16 07:19 | Day surgery (SDC) | payer OTHER ==
[2018-12-16] MEDS ORDERED: IRON SUCROSE INJECTION 200 MG in SODIUM CHLORIDE 100 ML IVPB ONE (12:00)
[2018-12-16 15:40] VITALS: BP 140/77; PULSE 102; TEMP 98
== END 2018-12-16 13:45 | disposition home or self-care (01) ==
LOC: JONCNONCHE 07:19 → J7W 12:57 → JONCNONCHE 13:45
PROVIDERS: ATTEND Internal Medicine Hematology & Oncology
PROC: 3E033GC Introduction of Other Therapeutic Substance into Peripheral Vein, Percutaneous Approach (ICD-10-PCS; principal; 2018-12-16)
DX: D50.9 Iron deficiency anemia, unspecified (principal)
CPT/HCPCS: 96365; J1756

== ENCOUNTER 2018-12-30 07:07 | Day surgery (SDC) | payer OTHER ==
[2018-12-30] MEDS ORDERED: IRON SUCROSE INJECTION 200 MG in SODIUM CHLORIDE 100 ML IVPB ONE (10:00)
[2018-12-30 18:22] VITALS: BP 151/80; PULSE 108; TEMP 98.5
== END 2018-12-30 13:35 | disposition home or self-care (01) ==
LOC: JONCCHEMO 07:07 → JONCNONCHE 07:07 → J7W 12:50 → JONCNONCHE 13:35
PROVIDERS: ATTEND Internal Medicine Hematology & Oncology
PROC: 3E033GC Introduction of Other Therapeutic Substance into Peripheral Vein, Percutaneous Approach (ICD-10-PCS; principal; 2018-12-30)
DX: D50.9 Iron deficiency anemia, unspecified (principal)
CPT/HCPCS: 96365; J1756

== ENCOUNTER 2019-01-06 07:31 | Day surgery (SDC) | payer OTHER ==
[2019-01-06] MEDS ORDERED: IRON SUCROSE INJECTION 200 MG in SODIUM CHLORIDE 100 ML IVPB ONE (13:45)
[2019-01-06] MEDS ORDERED: SODIUM CHLORIDE 500 ML IV ONE (13:45)
[2019-01-06 16:01] VITALS: BP 102/41; PULSE 101; TEMP 98.2
[2019-01-06] MEDS ORDERED: PORTA CATH FLUSH 10 ML IVPUSH ONE (16:05)
== END 2019-01-06 15:10 | disposition home or self-care (01) ==
LOC: JONCCHEMO 07:31 → J7W 12:26 → JONCCHEMO 15:10
PROVIDERS: ATTEND Internal Medicine Hematology & Oncology
PROC: 3E033GC Introduction of Other Therapeutic Substance into Peripheral Vein, Percutaneous Approach (ICD-10-PCS; principal; 2019-01-06)
DX: D50.9 Iron deficiency anemia, unspecified (principal)
CPT/HCPCS: 96360; 96361; 96365; J1756

== ENCOUNTER 2019-01-20 07:12 | Day surgery (SDC) | payer OTHER ==
[2019-01-20] MEDS ORDERED: IRON SUCROSE INJECTION 200 MG in SODIUM CHLORIDE 100 ML IVPB ONE (12:00)
[2019-01-20 15:40] VITALS: TEMP 98.9
[2019-01-20 15:54] VITALS: BP 129/68; PULSE 116
== END 2019-01-20 14:15 | disposition home or self-care (01) ==
LOC: JONCNONCHE 07:12 → J7W 13:04 → JONCNONCHE 14:15
PROVIDERS: ATTEND Internal Medicine Hematology & Oncology
PROC: 3E033GC Introduction of Other Therapeutic Substance into Peripheral Vein, Percutaneous Approach (ICD-10-PCS; principal; 2019-01-20)
DX: D50.9 Iron deficiency anemia, unspecified (principal)
CPT/HCPCS: 96365; J1756

== ENCOUNTER 2019-01-27 07:09 | Day surgery (SDC) | payer OTHER ==
[2019-01-27] MEDS ORDERED: IRON SUCROSE INJECTION 200 MG in SODIUM CHLORIDE 100 ML IVPB ONE (12:00)
[2019-01-27 17:53] VITALS: TEMP 97.9
[2019-01-27] MEDS ORDERED: PORTA CATH FLUSH 10 ML IVPUSH ONE (17:53)
[2019-01-27 17:54] VITALS: BP 125/61; PULSE 108
== END 2019-01-27 13:50 | disposition home or self-care (01) ==
LOC: JONCNONCHE 07:09 → J7W 12:59 → JONCNONCHE 13:50
PROVIDERS: ATTEND Internal Medicine Hematology & Oncology
PROC: 3E033GC Introduction of Other Therapeutic Substance into Peripheral Vein, Percutaneous Approach (ICD-10-PCS; principal; 2019-01-27)
DX: D50.9 Iron deficiency anemia, unspecified (principal)
CPT/HCPCS: 96365; J1756

== ENCOUNTER 2019-02-03 07:34 | Day surgery (SDC) | payer OTHER ==
[2019-02-03] MEDS ORDERED: IRON SUCROSE INJECTION 200 MG in SODIUM CHLORIDE 100 ML IVPB ONE (12:00)
[2019-02-03] MEDS ORDERED: PORTA CATH FLUSH 10 ML IVPUSH ONE (13:45)
[2019-02-03 13:48] VITALS: BP 140/50; PULSE 102; TEMP 98.2
== END 2019-02-03 13:45 | disposition home or self-care (01) ==
LOC: JONCNONCHE 07:34 → JONCCHEMO 07:34 → J7W 13:02 → JONCNONCHE 13:45
PROVIDERS: ATTEND Internal Medicine Hematology & Oncology
PROC: 3E033GC Introduction of Other Therapeutic Substance into Peripheral Vein, Percutaneous Approach (ICD-10-PCS; principal; 2019-02-03)
DX: D50.9 Iron deficiency anemia, unspecified (principal)
CPT/HCPCS: 96365; 96372; J1756

== ENCOUNTER 2019-02-17 07:13 | Day surgery (SDC) | payer OTHER ==
[2019-02-17] MEDS ORDERED: IRON SUCROSE INJECTION 200 MG in SODIUM CHLORIDE 100 ML IVPB ONE (11:00)
[2019-02-17 15:13] VITALS: TEMP 98.5
[2019-02-17] MEDS ORDERED: PORTA CATH FLUSH 10 ML IVPUSH ONE (15:13)
[2019-02-17 15:14] VITALS: BP 121/70; PULSE 92
== END 2019-02-17 14:10 | disposition home or self-care (01) ==
LOC: JONCNONCHE 07:13 → J7W 13:09 → JONCNONCHE 14:10
PROVIDERS: ATTEND Internal Medicine Hematology & Oncology
PROC: 3E033GC Introduction of Other Therapeutic Substance into Peripheral Vein, Percutaneous Approach (ICD-10-PCS; principal; 2019-02-17)
DX: D50.9 Iron deficiency anemia, unspecified (principal)
CPT/HCPCS: 96365; J1756

== ENCOUNTER 2019-02-24 07:08 | Day surgery (SDC) | payer OTHER ==
[2019-02-24] MEDS ORDERED: IRON SUCROSE INJECTION 200 MG in SODIUM CHLORIDE 100 ML IVPB ONE (10:00)
[2019-02-24 14:40] VITALS: TEMP 98.3
[2019-02-24] MEDS ORDERED: PORTA CATH FLUSH 10 ML IVPUSH ONE (14:40)
[2019-02-24 14:41] VITALS: BP 133/71; PULSE 104
== END 2019-02-24 13:55 | disposition home or self-care (01) ==
LOC: JONCCHEMO 07:08 → J7W 13:00 → JONCCHEMO 13:55
PROVIDERS: ATTEND Internal Medicine Hematology & Oncology
PROC: 3E033GC Introduction of Other Therapeutic Substance into Peripheral Vein, Percutaneous Approach (ICD-10-PCS; principal; 2019-02-24)
DX: D50.9 Iron deficiency anemia, unspecified (principal)
CPT/HCPCS: 96365; J1756

== ENCOUNTER 2019-03-10 06:18 | Day surgery (SDC) | payer OTHER ==
[2019-03-10] MEDS ORDERED: IRON SUCROSE INJECTION 200 MG in SODIUM CHLORIDE 100 ML IVPB ONE (10:00)
[2019-03-10 14:00] VITALS: BP 112/72; PULSE 64; TEMP 97.8
== END 2019-03-10 13:55 | disposition home or self-care (01) ==
LOC: JONCNONCHE 06:18 → JONCCHEMO 06:18 → J7W 12:55 → JONCNONCHE 13:55
PROVIDERS: ATTEND Internal Medicine Hematology & Oncology
PROC: 3E043GC Introduction of Other Therapeutic Substance into Central Vein, Percutaneous Approach (ICD-10-PCS; principal; 2019-03-10)
DX: D50.9 Iron deficiency anemia, unspecified (principal)
CPT/HCPCS: 96365; J1756

== ENCOUNTER 2019-03-17 07:17 | Day surgery (SDC) | payer OTHER ==
[2019-03-17] MEDS ORDERED: IRON SUCROSE INJECTION 200 MG in SODIUM CHLORIDE 100 ML IVPB ONE (10:00)
[2019-03-17 15:35] VITALS: TEMP 99.4
[2019-03-17 15:44] VITALS: BP 127/65; PULSE 84
[2019-03-17] MEDS ORDERED: PORTA CATH FLUSH 10 ML IVPUSH ONE (15:44)
== END 2019-03-17 14:10 | disposition home or self-care (01) ==
LOC: JONCNONCHE 07:17 → J7W 12:52 → JONCNONCHE 14:10
PROVIDERS: ATTEND Internal Medicine Hematology & Oncology
DX: D50.9 Iron deficiency anemia, unspecified (principal)
CPT/HCPCS: 96365; J1756

== ENCOUNTER 2019-03-24 06:34 | Day surgery (SDC) | payer OTHER ==
[2019-03-24] MEDS ORDERED: IRON SUCROSE INJECTION 200 MG in SODIUM CHLORIDE 100 ML IVPB ONE (14:00)
[2019-03-24 14:51] VITALS: TEMP 97.9
[2019-03-24 14:55] VITALS: BP 153/67; PULSE 98
[2019-03-24] MEDS ORDERED: PORTA CATH FLUSH 10 ML IVPUSH ONE (14:55)
== END 2019-03-24 14:45 | disposition home or self-care (01) ==
LOC: JONCNONCHE 06:34 → J7W 12:51 → JONCNONCHE 14:45
PROVIDERS: ATTEND Internal Medicine Hematology & Oncology
PROC: 3E033GC Introduction of Other Therapeutic Substance into Peripheral Vein, Percutaneous Approach (ICD-10-PCS; principal; 2019-03-24)
DX: D50.9 Iron deficiency anemia, unspecified (principal)
CPT/HCPCS: 96365; J1756

== ENCOUNTER → 2019-03-31 | Day surgery (SDC) | payer OTHER | LOC: JONCCHEMO 06:44 ==

== ENCOUNTER 2019-04-07 06:49 | Day surgery (SDC) | payer OTHER ==
[2019-04-07] MEDS ORDERED: IRON SUCROSE INJECTION 200 MG in SODIUM CHLORIDE 100 ML IVPB ONE (09:00)
[2019-04-07 16:05] VITALS: TEMP 97.5
[2019-04-07 16:06] VITALS: BP 132/65; PULSE 102
[2019-04-07] MEDS ORDERED: PORTA CATH FLUSH 10 ML IVPUSH ONE (16:12)
== END 2019-04-07 14:15 | disposition home or self-care (01) ==
LOC: JONCCHEMO 06:49 → J7W 12:50 → JONCCHEMO 14:15
PROVIDERS: ATTEND Internal Medicine Hematology & Oncology
PROC: 3E033GC Introduction of Other Therapeutic Substance into Peripheral Vein, Percutaneous Approach (ICD-10-PCS; principal; 2019-04-07)
DX: D50.9 Iron deficiency anemia, unspecified (principal)
CPT/HCPCS: 96365; J1756

== ENCOUNTER 2019-07-10 05:42 | Day surgery (SDC) | payer OTHER ==
[2019-07-10] MEDS ORDERED: IRON SUCROSE INJECTION 200 MG in SODIUM CHLORIDE 100 ML IVPB ONE (11:00)
[2019-07-10 13:21] LABS: BASO % 0.4 % (0-2.0); EOS % 1.8 % (0-4.5); HEMATOCRIT 38.7 % (32.4-45.2); HEMOGLOBIN 12.6 GM/dL (10.7-15.3); LYMPH % 14.8 % (8-40); MCHC 32.5 g/dl (32.0-36.0); MEAN CELL VOLUME 98.4 fl (80-96); MEAN PLT VOLUME 9.3 fl (7.5-11.1); MONO % 3.9 % (3.8-10.2); NEUT % 79.1 % (42.8-82.8); PLATELET COUNT 255 K/MM3 (134-434); RBC 3.93 M/mm3 (3.60-5.2); RDW 13.8 % (11.6-15.6); WHITE BLOOD COUNT 6.1 K/mm3 (4.0-10.0)
[2019-07-10 13:36] LABS: ALBUMIN 3.9 g/dl (3.4-5.0); BILIRUBIN,TOTAL 0.2 mg/dL (0.2-1); BLOOD UREA NITROGEN 16.6 mg/dL (7-18); CALCIUM 9.2 mg/dL (8.5-10.1); TOT PROT 6.7 g/dl (6.4-8.2)
[2019-07-10 13:37] VITALS: TEMP 97.7
[2019-07-10] MEDS ORDERED: PORTA CATH FLUSH 10 ML IVPUSH ONE (13:37)
[2019-07-10 13:38] VITALS: BP 102/64; PULSE 70
== END 2019-07-10 13:25 | disposition home or self-care (01) ==
LOC: JONCCHEMO 05:42 → J7W 12:28 → JONCCHEMO 13:25
PROVIDERS: ATTEND Internal Medicine Hematology & Oncology
PROC: 3E033GC Introduction of Other Therapeutic Substance into Peripheral Vein, Percutaneous Approach (ICD-10-PCS; principal; 2019-07-10)
DX: D50.9 Iron deficiency anemia, unspecified (principal)
CPT/HCPCS: 36415; 80053; 82607; 82728; 83540; 83550; 85025; 96365; J1756

== ENCOUNTER 2020-10-29 07:18 | Day surgery (SDC) | payer OTHER ==
[2020-10-29] MEDS ORDERED: IRON SUCROSE INJECTION 200 MG in SODIUM CHLORIDE 100 ML IVPB ONE (10:00)
[2020-10-29 17:40] VITALS: BP 126/60; PULSE 92; TEMP 98.4
== END 2020-10-29 18:53 | disposition home or self-care (01) ==
LOC: JONCNONCHE 07:18
PROVIDERS: ATTEND Internal Medicine Hematology & Oncology
PROC: 3E033GC Introduction of Other Therapeutic Substance into Peripheral Vein, Percutaneous Approach (ICD-10-PCS; principal; 2020-10-29)
DX: D50.9 Iron deficiency anemia, unspecified (principal)
CPT/HCPCS: 96365; J1756

== ENCOUNTER 2020-11-18 07:37 | Day surgery (SDC) | payer OTHER ==
[~2020-11-18 07:37] MED LIST changes: -IRON SUCROSE INJECTION 100 MG in SODIUM CHLORIDE 100 ML IVPB ONE; +IRON SUCROSE INJECTION 200 MG in SODIUM CHLORIDE 100 ML IVPB ONE
[2020-11-18] MEDS ORDERED: IRON SUCROSE INJECTION 200 MG in SODIUM CHLORIDE 100 ML IVPB ONE (12:30)
[2020-11-18 17:05] VITALS: TEMP 98.5
[2020-11-18 17:06] VITALS: BP 133/50; PULSE 76
== END 2020-11-18 14:10 | disposition home or self-care (01) ==
LOC: JONCNONCHE 07:37
PROVIDERS: ATTEND Internal Medicine Hematology & Oncology
PROC: 3E033GC Introduction of Other Therapeutic Substance into Peripheral Vein, Percutaneous Approach (ICD-10-PCS; principal; 2020-11-18)
DX: D50.9 Iron deficiency anemia, unspecified (principal)
CPT/HCPCS: 96365; J1756

== ENCOUNTER 2020-11-27 07:52 | Day surgery (SDC) | payer OTHER ==
[2020-11-27] MEDS ORDERED: IRON SUCROSE INJECTION 200 MG in SODIUM CHLORIDE 100 ML IVPB ONE (11:00)
[2020-11-27 14:14] LABS: BASO % 0.2 % (0-2.0); EOS % 1.7 % (0-4.5); HEMATOCRIT 38.2 % (32.4-45.2); HEMOGLOBIN 12.4 GM/dL (10.7-15.3); LYMPH % 13.6 % (8-40); MCH 31.5 pg (25.7-33.7); MCHC 32.6 g/dl (32.0-36.0); MEAN CELL VOLUME 96.6 fl (80-96); MEAN PLT VOLUME 9.5 fl (7.5-11.1); NEUT % 78.5 % (42.8-82.8); PLATELET COUNT 254 K/MM3 (134-434); RBC 3.96 M/mm3 (3.60-5.2); RDW 15.1 % (11.6-15.6); WHITE BLOOD COUNT 6.6 K/mm3 (4.0-10.0)
[2020-11-27 14:26] LABS: CALCIUM 9.5 mg/dL (8.5-10.1)
[2020-11-27 14:27] LABS: ALBUMIN 4.1 g/dl (3.4-5.0); BLOOD UREA NITROGEN 10.8 mg/dL (7-18)
[2020-11-27 14:31] LABS: BILIRUBIN,TOTAL 0.3 mg/dL (0.2-1); TOT PROT 7.2 g/dl (6.4-8.2)
[2020-11-27 17:56] VITALS: BP 120/60; PULSE 96; TEMP 98.5
[2020-11-27] MEDS ORDERED: PORTA CATH FLUSH 10 ML IVPUSH ONE (17:56)
== END 2020-11-27 17:57 | disposition home or self-care (01) ==
LOC: JONCNONCHE 07:52
PROVIDERS: ATTEND Internal Medicine Hematology & Oncology
PROC: 3E033GC Introduction of Other Therapeutic Substance into Peripheral Vein, Percutaneous Approach (ICD-10-PCS; principal; 2020-11-27)
DX: D50.9 Iron deficiency anemia, unspecified (principal)
CPT/HCPCS: 36415; 80053; 85025; 85045; 96365; J1756

== ENCOUNTER 2020-12-02 04:53 | Day surgery (SDC) | payer OTHER ==
[2020-12-02 08:41] VITALS: BMI 28.3
[2020-12-02 10:18] VITALS: TEMP 98.2
[2020-12-02 11:09] VITALS: BP 113/50; PULSE 68
== END 2020-12-02 11:26 | disposition home or self-care (01) ==
LOC: JASU-ENDO 04:53
PROVIDERS: ATTEND Internal Medicine Gastroenterology
PROC: 0DB78ZX Excision of Stomach, Pylorus, Via Natural or Artificial Opening Endoscopic, Diagnostic (ICD-10-PCS; 2020-12-02)
PROC: 0DBB8ZX Excision of Ileum, Via Natural or Artificial Opening Endoscopic, Diagnostic (ICD-10-PCS; 2020-12-02)
PROC: 0DB98ZX Excision of Duodenum, Via Natural or Artificial Opening Endoscopic, Diagnostic (ICD-10-PCS; principal; 2020-12-02 09:35)
DX: K29.50 Unspecified chronic gastritis without bleeding (principal); K63.3 Ulcer of intestine; K64.8 Other hemorrhoids; Z98.0 Intestinal bypass and anastomosis status; K56.699 Other intestinal obstruction unspecified as to partial versus complete obstruction
CPT/HCPCS: 88305-TC; 88342-TC

== ENCOUNTER 2020-12-04 14:10 | Day surgery (SDC) | payer OTHER ==
[2020-12-04 16:53] VITALS: TEMP 98.2
[2020-12-04 16:55] VITALS: BP 133/54; PULSE 78
[2020-12-04] MEDS ORDERED: PORTA CATH FLUSH 10 ML IVPUSH ONE (16:55)
== END 2020-12-04 16:58 | disposition home or self-care (01) ==
LOC: JONCNONCHE 14:10
PROVIDERS: ATTEND Internal Medicine Hematology & Oncology
PROC: 3E033GC Introduction of Other Therapeutic Substance into Peripheral Vein, Percutaneous Approach (ICD-10-PCS; principal; 2020-12-04)
DX: D50.9 Iron deficiency anemia, unspecified (principal)
CPT/HCPCS: 96365; J1756

== ENCOUNTER 2021-02-03 06:34 | Inpatient (IN) | payer OTHER ==
[2021-02-03] MEDS ORDERED: ONDANSETRON 4 MG/2 ML VIAL IVPUSH ONE ×3 (07:47→10:40)
[2021-02-03] MEDS ORDERED: morphine CARPU-JECT 2 MG/1 ML DISP.SYRIN IVPUSH ONE (07:47)
[2021-02-03] MEDS ORDERED: ONDANSETRON 4 MG/2 ML VIAL ONE ×2 (07:51→11:45)
[2021-02-03] MEDS ORDERED: MORPHINE SULFATE 2 MG/ML VIAL ONE (07:51)
[2021-02-03] MEDS ORDERED: METOCLOPRAMIDE HCL INJECTION 10 MG/2 ML VIAL IVPUSH ONE (07:52)
[2021-02-03] MEDS ORDERED: METOCLOPRAMIDE HCL INJECTION 10 MG/2 ML VIAL ONE (07:54)
[2021-02-03] MEDS ORDERED: ACETAMINOPHEN INJECTION 100 ML IVPB ONE (07:54)
[2021-02-03] MEDS ORDERED: SODIUM CHLORIDE 500 ML IV STA (08:03)
[2021-02-03 08:17] LABS: INR 0.88 (0.83-1.09); PROTHROMBIN TIME (PATIENT) 10.9 SEC (9.7-13.0)
[2021-02-03 08:20] LABS: ACTIVATED PTT 19.7 SECONDS (25.2-36.5)
[2021-02-03 08:23] LABS: BASO % 0.2 % (0-2.0); EOS % 0.1 % (0-4.5); HEMATOCRIT 39.5 % (32.4-45.2); HEMOGLOBIN 13.2 GM/dL (10.7-15.3); LYMPH % 6.6 % (8-40); MCH 32.2 pg (25.7-33.7); MCHC 33.4 g/dl (32.0-36.0); MEAN CELL VOLUME 96.4 fl (80-96); MEAN PLT VOLUME 9.7 fl (7.5-11.1); MONO % 6.3 % (3.8-10.2); NEUT % 86.8 % (42.8-82.8); PLATELET COUNT 298 K/MM3 (134-434); RDW 14.4 % (11.6-15.6); WHITE BLOOD COUNT 9.1 K/mm3 (4.0-10.0)
[2021-02-03 08:34] LABS: CALCIUM 10.1 mg/dL (8.5-10.1)
[2021-02-03 08:35] LABS: ALBUMIN 4.2 g/dl (3.4-5.0)
[2021-02-03 08:38] LABS: CREATININE 0.9 mg/dL (0.55-1.3)
[2021-02-03 08:39] LABS: TOT PROT 7.5 g/dl (6.4-8.2)
[2021-02-03 08:40] LABS: BILIRUBIN,TOTAL 0.3 mg/dL (0.2-1)
[2021-02-03] MEDS ORDERED: ONDANSETRON *ODT* 4 MG TABLET ONE (09:38)
[2021-02-03 10:28] LABS: EPI CELLS 3 /uL (0-25.1); HYALINE CASTS 5 /uL (0-3.1); URINE APPEARANCE TURBID; URINE BACTERIA >9,000 /uL (0-1359); URINE BILIRUBIN NEGATIVE (NEGATIVE); URINE COLOR YELLOW; URINE GLUCOSE (UA) NEGATIVE (NEGATIVE); URINE KETONE TRACE (NEGATIVE); URINE LEUK ESTERASE 1+ (NEGATIVE); URINE NITRITE NEGATIVE (NEGATIVE); URINE PROTEIN NEGATIVE (NEGATIVE); URINE RBC 48 /uL (0-23.9); URINE WBC 382 /uL (0-25.8)
[2021-02-03] MEDS ORDERED: CEFTRIAXONE 1,000 MG in DEXTROSE 5%-WATER - 50 ML IVPB ONE (10:38)
[2021-02-03] MEDS ORDERED: morphine CARPU-JECT 4 MG/1 ML DISP.SYRIN IVPUSH ONE (10:40)
[2021-02-03] MEDS ORDERED: morphine SULFATE 4 MG/ML VIAL ONE (11:45)
[2021-02-03] MEDS ORDERED: CEFTRIAXONE 1 GM/50 ML BAG ONE ×2 (11:45)
[2021-02-03] MEDS ORDERED: ACETAMINOPHEN 325 MG TABLET (FP) PO PRN (11:59)
[2021-02-03] MEDS: ACETAMINOPHEN/CAFFEINE/BUTALBITAL 1 TAB PO PRN (14:32)
[2021-02-03] MEDS: HEPARIN NA (PORCINE) 5,000 UNITS/ML 1ML VIAL SQ SCH ×2 (14:33→21:22)
[2021-02-03] MEDS: METOCLOPRAMIDE HCL INJECTION 10 MG/2 ML VIAL IVPUSH PRN (17:37)
[2021-02-04] MEDS: METOCLOPRAMIDE HCL INJECTION 10 MG/2 ML VIAL IVPUSH PRN ×2 (01:54→08:55)
[2021-02-04] MEDS: HEPARIN NA (PORCINE) 5,000 UNITS/ML 1ML VIAL SQ SCH ×3 (06:36→21:18)
[2021-02-04] MEDS: LEVOTHYROXINE NA 25 MCG TABLET (FP) PO SCH (06:36)
[2021-02-04 07:21] LABS: BASO % 0.1 % (0-2.0); EOS % 0.1 % (0-4.5); HEMATOCRIT 34.5 % (32.4-45.2); HEMOGLOBIN 11.5 GM/dL (10.7-15.3); LYMPH % 16.8 % (8-40); MCH 32.4 pg (25.7-33.7); MCHC 33.2 g/dl (32.0-36.0); MEAN CELL VOLUME 97.4 fl (80-96); MEAN PLT VOLUME 9.3 fl (7.5-11.1); MONO % 6.4 % (3.8-10.2); NEUT % 76.6 % (42.8-82.8); PLATELET COUNT 242 K/MM3 (134-434); RBC 3.54 M/mm3 (3.60-5.2); RDW 14.1 % (11.6-15.6); WHITE BLOOD COUNT 6.3 K/mm3 (4.0-10.0)
[2021-02-04 07:45] LABS: BLOOD UREA NITROGEN 15.7 mg/dL (7-18)
[2021-02-04 07:46] LABS: ALBUMIN 3.6 g/dl (3.4-5.0); CALCIUM 9.1 mg/dL (8.5-10.1)
[2021-02-04 07:50] LABS: BILIRUBIN,TOTAL 0.4 mg/dL (0.2-1); CREATININE 0.8 mg/dL (0.55-1.3); PHOSPHOROUS 3.9 mg/dL (2.5-4.9); TOT PROT 6.4 g/dl (6.4-8.2)
[2021-02-04] MEDS: ACETAMINOPHEN 650 MG/20.3 ML ORAL SOLUTION (CUPS) PO PRN ×2 (12:30→18:24)
[2021-02-04] MEDS: SODIUM CHLORIDE 1,000 ML IV SCH (12:35)
[2021-02-04] MEDS: predniSONE 20 MG TABLET (UD) PO SCH (12:42)
[2021-02-04] MEDS ORDERED: ERTAPENEM SODIUM 1 GM VIAL ONE (12:59)
[2021-02-04] MEDS ORDERED: SODIUM CHLORIDE 50 ML IVPB ONE (12:59)
[2021-02-04] MEDS: ERTAPENEM SODIUM 1 GM in SODIUM CHLORIDE 50 ML IVPB SCH (13:02)
[2021-02-04] MEDS: ONDANSETRON 4 MG/2 ML VIAL IVPUSH PRN ×2 (13:03→18:19)
[2021-02-04] MEDS: ACETAMINOPHEN/CAFFEINE/BUTALBITAL 1 TAB PO PRN ×2 (15:39→19:58)
[2021-02-04] MEDS: PREGABALIN 50 MG CAPSULE PO SCH (21:18)
[2021-02-04] MEDS: MONTELUKAST NA 10 MG TABLET PO SCH (21:18)
[2021-02-04] MEDS: FAMOTIDINE 20 MG TABLET PO SCH (21:18)
[2021-02-04] MEDS: BUDESONIDE/FORMETEROL FUMARATE 160/4.5 mcg INHALER IH SCH (21:27)
[2021-02-05] MEDS: ONDANSETRON 4 MG/2 ML VIAL IVPUSH PRN ×3 (00:27→21:47)
[2021-02-05] MEDS: ACETAMINOPHEN/CAFFEINE/BUTALBITAL 1 TAB PO PRN ×4 (00:27→21:47)
[2021-02-05] MEDS: SODIUM CHLORIDE 1,000 ML IV SCH ×2 (01:55→14:58)
[2021-02-05] MEDS: HEPARIN NA (PORCINE) 5,000 UNITS/ML 1ML VIAL SQ SCH ×3 (06:29→21:46)
[2021-02-05] MEDS: LEVOTHYROXINE NA 25 MCG TABLET (FP) PO SCH (06:30)
[2021-02-05 07:43] LABS: BASO % 0.2 % (0-2.0); EOS % 0.1 % (0-4.5); HEMATOCRIT 32.3 % (32.4-45.2); HEMOGLOBIN 10.7 GM/dL (10.7-15.3); MCH 32.1 pg (25.7-33.7); MCHC 33.2 g/dl (32.0-36.0); MEAN CELL VOLUME 96.8 fl (80-96); MEAN PLT VOLUME 9.4 fl (7.5-11.1); MONO % 10.6 % (3.8-10.2); NEUT % 67.1 % (42.8-82.8); PLATELET COUNT 200 K/MM3 (134-434); RBC 3.34 M/mm3 (3.60-5.2); RDW 14.1 % (11.6-15.6); WHITE BLOOD COUNT 3.9 K/mm3 (4.0-10.0)
[2021-02-05 08:16] LABS: ALBUMIN 3.1 g/dl (3.4-5.0); BLOOD UREA NITROGEN 10.8 mg/dL (7-18); CALCIUM 8.5 mg/dL (8.5-10.1)
[2021-02-05 08:20] LABS: CREATININE 0.6 mg/dL (0.55-1.3); PHOSPHOROUS 3.7 mg/dL (2.5-4.9)
[2021-02-05 08:21] LABS: BILIRUBIN,TOTAL 0.3 mg/dL (0.2-1)
[2021-02-05 08:22] LABS: TOT PROT 5.6 g/dl (6.4-8.2)
[2021-02-05] MEDS ORDERED: SODIUM CHLORIDE 50 ML IVPB ONE (09:35)
[2021-02-05] MEDS ORDERED: ERTAPENEM SODIUM 1 GM VIAL ONE (09:35)
[2021-02-05] MEDS: ERTAPENEM SODIUM 1 GM in SODIUM CHLORIDE 50 ML IVPB SCH (09:38)
[2021-02-05] MEDS: predniSONE 20 MG TABLET (UD) PO SCH (09:42)
[2021-02-05] MEDS: BUDESONIDE/FORMETEROL FUMARATE 160/4.5 mcg INHALER IH SCH ×2 (09:43→21:46)
[2021-02-05] MEDS: FAMOTIDINE 20 MG TABLET PO SCH ×2 (09:43→21:45)
[2021-02-05] MEDS: PREGABALIN 50 MG CAPSULE PO SCH ×2 (09:43→21:46)
[2021-02-05] MEDS: KCL 10 MEQ IVPB 10 MEQ/100 ML INFUS.BAG IVPB SCH ×3 (09:44→15:23)
[2021-02-05] MEDS ORDERED: PT OWN MED DRAWER 7, Y5N ONE (09:53)
[2021-02-05] MEDS: ACETAMINOPHEN 650 MG/20.3 ML ORAL SOLUTION (CUPS) PO PRN (16:03)
[2021-02-05] MEDS: MONTELUKAST NA 10 MG TABLET PO SCH (21:45)
[2021-02-05] MEDS: POTASSIUM CHLORIDE TABS 10 MEQ TABLET.ER (FP) PO SCH (21:46)
[2021-02-06] MEDS: ACETAMINOPHEN/CAFFEINE/BUTALBITAL 1 TAB PO PRN ×2 (01:52→11:46)
[2021-02-06] MEDS: LEVOTHYROXINE NA 25 MCG TABLET (FP) PO SCH (06:10)
[2021-02-06] MEDS: HEPARIN NA (PORCINE) 5,000 UNITS/ML 1ML VIAL SQ SCH ×2 (06:10→15:08)
[2021-02-06 07:35] LABS: BASO % 0.2 % (0-2.0); EOS % 0.6 % (0-4.5); HEMATOCRIT 31.6 % (32.4-45.2); HEMOGLOBIN 10.2 GM/dL (10.7-15.3); LYMPH % 28.3 % (8-40); MCH 31.5 pg (25.7-33.7); MCHC 32.1 g/dl (32.0-36.0); MEAN CELL VOLUME 98.3 fl (80-96); MEAN PLT VOLUME 9.7 fl (7.5-11.1); MONO % 9.4 % (3.8-10.2); NEUT % 61.5 % (42.8-82.8); PLATELET COUNT 197 K/MM3 (134-434); RBC 3.22 M/mm3 (3.60-5.2); RDW 14.8 % (11.6-15.6); WHITE BLOOD COUNT 4.1 K/mm3 (4.0-10.0)
[2021-02-06 07:57] LABS: CALCIUM 8.4 mg/dL (8.5-10.1)
[2021-02-06 07:59] LABS: BLOOD UREA NITROGEN 6.9 mg/dL (7-18); MAGNESIUM 2.1 mg/dL (1.8-2.4)
[2021-02-06 08:01] LABS: CREATININE 0.7 mg/dL (0.55-1.3); PHOSPHOROUS 2.8 mg/dL (2.5-4.9)
[2021-02-06 08:02] LABS: BILIRUBIN,TOTAL 0.3 mg/dL (0.2-1); TOT PROT 5.5 g/dl (6.4-8.2)
[2021-02-06] MEDS ORDERED: POTASSIUM CHLORIDE TABS 20 MEQ TABLET.ER (FP) PO ONE (08:12)
[2021-02-06] MEDS ORDERED: DEXTROSE 5%-WATER - 50 ML IVPB ONE (08:58)
[2021-02-06] MEDS ORDERED: cefTRIAXone SODIUM 1 GM VIAL ONE (08:58)
[2021-02-06] MEDS: FAMOTIDINE 20 MG TABLET PO SCH (09:35)
[2021-02-06] MEDS: predniSONE 20 MG TABLET (UD) PO SCH (09:35)
[2021-02-06] MEDS: POTASSIUM CHLORIDE TABS 10 MEQ TABLET.ER (FP) PO SCH ×2 (09:35→12:49)
[2021-02-06] MEDS: PREGABALIN 50 MG CAPSULE PO SCH (09:35)
[2021-02-06] MEDS: BUDESONIDE/FORMETEROL FUMARATE 160/4.5 mcg INHALER IH SCH (09:38)
[2021-02-06] MEDS ORDERED: CEFTRIAXONE 1 GM in DEXTROSE 5%-WATER - 50 ML IVPB SCH (10:00)
[2021-02-06] MEDS ORDERED: SERTRALINE HCL 50 MG TABLET (FP) PO SCH (10:00)
[2021-02-06] MEDS ORDERED: PANTOPRAZOLE 40 MG TABLET PO SCH (10:00)
[2021-02-06] MEDS: SODIUM CHLORIDE 1,000 ML IV SCH (11:42)
[2021-02-06 14:25] VITALS: BP 116/66; PULSE 80; TEMP 98.9
[2021-02-06 14:51] VITALS: BMI 28.8
== END 2021-02-06 16:15 | disposition home or self-care (01) | DRG 103 ==
LOC: JER 06:34 → JERBED 11:15 → J7W 12:15
PROVIDERS: ADMIT Internal Medicine; ATTEND Internal Medicine
DX: G43.909 Migraine, unspecified, not intractable, without status migrainosus (principal); N39.0 Urinary tract infection, site not specified; I10 Essential (primary) hypertension; I25.10 Atherosclerotic heart disease of native coronary artery without angina pectoris; D50.9 Iron deficiency anemia, unspecified; K76.0 Fatty (change of) liver, not elsewhere classified; E03.9 Hypothyroidism, unspecified; B96.20 Unspecified Escherichia coli [E. coli] as the cause of diseases classified elsewhere
CPT/HCPCS: 36415; 70450-TC; 80053; 81003; 83735; 84100; 85025; 85610; 85651; 85730; 86140; 87086; 87186; 93005; 93010; 97116-GP; 97161-GP; 99285-25; C9803; J1644; U0003; U0005

== ENCOUNTER 2021-11-07 07:44 | Day surgery (SDC) | payer OTHER ==
[2021-11-07] MEDS ORDERED: IRON SUCROSE INJECTION 200 MG in SODIUM CHLORIDE 100 ML IVPB ONE (10:00)
[2021-11-07] MEDS ORDERED: CYANOCOBALAMIN (VITAMIN B-12) 1000 MCG/1 ML VIAL IM ONE (13:00)
[2021-11-07 14:20] VITALS: BP 108/40; PULSE 70; TEMP 98.4
[2021-11-07] MEDS ORDERED: PORTA CATH FLUSH 10 ML IVPUSH ONE (14:20)
== END 2021-11-07 14:20 | disposition home or self-care (01) ==
LOC: JONCNONCHE 07:44
PROVIDERS: ATTEND Internal Medicine Hematology & Oncology
PROC: 3E033GC Introduction of Other Therapeutic Substance into Peripheral Vein, Percutaneous Approach (ICD-10-PCS; principal; 2021-11-07)
DX: D50.9 Iron deficiency anemia, unspecified (principal)
CPT/HCPCS: 96365; J1756

== ENCOUNTER 2021-11-21 06:13 | Day surgery (SDC) | payer OTHER ==
[2021-11-21] MEDS ORDERED: diphenhydrAMINE HCL 25 MG CAPSULE (FP) PO PRN (09:30)
[2021-11-21] MEDS ORDERED: HYDROCORTISONE SOD SUCCINATE 100 MG/2 ML VIAL IVPB PRN (09:31)
[2021-11-21] MEDS ORDERED: CYANOCOBALAMIN (VITAMIN B-12) 1000 MCG/1 ML VIAL IM ONE (10:30)
[2021-11-21] MEDS ORDERED: IRON SUCROSE INJECTION 200 MG in SODIUM CHLORIDE 90 ML IVPB ONE (10:30)
[2021-11-21 18:59] VITALS: TEMP 98.7
[2021-11-21 19:00] VITALS: BP 103/40; PULSE 83
== END 2021-11-21 14:10 | disposition home or self-care (01) ==
LOC: JONCNONCHE 06:13
PROVIDERS: ATTEND Internal Medicine Hematology & Oncology
PROC: 3E033GC Introduction of Other Therapeutic Substance into Peripheral Vein, Percutaneous Approach (ICD-10-PCS; principal; 2021-11-21)
DX: D50.9 Iron deficiency anemia, unspecified (principal)
CPT/HCPCS: 96365; J1756

== ENCOUNTER 2021-11-28 07:31 | Day surgery (SDC) | payer OTHER ==
[2021-11-28] MEDS ORDERED: IRON SUCROSE INJECTION 200 MG in SODIUM CHLORIDE 100 ML IVPB ONE (09:00)
[2021-11-28] MEDS ORDERED: CYANOCOBALAMIN (VITAMIN B-12) 1000 MCG/1 ML VIAL IM ONE (13:00)
[2021-11-28 13:38] VITALS: TEMP 98.5
[2021-11-28 14:26] VITALS: BP 131/59; PULSE 76
== END 2021-11-28 14:00 | disposition home or self-care (01) ==
LOC: JONCNONCHE 07:31
PROVIDERS: ATTEND Internal Medicine Hematology & Oncology
PROC: 3E033GC Introduction of Other Therapeutic Substance into Peripheral Vein, Percutaneous Approach (ICD-10-PCS; principal; 2021-11-28)
DX: D50.9 Iron deficiency anemia, unspecified (principal)
CPT/HCPCS: 96365; J1756

== ENCOUNTER 2021-12-10 07:04 | Day surgery (SDC) | payer OTHER ==
[2021-12-10] MEDS ORDERED: SODIUM CHLORIDE 0.9% IVPB ONE (10:00)
[2021-12-10] MEDS ORDERED: CYANOCOBALAMIN (VITAMIN B-12) 1000 MCG/1 ML VIAL IM ONE (10:00)
[2021-12-10] MEDS ORDERED: IRON SUCROSE IVPB ONE (10:00)
[2021-12-10 17:47] VITALS: BP 116/50; PULSE 76; TEMP 98.6
== END 2021-12-10 16:00 | disposition home or self-care (01) ==
LOC: JONCNONCHE 07:04
PROVIDERS: ATTEND Internal Medicine Hematology & Oncology
PROC: 3E033GC Introduction of Other Therapeutic Substance into Peripheral Vein, Percutaneous Approach (ICD-10-PCS; principal; 2021-12-10)
DX: D50.9 Iron deficiency anemia, unspecified (principal)
CPT/HCPCS: 96365; J1756

== ENCOUNTER 2022-06-12 07:54 | Day surgery (SDC) | payer OTHER ==
[2022-06-12] MEDS ORDERED: IRON SUCROSE INJECTION 200 MG in SODIUM CHLORIDE 100 ML IVPB ONE (10:00)
[2022-06-12] MEDS ORDERED: CYANOCOBALAMIN (VITAMIN B-12) 1000 MCG/1 ML VIAL IM ONE (10:00)
[2022-06-12 16:45] VITALS: TEMP 98.8
[2022-06-12 16:56] VITALS: BP 109/53; PULSE 87; RESP 18
[2022-06-12] MEDS ORDERED: PORTA CATH FLUSH 10 ML IVPUSH PRN (16:56)
== END 2022-06-12 16:30 | disposition home or self-care (01) ==
LOC: JONCCHEMO 07:54
PROVIDERS: ATTEND Internal Medicine Hematology & Oncology
PROC: 3E033GC Introduction of Other Therapeutic Substance into Peripheral Vein, Percutaneous Approach (ICD-10-PCS; principal; 2022-06-12)
DX: D50.9 Iron deficiency anemia, unspecified (principal)
CPT/HCPCS: 96365; J1756

== ENCOUNTER 2022-06-19 14:39 | Day surgery (SDC) | payer OTHER ==
[~2022-06-19 14:39] MED LIST changes: +CYANOCOBALAMIN (VITAMIN B-12) 1000 MCG/1 ML VIAL IM ONE
[2022-06-19] MEDS ORDERED: CYANOCOBALAMIN (VITAMIN B-12) 1000 MCG/1 ML VIAL IM ONE (15:15)
[2022-06-19 16:03] VITALS: BP 131/67; PULSE 81; RESP 18; TEMP 98.3
[2022-06-19] MEDS ORDERED: PORTA CATH FLUSH 10 ML IVPUSH PRN (16:03)
== END 2022-06-19 16:08 | disposition home or self-care (01) ==
LOC: JONCNONCHE 14:39 → J7W 14:40 → JONCNONCHE 16:08
PROVIDERS: ATTEND Internal Medicine Hematology & Oncology
PROC: 3E043GC Introduction of Other Therapeutic Substance into Central Vein, Percutaneous Approach (ICD-10-PCS; principal; 2022-06-19)
DX: D50.9 Iron deficiency anemia, unspecified (principal)
CPT/HCPCS: 96365; J1756

== ENCOUNTER 2022-06-26 15:01 | Inpatient (IN) | payer OTHER ==
[2022-06-26] MEDS ORDERED: SODIUM CHLORIDE 0.9% 500 ML INFUS.BAG IV ONE (16:17)
[2022-06-26] MEDS ORDERED: SUMAtriptan SUCCINATE 50 MG TABLET PO ONE (17:00)
[2022-06-26] MEDS ORDERED: SUMAtriptan SUCCINATE 50 MG TABLET ONE (17:24)
[2022-06-26 17:25] LABS: BASO % 0.7 % (0-2.0); EOS % 3.3 % (0-4.5); HEMATOCRIT 40.4 % (32.4-45.2); HEMOGLOBIN 13.2 GM/dL (10.7-15.3); LYMPH % 26.3 % (8-40); MCHC 32.8 g/dl (32.0-36.0); MEAN CELL VOLUME 91.5 fl (80-96); MEAN PLT VOLUME 8.3 fl (7.5-11.1); MONO % 6.5 % (3.8-10.2); NEUT % 63.2 % (42.8-82.8); PLATELET COUNT 301 10^3/uL (134-434); RBC 4.41 M/mm3 (3.60-5.2); RDW 15.5 % (11.6-15.6); WHITE BLOOD COUNT 8.6 K/mm3 (4.0-10.0)
[2022-06-26 17:44] LABS: EPI CELLS 5 /uL (0-25.1); HYALINE CASTS 1 /uL (0-3.1); PH,URINE 5.5 (5.0-8.0); URINE APPEARANCE CLEAR; URINE BACTERIA >9,000 /uL (0-1359); URINE BILIRUBIN NEGATIVE (NEGATIVE); URINE COLOR YELLOW; URINE GLUCOSE (UA) NEGATIVE (NEGATIVE); URINE KETONE NEGATIVE (NEGATIVE); URINE LEUK ESTERASE 2+ (NEGATIVE); URINE NITRITE POSITIVE (NEGATIVE); URINE PROTEIN NEGATIVE (NEGATIVE); URINE RBC 14 /uL (0-23.9); URINE UROBILINOGEN 0.2 mg/dL (0.2-1.0); URINE WBC 119 /uL (0-25.8)
[2022-06-26 17:50] LABS: ALBUMIN 4.1 g/dl (3.4-5.0); BLOOD UREA NITROGEN 16.7 mg/dL (7-18); CALCIUM 9.2 mg/dL (8.5-10.1); MAGNESIUM 1.8 mg/dL (1.8-2.4)
[2022-06-26 17:54] LABS: BILIRUBIN,TOTAL 0.2 mg/dL (0.2-1); CREATININE 0.9 mg/dL (0.55-1.3); PHOSPHOROUS 3.5 mg/dL (2.5-4.9); TOT PROT 7.3 g/dl (6.4-8.2)
[2022-06-26] MEDS ORDERED: ERTAPENEM SODIUM 1 GM in SODIUM CHLORIDE 50 ML IVPB ONE (18:47)
[2022-06-26] MEDS ORDERED: ACETAMINOPHEN 1000 MG/100 ML BAG IVPB ONE (19:50)
[2022-06-26] MEDS ORDERED: ONDANSETRON 4 MG/2 ML VIAL IVPUSH ONE (19:50)
[2022-06-26] MEDS ORDERED: ONDANSETRON 4 MG/2 ML VIAL ONE (19:56)
[2022-06-26] MEDS ORDERED: ACETAMINOPHEN INJECTION 100 ML IVPB ONE (19:56)
[2022-06-26 22:33] VITALS: BMI 30.2
[2022-06-27] MEDS ORDERED: ACETAMINOPHEN 1000 MG/100 ML BAG IVPB PRN (02:10)
[2022-06-27] MEDS ORDERED: morphine CARPU-JECT 2 MG/1 ML DISP.SYRIN IVPUSH PRN (02:14)
[2022-06-27 06:34] LABS: BASO % 0.4 % (0-2.0); EOS % 7.5 % (0-4.5); HEMATOCRIT 39.1 % (32.4-45.2); HEMOGLOBIN 12.5 GM/dL (10.7-15.3); LYMPH % 17.5 % (8-40); MCH 29.4 pg (25.7-33.7); MCHC 31.9 g/dl (32.0-36.0); MEAN CELL VOLUME 92.1 fl (80-96); MEAN PLT VOLUME 8.1 fl (7.5-11.1); MONO % 7.9 % (3.8-10.2); NEUT % 66.7 % (42.8-82.8); PLATELET COUNT 256 10^3/uL (134-434); RBC 4.24 M/mm3 (3.60-5.2); RDW 15.1 % (11.6-15.6)
[2022-06-27 06:52] LABS: CALCIUM 8.7 mg/dL (8.5-10.1)
[2022-06-27 06:54] LABS: ALBUMIN 3.5 g/dl (3.4-5.0); BLOOD UREA NITROGEN 9.7 mg/dL (7-18); MAGNESIUM 1.7 mg/dL (1.8-2.4)
[2022-06-27 06:56] LABS: CREATININE 0.7 mg/dL (0.55-1.3); PHOSPHOROUS 3.8 mg/dL (2.5-4.9)
[2022-06-27 06:58] LABS: BILIRUBIN,TOTAL 0.3 mg/dL (0.2-1); TOT PROT 6.2 g/dl (6.4-8.2)
[2022-06-27] MEDS: SODIUM CHLORIDE 1,000 ML IV SCH (07:08)
[2022-06-27] MEDS ORDERED: ONDANSETRON 8 MG TABLET (FP) PO PRN (10:21)
[2022-06-27] MEDS ORDERED: SUMAtriptan SUCCINATE 50 MG TABLET PO SCH (10:30)
[2022-06-27] MEDS: ENOXAPARIN NA (PORCINE) 40 MG/0.4 ML DISP.SYRIN SQ SCH (11:05)
[2022-06-27] MEDS: LEVOTHYROXINE NA 25 MCG TABLET (FP) PO SCH (11:53)
[2022-06-27] MEDS ORDERED: ERTAPENEM SODIUM 1 GM VIAL ONE (11:55)
[2022-06-27] MEDS: ERTAPENEM SODIUM 1 GM in SODIUM CHLORIDE 50 ML IVPB SCH (12:08)
[2022-06-27] MEDS ORDERED: SUMAtriptan SUCCINATE 50 MG TABLET ONE (12:09)
[2022-06-27] MEDS: SUMAtriptan SUCCINATE 50 MG TABLET PO PRN (12:12)
[2022-06-27] MEDS ORDERED: MECLIZINE HCL 25 MG TABLET (FP) PO PRN (15:13)
[2022-06-27] MEDS ORDERED: NITROGLYCERIN SUBLINGUAL 1/150 0.4 MG TAB SL PRN (15:13)
[2022-06-27] MEDS ORDERED: ONDANSETRON 8 MG TABLET (FP) PO ONE (16:49)
[2022-06-27] MEDS ORDERED: DICYCLOMINE HCL 10 MG CAPSULE ONE (21:14)
[2022-06-27] MEDS ORDERED: PREGABALIN 25 MG CAPSULE ONE (21:15)
[2022-06-27] MEDS ORDERED: MELATONIN 5 MG TABLETS ONE (21:16)
[2022-06-27] MEDS ORDERED: FAMOTIDINE 20 MG TABLET ONE (21:16)
[2022-06-27] MEDS ORDERED: MONTELUKAST NA 10 MG TABLET ONE (21:16)
[2022-06-27] MEDS: MONTELUKAST NA 10 MG TABLET PO SCH (21:24)
[2022-06-27] MEDS: MELATONIN 1 MG TABLET PO SCH (21:24)
[2022-06-27] MEDS: FAMOTIDINE 20 MG TABLET PO SCH (21:24)
[2022-06-27] MEDS: DICYCLOMINE HCL 20 MG TABLET PO SCH (21:25)
[2022-06-27] MEDS: PREGABALIN 25 MG CAPSULE PO SCH (21:26)
[2022-06-27] MEDS ORDERED: oxyCODONE HCL 5 MG TABLET ONE (23:51)
[2022-06-27] MEDS: oxyCODONE HCL 5 MG TABLET PO PRN (23:51)
[2022-06-28] MEDS: SODIUM CHLORIDE 1,000 ML IV SCH (01:31)
[2022-06-28] MEDS: LEVOTHYROXINE NA 25 MCG TABLET (FP) PO SCH (06:04)
[2022-06-28] MEDS ORDERED: ONDANSETRON 4 MG TABLET PO PRN (06:27)
[2022-06-28] MEDS: ONDANSETRON 4 MG TABLET PO PRN ×2 (06:49→12:12)
[2022-06-28] MEDS: BUDESONIDE/FORMETEROL FUMARATE 160/4.5 mcg INHALER IH SCH ×2 (07:24→15:53)
[2022-06-28 10:34] LABS: BASO % 0.5 % (0-2.0); BLOOD UREA NITROGEN 10.7 mg/dL (7-18); CALCIUM 8.8 mg/dL (8.5-10.1); EOS % 5.5 % (0-4.5); HEMATOCRIT 39.4 % (32.4-45.2); HEMOGLOBIN 12.5 GM/dL (10.7-15.3); LYMPH % 9.2 % (8-40); MCH 29.2 pg (25.7-33.7); MCHC 31.7 g/dl (32.0-36.0); MEAN CELL VOLUME 92.2 fl (80-96); MEAN PLT VOLUME 8.5 fl (7.5-11.1); MONO % 6.1 % (3.8-10.2); NEUT % 78.7 % (42.8-82.8); PLATELET COUNT 258 10^3/uL (134-434); RBC 4.27 M/mm3 (3.60-5.2); RDW 15.4 % (11.6-15.6); WHITE BLOOD COUNT 7.8 K/mm3 (4.0-10.0)
[2022-06-28 10:36] LABS: ALBUMIN 3.4 g/dl (3.4-5.0); MAGNESIUM 1.8 mg/dL (1.8-2.4)
[2022-06-28] MEDS: CHOLECALCIFEROL (VIT D3) 1,000 UNIT (25 MCG) TABLET PO SCH (10:36)
[2022-06-28] MEDS: FAMOTIDINE 20 MG TABLET PO SCH ×2 (10:37→22:17)
[2022-06-28] MEDS: PREGABALIN 25 MG CAPSULE PO SCH ×2 (10:37→22:17)
[2022-06-28] MEDS: PANTOPRAZOLE 40 MG TABLET PO SCH (10:37)
[2022-06-28] MEDS: SERTRALINE HCL 50 MG TABLET (FP) PO SCH (10:37)
[2022-06-28] MEDS: ENOXAPARIN NA (PORCINE) 40 MG/0.4 ML DISP.SYRIN SQ SCH (10:38)
[2022-06-28 10:39] LABS: BILIRUBIN,TOTAL 0.3 mg/dL (0.2-1); CREATININE 0.7 mg/dL (0.55-1.3); PHOSPHOROUS 3.3 mg/dL (2.5-4.9); TOT PROT 6.4 g/dl (6.4-8.2)
[2022-06-28] MEDS: QUINAPRIL HCL 10 MG TABLET PO SCH (10:39)
[2022-06-28] MEDS: SUMAtriptan SUCCINATE 50 MG TABLET PO PRN (10:41)
[2022-06-28] MEDS: DICYCLOMINE HCL 20 MG TABLET PO SCH ×2 (10:43→22:18)
[2022-06-28] MEDS: ERTAPENEM SODIUM 1 GM in SODIUM CHLORIDE 50 ML IVPB SCH (10:43)
[2022-06-28] MEDS: oxyCODONE HCL 5 MG TABLET PO PRN (17:19)
[2022-06-28] MEDS: MELATONIN 1 MG TABLET PO SCH (22:17)
[2022-06-28] MEDS: MONTELUKAST NA 10 MG TABLET PO SCH (22:17)
[2022-06-29] MEDS: BUDESONIDE/FORMETEROL FUMARATE 160/4.5 mcg INHALER IH SCH ×2 (00:44→11:25)
[2022-06-29] MEDS: oxyCODONE HCL 5 MG TABLET PO PRN (05:24)
[2022-06-29] MEDS: LEVOTHYROXINE NA 25 MCG TABLET (FP) PO SCH (06:41)
[2022-06-29] MEDS: ACETAMINOPHEN/CAFFEINE/BUTALBITAL 1 TAB PO PRN ×2 (06:45→15:54)
[2022-06-29] MEDS: FAMOTIDINE 20 MG TABLET PO SCH ×2 (10:11→21:25)
[2022-06-29] MEDS: ERTAPENEM SODIUM 1 GM in SODIUM CHLORIDE 50 ML IVPB SCH (10:12)
[2022-06-29] MEDS: ENOXAPARIN NA (PORCINE) 40 MG/0.4 ML DISP.SYRIN SQ SCH (10:13)
[2022-06-29] MEDS: SERTRALINE HCL 50 MG TABLET (FP) PO SCH (10:13)
[2022-06-29] MEDS: PANTOPRAZOLE 40 MG TABLET PO SCH (10:17)
[2022-06-29] MEDS: CHOLECALCIFEROL (VIT D3) 1,000 UNIT (25 MCG) TABLET PO SCH (10:17)
[2022-06-29] MEDS: PREGABALIN 25 MG CAPSULE PO SCH ×2 (10:17→21:25)
[2022-06-29] MEDS: DICYCLOMINE HCL 20 MG TABLET PO SCH ×2 (10:19→21:25)
[2022-06-29] MEDS: QUINAPRIL HCL 10 MG TABLET PO SCH (11:18)
[2022-06-29] MEDS: ONDANSETRON 4 MG TABLET PO PRN (11:36)
[2022-06-29 12:53] LABS: BASO % 0.6 % (0-2.0); EOS % 4.6 % (0-4.5); HEMATOCRIT 38.7 % (32.4-45.2); HEMOGLOBIN 12.6 GM/dL (10.7-15.3); LYMPH % 17.7 % (8-40); MCH 29.5 pg (25.7-33.7); MCHC 32.5 g/dl (32.0-36.0); MEAN CELL VOLUME 90.8 fl (80-96); MEAN PLT VOLUME 8.7 fl (7.5-11.1); MONO % 5.7 % (3.8-10.2); NEUT % 71.4 % (42.8-82.8); PLATELET COUNT 261 10^3/uL (134-434); RBC 4.26 M/mm3 (3.60-5.2); RDW 15.5 % (11.6-15.6); WHITE BLOOD COUNT 5.6 K/mm3 (4.0-10.0)
[2022-06-29 13:04] LABS: CALCIUM 9.3 mg/dL (8.5-10.1)
[2022-06-29 13:05] LABS: ALBUMIN 3.6 g/dl (3.4-5.0); BLOOD UREA NITROGEN 11.6 mg/dL (7-18); MAGNESIUM 1.7 mg/dL (1.8-2.4)
[2022-06-29 13:07] LABS: PHOSPHOROUS 3.5 mg/dL (2.5-4.9)
[2022-06-29 13:08] LABS: CREATININE 0.9 mg/dL (0.55-1.3)
[2022-06-29 13:09] LABS: BILIRUBIN,TOTAL 0.2 mg/dL (0.2-1); TOT PROT 6.6 g/dl (6.4-8.2)
[2022-06-29] MEDS ORDERED: MAGNESIUM SULF 50% (8.12 MEQ/2 ML-1 GM VIAL) IVPB ONE (15:23)
[2022-06-29] MEDS: [UNRECOGNIZED DRUG - OTHER] PO SCH (15:39)
[2022-06-29] MEDS: VITAMIN E PO SCH (15:39)
[2022-06-29] MEDS: MONTELUKAST NA 10 MG TABLET PO SCH (21:25)
[2022-06-29] MEDS: SUMAtriptan SUCCINATE 50 MG TABLET PO PRN (22:04)
[2022-06-29] MEDS: MELATONIN 1 MG TABLET PO SCH (22:04)
[2022-06-30] MEDS: BUDESONIDE/FORMETEROL FUMARATE 160/4.5 mcg INHALER IH SCH ×3 (00:21→22:00)
[2022-06-30] MEDS: LEVOTHYROXINE NA 25 MCG TABLET (FP) PO SCH (06:01)
[2022-06-30] MEDS: CHOLECALCIFEROL (VIT D3) 1,000 UNIT (25 MCG) TABLET PO SCH (09:39)
[2022-06-30] MEDS: CEFTRIAXONE 1 GM in DEXTROSE 5%-WATER - 50 ML IVPB SCH (09:39)
[2022-06-30] MEDS: FAMOTIDINE 20 MG TABLET PO SCH ×2 (09:40→21:41)
[2022-06-30] MEDS: SERTRALINE HCL 50 MG TABLET (FP) PO SCH (09:40)
[2022-06-30] MEDS: PANTOPRAZOLE 40 MG TABLET PO SCH (09:40)
[2022-06-30] MEDS: ENOXAPARIN NA (PORCINE) 40 MG/0.4 ML DISP.SYRIN SQ SCH (09:40)
[2022-06-30] MEDS: PREGABALIN 25 MG CAPSULE PO SCH ×2 (09:40→21:41)
[2022-06-30] MEDS: QUINAPRIL HCL 10 MG TABLET PO SCH (09:41)
[2022-06-30] MEDS: DICYCLOMINE HCL 20 MG TABLET PO SCH ×2 (09:42→21:41)
[2022-06-30 10:50] LABS: BASO % 0.5 % (0-2.0); EOS % 5.9 % (0-4.5); HEMATOCRIT 36.7 % (32.4-45.2); HEMOGLOBIN 12.2 GM/dL (10.7-15.3); LYMPH % 22.2 % (8-40); MCHC 33.1 g/dl (32.0-36.0); MEAN CELL VOLUME 90.7 fl (80-96); MEAN PLT VOLUME 7.8 fl (7.5-11.1); MONO % 8.4 % (3.8-10.2); PLATELET COUNT 252 10^3/uL (134-434); RBC 4.05 M/mm3 (3.60-5.2); RDW 15.7 % (11.6-15.6); WHITE BLOOD COUNT 4.3 K/mm3 (4.0-10.0)
[2022-06-30 11:14] LABS: ALBUMIN 3.5 g/dl (3.4-5.0); BLOOD UREA NITROGEN 12.1 mg/dL (7-18); CALCIUM 9.3 mg/dL (8.5-10.1); MAGNESIUM 1.9 mg/dL (1.8-2.4)
[2022-06-30 11:17] LABS: CREATININE 0.7 mg/dL (0.55-1.3); PHOSPHOROUS 3.3 mg/dL (2.5-4.9)
[2022-06-30 11:19] LABS: BILIRUBIN,TOTAL 0.2 mg/dL (0.2-1); TOT PROT 6.3 g/dl (6.4-8.2)
[2022-06-30] MEDS: SUMAtriptan SUCCINATE 50 MG TABLET PO PRN (14:31)
[2022-06-30 18:52] VITALS: RESP 18
[2022-06-30] MEDS ORDERED: PORTA CATH FLUSH 10 ML IVPUSH PRN (19:40)
[2022-06-30] MEDS: MELATONIN 1 MG TABLET PO SCH (21:41)
[2022-06-30] MEDS: MONTELUKAST NA 10 MG TABLET PO SCH (21:41)
[2022-06-30] MEDS: oxyCODONE HCL 5 MG TABLET PO PRN (21:42)
[2022-07-01] MEDS: LEVOTHYROXINE NA 25 MCG TABLET (FP) PO SCH (06:16)
[2022-07-01] MEDS: oxyCODONE HCL 5 MG TABLET PO PRN ×2 (06:21→10:56)
[2022-07-01] MEDS ORDERED: POLYETHYLENE GLYCOL (HEALTHYLAX) 3350 17 GM PACKET PO SCH (09:45)
[2022-07-01] MEDS: ENOXAPARIN NA (PORCINE) 40 MG/0.4 ML DISP.SYRIN SQ SCH (10:53)
[2022-07-01] MEDS: SERTRALINE HCL 50 MG TABLET (FP) PO SCH (10:53)
[2022-07-01] MEDS: CHOLECALCIFEROL (VIT D3) 1,000 UNIT (25 MCG) TABLET PO SCH (10:54)
[2022-07-01] MEDS: PREGABALIN 25 MG CAPSULE PO SCH (10:54)
[2022-07-01] MEDS: CEFTRIAXONE 1 GM in DEXTROSE 5%-WATER - 50 ML IVPB SCH (10:55)
[2022-07-01] MEDS: PANTOPRAZOLE 40 MG TABLET PO SCH (10:55)
[2022-07-01] MEDS: FAMOTIDINE 20 MG TABLET PO SCH (10:55)
[2022-07-01] MEDS: QUINAPRIL HCL 10 MG TABLET PO SCH (10:58)
[2022-07-01] MEDS: DICYCLOMINE HCL 20 MG TABLET PO SCH (10:58)
[2022-07-01] MEDS: BUDESONIDE/FORMETEROL FUMARATE 160/4.5 mcg INHALER IH SCH (10:59)
[2022-07-01 12:03] LABS: BASO % 0.5 % (0-2.0); EOS % 6.6 % (0-4.5); HEMATOCRIT 36.8 % (32.4-45.2); LYMPH % 19.1 % (8-40); MCH 29.5 pg (25.7-33.7); MCHC 32.5 g/dl (32.0-36.0); MEAN CELL VOLUME 90.7 fl (80-96); MEAN PLT VOLUME 8.5 fl (7.5-11.1); MONO % 7.5 % (3.8-10.2); NEUT % 66.3 % (42.8-82.8); PLATELET COUNT 243 10^3/uL (134-434); RBC 4.05 M/mm3 (3.60-5.2); RDW 15.6 % (11.6-15.6); WHITE BLOOD COUNT 5.2 K/mm3 (4.0-10.0)
[2022-07-01 12:24] LABS: CALCIUM 8.7 mg/dL (8.5-10.1)
[2022-07-01 12:25] LABS: BLOOD UREA NITROGEN 13.2 mg/dL (7-18); MAGNESIUM 1.8 mg/dL (1.8-2.4)
[2022-07-01 12:28] LABS: CREATININE 0.6 mg/dL (0.55-1.3)
[2022-07-01] MEDS ORDERED: LACTOBACILLUS ACIDOPHILUS 1 TABLET PO SCH (12:45)
[2022-07-01] MEDS: SUMAtriptan SUCCINATE 50 MG TABLET PO PRN (14:51)
[2022-07-01 16:47] VITALS: BP 159/58; PULSE 93; TEMP 98.3
[2022-07-01] MEDS ORDERED: DOCUSATE SODIUM 100 MG CAPSULE (FP) PO SCH (22:00)
== END 2022-07-01 17:47 | disposition home or self-care (01) | DRG 690 ==
LOC: JER 15:01 → JERBED 18:57 → J5S 06-28 04:26
PROVIDERS: ADMIT Internal Medicine; ATTEND Internal Medicine
DX: N39.0 Urinary tract infection, site not specified (principal); R19.7 Diarrhea, unspecified; I10 Essential (primary) hypertension; I25.10 Atherosclerotic heart disease of native coronary artery without angina pectoris; E11.9 Type 2 diabetes mellitus without complications; E03.9 Hypothyroidism, unspecified; G43.909 Migraine, unspecified, not intractable, without status migrainosus; G89.29 Other chronic pain; B96.20 Unspecified Escherichia coli [E. coli] as the cause of diseases classified elsewhere; D50.9 Iron deficiency anemia, unspecified; K21.9 Gastro-esophageal reflux disease without esophagitis
CPT/HCPCS: 0241U-QW; 36415; 74177-TC; 80048; 80053; 81003; 83735; 84100; 85025; 87040; 87086; 87186; 87324; 87449; 93005; 93010; 97116-GP; 97162-GP; 99285-25; Q9967

== ENCOUNTER 2022-07-10 14:13 | Day surgery (SDC) | payer OTHER ==
[~2022-07-10 14:13] MED LIST changes: -CYANOCOBALAMIN (VITAMIN B-12) 1000 MCG/1 ML VIAL IM ONE
[2022-07-10] MEDS ORDERED: CYANOCOBALAMIN (VITAMIN B-12) 1000 MCG/1 ML VIAL IM ONE (15:15)
[2022-07-10 16:40] VITALS: BP 120/84; PULSE 80; RESP 20; TEMP 98.6
[2022-07-10] MEDS ORDERED: PORTA CATH FLUSH 10 ML IVPUSH PRN (16:40)
== END 2022-07-10 15:50 | disposition home or self-care (01) ==
LOC: JONCNONCHE 14:13
PROVIDERS: ATTEND Internal Medicine Hematology & Oncology
PROC: 3E033GC Introduction of Other Therapeutic Substance into Peripheral Vein, Percutaneous Approach (ICD-10-PCS; principal; 2022-07-10)
DX: D50.9 Iron deficiency anemia, unspecified (principal)
CPT/HCPCS: 96365; J1756

== ENCOUNTER 2022-07-17 14:04 | Day surgery (SDC) | payer OTHER ==
[2022-07-17] MEDS ORDERED: CYANOCOBALAMIN (VITAMIN B-12) 1000 MCG/1 ML VIAL IM ONE (15:00)
[2022-07-17] MEDS ORDERED: IRON SUCROSE INJECTION 200 MG in SODIUM CHLORIDE 100 ML IVPB ONE (15:00)
[2022-07-17 17:35] VITALS: RESP 18; TEMP 99
[2022-07-17 17:40] VITALS: BP 90/40; PULSE 90
[2022-07-17] MEDS ORDERED: PORTA CATH FLUSH 10 ML IVPUSH PRN (17:40)
== END 2022-07-17 15:45 | disposition home or self-care (01) ==
LOC: JONCNONCHE 14:04
PROVIDERS: ATTEND Internal Medicine Hematology & Oncology
PROC: 3E033GC Introduction of Other Therapeutic Substance into Peripheral Vein, Percutaneous Approach (ICD-10-PCS; principal; 2022-07-17)
DX: D50.9 Iron deficiency anemia, unspecified (principal)
CPT/HCPCS: 96365; J1756

== ENCOUNTER 2022-07-24 13:45 | Day surgery (SDC) | payer OTHER ==
[2022-07-24] MEDS ORDERED: CYANOCOBALAMIN (VITAMIN B-12) 1000 MCG/1 ML VIAL IM ONE (14:15)
[2022-07-24 15:27] VITALS: BP 126/52; PULSE 98; RESP 20; TEMP 98.6
== END 2022-07-24 15:30 | disposition home or self-care (01) ==
LOC: JONCNONCHE 13:45
PROVIDERS: ATTEND Internal Medicine Hematology & Oncology
PROC: 3E033GC Introduction of Other Therapeutic Substance into Peripheral Vein, Percutaneous Approach (ICD-10-PCS; principal; 2022-07-24)
DX: D50.9 Iron deficiency anemia, unspecified (principal)
CPT/HCPCS: 96365; J1756

== ENCOUNTER 2023-07-07 18:17 | Observation (INO) | payer OTHER ==
[2023-07-07] MEDS ORDERED: ACETAMINOPHEN 1000 MG/100 ML BAG IVPB ONE (19:51)
[2023-07-07] MEDS ORDERED: FAMOTIDINE 20 MG/50 ML IVPB 20 MG/50 ML MG IVPB ONE ×2 (19:53→20:47)
[2023-07-07] MEDS ORDERED: ONDANSETRON 4 MG/2 ML VIAL IVPUSH ONE (19:53)
[2023-07-07] MEDS ORDERED: ONDANSETRON 4 MG/2 ML VIAL ONE (20:46)
[2023-07-07] MEDS ORDERED: ACETAMINOPHEN INJECTION 100 ML IVPB ONE (20:46)
[2023-07-07 21:14] LABS: BASO % 0.3 % (0-2.0); HEMATOCRIT 41.5 % (32.4-45.2); HEMOGLOBIN 13.9 GM/dL (10.7-15.3); LYMPH % 9.3 % (8-40); MCH 30.4 pg (25.7-33.7); MCHC 33.5 g/dl (32.0-36.0); MEAN CELL VOLUME 90.7 fl (80-96); MEAN PLT VOLUME 8.8 fl (7.5-11.1); MONO % 2.7 % (3.8-10.2); NEUT % 87.7 % (42.8-82.8); PLATELET COUNT 325 10^3/uL (134-434); RBC 4.57 M/mm3 (3.60-5.2); WHITE BLOOD COUNT 8.6 K/mm3 (4.0-10.0)
[2023-07-07 21:19] LABS: ALBUMIN 3.8 g/dl (3.4-5.0); CALCIUM 9.4 mg/dL (8.5-10.1); MAGNESIUM 1.8 mg/dL (1.8-2.4)
[2023-07-07 21:20] LABS: BLOOD UREA NITROGEN 9.2 mg/dL (7-18)
[2023-07-07 21:22] LABS: CREATININE 0.8 mg/dL (0.55-1.3)
[2023-07-07 21:24] LABS: BILIRUBIN,TOTAL 0.5 mg/dL (0.2-1); TOT PROT 7.4 g/dl (6.4-8.2)
[2023-07-07 21:30] LABS: LACTIC ACID 2.1 mmol/L (0.4-2.0)
[2023-07-07] MEDS ORDERED: morphine CARPU-JECT 2 MG/1 ML DISP.SYRIN IVPUSH ONE (22:42)
[2023-07-07] MEDS ORDERED: SODIUM CHLORIDE 0.9% 500 ML INFUS.BAG IV ONE (22:43)
[2023-07-08] MEDS ORDERED: morphine CARPU-JECT 2 MG/1 ML DISP.SYRIN IVPUSH ONE (00:26)
[2023-07-08] MEDS ORDERED: ONDANSETRON 4 MG/2 ML VIAL IVPUSH ONE (01:30)
[2023-07-08] MEDS ORDERED: ONDANSETRON 4 MG/2 ML VIAL ONE (01:32)
[2023-07-08 03:18] LABS: URINE APPEARANCE CLEAR; URINE BILIRUBIN NEGATIVE (NEGATIVE); URINE COLOR YELLOW; URINE GLUCOSE (UA) NEGATIVE (NEGATIVE); URINE KETONE NEGATIVE (NEGATIVE); URINE LEUK ESTERASE NEGATIVE (NEGATIVE); URINE NITRITE NEGATIVE (NEGATIVE); URINE PROTEIN NEGATIVE (NEGATIVE); URINE UROBILINOGEN 0.2 mg/dL (0.2-1.0)
[2023-07-08 05:19] LABS: POTASSIUM 3.9 mmol/L (3.5-5.1)
[2023-07-08 05:21] LABS: CALCIUM 8.8 mg/dL (8.5-10.1)
[2023-07-08 05:22] LABS: ALBUMIN 3.7 g/dl (3.4-5.0); BLOOD UREA NITROGEN 10.6 mg/dL (7-18); MAGNESIUM 1.8 mg/dL (1.8-2.4)
[2023-07-08 05:25] LABS: CREATININE 0.9 mg/dL (0.55-1.3); PHOSPHOROUS 2.7 mg/dL (2.5-4.9)
[2023-07-08 05:26] LABS: TOT PROT 6.8 g/dl (6.4-8.2)
[2023-07-08 05:27] LABS: BILIRUBIN,TOTAL 0.6 mg/dL (0.2-1)
[2023-07-08 06:04] LABS: LACTIC ACID 2.7 mmol/L (0.4-2.0)
[2023-07-08] MEDS: SODIUM CHLORIDE 1,000 ML IV SCH (06:49)
[2023-07-08] MEDS ORDERED: PANTOPRAZOLE 40 MG TABLET PO SCH (07:00)
[2023-07-08 07:21] LABS: HEMATOCRIT 38.2 % (32.4-45.2); HEMOGLOBIN 12.5 GM/dL (10.7-15.3); MCH 30.3 pg (25.7-33.7); MCHC 32.6 g/dl (32.0-36.0); MEAN CELL VOLUME 92.9 fl (80-96); MEAN PLT VOLUME 8.9 fl (7.5-11.1); PLATELET COUNT 313 10^3/uL (134-434); RBC 4.11 M/mm3 (3.60-5.2); RDW 14.7 % (11.6-15.6); WHITE BLOOD COUNT 13.7 K/mm3 (4.0-10.0)
[2023-07-08] MEDS: LEVOTHYROXINE NA 25 MCG TABLET (FP) PO SCH (08:33)
[2023-07-08] MEDS ORDERED: LEVOTHYROXINE NA 25 MCG TABLET (FP) ONE (08:33)
[2023-07-08] MEDS ORDERED: ONDANSETRON 8 MG TABLET (FP) PO ONE (09:29)
[2023-07-08] MEDS ORDERED: DICYCLOMINE HCL 20 MG TABLET PO SCH (10:00)
[2023-07-08] MEDS ORDERED: buPROPion HCL 100 MG TABLET PO SCH (10:00)
[2023-07-08] MEDS ORDERED: ONDANSETRON 8 MG TABLET (FP) PO SCH (10:00)
[2023-07-08] MEDS ORDERED: PANTOPRAZOLE SODIUM 40 MG VIAL ONE (10:29)
[2023-07-08] MEDS: FUROSEMIDE 20 MG TABLET (FP) PO SCH (10:42)
[2023-07-08] MEDS: PANTOPRAZOLE SODIUM 40 MG VIAL IVPUSH SCH (10:43)
[2023-07-08] MEDS: SERTRALINE HCL 50 MG TABLET (FP) PO SCH (10:43)
[2023-07-08] MEDS: ENOXAPARIN NA (PORCINE) 40 MG/0.4 ML DISP.SYRIN SQ SCH (10:43)
[2023-07-08] MEDS: FAMOTIDINE 40 MG TABLET PO SCH (10:43)
[2023-07-08] MEDS: BUDESONIDE/FORMETEROL FUMARATE 160/4.5 mcg INHALER IH SCH ×2 (15:25→22:52)
[2023-07-08] MEDS ORDERED: ONDANSETRON 4 MG/2 ML VIAL IVPUSH PRN (18:07)
[2023-07-08] MEDS: ACETAMINOPHEN 1000 MG/100 ML BAG IVPB PRN (19:59)
[2023-07-08 20:34] VITALS: BMI 30.6
[2023-07-08] MEDS: MELATONIN 1 MG TABLET PO SCH (22:30)
[2023-07-08] MEDS: MONTELUKAST NA 10 MG TABLET PO SCH (22:30)
[2023-07-08] MEDS: PREGABALIN 25 MG CAPSULE PO SCH (22:30)
[2023-07-09] MEDS: SODIUM CHLORIDE 1,000 ML IV SCH (05:59)
[2023-07-09] MEDS: LEVOTHYROXINE NA 25 MCG TABLET (FP) PO SCH (06:00)
[2023-07-09 09:11] LABS: BASO % 0.3 % (0-2.0); EOS % 0.8 % (0-4.5); HEMATOCRIT 36.1 % (32.4-45.2); HEMOGLOBIN 11.7 GM/dL (10.7-15.3); LYMPH % 11.7 % (8-40); MCH 29.9 pg (25.7-33.7); MCHC 32.4 g/dl (32.0-36.0); MEAN CELL VOLUME 92.5 fl (80-96); MEAN PLT VOLUME 8.7 fl (7.5-11.1); MONO % 5.2 % (3.8-10.2); PLATELET COUNT 267 10^3/uL (134-434); RDW 14.5 % (11.6-15.6); WHITE BLOOD COUNT 9.5 K/mm3 (4.0-10.0)
[2023-07-09 09:48] LABS: POTASSIUM 3.1 mmol/L (3.5-5.1)
[2023-07-09] MEDS: PANTOPRAZOLE SODIUM 40 MG VIAL IVPUSH SCH (10:00)
[2023-07-09] MEDS: ISOSORBIDE MONONITRATE 30 MG TAB.SR.24H (FP) PO SCH (10:03)
[2023-07-09] MEDS: PREGABALIN 25 MG CAPSULE PO SCH ×2 (10:03→22:17)
[2023-07-09] MEDS: SERTRALINE HCL 50 MG TABLET (FP) PO SCH (10:03)
[2023-07-09] MEDS: ENOXAPARIN NA (PORCINE) 40 MG/0.4 ML DISP.SYRIN SQ SCH (10:03)
[2023-07-09] MEDS: FUROSEMIDE 20 MG TABLET (FP) PO SCH (10:03)
[2023-07-09] MEDS: buPROPion HCL 100 MG TABLET PO SCH ×2 (10:04→17:55)
[2023-07-09] MEDS: FAMOTIDINE 40 MG TABLET PO SCH (10:05)
[2023-07-09 10:06] LABS: BLOOD UREA NITROGEN 12.7 mg/dL (7-18); CALCIUM 8.4 mg/dL (8.5-10.1); MAGNESIUM 1.6 mg/dL (1.8-2.4)
[2023-07-09] MEDS: BUDESONIDE/FORMETEROL FUMARATE 160/4.5 mcg INHALER IH SCH ×2 (10:06→22:19)
[2023-07-09 10:09] LABS: CREATININE 0.8 mg/dL (0.55-1.3); PHOSPHOROUS 3.6 mg/dL (2.5-4.9)
[2023-07-09] MEDS: NYSTATIN POWDER 100,000 UNITS/GM - 15 GM TOPICAL POWDER TP SCH (11:10)
[2023-07-09] MEDS ORDERED: POTASSIUM CHLORIDE ORAL LIQUID 20 MEQ/15 ML PO ONE (11:30)
[2023-07-09] MEDS ORDERED: dilTIAZem HCL 60 MG TABLET PO ONE ×2 (14:00→22:00)
[2023-07-09] MEDS: ACETAMINOPHEN 1000 MG/100 ML BAG IVPB PRN (16:00)
[2023-07-09] MEDS: SUMAtriptan SUCCINATE 50 MG TABLET PO PRN (17:55)
[2023-07-09] MEDS ORDERED: ACETAMINOPHEN 1000 MG/100 ML BAG IVPB PRN ×2 (18:36→18:37)
[2023-07-09] MEDS: MELATONIN 1 MG TABLET PO SCH (22:17)
[2023-07-09] MEDS: MONTELUKAST NA 10 MG TABLET PO SCH (22:17)
[2023-07-10] MEDS: SUMAtriptan SUCCINATE 50 MG TABLET PO PRN (04:58)
[2023-07-10] MEDS: SODIUM CHLORIDE 1,000 ML IV SCH (05:04)
[2023-07-10] MEDS: LEVOTHYROXINE NA 25 MCG TABLET (FP) PO SCH (06:49)
[2023-07-10] MEDS: SERTRALINE HCL 50 MG TABLET (FP) PO SCH (09:42)
[2023-07-10] MEDS: PREGABALIN 25 MG CAPSULE PO SCH ×2 (09:42→22:18)
[2023-07-10] MEDS: ISOSORBIDE MONONITRATE 30 MG TAB.SR.24H (FP) PO SCH (09:42)
[2023-07-10] MEDS: ENOXAPARIN NA (PORCINE) 40 MG/0.4 ML DISP.SYRIN SQ SCH (09:43)
[2023-07-10] MEDS: FUROSEMIDE 20 MG TABLET (FP) PO SCH (09:43)
[2023-07-10] MEDS: PANTOPRAZOLE SODIUM 40 MG VIAL IVPUSH SCH (09:43)
[2023-07-10] MEDS: buPROPion HCL 100 MG TABLET PO SCH ×2 (09:45→17:18)
[2023-07-10] MEDS: FAMOTIDINE 40 MG TABLET PO SCH (09:45)
[2023-07-10] MEDS: BUDESONIDE/FORMETEROL FUMARATE 160/4.5 mcg INHALER IH SCH ×2 (09:47→22:20)
[2023-07-10] MEDS: NYSTATIN POWDER 100,000 UNITS/GM - 15 GM TOPICAL POWDER TP SCH (09:48)
[2023-07-10] MEDS: MELATONIN 1 MG TABLET PO SCH (22:18)
[2023-07-10] MEDS: MONTELUKAST NA 10 MG TABLET PO SCH (22:18)
[2023-07-10] MEDS: POLYETHYLENE GLYCOL (HEALTHYLAX) 3350 17 GM PACKET PO SCH (22:19)
[2023-07-11] MEDS: LEVOTHYROXINE NA 25 MCG TABLET (FP) PO SCH (06:25)
[2023-07-11] MEDS: PANTOPRAZOLE SODIUM 40 MG VIAL IVPUSH SCH (09:45)
[2023-07-11] MEDS: SERTRALINE HCL 50 MG TABLET (FP) PO SCH (09:46)
[2023-07-11] MEDS: FAMOTIDINE 40 MG TABLET PO SCH (09:47)
[2023-07-11] MEDS: ISOSORBIDE MONONITRATE 30 MG TAB.SR.24H (FP) PO SCH (09:47)
[2023-07-11] MEDS: PREGABALIN 25 MG CAPSULE PO SCH ×2 (09:47→21:56)
[2023-07-11] MEDS: FUROSEMIDE 20 MG TABLET (FP) PO SCH (09:47)
[2023-07-11] MEDS: buPROPion HCL 100 MG TABLET PO SCH ×2 (09:47→17:27)
[2023-07-11] MEDS: ENOXAPARIN NA (PORCINE) 40 MG/0.4 ML DISP.SYRIN SQ SCH (09:51)
[2023-07-11] MEDS: SODIUM CHLORIDE 1,000 ML IV SCH (09:52)
[2023-07-11] MEDS: POLYETHYLENE GLYCOL (HEALTHYLAX) 3350 17 GM PACKET PO SCH ×2 (09:52→21:56)
[2023-07-11] MEDS: BUDESONIDE/FORMETEROL FUMARATE 160/4.5 mcg INHALER IH SCH ×2 (10:01→21:57)
[2023-07-11] MEDS: NYSTATIN POWDER 100,000 UNITS/GM - 15 GM TOPICAL POWDER TP SCH (10:01)
[2023-07-11 10:09] LABS: BASO % 0.5 % (0-2.0); EOS % 6.1 % (0-4.5); HEMATOCRIT 38.9 % (32.4-45.2); HEMOGLOBIN 12.7 GM/dL (10.7-15.3); LYMPH % 23.1 % (8-40); MCH 30.1 pg (25.7-33.7); MCHC 32.6 g/dl (32.0-36.0); MEAN CELL VOLUME 92.3 fl (80-96); MEAN PLT VOLUME 8.8 fl (7.5-11.1); MONO % 9.1 % (3.8-10.2); NEUT % 61.2 % (42.8-82.8); PLATELET COUNT 269 10^3/uL (134-434); RBC 4.21 M/mm3 (3.60-5.2); RDW 14.6 % (11.6-15.6); WHITE BLOOD COUNT 5.5 K/mm3 (4.0-10.0)
[2023-07-11 10:24] LABS: POTASSIUM 3.1 mmol/L (3.5-5.1)
[2023-07-11 10:26] LABS: CALCIUM 8.9 mg/dL (8.5-10.1)
[2023-07-11 10:27] LABS: ALBUMIN 3.6 g/dl (3.4-5.0); BLOOD UREA NITROGEN 5.8 mg/dL (7-18); MAGNESIUM 1.5 mg/dL (1.8-2.4)
[2023-07-11 10:30] LABS: CREATININE 0.9 mg/dL (0.55-1.3)
[2023-07-11 10:32] LABS: BILIRUBIN,TOTAL 0.5 mg/dL (0.2-1); TOT PROT 6.6 g/dl (6.4-8.2)
[2023-07-11] MEDS ORDERED: POTASSIUM CHLORIDE ORAL LIQUID 20 MEQ/15 ML PO ONE (11:45)
[2023-07-11] MEDS ORDERED: MAGNESIUM SULF 50% (8.12 MEQ/2 ML-1 GM VIAL) IVPB ONE (11:45)
[2023-07-11] MEDS: SUMAtriptan SUCCINATE 50 MG TABLET PO PRN (15:14)
[2023-07-11] MEDS: MONTELUKAST NA 10 MG TABLET PO SCH (21:56)
[2023-07-11] MEDS: MELATONIN 1 MG TABLET PO SCH (21:56)
[2023-07-11] MEDS: POTASSIUM CHLORIDE TABS 20 MEQ TABLET.ER (FP) PO SCH (21:56)
[2023-07-12] MEDS: SODIUM CHLORIDE 1,000 ML IV SCH ×2 (06:36→11:40)
[2023-07-12] MEDS: LEVOTHYROXINE NA 25 MCG TABLET (FP) PO SCH (06:37)
[2023-07-12 08:46] LABS: BASO % 0.4 % (0-2.0); EOS % 6.6 % (0-4.5); HEMATOCRIT 34.9 % (32.4-45.2); HEMOGLOBIN 11.9 GM/dL (10.7-15.3); LYMPH % 19.5 % (8-40); MCH 30.9 pg (25.7-33.7); MCHC 34.1 g/dl (32.0-36.0); MEAN CELL VOLUME 90.6 fl (80-96); MEAN PLT VOLUME 8.6 fl (7.5-11.1); MONO % 8.3 % (3.8-10.2); NEUT % 65.2 % (42.8-82.8); PLATELET COUNT 248 10^3/uL (134-434); RBC 3.85 M/mm3 (3.60-5.2); RDW 14.4 % (11.6-15.6)
[2023-07-12 09:22] LABS: POTASSIUM 3.6 mmol/L (3.5-5.1)
[2023-07-12 09:27] LABS: ALBUMIN 3.3 g/dl (3.4-5.0); BLOOD UREA NITROGEN 7.5 mg/dL (7-18); CALCIUM 8.4 mg/dL (8.5-10.1)
[2023-07-12 09:30] LABS: CREATININE 0.7 mg/dL (0.55-1.3)
[2023-07-12 09:32] LABS: BILIRUBIN,TOTAL 0.4 mg/dL (0.2-1)
[2023-07-12] MEDS: ISOSORBIDE MONONITRATE 30 MG TAB.SR.24H (FP) PO SCH (09:41)
[2023-07-12] MEDS: POTASSIUM CHLORIDE TABS 20 MEQ TABLET.ER (FP) PO SCH ×2 (09:41→22:46)
[2023-07-12] MEDS: PREGABALIN 25 MG CAPSULE PO SCH ×2 (09:41→22:46)
[2023-07-12] MEDS: FAMOTIDINE 40 MG TABLET PO SCH (09:41)
[2023-07-12] MEDS: buPROPion HCL 100 MG TABLET PO SCH ×2 (09:42→17:24)
[2023-07-12] MEDS: SERTRALINE HCL 50 MG TABLET (FP) PO SCH (09:42)
[2023-07-12] MEDS: FUROSEMIDE 20 MG TABLET (FP) PO SCH (09:42)
[2023-07-12] MEDS: ENOXAPARIN NA (PORCINE) 40 MG/0.4 ML DISP.SYRIN SQ SCH (09:43)
[2023-07-12] MEDS: PANTOPRAZOLE SODIUM 40 MG VIAL IVPUSH SCH (09:43)
[2023-07-12] MEDS: POLYETHYLENE GLYCOL (HEALTHYLAX) 3350 17 GM PACKET PO SCH ×2 (09:43→22:47)
[2023-07-12] MEDS: NYSTATIN POWDER 100,000 UNITS/GM - 15 GM TOPICAL POWDER TP SCH (09:44)
[2023-07-12] MEDS: BUDESONIDE/FORMETEROL FUMARATE 160/4.5 mcg INHALER IH SCH ×2 (09:45→22:46)
[2023-07-12] MEDS ORDERED: PORTA CATH FLUSH 10 ML IVPUSH PRN (11:47)
[2023-07-12] MEDS: SUMAtriptan SUCCINATE 50 MG TABLET PO PRN (17:24)
[2023-07-12] MEDS: MELATONIN 1 MG TABLET PO SCH (22:46)
[2023-07-12] MEDS: MONTELUKAST NA 10 MG TABLET PO SCH (22:46)
[2023-07-13] MEDS: LEVOTHYROXINE NA 25 MCG TABLET (FP) PO SCH (06:34)
[2023-07-13 09:52] LABS: BASO % 0.4 % (0-2.0); EOS % 7.2 % (0-4.5); HEMATOCRIT 37.7 % (32.4-45.2); LYMPH % 19.1 % (8-40); MCH 29.7 pg (25.7-33.7); MEAN CELL VOLUME 93.1 fl (80-96); MEAN PLT VOLUME 8.4 fl (7.5-11.1); MONO % 7.3 % (3.8-10.2); PLATELET COUNT 264 10^3/uL (134-434); RBC 4.05 M/mm3 (3.60-5.2); RDW 14.9 % (11.6-15.6); WHITE BLOOD COUNT 6.5 K/mm3 (4.0-10.0)
[2023-07-13] MEDS: FUROSEMIDE 20 MG TABLET (FP) PO SCH (09:58)
[2023-07-13] MEDS: POTASSIUM CHLORIDE TABS 20 MEQ TABLET.ER (FP) PO SCH (09:58)
[2023-07-13] MEDS: POLYETHYLENE GLYCOL (HEALTHYLAX) 3350 17 GM PACKET PO SCH (09:59)
[2023-07-13] MEDS: FAMOTIDINE 40 MG TABLET PO SCH (09:59)
[2023-07-13] MEDS: PANTOPRAZOLE SODIUM 40 MG VIAL IVPUSH SCH (09:59)
[2023-07-13] MEDS: SERTRALINE HCL 50 MG TABLET (FP) PO SCH (09:59)
[2023-07-13] MEDS: PREGABALIN 25 MG CAPSULE PO SCH (09:59)
[2023-07-13] MEDS: ISOSORBIDE MONONITRATE 30 MG TAB.SR.24H (FP) PO SCH (09:59)
[2023-07-13] MEDS: SUMAtriptan SUCCINATE 50 MG TABLET PO PRN (10:00)
[2023-07-13] MEDS: buPROPion HCL 100 MG TABLET PO SCH (10:01)
[2023-07-13] MEDS: ENOXAPARIN NA (PORCINE) 40 MG/0.4 ML DISP.SYRIN SQ SCH (10:01)
[2023-07-13] MEDS: NYSTATIN POWDER 100,000 UNITS/GM - 15 GM TOPICAL POWDER TP SCH (10:02)
[2023-07-13] MEDS: BUDESONIDE/FORMETEROL FUMARATE 160/4.5 mcg INHALER IH SCH (10:02)
[2023-07-13 10:14] LABS: POTASSIUM 3.7 mmol/L (3.5-5.1)
[2023-07-13] MEDS: SODIUM CHLORIDE 1,000 ML IV SCH (10:14)
[2023-07-13 10:15] LABS: ALBUMIN 3.4 g/dl (3.4-5.0); BLOOD UREA NITROGEN 8.8 mg/dL (7-18); CALCIUM 8.6 mg/dL (8.5-10.1); MAGNESIUM 1.7 mg/dL (1.8-2.4)
[2023-07-13 10:18] LABS: CREATININE 0.7 mg/dL (0.55-1.3)
[2023-07-13 10:20] LABS: BILIRUBIN,TOTAL 0.3 mg/dL (0.2-1); TOT PROT 6.3 g/dl (6.4-8.2)
[2023-07-13] MEDS ORDERED: MAGNESIUM OXIDE 400 MG TABLET (FP) PO ONE (11:13)
[2023-07-13 14:01] VITALS: BP 121/53; PULSE 79; RESP 20; TEMP 97.7
== END 2023-07-13 18:33 | disposition home or self-care (01) ==
LOC: JER 18:17 → JERBED 23:39 → J7W 07-08 19:25
PROVIDERS: ADMIT Internal Medicine; ATTEND Nurse Practitioner Acute Care
PROC: 3E033NZ Introduction of Analgesics, Hypnotics, Sedatives into Peripheral Vein, Percutaneous Approach (ICD-10-PCS; principal; 2023-07-07)
PROC: 3E023GC Introduction of Other Therapeutic Substance into Muscle, Percutaneous Approach (ICD-10-PCS; 2023-07-07)
PROC: 3E033GC Introduction of Other Therapeutic Substance into Peripheral Vein, Percutaneous Approach (ICD-10-PCS; 2023-07-07)
PROC: 3E0233Z Introduction of Anti-inflammatory into Muscle, Percutaneous Approach (ICD-10-PCS; 2023-07-07)
DX: R10.9 Unspecified abdominal pain (principal); K52.9 Noninfective gastroenteritis and colitis, unspecified; I25.111 Atherosclerotic heart disease of native coronary artery with angina pectoris with documented spasm; R79.9 Abnormal finding of blood chemistry, unspecified; I11.9 Hypertensive heart disease without heart failure; E03.9 Hypothyroidism, unspecified; F32.A Depression, unspecified; K56.7 Ileus, unspecified; J45.909 Unspecified asthma, uncomplicated; Z29.8 Encounter for other specified prophylactic measures; G43.909 Migraine, unspecified, not intractable, without status migrainosus; Z87.440 Personal history of urinary (tract) infections; K21.9 Gastro-esophageal reflux disease without esophagitis; K57.90 Diverticulosis of intestine, part unspecified, without perforation or abscess without bleeding; Z88.8 Allergy status to other drugs, medicaments and biological substances; Z91.011 Allergy to milk products; Z91.018 Allergy to other foods
CPT/HCPCS: 0241U-QW; 36415; 71045-TC-FY; 74177-TC; 80048; 80053; 81003; 82272; 83605; 83690; 83735; 84100; 84484; 85025; 85027; 86850; 86900; 86901; 87040; 87086; 87209; 93005; 93010; 96365; 96372; 96375; 96376; 97116-GP; 97162-GP; 99285-25; G0378; Q9967

== ENCOUNTER 2023-10-22 02:50 | Observation (INO) | payer OTHER ==
[2023-10-22 03:07] VITALS: BMI 30.9
[2023-10-22] MEDS ORDERED: ACETAMINOPHEN 1000 MG/100 ML BAG IVPB ONE (03:33)
[2023-10-22] MEDS ORDERED: ONDANSETRON 4 MG/2 ML VIAL IVPUSH ONE ×2 (03:33→05:44)
[2023-10-22] MEDS ORDERED: METOCLOPRAMIDE HCL INJECTION 10 MG/2 ML VIAL IVPUSH ONE (03:48)
[2023-10-22] MEDS ORDERED: METOCLOPRAMIDE HCL INJECTION 10 MG/2 ML VIAL ONE (03:53)
[2023-10-22] MEDS ORDERED: ACETAMINOPHEN INJECTION 100 ML IVPB ONE (03:54)
[2023-10-22 04:29] LABS: HEMATOCRIT 40.2 % (32.4-45.2); HEMOGLOBIN 13.1 GM/dL (10.7-15.3); MCH 29.5 pg (25.7-33.7); MCHC 32.6 g/dl (32.0-36.0); MEAN CELL VOLUME 90.3 fl (80-96); PLATELET COUNT 250 10^3/uL (134-434); RBC 4.45 M/mm3 (3.60-5.2); RDW 15.5 % (11.6-15.6)
[2023-10-22 04:34] LABS: VENOUS BASE EXCESS 3.6 mmol/L (-2-2); VENOUS O2 SATURATION 24.6 % (70-80); VENOUS PCO2 40.1 mmHg (38-52); VENOUS PH 7.457 (7.310-7.410)
[2023-10-22 04:40] LABS: CHLORIDE 102 mmol/L (98-107); SODIUM 131 mmol/L (136-145)
[2023-10-22 04:43] LABS: ALBUMIN 3.3 g/dl (3.4-5.0); CO2 25 mmol/L (21-32); GLUCOSE,RANDOM 158 mg/dL (74-106)
[2023-10-22 04:46] LABS: CREATININE 1.1 mg/dL (0.55-1.3); PHOSPHOROUS 2.6 mg/dL (2.5-4.9); SGOT/AST 58 U/L (15-37)
[2023-10-22 04:48] LABS: BILIRUBIN,TOTAL 0.3 mg/dL (0.2-1); TOT PROT 7.8 g/dl (6.4-8.2)
[2023-10-22 04:49] LABS: ALK PHOS 115 U/L (45-117)
[2023-10-22 05:07] LABS: SGPT/ALT 18 U/L (13-61)
[2023-10-22] MEDS ORDERED: morphine CARPU-JECT 2 MG/1 ML DISP.SYRIN IVPUSH ONE (05:44)
[2023-10-22] MEDS ORDERED: FAMOTIDINE 20 MG/50 ML IVPB 20 MG/50 ML MG IVPB ONE ×2 (05:44→05:54)
[2023-10-22] MEDS ORDERED: ONDANSETRON 4 MG/2 ML VIAL ONE (05:54)
[2023-10-22] MEDS ORDERED: morphine SULFATE 4 MG/ML VIAL ONE (05:54)
[2023-10-22 06:45] LABS: ANION GAP 4 mmol/L (4-13); MAGNESIUM 1.9 mg/dL (1.8-2.4); POTASSIUM 8.8 mmol/L (3.5-5.1)
[2023-10-22 06:48] LABS: ANISOCYTOSIS 3+; MACROCYTOSIS 0; OVALOCYTE 1+; ROULEAU 1+
[2023-10-22 08:38] LABS: URINE APPEARANCE CLEAR; URINE BILIRUBIN NEGATIVE (NEGATIVE); URINE COLOR YELLOW; URINE GLUCOSE (UA) NEGATIVE (NEGATIVE); URINE KETONE NEGATIVE (NEGATIVE); URINE LEUK ESTERASE NEGATIVE (NEGATIVE); URINE NITRITE NEGATIVE (NEGATIVE); URINE PROTEIN NEGATIVE (NEGATIVE); URINE UROBILINOGEN 0.2 mg/dL (0.2-1.0)
[2023-10-22 09:27] LABS: POTASSIUM 4.1 mmol/L (3.5-5.1)
[2023-10-22 09:29] LABS: CALCIUM 8.8 mg/dL (8.5-10.1)
[2023-10-22 09:30] LABS: ALBUMIN 3.2 g/dl (3.4-5.0); BLOOD UREA NITROGEN 15.7 mg/dL (7-18)
[2023-10-22 09:33] LABS: CREATININE 0.8 mg/dL (0.55-1.3)
[2023-10-22 09:34] LABS: BILIRUBIN,TOTAL 0.2 mg/dL (0.2-1); TOT PROT 6.6 g/dl (6.4-8.2)
[2023-10-22] MEDS ORDERED: BISACODYL 10 MG SUPP.RECT PR PRN (14:27)
[2023-10-22] MEDS ORDERED: SODIUM CHLORIDE 1,000 ML IV SCH (14:45)
[2023-10-22] MEDS: DEXAMETHASONE SOD PHOSPHATE 10 MG/1 ML VIAL IVPUSH SCH (15:28)
[2023-10-22] MEDS ORDERED: ONDANSETRON 4 MG/2 ML VIAL IVPUSH PRN (15:30)
[2023-10-22] MEDS ORDERED: NITROGLYCERIN SUBLINGUAL 1/150 0.4 MG TAB SL PRN (15:31)
[2023-10-22] MEDS ORDERED: SUMAtriptan SUCCINATE 50 MG TABLET PO SCH (15:45)
[2023-10-22 16:44] LABS: INR 1.03 (0.83-1.09); PROTHROMBIN TIME (PATIENT) 11.9 SEC (9.7-13.0)
[2023-10-22] MEDS ORDERED: REMDESIVIR 200 MG in SODIUM CHLORIDE 250 ML IVPB ONE (17:00)
[2023-10-22] MEDS: MELATONIN 1 MG TABLET PO SCH (23:27)
[2023-10-22] MEDS: PREGABALIN 25 MG CAPSULE PO SCH (23:27)
[2023-10-22] MEDS: PANTOPRAZOLE 40 MG TABLET PO SCH (23:27)
[2023-10-23] MEDS: BUDESONIDE/FORMETEROL FUMARATE 160/4.5 mcg INHALER IH SCH ×3 (00:19→21:08)
[2023-10-23] MEDS: LEVOTHYROXINE NA 25 MCG TABLET (FP) PO SCH (06:11)
[2023-10-23] MEDS ORDERED: ACETAMINOPHEN 1000 MG/100 ML BAG IVPB ONE (06:45)
[2023-10-23 07:53] LABS: HEMATOCRIT 33.5 % (32.4-45.2); HEMOGLOBIN 10.7 GM/dL (10.7-15.3); LYMPH % 8.8 % (8-40); MCH 29.2 pg (25.7-33.7); MCHC 31.9 g/dl (32.0-36.0); MEAN CELL VOLUME 91.6 fl (80-96); MEAN PLT VOLUME 9.3 fl (7.5-11.1); MONO % 8.7 % (3.8-10.2); NEUT % 82.5 % (42.8-82.8); PLATELET COUNT 196 10^3/uL (134-434); RBC 3.66 M/mm3 (3.60-5.2); RDW 15.2 % (11.6-15.6); WHITE BLOOD COUNT 6.2 K/mm3 (4.0-10.0)
[2023-10-23 08:09] LABS: POTASSIUM 3.7 mmol/L (3.5-5.1)
[2023-10-23 08:14] LABS: CALCIUM 8.8 mg/dL (8.5-10.1)
[2023-10-23 08:15] LABS: ALBUMIN 2.9 g/dl (3.4-5.0); BLOOD UREA NITROGEN 14.7 mg/dL (7-18); CREATININE 0.6 mg/dL (0.55-1.3); PHOSPHOROUS 3.8 mg/dL (2.5-4.9)
[2023-10-23 08:16] LABS: BILIRUBIN,TOTAL 0.2 mg/dL (0.2-1); TOT PROT 5.9 g/dl (6.4-8.2)
[2023-10-23] MEDS: ENOXAPARIN NA (PORCINE) 40 MG/0.4 ML DISP.SYRIN SQ SCH (09:16)
[2023-10-23] MEDS: POLYETHYLENE GLYCOL (HEALTHYLAX) 3350 17 GM PACKET PO SCH (09:16)
[2023-10-23] MEDS: ISOSORBIDE MONONITRATE 30 MG TAB.SR.24H (FP) PO SCH (09:17)
[2023-10-23] MEDS: PANTOPRAZOLE 40 MG TABLET PO SCH ×2 (09:17→21:08)
[2023-10-23] MEDS: LISINOPRIL 10 MG TABLET PO SCH (09:17)
[2023-10-23] MEDS: FUROSEMIDE 20 MG TABLET (FP) PO SCH (09:17)
[2023-10-23] MEDS: DEXAMETHASONE SOD PHOSPHATE 10 MG/1 ML VIAL IVPUSH SCH (09:18)
[2023-10-23] MEDS: PREGABALIN 25 MG CAPSULE PO SCH ×2 (09:21→21:08)
[2023-10-23] MEDS: SUMAtriptan SUCCINATE 50 MG TABLET PO PRN ×2 (09:28→23:51)
[2023-10-23] MEDS ORDERED: REMDESIVIR 100 MG in SODIUM CHLORIDE 250 ML IVPB ONE (15:29)
[2023-10-23] MEDS: MELATONIN 1 MG TABLET PO SCH (21:08)
[2023-10-24] MEDS: LEVOTHYROXINE NA 25 MCG TABLET (FP) PO SCH (06:34)
[2023-10-24] MEDS ORDERED: oxyCODONE HCL 5 MG TABLET PO PRN (08:28)
[2023-10-24] MEDS ORDERED: ACETAMINOPHEN 325 MG TABLET (FP) PO PRN (08:29)
[2023-10-24] MEDS: ACETAMINOPHEN 325 MG TABLET (FP) PO PRN ×3 (08:40→23:30)
[2023-10-24] MEDS: oxyCODONE HCL 5 MG TABLET PO PRN ×3 (08:40→23:30)
[2023-10-24] MEDS: ENOXAPARIN NA (PORCINE) 40 MG/0.4 ML DISP.SYRIN SQ SCH (09:41)
[2023-10-24] MEDS: FUROSEMIDE 20 MG TABLET (FP) PO SCH (09:42)
[2023-10-24] MEDS: ISOSORBIDE MONONITRATE 30 MG TAB.SR.24H (FP) PO SCH (09:42)
[2023-10-24] MEDS: PANTOPRAZOLE 40 MG TABLET PO SCH ×2 (09:42→21:01)
[2023-10-24] MEDS: PREGABALIN 25 MG CAPSULE PO SCH ×2 (09:42→21:01)
[2023-10-24] MEDS: LISINOPRIL 10 MG TABLET PO SCH (09:43)
[2023-10-24] MEDS: DEXAMETHASONE SOD PHOSPHATE 10 MG/1 ML VIAL IVPUSH SCH (09:44)
[2023-10-24] MEDS: POLYETHYLENE GLYCOL (HEALTHYLAX) 3350 17 GM PACKET PO SCH (09:44)
[2023-10-24] MEDS: BUDESONIDE/FORMETEROL FUMARATE 160/4.5 mcg INHALER IH SCH ×2 (09:45→21:02)
[2023-10-24] MEDS ORDERED: MECLIZINE HCL 12.5 MG TABLET PO PRN (13:52)
[2023-10-24] MEDS ORDERED: REMDESIVIR 100 MG in SODIUM CHLORIDE 250 ML IVPB ONE (15:29)
[2023-10-24 16:36] LABS: HEMATOCRIT 36.6 % (32.4-45.2); HEMOGLOBIN 11.9 GM/dL (10.7-15.3); MCH 29.6 pg (25.7-33.7); MCHC 32.6 g/dl (32.0-36.0); MEAN CELL VOLUME 90.7 fl (80-96); MEAN PLT VOLUME 8.6 fl (7.5-11.1); PLATELET COUNT 218 10^3/uL (134-434); RBC 4.03 M/mm3 (3.60-5.2); RDW 15.4 % (11.6-15.6)
[2023-10-24] MEDS: FLUTICASONE PROP 0.05% 16 GM NASAL SPRAY NS SCH (18:22)
[2023-10-24] MEDS: MELATONIN 1 MG TABLET PO SCH (21:01)
[2023-10-24] MEDS: SUMAtriptan SUCCINATE 50 MG TABLET PO PRN (21:03)
[2023-10-24] MEDS ORDERED: MELATONIN 1 MG TABLET PO ONE (21:31)
[2023-10-25] MEDS: LEVOTHYROXINE NA 25 MCG TABLET (FP) PO SCH (06:19)
[2023-10-25] MEDS: oxyCODONE HCL 5 MG TABLET PO PRN ×2 (08:14→17:53)
[2023-10-25] MEDS: ACETAMINOPHEN 325 MG TABLET (FP) PO PRN ×2 (08:15→17:51)
[2023-10-25] MEDS: ENOXAPARIN NA (PORCINE) 40 MG/0.4 ML DISP.SYRIN SQ SCH (09:53)
[2023-10-25] MEDS: LISINOPRIL 10 MG TABLET PO SCH (09:54)
[2023-10-25] MEDS: ISOSORBIDE MONONITRATE 30 MG TAB.SR.24H (FP) PO SCH (09:54)
[2023-10-25] MEDS: SERTRALINE HCL 50 MG TABLET (FP) PO SCH (09:54)
[2023-10-25] MEDS: FUROSEMIDE 20 MG TABLET (FP) PO SCH (09:54)
[2023-10-25] MEDS: POLYETHYLENE GLYCOL (HEALTHYLAX) 3350 17 GM PACKET PO SCH (09:54)
[2023-10-25] MEDS: PANTOPRAZOLE 40 MG TABLET PO SCH ×2 (09:54→21:21)
[2023-10-25] MEDS: BUDESONIDE/FORMETEROL FUMARATE 160/4.5 mcg INHALER IH SCH ×2 (09:54→21:21)
[2023-10-25] MEDS: PREGABALIN 25 MG CAPSULE PO SCH ×2 (09:54→21:21)
[2023-10-25] MEDS: FLUTICASONE PROP 0.05% 16 GM NASAL SPRAY NS SCH (09:55)
[2023-10-25] MEDS: MELATONIN 1 MG TABLET PO SCH (21:21)
[2023-10-25] MEDS: SUMAtriptan SUCCINATE 50 MG TABLET PO PRN (22:07)
[2023-10-26] MEDS: oxyCODONE HCL 5 MG TABLET PO PRN ×2 (03:02→11:48)
[2023-10-26] MEDS: LEVOTHYROXINE NA 25 MCG TABLET (FP) PO SCH (06:34)
[2023-10-26] MEDS: PANTOPRAZOLE 40 MG TABLET PO SCH (09:45)
[2023-10-26] MEDS: POLYETHYLENE GLYCOL (HEALTHYLAX) 3350 17 GM PACKET PO SCH (09:45)
[2023-10-26] MEDS: ENOXAPARIN NA (PORCINE) 40 MG/0.4 ML DISP.SYRIN SQ SCH (09:45)
[2023-10-26] MEDS: SERTRALINE HCL 50 MG TABLET (FP) PO SCH (09:46)
[2023-10-26] MEDS: FLUTICASONE PROP 0.05% 16 GM NASAL SPRAY NS SCH (09:46)
[2023-10-26] MEDS: PREGABALIN 25 MG CAPSULE PO SCH (09:46)
[2023-10-26] MEDS: FUROSEMIDE 20 MG TABLET (FP) PO SCH (09:46)
[2023-10-26] MEDS: ISOSORBIDE MONONITRATE 30 MG TAB.SR.24H (FP) PO SCH (09:46)
[2023-10-26] MEDS: LISINOPRIL 10 MG TABLET PO SCH (09:46)
[2023-10-26] MEDS: BUDESONIDE/FORMETEROL FUMARATE 160/4.5 mcg INHALER IH SCH (09:47)
[2023-10-26 14:58] VITALS: BP 117/47; PULSE 79; RESP 20; TEMP 98.2
== END 2023-10-26 16:32 | disposition home or self-care (01) ==
LOC: JER 02:50 → JERBED 12:41 → J4W 20:36
PROVIDERS: ADMIT Internal Medicine; ATTEND Internal Medicine
PROC: 3E033NZ Introduction of Analgesics, Hypnotics, Sedatives into Peripheral Vein, Percutaneous Approach (ICD-10-PCS; principal; 2023-10-22)
PROC: 3E023GC Introduction of Other Therapeutic Substance into Muscle, Percutaneous Approach (ICD-10-PCS; 2023-10-22)
PROC: 3E033GC Introduction of Other Therapeutic Substance into Peripheral Vein, Percutaneous Approach (ICD-10-PCS; 2023-10-22)
DX: U07.1 COVID-19 (principal); K83.8 Other specified diseases of biliary tract; Z87.19 Personal history of other diseases of the digestive system; K63.89 Other specified diseases of intestine; F11.20 Opioid dependence, uncomplicated; J45.909 Unspecified asthma, uncomplicated; K29.70 Gastritis, unspecified, without bleeding; G89.4 Chronic pain syndrome; Z87.440 Personal history of urinary (tract) infections; R10.9 Unspecified abdominal pain; K57.90 Diverticulosis of intestine, part unspecified, without perforation or abscess without bleeding; K21.9 Gastro-esophageal reflux disease without esophagitis; Z90.49 Acquired absence of other specified parts of digestive tract; I34.1 Nonrheumatic mitral (valve) prolapse; R42 Dizziness and giddiness; R11.2 Nausea with vomiting, unspecified; I50.9 Heart failure, unspecified; Z88.8 Allergy status to other drugs, medicaments and biological substances; Z91.011 Allergy to milk products
CPT/HCPCS: 0241U-QW; 36415; 70450-TC; 70496-TC; 71045-TC-FY; 74177-TC; 74190-TC-FY; 80053; 81003; 82728; 82803; 82962; 83036; 83605; 83690; 83735; 84100; 84484; 85025; 85027; 85379; 85610; 85651; 86140; 87086; 93005; 93010; 96365; 96366; 96367; 96372; 96375; 96376; 97116-GP; 97161-GP; 99285-25; G0378; J0248; J1100; Q9967

== ENCOUNTER 2023-11-09 11:22 | Day surgery (SDC) | payer OTHER ==
[~2023-11-09 11:22] MED LIST changes: -IRON SUCROSE INJECTION 200 MG in SODIUM CHLORIDE 100 ML IVPB ONE; +SODIUM CHLORIDE 500 ML IV ONE
[2023-11-09] MEDS ORDERED: CYANOCOBALAMIN (VITAMIN B-12) 1000 MCG/1 ML VIAL IM ONE (12:45)
[2023-11-09] MEDS ORDERED: IRON SUCROSE COMPLEX 200 MG in SODIUM CHLORIDE 100 ML IVPB ONE (12:45)
[2023-11-09 18:05] VITALS: RESP 20; TEMP 98.4
[2023-11-09 18:07] VITALS: BP 140/53; PULSE 99
[2023-11-09] MEDS ORDERED: PORTA CATH FLUSH 10 ML IVPUSH PRN (18:26)
== END 2023-11-09 14:50 | disposition home or self-care (01) ==
LOC: JONCNONCHE 11:22 → J7W 11:23 → JONCNONCHE 14:50
PROVIDERS: ATTEND Internal Medicine Hematology & Oncology
PROC: 3E033GC Introduction of Other Therapeutic Substance into Peripheral Vein, Percutaneous Approach (ICD-10-PCS; principal; 2023-11-09)
DX: D50.0 Iron deficiency anemia secondary to blood loss (chronic) (principal)
CPT/HCPCS: 96365; J2997

== ENCOUNTER 2023-11-16 10:36 | Day surgery (SDC) | payer OTHER ==
[2023-11-16] MEDS: IRON SUCROSE COMPLEX 200 MG in SODIUM CHLORIDE 100 ML IVPB ONE (12:20)
[2023-11-16] MEDS: CYANOCOBALAMIN (VITAMIN B-12) 1000 MCG/1 ML VIAL IM ONE (12:23)
[2023-11-16] MEDS: PORTA CATH FLUSH 10 ML IVPUSH PRN (12:55)
[2023-11-16 15:52] VITALS: BP 120/46; PULSE 58; RESP 18; TEMP 98.3
== END 2023-11-16 13:20 | disposition home or self-care (01) ==
LOC: JONCNONCHE 10:36 → J7W 10:37 → JONCNONCHE 13:20
PROVIDERS: ATTEND Internal Medicine Hematology & Oncology
PROC: 3E043GC Introduction of Other Therapeutic Substance into Central Vein, Percutaneous Approach (ICD-10-PCS; principal; 2023-11-16)
DX: D50.0 Iron deficiency anemia secondary to blood loss (chronic) (principal)
CPT/HCPCS: 96365; J2997

== ENCOUNTER 2023-11-30 10:54 | Day surgery (SDC) | payer OTHER ==
[2023-11-30] MEDS: IRON SUCROSE COMPLEX 200 MG in SODIUM CHLORIDE 100 ML IVPB ONE (11:26)
[2023-11-30] MEDS: CYANOCOBALAMIN (VITAMIN B-12) 1000 MCG/1 ML VIAL IM ONE (11:58)
[2023-11-30] MEDS: PORTA CATH FLUSH 10 ML IVPUSH PRN (12:00)
[2023-11-30 17:28] VITALS: BP 105/53; TEMP 98.8
[2023-11-30 17:40] VITALS: PULSE 80; RESP 20
== END 2023-11-30 12:05 | disposition home or self-care (01) ==
LOC: J7W 10:54 → JONCNONCHE 10:54
PROVIDERS: ATTEND Internal Medicine Hematology & Oncology
PROC: 3E033GC Introduction of Other Therapeutic Substance into Peripheral Vein, Percutaneous Approach (ICD-10-PCS; principal; 2023-11-30)
DX: D50.9 Iron deficiency anemia, unspecified (principal)
CPT/HCPCS: 96365

== ENCOUNTER 2023-12-14 11:20 | Day surgery (SDC) | payer OTHER ==
[~2023-12-14 11:20] MED LIST changes: +CYANOCOBALAMIN (VITAMIN B-12) 1000 MCG/1 ML VIAL IM ONE; +IRON SUCROSE COMPLEX 200 MG in SODIUM CHLORIDE 100 ML IVPB ONE; -SODIUM CHLORIDE 500 ML IV ONE
[2023-12-14] MEDS: IRON SUCROSE COMPLEX 200 MG in SODIUM CHLORIDE 100 ML IVPB ONE (11:23)
[2023-12-14] MEDS: CYANOCOBALAMIN (VITAMIN B-12) 1000 MCG/1 ML VIAL IM ONE (11:23)
[2023-12-14] MEDS: PORTA CATH FLUSH 10 ML IVPUSH PRN (11:55)
[2023-12-14 13:50] VITALS: RESP 18; TEMP 98.3
[2023-12-14 13:59] VITALS: BP 114/34; PULSE 76
== END 2023-12-14 12:50 | disposition home or self-care (01) ==
LOC: JONCNONCHE 11:20 → J7W 11:20 → JONCNONCHE 12:50
PROVIDERS: ATTEND Internal Medicine Hematology & Oncology
PROC: 3E033GC Introduction of Other Therapeutic Substance into Peripheral Vein, Percutaneous Approach (ICD-10-PCS; principal; 2023-12-14)
DX: D50.9 Iron deficiency anemia, unspecified (principal)
CPT/HCPCS: 96365

== ENCOUNTER 2024-12-12 19:30 | Inpatient (IN) | payer OTHER ==
[2024-12-12] MEDS ORDERED: ACETAMINOPHEN INJECTION 100 ML ONE (20:54)
[2024-12-12] MEDS ORDERED: ONDANSETRON 4 MG/2 ML VIAL ONE (20:55)
[2024-12-12 21:03] LABS: BASO % 0.3 % (0-2.0); EOS % 0.3 % (0-4.5); HEMATOCRIT 40.8 % (32.4-45.2); LYMPH % 10.2 % (8-40); MCH 29.4 pg (25.7-33.7); MCHC 31.9 g/dl (32.0-36.0); MEAN PLT VOLUME 8.9 fl (7.5-11.1); MONO % 6.6 % (3.8-10.2); NEUT % 82.6 % (42.8-82.8); PLATELET COUNT 279 10^3/uL (134-434); RBC 4.44 M/mm3 (3.60-5.2); RDW 15.4 % (11.6-15.6); WHITE BLOOD COUNT 9.3 K/mm3 (4.0-10.0)
[2024-12-12] MEDS: SODIUM CHLORIDE 0.9% 500 ML INFUS.BAG IV ONE (21:08)
[2024-12-12] MEDS: ONDANSETRON 4 MG/2 ML VIAL IVPB ONE (21:09)
[2024-12-12] MEDS: ACETAMINOPHEN 1000 MG/100 ML BAG IVPB ONE (21:09)
[2024-12-12 21:13] LABS: INR 1.06 (0.83-1.09); PROTHROMBIN TIME (PATIENT) 11.7 SEC (9.7-13.0)
[2024-12-12 21:16] LABS: ACTIVATED PTT 28.3 SECONDS (25.2-36.5)
[2024-12-12 21:28] LABS: POTASSIUM 3.6 mmol/L (3.5-5.1)
[2024-12-12 21:30] LABS: ALBUMIN 3.9 g/dl (3.4-5.0); CALCIUM 9.5 mg/dL (8.5-10.1)
[2024-12-12 21:31] LABS: BLOOD UREA NITROGEN 16.3 mg/dL (7-18); MAGNESIUM 1.7 mg/dL (1.8-2.4)
[2024-12-12 21:33] LABS: CREATININE 0.8 mg/dL (0.55-1.3)
[2024-12-12 21:35] LABS: BILIRUBIN,TOTAL 0.5 mg/dL (0.2-1); TOT PROT 7.5 g/dl (6.4-8.2)
[2024-12-12] MEDS ORDERED: METOCLOPRAMIDE HCL INJECTION 10 MG/2 ML VIAL ONE (22:29)
[2024-12-12] MEDS ORDERED: morphine SULFATE 4 MG/ML VIAL ONE (22:29)
[2024-12-12] MEDS: morphine CARPU-JECT 4 MG/1 ML DISP.SYRIN IVPUSH ONE (22:33)
[2024-12-12] MEDS: METOCLOPRAMIDE HCL INJECTION 10 MG/2 ML VIAL IVPB ONE (22:34)
[2024-12-13] MEDS ORDERED: morphine SULFATE 4 MG/ML VIAL ONE (01:24)
[2024-12-13] MEDS: morphine CARPU-JECT 4 MG/1 ML DISP.SYRIN IVPUSH ONE (01:31)
[2024-12-13] MEDS ORDERED: HYDROmorphone HCL CARPU-JECT 2 MG/1 ML DISP.SYRIN ONE (01:55)
[2024-12-13] MEDS: HYDROmorphone HCl 2 MG/ML VIAL IVPB ONE (02:27)
[2024-12-13 03:39] LABS: PH,URINE 6.5 (5.0-8.0); URINE APPEARANCE Clear; URINE BILIRUBIN 1+ (NEGATIVE); URINE COLOR Yellow; URINE GLUCOSE (UA) Negative (NEGATIVE); URINE KETONE 4+ (NEGATIVE); URINE LEUK ESTERASE Trace (NEGATIVE); URINE NITRITE Negative (NEGATIVE); URINE PROTEIN 1+ (NEGATIVE)
[2024-12-13] MEDS ORDERED: SIMETHICONE 80 MG TAB.CHEW (FP) ONE (03:48)
[2024-12-13] MEDS: MAGNESIUM SULFATE IN WATER 2 GM/50 ML IVPB IVPB ONE (03:54)
[2024-12-13] MEDS: SIMETHICONE 80 MG TAB.CHEW (FP) PO ONE (03:54)
[2024-12-13] MEDS ORDERED: PATIENT'S OWN MEDICATION (NON-FORMULARY) (Hydrocodone/Acetaminophen 1 TAB Tablet) PO PRN (04:59)
[2024-12-13] MEDS ORDERED: SUMAtriptan SUCCINATE 50 MG TABLET PO PRN (05:00)
[2024-12-13 06:02] LABS: HEMATOCRIT 38.4 % (32.4-45.2); MCHC 31.2 g/dl (32.0-36.0); MEAN CELL VOLUME 93.1 fl (80-96); MEAN PLT VOLUME 8.9 fl (7.5-11.1); PLATELET COUNT 270 10^3/uL (134-434); RBC 4.12 M/mm3 (3.60-5.2); RDW 15.8 % (11.6-15.6); WHITE BLOOD COUNT 9.2 K/mm3 (4.0-10.0)
[2024-12-13] MEDS: SODIUM CHLORIDE 1,000 ML IV SCH (06:04)
[2024-12-13] MEDS ORDERED: ONDANSETRON 4 MG/2 ML VIAL ONE (06:17)
[2024-12-13] MEDS: ONDANSETRON 4 MG/2 ML VIAL IVPUSH PRN ×2 (06:23→16:26)
[2024-12-13 06:25] LABS: POTASSIUM 3.6 mmol/L (3.5-5.1)
[2024-12-13 06:27] LABS: ALBUMIN 3.7 g/dl (3.4-5.0); CALCIUM 8.9 mg/dL (8.5-10.1)
[2024-12-13 06:28] LABS: BLOOD UREA NITROGEN 13.7 mg/dL (7-18)
[2024-12-13 06:30] LABS: CREATININE 0.7 mg/dL (0.55-1.3)
[2024-12-13 06:32] LABS: BILIRUBIN,TOTAL 0.4 mg/dL (0.2-1)
[2024-12-13] MEDS ORDERED: SIMETHICONE 80 MG TAB.CHEW (FP) PO SCH (07:00)
[2024-12-13] MEDS: ACETAMINOPHEN 1000 MG/100 ML BAG IVPB ONE (07:52)
[2024-12-13] MEDS ORDERED: LORazepam 2 MG/ML SDV VIAL ONE (09:47)
[2024-12-13] MEDS ORDERED: PANTOPRAZOLE 40 MG TABLET PO SCH (10:00)
[2024-12-13] MEDS ORDERED: POLYETHYLENE GLYCOL (HEALTHYLAX) 3350 17 GM PACKET PO SCH (10:00)
[2024-12-13] MEDS: DICYCLOMINE HCL 10 MG CAPSULE PO SCH (10:20)
[2024-12-13] MEDS: LISINOPRIL 10 MG TABLET PO SCH (10:20)
[2024-12-13] MEDS: POTASSIUM CHLORIDE TABS 10 MEQ TABLET.ER (FP) PO SCH (10:20)
[2024-12-13] MEDS: LEVOTHYROXINE NA 25 MCG TABLET (FP) PO SCH (10:20)
[2024-12-13 10:37] LABS: MAGNESIUM 2.6 mg/dL (1.8-2.4)
[2024-12-13] MEDS: LORazepam 2 MG/ML SDV VIAL IVPUSH ONE (10:45)
[2024-12-13] MEDS: BISACODYL 10 MG SUPP.RECT PR ONE (12:56)
[2024-12-13] MEDS: SERTRALINE HCL 50 MG TABLET (FP) PO SCH (12:57)
[2024-12-13] MEDS: SIMETHICONE 80 MG TAB.CHEW (FP) PO SCH (12:57)
[2024-12-13] MEDS: ENOXAPARIN NA (PORCINE) 40 MG/0.4 ML DISP.SYRIN SQ SCH (13:00)
[2024-12-13] MEDS: ACETAMINOPHEN/CAFFEINE/BUTALBITAL 1 TAB PO PRN (16:26)
[2024-12-13] MEDS: IRON SUCROSE INJECTION 200 MG in SODIUM CHLORIDE 100 ML IVPB ONE (17:08)
[2024-12-13] MEDS ORDERED: ACETAMINOPHEN 325 MG TABLET (FP) PO PRN (21:56)
[2024-12-13] MEDS: MONTELUKAST NA 10 MG TABLET PO SCH (21:59)
[2024-12-13] MEDS: oxyCODONE HCL 5 MG TABLET PO PRN (22:38)
[2024-12-13] MEDS: MELATONIN 5 MG TABLETS PO PRN (22:38)
[2024-12-14] MEDS: SUMAtriptan SUCCINATE 50 MG TABLET PO ONE ×2 (00:02→17:56)
[2024-12-14] MEDS: MICONAZOLE NITRATE 71 GM POWDER TP SCH (11:26)
[2024-12-14] MEDS: CEFTRIAXONE 1 G/50 ML PREMIX 50 ML IVPB SCH (11:26)
[2024-12-14 15:38] VITALS: BMI 29.2
[2024-12-14] MEDS: MELATONIN 5 MG TABLETS PO ONE (23:50)
[2024-12-15 02:45] VITALS: RESP 18
[2024-12-15] MEDS ORDERED: ACETAMINOPHEN 1000 MG/100 ML BAG IVPB PRN (10:08)
[2024-12-15] MEDS: ACETAMINOPHEN 1000 MG/100 ML BAG IVPB PRN (10:08)
[2024-12-15] MEDS: CEPHALEXIN MONOHYDRATE 500 MG CAPSULE (UD) PO SCH (10:14)
[2024-12-15] MEDS: NITROFURANTOIN MONOHYD/M-CRYST 100 MG CAPSULE PO SCH (11:58)
[2024-12-15] MEDS: oxyCODONE HCL 5 MG TABLET PO PRN (16:03)
[2024-12-15] MEDS ORDERED: AMOX TR/POT CLAV 875MG/125MG TABLETS (FP) PO SCH (17:30)
[2024-12-16 15:24] VITALS: BP 122/82; PULSE 96; TEMP 98.4
== END 2024-12-16 14:12 | disposition home or self-care (01) | DRG 690 ==
LOC: JER 19:30 → JERBED 12-13 01:44 → J8W 12-13 15:12
PROVIDERS: ADMIT Internal Medicine; ATTEND Student in an Organized Health Care Education/Training Program
DX: N39.0 Urinary tract infection, site not specified (principal); F11.20 Opioid dependence, uncomplicated; K91.2 Postsurgical malabsorption, not elsewhere classified; K56.7 Ileus, unspecified; K59.03 Drug induced constipation; T40.2X5A Adverse effect of other opioids, initial encounter; Y92.89 Other specified places as the place of occurrence of the external cause; I10 Essential (primary) hypertension; J45.909 Unspecified asthma, uncomplicated; E03.9 Hypothyroidism, unspecified; D51.9 Vitamin B12 deficiency anemia, unspecified; I25.10 Atherosclerotic heart disease of native coronary artery without angina pectoris; H40.9 Unspecified glaucoma; K21.9 Gastro-esophageal reflux disease without esophagitis; R19.7 Diarrhea, unspecified; K59.09 Other constipation; E87.6 Hypokalemia
CPT/HCPCS: 0241U-QW; 36415; 74177-TC; 80053; 81003; 83605; 83690; 83735; 83880; 85025; 85027; 85610; 85730; 87045; 87046; 87086; 87186; 87209; 93005; 93010; 97116-GP; 97161-GP; 99285-25; J0131; Q9967

== ENCOUNTER 2025-03-26 11:26 | Day surgery (SDC) | payer OTHER ==
[2025-03-26 11:44] VITALS: RESP 20; TEMP 98.2
[2025-03-26] MEDS: IRON SUCROSE INJECTION 200 MG in SODIUM CHLORIDE 100 ML IVPB ONE (11:45)
[2025-03-26] MEDS: CYANOCOBALAMIN (VITAMIN B-12) 1000 MCG/1 ML VIAL IM ONE (12:18)
[2025-03-26] MEDS: PORTA CATH FLUSH 10 ML IVPUSH PRN (12:25)
[2025-03-26 12:30] VITALS: BP 131/58; PULSE 88
== END 2025-03-26 12:50 | disposition home or self-care (01) ==
LOC: JONCNONCHE 11:26
PROVIDERS: ATTEND Internal Medicine Hematology & Oncology
PROC: 3E033GC Introduction of Other Therapeutic Substance into Peripheral Vein, Percutaneous Approach (ICD-10-PCS; principal; 2025-03-26)
DX: D50.9 Iron deficiency anemia, unspecified (principal)
CPT/HCPCS: 96366; J1756